=== PATIENT | male | born 1960 | race Caucasian/White ===

== ENCOUNTER 2022-01-27 15:58 | Outpatient (REF) | payer BC, SELFPAY ==
--- OUTSIDE RECORDS SUMMARY | 2022-01-27 16:01 | XMS_ITS | Encounter Summary ---
:1960 Author Organization [facility] Address [address] [place] [address] Care Team Providers Name Role Phone Bc Alvarado Primary Care Provider [phone] Unknown, Provider Primary Care Provider Encounter Details Date Type Department Care Team Description 01/26/2017 Historical Results Only [facility] - Janes Ramírez MD [facility] - Main [facility] [address] [place], [place] [address] Social History Tobacco Use Types Packs/Day Years Used Date Smoking Tobacco: Never Assessed Sex Assigned at Date Recorded Not on file documented as of this encounter Plan of Treatment Not on filedocumented as of this encounter Procedures Procedure Name Priority Date/Time Associated Diagnosis Comme nts TSH Routine 01/26/2017 12:08 EST Results for this procedure are i n the results section . documented in this encounter Results TSH (01/26/2017 12:08 EST) athologist Signature THYROID STIM 2.14 0.46 - 01/26/2017 [facility] 4.68 19:06 EST [facility] uIU/ml CENTER LAB Specimen Anatomical Collection Method Collection Time Receive d Time (Source) Location / / Volume Laterality 01/26/2017 12:08 01/26/2017 EST 18:06 EST Noman Ramírez MD CHEMISTRY & BLOOD GAS ORDERA BLES Performing Organization Address City/State/ZIP Code Phon e Number [facility] [address] [place] [address] [facility] documented in this encounter Visit Diagnoses Not on filedocumented in this encounter Care Teams Windsmith Relationship Specialty Start Date End Date Bc Alvarado FNP PCP - General 03/21/13 04/28/[address] [place] [address] [phone] Unknown, Provider, PCP - General 04/29/17 01/25/19 documented as of this encounter
--- OUTSIDE RECORDS SUMMARY | 2022-01-27 16:01 | XMS_ITS | Encounter Summary ---
:[address] [facility] Address [address] [place] [address] Care Team Providers Name Role Phone Farhan Moss MD Primary Care Provider Encounter Details Date Type Department Care Team Description 05/30/2021 Travel Social History Tobacco Use Types Packs/Day Years Used Date Smoking Tobacco: Former Pipe Smokeless Tobacco: Never Alcohol Use Standard Drinks/Week Comments Not Currently 2 (1 standard drink = 0.6 oz pure alcoho l) Sex Assigned at Date Recorded Not on file COVID-19 Exposure Response Date Recorded In the last 10 days, have you been in contact with No / Unsu re 05/30/2021 8:38 EDT someone who was confirmed or suspected to have Coronavirus/COVID-19? documented as of this encounter Functional Status Functional Status Response Date of Assessment Are you deaf or do you have serious difficulty hearing? No 03/12/2021 Are you blind or do you have serious difficulty seeing, No 02/24/2021 even when wearing glasses? Do you have serious difficulty walking or climbing No 02/24/2021 stairs? (5 years old or older) Do you have difficulty dressing or bathing? (5 years old No 02/24/2021 or older) Because of a physical, mental, or emotional condition, No 05/30/2021 does this person have difficulty doing errands alone such as visiting a doctor's office or shopping? Cognitive Status Response Date of Assessment Because of a physical, mental, or emotional condition, No 05/30/2021 does this person have serious difficulty concentrating, remembering, or making decisions? documented as of this encounter Plan of Treatment Not on filedocumented as of this encounter Visit Diagnoses Not on filedocumented in this encounter Care Teams Coating Engineer Relationship Specialty Start Date End Date Farhan Moss MD PCP - General Emergency Medicine 03/25/21 [address] [place] [address] documented as of this encounter
--- OUTSIDE RECORDS SUMMARY | 2022-01-27 16:01 | XMS_ITS | Encounter Summary ---
:[address] [facility] Address [address] [place] [address] Care Team Providers Name Role Phone Bc Alvarado Primary Care Provider [phone] Unknown, Provider Primary Care Provider Encounter Details Date Type Department Care Team Description 03/07/2016 Historical Results Only [facility] - Janes Ramírez MD [facility] - Main [facility] [address] [place], [place] [address] Social History Tobacco Use Types Packs/Day Years Used Date Smoking Tobacco: Never Assessed Sex Assigned at Date Recorded Not on file documented as of this encounter Plan of Treatment Not on filedocumented as of this encounter Procedures Procedure Name Priority Date/Time Associated Comments Diagnosis COMPLETE BLOOD COUNT Routine 03/07/2016 15:13 Res ults for this WITH DIFFERENTIAL EST procedure are in (AUTO) the results section. PSA, ULTRASENSITIVE, Routine 03/07/2016 15:13 Res ults for this DIAGNOSTIC, S EST procedure are in UROLOGY/ONCOLOGY USE the res ults ONLY section. C REACTIVE PROTEIN Routine 03/07/2016 15:13 Resul ts for this EST procedure are i n the results section. TSH Routine 03/07/2016 15:13 Results for this EST procedure are i n the results section. HEPATIC FUNCTION Routine 03/07/2016 15:13 Results for this PANEL (ALB,ALK EST procedure are in PHOS,ALT,AST,DBIL,TOT the re sults TIFFANY,TOT PROT) section. BASIC METABOLIC PANEL Routine 03/07/2016 15:13 Re sults for this (BMP) EST procedure are i n the results section. documented in this encounter Results TSH (03/07/2016 15:13 EST) athologist Signature THYROID STIM 2.74 0.35 - 03/07/2016 [facility] 5.50 18:03 [facility] uIU/mL [place] [facility] Specimen Anatomical Collection Method Collection Time Receive d Time (Source) Location / / Volume Laterality 03/07/2016 15:13 03/07/2016 EST 17:11 EST Noman Ramírez MD CHEMISTRY & BLOOD GAS ORDERA BLES Performing Organization Address City/State/ZIP Code Phon e Number [facility] [address] LAB PSA, ULTRASENSITIVE, DIAGNOSTIC, S UROLOGY/ONCOLOGY USE ONLY (03/07/2016 15:13 EST) Analysis Performed At Patho logist Time [facility] PSA ULTRASENSTIVE 1.540 0.00 - 03/07/2016 [facility] 3.50 ng/mL 18:10 [facility] Comment: Method: Siemens [place]-Chemil[employer] nescence/LOCI technology Specimen Anatomical Collection Method Collection Time Receive d Time (Source) Location / / Volume Laterality 03/07/2016 15:13 03/07/2016 EST 17:11 EST Noman Ramírez MD CHEMISTRY & BLOOD GAS ORDERA BLES Performing Organization Address City/State/ZIP Code Phon e Number [facility] [address] LAB HEPATIC FUNCTION PANEL (ALB,ALK PHOS,ALT,AST,DBIL,TOT TIFFANY,TOT PROT) (03/07/2016 15:13 EST) athologist Signature Albumin % 4.2 3.4 - 5.0 03/07/2016 [facility] g/dL 18:10 [facility] ALKALINE 84 42 - 122 03/07/2016 [facility] PHOSPHATASE - U/L 18:10 [facility] BILIRUBIN TOTAL 0.5 0.0 - 1.0 03/07/2016 [facility] mg/dL 18:10 [facility] TOTAL PROTEIN - 7.6 6.4 - 8.2 03/07/2016 [facility] gm/dl 18:10 [facility] SGOT/AST - [facility] 19 10 - 37 03/07/2016 [facility] U/L 18:10 [facility] SGPT/ALT - [facility] 32 12 - 78 03/07/2016 [facility] U/L 18:10 [facility] BILIRUBIN DIRECT 0.1 0.0 - 0.2 03/07/2016 [facility] - [facility] mg/dL 18:10 [facility] Specimen Anatomical Collection Method Collection Time Receive d Time (Source) Location / / Volume Laterality 03/07/2016 15:13 03/07/2016 EST 17:11 EST Noman Ramírez MD CHEMISTRY & BLOOD GAS ORDERA BLES Performing Organization Address City/State/ZIP Code Phon e Number [facility] [address] LAB C REACTIVE PROTEIN (03/07/2016 15:13 EST) athologist Signature C-Reactive <2.9 0.0 - 3.0 03/07/2016 [facility] Protein mg/L 18:15 [facility] Specimen Anatomical Collection Method Collection Time Receive d Time (Source) Location / / Volume Laterality 03/07/2016 15:13 03/07/2016 EST 17:11 EST Noman Ramírez MD CHEMISTRY & BLOOD GAS ORDERA BLES Performing Organization Address City/State/ZIP Code Phon e Number [facility] [address] LAB BASIC METABOLIC PANEL (BMP) (03/07/2016 15:13 EST) athologist Signature BUN - [facility] 18 7 - 18 03/07/2016 [facility] mg/dL 18:10 [facility] CALCIUM - [facility] 8.6 8.5 - 10.1 03/07/2016 [facility] mg/dL 18:10 [facility] Chloride 104 98 - 107 03/07/2016 [facility] mEq/L 18:10 [facility] CO2 Total 25 21 - 32 03/07/2016 [facility] mEq/L 18:10 [facility] CREATININE 0.75 0.5 - 1.3 03/07/2016 [facility] mg/dL 18:10 [facility] eGFR >60 03/07/2016 [facility] 18:10 EST [facility] Comment: Chronic renal impairment is defined as G FR <60 Multiply result by 1.210 for Carlita rican patients. Anion Gap 12 5 - 15 03/07/2016 18:10 EST [facility] GLUCOSE - [facility] 89 70 - 100 mg/dL 03/07/2016 18:10 EST [facility] Potassium 4.0 3.5 - 5.0 mEq/L 03/07/2016 18:10 EST [facility] TRAL [facility] Sodium 141 135 - 145 mEq/L 03/07/2016 18:10 EST [facility] Specimen Anatomical Collection Method Collection Time Receive d Time (Source) Location / / Volume Laterality 03/07/2016 15:13 03/07/2016 EST 17:11 EST Noman Ramírez MD CHEMISTRY & BLOOD GAS ORDERA BLES Performing Organization Address City/State/ZIP Code Phon e Number [facility] [address] LAB COMPLETE BLOOD COUNT WITH DIFFERENTIAL (AUTO) (03/07/2016 15:13 EST) P athologist Signature ABSOLUTE 5.46 1.7 - 7.0 03/07/2016 [facility] NEUTROPHIL COUN 10e3/ul 17:37 [facility] BASO # - [facility] 0.04 0.0 - 0.3 03/07/2016 [facility] 10e3/uL 17:37 [facility] BASO % - [facility] 1 0 - 2 % 03/07/2016 [facility] 17:37 [facility] EOS # - [facility] 0.17 0.05 - 0.5 03/07/2016 [facility] 10e3/uL 17:37 [facility] EOS % - [facility] 2 0 - 5 % 03/07/2016 [facility] 17:37 [facility] GRAN % - [facility] 63 40 - 80 % 03/07/2016 [facility] 17:37 [facility] HEMATOCRIT - 43.8 36.0 - 03/07/2016 [facility] 52.0 % 17:37 [facility] HEMOGLOBIN - 14.5 13.7 - 03/07/2016 [facility] 17.5 g/dl 17:37 [facility] IG# - [facility] 0.01 0 - 0.07 03/07/2016 [facility] 10e3/uL 17:37 [facility] IG% - [facility] 0.1 0 - 0.9 % 03/07/2016 [facility] 17:37 [facility] LYMPH # - [facility] 2.53 0.9 - 2.9 03/07/2016 [facility] 10e3/uL 17:37 [facility] LYMPH% - [facility] 29 20 - 40 % 03/07/2016 [facility] 17:37 [facility] MEAN CORPUSCULAR 29.5 26 - 34 pg 03/07/2016 [facility] - [facility] 17:37 [facility] MEAN CORPUSCULAR 33.1 31 - 36 03/07/2016 [facility] CONC - [facility] g/dL 17:37 [facility] MEAN CELL VOLUME 89.0 77 - 100 03/07/2016 [facility] - CV fl 17:37 [facility] MONO # - [facility] 0.53 0.3 - 0.9 03/07/2016 [facility] 10e3/uL 17:37 [facility] MONO% - [facility] 6 0 - 12 % 03/07/2016 [facility] 17:37 [facility] PLATELET COUNT 363 150 - 400 03/07/2016 [facility] 10e3/ul 17:37 [facility] RED BLOOD COUNT 4.92 4.3 - 5.7 03/07/2016 [facility] - CV 10e6/ul 17:37 [facility] RED CELL DISTRI 13.2 11.8 - 03/07/2016 [facility] WIDTH - [facility] 15.6 % 17:37 [facility] WHITE BLOOD 8.7 3.5 - 10.5 03/07/2016 [facility] COUNT - CV 10e3/ul 17:37 [facility] Specimen Anatomical Collection Method Collection Time Receive d Time (Source) Location / / Volume Laterality 03/07/2016 15:13 03/07/2016 [facility] 17:11 EST Noman Ramírez MD HEMATOLOGY & PF4 ORDERABLES Performing Organization Address City/State/ZIP Code Phon e Number [facility] [address] LAB documented in this encounter Visit Diagnoses Not on filedocumented in this encounter Care Teams Ore Crushing Dust Collector Relationship Specialty Start Date End Date Bc Alvarado FNP PCP - General 03/21/13 04/28/[address] [place] [address] [phone] Unknown, Provider, PCP - General 04/29/17 01/25/19 documented as of this encounter
--- OUTSIDE RECORDS SUMMARY | 2022-01-27 16:01 | XMS_ITS | Encounter Summary ---
:1960 Author Organization [facility] Address [address] [place] [address] Care Team Providers Name Role Phone Brooks Duarte MD Primary Care Provider [phone] Encounter Details Date Type Department Care Team Description 03/12/2021 Travel Social History Tobacco Use Types Packs/Day Years Used Date Smoking Tobacco: Former Cigarettes Pipe Smokeless Tobacco: Never Alcohol Use Standard Drinks/Week Comments Yes 2 (1 standard drink = 0.6 oz pure pt rep orts having 2-3 drinks per alcohol) week Sex Assigned at Date Recorded Not on file COVID-19 Exposure Response Date Recorded In the last month, have you been in contact with No / Unsure 03/12/2021 2:45 EST someone who was confirmed or suspected to have Coronavirus / COVID-19? documented as of this encounter Functional Status [...] of a physical, mental, or emotional condition, do No 02/24/2021 you have difficulty doing errands alone such as visiting a doctor's office or shopping? (15 years old or older) Cognitive Status Response Date of Assessment Because of a physical, mental, or emotional condition, do No 02/24/2021 you have serious difficulty concentrating, remembering, or making decisions? (5 years old or older) documented as of this encounter Plan of Treatment Not on filedocumented as of this encounter Visit Diagnoses Not on filedocumented in this encounter Care Teams Manager Ship Relationship Specialty Start Date End Date Brooks Duarte MD PCP - General Family Medicine - Primary 02/21/21 [address] [place] [address] documented as of this encounter
--- OUTSIDE RECORDS SUMMARY | 2022-01-27 16:01 | XMS_ITS | Encounter Summary ---
:1960 Author Organization [facility] Address [address] [place] [address] Care Team Providers Name Role Phone Bc Alvarado FUNERAL HOME ASSISTANT Primary Care Provider [phone] Reason for Visit Reason Onset Date Comments Appointment Related 02/02/2017 Encounter Details Date Type Department Care Team Description 02/02/2017 Telephone [facility] Dilip Turpin MD Appointment Related General Surgery - [place] [address] [facility] [address] [facility] [address] [place] [address] [phone] (Wo rk) Social History Tobacco Use Types Packs/Day Years Used Date Smoking Tobacco: Never Assessed Sex Assigned at Date Recorded Not on file documented as of this encounter Miscellaneous Notes Telephone Encounter - Cassandra Chin RN - 02/02/2017 1036 EST Spoke to patient regarding an appt. He would like an urgent appt for his ear. He was prescribed antibiotics by Dr. Ramírez and feels his symptoms are better but is having pain on the outside of the ear. Iexplained if he wanted an urgent appt. Dr. Ramírez would need to speak directly to Dr. Turpin and we could accommodate him otherwise we could schedule him an appt and put him on the wait list. Perla will schedule and follow up with patient. Telephone Encounter - Page Doty - 02/02/2017 0904 EST Jun is returning a call to Cassandra in regards to his appointment with Dr. Turpin for his left ear. Please call good @ [phone] documented in this encounter Plan of Treatment Not on filedocumented as of this encounter Visit Diagnoses Not on filedocumented in this encounter Care Teams Investment Associate Relationship Specialty Start Date End Date Bc Alvarado FNP PCP - General 03/21/13 04/28/[address] [place] [phone] documented as of this encounter
--- OUTSIDE RECORDS SUMMARY | 2022-01-27 16:01 | XMS_ITS | Encounter Summary ---
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, unspecified chronicity Chronic deep vein thrombosis (DVT) of femoral vein of both lower extremities Steven Rodríguez MD [facility] Vascular Lab 3v Procedures Duplex Study for DVT, Bilat legs [facility] [place] [phone] [place] [address] Referral ID Status Reason Start Expiration Visits Visits Date Date Requested Authorized [id number] New Request Specialty 01/11/2023 1 1 Service 2 Requested Encounter Details Date Type Department Care Team Description 01/09/2022 Office Visit Vascular Surgery at Steven Rodríguez De ep vein thrombosis (DVT) of iliac vein of both lower extremities, unspecified chronicity; [facility] Chronic deep vein thrombosis (DVT) of fe moral vein of both lower extremities [facility] [address] [place] VASCULAR SURGERY [address] [place] [id number] [phone] Social History Tobacco Use Types Packs/Day Years Used Date Smoking Tobacco: Former Smokeless Tobacco: Never Alcohol Use Standard Drinks/Week Comments Not Currently 0 (1 standard drink = 0.6 oz pure alcoho l) about once a month Sex Assigned at Date Recorded Not on file documented as of this encounter Last Filed Vital Signs Vital Sign Reading Time Taken Comments Blood Pressure 109/84 01/09/2022 10:18 AM EST Pulse 69 01/09/2022 10:18 AM EST Temperature - - Respiratory Rate - - Oxygen Saturation - - Inhaled Oxygen Concentration - - Weight 95.3 kg (210 lb) 01/09/2022 10:18 AM EST pt repo rted Height 177.8 cm (5' 10) 01/09/2022 10:18 AM EST pt rep orted Body Mass Index 30.13 01/09/2022 10:18 AM EST documented in this encounter Progress Notes Steven Rodríguez MD - 01/09/2022 10:00 AM EST V[facility] Surgery Clinic Progress Note Subjective: Patient doing well, has some areas of numbness in areas near the incisions, which has improved Current Outpatient Medications: ??? acetaminophen (Tylenol) 325 mg Tablet, Take 650 mg by mouth every 6 hours as needed for Pain., Disp: , Rfl: ??? apixaban (Eliquis) 5 mg Tablet, Take 5 mg by mouth 2 times daily., Disp: , Rfl: ??? levothyroxine (SYNTHROID) 88 mcg Tablet, Take 88 mcg by mouth daily., Disp: , Rfl: ??? omeprazole (PRILOSEC) 20 mg Capsule, Delayed Release(E.C.), Take 20 mg by mouth daily., Disp: , Rfl: Objective: BP 133/77 HR 63 Incisions healing well, good color Areas of numbness around the previous surgical sites Duplex: Patent stented inferior vena cava with no direct evidence of thrombus. Flow is somewhat reduced in respirophasicity. Patent stented bilateral common and external iliac veins with no direct evidence of thrombus. Flow throughout is somewhat reduced in respirophasicity. No identifiable change when compared to the previous exam done 05/03/2021. Assessment: 60yo M s/p endovascular mechanical thrombectomy of IVC and right common and external iliac vein, IVC, right common and right external iliac vein stenting, compression thrombectomy of right lower leg, right leg 4-compartment fasciotomies (03/12/21), closures of fasciotomies (03/14/21, 03/18/21), placementof left common iliac vein stent placement, left common and external iliac vein stent placement, retrieval of IVC filter (03/15/21), and stent placement of left common iliac vein, balloon venoplasty and stent of placement of left femoral vein (05/02/21) doing well post-operatively. 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 He has no leg swelling. His incisions are all well- healed. His duplex shows widely patent bilateral common iliac and vena cava stents with good respiratory phasicity. He is currently on Eliquis for anticoagulation. We discussed the potential need for long-term anticoagulation especially considering the extensive nature of the stenting that he has had and is a vena cava and iliac veins. At a minimum he would need to take this for 1 year. It will likely be life-long. I will plan to see him back in the office in 6 months with repeat noninvasive vascular studies. documented in this encounter Plan of Treatment Not on filedocumented as of this encounter Visit Diagnoses Diagnosis 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, unspecified chronicity Chronic deep vein thrombosis (DVT) of fe moral vein of both lower extremities documented in this encounter Care Teams Traffic Police Officer Relationship Specialty Start Date End Date Farhan Moss MD PCP - General Emergency Medicine 04/26/21 [address] [place] [address] documented as of this encounter
--- OUTSIDE RECORDS SUMMARY | 2022-01-27 16:01 | XMS_ITS | Encounter Summary ---
:1960 Author Organization [facility] Address [address] [place] [address] Care Team Providers Name Role Phone Unknown, Provider Primary Care Provider Encounter Details Date Type Department Care Team Description 09/09/[address] [facility] [place], [facility] Radiology Resul ts INSTRUMENTATION TECH [phone] [place] [address] Social History Tobacco Use Types Packs/Day Years Used Date Smoking Tobacco: Former Cigarettes Pipe Smokeless Tobacco: Never Alcohol Use Standard Drinks/Week Comments Yes 0 (1 standard drink = 0.6 oz pure alcoho l) occ Sex Assigned at Date Recorded Not on file documented as of this encounter Plan of Treatment Not on filedocumented as of this encounter Procedures Procedure Name Priority Date/Time Associated Diagnosis Comme nts XR TOE LEFT 2 OR 09/09/2018 14:53 Results for this MORE VIEWS EDT procedure are i n the results section. documented in this encounter Results XR TOE LEFT 2 OR MORE VIEWS (09/09/2018 14:53 EDT) Anatomical Region Laterality Modality Lower Extremities Left Other Specimen (Source) Anatomical Collection Method Collection Time Re ceived Time Location / / Volume Laterality 09/09/2018 14:53 EDT Narrative 09/09/2018 14:57 EDT ? EXAM: RADIOLOGY EXPRESS CARE/EXP CARE TOE EX. D/ (1446) ? CLINICAL INFORMATION: ? S99.922A, INJURY OF LEFT GREAT TO E ? Exam: Left toe x-ray. ? Indication: S99.922A, INJURY OF L EFT GREAT TOE LEFT FOOT INNJURY ? Comparison:None. ? Technique: 3 views of the left to e. ? Findings: There is a subtle nondi splaced, slightly comminuted ? fracture of the great toe distal phalanx. ? No other fracture is detected. ? Impression: ? Nondisplaced great toe distal pha lanx fracture. ? REPORT SIGNED IN OTHER VENDOR SYSTEM 09/09/2018 ?Reported B y: Michael Sullivan MD ? CC: ? Transcribed Date/Time: 09/09/2018 (1457) ? Fur Tailor: ? Printed Date/Time: 11/17/2018 (14 51) ? PAGE 1 ? Harriett d Report ? Procedure Note Michael Sullivan E - 01/04/2019 EXAM: RADIOLOGY EXPRESS CARE/EXP CARE T OE EX. D/ (1446) CLINICAL INFORMATION: S99.922A, INJURY OF LEFT GREAT TOE Exam: Left toe x-ray. Indication: S99.922A, INJURY OF LEFT GR EAT TOE LEFT FOOT INNJURY Comparison:None. Technique: 3 views of the left toe. Findings: There is a subtle nondisplace d, slightly comminuted fracture of the great toe distal phalan x. No other fracture is detected. Impression: Nondisplaced great toe distal phalanx f racture. REPORT SIGNED IN OTHER VENDOR SYSTEM 09/09/2018 Reported By: Michael Sullivan MD CC: Transcribed Date/Time: 09/09/2018 (1561 ) Fur Tailor: Printed Date/Time: 11/17/2018 (5202) PAGE 1 Signed Report Nereyda Raimundo Malik INSTRUMENTATION TECH IMG DIAGNOSTIC IMAGING ORDER LARRY documented in this encounter Visit Diagnoses Not on filedocumented in this encounter Care Teams Orthopaedic Nurse Relationship Specialty Start Date End Date Unknown, Provider, PCP - General 04/29/17 01/25/19 documented as of this encounter
--- OUTSIDE RECORDS SUMMARY | 2022-01-27 16:01 | XMS_ITS | Encounter Summary ---
:1960 Author Organization [facility] Address [address] [place] [address] Care Team Providers Name Role Phone Unknown, Provider Primary Care Provider Encounter Details Date Type Department Care Team Description 09/09/2018 Hospital Encounter [facility] - Unknown, Johana [facility] [phone] [place] [address] (Work) [place] [address] Social History Tobacco Use Types Packs/Day Years Used Date Smoking Tobacco: Former Cigarettes Pipe Smokeless Tobacco: Never Alcohol Use Standard Drinks/Week Comments Yes 0 (1 standard drink = 0.6 oz pure alcoho l) occ Sex Assigned at Date Recorded Not on file documented as of this encounter Medications at Time of Discharge Medication Sig Dispensed Refills Start Date End Date LEVOTHYROXINE SODIUM Take by mouth 0 (LEVOTHYROXINE ORAL) daily. omeprazole (PRILOSEC) 20 mg Take 20 mg by 0 capsule mouth daily. ibuprofen (MOTRIN) 200 mg Take 200 mg by 0 02/24/2021 tablet mouth every 6 hours. documented as of this encounter Discharge Disposition Disposition Code Departure Means Destination Home or Self Group Home documented in this encounter Plan of Treatment Not on filedocumented as of this encounter Visit Diagnoses Not on filedocumented in this encounter Care Teams Internal Audit Director Relationship Specialty Start Date End Date Unknown, Provider, PCP - General 04/29/17 01/25/19 documented as of this encounter
--- OUTSIDE RECORDS SUMMARY | 2022-01-27 16:01 | XMS_ITS | Encounter Summary ---
:1960 Author Organization [facility] Address [address] [place] [address] Care Team Providers Name Role Phone Brooks Duarte MD Primary Care Provider [phone] Reason for Visit Reason Comments Hip Pain Pt comes in via EMS w/ c/o R LE pain - hx of clot and normally takes Eliquis, however stopped on Thursday fo r colonoscop (did take 1 dose at 0100 this morning). RLE purple, no pal pable pulses. Encounter Details Date Type Department Care Team Description 03/12/2021 Emergency [facility] - Rosemary Smith Critical lower limb [facility] [place], [place] ischemia (HCC) Department [address] (Primary Dx) [address] [place] [address] [phone] (Wo rk) Social History Tobacco Use Types [...] / COVID-19? documented as of this encounter Last Filed Vital Signs Vital Sign Reading Time Taken Comments Blood Pressure 134/90 03/12/2021 0341 EST Pulse 77 03/12/2021 0233 EST Temperature 36.3 ??C (97.3 ??F) 03/12/2021 0233 EST Respiratory Rate 19 03/12/2021 0341 EST Oxygen Saturation 98% 03/12/2021 0341 EST Inhaled Oxygen Concentration - - Weight 86.2 kg (190 lb) 03/12/2021 0244 EST Height - - Body Mass Index 28.47 02/23/2021 0700 EST documented in this encounter Functional Status Functional Status Response [...] or older) documented as of this encounter Medications at Time of Discharge Medication Sig Dispensed Refills Start Date End Date apixaban (ELIQUIS) 5 mg Take 2 Tablets by 60 Tablet 2 02/24 tablet mouth 2 times daily. Take 2 tablets (10 mg) twice daily for 6 days then drop down to 5mg (one tablet) twice daily on March 02. LEVOTHYROXINE SODIUM Take by mouth daily. 0 (LEVOTHYROXINE ORAL) omeprazole (PRILOSEC) 20 mg Take 20 mg by mouth 0 capsule daily. documented as of this encounter Discharge Disposition Disposition Code Departure Means Destination Comments Another Health Care Patient DC via ambulance Institution Not Defined to [facility]. Verbal report aba cooper to Nawaf MOCTEZUMA in the ED documented in this encounter ED Notes Rosemary Smith DO - 03/12/2021 0341 ESTAssociated Order(s): Critical Care Emergency Department Visit Assessment and ED Course Zander Waldron is a 60 y.o. 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 On exam patient has a Right femoral pulse detected only with Doppler. Right popliteal pulse detectedfaintly by palpation but easily with Doppler. PT pulse 1+ with palpation. DP pulse not detected withpalpation or Doppler. His right lower extremity is cool, mottled, and cyanotic. Patient's exam is consistent with an ischemic limb. Dr. Charles ([facility] vascular surgery) was consulted and accepted the patient for transfer. She askedthe patient's leg be wrapped from his toes to his thigh with an Kristopher wrap. She has the patient be started on a heparin drip as opposed to being given tPA. Patient's case also discussed with Dr. Sevilla ([facility] emergency physician) who accepts the patient in transfer to the ED. Patient continues to have little to no pain relief with Dilaudid. Giving a small dose of ketamine discussed with Dr. Charles and she is okay with this plan. Final diagnoses: Critical lower limb ischemia (HCC) Disposition: Transfered to Another Facility Chief complaint: Right hip pain HPI Zander Waldron is a 60 y.o. male who presents to the ED for right hip pain, right leg tingling/numbness, right leg swelling, and right leg turning blue. Patient reports he woke up at 0045 with the symptoms. Patient took a dose of Eliquis at 1 AM. Patient was given a total of 200 mcg of fentanyl and 1000 mg of Tylenol in route to the emergency room with little to no relief of his pain. No shortness of breath or chest pain. Patient's son provides patient's relevant recent medical history. Patient was admitted on 02/21/2021to the ICU after having clots found in his bilateral common iliacs extending into his IVC as well asa duplicated IVC. Patient was in the hospital for 3 days. He was on heparin for 48 hours and then transition to Eliquis. Patient tested positive for COVID on 02/26/2021. Patient has not had any recent COVID symptoms. Patient stopped taking Eliquis 4 days ago for a colonoscopy/endoscopy which was done at [facility] yesterday. Son reports after the procedure yesterday patient's had increased fatigue andsome difficulty walking due to pain in his right leg, right hip, and lower back. Patient was supposed to resume taking his Eliquis last night but forgot. History was provided by: Patient, patient's son Patient's pertinent PMH, FH, SH were reviewed and edited as necessary. Review of Systems Constitutional: Negative for fever. HENT: Negative for sore throat. Eyes: Negative for redness. Respiratory: Negative for cough and shortness of breath. Cardiovascular: Negative for chest pain. Gastrointestinal: Negative for abdominal pain, nausea and vomiting. Genitourinary: Negative. Musculoskeletal: Positive for back pain and joint pain. Negative for falls. Skin: Negative for rash. Neurological: Positive for tingling. Negative for headaches. Physical Exam BP 134/90 Pulse 77 Temp 36.3 ??C (97.3 ??F) (Temporal) Resp 19 Wt 86.2 kg (190 lb) SpO2 98% BMI 28.47 kg/m?? A medical screening exam was performed. Physical Exam Vitals and nursing note reviewed. Constitutional: General: He is not in acute distress. Appearance: He is well-developed and well-nourished. HENT: Right Ear: External ear normal. Left Ear: External ear normal. Nose: No nasal discharge. Mouth/Throat: Mouth: Mucous membranes are moist. Eyes: Conjunctiva/sclera: Conjunctivae normal. Cardiovascular: Rate and Rhythm: Normal rate and regular rhythm. Comments: Right femoral pulse detected only with Doppler. Right popliteal pulse detected faintly bypalpation but easily with Doppler. PT pulse 1+ with palpation. DP pulse not detected with palpation or Doppler. Pulmonary: Effort: Pulmonary effort is normal. No respiratory distress. Comments: Normal work of breathing, able to speak in full sentences, no audible wheezing, no cough Abdominal: Palpations: Abdomen is soft. Tenderness: There is no abdominal tenderness. Musculoskeletal: Cervical back: Normal range of motion and neck supple. Comments: Decreased range of motion right lower extremity. Patient is able to move his leg minimally at the hip but is unable to pick it up off the bed. Patient is able to flex and extend his right knee. Patient is unable to flex or extend his ankle or wiggle his toes. Right lower extremity is tense and swollen from his thigh to his foot. Left lower extremity is normal. Skin: General: Skin is warm and dry. Capillary Refill: Capillary refill takes less than 2 seconds. Comments: Right lower extremity from mid thigh to toes is cool to touch, mottled and cyanotic. Neurological: General: No focal deficit present. Mental Status: He is alert and oriented to person, place, and time. Psychiatric: Mood and Affect: Mood and affect normal. Laboratory results independently reviewed. Procedures Critical Care Performed by: Rosemary Smith DO Authorized by: Rosemary Smith DO Critical care provider statement: Critical care time (minutes): 75 Critical care time was exclusive of: Separately billable procedures and treating other patients andteaching time Critical care was necessary to treat or prevent imminent or life-threatening deterioration of the following conditions: Circulatory failure Critical care was time spent personally by me on the following activities: Ordering and performing treatments and interventions, development of treatment plan with patient or surrogate, ordering and review of laboratory studies, discussions with consultants, pulse oximetry, re-evaluation of patient's condition, evaluation of patient's response to treatment, examination of patient, obtaining history from patient or surrogate and review of old charts I assumed direction of critical care for this patient from another provider in my specialty: no documented in this encounter Plan of Treatment Not on filedocumented as of this encounter Procedures Procedure Name Priority Date/Time Associated Comments Diagnosis ED CRITICAL CARE Routine 03/12/2021 3:45 Results for this EST procedure are i n the results section. ED CRITICAL CARE Routine 03/12/2021 3:45 Results for this EST procedure are i n the results section. ED CRITICAL CARE Routine 03/12/2021 3:45 Results for this EST procedure are i n the results section. ED CRITICAL CARE Routine 03/12/2021 3:45 Results for this EST procedure are i n the results section. TROPONIN I STAT 03/12/2021 2:38 Results for this EST procedure are i n the results section. PTT STAT 03/12/2021 2:38 Results for this EST procedure are i n the results section. PROTIME STAT 03/12/2021 2:38 Results for this EST procedure are i n the results section. FIBRINOGEN STAT 03/12/2021 2:38 Results for this EST procedure are i n the results section. D-DIMER STAT 03/12/2021 2:38 Results for this EST procedure are i n the results section. COMPLETE BLOOD COUNT STAT 03/12/2021 2:38 Resu lts for this AND DIFFERENTIAL EST procedure a re in the results section. COMPREHENSIVE STAT 03/12/2021 2:38 Results for this METABOLIC PANEL (CMP) EST proced ure are in the results section. documented in this encounter Results CT CRITICAL CARE, E/M 30-74 MINUTES, CT CRITICAL CARE, ADDL 30 MIN, HC - CRITICAL CARE ILL/INJURED PATIENT INIT 30-74 MIN, HC - CRITICAL CARE ILL/INJURED PATIENT ADDL 30 MIN (03/12/2021 3:45 EST) Narrative [facility] EKG - 03/12/2021 3:45 EST Rosemary Smith, DO ? 03/12/2021 ??8:20 Critical Care Performed by: Rosemary Smith DO Authorized by: Rosemary Smith DO Critical care provider statement: ??Critical care time (minutes): ??75 ??Critical care time was exclusive of: ??Separately billable procedures and treating other patients and teaching carolyn sykes ??Critical care was necessary to treat or prevent imminent or life-threatening deterioration of the fo llowing conditions: ??Circulatory failure ??Critical care was time spent personal ly by me on the following activities: ??Ordering and performing tr eatments and interventions, development of treatment plan with patie nt or surrogate, ordering and review of laboratory studies, discussion s with consultants, pulse oximetry, re-evaluation of patient's con dition, evaluation of patient's response to treatment, examination of pa tient, obtaining history from patient or surrogate and review of old c harts ??I assumed direction of critical care for this patient from another provider in my specialty: no ?? Rosemary Smith DO PROCEDURE/MINOR SURGICAL ORD ERABLES Performing Organization Address City/State/ZIP Code Phon e Number [facility] EKG PTT (03/12/2021 2:38 EST) P athologist Signature PTT 29 26 - 37 03/12/2021 [facility] secs 3:02 EST [facility] Specimen Anatomical Collection Method / Collection Time Recei jas Time (Source) Location / Volume Laterality Blood VENOUS BLOOD / Venipuncture / 03/12/2021 2:38 03/12/19 22 2:44 Unknown Unknown EST EST Rosemary Smith DO HEMATOLOGY & PF4 ORDERABLES Performing Organization Address City/[facility]/ZIP Code Phon e Number [facility] [address] [place] [address] (ABNORMAL) PROTIME (03/12/2021 2:38 EST) athologist Signature I.N.R. 1.3 (H) 0.9 - 1.1 03/12/2021 [facility] Ratio 3:02 [facility] Pro Time 14.9 (H) 10.4 - 12.6 03/12/2021 [place] secs 3:02 EST [facility] Specimen Anatomical Collection Method / Collection Time Recei jas Time (Source) Location / Volume Laterality Blood VENOUS BLOOD / Venipuncture / 03/12/2021 2:38 03/12/19 22 2:44 Unknown Unknown EST EST Narrative [facility] - 022 3:02 EST Moderate Intensity Coumadin INR = 2.0-3.0 Adjustments in anticoagulant therapy dos e should be based on the INR and NOT on the Protime. Rosemary Smith DO HEMATOLOGY & PF4 ORDERABLES Performing Organization Address City/[facility]/ZIP Code Phon e Number [facility] [address] [place] [address] (ABNORMAL) FIBRINOGEN (03/12/2021 2:38 EST) athologist Signature Fibrinogen 502 (H) 171 - 384 03/12/2021 [facility] mg/dL 3:02 EST [facility] Specimen Anatomical Collection Method / Collection Time Recei jas Time (Source) Location / Volume Laterality Blood VENOUS BLOOD / Venipuncture / 03/12/2021 2:38 03/12/19 22 2:44 Unknown Unknown EST EST Rosemary Smith DO HEMATOLOGY & PF4 ORDERABLES Performing Organization Address City/State/ZIP Code Phon e Number [facility] [address] [place] [address] (ABNORMAL) D-DIMER (03/12/2021 2:38 EST) athologist Signature D-Dimer 1,794 (H) <230 ng/mL 03/12/2021 [facility] DDU 3:02 EST [facility] Specimen Anatomical Collection Method / Collection Time Recei jas Time (Source) Location / Volume Laterality Blood VENOUS BLOOD / Venipuncture / 03/12/2021 2:38 03/12/19 22 2:44 Unknown Unknown EST EST Narrative [facility] - 022 3:02 EST Cutoff value for the exclusion of DVT an d PE: 230 ng/mL D-dimer units. Any use of the age-adjusted cutoff value is a post-anal ytic modification of this FDA-approved test and is considered off-label use of the test result. Rosemary Smith DO HEMATOLOGY & PF4 ORDERABLES Performing Organization Address City/[facility]/ZIP Code Phon e Number [facility] [address] [place] [id number] TROPONIN I (03/12/2021 2:38 EST) athologist Signature Troponin I <0.034 <0.034 03/12/2021 [facility] (ng/mL) ng/mL 3:11 [facility] Specimen Anatomical Collection Method / Collection Time Recei jas Time (Source) Location / Volume Laterality Blood VENOUS BLOOD / Venipuncture / 03/12/2021 2:38 03/12/19 22 2:44 Unknown Unknown EST EST Narrative [facility] - 022 3:11 EST The results of this assay can be falsely lowered due to the consumption of Biotin. Rosemary Smith DO CHEMISTRY & BLOOD GAS ORDERA BLES Performing Organization Address City/[facility] Code Phon e Number [facility] [address] [place] [phone] (ABNORMAL) COMPREHENSIVE METABOLIC PANEL (CMP) (03/12/2021 2:38 EST) Analysis Performed At Patho logist Time Signature Sodium 136 136 - 145 03/12/2021 [facility] mmol/L 3:00 EST [facility] Potassium 3.7 3.5 - 5.0 03/12/2021 [facility] mmol/L 3:00 [facility] Chloride 100 96 - 110 03/12/2021 [facility] mmol/L 3:00 [facility] CO2 Total 26 22 - 32 03/12/2021 [facility] mmol/L 3:00 [facility] Glucose 133 (H) 70 - 100 03/12/2021 [facility] mg/dL 3:00 [facility] BUN 19 10 - 26 03/12/2021 [facility] mg/dL 3:00 [facility] Creatinine 0.81 0.66 - 03/12/2021 [facility] 1.25 mg/dL 3:00 [facility] eGFR 96 >60 03/12/2021 [facility] mL/min/1.7 3:[address] LAB Total Protein 7.2 6.3 - 8.2 03/12/2021 [facility] g/dL 3:00 [facility] Albumin 3.9 3.4 - 4.9 03/12/2021 [facility] g/dL 3:00 [facility] Alkaline 86 38 - 126 03/12/2021 [facility] Phosphatase U/L 3:00 [facility] AST 28 15 - 46 03/12/2021 [facility] U/L 3:00 [facility] ALT 19 <50 U/L 03/12/2021 [facility] 3:00 [facility] Bilirubin, Total 0.5 <1.4 mg/dL 03/12/2021 [facility] 3:00 [facility] Calcium 8.5 8.5 - 10.5 03/12/2021 [facility] mg/dL 3:00 [facility] Albumin/Globulin 1.2 1.0 - 2.5 03/12/2021 [facility] Ratio 3:00 [facility] Anion Gap 10 8 - 16 03/12/2021 [facility] 3:00 [facility] Specimen Anatomical Collection Method / Collection Time Recei jas Time (Source) Location / Volume Laterality Blood VENOUS BLOOD / Venipuncture / 03/12/2021 2:38 03/12/19 22 2:44 Unknown Unknown [facility] Rosemary Smith DO CHEMISTRY & BLOOD GAS ORDERA BLES Performing Organization Address City/State/ZIP Code Phon e Number [facility] [address] [place] [address] (ABNORMAL) COMPLETE BLOOD COUNT AND DIFFERENTIAL (03/12/2021 2:38 EST) [facility] Method Time Signature WBC 13.87 (H) 4.00 - 03/12/2021 [facility] 10.40 2:46 [facility] K/cmm [facility] RBC 4.06 (L) 4.36 - 03/12/2021 [facility] 5.78 2:46 [facility] M/m [facility] Hemoglobin 11.5 (L) 13.8 - 03/12/2021 [facility] 17.3 2:46 [facility] gm/dL [facility] HCT 36.7 (L) 39.5 - 03/12/2021 [facility] 50.2 % 2:46 [facility] MCV 90 81 - 95 03/12/2021 [facility] fl 2:46 [facility] MCH 28.3 27.6 - 03/12/2021 [facility] 33.0 pg 2:46 [facility] MCHC 31.3 (L) 32.8 - 03/12/2021 [facility] 36.4 2:46 [facility] gm/dL [facility] RDW-CV 12.5 <14.2 % 03/12/2021 [facility] 2:46 [facility] RDW-SD 41.6 <46.0 fl 03/12/2021 [facility] 2:46 [facility] PLT 580 (H) 141 - 377 03/12/2021 [facility] K/cmm 2:46 [facility] MPV 8.8 (L) 9.5 - 03/12/2021 [facility] 12.7 fl 2:46 [facility] Neutrophils 78.6 % 03/12/2021 [facility] 2:46 [facility] Lymphocytes 11.8 % 03/12/2021 [facility] 2:46 [facility] Monocytes 8.1 % 03/12/2021 [facility] 2:46 [facility] Eosinophils 0.7 % 03/12/2021 [facility] 2:46 [facility] Basophils 0.4 % 03/12/2021 [facility] 2:46 [facility] Immature Grans 0.4 % 03/12/2021 [facility] 2:46 [facility] Absolute 10.90 (H) 2.20 - 03/12/2021 [facility] Neutrophils 8.85 2:46 [facility] Absolute 1.64 1.09 - 03/12/2021 [facility] Lymphocytes 3.30 2:46 [facility] Absolute 1.12 (H) 0.10 - 03/12/2021 [facility] Monocytes 0.80 2:46 EST [facility] Absolute 0.10 0.03 - 03/12/2021 [facility] Eosinophils 0.61 2:46 [facility] Absolute 0.05 0.01 - 03/12/2021 [facility] Basophils 0.11 2:46 [facility] Absolute 0.06 0.00 - 03/12/2021 [facility] Immature Grans 0.06 2:46 [facility] Type of Auto 03/12/2021 [facility] Differential: 2:46 [facility] Specimen Anatomical Collection Method / Collection Time Recei jas Time (Source) Location / Volume Laterality Blood VENOUS BLOOD / Venipuncture / 03/12/2021 2:38 03/12/19 22 2:44 Unknown Unknown EST EST Rosemary Smith DO PACKAGES & DNA PROBE ORDERAB LES Performing Organization Address City/State/ZIP Code Phon e Number [facility] [address] [place] [address] documented in this encounter Visit Diagnoses Diagnosis 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 76.2 kg Adjusted weight (13.716 mL/hr, rounded to 13.5 mL/hr), intravenous, CONTINUOUS, Starting on Thu03/12/21 at 0330, Until Thu03/12/21 at 0605, STAT heparin injection 3,050 Units 3,050 Units (rounded from 3,048 Units = 40 Units/kg ? 76.2 kg Adjusted weight), intravenous, P RN, Starting on Thu03/12/21 at 0312, Until Thu03/12/21 at 0605, Other, Per Heparin Protocol, Rout ine heparin injection 6,100 Units Given 03/12/2021 3:20 EST 6,100 Units 6,100 Units (rounded from 6,096 Units = 80 Units/kg ? 76.2 kg Adjusted weight), intravenous, NOW X1, 1 dose, On Thu03/12/21 at 0330, STAT heparin injection 6,100 Units 6,100 Units (rounded from 6,096 Units = 80 Units/kg ? 76.2 kg Adjusted weight), intravenous, P RN, Starting on Thu03/12/21 at 0312, Until Thu03/12/21 at 0605, Other, Per Heparin Protocol, Rout ine HYDROmorphone (DILAUDID) injection 0.2 m g Given 03/12/2021 2:38 EST 1 mg 0.2 mg, intravenous, NOW X1, 1 dose, On Thu03/12/21 at 0300, Routine HYDROmorphone (DILAUDID) injection 1 mg Given 03/12/2021 3:09 EST 1 mg 1 mg, intravenous, NOW X1, 1 dose, On Thu03/12/21 at 0330, Routine HYDROmorphone (DILAUDID) injection 1 mg Given 03/12/2021 3:40 EST 1 mg 1 mg, intravenous, NOW X1, 1 dose, On Thu03/12/21 at 0415, Routine ondansetron (PF) (ZOFRAN) injection 4 mg Given 03/12/2021 2:40 EST 4 mg 4 mg, intravenous, NOW X1, 1 dose, On Thu03/12/21 at 0300, STAT ondansetron (PF) (ZOFRAN) injection 4 mg Given 03/12/2021 3:40 EST 4 mg 4 mg, intravenous, NOW X1, 1 dose, On Thu03/12/21 at 0415, STAT sodium chloride 0.9 % BOLUS 1,000 mL New Bag 03/12/2021 2:40 EST 1,000 mL 1,000 mL, intravenous, NOW X1, 1 dose, On Thu03/12/21 at 0300, STAT documented in this encounter Active and Recently Administered Medications Times are shown in EST. Scheduled Medication Order 03/10/2021 03/11/2021 03/12/2021 heparin injection 6,100 Units (COMPLETED) 032 (Given - Provider: Lolly Salas RN) 6,100 Units (rounded from 6,096 Units = 80 Units/kg ? 76.2 kg Adjusted weight), intravenous, NOW X1, 1 dose, On Thu03/12/21 at 0330, STAT HYDROmorphone (DILAUDID) injection 0.2 mg (COMPLETED) 023 (Given - Provider: Tonya Cage RN - Comment: wrong dose ordered - verbal order) 0.2 mg, intravenous, NOW X1, 1 dose, On Thu03/12/21 at 0300, Rou luis alberto HYDROmorphone (DILAUDID) injection 1 mg (COMPLETED) 030 (Given - Provider: Lolly Salas RN) 1 mg, intravenous, NOW X1, 1 dose, On Thu03/12/21 at 0330, Routi ne HYDROmorphone (DILAUDID) injection 1 mg (COMPLETED) 0340 (Given - Provider: Lolly Salas RN) 1 mg, intravenous, NOW X1, 1 dose, On Thu03/12/21 at 0415, Routi ne ondansetron (PF) (ZOFRAN) injection 4 mg (COMPLETED) 0240 (Given - Provider: Tonya Cage RN) 4 mg, intravenous, NOW X1, 1 dose, On Thu03/12/21 at 0300, STAT ondansetron (PF) (ZOFRAN) injection 4 mg (COMPLETED) 0340 (Given - Provider: Lolly Salas RN) 4 mg, intravenous, NOW X1, 1 dose, On Thu03/12/21 at 0415, STAT sodium chloride 0.9 % BOLUS 1,000 mL (COMPLETED) 0240 (New Bag - Provider: Tonya Cage, RN) 1,000 mL, intravenous, NOW X1, 1 dose, On Thu03/12/21 at 0300, S TAT Continuous Medication Order 03/10/2021 03/11/2021 03/12/2021 heparin in D5W 25,000 unit/250 mL(100 unit/mL) infusion 0318 (New Bag - Provider: Lolly Salas RN) 18 Units/kg/hr ? 76.2 kg Adjusted weight (13.716 mL/hr, rounded to 13.5 mL/hr), intravenous, at 13.5 mL/hr, CONTINUOUS, Starting on Thu03/12/21 at 0330, Until Thu03/12/21 at 0605, STAT PRN Medication Order 03/10/2021 03/11/2021 03/12/2021 heparin injection 3,050 Units(Linked Group 1) 3,050 Units (rounded from 3,048 Units = 40 Units/kg ? 76.2 kg Adjusted weight), intravenous, PRN, Starting on Thu03/12/21 at 0312, Until Thu03/12/21 at 0605, Other, Per Heparin Protocol, Routine heparin injection 6,100 Units(Linked Group 1) 6,100 Units (rounded from 6,096 Units = 80 Units/kg ? 76.2 kg Adjusted weight), intravenous, PRN, Starting on Thu03/12/21 at 0312, Until Thu03/12/21 at 0605, Other, Per Heparin Protocol, Routine Linked Groups Order Group 1: heparin injection 6,100 UnitsJump to med 6,100 Units (rounded from 6,096 Units = 80 Units/kg ? 76.2 kg Adjusted weight), intravenous, PRN, Starting on Thu03/12/21 at 0312, Until Thu03/12/21 at 0605, Other, Per Heparin Protocol, Routine Or heparin injection 3,050 UnitsJump to med 3,050 Units (rounded from 3,048 Units = 40 Units/kg ? 76.2 kg Adjusted weight), intravenous, PRN, Starting on Thu03/12/21 at 0312, Until Thu03/12/21 at 0605, Other, Per Heparin Protocol, Routine documented in this encounter Orders Medications Ordered That Might Not Have Count Last Ord ered Date First Ordered Date Been Administered heparin injection 3,050 Units 1 03/12/2021 heparin injection 6,100 Units 1 03/12/2021 documented in this encounter Care Teams Supervisor [employer] Relationship Specialty Start Date End Date Brooks Duarte MD PCP - General Family Medicine - Primary 02/21/21 2 [address] [place] [address] documented as of this encounter
--- OUTSIDE RECORDS SUMMARY | 2022-01-27 16:01 | XMS_ITS | Encounter Summary ---
:1960 Author Organization [facility] Address [address] [place] [address] Care Team Providers Name Role Phone Bc Alvarado Primary Care Provider [phone] Encounter Details Date Type Department Care Team Description 03/09/2017 Abstract [facility] Noman Ramírez MD [address] [place] [id number] Social History Tobacco Use Types Packs/Day Years Used Date Smoking Tobacco: Never Assessed Sex Assigned at Date Recorded Not on file documented as of this encounter Plan of Treatment Not on filedocumented as of this encounter Visit Diagnoses Not on filedocumented in this encounter Historical Medications This list may reflect changes made after this encounter. Medication Sig Dispensed Refills Start Date End Date omeprazole (PRILOSEC) 20 Take 20 mg by mouth 0 mg capsule daily. ibuprofen (MOTRIN) 200 mg Take 200 mg by mouth 0 02/24/2021 tablet every 6 hours. Cephalexin 500 mg tablet Take 500 mg by mouth 0 03/10/2017 every 6 hours. added in this encounter Care Teams Suspension Cord Tier Relationship Specialty Start Date End Date Bc Alvarado FNP PCP - General 03/21/13 04/28/[address] [place] [id number] documented as of this encounter
--- OUTSIDE RECORDS SUMMARY | 2022-01-27 16:01 | XMS_ITS | Encounter Summary ---
:1960 Author Organization [facility] [place] [address] Care Team Providers Name Role Phone Farhan Moss MD Primary Care Provider Encounter Details Date Type Department Care Team Description 01/09/2022 Travel Social History Tobacco Use Types Packs/Day [...] on filedocumented in this encounter Care Teams Web Weaver Relationship Specialty Start Date End Date Farhan Moss MD PCP - General Emergency Medicine 04/26/21 [address] [place], [place] [address] documented as of this encounter
--- OUTSIDE RECORDS SUMMARY | 2022-01-27 16:01 | XMS_ITS | Encounter Summary ---
:1960 Author Organization [facility] Address [address] [place] [address] Care Team Providers Name Role Phone Unknown, Provider Primary Care Provider Encounter Details Date Type Department Care Team Description 07/20/2017 Historical Results Only [facility] - Janes Ramírez MD [facility] - [place] [address] [place], [place] [id number] Social History Tobacco Use Types Packs/Day Years [...] Name Priority Date/Time Associated Diagnosis Comme nts PSA, Routine 07/20/2017 7:18 EDT Results for this ULTRASENSITIVE, procedure ar e in DIAGNOSTIC, S the results UROLOGY/ONCOLOGY section. USE ONLY TSH Routine 07/20/2017 7:18 EDT Results for this procedure are i n the results section. LIPID PROFILE Routine 07/20/2017 7:18 EDT Results for this (INCLUDES procedure are i n CHOLESTEROL, the results TRIGLYCERIDES, HDL, section. LDL) documented in this encounter Results (ABNORMAL) LIPID PROFILE (INCLUDES CHOLESTEROL, TRIGLYCERIDES, HDL, LDL) (07/20/2017 7:18 EDT) athologist Signature Triglyceride 252 <150 mg/dL 07/20/2017 [facility] 8:32 EDT [facility] Comment: Adult: Normal: ?<150 mg/dl ? Borderline High: 150-199 mg/dl ? High: ?200-499 mg/dl ? Very High: >pg=029 Cholesterol 218 (H) <200 mg/dL 07/20/2017 8:32 EDT [facility] Comment: Acceptable: ??<200 Borderline: ??200-239 High: ?> or = 240 Chol/HDL Ratio 4.8 0 - 5.0 07/20/2017 8:32 EDT [facility] Comment: DESIRABLE RATIO IS LESS THAN 4.1 PATIENTS ARE CONSIDERED AT RISK: WOMEN RATIO >5 MEN RATIO >6 FASTING? - [facility] Yes 07/20/2017 7:18 EDT [facility] HDL 45 40 - 60 mg/dL 07/20/2017 8:32 EDT [facility] Comment: ?? Reference Range Low: ? < 40 ??mg/dL Normal: ??40-60 mg/dL High: ?>= 60 mg/dL LDL CHOLESTEROL - 123 (H) 60 - 100 mg/dL 07/20/2017 8:32 E DT [facility] Non HDL Cholesterol 173 mg/dl 07/20/2017 8:32 EDT [facility] Comment: Desirable: ?Less than 130 Borderline High: ??130-159 High: ? 160-189 Very High: ?Greater than or eq ual to 190 Specimen Anatomical Collection Method Collection Time Receive d Time (Source) Location / / Volume Laterality 07/20/2017 7:18 07/20/2017 7 :18 EDT EDT Narrative [facility] - 018 8:32 EDT Does PT Have a Latex Allergy? NO Noman Ramírez MD CHEMISTRY & BLOOD GAS ORDERA BLES Performing Organization Address City/State/ZIP Code Phon e Number [facility] [address] LAB PSA, ULTRASENSITIVE, DIAGNOSTIC, S UROLOGY/ONCOLOGY USE ONLY (07/20/2017 7:18 EDT) Analysis Performed At Patho logist Time Signature PSA ULTRASENSTIVE 1.490 <4.0 ng/mL 07/22/2017 [facility] 7:44 EDT [facility] Comment: Test methodology is Siemens Chemilumines cence. The lower limit of detection is 0.010 ng/mL. ??Res ults from different methods or kits cannot be used interchan geably. ?? Serum PSA results cannot be interpreted as absolute evidence of presence or absence of malignancy. PERFORMED at [facility] at [facility]. ??[address] [place] [id number]. Laboratory Flat Locker: ??Anupam chavarria M.D. Specimen Anatomical Collection Method Collection Time Receive d Time (Source) Location / / Volume Laterality 07/20/2017 7:18 07/20/2017 7 :18 EDT EDT Narrative [facility] - 018 7:44 EDT Does PT Have a Latex Allergy? NO Noman Ramírez MD CHEMISTRY & BLOOD GAS ORDERA BLES Performing Organization Address City/[facility]/ZIP Code Phon e Number [facility] [address] [place] [address] LAB TSH (07/20/2017 7:18 EDT) P athologist Signature THYROID STIM 2.54 0.46 - 07/20/2017 [facility] 4.68 9:01 EDT [facility] uIU/ml CENTER LAB Specimen Anatomical Collection Method Collection Time Receive d Time (Source) Location / / Volume Laterality 07/20/2017 7:18 07/20/2017 7 :18 EDT EDT Narrative [facility] - 018 9:01 EDT Does PT Have a Latex Allergy? NO Noman Ramírez MD CHEMISTRY & BLOOD GAS ORDERA BLES Performing Organization Address City/[facility]/ZIP Code Phon e Number [facility] [address] [place] [address] LAB documented in this encounter Visit Diagnoses Not on filedocumented in this encounter Care Teams Flipping Machine Operator Relationship Specialty Start Date End Date Unknown, Provider, PCP - General 04/29/17 01/25/19 documented as of this encounter
--- OUTSIDE RECORDS SUMMARY | 2022-01-27 16:01 | XMS_ITS | Encounter Summary ---
:1960 Author Organization [facility] Address [address] [place] [address] Care Team Providers Name Role Phone Brooks Duarte MD Primary Care Provider [phone] Encounter Details Date Type Department Care Team Description 02/21/2021 Travel Social History Tobacco Use Types Packs/Day [...] been in contact with No / Unsure 02/21/2021 16:44 EST someone who was confirmed or suspected to have Coronavirus / COVID-19? documented as of this encounter Functional Status Functional Status Response Date of Assessment Are you deaf or do you have serious difficulty hearing? No 02/21/2021 documented as of this encounter Plan of Treatment Not on filedocumented as of this encounter Visit Diagnoses Not on filedocumented in this encounter Additional Health Concerns Infection Onset Date Last Indicated Resolved Time R/O COVID-19Comment: Negative test 02/21/2021 02/21/2021 02/22/2021 0:14 EST documented as of this encounter Care Teams Art Sales Consultant Relationship Specialty Start Date End Date Brooks Duarte MD PCP - General Family Medicine - Primary 02/21/21 [address] [place] [address] documented as of this encounter
--- OUTSIDE RECORDS SUMMARY | 2022-01-27 16:01 | XMS_ITS | Encounter Summary ---
:1960 Author Organization [facility] Address [address] [place] [address] Care Team Providers Name Role Phone Farhan Moss MD Primary Care Provider Encounter Details Date Type Department Care Team Description 03/25/2021 Travel Social History Tobacco Use Types Packs/Day Years Used Date Smoking Tobacco: Former Pipe Smokeless Tobacco: Never Alcohol Use Standard Drinks/Week Comments Not Currently 2 (1 standard drink = 0.6 oz pure alcoho l) Sex Assigned at Date Recorded Not on file COVID-19 Exposure Response Date Recorded In the last month, have you been in contact with No / Unsure 03/25/2021 8:29 EST someone who was confirmed or suspected [...] on filedocumented in this encounter Care Teams Transit Operations Supervisor Relationship Specialty Start Date End Date Farhan Moss MD PCP - General Emergency Medicine 03/25/21 [address] [place] [address] documented as of this encounter
--- OUTSIDE RECORDS SUMMARY | 2022-01-27 16:01 | XMS_ITS | Encounter Summary ---
:1960 Author Organization [facility] Address [address] [place] [address] Care Team Providers Name Role Phone Bc Alvarado Primary Care Provider [phone] Unknown, Provider Primary Care Provider Srinivas Parra MD Primary Care Provider Brooks Duarte MD Primary Care Provider [phone] Farhan Moss MD Primary Care Provider Reason for Visit Reason Onset Date Comments Appointment Related 12/15/2015 Encounter Details Date Type Department Care Team Description 12/15/2015 Telephone [facility]- Paul Rajput , Appointment Related Main [place] MD [address], [place] [id number] Social History Tobacco Use Types Packs/Day Years Used Date Smoking Tobacco: Never Assessed Sex Assigned at Date Recorded Not on file documented as of this encounter Miscellaneous Notes Telephone Encounter - Sofie Walton - 12/15/2015 1405 EDT Canceling appointment because ear problem has gone away- no need to reschedule documented in this encounter Plan of Treatment Not on filedocumented as of this encounter Visit Diagnoses Not on filedocumented in this encounter Additional Health Concerns Infection Onset Date Last Indicated Resolved Time R/O COVID-19Comment: Negative test 02/21/2021 02/21/2021 02/22/2021 0:14 EST documented as of this encounter Care Teams Veterinary Assistant Relationship Specialty Start Date End Date Bc Alvarado, PCP - General 03/21/13 [facility] [address] [phone] Unknown, Kelli, PCP - General 04/29/17 01/25/19 Srinivas Parra MD PCP - General 01/26/19 05/08/19 Brooks Duarte MD PCP - General Family Medicine - Primary 02/21/[address] [place] [address] Farhan Moss MD PCP - General Emergency Medicine 03/25/21 26 [facility] [address] [place] [address] documented as of this encounter
--- OUTSIDE RECORDS SUMMARY | 2022-01-27 16:01 | XMS_ITS | Clinical Summary ---
:1960 Author Organization [facility] [place] [address] Care Team Providers Name Role Phone Farhan Moss MD Primary Care Provider Allergies No known active allergies Medications Medication Sig Dispensed Refills Start Date End Date Status omeprazole (PRILOSEC) 20 Take 20 mg by 0 Active mg Capsule, Delayed mouth daily. Release(E.C.) levothyroxine Take 88 mcg by 0 A ctive (SYNTHROID) 88 mcg mouth daily. Tablet apixaban (Eliquis) 5 mg Take 5 mg by 0 Active Tablet mouth 2 times daily. acetaminophen (Tylenol) Take 650 mg by 0 Active 325 mg Tablet mouth every 6 hours as needed for Pain. 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 Encounters Date Type Specialty Care Team Description 01/09/2022 Office Visit Hematology and Natacha Velásquez Acute de ep vein thrombosis (DVT) of both lower extremities, unspecified vein; Oncology MD Shan Anticoagulated by anticoagulation treatment 01/09/2022 Office Visit Vascular Surgery Marlene Rodríguez Deep vei n thrombosis (DVT) of iliac vein of both lower extremities, unspecified chronicity; MD Deshawn Chronic deep ve in thrombosis (DVT) of femoral vein of both lower extremities 01/09/2022 Tech Visit Vascular Surgery Avila Bai IVC thro [place]osis [place], [place] 01/09/2022 Travel from Last 3 Months Social History Tobacco Use Types Packs/Day Years Used Date Smoking Tobacco: Former Smokeless Tobacco: Never Alcohol Use Standard Drinks/Week Comments Not Currently 0 (1 standard drink = 0.6 oz pure alcoho l) about once a month Sex Assigned at Date Recorded Not on file Last Filed Vital Signs Vital Sign Reading Time Taken Comments Blood Pressure 126/89 01/09/2022 11:22 AM EST Pulse 76 01/09/2022 11:22 AM EST Temperature 36.2 ??C (97.2 ??F) 01/09/2022 11:22 AM EST Respiratory Rate 18 01/09/2022 11:22 AM EST Oxygen Saturation 98% 01/09/2022 11:22 AM EST Inhaled Oxygen Concentration - - Weight 95 kg (209 lb 7 oz) 01/09/2022 11:22 AM EST Height 173.5 cm (5' 8.31) 01/09/2022 11:22 AM EST Body Mass Index 31.56 01/09/2022 11:22 AM EST Plan of Treatment Health Maintenance Due Date Last Done Comments Covid-19 Vaccine (#1) 01/14/1960 HIV screen 07/13/1977 Hepatitis C Screening 07/13/1977 Lipid Screening 07/13/1977 Tdap adult 07/13/1978 Tetanus vaccine 07/13/1978 Zoster vaccine (1 of 2) 07/13/2009 Advance Directive 07/13/2014 Influenza (Flu) vaccine (1 of 1 - 10/31/2021 Influenza standard series) Colonoscopy 03/11/2024 03/11/2021, 03/11/2021, 05/07/2020, Additional history exists Diabetes Screening (HgbA1C or 05/03/2024 05/03/2021, 2021, Glucose) 03/18/2021, Additional history exists Medical Devices Implanted Type Area Hazardous Material Technician Device Shelf Model / Identifier Expiration Serial / Date Lot Stent Self Expanding [id number] Braide d Venous Wallstent ([id number]) - [id number] Right: [employer]OSTON 07/19/2022 [id number] / Implanted: Qty: 1 on 03/12/2021 by Marlene Rodríguez MD [facility] Arterial SCIENTIFIC / CORPORATION - [id number] [employer] SCI Description: Right Iliac Stent Self Expanding [id number] Braided Venous Monroe tent ([id number])-03/15/2021 IMPLANTS Left: BOSTON 07/31/2022 [id number] / Implanted: Qty: 1 on 03/15/2021 by Marlene Rodríguez MD [facility] Radiojar / Access Scientific - [id number] [employer]OSTON SCI Description: left iliac vein Stent Self Expanding [id number] Braided Venous Monroe tent ([id number])-05/02/2021 IMPLANTS Left: BOSTON 02/03/2023 [id number] / Implanted: Qty: 1 on 05/02/2021 by Marlene Rodríguez MD [facility] [employer] [id number] / CORPORATION - [id number] BOSTON SCI Explanted Type Area Hazardous Material Technician Device Shelf Model / Identifier Expiration Serial / Date Lot System Embolic Protection [id number] Vena Cava Navalign ([id number]) - [id number] IMPLANTS Right: [employer] - 11/01/2023 [id number] / Implanted: Qty: 1 on 03/12/2021 by Marlene Rodríguez MD [facility] Vein [employer] / Explanted: Qty: 1 on 03/15/2021 by Marlene Rodríguez MD [id number] Description: jugular. IR to charge-- not an OR charge. Procedures Procedure Name Priority Date/Time Associated Diagnosis Comme nts DUPLEX FOR DVT Routine 01/09/2022 9:03 AM IVC thrombosis Resul ts for this BILAT LEGS EST procedure are i n the results section. from Last 3 Months Results Duplex Study for DVT, Bilat legs (01/09/2022 9:03 AM EST) Component Value Ref Test Analysis Performed At [facility] Range Method Time Signature VB Text Department: Vascular Surgery Lab VASCUBASE Report Patient: [id number] (AMILCAR PATE) CPT: 47126 Referring Physician: MARLENE RODRÍGUEZ ?? Indications: f/u IVC and bilateral iliac vein stents. ??R FV and profunda vein thrombus in the proximal thigh. Findings: RIGHT: Patent common femoral vein and popliteal vein with sp ontaneous, respirophasic Doppler wavefo mayuri that respond normally to augmentation maneuvers. The common femoral vein, sap henofemoral junction, femoral vein through the thigh and popliteal vein are fully compressible. Patent posterior tibial and peroneal veins with no evidence of thrombus. LEFT: Patent common femoral vein and popliteal vein with spo ntaneous, respirophasic Doppler wavefo mayuri that respond normally to augmentation maneuvers. The common femoral vein, sap henofemoral junction, femoral vein through the thigh and popliteal vein are fully compressible. Patent posterior tibial and peroneal veins with no evidence of thrombus. Interpretation: RIGHT: No evidence of lower extremity deep venous thrombosis . Improvement compared to previous exam 06/04/21 where the was f emoral vein and profunda vein thrombus in the proximal thigh. LEFT: No evidence of lower extremity deep venous thrombosi s. No significant change compared to previous exam 06/04/21. Electronically Signed by: MARLENE RODRÍGUEZ on 2022-01-09 03:04 :39 PM VB Text End of Report VASCUBASE Report Specimen (Source) Anatomical Collection Method Collection Time Re ceived Time Location / / Volume Laterality 01/09/2022 9:03 AM EST Marlene Rodríguez MD VASCULAR ORDERABLES Performing Organization Address City/State/ZIP Code Phon e Number VASCUBASE from Last 3 Months Insurance Payer Benefit Plan / Subscriber ID Effective Phone Address T ype Group Dates [employer] [place] [place] [facility] [id number] 2021-Pres [phone] [address] [place] [address] [place] [address] [place] [id number] 2021-Pres [phone] [address] [place] [address] Advance Directives Documents on File Type Date Recorded Patient Tamper Operator Explanati on Personal Tamper Operator 05/11/2020 4:59 PM karlie pate Latest Code Status on File Code Status Date Activated Date Inactivated Comments Attempt Cardiopulmonary Resuscitation - 05/02/2021 2:45 PM 2 3:38 PM Inpatient Question Answer Comments Code Status decision made by: Patient Code Status History Code Status Date Activated Date Inactivated Comments Attempt Cardiopulmonary Resuscitation - 05/02/2021 9:39 AM 2 2:45 PM Inpatient Question Answer Comments Code Status decision made by: Patient Attempt Cardiopulmonary Resuscitation - 03/12/2021 10:21 AM 2021 5:17 PM Inpatient Question Answer Comments Code Status decision made by: Patient Attempt Cardiopulmonary Resuscitation - 03/12/2021 9:27 AM 022 10:21 AM Inpatient Question Answer Comments Code Status decision made by: Patient Full Code 10/28/2016 12:32 PM 10/28/2016 4:40 PM Question Answer Comments Does patient have capacity to make decision: Yes Care Teams Reimbursement Analyst Relationship Specialty Start Date End Date Farhan Moss MD PCP - General Emergency Medicine 04/26/21 [address] [place], [place] [address]
--- OUTSIDE RECORDS SUMMARY | 2022-01-27 16:01 | XMS_ITS | Clinical Summary ---
:1960 Author Organization [facility] Address [address] [place] [address] Care Team Providers Name Role Phone Farhan Moss MD Primary Care Provider Allergies No known active allergies Medications Medication Sig Dispensed Refills Start Date End Date Status omeprazole (PRILOSEC) Take 20 mg by 0 Active 20 mg capsule mouth daily. LEVOTHYROXINE SODIUM Take by mouth 0 Active (LEVOTHYROXINE ORAL) daily. apixaban (ELIQUIS) 5 mg Take 2 Tablets by 60 Tablet 2 02/25/20 21 Active tablet mouth 2 times daily. Take 2 tablets (10 mg) twice daily for 6 days then drop down to 5mg (one tablet) twice daily on March 02. Additional Information Patient taking differently: 5 mg oral 2 TIMES DAILY, Take 2 tablets (10 mg) twice daily for 6 days then drop down to 5mg (one tablet) twice daily on March 02., Reported on 03/25/2021 traMADol (ULTRAM) 50 mg Take 50 mg by mouth every 0 Active tablet 6 hours as needed for Pain. oxyCODONE (ROXICODONE) 5 mg Take 5 mg by mouth every 0 Active immediate release tablet 4 hours as needed for Pain. traMADol (ULTRAM) 50 mg Take 1 Tablet by mouth 10 Tablet 0 Active tablet every 6 hours as needed for Pain. Daily Max: 200 mg Additional Information Patient not taking. Reported on 05/30/2021 acetaminophen (TYLENOL) 325 mg tablet Take 650 mg by mouth every 6 0 Active hours as needed. 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 Surgical History Surgery Date Site/Laterality Comments TONSILLECTOMY KNEE SURGERY Right liriano cyst UMBILICAL HERNIA REPAIR Medical History Medical History Date Comments Environmental allergies Heartburn Hiatal hernia Hypothyroid Family History Medical History Relation Comments Asthma Daughter Relation Status Comments Daughter Father Mother Alive Social History Tobacco Use Types Packs/Day Years Used Date Smoking Tobacco: Former Pipe Smokeless Tobacco: Never Alcohol Use Standard Drinks/Week Comments Not Currently 2 (1 standard drink = 0.6 oz pure alcoho l) Sex Assigned at Date Recorded Not on file Obstetrics History Last Filed Vital Signs Vital Sign Reading Time Taken Comments Blood Pressure 109/82 03/25/2021 1152 EST Pulse 89 03/25/2021 0826 EST Temperature 36.5 ??C (97.7 ??F) 03/25/2021 0826 EST Respiratory Rate 16 03/25/2021 1125 EST Oxygen Saturation 96% 03/25/2021 1152 EST Inhaled Oxygen Concentration - - Weight 93.6 kg (206 lb 4.8 oz) 05/30/2021 0839 EDT Height 172.7 cm (5' 8) 05/30/2021 0839 EDT Body Mass Index 31.37 05/30/2021 0839 EDT Plan of Treatment Health Maintenance Due Date Last Done Comments Hepatitis C Screen 1960 Social Determinants Of Health (SDOH) 1960 COVID-19 Vaccine (#1) 01/14/1960 Behavioral Health Screen 1971 HIV Screening 1975 Advance Directive 07/13/1977 Preventive Care Visit 07/13/1977 Pertussis (Adult) Immunization 07/13/1978 Tetanus (Adult) Immunization 07/13/1978 Barium Enema (Colon Cancer Screening) 07/13/2004 Colonoscopy (Colon Cancer Screening) 07/13/2004 Colorectal Cancer Screening 07/13/2004 Fecal Blood Test (Colon Cancer Screening) 07/13/2004 Fecal DNA (Colon Cancer Screening) 07/13/2004 Sigmoidoscopy (Colon Cancer Screening) 07/13/2004 Shingles Immunization (1 of 2) 07/13/2009 Influenza Immunization (Adult) (#1) 2021 Lipid Profile Screening (Cholesterol) 07/20/2022 07/20/2017 Insurance Payer Benefit Plan / Subscriber ID Effective Phone Address T ype Group Dates [place] [id number] 2021-Prese [address] [place] [id number] [employer] Personal/Family Self 1960 [address] [place] [address] [facility] [address] [employer] Personal/Family Self 1960 [address] [place] [address] [place] [address] [employer] durbin Personal/Family Self 1960 [address] [place] [address] [place] [id number] Advance Directives For more information, please contact: [phone] Latest Code Status on File Code Status Date Activated Date Inactivated Comments Full Code 02/22/2021 0:05 02/24/2021 15:14 When the patient has NO PULSE: Full Code / CPR Who Made the Decision? Default/Not Discussed Care Teams Unit Receptionist Relationship Specialty Start Date End Date Farhan Moss MD PCP - General Emergency Medicine 03/25/21 [facility] [address] [place] [id number]
--- OUTSIDE RECORDS SUMMARY | 2022-01-27 16:01 | XMS_ITS | Encounter Summary ---
:1960 Author Organization [facility] Address [address] [place] [address] Care Team Providers Name Role Phone Brooks Duarte MD Primary Care Provider [phone] Encounter Details Date Type Department Care Team Description 02/21/2021 Hospital Encounter [facility] Secondary Reads [place] Social History Tobacco Use Types Packs/Day Years Used Date Smoking Tobacco: Former Cigarettes Pipe Smokeless Tobacco: Never Alcohol Use Standard Drinks/Week Comments Yes 2 (1 standard drink = 0.6 oz pure pt rep orts having 2-3 drinks per alcohol) week Sex Assigned at Date Recorded Not on file documented as of this encounter Functional Status Functional Status Response Date of Assessment Are you deaf or do you have serious difficulty hearing? No 02/21/2021 documented as of this encounter Medications at Time of Discharge Medication Sig Dispensed Refills Start Date End Date apixaban (ELIQUIS) 5 mg Take 2 Tablets by 60 Tablet 2 02/24 tablet mouth 2 times daily. Take 2 tablets (10 mg) twice daily for 6 days then drop down to 5mg (one tablet) twice daily on March 02. LEVOTHYROXINE SODIUM Take by mouth 0 (LEVOTHYROXINE ORAL) daily. omeprazole (PRILOSEC) 20 Take 20 mg by mouth 0 mg capsule daily. apixaban 5 mg (74 tabs) Take 10 mg by mouth 74 Tablet 0 02/24/2021 tablets,dose pack 2 times daily for 7 days, THEN 5 mg 2 times daily for 21 days. ibuprofen (MOTRIN) 200 mg Take 200 mg by 0 02/24/2021 tablet mouth every 6 hours. documented as of this encounter Discharge Disposition Disposition Code Departure Means Destination Home or Self Care documented in this encounter Plan of Treatment Not on filedocumented as of this encounter Procedures Procedure Name Priority Date/Time Associated Diagnosis Comme nts CT OUTSIDE IMAGES Routine 02/22/2021 7:34 EST Res ults for this BODY procedure are i n the results section. documented in this encounter Results CT OUTSIDE IMAGES BODY (02/22/2021 7:34 EST) Specimen (Source) Anatomical Location Collection Method / Collectio n Time Received Time / Laterality Volume Narrative 02/22/2021 7:34 EST This is a non-reportable exam. Provider Unknown MD LEWIS OTHER IMAGING ORDERABLES documented in this encounter Visit Diagnoses Not on filedocumented in this encounter Care Teams Honing Machine Operator Semiautomatic Relationship Specialty Start Date End Date Brooks Duarte MD PCP - General Family Medicine - Primary 02/21/21 [address] [place] [address] documented as of this encounter
--- OUTSIDE RECORDS SUMMARY | 2022-01-27 16:01 | XMS_ITS | Encounter Summary ---
:1960 Author Organization Health system Address [address] [place] [address] Care Team Providers Name Role Phone Bc Alvarado GINNER Primary Care Provider Reason for Visit Reason Comments Ear Infection (Otitis Media) symptoms started approx 1 month ago had antibiotic but still has very sensitive ear s. left ear worse. higher frequency hearing loss. katy es drainage. 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 hx of ear inf has a child Consult (Routine) - Closed Specialty Diagnoses / Procedures Referred By Contact Refer red To Contact Otolaryngology Diagnoses Ear pain Noman Ramírez MD Rose, James Gary, MD [address] [place] [address] [address] [place] [address] Phone: Fax: Referral ID Status Reason Start Date Expiration Date Visits Requ ested Visits Authorized [id number] Closed 1 1 Encounter Details Date Type Department Care Team Description 03/10/2017 Office Visit [facility]NT Dilip Turpin, Left ear pain (Primary Dx); - Jeffery LOPEZ TMJ dysfunction [address] [place] [address] [address] [place] [address] Social History Tobacco Use Types Packs/Day Years Used Date Smoking Tobacco: Former Cigarettes Pipe Smokeless Tobacco: Never Alcohol Use Standard Drinks/Week Comments Yes 0 (1 standard drink = 0.6 oz pure alcoho l) occ Sex Assigned at Date Recorded Not on file documented as of this encounter Last Filed Vital Signs Vital Sign Reading Time Taken Comments Blood Pressure 116/80 03/10/2017923 EST Pulse 85 03/10/2017923 EST Temperature - - Respiratory Rate - - Oxygen Saturation - - Inhaled Oxygen Concentration - - Weight 97.5 kg (215 lb) 03/10/2017923 EST Height 177.8 cm (5' 10) 03/10/2017923 EST Body Mass Index 30.85 03/10/2017923 EST documented in this encounter Progress Notes Dilip Turpin MD - 03/10/2017909 EST This is a consult from Noman Ramírez for evaluation of ear pain. HISTORY OF THE PRESENT ILLNESS: This is a 56-year-old male with a long history of intermittent left ear pain, mostly over the past year. His symptoms are of mild to moderate severity, intermittent, worse over the past month, treated with antibiotics without significant improvement. He has a history ofbruxism. His symptoms are worse in the morning. No drainage, tinnitus, vertigo, or other ear symptoms. PAST MEDICAL HISTORY: Significant for environmental allergies and heartburn. Previous surgeries include tonsillectomy. FAMILY HISTORY: Is significant for asthma. SOCIAL HISTORY: The patient is a former smoker. He has no known drug allergies. Current medications include ibuprofen, levothyroxine, and Prilosec. REVIEW OF SYSTEMS: Significant for shortness of breath, wheezing, thyroid problems, light sensitivity, muscle, joint, and back pain, ear pain, heartburn, reflux, otherwise negative for a complete review of all systems. PHYSICAL EXAM: General: Well-developed, well-nourished, alert, oriented, and cooperative adult male in no acute distress. Normal voice. Vital signs: Height 70 inches. Weight 215, blood pressure 116/80,pulse 85. Pain level of 2. The face is normal without lesions. No tenderness to palpation over the sinuses. Salivary glands are normal. Facial strength is symmetric. Eye exam is normal. Ears: External ears are normal. Canals are clear. The tympanic membranes are normal. There is some tympanosclerosis inferiorly. Normal binocular otomicroscopy. Hearing is grossly intact. Nose: Nasal dorsum is midline,the airway is patent. Oral cavity: Lips, tongue, floor of mouth, and buccal mucosa are within normal limits. There is left TMJ tenderness to palpation but no clicking or popping. Neck: No pathologic lymphadenopathy. Trachea is midline. Thyroid is normal. Chest is clear to auscultation. Heart: Regular rate and rhythm. 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 PLAN: TMJ instruction material was given to the patient and discussed in detail. The patient will see his dentist regarding his temporomandibular joint symptoms, consider referral to Dr cB Moseley in [place] if symptoms persist or worsen. documented in this encounter Plan of Treatment Not on filedocumented as of this encounter Visit Diagnoses Diagnosis Left ear pain - Primary Otalgia, unspecified TMJ dysfunction Temporomandibular joint disorders, unspe cified documented in this encounter Discontinued Medications Medication Sig Discontinue Reason Start Date End Date Cephalexin 500 mg tablet Take 500 mg by Therapy completed 03/10/2017 mouth every 6 hours. documented as of this encounter Historical Medications This list may reflect changes made after this encounter. Medication Sig Dispensed Refills Start Date End Date LEVOTHYROXINE SODIUM Take by mouth 0 (LEVOTHYROXINE ORAL) daily. added in this encounter Care Teams Hand Stone Polisher Relationship Specialty Start Date End Date Bc Alvarado FNP PCP - General 03/21/13 04/28/[address] [place] [id number] documented as of this encounter
--- OUTSIDE RECORDS SUMMARY | 2022-01-27 16:01 | XMS_ITS | Encounter Summary ---
:1960 Author Organization [facility] Address [address] [place] [address] Care Team Providers Name Role Phone Brooks Duarte MD Primary Care Provider [phone] Reason for Referral Consult (See Order Priority) - Denied Specialty Diagnoses / Procedures Referred By Contact Refer red To Contact Hematology and Oncology Diagnoses IVC thrombosis (HCC-CMS) (HCC) DVT, lower extremity, proximal, acute, bilateral (HCC-CMS) (HCC) Chuck Valenzuela MD [facility] Adult Hem Onc [facility] [address] [place] [address] [address] [place], [place] [id number] [place] [address] Phone: [phone] Referral ID Status Reason Start Date Expiration Date Visits V isits Requested Authorized [id number] Denied Specialty 02/22/2021 1 0 Services Required Question Answer Reason for Request: IVC and bilateral iliac DVT, abnl IVC anatomy. Reason for Visit Reason Comments Leg Swelling Pt reports BLE leg swelling in calves and thighs starting last night, worsening today making it di fficult to ambulate. Also reporting low back pain for a couple of weeks a nd N/T to left arm intermittently for 10 years but worse now. Pt is n ot vaccinated. Back Pain Auth/Cert Specialty Diagnoses / Procedures Referred By Contact Refer red To Contact Diagnoses IVC thrombosis (HCC-CMS) (HCC) DVT, lower extremity, proximal, acute, bilateral (HCC-CMS) (HCC) Referral ID Status Reason Start Date Expiration Date Visits Requ ested Visits Authorized [id number] 02/21/2021 02/24/2021 1 1 Encounter Details Date Type Department Care Team Description 02/21/2021 - Hospital Encounter [facility] Sa jurgen Cadet MD [address] [place] [address] [phone] IVC thrombosis ([facility]) ([facility]) (Primary Dx); 02/24/2021 - [facility] Medical / Rosa Avila MBBS [address] [place] [address] [phone] DVT, lower extremity, proximal, acute, b ilateral (HCC-CMS) ([facility]) Surgical Department Amelia Wilkerson MD [address] [place] [address] [phone] [place] [address] Chuck Valenzuela MD M[facility] [address] [place] [address] [phone] [place] [address] Yossi Rouse MD [address] [place] [address] [phone] Social History Tobacco Use Types Packs/Day Years [...] Sign Reading Time Taken Comments Blood Pressure 144/82 02/24/2021 0515 EST Pulse 86 02/21/2021 1641 EST Temperature 36.6 ??C (97.9 ??F) 02/24/2021 0515 EST Respiratory Rate 15 02/24/2021 0515 EST Oxygen Saturation 96% 02/24/2021 0515 EST Inhaled Oxygen Concentration - - Weight 98.2 kg (216 lb 9 oz) 02/24/2021 0515 EST Height 174 cm (5' 8.5) 02/23/2021 0700 EST Body Mass Index 32.45 02/23/2021 0700 EST documented in this encounter Functional Status Functional Status Response Date of Assessment Are you deaf or do you have serious difficulty hearing? No 02/24/2021 Are you blind or do you have [...] or older) documented as of this encounter Discharge Summaries Yossi Rouse MD - 02/24/2021 1148 EST Date of Discharge: 02/24/21 11:48 Condition at Discharge: Stable Primary diagnosis: DVT Consults: [facility] vascular surgery Procedures: None HPI/ Hospital Course: This is a 60-year-old man with hypothyroidism who presented to the emergency department on February 21 with lower back pain and bilateral leg pain for about 2 weeks. He started to notice leg swelling and increased pain with ambulation so he decided to come to the ED. He was noted on arrival to have an elevated D-dimer. There was high suspicion for thromboembolic event given his lower extremity swelling. CT scan was ordered of the abdomen and pelvis which showed extensive clot involving bilateral iliac veins. Of note, the patient did not have any shortness of breath nor hypoxia. Patient was started on IV heparin and admitted to the hospitalist service for further management. Patient remained hemodynamically stable on the floor. [facility] vascular surgery was consulted who did not feel that the patient required thrombectomy. They recommended heparin drip for at least 48 hours. After 48 hours, patient was transitioned to Eliquis 10 mg twice daily. He tolerated this well. He noted improvement in the pain of his lower extremities. Etiology of the clot was not quite clear. Patient did not have any prolonged immobility nor was there is suspicion of underlying cancer. Of note, he is not vaccinated against COVID-19 and there is somesuspicion he could have had a recent infection that caused a hypercoagulable state. As the DVT appeared to be unprovoked, we recommended outpatient referral to hematology for further investigation intopossible hypercoagulable states. He was noted on imaging to have abnormal vascular anatomy of the IVC which could also have contributed to thrombosis. Patient was discharged home in stable medical condition on February 24. He was instructed to reduce his Eliquis dose to 5 mg in 6 days. Labs: Hemoglobin 11.3 Radiology: CT abdomen/pelvis: FINDINGS: Lungs: The visualized lung bases appear within normal limits. Heart: The visualized portions of the heart and pericardium appear unremarkable. Diaphragm: There is a small to moderate hiatal hernia. Liver: There is mild fatty infiltration of the liver. Gallbladder and bile ducts: The gallbladder is unremarkable. Pancreas: The pancreas is within normal limits. Spleen: The spleen is unremarkable. Adrenal glands: The adrenal glands are unremarkable. Kidneys and ureters: There are multiple bilateral simple parapelvic renal cysts. Stomach and bowel: There are feces within the colon which are suspicious for constipation. Appendix: The appendix is visualized and is within normal limits. Intraperitoneal space: Unremarkable. No free air. No significant fluid collection. Vasculature: On the left side there is a large clot within the left external iliac vein. There is a large clot within the left internal iliac vein. ??There is extension of the clot into the left common iliac vein. On the right side there is a suspected clot within the right femoral vein extending into the right common femoral vein. There is a clot in the right common iliac vein. The common right and left iliac vein clots extend into the IVC which is thrombosed. 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 The duplicated left-sided IVC ??is clotted and goes into the lumbar veins on the left side. The IVC superior to the narrowing does not have a clot and is opacified by the renal veins, right lumbar vein and inferior mesenteric vein. The IVC in the intrahepatic region is normally opacified going into the heart. There are collateral mesenteric veins seen in the anterior abdomen on the axial images series 201 images 45 to 64. There are dilated paralumbar veins at the level of the chest feeding a large kolton azygous and azygous vein. There is inflammation surrounding the left external iliac vein. Lymph nodes: ??No enlarged lymph nodes. Urinary bladder: The urinary bladder is within normal limits. Reproductive: The prostate and seminal vesicles are within normal limits. Bones/joints: There are degenerative changes of the thoracic spine. Soft tissues: Unremarkable. Impression: ?? 1. Clots as described above. Please see discussion above. 2. Small to moderate hiatal hernia. 3. Suspect constipation as above. 4. Mild fatty infiltration of the liver. 5. Multiple bilateral simple parapelvic renal cysts. Microbiology: SARS-CoV-2 negative Medications: Medication List START taking these medications apixaban 5 mg tablet Commonly known as: ELIQUIS Take 2 Tablets by mouth 2 times daily. Take 2 tablets (10 mg) twice daily for 6 days then drop down to 5mg (one tablet) twice daily on March 02. CONTINUE taking these medications LEVOTHYROXINE ORAL omeprazole 20 mg capsule Commonly known as: PRILOSEC STOP taking these medications ibuprofen 200 mg tablet Commonly known as: MOTRIN Where to Get Your Medications Information about where to get these medications is not yet available Ask your nurse or doctor about these medications ?? apixaban 5 mg tablet Follow up: With hematology to be scheduled With primary care provider in 2-3 weeks Time Spent: Over 30 minutes of time were spent on this patient's discharge. Time included physical exam, patienteducation, review and interpretation of labs and imaging data, discussion with specialists, and coordination of follow-up care. Discharge instructions were given to the patient at the time of discharge. documented in this encounter Discharge Instructions AttachmentsThe following attachments cannot be sent through Care Everywhere.DVT (Deep Vein Thrombosis) ([place])DVT (Deep Vein Thrombosis): General Info ([place])documented in this encounter Medications at Time of Discharge [...] capsule daily. documented as of this encounter Ordered Prescriptions Prescription Sig Dispensed Refills Start Date End Date apixaban (ELIQUIS) 5 mg Take 2 Tablets by 60 Tablet 2 02/24 tablet mouth 2 times daily. Take 2 tablets (10 mg) twice daily for 6 days then drop down to 5mg (one tablet) twice daily on March 02. apixaban 5 mg (74 tabs) Take 10 mg by mouth 74 Tablet 0 02/24/2021 tablets,dose pack 2 times daily for 7 days, THEN 5 mg 2 times daily for 21 days. documented in this encounter Discharge Disposition Disposition Code Departure Means Destination Home or Self Correction documented in this encounter Progress Notes Cyn Galvan - 02/24/2021 1008 EST Pt is for dc home today. There are no skilled needs identified for home health and family already picked up his Apixiban at [facility]. Pt will be transported by family. Mamie Peralta RN - 02/24/2021 0438 EST Pt a+ox3, admitted w/ IVC thrombosis. Heparin drip stopped 30min after 1st dose of PO Eliquis given per MD note. C/o 4-5/10 headache, no effect w/ PRN tylenol and Fioracet. MD aware, ordered PRN oxy, given w/ good effect, pt was able to fall asleep afterwards. Compression stockings and DANO wraps to BLE, removed for overnight. Plan to d/c home 02/24. Independent in room. L ANABELLE CDI, SL. [facility], thrombectomy not required. Bed in lowest position, call light in reach, hourly rounding, resting comfortably at this time. Jaz Stuart RN - 02/23/2021 1800 EST Pt admitting dx IVC thrombosis. Pt AAOX3 - calm and accepting of care. Administered medications and monitored tele per order. Pt continued on IV heparin - tolerated well. Pt with continued mild FRIAS/BLE soreness throughout shift in - x1 PRN Tylenol administered with positive effect. MONIQUE hose and DANO bandages applied to BLE. Pt independent for ambulation in room. Rings appropriately for assistance when needed. Rounding for safety. Yossi Rouse MD - 02/23/2021 1134 EST Inpatient Internal Medicine Progress Note Patient Name: Amilcar Waldron Room: [address] [place] [address] Date of Service: 02/23/21 11:34 CC: Leg pain 24 Hour Events: No major events overnight. Patient continues on a heparin drip. Subjective: Patient is feeling well this morning. He denies any new complaints while at rest. He is still havingsome pain in his legs with ambulation. He is still having swelling of his legs but this is being helped by MONIQUE stockings. Objective/ Physical Exam: BP 136/74 (BP Cuff Location: Right arm, BP Patient Position: Semi fowlers) Pulse 86 Temp 36.9 ??C (98.5 ??F) (Oral) Resp 20 Ht 174 cm (68.5) Wt 98.7 kg (217 lb 8 oz) SpO2 94% BMI 32.59 kg/m?? General: Alert, well-appearing male in no obvious distress. Pleasant HEENT: white sclerae. Cardiovascular: Regular rate and rhythm; no murmurs Respiratory: Clear breath sounds. Does not appear dyspneic. Breathing room air oxygen Gastrointestinal: Abdomen is soft, nontender, nondistended. No hepatomegaly. No splenomegaly Musculoskeletal: No effusions Extremities: Mild bilateral lower extremity edema Neurological: Alert and oriented ??3. No slurred speech Genitourinary: No Acuña catheter noted Psych: Appropriate affect. appears calm Skin: intact. no rashes Labs: No new labs this morning Assessment/ Clinical Impression: This is a 60-year-old male with hypothyroidism, GERD. He presented February 21 with swelling and pain in the lower extremities. Imaging revealed bilateral iliac vein DVTs. He is stable currently on a heparin drip. Plan: Bilateral lower extremity and IVC DVTs- -Case was discussed with [facility] vascular surgery who recommended against thrombectomy and continuing heparin drip for 48 hours. -Thrombosis may be related to abnormal vasculature. -Plan to begin apixaban this evening. Recommend discontinuing the heparin drip 30 minutes after the first dose. -I recommended follow-up with hematology as an outpatient, nonurgent. -Thigh-high MONIQUE stockings as needed for swelling Hypothyroidism- -Continue Synthroid CODE STATUS- -Full code FEN- -Regular diet Prophylaxis: Patient is fully anticoagulated Disposition: Anticipate discharge home tomorrow on apixaban Cyn Galvan - 02/23/2021 1048 EST Pt will be started on Eliquis and plan is to dc home tomorrow without services. Pt's will transport. Jaz Stuart RN - 02/22/2021 1442 EST Pt admitting dx IVC. Pt AAOX3 - calm and accepting of care. Administered medications and monitored tele per order. Pt continued on IV heparin - tolerated well. Pt with mild FRIAS in early afternoon - x1 PRN Tylenol administered. Pt independent for ambulation in room. Rings appropriately for assistance when needed. Rounding for safety. Chuck Valenzuela MD MPH - 02/22/2021 1409 EST Medicine Progress Note Service Date: 02/22/2021 Admit Date: 02/21/2021 16:44 Hospital Day: 1 PCP: Brooks Torrez Chivo is a 60 y.o. male with a chief complaint of Leg Swelling (Pt reports BLE leg swelling in calves and thighs starting last night, worsening today making it difficult to ambulate. Also reporting low back pain for a couple of weeks and N/T to left arm intermittently for 10 years but worse now. Pt is not vaccinated. ) and Back Pain now admitted with a diagnosis of IVC thrombosis ([facility]) ([facility]). 24 Hour Events: ?? Admitted on heparin drip Subjective/Objective Subjective Patient reports no significant back pain today. Denies chest pain or shortness of breath. Discussionwith patient and his son about completing 48 hours of heparin drip-this would be later around 9:00 Thursday evening. Patient desires to try to return home Review of Systems: As documented in subjective and HPI. Objective Vital Signs Temp: [36.7 ??C (98 ??F)-37.6 ??C (99.6 ??F)] ; Heart Rate: [80 BPM-103 BPM] , Pulse: [86] ; BP: (95-135)/(64-97) ; Resp: [12-27] ; SpO2: [95 %-100 %] I&O I&O By Type - 3 Shifts Including Current In: 1290 [P.O.:1080; I.V.:210] Out: - 97.4 kg (214 lb 12.8 oz) Physical Exam General: Well-appearing male laying in hospital bed in no acute distress on room air. Eyes: There is no scleral icterus. H EENT Normocephalic, atraumatic. Lungs: Clear to auscultation bilaterally, normal work of breathing. Cardiac: Regular rate and rhythm, no appreciable murmur. Abdomen: Soft, nontender, nondistended. Extremities: There is prominence of the superficial veins of bilateral lower extremities. There is trace peripheral edema bilateral lower extremities. Neuro: Alert and oriented x3. Psych: Appropriate mood and affect. Meds: Current Facility-Administered Medications: ??? acetaminophen (TYLENOL) tablet 650 mg, 650 mg, Q6H PRN ??? heparin in D5W 25,000 unit/250 mL(100 unit/mL) infusion, 18 Units/kg/hr (Adjusted), CONTINUOUS ??? heparin injection 6,550 Units, 80 Units/kg (Adjusted), PRN OR heparin injection 3,300 Units,40 Units/kg (Adjusted), PRN ??? levothyroxine (SYNTHROID) tablet 88 mcg, 88 mcg, DAILY BEFORE BREAKFAST ??? lidocaine 1 % injection 2 mg, 2 mg, PRN ??? pantoprazole (PROTONIX) tablet 40 mg, 40 mg, DAILY BEFORE BREAKFAST Allergies: Patient has no known allergies. Labs: Results for orders placed or performed during the hospital encounter of 02/21/21 (from the past 24 hour(s)) COMPLETE BLOOD COUNT AND DIFFERENTIAL Result Value Ref Range WBC 10.37 4.00 - 10.40 K/cmm RBC 3.94 (L) 4.36 - 5.78 M/cmm Hemoglobin 11.7 (L) 13.8 - 17.3 gm/dL HCT 35.5 (L) 39.5 - 50.2 % MCV 90 81 - 95 fl MCH 29.7 27.6 - 33.0 pg MCHC 33.0 32.8 - 36.4 gm/dL RDW-CV 13.2 <14.2 % RDW-SD 43.8 <46.0 fl PLT 300 141 - 377 K/cmm MPV 9.2 (L) 9.5 - 12.7 fl Neutrophils 70.8 % Lymphocytes 15.9 % Monocytes 10.4 % Eosinophils 1.9 % Basophils 0.5 % Immature Grans 0.5 % Absolute Neutrophils 7.34 2.20 - 8.85 K/cmm Absolute Lymphocytes 1.65 1.09 - 3.30 K/cmm Absolute Monocytes 1.08 (H) 0.10 - 0.80 K/cmm Absolute Eosinophils 0.20 0.03 - 0.61 K/cmm Absolute Basophils 0.05 0.01 - 0.11 K/cmm Absolute Immature Grans 0.05 0.00 - 0.06 K/cmm Type of Differential: Auto COMPREHENSIVE METABOLIC PANEL (CMP) Result Value Ref Range Sodium 137 136 - 145 mmol/L Potassium 4.2 3.5 - 5.0 mmol/L Chloride 100 96 - 110 mmol/L CO2 Total 29 22 - 32 mmol/L Glucose 93 70 - 100 mg/dL BUN 18 10 - 26 mg/dL Creatinine 0.61 (L) 0.66 - 1.25 mg/dL eGFR 108 >60 mL/min/1.73m2 Total Protein 7.2 6.3 - 8.2 g/dL Albumin 4.2 3.4 - 4.9 g/dL Alkaline Phosphatase 93 38 - 126 U/L AST 31 15 - 46 U/L ALT 21 <50 U/L Bilirubin, Total 0.6 <1.4 mg/dL Calcium 8.7 8.5 - 10.5 mg/dL Albumin/Globulin Ratio 1.4 1.0 - 2.5 Anion Gap 8 8 - 16 CK Result Value Ref Range CK 144 <=250 U/L NT PRO BNP Result Value Ref Range NT-pro BNP <12 <125 pg/mL MAGNESIUM Result Value Ref Range Magnesium 1.9 1.7 - 2.8 mg/dL UA WITH REFLEX SEDIMENT (CULTURE IF POS) Result Value Ref Range Color UA Yellow Colorless to Dark Yellow Clarity UA Clear Clear Glucose UA Negative Negative Bilirubin UA Negative Negative Ketones UA Negative Negative Specific [place], Urine 1.020 1.001 - 1.035 Blood UA Negative Negative pH, UA 5.5 4.6 - 8.0 Protein UA Negative Negative Urobilinogen UA 0.2 0.2 , 1.0, Normal mg/dL Nitrite UA Negative Negative Leukocyte Esterase UA Negative Negative D-DIMER Result Value Ref Range D-Dimer 1,888 (H) <230 ng/mL DDU INFLUENZA A AND B,RSV PCR Specimen: Nasopharynx; Swab Result Value Ref Range FLU A RNA Result (FLARES) Negative Negative FLU B RNA Result (FLBRES) Negative Negative RSV RNA Result (RSVRES) Negative Negative COVID-19 TESTING ([facility], [facility], ) Specimen: Nasopharynx; Swab Result Value Ref Range Performing Lab [facility] Hospital Lab COVID-19 PMC [facility] (TESTING ONLY) Specimen: Nasopharynx; Swab Result Value Ref Range COVID-19 rt-PCR Result Negative Negative COMPREHENSIVE METABOLIC PANEL (CMP) Result Value Ref Range Sodium 138 136 - 145 mmol/L Potassium 3.9 3.5 - 5.0 mmol/L Chloride 101 96 - 110 mmol/L CO2 Total 30 22 - 32 mmol/L Glucose 94 70 - 100 mg/dL BUN 17 10 - 26 mg/dL Creatinine 0.90 0.66 - 1.25 mg/dL eGFR 92 >60 mL/min/1.73m2 Total Protein 6.7 6.3 - 8.2 g/dL Albumin 3.9 3.4 - 4.9 g/dL Alkaline Phosphatase 77 38 - 126 U/L AST 29 15 - 46 U/L ALT 20 <50 U/L Bilirubin, Total 0.6 <1.4 mg/dL Calcium 8.8 8.5 - 10.5 mg/dL Albumin/Globulin Ratio 1.4 1.0 - 2.5 Anion Gap 7 (L) 8 - 16 COMPLETE BLOOD COUNT AND DIFFERENTIAL Result Value Ref Range WBC 9.72 4.00 - 10.40 K/cmm RBC 3.83 (L) 4.36 - 5.78 M/cmm Hemoglobin 11.3 (L) 13.8 - 17.3 gm/dL HCT 35.5 (L) 39.5 - 50.2 % MCV 93 81 - 95 fl MCH 29.5 27.6 - 33.0 pg MCHC 31.8 (L) 32.8 - 36.4 gm/dL RDW-CV 13.5 <14.2 % RDW-SD 45.8 <46.0 fl PLT 266 141 - 377 K/cmm MPV 9.3 (L) 9.5 - 12.7 fl Neutrophils 63.8 % Lymphocytes 22.4 % Monocytes 11.0 % Eosinophils 1.9 % Basophils 0.6 % Immature Grans 0.3 % Absolute Neutrophils 6.20 2.20 - 8.85 K/cmm Absolute Lymphocytes 2.18 1.09 - 3.30 K/cmm Absolute Monocytes 1.07 (H) 0.10 - 0.80 K/cmm Absolute Eosinophils 0.18 0.03 - 0.61 K/cmm Absolute Basophils 0.06 0.01 - 0.11 K/cmm Absolute Immature Grans 0.03 0.00 - 0.06 K/cmm Type of Differential: Auto HEPARIN LEVEL - UNFRACTIONATED HEPARIN Result Value Ref Range Heparin Level-UFH 0.70 Therapeutic Range: 0.30 - 0.70 IU/mL CBC: Recent Labs 02/21/21 1751 02/22/21 0312 WBC 10.37 9.72 HGB 11.7* 11.3* HCT 35.5* 35.5* PLT 300 266 INR: No results for input(s): INR in the last 72 hours. BMP: Recent Labs 02/21/21 1751 02/22/21 0312 NA 137 138 K 4.2 3.9 CL 100 101 CO2 29 30 BUN 18 17 CREATININE 0.61* 0.90 Lytes: Recent Labs 02/21/21 1751 02/22/21 0312 CALCIUM 8.7 8.8 MG 1.9 -- LFTs: Recent Labs 02/21/21 1751 02/22/21 0312 ALT 21 20 AST 31 29 ALKPHOS 93 77 TBIL 0.6 0.6 LABALBU 4.2 3.9 Pending labs: Test results still pending from this admission None Micro: Recent Results (from the past 24 hour(s)) INFLUENZA A AND B,RSV PCR Collection Time: 02/21/21 22:04 Specimen: Nasopharynx; Swab Result Value Ref Range FLU A RNA Result (FLARES) Negative Negative FLU B RNA Result (FLBRES) Negative Negative RSV RNA Result (RSVRES) Negative Negative COVID-19 TESTING ([facility], [facility], ) Collection Time: 02/21/21 22:04 Specimen: Nasopharynx; Swab Result Value Ref Range Performing Lab [facility] Hospital Lab COVID-19 PMC [facility] (TESTING ONLY) Collection Time: 02/21/21 22:04 Specimen: Nasopharynx; Swab Result Value Ref Range COVID-19 rt-PCR Result Negative Negative I reviewed the patient's laboratory studies for today which are notable for: Hemoglobin 11.3 Platelet count 266 Recent Imaging: CT ABDOMEN PELVIS W CONTRAST Result Date: 02/21/2021 PROCEDURE INFORMATION: Exam: CT Abdomen And Pelvis With Contrast Exam date and time: 02/21/2021 8:20PM Age: 60 years old Clinical indication: Other: Back pain; Prior surgery; Surgery type: Inguinal hernia, umbilical hernia; Additional info: Sudden onset bilateral leg swelling, concern for proximal clot, elevated d dimer TECHNIQUE: Imaging protocol: Computed tomography of the abdomen and pelvis with contrast. Radiation optimization: All CT scans at this facility use at least one of these dose optimization techniques: automated exposure control; mA and/or kV adjustment per patient size (includes targeted exams where dose is matched to clinical indication); or iterative reconstruction. Contrast material: OMNI 350; Contrast volume: 100 ml; Contrast route: INTRAVENOUS (IV); COMPARISON: No relevant prior studies available. FINDINGS: Lungs: The visualized lung bases appear within normal limits. Heart:The visualized portions of the heart and pericardium appear unremarkable. Diaphragm: There is a small to moderate hiatal hernia. Liver: There is mild fatty infiltration of the liver. Gallbladder and bile ducts: The gallbladder is unremarkable. Pancreas: The pancreas is within normal limits. Spleen: The spleen is unremarkable. Adrenal glands: The adrenal glands are unremarkable. Kidneys and ureters: There are multiple bilateral simple parapelvic renal cysts. Stomach and bowel: There are feces within the colon which are suspicious for constipation. Appendix: The appendix is visualized and is within normal limits. Intraperitoneal space: Unremarkable. No free air. No significant fluid collection. Vasculature: On the left side there is a large clot within the left external iliac vein. There is a largeclot within the left internal iliac vein. There is extension of the clot into the left common iliac vein. On the right side there is a suspected clot within the right femoral vein extending into the right common femoral vein. There is a clot in the right common iliac vein. The common right and left iliac vein clots extend into the IVC which is thrombosed. 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 The duplicated left-sided IVC is clotted and goes into the lumbar veins on the left side. The IVC superior to the narrowing does not have a clot and is opacified by the renal veins, right lumbar vein and inferior mesenteric vein. The IVC in the intrahepatic region is normally opacified going into the heart. There are collateral mesenteric veins seen in the anterior abdomen on the axial images series 201 images 45 to 64. There are dilated paralumbar veins at the level of the chest feeding a large kolton azygous and azygous vein. There is inflammation surrounding the left external iliac vein. Lymph nodes: No enlarged lymph nodes. Urinary bladder: The urinarybladder is within normal limits. Reproductive: The prostate and seminal vesicles are within normal limits. Bones/joints: There are degenerative changes of the thoracic spine. Soft tissues: Unremarkable. 1. Clots as described above. Please see discussion above. 2. Small to moderate hiatal hernia. 3. Suspect constipation as above. 4. Mild fatty infiltration of the liver. 5. Multiple bilateral simple parapelvic renal cysts. THIS REPORT CONTAINS FINDINGS THAT MAY BE CRITICAL TO PATIENT CARE. The findingswere verbally communicated via telephone conference with PAM Eckert at 9:38 PM EST on 02/21/2021. The findings were acknowledged and understood. COMMENTS: Consistent with the [employer]'s Incidental Findings Committee white paper (J Am Jessica Radiol 2018): Any incidental renallesion less than 1 cm or classified as too small to characterize, or any incidental cystic renal lesion characterized as simple-appearing, is likely benign. No follow-up imaging is recommended for these lesions per consensus recommendations based on imaging criteria. THIS DOCUMENT HAS BEEN ELECTRONICALLY SIGNED BY NASREEN SIMON MD FOR ANY QUESTIONS OR CONCERNS REGARDING THIS REPORT PLEASE CALL [facility] AT CT OUTSIDE IMAGES BODY Result Date: 02/22/2021 This is a non-reportable exam. I independently reviewed the CT images. Assessment/Plan Assessment Amilcar Waldron is a 60 y.o. male with history of hypothyroidism and GERD who presented here withbilateral lower extremity pain and swelling. 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 Per vascular surgery at [facility], no indication for thrombectomy or catheter directed thrombolysis currently. However, the patient develops peripheral circulation issues, this may be reconsidered. 48 hours of heparin drip is currently recommended. Plan DVT of bilateral iliac veins, inferior vena cava -Unprovoked, may be related to abnormal vasculature. -No urgent need for thrombectomy/procedure. -IV heparin drip for 48 hours -Monitor telemetry -Plan to transition to apixaban tomorrow evening on discontinuation of heparin drip. -Hematology follow-up on discharge. Hypothyroidism -Continue levothyroxine GERD -Continue PPI FEN: P.o. intake Diet: DIET REGULAR VTE Prophylaxis: Discharge Plan: Home or self care anticipated CODE STATUS: Full Code I spent more than 35 minutes caring for this patient today including >50% of time spent in counseling and coordination of care. Time spent in review of the medical chart, review of labs, review of imaging, discharge planning, disease counseling and treatment planning with the patient and patient's family . Chuck Valenzuela MD MPH, 02/22/2021 14:09 Maggie Moreno - 02/22/2021 1327 EST Thursday Note: Pt will is a possible discharge on Thursday evening as he continues on IV Heparin drip documented in this encounter H&P Notes Rosa Avila MBBS - 02/21/2021 2221 EST Hospital Medicine Admission History & Physical Service Date: 02/21/2021 Admit Date: 02/21/21 Primary Care Provider: Brooks Duarte Chief Complaint: Bilateral leg pain and swelling HPI Amilcar Waldron is a 60 y.o. male with hypothyroidism, GERD presented to the emergency departmentwith low back pain and bilateral leg pain since almost 2 weeks. Patient reports exerting himself by lifting a log splitter into back of truck with a friend after which he developed lower back pain. Described as aching sensation in buttocks and legs, aggravated withwalking and going up a flight of stairs. He thought it was muscle sprain and continue to monitor himself at home. Last night, he noticed that his legs started swelling. Today, he had significant difficulty with ambulation and decided to seek medical attention. No recent surgeries, travel. No prior history of blood clots or bleeding disorders. Denies chest pain, shortness of breath, cough, fever/chills. In emergency department, patient was hemodynamically stable. He was noted to have a significantly elevated D-dimer and given bilateral lower extremity swelling CT abdomen/pelvis was obtained to rule out proximal DVT which showed extensive clot involving bilateral iliac veins. He was started on IV heparin drip. Review of Systems A complete 10 point ROS was performed and pertinent positive and negative findings listed in HPI, otherwise negative. Past Medical History: Diagnosis Date ??? Environmental allergies ??? Heartburn ??? Hiatal hernia ??? Hypothyroid Past Surgical History: Procedure Laterality Date ??? TONSILLECTOMY Social History Tobacco Use ??? Smoking status: Former Smoker Types: Cigarettes, Pipe ??? Smokeless tobacco: Never Used Substance Use Topics ??? Alcohol use: Yes Alcohol/week: 2.0 standard drinks Types: 2 Shots of liquor per week Comment: pt reports having 2-3 drinks per week Family History Problem Relation Age of Onset ??? Asthma Daughter Medications Prior to Admission Medication Sig ??? ibuprofen (MOTRIN) 200 mg tablet Take 200 mg by mouth every 6 hours. ??? LEVOTHYROXINE SODIUM (LEVOTHYROXINE ORAL) Take by mouth. ??? omeprazole (PRILOSEC) 20 mg capsule Take 20 mg by mouth daily. No Known Allergies Objective Vitals Temp: [36.8 ??C (98.3 ??F)] , Heart Rate: [80 BPM-103 BPM] , Pulse: [86] , Resp: [12-27] , BP: (118-135)/(80-97) , SpO2: [95 %-100 %] , Numeric Pain Level (Scale 1-10): 0 Weight: Weight : 100.5 kg (221 lb 9 oz) Body mass index is 33.2 kg/m??. Physical Exam General: Not in acute distress. Well-appearing. Head: Atraumatic, normocephalic. Eyes: Pupils equal and reactive to light. Extraocular movements intact. Vision grossly normal. ENT: Hearing grossly normal. No external nasal lesions identified on gross exam. No pharyngeal erythema or exudates. Neck: Supple, no thyromegaly, no lymphadenopathy. Lungs: Bilateral symmetrical expansion of thoracic cavity noted. Clear to auscultation on bilateral lung narvaez. No wheezing/rales/rhonchi. Heart: S1-S2 heard. No murmurs, rubs or gallops heard. Abdomen: Positive bowel sounds all 4 quadrants. Nontender, nondistended. No organomegaly on palpation. Extremities: 3+ pitting edema BLE Musculoskeletal: Strength 5/5 and equal in all 4 extremities. No joint swelling or deformities noted. Neurological: Alert and oriented person, place and time. Cranial nerves II to VII grossly intact. Nosensory deficits noted. No cerebellar signs noted. Skin: Warm and intact with no rashes. Psychiatric: Appropriate mood and affect. Labs I have personally reviewed Recent Labs 02/21/21 1751 WBC 10.37 RBC 3.94* HGB 11.7* HCT 35.5* MCV 90 MCH 29.7 MCHC 33.0 PLT 300 NEUTROABS 7.34 Recent Labs 02/21/21 1751 NA 137 K 4.2 CL 100 CO2 29 BUN 18 CREATININE 0.61* CALCIUM 8.7 MG 1.9 LABALBU 4.2 Recent Labs 02/21/21 1751 TBIL 0.6 ALKPHOS 93 AST 31 ALT 21 Recent Labs 12/23/21 1812 COLOR Yellow CLARITYU Clear GLUCOSEU Negative BILIRUBINUR Negative KETONES Negative LABSPEC 1.020 PHUR 5.5 PROTEINUA Negative UROBILINOGEN 0.2 NITRITE Negative LEUKESTER Negative Imaging Reviewed CT ABDOMEN PELVIS W CONTRAST Result Date: 02/21/2021 PROCEDURE INFORMATION: Exam: CT Abdomen And Pelvis With Contrast Exam date and time: 02/21/2021 8:20PM Age: 60 years old Clinical indication: Other: Back pain; Prior surgery; Surgery type: Inguinal hernia, umbilical hernia; Additional info: Sudden onset bilateral leg swelling, concern for proximal clot, elevated d dimer TECHNIQUE: Imaging protocol: Computed tomography of the abdomen and pelvis with contrast. Radiation optimization: All CT scans at this facility use at least one of these dose optimization techniques: automated exposure control; mA and/or kV adjustment per patient size (includes targeted exams where dose is matched to clinical indication); or iterative reconstruction. Contrast material: OMNI 350; Contrast volume: 100 ml; Contrast route: INTRAVENOUS (IV); COMPARISON: No relevant prior studies available. FINDINGS: Lungs: The visualized lung bases appear within normal limits. Heart:The visualized portions of the heart and pericardium appear unremarkable. Diaphragm: There is a small to moderate hiatal hernia. Liver: There is mild fatty infiltration of the liver. Gallbladder and bile ducts: The gallbladder is unremarkable. Pancreas: The pancreas is within normal limits. Spleen: The spleen is unremarkable. Adrenal glands: The adrenal glands are unremarkable. Kidneys and ureters: There are multiple bilateral simple parapelvic renal cysts. Stomach and bowel: There are feces within the colon which are suspicious for constipation. Appendix: The appendix is visualized and is within normal limits. Intraperitoneal space: Unremarkable. No free air. No significant fluid collection. Vasculature: On the left side there is a large clot within the left external iliac vein. There is a largeclot within the left internal iliac vein. There is extension of the clot into the left common iliac vein. On the right side there is a suspected clot within the right femoral vein extending into the right common femoral vein. There is a clot in the right common iliac vein. The common right and left iliac vein clots extend into the IVC which is thrombosed. 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 The duplicated left-sided IVC is clotted and goes into the lumbar veins on the left side. The IVC superior to the narrowing does not have a clot and is opacified by the renal veins, right lumbar vein and inferior mesenteric vein. The IVC in the intrahepatic region is normally opacified going into the heart. There are collateral mesenteric veins seen in the anterior abdomen on the axial images series 201 images 45 to 64. There are dilated paralumbar veins at the level of the chest feeding a large kolton azygous and azygous vein. There is inflammation surrounding the left external iliac vein. Lymph nodes: No enlarged lymph nodes. Urinary bladder: The urinarybladder is within normal limits. Reproductive: The prostate and seminal vesicles are within normal limits. Bones/joints: There are degenerative changes of the thoracic spine. Soft tissues: Unremarkable. 1. Clots as described above. Please see discussion above. 2. Small to moderate hiatal hernia. 3. Suspect constipation as above. 4. Mild fatty infiltration of the liver. 5. Multiple bilateral simple parapelvic renal cysts. THIS REPORT CONTAINS FINDINGS THAT MAY BE CRITICAL TO PATIENT CARE. The findingswere verbally communicated via telephone conference with PAM Eckert at 9:38 PM EST on 02/21/2021. The findings were acknowledged and understood. COMMENTS: Consistent with the [employer]'s Incidental Findings Committee white paper (J Am Jessica Radiol 2018): Any incidental renallesion less than 1 cm or classified as too small to characterize, or any incidental cystic renal lesion characterized as simple-appearing, is likely benign. No follow-up imaging is recommended for these lesions per consensus recommendations based on imaging criteria. Assessment Amilcar Waldron is a 60 y.o. male with hypothyroidism, GERD presented with bilateral lower extremity pain and swelling. He had elevated D-dimer and CT abdomen/pelvis shows bilateral iliac vein DVTs.Case was discussed with Dr. Mijares, vascular surgeon at [facility] who recommended IV heparin anticoagulation for 48 hours. If no improvement or has new circulation issues, would consider thrombectomy/catheter directed thrombolysis. Full admission for management with IV anticoagulation. Plan #Acute DVT of bilateral iliac veins: Unprovoked, could be related to abnormal anatomy of vasculature. See discussion above with vascular surgery, no indication for emergent thrombectomy/catheter directed thrombolysis at this time. Continue IV heparin GTT for 48 hours. Close vascular checks. If patient develops worsening pain or swelling, recontact RTC. Will need hematology follow- up at discharge. #Hypothyroidism: Continue levothyroxine 88 mcg daily #GERD: Continue PPI FEN: Regular diet CODE STATUS: Full VTE prophylaxis: On therapeutic anticoagulation Consults: Vascular surgery at [facility] Admission status Inpatient admission due to anticipated duration of hospitalization is two midnights or greater due to Needs IV heparin drip for atleast 48 hrs, may need vascular consult with close monitoring. RISHI Aguilera 02/21/2021 22:22 documented in this encounter ED Notes Trisha Norton RN - 02/21/2021 2304 EST Report given to JOSE ELIAS Flores. Noy Dow - 02/21/2021 1731 EST 12 Lead EKG Performed by Noy Dow and shown to Pam Cadet MD. Pam Cadet MD - 02/21/2021 1645 EST Emergency Department Visit Assessment and ED Course 60-year-old male with a history of hypothyroidism, GERD presents for evaluation of gradually worsening low back and bilateral leg discomfort associated with acute onset bilateral lower extremity edema that began last night. Differential for bilateral lower extremity edema includes renal failure, heart failure, hepatic failure, medication effect, proximal clot. Patient has no history of heart disease or heart failure. Bedside ultrasound shows normal ejection fraction, no pulmonary edema. Lab work returns with a renal failure, BNP is normal. No evidence of hepatic dysfunction. For this reason CT abdomen and pelvis ordered to evaluate for proximal clot. 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 On exam, he is without evidence of phlegmasia. He has intact distal pulses. The case was discussed with vascular surgery for consideration of possible thrombolysis or thrombectomy. Recommendations werefor therapeutic anticoagulation and observation. Did not feel that urgent or emergent surgical intervention was required at this time. Patient and family informed of CT findings and plan of care and are in agreement. Case discussed with hospitalist medicine who accepted the patient for admission. He remains hemodynamically stable here in the emergency department. Final diagnoses: IVC thrombosis (HCC-CMS) ([facility]) Disposition: Admitted Chief complaint: leg swelling, back pain HPI Amilcar Waldron is a 60 y.o. male who presents to the ED for the above. History was provided by: Patient. He states that for the last several days he has had pain in his lower back and the backs of both of his legs. He states that he was lifting a log splitter into the back of a truck with a friend and felt that he overexerted himself. Describes an aching sensation in his buttocks and legs especially worsening when going up a flight of stairs. Last night, he states that his legs started to swell quite suddenly. Today, he was having difficulty walking due to the swelling in his legs. He denies any chest pain or shortness of breath. No cough. No fevers. No shaking chills. No medication changes. He is a former tobacco smoker. No history of DVT or PE that he is aware of. He takes omeprazole, levothyroxine, ibuprofen 3 times a day. He denies any black or tarry stool. No blood in his stool. No history of chest pain-no history of heart problems that he is aware of. He is not on a diuretic. No history of venous stasis Patient's pertinent PMH, FH, SH were reviewed and edited as necessary. ROS A focused review of systems was performed. Pertinent positives and negatives as noted in HPI. Physical Exam BP 129/80 Pulse 86 Temp 36.8 ??C (98.3 ??F) (Oral) Resp 19 Ht 174 cm (68.5) Wt 100.5 kg (221 lb 9 oz) SpO2 95% BMI 33.20 kg/m?? A medical screening exam was performed. Physical Exam Vitals and nursing note reviewed. Constitutional: General: He is not in acute distress. Appearance: He is well-developed and well-nourished. He is not diaphoretic. Eyes: General: No scleral icterus. Right eye: No discharge. Left eye: No discharge. Conjunctiva/sclera: Conjunctivae normal. Cardiovascular: Rate and Rhythm: Normal rate. Pulmonary: Effort: Pulmonary effort is normal. No respiratory distress. Breath sounds: No stridor. Musculoskeletal: General: Normal range of motion. Cervical back: Normal range of motion and neck supple. Comments: Significant bilateral pitting lower extremity edema. 2+ DP pulses bilaterally. Distal lower extremities are warm and well perfused. Difficulty palpating PT pulses secondary to edema. In the region of the patient's lower back discomfort there is no appreciable overlying skin changes.No bruising noted. Skin: General: Skin is warm and dry. Neurological: Mental Status: He is alert and oriented to person, place, and time. Psychiatric: Mood and Affect: Mood and affect normal. Behavior: Behavior normal. Thought Content: Thought content normal. Judgment: Judgment normal. An EKG was obtained and independently interpreted. Sinus rhythm, normal axis, normal intervals. Incomplete R wave transition. No ST changes. No [id number] Imaging obtained was reviewed and independently interpreted. Laboratory results independently reviewed. Procedures Procedures documented in this encounter Miscellaneous Notes Plan of Care - Roxann Sullivan RN - 02/24/2021 1310 EST Nursing Discharge Note D: Patient noted with discharge orders to: start 3rd dose of eliquis. A: Prescriptions faxed to pharmacy. Reviewed discharge instructions and prescriptions with Patient. Left with at 13:13 IV d/c'd. Belongings collected and sent home with patient. R: Patient verbalized understanding of discharge instructions and denied further questions. Rxoann Sullivan RN 02/24/2021 13:31 Plan of Care - Enid Bob RN - 02/23/2021 0344 EST Patient complaining of pain in BLE. MONIQUE stockings applied to bilat calf. Heparin drip infusing at 18u/kg/hr (See APR). UFH to be drawn with morning labs at 0600 02/23. PRN tylenol given for BLE pain and headache. NSR to ST on telemetry. Will cont to monitor Enid Bob RN 02/23/2021 3:45 Problem: PAIN Goal: Patient's pain/discomfort is manageable/tolerable Outcome: Ongoing Plan of Care - Jaz Stuart RN - 02/22/2021 1441 EST Problem: Daily Care Plan Goals Goal: Care Plan Documentation Outcome: Met This Shift Problem: High Fall Risk: Goal: Patient will Remain Free of Falls due to Dizziness/Vertigo Outcome: Met This Shift Problem: High Fall Risk: Goal: Patient Will Remain Free from Fall-Related Injury Outcome: Met This Shift Problem: Sensory: Goal: Ability to compensate for vision loss will be supported Outcome: Met This Shift Pt AAOX3 - able to make needs known Ringing appropriately for assistance when needed Clear pathways to bathroom Pt ambulating independently in room Plan of Care - Zuleyma Trejo - 02/22/2021 0813 EST Initial Case Management/Social Work Assessment and Discharge Plan/Readmission Risk Assessment REASON FOR ADMISSION: IVC thrombosis ([facility]) ([facility]) Patient understands reason for admission: (P) Yes PATIENT INFO VERIFIED: (P) PCP, Contact Info, Address Type of housing (single family, condo, apartment, detention, single room occupancy, [facility] funded hotel room, group retirement) - Single family Who does the patient live with? The Pt lives with his . Does the patient have access to their own bedroom/bathroom/kitchen - or is it shared with others? Shared Name of housing complex (ex [employer], [facility], etc)- n/a Housing Authority/Managing Organization - n/a Community Care Providers (case planner, [facility] nurse, etc) name and contact information- n/a LIVING ARRANGEMENTS AND ACCESSIBILITY ISSUES: Living Arrangements: (P) Spouse / significant other Levels: (P) 2 Stairs to enter: (P) 1 Handicap access: (P) None Bathroom located on bedroom level?: (P) Yes What in home social supports are available to the patient? (P) Spouse / significant other Is 22/09 care available? (P) Yes ADVANCED DIRECTIVES, POA &/or COLST IN PLACE: Healthcare Directive: No, patient does not have advance directive for healthcare treatment Information Provided on Healthcare Directives: No Information on Healthcare Directives Requested: No DIRECTIVES FOR FINANCES: Directive For Finances: No TRANSPORTATION: Transportation: (P) Family Transportation Additional Details: (P) The Pt plans to be transported home by his , Karlie, at discharge. CULTURAL, FAITH and/or LANGUAGE factors affecting health care/discharge planning: Spiritual/Cultural Requests: None Language/Literacy Needs Do you need us to provide any communication aids or devices?: No Insurance Information: Medical Insurance: Yes Type of insurance: Commercial insurance Commercial coverage: [facility] [employer] Referred to patient financial services: Yes (The Pt shared that he has had aassistance through the hospital in the past, but thinks it relapsed. I have asked PFS to meet with the Pt to discuss/help apply for the assistance application through the hospital.) Nutrition: DISCHARGE RISK ASSESSMENT: (P) None of the above risks identified Total # selected above: (P) Score of 1 - 2: This patient is at LOW RISK for re-hospitalization Tentative plan to address the risk of re-hospitalization for those at HIGH MODERATE RISK: (P) Bring risk factors to attention of team to be addressed;Refer to skilled home care services RAPT TOOL: SBIRT: FUNCTIONAL STATUS: Activities patient requires assistance: (P) None Assistive Device: (P) None COMMUNITY RESOURCES/SUPPORTS: Primary Care Provider: Brooks Duarte PCP Verified: Specialists: (P) None Type of Home Health Services: (P) None DME Provider: Pharmacy: [facility] [address] [place] [address], [place] - [address] [place] [address] [id number] [facility] [address] [facility] [id number] Home Health: Other: POST HOSPITAL TRANSITION PLAN: The Pt is a pleasant [age] year old gentleman who resides with his in [place]. The Pt is alert and oriented times three. He confirmed that his demographic information and PCP are up to date. The Pt reports that he is independent in her ADLs, and does not use any assisting devices when ambulating at home. The Pt shared that his home is two stories, with one step to enter into his home. Per the Pt, he can reside on the first floor of his home if needed. The Pt is not active with home health or any case planner, and does not anticipate the need for VNA Services at discharge. If Home Health Services are recommended, the Pt reports that he would need to discuss this recommendation with his before agreeing to VNA Services. The Pt plans to be transported home by his at discharge. Zuleyma Burchrott 02/22/2021 8:13 Plan of Care - Carlyn Malave RN - 02/22/2021 0344 EST Amilcar Waldron,60 y.o,admitted to unit from ED with chief c/o Bilateral lower exremity swelling inlegs, calves, and thighs. Other c/o lower back pain lasting for a couple of weeks. Pt arrive on unitadmitted to room 247-02; alert and oriented x3, c/o headache rated pain 3/10 (prn tylenol administered). Pt arrived with Heparin drip transfusing, and access to left forearm. Ambulates independently tobathroom. Skin assessment performed with 2nd RN, Sandra May; no skin issues noted at this time; all bony prominences intact. Pt currently on Telemetry. documented in this encounter Plan of Treatment Scheduled Referrals Name Type Priority Associated Order Schedule Diagnoses AMB CONS/FOLLOW UP Outpatient Routine/Next IVC thrombosis Expecte d: HEMATOLOGY Referral Available ([facility]) ([facility]) 05/23/2021 DVT, lower (Approximate), extremity, Expires: proximal, acute, 02/22/2022 bilateral ([facility]) ([facility]) documented as of this encounter Procedures Procedure Name Priority Date/Time Associated Comments Diagnosis ECG REPORT - SCANNED 02/26/2021 10:08 EST ECG REPORT - SCANNED 02/23/2021 23:59 EST HEPARIN LEVEL - STAT 02/23/2021 6:05 Results f or this UNFRACTIONATED HEPARIN EST proce dure are in the results section. CT OUTSIDE IMAGES BODY Routine 02/22/2021 7:34 Re sults for this EST procedure are i n the results section. HEPARIN LEVEL - STAT 02/22/2021 3:12 Results f or this UNFRACTIONATED HEPARIN EST proce dure are in the results section. COMPLETE BLOOD COUNT Routine 02/22/2021 3:12 Resu lts for this AND DIFFERENTIAL EST procedure a re in the results section. COMPREHENSIVE METABOLIC Routine 02/22/2021 3:12 R esults for this PANEL (CMP) EST procedure are i n the results section. ZZCOVID-19 TESTING STAT 02/21/2021 22:04 Resul ts for this ([facility], PM[facility],HP) EST procedure are in the results section. COVID-19 CV (TESTING STAT 02/21/2021 22:04 R esults for this ONLY) EST procedure are i n the results section. INFLUENZA A AND B,RSV STAT 02/21/2021 22:04 Re sults for this PCR EST procedure are i n the results section. CT ABDOMEN PELVIS W STAT 02/21/2021 20:45 Resu lts for this CONTRAST EST procedure are i n the results section. D-DIMER STAT 02/21/2021 18:43 Results for this EST procedure are i n the results section. UA WITH REFLEX SEDIMENT STAT 02/21/2021 18:12 Results for this (CULTURE IF POS) EST procedure a re in the results section. COMPLETE BLOOD COUNT STAT 02/21/2021 17:51 Res ults for this AND DIFFERENTIAL EST procedure a re in the results section. NT PRO BNP STAT 02/21/2021 17:51 Results for this EST procedure are i n the results section. MAGNESIUM STAT 02/21/2021 17:51 Results for this EST procedure are i n the results section. CK STAT 02/21/2021 17:51 Results for this EST procedure are i n the results section. COMPREHENSIVE METABOLIC STAT 02/21/2021 17:51 Results for this PANEL (CMP) EST procedure are i n the results section. EKG 12-LEAD STAT 02/21/2021 17:28 Results for this EST procedure are i n the results section. documented in this encounter Results ECG REPORT - SCANNED (02/26/2021 10:08 EST) Specimen (Source) Anatomical Collection Method Collection Time Re ceived Time Location / / Volume Laterality 02/26/2021 10:08 EST Narrative This result has an attachment that is no t available. [place] [employer] PROCEDURE/MINOR SURGICAL ORD ERABLES ECG REPORT - SCANNED (02/23/2021 23:59 EST) Specimen (Source) Anatomical Collection Method Collection Time Re ceived Time Location / / Volume Laterality 02/23/2021 23:59 EST Narrative This result has an attachment that is no t available. Scan [employer] [place] [employer] Technician PROCEDURE/MINOR SURGICAL ORD ERABLES HEPARIN LEVEL - UNFRACTIONATED HEPARIN (02/23/2021 6:05 EST) [facility] Method Time Signature Heparin 0.39 Therapeutic 02/23/2021 [facility] Level-UFH Range: 0.30 - 6:56 EST [facility] 0.70 IU/mL [facility] Comment: Unfractionated heparin therape utic range = 0.3-0.7 IU/ml - This test is not intended for monitoring direct Xa inhibi tors, direct thrombin inhibitors, or fondaparinux.- Exogenous ATIII is NOT [place] pplied in this assay. For unexpected or persistently low levels, consider measur ing patient's ATIII level. Results will be overestimated in the presence of direct Xa inhibitors (rivaroxaban, apixaban, edoxaban). Specimen Anatomical Collection Method / Collection Time Recei jas Time (Source) Location / Volume Laterality Blood VENOUS BLOOD / Venipuncture / 02/23/2021 6:05 02/24/20 21 6:39 Unknown Unknown EST EST Pam Cadet MD HEMATOLOGY & PF4 ORDERABLES Performing Organization Address City/State/ZIP Code Phon e Number [facility] [address] [place] [address] CT OUTSIDE IMAGES BODY (02/22/2021 7:34 EST) Specimen (Source) Anatomical Location Collection Method / Collectio n Time Received Time / Laterality Volume Narrative 02/22/2021 7:34 EST This is a non-reportable exam. Provider Unknown MD IMG OTHER IMAGING ORDERABLES HEPARIN LEVEL - UNFRACTIONATED HEPARIN (02/22/2021 3:12 EST) [facility] Method Time Signature Heparin 0.70 Therapeutic 02/22/2021 [facility] Level-UFH Range: 0.30 - 3:24 EST [facility] 0.70 IU/mL [facility] Comment: Unfractionated heparin therape utic range = 0.3-0.7 IU/ml - This test is not intended for monitoring direct Xa inhibi tors, direct thrombin inhibitors, or fondaparinux.- Exogenous ATIII is NOT [place] pplied in this assay. For unexpected or persistently low levels, consider measur ing patient's ATIII level. Results will be overestimated in the presence of direct Xa inhibitors (rivaroxaban, apixaban, edoxaban). Specimen Anatomical Collection Method / Collection Time Recei jas Time (Source) Location / Volume Laterality Blood VENOUS BLOOD / Venipuncture / 02/22/2021 3:12 02/23/20 21 3:16 Unknown Unknown EST EST Pam Cadet MD HEMATOLOGY & PF4 ORDERABLES Performing Organization Address City/State/ZIP Code Phon e Number [facility] [address] [place] [address] (ABNORMAL) COMPLETE BLOOD COUNT AND DIFFERENTIAL (02/22/2021 3:12 EST) [facility] Method Time Signature WBC 9.72 4.00 - 02/22/2021 [facility] 10.40 3:18 [facility] K/cmm [place] [facility] RBC 3.83 (L) 4.36 - 02/22/2021 [facility] 5.78 M/cmm 3:18 [facility] Hemoglobin 11.3 (L) 13.8 - 02/22/2021 [facility] 17.3 gm/dL 3:18 [facility] HCT 35.5 (L) 39.5 - 02/22/2021 [facility] 50.2 % 3:18 [facility] MCV 93 81 - 95 fl 02/22/2021 [facility] 3:18 [facility] MCH 29.5 27.6 - 02/22/2021 [facility] 33.0 pg 3:18 [facility] MCHC 31.8 (L) 32.8 - 02/22/2021 [facility] 36.4 gm/dL 3:18 [facility] RDW-CV 13.5 <14.2 % 02/22/2021 [facility] 3:18 [facility] RDW-SD 45.8 <46.0 fl 02/22/2021 [facility] 3:18 [facility] PLT 266 141 - 377 02/22/2021 [facility] K/cmm 3:18 [facility] MPV 9.3 (L) 9.5 - 12.7 02/22/2021 [facility] fl 3:18 [facility] Neutrophils 63.8 % 02/22/2021 [facility] 3:18 [facility] Lymphocytes 22.4 % 02/22/2021 [facility] 3:18 [facility] Monocytes 11.0 % 02/22/2021 [facility] 3:18 [facility] Eosinophils 1.9 % 02/22/2021 [facility] 3:18 [facility] Basophils 0.6 % 02/22/2021 [facility] 3:18 [facility] Immature Grans 0.3 % 02/22/2021 [facility] 3:18 [facility] Absolute 6.20 2.20 - 02/22/2021 [facility] Neutrophils 8.85 K/cmm 3:18 [facility] Absolute 2.18 1.09 - 02/22/2021 [facility] Lymphocytes 3.30 K/cmm 3:18 [facility] Absolute 1.07 (H) 0.10 - 02/22/2021 [facility] Monocytes 0.80 K/cmm 3:18 [facility] Absolute 0.18 0.03 - 02/22/2021 [facility] Eosinophils 0.61 K/cmm 3:18 [facility] Absolute 0.06 0.01 - 02/22/2021 [facility] Basophils 0.11 K/cmm 3:18 [facility] Absolute 0.03 0.00 - 02/22/2021 [facility] Immature Grans 0.06 K/cmm 3:18 [facility] Type of Auto 02/22/2021 [facility] Differential: 3:18 [facility] Specimen Anatomical Collection Method / Collection Time Recei jas Time (Source) Location / Volume Laterality Blood VENOUS BLOOD / Venipuncture / 02/22/2021 3:12 02/23/20 3:16 Unknown Unknown EST [facility] Rosa BLACKWELL PACKAGES & DNA PROBE ORDERAB LES Performing Organization Address City/State/ZIP Code Phon e Number [facility] [address] [place] [address] (ABNORMAL) COMPREHENSIVE METABOLIC PANEL (CMP) (02/22/2021 3:12 EST) athologist Signature Sodium 138 136 - 145 02/22/2021 [facility] mmol/L 4:08 [facility] Potassium 3.9 3.5 - 5.0 02/22/2021 [facility] mmol/L 4:08 [facility] Chloride 101 96 - 110 02/22/2021 [facility] mmol/L 4:08 [facility] CO2 Total 30 22 - 32 02/22/2021 [facility] mmol/L 4:08 [facility] Glucose 94 70 - 100 02/22/2021 [facility] mg/dL 4:08 [facility] BUN 17 10 - 26 02/22/2021 [facility] mg/dL 4:08 [facility] Creatinine 0.90 0.66 - 02/22/2021 [facility] 1.25 mg/dL 4:08 [facility] eGFR 92 >60 02/22/2021 [facility] mL/min/1.7 4:[address] LAB Total Protein 6.7 6.3 - 8.2 02/22/2021 [facility] g/dL 4:08 [facility] Albumin 3.9 3.4 - 4.9 02/22/2021 [facility] g/dL 4:08 [facility] Alkaline 77 38 - 126 02/22/2021 [facility] Phosphatase U/L 4:08 [facility] AST 29 15 - 46 02/22/2021 [facility] U/L 4:08 [facility] ALT 20 <50 U/L 02/22/2021 [facility] 4:08 [facility] Bilirubin, Total 0.6 <1.4 mg/dL 02/22/2021 [facility] 4:08 [facility] Calcium 8.8 8.5 - 10.5 02/22/2021 [facility] mg/dL 4:08 [facility] Albumin/Globulin 1.4 1.0 - 2.5 02/22/2021 [facility] Ratio 4:08 [facility] Anion Gap 7 (L) 8 - 16 02/22/2021 [facility] 4:08 [facility] Specimen Anatomical Collection Method / Collection Time Recei jas Time (Source) Location / Volume Laterality Blood VENOUS BLOOD / Venipuncture / 02/22/2021 3:12 02/23/20 21 3:16 Unknown Unknown EST EST Rosa BLACKWELL CHEMISTRY & BLOOD GAS ORDERA BLES Performing Organization Address City/State/ZIP Code Phon e Number [facility] [address] [place] [address] COVID-19 PMC [facility] CVPH [facility] (TESTING ONLY) (02/21/2021 22:04 EST) P athologist Signature COVID-19 Negative Negative 02/21/2021 [facility] rt-PCR Result 22:53 EST [facility] Comment: This test has not been FDA cleared or ap proved. This test has been authorized by FDA under an EUA for use by authorized laboratories. This test has been authorized only for detection of nucleic acid fro m 2019-nCoV, not for any other viruses o r pathogens. This test is only authorized for the duration of the declaration that circumstances exist justifying the authorization of emergency use of in vitro d iagnostic tests for detection and/or anil gnosis of 2019-nCoV under section 564(b)(1) of Act, 21 U.S.C ?? 360bbb-3(b) (1), unless the authorization is terminated or revoked sooner. Performed on the [employer] GeneXpert Instr ument The 2019 novel coronavirus (SARS-CoV-2) target nucleic acids are not detected. Specimen Anatomical Location Collection Method Collection Time Received Time (Source) / Laterality / Volume Swab ENTIRE NASOPHARYNX Swab / Unknown 02/21/2021 22:04 / Unknown EST 22:12 EST Pam Cadet MD MICROBIOLOGY - GENERAL ORDER LARRY Performing Organization Address City/State/ZIP Code Phon e Number [facility] [address] [place] [address] COVID-19 TESTING (CV, PMC, HP) (02/21/2021 22:04 EST) Patholo gist Method Time Signature Performing Lab [facility] 02/21/2021 [facility] 22:13 EST [facility] Specimen Anatomical Location Collection Method Collection Time Received Time (Source) / Laterality / Volume Swab ENTIRE NASOPHARYNX Swab / Unknown 02/21/2021 22:04 / Unknown EST 22:12 EST Pam Cadet MD MICROBIOLOGY - GENERAL ORDER LARRY Performing Organization Address City/State/ZIP Code Phon e Number [facility] [address] [place] [address] INFLUENZA A AND B,RSV PCR (02/21/2021 22:04 EST) P athologist Signature FLU A RNA Negative Negative 02/21/2021 [facility] Result 22:53 EST [facility] FLU B RNA Negative Negative 02/21/2021 [facility] Result 22:53 EST [facility] RSV RNA Result Negative Negative 02/21/2021 [facility] (RSVRES) 22:53 EST [facility] Specimen Anatomical Location Collection Method Collection Time Received Time (Source) / Laterality / Volume Swab ENTIRE NASOPHARYNX Swab / Unknown 02/21/2021 22:04 / Unknown EST 22:12 EST Pam Cadet MD MICROBIOLOGY - GENERAL ORDER LARRY Performing Organization Address City/[facility]/ZIP Code Phon e Number [facility] [address] [place] [address] CT ABDOMEN PELVIS W CONTRAST (02/21/2021 20:45 EST) Anatomical Region Laterality Modality Body, Abdomen, Pelvis, Abdomen and Pelvis Computed Tomography Specimen (Source) Anatomical Collection Method Collection Time Re ceived Time Location / / Volume Laterality 02/21/2021 20:20 EST Impressions 02/21/2021 21:42 EST 1. Clots as described above. Please see discussion above. 2. Small to moderate hiatal hernia. 3. Suspect constipation as above. 4. Mild fatty infiltration of the liver. 5. Multiple bilateral simple parapelvic renal cysts. THIS REPORT CONTAINS FINDINGS THAT MAY B E CRITICAL TO PATIENT CARE. The findings were verbally communi cated via telephone conference with PAM Eckert at 9: 38 PM EST on 02/21/2021. The findings were acknowledged and under stood. COMMENTS: Consistent with the [employer]'s Incidental Findings Committee white paper (J Am Col l Radiol 2018): Any incidental renal lesion less than 1 cm o r classified as too small to characterize, or any incidental cystic renal lesion characterized as simple-appearing, is li [place] benign. No follow-up imaging is recommended for the se lesions per consensus recommendations based on imaging criteri a. THIS DOCUMENT HAS BEEN ELECTRONICALLY SI GNED BY NASREEN SIMON MD FOR ANY QUESTIONS OR CONCERNS REGARDING THIS REPORT PLEASE CALL [facility] AT [phone] Narrative 02/21/2021 21:42 EST PROCEDURE INFORMATION: Exam: CT Abdomen And Pelvis With Contras t Exam date and time: 02/21/2021 8:20 PM Age: 60 years old Clinical indication: Other: Back pain; P rior surgery; Surgery type: Inguinal hernia, umbilical hernia; Additional info: Sudden onset bilateral leg swelling, concern fo r proximal clot, elevated d dimer TECHNIQUE: Imaging protocol: Computed tomography of the abdomen and pelvis with contrast. Radiation optimization: All CT scans at this facility use at least one of these dose optimization carmine hniques: automated exposure control; mA and/or kV adjustmen t per patient size (includes targeted exams where dose is m atched to clinical indication); or iterative reconstruction . Contrast material: OMNI 350; Contrast vo lume: 100 ml; Contrast route: INTRAVENOUS (IV); ?? COMPARISON: No relevant prior studies available. FINDINGS: Lungs: The visualized lung bases appear within normal limits. Heart: The visualized portions of the he art and pericardium appear unremarkable. Diaphragm: There is a small to moderate hiatal hernia. Liver: There is mild fatty infiltration of the liver. Gallbladder and bile ducts: The gallblad roula is unremarkable. Pancreas: The pancreas is within normal limits. Spleen: The spleen is unremarkable. Adrenal glands: The adrenal glands are u nremarkable. Kidneys and ureters: There are multiple bilateral simple parapelvic renal cysts. Stomach and bowel: There are feces withi n the colon which are suspicious for constipation. Appendix: The appendix is visualized and is within normal limits. Intraperitoneal space: Unremarkable. No free air. No significant fluid collection. Vasculature: On the left side there is a large clot within the left external iliac vein. There is a lar ge clot within the left internal iliac vein. ??There is extensio n of the clot into the left common iliac vein. On the right charmaine e there is a suspected clot within the right femoral vein exten ding into the right common femoral vein. There is a clot in the right common iliac vein. The common right and left iliac ve in clots extend into the IVC which is thrombosed. 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 The duplicate d left-sided IVC ??is clotted and goes into the lumbar veins o n the left side. The IVC superior to the narrowing does not have a clot and is opacified by the renal veins, right lumbar vein an d inferior mesenteric vein. The IVC in the intrahepatic region is normally opacified going into the heart. There are collater al mesenteric veins seen in the anterior abdomen on the axial vinny ges series 201 images 45 to 64. There are dilated paralumbar vein s at the level of the chest feeding a large kolton azygous and a zygous vein. There is inflammation surrounding the left optical glass etcher al iliac vein. Lymph nodes: ??No enlarged lymph nodes. Urinary bladder: The urinary bladder is within normal limits. Reproductive: The prostate and seminal v esicles are within normal limits. Bones/joints: There are degenerative shayla nges of the thoracic spine. Soft tissues: Unremarkable. Procedure Note Nasreen Simon MD - 02/21/2021 PROCEDURE INFORMATION: Exam: CT Abdomen And Pelvis With Contras t Exam date and time: 02/21/2021 8:20 PM Age: 60 years old Clinical indication: Other: Back pain; P rior surgery; Surgery type: Inguinal hernia, umbilical hernia; Additional info: Sudden onset bilateral leg swelling, concern fo r proximal clot, elevated d dimer TECHNIQUE: Imaging protocol: Computed tomography of the abdomen and pelvis with contrast. Radiation optimization: All CT scans at this facility use at least one of these dose optimization carmine hniques: automated exposure control; mA and/or kV adjustmen t per patient size (includes targeted exams where dose is m atched to clinical indication); or iterative reconstruction . Contrast material: OMNI 350; Contrast vo lume: 100 ml; Contrast route: INTRAVENOUS (IV); COMPARISON: No relevant prior studies available. FINDINGS: Lungs: The visualized lung bases appear within normal limits. Heart: The visualized portions of the he art and pericardium appear unremarkable. Diaphragm: There is a small to moderate hiatal hernia. Liver: There is mild fatty infiltration of the liver. Gallbladder and bile ducts: The gallblad roula is unremarkable. Pancreas: The pancreas is within normal limits. Spleen: The spleen is unremarkable. Adrenal glands: The adrenal glands are u nremarkable. Kidneys and ureters: There are multiple bilateral simple parapelvic renal cysts. Stomach and bowel: There are feces withi n the colon which are suspicious for constipation. Appendix: The appendix is visualized and is within normal limits. Intraperitoneal space: Unremarkable. No free air. No significant fluid collection. Vasculature: On the left side there is a large clot within the left external iliac vein. There is a lar ge clot within the left internal iliac vein. There is extension of the clot into the left common iliac vein. On the right charmaine e there is a suspected clot within the right femoral vein exten ding into the right common femoral vein. There is a clot in the right common iliac vein. The common right and left iliac ve in clots extend into the IVC which is thrombosed. 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 The duplicate d left-sided IVC is clotted and goes into the lumbar veins o n the left side. The IVC superior to the narrowing does not have a clot and is opacified by the renal veins, right lumbar vein an d inferior mesenteric vein. The IVC in the intrahepatic region is normally opacified going into the heart. There are collater al mesenteric veins seen in the anterior abdomen on the axial vinny ges series 201 images 45 to 64. There are dilated paralumbar vein s at the level of the chest feeding a large kolton azygous and a zygous vein. There is inflammation surrounding the left optical glass etcher al iliac vein. Lymph nodes: No enlarged lymph nodes. Urinary bladder: The urinary bladder is within normal limits. Reproductive: The prostate and seminal v esicles are within normal limits. Bones/joints: There are degenerative shayla nges of the thoracic spine. Soft tissues: Unremarkable. IMPRESSION 1. Clots as described above. Please see discussion above. 2. Small to moderate hiatal hernia. 3. Suspect constipation as above. 4. Mild fatty infiltration of the liver. 5. Multiple bilateral simple parapelvic renal cysts. THIS REPORT CONTAINS FINDINGS THAT MAY B E CRITICAL TO PATIENT CARE. The findings were verbally communi cated via telephone conference with PAM Eckert at 9: 38 PM EST on 02/21/2021. The findings were acknowledged and under stood. COMMENTS: Consistent with the [employer]'s Incidental Findings Committee white paper (J Am Col l Radiol 2018): Any incidental renal lesion less than 1 cm o r classified as too small to characterize, or any incidental cystic renal lesion characterized as simple-appearing, is li alexand[place] benign. No follow-up imaging is recommended for the se lesions per consensus recommendations based on imaging criteri a. THIS DOCUMENT HAS BEEN ELECTRONICALLY SI GNED BY NASREEN SIMON MD FOR ANY QUESTIONS OR CONCERNS REGARDING THIS REPORT PLEASE CALL [facility] AT [phone] Pam Cadet MD IMG CT ORDERABLES (ABNORMAL) D-DIMER (02/21/2021 18:43 EST) athologist Signature D-Dimer 1,888 (H) <230 ng/mL 02/21/2021 [facility] DDU 19:05 EST [facility] Specimen Anatomical Collection Method / Collection Time Recei jas Time (Source) Location / Volume Laterality Blood VENOUS BLOOD / Venipuncture / 02/21/2021 18:43 Unknown Unknown EST 18:47 EST Narrative [facility] - 021 19:05 EST Cutoff value for the exclusion of DVT an d PE: 230 ng/mL D-dimer units. Any use of the age-adjusted cutoff value is a post-anal ytic modification of this FDA-approved test and is considered off-label use of the test result. Pam Cadet MD HEMATOLOGY & PF4 ORDERABLES Performing Organization Address City/State/ZIP Code Phon e Number [facility] [address] [place] [address] UA WITH REFLEX SEDIMENT (CULTURE IF POS) (02/21/2021 18:12 EST) [facility] gist Method Time Signature Color UA Yellow Colorless to 02/21/2021 [facility] Dark Yellow 18:42 EST [facility] Clarity UA Clear Clear 02/21/2021 [facility] 18:42 EST [facility] Glucose UA Negative Negative 02/21/2021 [facility] 18:42 [facility] Bilirubin UA Negative Negative 02/21/2021 [facility] 18:42 [facility] Ketones UA Negative Negative 02/21/2021 [facility] 18:42 [facility] Specific 1.020 1.001 - 1.035 02/21/2021 [facility] [place], Urine 18:42 [facility] Blood UA Negative Negative 02/21/2021 [facility] 18:42 [facility] pH, UA 5.5 4.6 - 8.0 02/21/2021 [facility] 18:42 [facility] Protein UA Negative Negative 02/21/2021 [facility] 18:42 [facility] Urobilinogen UA 0.2 0.2 , 1.0, 02/21/2021 [facility] Normal mg/dL 18:42 [facility] Nitrite UA Negative Negative 02/21/2021 [facility] 18:42 [facility] Leukocyte Negative Negative 02/21/2021 [facility] Esterase UA 18:42 [facility] Specimen Anatomical Collection Method Collection Time Receive d Time (Source) Location / / Volume Laterality Urine URINE SPECIMEN Urine Collect / 02/21/2021 18:12 2020 COLLECTION, CLEAN Unknown EST 18:15 EST CATCH / Unknown Pam Cadet MD URINALYSIS ORDERABLES Performing Organization Address City/State/ZIP Code Phon e Number [facility] [address] [place] [address] MAGNESIUM (02/21/2021 17:51 EST) athologist Signature Magnesium 1.9 1.7 - 2.8 02/21/2021 [facility] mg/dL 18:17 [facility] Specimen Anatomical Collection Method / Collection Time Recei jas Time (Source) Location / Volume Laterality Blood VENOUS BLOOD / Venipuncture / 02/21/2021 17:51 021 Unknown Unknown EST 17:56 EST Pam Cadet MD CHEMISTRY & BLOOD GAS ORDERA BLES Performing Organization Address City/[facility] Code Phon e Number [facility] [address] [place] [address] NT PRO BNP (02/21/2021 17:51 EST) athologist Signature NT-pro BNP <12 <125 pg/mL 02/21/2021 [facility] 18:36 EST [facility] Comment: The results of this assay can b e falsely lowered due to consumption of Biotin. Specimen Anatomical Collection Method / Collection Time Recei jas Time (Source) Location / Volume Laterality Blood VENOUS BLOOD / Venipuncture / 02/21/2021 17:51 021 Unknown Unknown EST 17:56 EST Pam Cadet MD CHEMISTRY & BLOOD GAS ORDERA BLES Performing Organization Address City/State/ZIP Code Phon e Number [facility] [address] [place] [address] CK (02/21/2021 17:51 EST) P athologist Signature CK 144 <=250 U/L 02/21/2021 [facility] 18:17 [facility] Specimen Anatomical Collection Method / Collection Time Recei jas Time (Source) Location / Volume Laterality Blood VENOUS BLOOD / Venipuncture / 02/21/2021 17:51 021 Unknown Unknown EST 17:56 EST Pam Cadet MD CHEMISTRY & BLOOD GAS ORDERA BLES Performing Organization Address City/[facility]/ZIP Code Phon e Number [facility] [address] [place] [address] (ABNORMAL) COMPREHENSIVE METABOLIC PANEL (CMP) (02/21/2021 17:51 EST) [facility] gist Method Time Signature Sodium 137 136 - 145 02/21/2021 [facility] mmol/L 18:17 [facility] Potassium 4.2 3.5 - 5.0 02/21/2021 [facility] mmol/L 18:17 [facility] Chloride 100 96 - 110 02/21/2021 [facility] mmol/L 18:17 [facility] CO2 Total 29 22 - 32 02/21/2021 [facility] mmol/L 18:17 [facility] Glucose 93 70 - 100 02/21/2021 [facility] mg/dL 18:17 [facility] BUN 18 10 - 26 02/21/2021 [facility] mg/dL 18:17 [facility] Creatinine 0.61 (L) 0.66 - 02/21/2021 [facility] 1.25 mg/dL 18:17 [facility] eGFR 108 >60 02/21/2021 [facility] mL/min/1.7 18:[address] [facility] Total Protein 7.2 6.3 - 8.2 02/21/2021 [facility] g/dL 18:17 [facility] Albumin 4.2 3.4 - 4.9 02/21/2021 [facility] g/dL 18:17 [facility] Alkaline 93 38 - 126 02/21/2021 [facility] Phosphatase U/L 18:17 [facility] AST 31 15 - 46 02/21/2021 [facility] U/L 18:17 [facility] ALT 21 <50 U/L 02/21/2021 [facility] 18:17 [facility] Bilirubin, Total 0.6 <1.4 mg/dL 02/21/2021 [facility] 18:17 [facility] Calcium 8.7 8.5 - 10.5 02/21/2021 [facility] mg/dL 18:17 [facility] Albumin/Globulin 1.4 1.0 - 2.5 02/21/2021 [facility] Ratio 18:17 [facility] Anion Gap 8 8 - 16 02/21/2021 [facility] 18:17 [facility] Specimen Anatomical Collection Method / Collection Time Recei jas Time (Source) Location / Volume Laterality Blood VENOUS BLOOD / Venipuncture / 02/21/2021 17:51 021 Unknown Unknown EST 17:56 EST Pam Cadet MD CHEMISTRY & BLOOD GAS ORDERA BLES Performing Organization Address City/State/ZIP Code Phon e Number [facility] [address] [place] [address] (ABNORMAL) COMPLETE BLOOD COUNT AND DIFFERENTIAL (02/21/2021 17:51 EST) [facility] gist Method Time Signature WBC 10.37 4.00 - 02/21/2021 [facility] 10.40 18:13 [facility] K/cmm [facility] RBC 3.94 (L) 4.36 - 02/21/2021 [facility] 5.78 M/cmm 18:13 [facility] Hemoglobin 11.7 (L) 13.8 - 02/21/2021 [facility] 17.3 gm/dL 18:13 [facility] HCT 35.5 (L) 39.5 - 02/21/2021 [facility] 50.2 % 18:13 [facility] MCV 90 81 - 95 fl 02/21/2021 [facility] 18:13 [facility] MCH 29.7 27.6 - 02/21/2021 [facility] 33.0 pg 18:13 [facility] MCHC 33.0 32.8 - 02/21/2021 [facility] 36.4 gm/dL 18:13 [facility] RDW-CV 13.2 <14.2 % 02/21/2021 [facility] 18:13 [facility] RDW-SD 43.8 <46.0 fl 02/21/2021 [facility] 18:13 [facility] PLT 300 141 - 377 02/21/2021 [facility] K/cmm 18:13 [facility] MPV 9.2 (L) 9.5 - 12.7 02/21/2021 [facility] fl 18:13 [facility] Neutrophils 70.8 % 02/21/2021 [facility] 18:13 [facility] Lymphocytes 15.9 % 02/21/2021 [facility] 18:13 [facility] Monocytes 10.4 % 02/21/2021 [facility] 18:13 [facility] Eosinophils 1.9 % 02/21/2021 [facility] 18:13 [facility] Basophils 0.5 % 02/21/2021 [facility] 18:13 [facility] Immature Grans 0.5 % 02/21/2021 [facility] 18:13 [facility] Absolute 7.34 2.20 - 02/21/2021 [facility] Neutrophils 8.85 K/cmm 18:13 [facility] Absolute 1.65 1.09 - 02/21/2021 [facility] Lymphocytes 3.30 K/cmm 18:13 [facility] Absolute 1.08 (H) 0.10 - 02/21/2021 [facility] Monocytes 0.80 K/cmm 18:13 [facility] Absolute 0.20 0.03 - 02/21/2021 [facility] Eosinophils 0.61 K/cmm 18:13 [facility] Absolute 0.05 0.01 - 02/21/2021 [facility] Basophils 0.11 K/cmm 18:13 [facility] Absolute 0.05 0.00 - 02/21/2021 [facility] Immature Grans 0.06 K/cmm 18:13 EST [facility] Type of Auto 02/21/2021 [place] Differential: 18:13 EST [facility] Specimen Anatomical Collection Method / Collection Time Recei jas Time (Source) Location / Volume Laterality Blood VENOUS BLOOD / Venipuncture / 02/21/2021 17:51 021 Unknown Unknown EST 17:56 EST Pam Cadet MD PACKAGES & DNA PROBE ORDERAB LES Performing Organization Address City/State/ZIP Code Phon e Number [facility] [address] [place] [address] EKG 12-LEAD (02/21/2021 17:28 EST) Specimen (Source) Anatomical Collection Method Collection Time Re ceived Time Location / / Volume Laterality 02/21/2021 17:28 EST Narrative [facility] - 23:56 EST ? [facility] ? Test Date: ?2021-02-21 Pat Name: ? AMILCARRAOUL WALDRON ? Department: ? Room: ? A04 Gender: ? Male ? Side Laster Staple: ?? DT : ?1960 ? Requested By: ADIA OROZCO Order Number: [id number] ? Ingris LOPEZ: ?? AIDA STEWART MD ? Measurements Intervals ?[place] ? Rate: ? 86 ? P: ?32 IN: ? 150 ?QRS: ?-15 QRSD: ? 96 ? T: ?33 QT: ? 374 ? QTc: ?447 ? Interpretive Statements Normal sinus rhythm No previous ECG available for comparison I reviewed the tracing and have either a greed or edited the findings in this report. Electronically Signed On 021 23:56:15 EST by AIDA STEWART MD. Procedure Note Aida Stewart MD - 02/23/2021F ormatting of this note might be different from the original. [facility] Test Date: 2021-02-21 Pat Name: AMILCAR WALDRON Department: Room: A04 Gender: Male Side Laster Staple: DT : 1960 Requested By: ADIA ESQUIVEL Order Number: [id number] Reading MD: Deshawn STEWART MD Measurements Intervals [place] Rate: 86 P: 32 IN: 150 QRS: -15 QRSD: 96 T: 33 QT: 374 QTc: 447 Interpretive Statements Normal sinus rhythm No previous ECG available for comparison I reviewed the tracing and have either a greed or edited the findings in this report. Electronically Signed On 23:56:15 EST by AIDA STEWART MD. 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) GERD (gastroesophageal reflux disease) Esophageal reflux Hypothyroidism Unspecified hypothyroidism DVT, lower extremity, proximal, acute, b ilateral (HCC-CMS) (HCC) documented in this encounter Admitting Diagnoses Diagnosis DVT, lower extremity, proximal, acute, b ilateral (HCC-CMS) ([facility]) documented in this encounter Administered Medications Inactive Administered Medications - up to 3 most recent administrations Medication Order MAR Action Action Date Dose Rate Site acetaminophen (TYLENOL) tablet 650 mg Given 02/24/2021 6:16 EST 650 mg 650 mg, oral, EVERY 6 HOURS PRN, Starting on Thu02/22/21 at 0005, Until 02/24/21 at 1514, Pain, Fever, Mild Pain 1-3, Moderate Pain 4-6, Routine Given 02/23/2021 20:22 EST 650 mg Given 02/23/2021 8:27 EST 650 mg apixaban (ELIQUIS) tablet 10 mg Given 02/24/2021 8:23 EST 10 mg 10 mg, oral, 2 TIMES DAILY, First dose on 02/23/21 at 2100, Until Discontinued, Indications: deep venous thrombosis, Is this a new start or continuation of therapy? New Start, Routine Given 02/23/2021 20:22 EST 10 mg ckuibkrbvc-uhmsculxngwvw-lnduxeta (FIORICET) Given 22:23 EST 1 Capsule 50-300-40 mg per capsule 1 capsule 1 Capsule, oral, NOW X1, 1 dose, On 02/23/21 at 2230, Routine heparin in D5W 25,000 unit/250 New Bag 02/21/2021 21:16 EST 18 Units/kg/hr 18 mL/hr mL(100 unit/mL) infusion 18 Units/kg/hr ? 100.5 kg (18.09 mL/hr, rounded to 18 mL/hr), intravenous, CONTINUOUS, Starting on Gisella 02/21/21 at 2115, Until Thu02/22/21 at 0006, STAT heparin in D5W 25,000 unit/250 New Bag 02/23/2021 8:34 EST 18 Units/kg/hr 15 mL/hr mL(100 unit/mL) infusion 18 Units/kg/hr ? 82 kg Adjusted weight (14.76 mL/hr, rounded to 15 mL/hr), intravenous, CONTINUOUS, Starting on Thu02/22/21 at 0030, Until Thu02/23/21 at 2130, STAT Rate Documented 02/23/2021 7:10 EST 18 Units/kg/hr 15 mL/hr IV Rate Documented 02/23/2021 7:03 EST 18 Units/kg/hr 15 mL/hr heparin injection 8,050 Units Given 02/21/2021 21:15 EST 8,050 Units 8,050 Units (rounded from 8,040 Units = 80 Units/kg ? 100.5 kg), intravenous, NOW X1, 1 dose, On Thu02/21/21 at 2115, STAT iohexoL (OMNIPAQUE 350) solution 100 mL Given 02/21/2021 20:45 EST 100 mL 100 mL, intravenous, Once in imaging, 1 dose, Starting on Gisella 02/21/21 at 2020, Until Thu02/21/21 at 204, Routine levothyroxine (SYNTHROID) tablet 88 mcg Given 02/24/2021 6:16 EST 88 mcg 88 mcg, oral, DAILY BEFORE BREAKFAST, First dose on Thu02/22/21 at 0700, Until Discontinued, Routine Given 02/23/2021 5:50 EST 88 mcg Given 02/22/2021 6:20 EST 88 mcg melatonin tablet 3 mg Given 02/23/2021 20:22 EST 3 mg 3 mg, oral, AT BEDTIME, First dose on Thu02/22/21 at 2300, Until Discontinued, Routine Given 02/22/2021 22:49 EST 3 mg oxyCODONE (ROXICODONE) immediate release tablet 5 Given 02/24/2021 1:47 EST 5 mg mg 5 mg, oral, EVERY 4 HOURS PRN, Starting on 02/24/21 at 0135, Until 02/24/21 at 1514, Severe pain, Routine pantoprazole (PROTONIX) tablet 40 mg Given 02/24/2021 6:16 EST 40 mg 40 mg, oral, DAILY BEFORE BREAKFAST, First dose on Thu02/22/21 at 0700, Until Discontinued Given 02/23/2021 5:49 EST 40 mg Given 02/22/2021 6:21 EST 40 mg documented in this encounter Discontinued Medications Medication Sig Discontinue Reason Start Date End Date apixaban 5 mg (74 tabs) Take 10 mg by mouth 02/22/2021 02/24/2021 tablets,dose pack 2 times daily for 7 days, THEN 5 mg 2 times daily for 21 days. ibuprofen (MOTRIN) 200 mg Take 200 mg by 02/24/2021 tablet mouth every 6 hours. documented as of this encounter Active and Recently Administered Medications Times are shown in EST. Scheduled Medication Order 02/22/2021 02/23/2021 02/24/2021 apixaban (ELIQUIS) tablet 10 mg 2021 (Given - Pr ovider: Mamie Peralta RN) 0823 (Given - Provider: Roxann Sullivan RN) 10 mg, oral, 2 TIMES DAILY, First dose o n 02/23/21 at 2100, Until Discontinued, Indications: deep venous thrombosis, Is this a new start or continuation of therapy? New Start, Routine oytiwzcfxf-phjrwwrsjbeft-hxuddhch (JONATHAN CET) 50-300-40 mg per capsule 1 capsule (COMPLETED) 2222 (Given - Provider: Mamie Peralta RN) 1 capsule, oral, NOW X1, 1 dose, On 02/23/21 at 2230, Routin e levothyroxine (SYNTHROID) tablet 88 mcg 0620 (Given - Provider: Carlyn Malave RN) 0550 (Given - Provider: Enid Bob, JOSE ELIAS) 0616 (Given - Provider: Mamie Peralta RN) 88 mcg, oral, DAILY BEFORE BREAKFAST, Fi rst dose on Thu02/22/21 at 0700, Until Discontinued, Routine melatonin tablet 3 mg 2248 (Given - Provider: Enid Bob RN) 2021 (Given - Provider: Mamie Peralta RN) 3 mg, oral, AT BEDTIME, First dose on Fr i 02/22/21 at 2300, Until Discontinued, Routine pantoprazole (PROTONIX) tablet 40 mg 0621 (Given - Pro vider: Carlyn Malave RN) 0549 (Given - Provider: Enid Bob RN) 0616 (Given - Provider: Mamie Peralta RN) 40 mg, oral, DAILY BEFORE BREAKFAST, Fir st dose on Thu02/22/21 at 0700, Until Discontinued Continuous Medication Order 02/22/2021 02/23/2021 02/24/2021 heparin in D5W 25,000 unit/250 mL(100 unit/mL) infusio n () 0043 (New Bag - Provider: Carlyn Malave RN)0715 (Rate Documented - Provider: Jaz Stuart RN)1310 (Canceled Entry - Provider: Jaz Stuart RN)1404 (New Bag - Provider: Jaz Stuart RN)1930 (Rate Documented - Provider: Enid Bob RN) 0703 (Rate Documented - Provider: Enid Bob RN - Comment: UFH 0.39, no rate change)0710 (Rate Documented - Provider: Jaz Stuart RN)0834 (New Bag - Provider: Jaz tSuart RN) 18 Units/kg/hr ? 82 kg Adjusted weight (14.76 mL/hr, rounded to 15 mL/hr), intravenous, at 15 mL/hr, CONTINUOUS, Starting on Thu02/22/21 at 0030, Until 02/23/21 at 2130, STAT 2051 (Infusion Stopped - Pro vider: Mamie Peralta RN - Comment: per MD - stop heparin infusion 30min after first PO eliquis dose) PRN Medication Order 02/22/2021 02/23/2021 02/24/2021 acetaminophen (TYLENOL) tablet 650 mg 0038 (Given - Pr ovider: Carlyn Malave RN)06 (Given - Provider: Carlyn Malave RN)1413 (Given - Provider: Jaz Stuart RN)2020 (Given - Provider: Enid Bob RN) 021 (Given - Provider: Enid Bob RN)0827 (Given - Provider: Jaz Stuart RN - Comment: Headache/BLE soreness)2021 (Given - Provider: Mamie Peralta RN) 0616 (Given - Provider: Mamie Peralta RN) 650 mg, oral, EVERY 6 HOURS PRN, Startin g on Thu02/22/21 at 0005, Until 02/24/21 at 1514, Pain, Fever, Mild Pain 1-3, Moderate Pain 4-6, Routine lidocaine 1 % injection 2 mg 2 mg, intradermal, PRN, 4 doses, Startin g on Thu02/22/21 at 0005, Until 02/24/21 at 1514, Other, peripheral intravenous catheter placement, Routine oxyCODONE (ROXICODONE) immediate release tablet 5 mg 0147 (Given - Provider: Mamie Peralta RN) 5 mg, oral, EVERY 4 HOURS PRN, Starting on 02/24/21 at 0135, Until 02/24/21 at 1514, Severe pain, Routine documented in this encounter Orders Medications Ordered That Might Not Have Count Last Ord ered Date First Ordered Date Been Administered heparin injection 3,300 Units 1 02/22/2021 heparin injection 6,550 Units 1 02/22/2021 lidocaine 1 % injection 2 mg 1 02/22/2021 heparin injection 4,000 Units 1 02/21/2021 heparin injection 8,050 Units 1 02/21/2021 Diet Count Last Ordered Date First Ordered Date DISCHARGE DIET 1 02/24/2021 Nursing Count Last Ordered Date First Ordered Date ACTIVITY INSTRUCTIONS 1 02/24/2021 BATHING INSTRUCTIONS 1 02/24/2021 DRIVING INSTRUCTIONS 1 02/24/2021 VTE PHARMACOLOGIC PROPHYLAXIS CURRENTLY 1 02/23/20 21 ORDERED OR ON ALTERNATIVE THER CALL HOSPITALIST FOR ADM/REFLEX TO [facility] 1 2020 NURSE CALL TRANSFER CENTER [facility] 1 02/21/2021 Admission Count Last Ordered Date First Ordered Date ADMIT TO INPATIENT 1 02/21/2021 Transfer Count Last Ordered Date First Ordered Date ED BED REQUEST 1 02/21/2021 Discharge Count Last Ordered Date First Ordered Date DISCHARGE PATIENT 1 02/24/2021 Legal Count Last Ordered Date First Ordered Date MISCELLANEOUS DISCHARGE INSTRUCTIONS 2 02/24/2021 documented in this encounter Additional Health Concerns Infection Onset Date Last Indicated Resolved Time R/O COVID-19Comment: Negative test 02/21/2021 02/21/2021 02/22/2021 0:14 EST documented as of this encounter 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
--- OUTSIDE RECORDS SUMMARY | 2022-01-27 16:01 | XMS_ITS | Encounter Summary ---
:1960 Author Organization [facility] Address [address] [place] [address] Care Team Providers Name Role Phone Farhan Moss MD Primary Care Provider Reason for Visit Reason Comments Hip Pain Patient has been having left hip pain for the past 2 weeks. He was discharged 3d ago after havi ng surgery at [facility] for extensive blood clots in his legs and pelvis. He dene is fall or injury. Encounter Details Date Type Department Care Team Description 03/25/2021 Emergency [facility] - Agustin Villanueva MD Left buttock pain [facility] Emergency [address] [facility] (Primary Dx) Department [place], [place] [address] [address] [place], [place] [id number] Social History Tobacco Use Types Packs/Day Years [...] EST Inhaled Oxygen Concentration - - Weight 95.3 kg (210 lb) 03/25/2021 0826 EST Height - - Body Mass Index 31.46 02/23/2021 0700 EST documented in this encounter [...] older) documented as of this encounter Discharge Instructions Discharge InstructionsMoCamacho alvarez MD - 03/25/2021 11:44 EST You were seen in the ED for pain in your left hip and buttock area. Your CT scan did not show any concerning findings. It is possible your pain is due to a nerve in your low back. Take Tylenol 500 to 1000 mg every 6 hours as needed for pain. Take tramadol as directed in addition to Tylenol for severe pain. This medication causes constipation so use a stool softener as needed. Follow-up with your PCP as soon as possible. Return to the ED for any worsening symptoms, especiallyuncontrolled pain, fever or weakness in your leg. documented in this encounter Medications at Time of [...] 20 mg by mouth 0 capsule daily. oxyCODONE (ROXICODONE) 5 mg Take 5 mg by mouth 0 immediate release tablet every 4 hours as needed for Pain. traMADol (ULTRAM) 50 mg Take 50 mg by mouth 0 tablet every 6 hours as needed for Pain. traMADol (ULTRAM) 50 mg Take 1 Tablet by 10 Tablet 0 2021 tablet mouth every 6 hours as needed for Pain. Daily Max: 200 mg documented as of this encounter Ordered Prescriptions Prescription Sig Dispensed Refills Start Date End Date traMADol (ULTRAM) 50 mg Take 1 Tablet by 10 Tablet 0 2021 tablet mouth every 6 hours as needed for Pain. Daily Max: 200 mg documented in this encounter Discharge Disposition Disposition Code Departure Means Destination Home or Self Penitentiary documented in this encounter ED Notes Camacho Villanueva MD - 03/25/2021 0837 EST Emergency Department Visit Assessment and ED Course 60 y.o. male who presents to the ED for left hip pain. 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 On exam his pain is primarily in the left buttock area. There is no numbness or weakness of the legs and his distal pulses are intact. Swelling has improved significantly since his procedure. A CT of the pelvis with contrast was performed to assess for complications from the procedure such as bleeding or infection. This does not show an obvious source of pain in the buttock area. Labs are reassuring. His hemoglobin of 9.6 is improved since discharge from [facility]. I think his pain is most likely a lumbar radiculopathy. No indication for emergent MRI today but this could be helpful in the future if not improving. He will continue using tramadol at home and I prescribed 10 more tablets of this. He will follow up with his PCP. Final diagnoses: Left buttock pain Disposition: Discharged Chief complaint: left hip pain HPI Zander Waldron is a 60 y.o. male who presents to the ED for left hip pain. 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 He underwent thrombectomy and venous stenting of the right leg and required fasciotomies. There was also thrombectomy performed for the left leg. Patient states that while he was in the hospital at [facility] he began having pain in the left hip and buttock area. He is not sure if the pain started before or after his procedures. Since arriving home the pain is worsened. It is particularly bothersome when he tries to stand. He has been taking tramadol and Tylenol as well as putting ice on the buttock area. There is no radiation of pain down his leg, no numbness or weakness, no loss of bowel or bladder control. No fever. The swelling in his legs is improved. History was provided by: Patient Patient's pertinent PMH, FH, SH were reviewed and edited as necessary. Review of Systems Constitutional: Negative for chills and fever. HENT: Negative for congestion. Eyes: Negative for redness. Respiratory: Negative for shortness of breath. Cardiovascular: Positive for leg swelling. Negative for chest pain. Gastrointestinal: Negative for abdominal pain, nausea and vomiting. Genitourinary: Negative for dysuria. Musculoskeletal: Negative for neck pain. Skin: Negative for rash. Neurological: Negative for speech change. Psychiatric/Behavioral: Negative for hallucinations. Physical Exam BP 109/82 Pulse 89 Temp 36.5 ??C (97.7 ??F) (Oral) Resp 16 Wt 95.3 kg (210 lb) SpO2 96% BMI 31.46 kg/m?? A medical screening exam was performed. Physical Exam Vitals and nursing note reviewed. Constitutional: General: He is not in acute distress. Appearance: He is well-developed and well-nourished. HENT: Nose: Nose normal. No nasal discharge. Mouth/Throat: Mouth: Mucous membranes are moist. Pharynx: Oropharynx is clear. Eyes: Extraocular Movements: EOM normal. Conjunctiva/sclera: Conjunctivae normal. Pupils: Pupils are equal, round, and reactive to light. Cardiovascular: Rate and Rhythm: Normal rate and regular rhythm. Heart sounds: Normal heart sounds. Comments: There is mild swelling and faint ecchymosis of the proximal left thigh. Distally, no edema of the lower legs. Palpable DP and PT pulses bilaterally. Pulmonary: Effort: Pulmonary effort is normal. No respiratory distress. Breath sounds: Normal breath sounds. Abdominal: General: Bowel sounds are normal. Palpations: Abdomen is soft. Tenderness: There is no abdominal tenderness. Musculoskeletal: General: Normal range of motion. Cervical back: Normal range of motion and neck supple. Skin: General: Skin is warm and dry. Neurological: Mental Status: He is alert and oriented to person, place, and time. Cranial Nerves: No cranial nerve deficit. Psychiatric: Mood and Affect: Mood and affect normal. Imaging obtained was reviewed and independently interpreted. Laboratory results independently reviewed. Procedures Procedures documented in this encounter Plan of Treatment Not on filedocumented as of this encounter Procedures Procedure Name Priority Date/Time Associated Comments Diagnosis CT PELVIS W CONTRAST STAT 03/25/2021 10:21 Res ults for this EST procedure are i n the results section. HOLD GREEN TOP Routine 03/25/2021 9:29 Results fo r this EST procedure are i n the results section. COMPLETE BLOOD COUNT STAT 03/25/2021 9:29 Resu lts for this AND DIFFERENTIAL EST procedure a re in the results section. C REACTIVE PROTEIN STAT 03/25/2021 9:29 Result s for this EST procedure are i n the results section. COMPREHENSIVE STAT 03/25/2021 9:29 Results for this METABOLIC PANEL (CMP) EST proced ure are in the results section. documented in this encounter Results CT PELVIS W CONTRAST (03/25/2021 10:21 EST) Anatomical Region Laterality Modality Body, Pelvis Computed Tomography Specimen (Source) Anatomical Collection Method Collection Time Re ceived Time Location / / Volume Laterality 03/25/2021 10:53 EST Impressions 03/25/2021 10:53 EST 1. Interval placement of bilateral IVC a nd iliac vein stents. Due to the timing of the acquisition, the venous structures are only minimally enhanced, severely limiting assessment. There is possible res idual or recurrent thrombus within the l eft external iliac, common femoral, superficial femoral and profunda femoris veins and there is suspected thrombus within both hypogastric veins. Further imaging assessment could be performed with lower extremity DVT as well as dedicated angiogram. Recommend interventional radiology or vascular surgery follow up. 2. Trace gas within the urinary bladder. Please correlate for prior instrumentation or possible infection. Narrative 03/25/2021 10:53 EST INDICATION: left hip/buttock/sacral pain, recent iliac/femoral vein thrombectomy TECHNIQUE: ??Axial noncontrast CT of the pelvis was performed after the administration of intravenous contrast. COMPARISON: CT abdomen pelvis 02/21/2021 FINDINGS: Vascular findings: There is been interval placement of bila teral iliac vein and IVC stents, incompletely included in the imaging [id number]. Due to the timing of the acquisition, the venous structures are only minimall y enhanced, severely limiting assessment for residual or recurrent thrombus. There may be thrombus in the dilated left external iliac vein distal to the stent as well as in the left common femoral, supe rficial femoral and profunda femoris vei ns. There are mild asymmetric fat stranding is noted around the left common femoral, superficial femoral and profundus femoris veins. There is also suspected thro mbus within both hypogastric veins. Righ t common iliac/external iliac thrombus cannot be excluded. There is subcutaneous edema and skin thickening within the soft tissues of the thighs bilaterally, left greater than right. The arteries appear normal. Nonvascular findings: Left renal parapelvic cysts are partiall y included in the imaging [id number]. There is no bowel obstruction or focal bowel wall thickening. No pelvic lymphadenopathy is detected. Trace gas is noted within the urinary bladder. No acute osseous abnormality is identifi ed. There is mild bilateral hip arthrosis, right greater than left. Lower lumbar facet arthrosis is present. The muscles of the pelvis and proximal thighs appear normal. Procedure Note Michael Sullivan MD - 03/25/2021Fo rmatting of this note might be different from the original. INDICATION: left hip/buttock/sacral pain , recent iliac/femoral vein thrombectomy TECHNIQUE: Axial noncontrast CT of the p shirin was performed after the administration of intravenous contrast. COMPARISON: CT abdomen pelvis 02/21/2021 FINDINGS: Vascular findings: There is been interval placement of bila teral iliac vein and IVC stents, incompletely included in the imaging [id number]. Due to the timing of the acquisition, the venous structures are only minimally enhanced, severely limiting assessment for residua l or recurrent thrombus. There may be thrombus in the dilated left external iliac vein distal to the stent as well as in the left common femoral, superficial femoral and profunda femoris veins. There are mild asymmetric fat stranding is noted around the left common femoral, superficial femoral and profundus femoris veins. There is also suspected thrombus within both hypogastric veins. Right common iliac/external iliac thrombus can not be excluded. There is subcutaneous edema and skin thickening within the soft tissues of the thighs bilaterally, left greater than right. The arteries appear normal. Nonvascular findings: Left renal parapelvic cysts are partiall y included in the imaging [id number]. There is no bowel obstruction or focal bowel wall thickening. No pelvic lymphadenopathy is detected. Trace gas is noted within the urinary bladder. No acute osseous abnormality is identifi ed. There is mild bilateral hip arthrosis, right greater than left. Lower lumbar facet arthrosis is present. The muscles of the pelvis and proximal thighs appear normal. IMPRESSION 1. Interval placement of bilateral IVC a nd iliac vein stents. Due to the timing of the acquisition, the venous structures are only minimally enhanced, severely limiting assessment. There is possible residual or recurrent thrombus within the left exter nal iliac, common femoral, superficial femoral and profunda femoris veins and there is suspected thrombus within both hypogastric veins. Further imaging assessment could be performed with lower extremity DVT as well as dedicated angiogram. Recommend interventional radiology or vascular surgery follow up. 2. Trace gas within the urinary bladder. Please correlate for prior instrumentation or possible infection. Camacho Villanueva MD IM CT ORDERABLES HOLD GREEN TOP (03/25/2021 9:29 EST) athologist Signature Hold Hold 03/25/2021 [facility] 10:47 EST [facility] Specimen Anatomical Collection Method / Collection Time Recei jas Time (Source) Location / Volume Laterality Blood VENOUS BLOOD / Venipuncture / 03/25/2021 9:29 03/25/19 22 9:32 Unknown Unknown EST EST Camacho Villanueva MD LAB INFO SERVICE AND SUPPORT & PHONE RESULT Performing Organization Address City/State/ZIP Code Phon e Number [facility] [address] [place] [address] (ABNORMAL) C REACTIVE PROTEIN (03/25/2021 9:29 EST) athologist Signature C-Reactive 28.6 (H) <10.0 mg/L 03/25/2021 [facility] Protein 10:12 EST [facility] Specimen Anatomical Collection Method / Collection Time Recei jas Time (Source) Location / Volume Laterality Blood VENOUS BLOOD / Venipuncture / 03/25/2021 9:29 03/25/19 22 9:32 Unknown Unknown [facility] Camacho Villanueva MD CHEMISTRY & BLOOD GAS ORDERA BLES Performing Organization Address City/State/ZIP Code Phon e Number [facility] [address] [place] [address] (ABNORMAL) COMPREHENSIVE METABOLIC PANEL (CMP) (03/25/2021 9:29 EST) [facility] Method Time Signature Sodium 136 136 - 145 03/25/2021 [facility] mmol/L 10:12 [facility] Potassium 4.7 3.5 - 5.0 03/25/2021 [facility] mmol/L 10:12 [facility] Chloride 98 96 - 110 03/25/2021 [facility] mmol/L 10:12 [facility] CO2 Total 31 22 - 32 03/25/2021 [facility] mmol/L 10:12 [facility] Glucose 96 70 - 100 03/25/2021 [facility] mg/dL 10:12 [facility] BUN 15 10 - 26 03/25/2021 [facility] mg/dL 10:12 [facility] Creatinine 0.59 (L) 0.66 - 03/25/2021 [facility] 1.25 mg/dL 10:12 [facility] eGFR 109 >60 03/25/2021 [facility] mL/min/1.7 10:[address] LAB Total Protein 7.3 6.3 - 8.2 03/25/2021 [facility] g/dL 10:12 [facility] Albumin 3.9 3.4 - 4.9 03/25/2021 [facility] g/dL 10:12 [facility] Alkaline 90 38 - 126 03/25/2021 [facility] Phosphatase U/L 10:12 [facility] AST 32 15 - 46 03/25/2021 [facility] U/L 10:12 [facility] ALT 46 <50 U/L 03/25/2021 [facility] 10:12 [facility] Bilirubin, Total 0.4 <1.4 mg/dL 03/25/2021 [facility] 10:12 [facility] Calcium 9.0 8.5 - 10.5 03/25/2021 [facility] mg/dL 10:12 [facility] Albumin/Globulin 1.1 1.0 - 2.5 03/25/2021 [facility] Ratio 10:12 [facility] Anion Gap 7 (L) 8 - 16 03/25/2021 [facility] 10:12 [facility] Specimen Anatomical Collection Method / Collection Time Recei jas Time (Source) Location / Volume Laterality Blood VENOUS BLOOD / Venipuncture / 03/25/2021 9:29 03/25/19 22 9:32 Unknown Unknown [facility] Camacho Villanueva MD CHEMISTRY & BLOOD GAS ORDERA BLES Performing Organization Address City/State/ZIP Code Phon e Number [facility] [address] [place] [address] (ABNORMAL) COMPLETE BLOOD COUNT AND DIFFERENTIAL (03/25/2021 9:29 EST) [facility] gist Method Time Signature WBC 8.60 4.00 - 03/25/2021 [facility] 10.40 9:35 [facility] K/cmm [facility] RBC 3.31 (L) 4.36 - 03/25/2021 [facility] 5.78 M/cmm 9:35 [facility] Hemoglobin 9.6 (L) 13.8 - 03/25/2021 [facility] 17.3 gm/dL 9:35 [facility] HCT 30.4 (L) 39.5 - 03/25/2021 [facility] 50.2 % 9:35 [facility] MCV 92 81 - 95 fl 03/25/2021 [facility] 9:35 [facility] MCH 29.0 27.6 - 03/25/2021 [facility] 33.0 pg 9:35 [facility] MCHC 31.6 (L) 32.8 - 03/25/2021 [facility] 36.4 gm/dL 9:35 [facility] RDW-CV 13.7 <14.2 % 03/25/2021 [facility] 9:35 [facility] RDW-SD 46.2 (H) <46.0 fl 03/25/2021 [facility] 9:35 [facility] PLT 656 (H) 141 - 377 03/25/2021 [facility] K/cmm 9:35 [facility] MPV 8.5 (L) 9.5 - 12.7 03/25/2021 [facility] fl 9:35 [facility] Neutrophils 69.1 % 03/25/2021 [facility] 9:35 [facility] Lymphocytes 18.1 % 03/25/2021 [facility] 9:35 [facility] Monocytes 9.1 % 03/25/2021 [facility] 9:35 [facility] Eosinophils 2.4 % 03/25/2021 [facility] 9:35 [facility] Basophils 0.6 % 03/25/2021 [facility] 9:35 [facility] Immature Grans 0.7 % 03/25/2021 [facility] 9:35 [facility] Absolute 5.94 2.20 - 03/25/2021 [facility] Neutrophils 8.85 K/cmm 9:35 [facility] Absolute 1.56 1.09 - 03/25/2021 [facility] Lymphocytes 3.30 K/cmm 9:35 [facility] Absolute 0.78 0.10 - 03/25/2021 [facility] Monocytes 0.80 K/cmm 9:35 [facility] Absolute 0.21 0.03 - 03/25/2021 [facility] Eosinophils 0.61 K/cmm 9:35 [facility] Absolute 0.05 0.01 - 03/25/2021 [facility] Basophils 0.11 K/cmm 9:35 [facility] Absolute 0.06 0.00 - 03/25/2021 [facility] Immature Grans 0.06 K/cmm 9:35 [facility] Type of Auto 03/25/2021 [facility] Differential: 9:35 [facility] Specimen Anatomical Collection Method / Collection Time Recei jas Time (Source) Location / Volume Laterality Blood VENOUS BLOOD / Venipuncture / 03/25/2021 9:29 03/25/19 22 9:32 Unknown Unknown [facility] Camacho Villanueva MD PACKAGES & DNA PROBE ORDERAB LES Performing Organization Address City/State/ZIP Code Phon e Number [facility] [address] [place] [address] documented in this encounter Visit Diagnoses Diagnosis Left buttock pain - Primary Mylagia and myositis, unspecified documented in this encounter Administered Medications Inactive Administered Medications - up to 3 most recent administrations Medication Order MAR Action Action Date Dose Rate Site iohexoL (OMNIPAQUE 350) solution 100 Given 03/25/2021 10:22 EST 100 mL mL 100 mL, intravenous, Once in imaging, 1 dose, Starting on Thu03/25/21 at 1021, Until Thu03/25/21 at 1022, Routine traMADol (ULTRAM) tablet 50 mg Given 03/25/2021 9:30 EST 50 mg 50 mg, oral, NOW X1, 1 dose, On Thu03/25/21 at 0930, STAT documented in this encounter Historical Medications This list may reflect changes made after this encounter. Medication Sig Dispensed Refills Start Date End Date oxyCODONE (ROXICODONE) 5 Take 5 mg by mouth 0 mg immediate release every 4 hours as tablet needed for Pain. traMADol (ULTRAM) 50 mg Take 50 mg by mouth 0 tablet every 6 hours as needed for Pain. added in this encounter Active and Recently Administered Medications Times are shown in EST. Scheduled Medication Order 03/23/2021 03/24/2021 03/25/2021 iohexoL (OMNIPAQUE 350) solution 100 mL (COMPLETED) 1022 (Given - Provider: Shreyas Graf) 100 mL, intravenous, Once in imaging, 1 dose, Starting on Thu03/25/21 at 1021, Until Thu03/25/21 at 1022, Routine traMADol (ULTRAM) tablet 50 mg (COMPLETED) 0930 (Given - Provider: Gifty Bardales LPN) 50 mg, oral, NOW X1, 1 dose, On Thu03/25/21 at 0930, STAT documented in this encounter Care Teams Cloud Systems Administrator Relationship Specialty Start Date End Date Farhan Moss MD PCP - General Emergency Medicine 03/25/[address] [place] [address] documented as of this encounter
--- OUTSIDE RECORDS SUMMARY | 2022-01-27 16:02 | XMS_ITS | Encounter Summary ---
:1960 Author Organization [facility] [place] [address] Care Team Providers Name Role Phone Farhan Moss MD Primary Care Provider Reason for Visit Reason Comments Follow-up Encounter Details Date Type Department Care Team Description 06/28/2021 Office Visit Hematology and Natacha Velásquez Acute de ep vein thrombosis (DVT) of both lower extremities, unspecified vein; [place] [facility] [place] Shan Anticoagulated by anticoagulation treatm ent [facility] HEMATOLOGY/[facility] [id number] G[place] DEPT. [phone] [place], [place] [address] Social History Tobacco Use Types Packs/Day Years Used Date Smoking Tobacco: Former Smokeless Tobacco: Never Alcohol Use Standard Drinks/Week Comments Not Currently 0 (1 standard drink = 0.6 oz pure alcoho l) about once a month Sex Assigned at Date Recorded Not on file documented as of this encounter Last Filed Vital Signs Vital Sign Reading Time Taken Comments Blood Pressure 125/88 06/28/2021 11:13 AM EDT Pulse 74 06/28/2021 11:13 AM EDT Temperature 36.4 ??C (97.5 ??F) 06/28/2021 11:13 AM EDT Respiratory Rate 18 06/28/2021 11:13 AM EDT Oxygen Saturation 98% 06/28/2021 11:13 AM EDT Inhaled Oxygen Concentration - - Weight 94.2 kg (207 lb 10.8 oz) 06/28/2021 11:13 AM EDT Height 172 cm (5' 7.72) 06/28/2021 11:13 AM EDT Body Mass Index 31.84 06/28/2021 11:13 AM EDT documented in this encounter Progress Notes Natacha Velásquez MD - 06/28/2021 11:00 AM EDT Images from the original note were not included. [facility] [place] [id number] THROMBOSIS FOLLOW UP DATE OF VISIT 06/28/2021 Patient Zander Waldron 1960 PRIMARY CARE PHYSICIAN Farhan Moss MD REASON FOR FOLLOW UP Review thrombophilia screening test results, anticoagulation recommendations HISTORY OF THE PRESENT ILLNESS Zander Waldron is a 60 y.o. man with bilateral DVTs, who is seen in follow up to review the results of thrombophilia screening. Jun was enjoying his usual state of excellent health until the day before (02-21-2021) when he developed spontaneous bilateral leg swelling and pain. He presented to [facility] in [facility] where a CT scan showed thrombosis in both iliac veins and the IVC. He was admitted and treated with heparin followed by apixaban. He was discharged on 02-24 and did well with some improvement in leg swelling over the next couple of weeks. He had previously been scheduled for screening EGD (GERD) and colonoscopy (history of polyps) on 03-11 and was instructed to keep those appointments and hold his apixaban for three days prior (stop Thursday for Thursday procedure), which he did. He got through the procedures and went home, doing well until that evening when he awoke with acute onset of right leg pain, numbness and tingling associated with blue discoloration from hip to toes. 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 Hewas discharged on apixaban and remains on apixaban to current day, doing remarkably well. He had no pulmonary symptoms and chest imaging showed no PE. He can think of no specific trigger for the event, including no injury, medical illness, surgery, hospitalization or long haul travel. He tested negative for COVID19 when he was admitted to [facility] the first time but had a positive home rapid COVID test when he got home from the hospital, associated withsome mild symptoms of myalgias and altered taste, from which he's fully recovered. There is no known family history of VTE, but he's not close enough to family members to know for sure. INTERVAL HISTORY In the office today he reports continuing to feel quite well and feels ready to get back to work. 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 He has full use of both legs along with minimal swelling and minimal pain, though he notes some tenderness on the bottom of his feet and some numbness and tingling in his right thigh. He's had no bleeding problems with the apixaban and no problem taking the twice a day medication. He has chronic low back pain that predatesthe DVTs and has been recommended to have what sounds like a corticosteroid injection, which is somewhere in the planning stages. PAST MEDICAL HISTORY 1. Venous thromboembolism, -2020, as above Bilateral DVTs, -2020 Rx apixaban Progression after apixaban hiatus 03-11-2021 Rx thrombectomy, venous stenting, fasciotomy, IVC filter, heparin --> apixaban to current day Patient Active Problem List Diagnosis ??? DVT (deep venous thrombosis) ??? IVC (inferior vena cava obstruction) ??? Diverticular disease of colon ??? Acquired hypothyroidism ??? Acute bilateral deep vein thrombosis (DVT) of iliac veins of lower extremities ??? DVT, lower extremity, proximal, acute, bilateral ??? Gastroesophageal reflux disease without esophagitis ??? IVC thrombosis ??? TMJ dysfunction OPERATIVE PROCEDURES Past Surgical History: Procedure Laterality Date ??? PRO COLONOSCOPY, BIOPSY N/A 05/07/2020 COLONOSCOPY FLEXIBLE, WITH BX (WRVU 3.66) performed by Rc Carrasquillo MD at [facility] ENDOSCOPY ??? PRO COLONOSCOPY, DIAGNOSTIC N/A 03/11/2021 COLONOSCOPY, DIAGNOSTIC performed by Titi Stroud MD at [facility] ENDOSCOPY ??? PRO COLONOSCOPY, FLEX, W/DIR SUBMUC INJECT N/A 05/07/2020 COLONOSCOPY WITH DIRECTED SUBMUCOSAL INJ (WRVU 3.66) performed by Rc Carrasquillo MD at [facility] ENDOSCOPY ??? PRO COLONOSCOPY, REMV LESN, SNARE N/A 12/11/2016 COLONOSCOPY, POLYPECTOMY, REMOVAL LESION BY SNARE (WRVU 4.67) performed by Jewels Wilkerson MD at [facility] END[facility]COPY ??? PRO COLONOSCOPY, REMV LESN, SNARE N/A 05/07/2020 COLONOSCOPY, POLYPECTOMY, REMOVAL LESION BY SNARE (WRVU 4.67) performed by Rc Carrasquillo MD at [facility] ENDOSCOPY ? ? PRO DEBRIDEMENT MUSCLE AND FASCIA 20 SQ CM/< Right 03/14/2021 DEBRIDEMENT SKIN, SUBCU, MUSCLE, LOWER EXTREMITY (WRVU 2.7) performed by Deonte De Los Santos MD at [facility] MAIN OR ? ? PRO DEBRIDEMENT SUBCUTANEOUS TISSUE 20 SQCM/< Right 03/18/2021 DEBRIDEMENT SKIN AND SUBCU, LOWER EXTREMITY (WRVU 1.01) performed by Lukasz Patterson MD at [facility] MAIN OR ??? PRO DECOMPRESS ANT/LAT+POST LEG CMPART Right 03/12/2021 FASCIOTOMY, LOWER LEG, ALL COMPARTMENTS -TIFFANY (WRVU 7.82) [facility] ??? PRO HEMORRHOIDECTOMY, INT/EXT, COMPLX N/A 10/28/2016 HEMORRHOIDECTOMY, INTERNAL & EXTERNAL, COMPLEX (WRVU 6.73) performed by Matt Sullivan MDat [facility] OSC ? ? PRO INSERT VENA CAVA FILTER W/WO VASCULAR ACCESS AND RAD S&I N/A 03/12/2021 INSERT INTRAVASC VENA CAVA FILTER, ENDOVASCR APPR, WHEN PERFORMED (WRVU 4.71) performed by Steven Rodríguez MD at [facility] MAIN OR ??? PRO REMV VEIN CLOT CAVA-ILIAC, LEG INCIS Right 03/12/2021 THROMBECTOMY, VENA CAVA, ILIAC, FEMOROPOPLITEAL VEIN BY LEG INCISION (WRVU 13.37) performed by Steven Rodríguez MD at [facility] MAIN OR ??? PRO UPPER GI ENDOSCOPY, BIOPSY N/A 03/11/2021 EGD WITH BIOPSY (WRVU 2.49) performed by Titi Stroud MD at [facility] ENDOSCOPY ??? PRO UPPER GI ENDOSCOPY, DIAGNOSTIC N/A 05/07/2020 EGD, UPPER GI ENDOSCOPY performed by Rc Carrasquillo MD at [facility] ENDOSCOPY MEDICATIONS Current Outpatient Medications on File Prior to Visit Medication Sig Dispense Refill ??? apixaban (Eliquis) 5 mg Tablet Take 5 mg by mouth 2 times daily. ??? levothyroxine (SYNTHROID) 88 mcg Tablet Take 88 mcg by mouth daily. ??? omeprazole (PRILOSEC) 20 mg Capsule, Delayed Release(E.C.) Take 20 mg by mouth daily. ??? acetaminophen (Tylenol) 325 mg Tablet Take 650 mg by mouth every 6 hours as needed for Pain. No current facility-administered medications on file prior to visit. ADVERSE DRUG REACTIONS Allergies as of 06/28/2021 ??? (No Known Allergies) FAMILY HISTORY No known VTE SOCIAL HISTORY to Karlie, they are originally from [place] but moved to [facility] in the They met in bible study group Jun works as a contractor Three adult children and many grandchildren who live locally Nonsmoker Rare alcohol REVIEW OF SYSTEMS Fevers/chills/sweats No Recent infections No Unexplained weight loss No Headache/lightheadedness/syncope No Sinus pain/pressure No Oral sores/lesions/bleeding No Sore throat/dysphagia No Nosebleeds No Cough/SOB/chest pain/heart racing No Nausea/vomiting/dyspepsia No Abdominal pain No Diarrhea/constipation No Urinary pain, burning, incontinence No Hematuria No Penile discharge/bleeding No Skin rashes/ulcers No Back/joint pain/swelling Back pain Leg swelling/pain/redness Mild swelling Bruising/petechiae/bleeding/melena No Sensory/motor No Polydipsia/polyuria/heat/cold intol No Lumps/bumps/swollen glands No Other Negative except as above PHYSICAL EXAMINATION BP 125/88 (Patient Position: Sitting) Pulse 74 Temp 36.4 ??C (97.5 ??F) (Temporal) Resp 18 Ht 172 cm (5' 7.72) Wt 94.2 kg (207 lb 10.8 oz) SpO2 98% BMI 31.84 kg/m?? GENERAL: Well-appearing, articulate white male. LABORATORY STUDIES RADIOGRAPHIC STUDIES I have personally reviewed images from the following studies where available: CT abdomen/pelvis, 02-21-2021 at [facility] FINDINGS: Lungs: The visualized lung bases appear [...] 5. Multiple bilateral simple parapelvic renal cysts. EGD, 03-11-2021, [facility] Findings: ?The Z-line was irregular and was found 35 cm from the ?incisors. Biopsies were taken with a cold forceps for ?histology. ?A 5 cm hiatal hernia was present. ?A few 2 to 5 mm sessile polyps were found in the ?gastric body. ?The examined duodenum was normal. Colonoscopy, 03-11-2021, [facility] Impression: ?- Diverticulosis in the sigmoid colon??and in the descending colon. ??- No recurrent polyp at sigmoid colon diverticulum or in the rectum. CTPA, 03-12-2021, [facility] IMPRESSION ?? 1. No CT angiographic evidence of pulmonary thromboembolism. 2. Focal stenosis of the infrarenal inferior vena cava with occlusive thrombus throughout the infrarenal inferior vena cava and bilateral common iliac, internal iliac, and external iliac veins as well as the right common femoral vein. The thrombus within the right internal, external iliac and common femoral veins is new. 3. Thrombus extends into a prominent left lumbar vein, presumably collateral venous drainage secondary to stenosis of the infrarenal IVC. 4. Where visualized, patent bilateral superficial femoral and profundus femoral veins. 5. Prominent collateral venous drainage including paraspinal veins, venous plexus of the lumbar ventral thecal sac, and engorgement of the azygos / hemiazygos veins. 6. Edematous changes throughout the retroperitoneum extending into the pelvis, likely related to venous congestion due to thrombus. 7. Unexpected Finding: Irregular soft tissue thickening and nodularity at the gastroesophageal junction extending of the distal esophagus, concerning for underlying neoplasm. Gastroenterology consultation is recommended. 8. Dependent atelectasis bilaterally. Focal 22 mm region of nodular consolidation within the dependent atelectasis, favored to represent more focal atelectasis but does remain indeterminate. Follow-up CT of the chest, possibly in 6-12 weeks, is recommended to ensure stability or resolution. Prone imaging may be of benefit. 9. 14 mm left upper lobe groundglass nodule. This can be further evaluated the time of follow-up CT of the chest. Venous duplex, right leg 03-12-2021, [facility] Findings: ?? RIGHT: Occlusive deep vein thrombosis in the common femoral vein, saphenofemoral junction, popliteal vein, tibioperoneal trunk vein, profunda femoris vein, and one of the paired peroneal veins. ?? Non-occlusive deep vein thrombosis in the femoral vein through the thigh, posterior tibial veins, and one of the paired peroneal veins. ?? Occlusive superficial vein thrombosis throughout the great saphenous vein. ? Patent LEFT common femoral vein with spontaneous, respirophasic Doppler waveforms that respond normally to augmentation maneuvers. ?? Interpretation: ?? RIGHT: Extensive acute deep vein thrombosis throughout the right lower extremity. Acute occlusive superficial vein thrombosis in the great saphenous vein. ?? Venous duplex, IVC, bilateral legs, 06-04-2021 Interpretation: ? Patent stented inferior vena cava with no direct evidence of thrombus. Flow is somewhat reduced in respirophasicity. Patent stented bilateral common and external iliac veins with no direct evidence of thrombus. Flow throughout is somewhat reduced in respirophasicity. No identifiable change when compared to the previous exam done 05/03/2021. Findings: ?? RIGHT: Patent common femoral vein and popliteal vein with spontaneous, respirophasic Doppler waveforms that respond normally to augmentation maneuvers. The common femoral vein, saphenofemoral junction, femoral vein through the thigh and popliteal vein are fully compressible. Patent posterior tibial and peroneal veins with no evidence of thrombus. ?? LEFT: There is a small amount of focal non occlusive thrombus in the femoral and profunda femoris veins proximal thigh. ?? Patent common femoral vein and popliteal vein with spontaneous, respirophasic Doppler waveforms that respond normally to augmentation maneuvers. The common femoral vein, saphenofemoral junction, femoral vein through mid to distal thigh and popliteal vein are fully compressible. Patent posterior??tibial and peroneal veins with no evidence of thrombus. Patent gastrocnemius veins with no evidence of thrombus. ? Interpretation: ?? RIGHT: ??No evidence of lower extremity deep venous thrombosis. ?? LEFT: Lower extremity non occlusive deep venous thrombus of indeterminate age.. ?? Comparison: Previous exam done 05/03/2021 identified non-occlusive thrombus in the common femoral vein, femoral vein proximal thigh, profunda vein proximal thigh, and popliteal vein as well as a thrombosed gastrocnemius vein in the proximal posterior calf. ? IMPRESSION Zander Waldron is a 60 y.o. man with an episode of apparently unprovoked bilateral proximal DVT who experienced significant progression during an anticoagulant hiatus for an elective procedure. Though it is possible that the event was triggered by a COVID19 infection (event mild infections can be a ssociated with a profound prothrombotic state), I can't be sure. Given the severity of the event andthe potential catastrophic consequences of a recurrence, I think he is a candidate for manager storage anticoagulation, despite the absence of a defined hereditary or acquired thrombophilia. PLAN/RECOMMENDATIONS I reviewed my impression with Jun and Karlie and reviewed the test results with them. I again reviewed the difference between an unprovoked VTE event and one that may have been precipitated by temporary risk factors (e.g., surgery, trauma, travel, hospitalization, immobilization) and discussed the additive nature of factors such as hereditary or acquired thrombophilia (e.g., factor V Leiden, PT [id number]), ABO blood type (non-O > O), dehydration, obesity, smoking varicose veins, diabetes, cancer, hormone use. I explained that the risk for developing a recurrent VTE is higher when the original event was unprovoked than when it was associated with identifiable risk factors that have subsequently been eliminated. I explained that current ACCP recommendations (2016) for individuals with a first unprovoked VTE are for 3-6 months of anticoagulation with consideration for continuing indefinitely if the benefit in terms of risk reduction outweighs the risk for complications of long-termanticoagulation. Indefinite anticoagulation would be more strongly recommended in the event of a second VTE episode, especially an unprovoked one. I reviewed the fact that the risk for VTE recurrence is strongly influenced by the nature of the initial event (I.e., provoked by a temporary risk factor vs unprovoked). In the case of a VTE that is provoked by a medical risk factor (COVID19 infection, for example) the recurrence risk can be expected to be as low as 5% or so, while an unprovoked event portends a recurrence risk of up to 30% or more. In his case, it is possible that the event was triggered by an undetected COVID19 infection, despitean initially negative test (the tests aren't perfect) but I conceded that we cannot be sure. Otherwise I see no plausible trigger, making this equally likely to be an unprovoked event, in my view. Accordingly, while his risk for recurrence may be as low as 5%, it could be as high as 30% over the twoyears following discontinuation of anticoagulation. In addition to the unprovoked nature of the event his other clinically relevant risk factor for recurrence is male sex and, to some extent, his age. In light of this, I think his recurrence risk is high enough and the consequences of recurrence potent ially severe enough that consideration for ongoing anticoagulation is in his best interest at this time. Anticoagulation reduces the risk for VTE recurrence to about 1% per year at the hazard of a major bleeding risk that is also about 1% per year. I conceded that life-threatening bleeding is risk with anticoagulation but that the risk for this is currently outweighed by his risk for serious thrombosis without anticoagulation. He's tolerating anticoagulation quite well, though, and has adequate kidney and liver function to support ongoing anticoagulation with a DOAC, thus the risk/benefit calculation strongly favors ongoing anticoagulation. Given that he has tolerated apixaban so far, it is appropriate to continue at the current 5 mg twicedaily dose. I would like to consider a dose reduction to the prophylactic dose in the future, but given the profound nature of this event and the likely persistence of a prothrombotic state, I'm not inany hurry to do that at this time. We reviewed the idea that should he require surgery or other invasive procedures, temporary interruption of apixaban is recommended; HOWEVER, given that he had a definite case of COVID19 and the possibility that the infection is what may have triggered the DVTs as well as the recent data suggesting that the prothrombotic state that accompanies a COVID19 infection persists for at least 6 months after the infection, I do not recommend that he undergo any elective procedures for which an anticoagulant hiatus would be required until he's completed 6 months of anticoagulation (I.e., after August 2021). This includes the spinal injection that is in the works, and I don't recommend that he have the injection while fully anticoagulated either as this may lead to an unacceptable risk for bleeding. He's not suffering terribly, and he can put this off. I'll be happy to help with recommendations for managing the anticoagulation around such a procedure if it comes up. In summary: ?? Continue apixaban for the longterm with periodic review of risk/benefit. ?? Continue with the 5 mg twice daily dose for now; defer to Dr. Moss to manage the prescription. ?? Will consider a dose reduction to 2.5 mg twice daily at some point in the future for continuing for the manager storage ?? NO anticoagulant hiatus for elective procedures until at least August ?? No further thrombophilia screening Zander Waldron had the opportunity to ask questions and indicated that all his questions were answered to his satisfaction. I will arrange to follow up with him at about the time he sees Dr. Bhatia vascular surgery (sometime this fall). He'll have a follow up duplex study at the time and if allcontinues to be well, will discuss lowering the dose of apixaban. Natacha Velásquez MD Operations Research Group Manager, [facility] documented in this encounter Plan of Treatment Not on filedocumented as of this encounter Visit Diagnoses Diagnosis Acute deep vein thrombosis (DVT) of both lower extremities, unspecified vein Anticoagulated by anticoagulation treatm ent Encounter for long-term (current) use of anticoagulants documented in this encounter Care Teams Auto Tech Relationship Specialty Start Date End Date Farhan Moss MD PCP - General Emergency Medicine 04/26/21 [address] [place] [address] documented as of this encounter
--- OUTSIDE RECORDS SUMMARY | 2022-01-27 16:02 | XMS_ITS | Encounter Summary ---
:1960 Author Organization [facility] [place] [address] Care Team Providers Name Role Phone Farhan Moss MD Primary Care Provider Encounter Details Date Type Department Care Team Description 06/07/2021 Hospital Encounter Hematology and Acute b ilateral deep Oncology at [facility] vein thrombosis (DVT) [facility] of iliac veins [place] [address] Social History Tobacco Use Types Packs/Day Years Used Date Smoking Tobacco: Former Smokeless Tobacco: Never Alcohol Use Standard Drinks/Week Comments Not Currently 0 (1 standard drink = 0.6 oz pure alcoho l) about once a month Sex Assigned at Date Recorded Not on file documented as of this encounter Medications at Time of Discharge Medication Sig Dispensed Refills Start Date End Date acetaminophen (Tylenol) 325 Take 650 mg by mouth 0 mg Tablet every 6 hours as needed for Pain. apixaban (Eliquis) 5 mg Take 5 mg by mouth 2 0 Tablet times daily. levothyroxine (SYNTHROID) Take 88 mcg by mouth 0 88 mcg Tablet daily. omeprazole (PRILOSEC) 20 mg Take 20 mg by mouth 0 Capsule, Delayed daily. Release(E.C.) documented as of this encounter Plan of Treatment Not on filedocumented as of this encounter Procedures Procedure Name Priority Date/Time Associated Diagnosis Comme nts TT Routine 06/07/2021 10:55 Acute bilateral deep Res ults for this AM EDT vein thrombosis procedure ar e in (DVT) of iliac veins the res ults of lower extremities section . PTT Routine 06/07/2021 10:55 Acute bilateral deep Res ults for this AM EDT vein thrombosis procedure ar e in (DVT) of iliac veins the res ults of lower extremities section . PT Routine 06/07/2021 10:55 Acute bilateral deep Res ults for this AM EDT vein thrombosis procedure ar e in (DVT) of iliac veins the res ults of lower extremities section . PLAT Routine 06/07/2021 10:55 Acute bilateral deep Res ults for this AM EDT vein thrombosis procedure ar e in (DVT) of iliac veins the res ults of lower extremities section . FIBR Routine 06/07/2021 10:55 Acute bilateral deep Res ults for this AM EDT vein thrombosis procedure ar e in (DVT) of iliac veins the res ults of lower extremities section . HC CARDIOLIPIN Routine 06/07/2021 10:55 Acute bilateral deep ANTIBODIES AM EDT vein thrombosis (DVT) of iliac veins of lower extremities THS REPORT Routine 06/07/2021 10:55 Acute bilateral deep Res ults for this AM EDT vein thrombosis procedure ar e in (DVT) of iliac veins the res ults of lower extremities section . PROTEIN S ACTIVITY Routine 06/07/2021 10:55 Resul ts for this AM EDT procedure are i n the results section. APC RESISTANCE Routine 06/07/2021 10:55 Results f or this AM EDT procedure are i n the results section. PROTHROMBIN GENE Routine 06/07/2021 10:55 Results for this MUTATION AM EDT procedure are i n the results section. BETA-2 GLYCOPROTEIN Routine 06/07/2021 10:55 Acute bilateral d eep Results for this ANTIBODIES AM EDT vein thrombosis procedure ar e in (DVT) of iliac veins the res ults of lower extremities section . PROTEIN C ACTIVITY Routine 06/07/2021 10:55 Resul ts for this AM EDT procedure are i n the results section. CARDIOLIPIN ANTIBODY Routine 06/07/2021 10:55 Acute bilateral deep Results for this SCREEN AM EDT vein thrombosis procedure ar e in (DVT) of iliac veins the res ults of lower extremities section . ANTITHROMBIN Routine 06/07/2021 10:55 Results for this AM EDT procedure are i n the results section. HOMOCYSTEINE TOTAL, Routine 06/07/2021 10:55 Acute bilateral d eep Results for this PLASMA AM EDT vein thrombosis procedure ar e in (DVT) of iliac veins the res ults of lower extremities section . THROMBOSIS SCREEN Routine 06/07/2021 10:48 Result s for this REPORT AM EDT procedure are i n the results section. documented in this encounter Results Prothrombin gene mutation (06/07/2021 10:55 AM EDT) Component Value Ref Test Analysis Performed At [facility] Range Method Time Signature Prothrombin Negative FREDY Mutation [facility] Prothrombin RESULT: NEGATIVE for the Fac tor II 58828K>A variant in 3? untranslated region FREDY Mutation of the prothrombin gene [facility] INTERPRETATION: The negative finding indicates that this p atient is not at LABORATORY increased risk of thrombosis resulting from a Factor II 20 210G>A associated elevation of prothrombin. Negative results indicate the abse nce of the prothrombin 16876A>A variant ([id number], [id number]), but do not rule out the presence of other rare variants within the pr othrombin gene or other causes of thromboembolic disease. Clinical corre lation is recommended. METHODS: The region of interest in the Prothrombin gene (202 10G>A) is interrogated using a TaqMan allelic discrimination assay. [facility] DNA was isolated from the submitted peripheral blood specimen. Real- time PCR was performed to amplify a short region spanning the variant site, and genotyping was performed by allelic discrimination using a mixture of f luorescently labeled probes, one of which is specific for the reference sequence, the other specific for the variant allele. This test was developed and its performance jenny acteristics determined by the [facility] ([facility] at [facility]. It has not been cleared or approved by the FDA. The laboratory is regulated under CLIA as qualified to perform high-complexity testing. This vane t is used for clinical purposes. It should not be regarded as investigational or fo r research. Comment: [VERIFIED DATE]06.11.21 Verified By:Jose Angel Ph.D., FACMG, David A Clinical Sample Tailor/Molecular Geneti cist (Electronic Signature) Specimen Anatomical Collection Method Collection Time Receive d Time (Source) Location / / Volume Laterality Blood Venous Draw / 06/07/2021 10:55 06/10/2021 7:41 Unknown AM EDT AM EDT Resulting Agency Comment Spec In Lab Natacha Velásquez MD HEMATOLOGY ORDERABLES Performing Organization Address City/[facility]/ZIP Code Phon e Number [address] Protein S Activity (06/07/2021 10:55 AM EDT) Analysis Performed At Patho logist Time Signature Protein S Act 130 64 - 149 % [facility] LABORATORY Specimen Anatomical Collection Method Collection Time Receive d Time (Source) Location / / Volume Laterality Blood Venous Draw / 06/07/2021 10:55 06/07/2021 Unknown AM EDT 11:03 AM EDT Resulting Agency Comment Spec In Lab Natacha Velásquez MD HEMATOLOGY ORDERABLES Performing Organization Address City/[facility]/ZIP Code Phon e Number [address] Protein C activity (06/07/2021 10:55 AM EDT) P athologist Signature Protein C Act 101 70 - 140 % [facility] Specimen Anatomical Collection Method Collection Time Receive d Time (Source) Location / / Volume Laterality Blood Venous Draw / 06/07/2021 10:55 06/07/2021 Unknown AM EDT 11:03 AM EDT Resulting Agency Comment Spec In Lab Natacha Velásquez MD HEMATOLOGY ORDERABLES Performing Organization Address City/[facility]/ZIP Code Phon e Number [address] Antithrombin (06/07/2021 10:55 AM EDT) P athologist Signature Antithrombin 100 83 - 128 % [facility] Specimen Anatomical Collection Method Collection Time Receive d Time (Source) Location / / Volume Laterality Blood Venous Draw / 06/07/2021 10:55 06/07/2021 Unknown AM EDT 11:03 AM EDT Resulting Agency Comment Spec In Lab Natacha Velásquez MD HEMATOLOGY ORDERABLES Performing Organization Address City/State/ZIP Code Phon e Number [place] [id number] [facility] [address] APC resistance (06/07/2021 10:55 AM EDT) [facility] APC Resistance 3.19 >=2.45 [facility] Specimen Anatomical Collection Method Collection Time Receive d Time (Source) Location / / Volume Laterality Blood Venous Draw / 06/07/2021 10:55 06/07/2021 Unknown AM EDT 11:03 AM EDT Resulting Agency Comment Spec In Lab Natacha Velásquez MD HEMATOLOGY ORDERABLES Performing Organization Address City/[facility]/ZIP Code Phon e Number [address] Beta-2 glycoprotein antibodies (06/07/2021 10:55 AM EDT) [facility] B2GPI IgG 1.1 <=6.9 [facility] unit/mL [facility]ORY Comment: Please note that as of 12/20/2020 that t he test method and interpretive criteria for the B2-GPI antibody screen has changed. The interpretive criteria associated with the new assay has a lowe r threshold for positive as compared to the previous method. B2GPI IgM <2.9 <=6.9 unit/mL [facility] Comment: Please note that as of 12/20/2020 that t he test method and interpretive criteria for the B2-GPI antibody screen has changed. The interpretive criteria associated with the new assay has a lowe r threshold for positive as compared to the previous method. Specimen Anatomical Collection Method Collection Time Receive d Time (Source) Location / / Volume Laterality Blood 06/07/2021 10:55 06/07/2021 1:17 AM EDT PM EDT Resulting Agency Comment Spec In Lab Natacha Velásquez MD IMMUNOLOGY ORDERABLES Performing Organization Address City/[facility]/ZIP Code Phon e Number [address] Homocysteine Total, Plasma (06/07/2021 10:55 AM EDT) [facility] Homocyst Tot 9 <=15 [facility] mcmol/L [facility] LABORATORY Specimen Anatomical Collection Method Collection Time Receive d Time (Source) Location / / Volume Laterality Blood 06/07/2021 10:55 06/07/2021 AM EDT 11:03 AM EDT Resulting Agency Comment Spec In Lab Natacha Velásquez MD CHEMISTRY ORDERABLES Performing Organization Address City/[facility]/ZIP Code Phon e Number [address] Cardiolipin Antibody Screen (06/07/2021 10:55 AM EDT) P athologist Signature Cardiolipin IgG 1.1 <=9.9 [facility] GPL-U/mL [facility] LABORATORY Comment: Please note that as of 12/20/2020 that t he test method and interpretive criteria for the cardiolipin antibody sc reen has changed. The interpretive criteria associated with the new assay n o longer includes an indeterminate range, and the threshold for positive is lower than the previous method. Cardiolipin IgM <0.9 <=9.9 MPL-U/mL [facility] Comment: Please note that as of 12/20/2020 that t he test method and interpretive criteria for the cardiolipin antibody sc reen has changed. The interpretive criteria associated with the new assay n o longer includes an indeterminate range, and the threshold for positive is lower than the previous method. Specimen Anatomical Collection Method Collection Time Receive d Time (Source) Location / / Volume Laterality Blood 06/07/2021 10:55 06/07/2021 1:17 AM EDT PM EDT Resulting Agency Comment Spec In Lab Natacha Velásquez MD IMMUNOLOGY ORDERABLES Performing Organization Address City/[facility]/ZIP Code Phon e Number [address] THS Report (06/07/2021 10:55 AM EDT) Analysis Performed At Patho logist Time Signature THS Report See Comment [facility] Comment: See Thrombosis Screen Report [id number] under Hematopathology Reports. Specimen Anatomical Collection Method Collection Time Receive d Time (Source) Location / / Volume Laterality Blood 06/07/2021 10:55 06/07/2021 AM EDT 11:03 AM EDT Resulting Agency Comment Spec In Lab Natacha Velásquez MD HEMATOLOGY ORDERABLES Performing Organization Address City/[facility]/[place] [address] (ABNORMAL) Plat (06/07/2021 10:55 AM EDT) P athologist Signature Platelets 405 (H) 145 - 357 [facility] x10(3)/[facility] LABORATORY Plat Immature 2.1 0.0 - 7.4 [facility] % % [facility] LABORATORY Comment: Limitation of the Immature Platelet Frac tion (IPF)-May be less reliable when the platelet count is less than 05n305/u L due to statistical imprecision. The IPF value provides an assessment of the Bone Marrow production status. ??It is useful in differentiating Thrombocyto penia caused by platelet destruction/consumption versus decreased production. It also helps to determine the imminent release of platelets and ca n be therefore a helpful parameter in Chemotherapy and Bone marrow transplant patients. ELEVATED IPF value: ?? When the bone marrow is in a state of over production such as when increased destruction and consumption are the unde rlying issue. ?? When the marrow is recovering post ch emotherapy or bone marrow transplant. LOW to NORMAL IPF value: ?? When the bone marrow in not respondin g and is in a decreased state of production. References: [employer] The Clinical Value of the Immature Platelet Fraction (IPF) in Cell Recovery Document Number [id number] 07/2010 [employer] The Role of the Imm ature Platelet Fraction (IPF) in the Differential Diagnosis of Thrombocytopen ia, Document [id number] V05 P0514 Specimen Anatomical Collection Method Collection Time Receive d Time (Source) Location / / Volume Laterality Blood 06/07/2021 10:55 06/07/2021 AM EDT 11:03 AM EDT Resulting Agency Comment Spec In Lab Natacha Velásquez MD HEMATOLOGY ORDERABLES Performing Organization Address City/[facility]/[place] [address] TT (06/07/2021 10:55 AM EDT) P athologist Signature Thrombin Time 14 10 - 17 [facility] LABORATORY Comment: A prolongation in the thrombin time (>20 seconds) may be indicative of hypofibrinogenemia or dysfibrinogenemia. The thrombin time will be prolonged, often markedly so, by the presence of he pedro or direct thrombin inhibitors (argatroban, bivalirudin, dabigatran) in the specimen. Specimen Anatomical Collection Method Collection Time Receive d Time (Source) Location / / Volume Laterality Blood 06/07/2021 10:55 06/07/2021 AM EDT 11:03 AM EDT Resulting Agency Comment Spec In Lab Natacha Velásquez MD HEMATOLOGY ORDERABLES Performing Organization Address City/[facility]/[place] [address] FIBR (06/07/2021 10:55 AM EDT) athologist Signature Fibrinogen 299 200 - 393 [facility] mg/dL [facility] LAB[facility]ORY Comment: A fibrinogen level >100 mg/dL is adequat e for hemostasis in most patients without underlying bleeding disorders. Specimen Anatomical Collection Method Collection Time Receive d Time (Source) Location / / Volume Laterality Blood 06/07/2021 10:55 06/07/2021 AM EDT 11:03 AM EDT Resulting Agency Comment Spec In Lab Natacha Velásquez MD HEMATOLOGY ORDERABLES Performing Organization Address City/[facility]/[place] [address] PTT (06/07/2021 10:55 AM EDT) P athologist Signature PTT 34 25 - 37 sec [facility] Comment: The PTT is NOT appropriate for heparin m onitoring. Use the Anti-Xa level for heparin monitoring (HEP UFH) or LMWH mon itoring (HEP LMW). A PTT less than 37 seconds generally indicates adequate hem ostasis. Specimen Anatomical Collection Method Collection Time Receive d Time (Source) Location / / Volume Laterality Blood 06/07/2021 10:55 06/07/2021 AM EDT 11:03 AM EDT Resulting Agency Comment Spec In Lab Natacha Velásquez MD HEMATOLOGY ORDERABLES Performing Organization Address City/State/ZIP Code [place] [address] (ABNORMAL) PT (06/07/2021 10:55 AM EDT) P athologist Signature PT 12.8 (H) 9.4 - 12.5 [facility] LABORATORY INR 1.1 [facility] LAB[facility]ORY Comment: An INR <2.0 indicates adequate procoagul ant activity for hemostasis in most patients without underlying bleeding dis orders, though the INR may not adequately reflect hemostatic capacity i n patients with liver disease and synthetic impairment. The recommended ta rget INR range for therapeutic anticoagulation is 2.0 ? 3.0 for most applications, though lower and higher ranges may be appropriate depending on c linical circumstances. Specimen Anatomical Collection Method Collection Time Receive d Time (Source) Location / / Volume Laterality Blood 06/07/2021 10:55 06/07/2021 AM EDT 11:03 AM EDT Resulting Agency Comment Spec In Lab Natacha Velásquez MD HEMATOLOGY ORDERABLES Performing Organization Address City/[facility]/[place] [address] Thrombosis Screen Report (06/07/2021 10:48 AM EDT) Component Value Ref Test Analysis Performed At Patholo gist Range Method Time Signature Thrombosis [id number] ? Location: [address] [place] [address] Screen Report CHANNAHON The signing pathologist has (i) examined the relevant preparation(s) for the [facility] specimen(s) and (ii) rendered or confirmed the diagnosis(es) . HOSPITAL LABORATORY . ? Throm bosis Screen DIAGNOSIS 1. Prolonged PT, likely anticoagulant effect. 2. No evidence for the presence of common hereditary/acquire d hematologic ?? risk factors associated with unexplained venous thromboe mbolism (see ?? Discussion). Electronically signed by: ?Christen LOPEZ, Natacha Torrez Verified: ??06/13/2021 17:13 ??Hematopathologist Performed at: ??-[facility] Dept. of Pathology, [place], [place] ADDITIONAL STUDIES TEST ?(REFERENCE RANGE) ?RESULT Platelet count ?(145,000-357,000/uL) ?405,000/cumm PT ?(9.4-12.5) ?12.8 sec PTT ? (25-37) ? 34 sec Fibrinogen ?(200-393) ?299 mg/dl Thrombin time ? (10-17) ? 14 sec APC resistance, ratio ? (>2.45) ? 3.19 Antithrombin ?(83-128%) ? 100% Protein C* ?(70-140%) ? 101% Protein S* ?(64-149%) ? 130% Lupus anticoagulant (DRVVT r atio) (<1.20) ? Not performed Lupus anticoagulant (SCT rat io) ?? (<1.20) ? Not performed Anticardiolipin antibodies ?(IgG <10 GPL) ? 1.1 GPL Anticardiolipin antibodies ?(IgM <10 MPL) ? <0.9 MPL Aafj-5-xfwabdbarjso-1 antibodies ??(IgG <7 units) ?1.1 units Iuzy-7-fctzohordvwf-1 antibodies ??(IgM <7 units) ?<2.9 units Homocysteine, random, plasma ?(</=15 umol/L) ?9 umol/L Factor V Leiden Mutation ?(normal) ?Not performed Prothrombin (80599 G->A) mutation (normal) ?Negative * Functional assay for free Protein S and Protein C Not performed due to potential interf erence from direct oral anticoagulant. The screening test for a ctivated protein C resistance is negative, thus there is no evidence for the presenc e of factor V Leiden. ??The DNA assay for factor V Leiden is therefore not indicated and was not performed as part of this study. DISCUSSION Tests for a lupus anticoagul ant cannot be performed on this specimen as this patient is currently being treated with a direc t oral anticoagulant (apixaban). Lupus anticoagulant testing is un reliable in the presence of this class of medications, thus if antiphospholipid sy ndrome is suspected clinically, suggest separate LA testing after an anticoagul ant hiatus of at least 72 hours. Note that tests for anticardiolipin and anti-be ta-2-GP1 antibodies are accurate in the presence of these medications and the results are NEGATIVE in this study. ?Similarly, levels of protein C and protein S may be over estimated in the presence of rivaroxaban or apixaban. If there is strong suspicion f or a deficiency of one of these proteins, suggest repeat testing after discontinuation of the potentially interferin g medication. Although the thrombophilia s creening panel is negative, this individual may have additional as yet undefined genetic or environm ental risk factors for venous thrombosis. Consultation wi a thrombosis specialist or genetic counselor may be . DISCUSSION helpful for further charact erizing specific thrombosis risk for this patient, if clinically appropriate. 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 No family history of VTE. 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
--- OUTSIDE RECORDS SUMMARY | 2022-01-27 16:02 | XMS_ITS | Encounter Summary ---
:1960 [place] [address] Care Team Providers Name Role Phone Farhan Moss MD Primary Care Provider Encounter Details Date Type Department Care Team Description 04/26/2021 Tech Visit Vascular Lab at [facility], u te bilateral deep vein thrombosis (DVT) of iliac veins of lower extremities; [facility] [place] [address] Social History Tobacco Use Types Packs/Day [...] Name Priority Date/Time Associated Diagnosis Comme nts IVC COMPLETE Routine 04/26/2021 8:13 AM IVC thrombosis Results for this EST procedure are i n the results section. DUPLEX FOR DVT Routine 04/26/2021 8:00 AM Acute bilateral deep Results for this BILAT LEGS EST vein thrombosis procedure ar e in (DVT) of iliac veins the res ults of lower extremi ties section. IVC thrombosis documented in this encounter Results Duplex Study IVC/Iliac, Comp (04/26/2021 8:13 AM EST) Component Value Ref Test Analysis Performed At [facility] Method Time Signature VB Text Department: Vascular Surgery Lab [facility] Report Patient: [id number] (AMILCAR PATE) CPT: 39104 Referring Physician: TALI ALONZO ?? Indications: S/p thrombectomy and stenting of IV C, right CIV and right EIV, ? thrombus/patency Findings: Interpretation: Patent inferior vena cava with no evidence of thrombus where clearly visualized; however due to limitations from over lying bowel gas non-occlusive thrombus cannot entirely be excluded. There appears to be non-occlusive thrombus in the sten tahir RIGHT common iliac and external iliac veins. Low respirophasic doppler waveform s were noted throughout the RIGHT common and external iliac veins. Occlusive thrombus is noted within the stented L EFT common and external iliac veins. Comparison: ??No previous study in our vascular lab da tabase for comparison. Notification: Dr. Smith was informed of these preliminary f indings. Electronically Signed by: MARLENE SMITH on 2021-04-30 07:40 :26 AM VB Text End of Report [facility] Report Specimen (Source) Anatomical Collection Method Collection Time Re ceived Time Location / / Volume Laterality 04/26/2021 8:13 AM EST Tali Alonzo APRN VASCULAR ORDERABLES Performing Organization Address City/State/ZIP Code Phon e Number [facility] Duplex Study for DVT, Bilat legs (04/26/2021 8:00 AM EST) Component Value Ref Test Analysis Performed At [facility] Method Time Signature VB Text Department: Vascular Surgery Lab [facility] Report Patient: [id number] (AMILCAR PATE) CPT: 14903 Referring Physician: MARLENE SMITH ?? Indications: Patient with h/o right DVT, s/p thrombectomy and stenting of IVC, RIGHT CIV, EIV, ? change Findings: RIGHT: Patent common femoral vein and popliteal vein with sp ontaneous, respirophasic Doppler wavefo mayuri that respond normally to augmentation maneuvers. The common femoral vein, sap henofemoral junction, femoral vein through the thigh and popliteal vein are fully compressibl e. Posterior tibial and peroneal veins are patent but were not adeq uately visualized to exclude non-occlusive thrombus. LEFT: Non-occlusive thrombus in the comm on femoral vein, femoral vein proximal thigh, profunda vein proximal thigh, popliteal v ein. Thrombosed gastrocnemius vein in the proximal posterior calf. The femoral vein in the mid to distal thigh is p atent and fully compressible. Posterior tibial and peroneal veins are patent but were not adequately visualized to exclude non-occlusive thrombus. Interpretation: RIGHT: No evidence of femoral or popliteal deep vein thrombus. Calf veins are patent but were not adequately visualized to exclude n on-occlusive thrombus. LEFT: Acute, non-occlusive lower extremi ty deep vein thrombus (common femoral, femoral, profunda, popliteal) as well as intramuscular vein thrombus (gastrocnemius). Comparison: RIGHT: Improvement when compared to the previous exam performed on 03/12/2021 which identified extensive lower extremity DVT. LEFT: ??No LEFT previous study in our vascular lab databas e for comparison. Notification: Dr. Smith was informed of these preliminary f indings. 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
--- OUTSIDE RECORDS SUMMARY | 2022-01-27 16:02 | XMS_ITS | Encounter Summary ---
:1960 Author Organization [facility] Address [address] [place] [address] Care Team Providers Name Role Phone None Primary Care Provider Unavailable Encounter Details Date Type Department Care Team Description 04/03/2021 Office Visit Vascular Surgery at [facility], ASHLEY Douglass (inferior vena cava obstruction); [facility] Acute 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; [facility] [address] [place] VASCULAR SURGERY [id number] [place] [id number] [phone] Social History Tobacco Use Types Packs/Day Years Used Date Smoking Tobacco: Former Smokeless Tobacco: Never Alcohol Use Standard Drinks/Week Comments Not Currently 0 (1 standard drink = 0.6 oz pure alcoho l) about once a month Sex Assigned at Date Recorded Not on file documented as of this encounter Last Filed Vital Signs Vital Sign Reading Time Taken Comments Blood Pressure 124/81 04/03/2021 11:12 AM EST Pulse 74 04/03/2021 11:12 AM EST Temperature - - Respiratory Rate - - Oxygen Saturation - - Inhaled Oxygen Concentration - - Weight 88.5 kg (195 lb) 04/03/2021 11:12 AM EST reporte d Height 175.3 cm (5' 9) 04/03/2021 11:12 AM EST reporte d Body Mass Index 28.8 04/03/2021 11:12 AM EST documented in this encounter Progress Notes Marlene Smith MD - 04/03/2021 10:45 AM EST VASCULAR SURGERY POSTOP FOLLOW-UP SERVICE DATE: 04/05/2021 SERVICE TIME: 1:16 PM PRIMARY CARE PHYSICIAN: None REFERRING PROVIDER: No referring provider defined for this encounter. Operation: 03/12/2021 ([facility]) - Right femoral vein cutdown and exposure for delivery of endovascular device, right IJ vein access, nSuprarenal IVC filter placement Endovascular mechanical thrombectomy of IVC and right common and external iliac vein IVC, right common and right external iliac vein stenting Compression thrombectomy of right lower leg Right leg 4-compartment fasciotomies 03/15/2021 ([facility]) - Angiojet pharmacomechanical thrombectomy with powerpulse of left common and external iliac veins - Left common iliac vein stent placement (Express [id number], post-dilated to 12mm) - Left common and external iliac vein stent placement (Wallstent [id number]) - US guided right internal jugular vein access - IVC venogram - Retrieval of IVC filter - Perclose closure of left common femoral vein, manual pressure closure of right IJ vein History of Present Illness: Zander Waldron is a 60 y.o. male here for follow-up after recent admission for phlegmasia of bilateral lower extremity and extensive DVT of vena cava and B iliac and femorals in the seting of [facility]. He underwent extensive venous recannulization with Dr. Smith of his right leg, including open thrombectomy and stenting as well as fasciotomies. He subsequently then underwent left iliac venous thrombectomy and stenting. He reports that the swelling in his bilateral lowerextremities is now minimal. Physical Exam: PHYSICAL EXAM Physical Exam Performed BP 124/81 (BP Location (NBP): Left arm, Patient Position: Sitting, BP Cuff Sizes: Adult (25-34 cm)) Pulse 74 Ht 175.3 cm (5' 9) Comment: reported Wt 88.5 kg (195 lb) Comment: reported BMI 28.80 kg/m?? CONSTITUTIONAL: alert, well developed, well nourished, in no acute distress NEUROLOGIC/PSYCHIATRIC: Grossly normal HEENT: normal atraumatic. LUNGS: Breathing comfortably on room air HEART: regular rate and rhythm ABDOMEN: soft, non-tender; bowel sounds normal; no masses, no organomegaly INTEGUMENTARY: Wound -none SURGICAL SITES: Right medial thigh and medial lateral fasciotomy incisions healing well with staplesin place and sutures on the lateral calf. He feels there is some erythema along his medial calf, this does appear to be more of an evolving ecchymosis however given the presence of this he did not wantto have his kassandra removed today. MUSCULOSKELETAL: Right lower extremity with minimal edema. Left lower extremity with moderate edema (according to the team that had seen him in house, this is improved from discharge)) He does have a petechial type rash on his left calf and anterior alexander. His skin is intact Pulses/Signals: Bilateral DP and PT pulses are palpable DATA: No results found for this or any previous visit (from the past 72 hour(s)). Impression: 60 y.o. male here for follow-up after IVC and right iliac stenting, and right lower extremity thrombectomy and fasciotomies for phlegmasia as well as left iliac vein stenting in the settingof extensive DVT will temporarily off anticoagulation. He continues to take anticoagulation without issues. 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
--- OUTSIDE RECORDS SUMMARY | 2022-01-27 16:02 | XMS_ITS | Encounter Summary ---
:1960 Author Organization [facility] [place] [address] Care Team Providers Name Role Phone Farhan Moss MD Primary Care Provider Reason for Visit Reason Comments Advice Only Consultation (Urgent) - Closed Specialty Diagnoses / Procedures Referred By Contact Refer red To Contact Hematology and Diagnoses Acute embolism and thrombosis of unspecified deep veins of lower extremity, bilateral Brooks Duarte [facility] 3[facility] Oncology MD [facility] [address] [place] [id number] Referral ID Status Reason Start Date Expiration Date Visits V isits Requested Authorized [id number] Closed Consult, Test 02/28/2021 02/28/2022 [facility] PCP Updated and/or Approved Encounter Details Date Type Department Care Team Description 06/07/2021 Office Visit Hematology and Natacha Velásquez 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 [phone] [place], [place] [address] Social History Tobacco Use Types Packs/Day Years Used Date Smoking Tobacco: Former Smokeless Tobacco: Never Alcohol Use Standard Drinks/Week Comments Not Currently 0 (1 standard drink = 0.6 oz pure alcoho l) about once a month Sex Assigned at Date Recorded Not on file documented as of this encounter Last Filed Vital Signs Vital Sign Reading Time Taken Comments Blood Pressure 117/91 06/07/2021 9:51 AM EDT Pulse 68 06/07/2021 9:51 AM EDT Temperature 35.8 ??C (96.4 ??F) 06/07/2021 9:51 AM EDT Respiratory Rate 16 06/07/2021 9:51 AM EDT Oxygen Saturation 98% 06/07/2021 9:51 AM EDT Inhaled Oxygen Concentration - - Weight 92.8 kg (204 lb 9.6 oz) 06/07/2021 9:51 AM EDT Height 173 cm (5' 8.11) 06/07/2021 9:51 AM EDT Body Mass Index 31.01 06/07/2021 9:51 AM EDT documented in this encounter Progress Notes Natacha Velásquez MD - 06/07/2021 10:00 AM EDT Images from the original note were not included. [facility] [place] [address] THROMBOSIS CONSULTATION DATE OF VISIT 06/07/2021 Patient Zander Waldron 1960 REFERRING PHYSICIAN Brooks Duarte MD PRIMARY CARE PHYSICIAN Farhan Moss MD REASON FOR CONSULTATION Evaluation for thrombophilia, anticoagulation recommendations HISTORY OF THE PRESENT ILLNESS Zander Waldron is a 60 y.o. man with bilateral DVTs, who is seen in consultation at the request of Brooks Duarte MD for thrombophilia evaluation and anticoagulation recommendations. The historyis obtained from the patient, and I have reviewed extensive medical records provided by the referring physician and located in the electronic medical record to fill in gaps in the patient's recollection of events, treatments and outcomes. Jun was enjoying his usual state of excellent health until the day before (02-21-2021) when he developed spontaneous bilateral leg swelling and pain. He presented to [facility] in [facility] where a CT scan showed thrombosis in [...] to toes. He was originally seen at [facility] but transferred to [facility] where he was admitted to the vascular [...] for COVID19 when he was admitted to [facility] the first time but had a positive home rapid COVID test when he got home from the hospital, associated withsome mild symptoms of myalgias and altered taste, from which he's fully recovered. There is no known family history of VTE, but he's not close enough to family members to know for sure. He has few in the way of thrombosis risk factors as noted below: THROMBOSIS RISK FACTORS Risk Factor Comment Obesity (BMI >30 kg/m2) V/A X Body mass index is 31.01 kg/m??. Diabetes V/A Current smoker V/A Estrogen or estrogen/progestin V/A V/A Inflammatory disease V/A ?COVID19 Recent surgery (<3 months) V Recent hospitalization (<3 mo) V Recent travel (<3 mo) V Period of immobility V Documented thrombophilia V Accident/Trauma V/A Cancer or treatment for cancer V/A Blood transfusion V/A Central venous catheter V Family history (1st degree) V/A Varicose veins/venous insuff. V Hypertension A Hyperlipidemia A Vascular disease A V: Risk factor for venous thrombosis; A: Risk factor for arterial thrombosis In the office today he reports feeling quite well and feels ready to get back to work. He has full use of both legs along with minimal swelling and minimal pain, though he notes some tenderness on the bottom of his feet and some numbness and tingling in his right thigh. He's had no bleeding problems with the apixaban and no problem taking the twice a day medication. He has chronic low back pain that predates the DVTs and has been recommended to have what sounds like a corticosteroid injection, whichis somewhere in the planning stages. He is interested in understanding what may have caused this VTEevent and in the best way to prevent another. PAST MEDICAL HISTORY 1. Venous thromboembolism, , as above Bilateral DVTs, Rx apixaban Progression after apixaban hiatus - Rx thrombectomy, venous stenting, fasciotomy, IVC filter, [...] 3.66) performed by Rc Carrasquillo MD at [facility] ??? PRO COLONOSCOPY, DIAGNOSTIC N/A 03/11/2021 COLONOSCOPY, DIAGNOSTIC performed by Titi Stroud MD at [facility] ??? PRO COLONOSCOPY, FLEX, W/DIR SUBMUC INJECT N/A 05/07/2020 COLONOSCOPY WITH DIRECTED SUBMUCOSAL INJ (WRVU 3.66) performed by Rc Carrasquillo MD at [facility] ??? PRO COLONOSCOPY, REMV LESN, SNARE N/A 12/11/2016 COLONOSCOPY, POLYPECTOMY, REMOVAL LESION BY SNARE (WRVU 4.67) performed by Jewels Wilkerson MD at [facility] ??? PRO COLONOSCOPY, REMV LESN, SNARE N/A 05/07/2020 COLONOSCOPY, POLYPECTOMY, REMOVAL LESION BY SNARE (WRVU 4.67) performed by Rc Carrasquillo MD at [facility] ? ? PRO DEBRIDEMENT MUSCLE AND FASCIA 20 SQ CM/< Right 03/14/2021 DEBRIDEMENT SKIN, SUBCU, MUSCLE, LOWER EXTREMITY (WRVU 2.7) performed by Deonte De Los Santos MD at [facility] MA[facility] OR ? ? PRO DEBRIDEMENT SUBCUTANEOUS TISSUE 20 SQCM/< Right 03/18/2021 DEBRIDEMENT SKIN AND SUBCU, LOWER EXTREMITY (WRVU 1.01) performed by Lukasz Patterson MD at [facility] MA[facility] OR ??? PRO DECOMPRESS ANT/LAT+POST LEG CMPART Right 03/12/2021 FASCIOTOMY, LOWER LEG, ALL COMPARTMENTS -TIFFANY (WRVU 7.82) performed [facility] ??? PRO HEMORRHOIDECTOMY, INT/EXT, COMPLX N/A 10/28/2016 HEMORRHOIDECTOMY, INTERNAL & EXTERNAL, COMPLEX (WRVU 6.73) performed by Matt Sullivan MDat [facility] ? ? PRO INSERT VENA CAVA FILTER W/WO VASCULAR ACCESS AND RAD S&I N/A 03/12/2021 INSERT INTRAVASC VENA CAVA FILTER, ENDOVASCR APPR, WHEN PERFORMED (WRVU 4.71) performed by Steven Rodríguez MD at [facility] MA[facility] OR ??? PRO REMV VEIN CLOT CAVA-ILIAC, LEG INCIS Right 03/12/2021 THROMBECTOMY, VENA CAVA, ILIAC, FEMOROPOPLITEAL VEIN BY LEG INCISION (WRVU 13.37) performed by Steven Rodríguez MD at [facility] OR ??? PRO UPPER GI ENDOSCOPY, BIOPSY N/A 03/11/2021 EGD WITH BIOPSY (WRVU 2.49) performed by Titi Stroud MD at [facility] ??? PRO UPPER GI ENDOSCOPY, DIAGNOSTIC N/A 05/07/2020 EGD, UPPER GI ENDOSCOPY performed by Rc Carrasquillo MD at [facility] MEDICATIONS Current Outpatient Medications on File Prior to Visit Medication Sig Dispense Refill ??? acetaminophen (Tylenol) 325 mg Tablet Take 650 mg by mouth every 6 hours as needed for Pain. ??? apixaban (Eliquis) 5 mg Tablet Take 5 mg by mouth 2 times daily. ??? levothyroxine (SYNTHROID) 88 mcg Tablet Take 88 mcg by mouth daily. ??? omeprazole (PRILOSEC) 20 mg Capsule, Delayed Release(E.C.) Take 20 mg by mouth daily. No current facility-administered medications on file prior to visit. ADVERSE DRUG REACTIONS Allergies as of 06/07/2021 ??? (No Known Allergies) FAMILY HISTORY No known VTE SOCIAL HISTORY to Karlie, they are originally from [facility] [place] but moved to [place] [facility] in the They met in bible study [...] Negative except as above PHYSICAL EXAMINATION BP (!) 117/91 (Patient Position: Sitting) Pulse 68 Temp 35.8 ??C (96.4 ??F) (Temporal) Resp 16 Ht 173 cm (5' 8.11) Wt 92.8 kg (204 lb 9.6 oz) SpO2 98% BMI 31.01 kg/m?? GENERAL: Well-appearing, articulate white male. HEENT: Oropharynx clear; no mucosal lesions, petechiae, bleeding, thrush or ulcers. NECK: Supple; no cervical, supraclavicular or submental adenopathy. CHEST/LUNGS: Clear to auscultation/percussion. No rales, rhonchi, wheezes. HEART: Regular rate and rhythm; no murmur, rub, gallop GASTROINTESTINAL: Abdomen soft, non-tender, no hepatosplenomegaly. GENITOURINARY: Exam deferred. EXTREMITIES: Mild sock imprint both ankles without jaime edema. No erythema, tenderness or palpable cords. No varicose veins. No skin discoloration or hemosiderin deposits. No jaffe phlebectatica or other venous stasis changes Peripheral pulses palpable. MUSCULOSKELETAL: Full ROM all joints. No acutely inflamed joints. SKIN: No ecchymoses, petechiae, ulcers or rashes. LYMPH: No palpable lymph nodes. NEUROLOGIC: Alert, oriented. Speech clear, coherent. No focal deficits noted. PSYCHIATRIC: Appropriate affect, no apparent distress. LABORATORY STUDIES Latest Reference Range & Units 05/03/21 02:45 BUN 10 - 20 mg/dL 14 Creatinine 0.80 - 1.50 mg/dL 0.64 (L) Estimated GFR >=60 mL/min/1.73 m?? 106 [1] Latest Reference Range & Units 03/12/21 05:11 Total Protein 6.1 - 8.0 g/dL 6.4 Albumin 3.2 - 5.2 g/dL 3.4 Total Bilirubin 0.2 - 1.3 mg/dL 0.4 Bili, Direct 0.0 - 0.3 mg/dL 0.1 Alk Phos 40 - 130 unit/L 80 AST 0 - 39 unit/L 14 ALT 0 - 55 unit/L 13 RADIOGRAPHIC STUDIES I have personally reviewed images from the following studies where available: CT abdomen/pelvis, 02-21-2021 at [facility] FINDINGS: Lungs: The visualized lung bases [...] bilateral simple parapelvic renal cysts. EGD, 03-11-2021, [facility] Findings: ?The Z-line was irregular and was found 35 cm from the ?incisors. Biopsies were taken with a cold forceps for ?histology. ?A 5 cm hiatal hernia was present. ?A few 2 to 5 mm sessile polyps were found in the ?gastric body. ?The examined duodenum was normal. Colonoscopy, 03-11-2021, [facility] Impression: ?- Diverticulosis in the sigmoid colon??and in the descending colon. ??- No recurrent polyp at sigmoid colon diverticulum or in the rectum. CTPA, 03-12-2021, [facility] IMPRESSION ?? 1. No CT angiographic evidence [...] the chest. Venous duplex, right leg 03-12-2021, [facility] Findings: ?? RIGHT: Occlusive deep vein thrombosis [...] I think he is a candidate for mcc anticoagulation. PLAN/RECOMMENDATIONS I reviewed the difference between an unprovoked VTE event and one that may have been precipitated bytemporary risk factors (e.g., surgery, trauma, travel, hospitalization, immobilization) and discussed the additive nature of factors such as hereditary or acquired thrombophilia (e.g., factor V Leiden,PT [id number]), ABO blood type (non-O > O), dehydration, [...] reduction outweighs the risk for complications of long-term anticoagulation. Indefinite anticoagulation would be more strongly recommended in the event of a second VTE episode, especially an unprovoked one. In his case, it is possible that the event was triggered by an undetected COVID19 infection, despitean initially negative test (the tests aren't perfect) but I conceded that we cannot be sure. Otherwise I see no plausible trigger, making this equally likely to be an unprovoked event, in my view. Accordingly, his risk for recurrence is as high as 30% over the two years following discontinuation of anticoagulation. In addition to the unprovoked nature of the event his other clinically relevant riskfactor for recurrence is male sex and, to some extent, his age. In light of this, I think his recurrence risk is high enough and the consequences of recurrence potentially severe enough that consideration for ongoing anticoagulation [...] function to support ongoing anticoagulation with a DOAC. Given that he has tolerated apixaban so far, it is appropriate to continue and a dose reduction to the prophylactic dose may also be appropriate in the future, but given the profound nature of this event and the likely persistence of a prothrombotic state, I'm not in any hurry to do that. We reviewed the idea that should he [...] terribly, and he can put this off. We discussed the concept of hereditary and acquired thrombophilia and I reviewed with him that it ispossible that he has a hereditary pre-disposition to VTE despite the relatively unremarkable family history. We discussed the idea that the presence or absence of one of these conditions may have few, if any, implications for current or future anticoagulation recommendations but may have implications for family members. We reviewed the risks (potential for loss of privacy, insurance discrimination and heightened anxiety over results of genetic tests), benefits (potential explanation for VTE, guide for treatment, information for family members) and limitations (lack of predictive value for VTE recurrence risk) of testing, and he is interested in proceeding. Accordingly, he'll have his blood drawn today for a standard thrombophilia screening test panel, including levels of the endogenous anticoagulants, antithrombin, protein C and protein S, APC resistance/factor V Leiden, PT [id number] and antiphospholipid antibodies. Testing for LA will be omitted as he is currently on apixaban. In summary: ?? Continue apixaban for the mcc with periodic review of risk/benefit. ?? Continue with the 5 mg twice daily dose for now; can consider a dose reduction to 2.5 mg twice daily at some point in the future for continuing for the mcc ?? NO anticoagulant hiatus for elective procedures until at least August ?? Thrombophilia screening today Zander Waldron had the opportunity to ask questions and indicated that all his questions were answered to his satisfaction. He will follow up with me in approximately three weeks to discuss the results of the thrombosis testing, and I will finalize my recommendations at that time. Natacha Velásquez MD Sharepoint Application Developer, [facility] documented in this encounter Plan of Treatment Not on filedocumented as of this encounter Visit Diagnoses Diagnosis Acute 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 Anticoagulated by anticoagulation treatm ent Encounter for long-term (current) use of anticoagulants documented in this encounter Care Teams Style Advisor Relationship Specialty Start Date End Date Farhan Moss MD PCP - General Emergency Medicine 04/26/21 [address] [place] [address] documented as of this encounter
--- OUTSIDE RECORDS SUMMARY | 2022-01-27 16:02 | XMS_ITS | Encounter Summary ---
:1960 Author Organization [facility] [place] [address] Care Team Providers Name Role Phone Farhan Moss MD Primary Care Provider Encounter Details Date Type Department Care Team Description 04/29/2021 Orders Only Vascular Surgery at [facility], Acute deep vein [facility] RN thrombosis of left [facility] [place] [address] Social History Tobacco Use Types Packs/Day [...] Visit Diagnoses Diagnosis Acute deep vein thrombosis of left iliac vein documented in this encounter Care Teams Senior Water/Wastewater Engineer Relationship Specialty Start Date End Date Farhan Moss MD PCP - General Emergency Medicine 04/26/21 [address] [place], [place] [id number] documented as of this encounter
--- OUTSIDE RECORDS SUMMARY | 2022-01-27 16:02 | XMS_ITS | Encounter Summary ---
:1960 Author Organization [facility] [place] [address] Care Team Providers Name Role Phone None Primary Care Provider Unavailable Encounter Details Date Type Department Care Team Description 04/09/2021 Telephone Vascular Surgery at [facility] Rosalee Cherry, [place] [address] Social History Tobacco Use Types Packs/Day Years Used Date Smoking Tobacco: Former Smokeless Tobacco: Never Alcohol Use Standard Drinks/Week Comments Not Currently 0 (1 standard drink = 0.6 oz pure alcoho l) about once a month Sex Assigned at Date Recorded Not on file documented as of this encounter Miscellaneous Notes Telephone Encounter - [facility], RN - 04/09/2021 10:49 AM EST Mr. Waldron called the clinic yesterday and expressed concern about his low back pain. He said thatsince Dr. Rodríguez told him that he could increase his ambulation, he has experienced increased throbbing in his lower back. He said that the pain stays in the same place and does not radiate. He askedabout possibly getting an MRI. I told him that I would get in touch with Dr. Rodríguez and call him back today. After speaking with Dr. Rodríguez, I called Mr. Waldron to let him know that Dr. Rodríguez said that the LBP is not from a vascular problem. I suggested that he contact his PCP if the discomfort cont inues/worsens. documented in this encounter Plan of Treatment Not on filedocumented as of this encounter Visit Diagnoses Not on filedocumented in this encounter Care Teams Table Cover Folder Relationship Specialty Start Date End Date None PCP - General 03/12/21 04/25/21 None documented as of this encounter
--- OUTSIDE RECORDS SUMMARY | 2022-01-27 16:02 | XMS_ITS | Encounter Summary ---
:1960 Author Organization [facility] [place] [address] Care Team Providers Name Role Phone None Primary Care Provider Unavailable Encounter Details Date Type Department Care Team Description 04/12/[address] [facility] Martine Sam, [place] [address] Social History Tobacco Use Types Packs/Day Years Used Date Smoking Tobacco: Former Smokeless Tobacco: Never Alcohol Use Standard Drinks/Week Comments Not Currently 0 (1 standard drink = 0.6 oz pure alcoho l) about once a month Sex Assigned at Date Recorded Not on file documented as of this encounter Miscellaneous Notes Telephone Encounter - Martine Sam RN - 04/12/2021 10:48 AM EST Pt called to state that he is having sharp pain from his thigh to knee when he does his ankle stretches as recommended by PT after his vascular surgery on 03/12/21, 03/14/21 and 03/15/[address] Rodríguez. Vascular RN educated Pt that he is still in the process of healing and that he should do these stretches up to the point that he experiences the pain an then back off. Pt also asked about lower back pain as in a previous telephone note. Pt states that ice has helped this pain in the past, vascular RN suggested that it sounds muscular in nature and it could be as a result of healing and body mechanics / favoring with pain and that his posture may have changed but if coolness helps, he can also try heat as well as topical agents such as Icy hot. Pt is aware of his currently scheduled follow up on 04/26/21. documented in this encounter Plan of Treatment Not on filedocumented as of this encounter Visit Diagnoses Not on filedocumented in this encounter Care Teams Spot Cleaner Relationship Specialty Start Date End Date None PCP - General 03/12/21 04/25/21 None documented as of this encounter
--- OUTSIDE RECORDS SUMMARY | 2022-01-27 16:02 | XMS_ITS | Encounter Summary ---
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 Agata Harden MD [facility] Vascular Lab 3v Procedures Duplex for DVT, Leg, [facility] [place] [address] [place] [address] Referral ID Status Reason Start Expiration Visits Visits Date Date Requested Authorized [id number] Pending Specialty 03/28/2021 03/28/2022 1 1 Review Service Requested Reason for Visit Diagnostic Test (Routine) - Closed Specialty Diagnoses / Procedures Referred By Contact Refer red To Contact Diagnoses 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 Selene Barkley PA [facility] Vascular Lab 3v Procedures Duplex Study IVC/Iliac, [facility] [place] [address] [place] [address] Referral ID Status Reason Start Date Expiration Date Visits V isits Requested Authorized [id number] Closed Specialty 03/19/2021 03/19/2022 1 1 Service Requested Encounter Details Date Type Department Care Team Description 03/28/2021 Office Visit Vascular Surgery at [place], Agata May, Acu te bilateral deep vein thrombosis (DVT) of iliac veins of lower extremities; [facility] [place]C [place] [facility] [address] [place] [address] [place] [address] [phone] Social History Tobacco Use Types Packs/Day Years Used Date Smoking Tobacco: Former Smokeless Tobacco: Never Alcohol Use Standard Drinks/Week Comments Not Currently 0 (1 standard drink = 0.6 oz pure alcoho l) about once a month Sex Assigned at Date Recorded Not on file documented as of this encounter Last Filed Vital Signs Vital Sign Reading Time Taken Comments Blood Pressure 118/83 03/28/2021 3:38 PM EST Pulse 86 03/28/2021 3:38 PM EST Temperature - - Respiratory Rate - - Oxygen Saturation - - Inhaled Oxygen Concentration - - Weight 95.3 kg (210 lb) 03/28/2021 3:38 PM EST Height 175.3 cm (5' 9) 03/28/2021 3:38 PM EST Body Mass Index 31.01 03/28/2021 3:38 PM EST documented in this encounter Progress Notes Bre Franks RN - 03/28/2021 2:45 PM EST Hand hygiene done, gloves on. Dressing removed from right leg; loose DANO wrap toe crease to above knee, dry ABD pads over right medial and lateral lower leg incisions, and right upper inner thigh incision. Lateral incision with sutures intact, slight redness around sutures. Medial incision with kassandra intact. Tolerated well by patient. Gloves off, hand hygiene done. Left leg swollen and with scattered redness from ankle to groin. Patient's most discomfort is left buttock/hip that he rates as a 3 and is worse when sitting on a hard surface. Hand hygiene done. Per instructions from Dr. Harden, dry ABD pads to medial and lateral lower leg incisions, and to right upper inner thigh incision followed by DANO wrap to bilateral legs. Small DANO (x1) starting at toe crease, large DANO (x2) up to groin. Tolerated well by patient. Hand hygiene done. , Karlie, present during clinic visit. Supplies of ABD pads, small and large DANO and tape given to patient/ with instructions. Agata Pedraza MD - 03/28/2021 2:45 PM EST VASCULAR SURGERY POSTOP FOLLOW-UP SERVICE DATE: 03/29/2021 SERVICE TIME: 4:32 PM PRIMARY CARE PHYSICIAN: None REFERRING PROVIDER: Selene Barkley PA [facility] [place] [address] Operation: 03/12/2021 (Marcos) - Right femoral vein [...] Left common iliac vein stent placement (Express [id number], post-dilated to 12mm) - Left common and external iliac vein stent placement (Wallstent [id number]) - US guided right internal jugular vein access - IVC venogram - Retrieval of IVC filter - Perclose closure of left common femoral vein, manual pressure closure of right IJ vein History of Present Illness: Zander Waldron is a 60 y.o. male here for follow-up after recent admission for phlegmasia of his right lower extremity and extensive DVT. He underwent extensive venous recannulization with Dr. Rodríguez of his right leg, including open thrombectomy and stenting as well as fasciotomies. He subsequently then underwent left iliac venous thrombectomy and stenting. Patient is here for staple removal. He noted some mild erythema along his right calf and some mild tenderness. He was started on a course of Keflex. He continues to take his anticoagulation without issues. He denies any chest pain or shortness of breath. He reports that the swelling in his bilateral lower extremities continues to improve. I have never met the patient before, and Dr. Ford came in to join us and confirmed that both of his legs were improved from discharge. He was recently seen in the ED for somebuttock pain and pain behind his knee. It is only present with certain events. He does not note new leg swelling. There is a CT that was done, I do not have access to those images and by the report it was difficult to visualize the iliac veins. Physical Exam: PHYSICAL EXAM Physical Exam Performed BP 118/83 (BP Location (NBP): Left arm, Patient Position: Sitting, BP Cuff Sizes: Adult (25-34 cm)) Pulse 86 Ht 175.3 cm (5' 9) Wt 95.3 kg (210 lb) BMI 31.01 kg/m?? CONSTITUTIONAL: alert, well developed, well nourished, [...] DP and PT pulses are palpable DATA: Impression: 60 y.o. male here for follow-up after IVC and right iliac stenting, and right lower extremity thrombectomy and fasciotomies for phlegmasia as well as left iliac vein stenting in the settingof extensive DVT will temporarily off anticoagulation. He continues to take anticoagulation without issues. Today is the first time I have ever met him, however according to the team and the patient his bilateral lower extremities have only continue to improve. He does have some vague discomfort of his left buttock as well as behind his knee. We discussed interrogating this, however I noted that there was no prior left lower extremity DVT duplex, it would be difficult to compare to know if any clot there would be new. His left leg symptoms are quite minimal, and given that his swelling is only improved we opted to not obtain any additional imaging at this time. Patient was concerned about some mild erythema of his right medial calf, is currently on a course ofKeflex. Due to this he did not have his kassandra removed and would like to return in 1 week for reevaluation and removal at that time. I discussed with him that that would be fine Plan: -Follow-up in 1 week for vascular surgery clinic for evaluation of his lower extremities, as well asstable/suture removal -Continue his anticoagulation regimen -Patient and his are aware of signs and symptoms that should warrant more urgent evaluation -We also work to see if we can get the CT images from his recent ED stay transferred over to our system. 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
--- OUTSIDE RECORDS SUMMARY | 2022-01-27 16:02 | XMS_ITS | Encounter Summary ---
:1960 Author Organization [facility] [place] [address] Care Team Providers Name Role Phone None Primary Care Provider Unavailable Encounter Details Date Type Department Care Team Description 03/26/2021 Telephone Vascular Surgery at [facility] Bre Franks, [place] [address] Social History Tobacco Use Types Packs/Day Years Used Date Smoking Tobacco: Former Smokeless Tobacco: Never Alcohol Use Standard Drinks/Week Comments Not Currently 0 (1 standard drink = 0.6 oz pure alcoho l) about once a month Sex Assigned at Date Recorded Not on file documented as of this encounter Miscellaneous Notes Telephone Encounter - Bre Franks RN - 03/26/2021 12:02 PM EST Images from the original note were not included. This typewriter operator automatic fielded phone call from JOSE ELIAS Staples, with [facility] with concerns of right leg incisions. She is currently at the patient's home. Patient s/p right and left leg venous stenting, right leg fasciotomies; discharged from - 03/20/21. Bel states: -right medial fasciotomy incision, with kassandra, is now slightly red, warm and tender to touch (#4),'dull ache' when not touched, and no drainage. States the redness and warmth were not there yesterday. Patient temp 98.9 without chills. -right lateral fasciotomy site, with sutures, has scant serous drainage, no redness, warmth or pain. -overall leg swelling has decreased -the patient had left hip/groin pain yesterday, went to the local ED, was told there was 'inflammation', and given tramadol for pain which created a rash on the medial aspect of left leg from ~ankle to~groin; patient is not taking the medication any more -she is unable to send photos from the patient's home as no internet access and will try later. Discussed with her, the patient and of need to be seen in Vascular clinic earlier than the 04/04/21 scheduled appt. agrees to have call transferred to Vascular dry transfer worker for appt this week. Photos received from [facility] at 4:37 pm: documented in this encounter Plan of Treatment Not on filedocumented as of this encounter Visit Diagnoses Not on filedocumented in this encounter Care Teams Type Soldering Machine Tender Relationship Specialty Start Date End Date None PCP - General 03/12/21 04/25/21 None documented as of this encounter
--- OUTSIDE RECORDS SUMMARY | 2022-01-27 16:02 | XMS_ITS | Encounter Summary ---
:1960 Author Organization [facility] [place] [address] Care Team Providers Name Role Phone Fahran Moss MD Primary Care Provider Reason for Visit Reason Comments Follow-up Encounter Details Date Type Department Care Team Description 01/09/2022 Office Visit Hematology and Natacha Velásquez Acute de ep vein thrombosis (DVT) of both lower extremities, unspecified vein; Oncology at [facility] MD Shan Anticoagulated by anticoagulation treatm ent [facility] [address] [place] HEMATOLOGY/[place] [address] [place] DEPT[address] [phone] [place], [place] [address] Social History Tobacco Use Types [...] Mass Index 31.56 01/09/2022 11:22 AM EST documented in this encounter Progress Notes Natacha Velásquez MD - 01/09/2022 11:45 AM EST Images from the original note were not included. [facility] [address] [place] [address] THROMBOSIS FOLLOW UP DATE OF VISIT 01/09/2022 Patient Zander Waldron 1960 PRIMARY CARE PHYSICIAN Farhan Moss MD REASON FOR FOLLOW UP Review thrombophilia screening test results, anticoagulation recommendations HISTORY OF THE PRESENT ILLNESS Zander Waldron is a 61 y.o. man with bilateral DVTs, who is seen in follow up to review the results of thrombophilia screening. Jun was enjoying his usual state of excellent health until the day before (02-21-2021) when he developed spontaneous bilateral leg swelling and pain. He presented to [facility] in [facility] where a CT scan showed thrombosis in [...] to toes. He was originally seen at [facility] but transferred to [facility] where he was admitted to the vascular [...] for COVID19 when he was admitted to [facility] the first time but had a positive [...] reports continuing to feel quite well and is working [facility] He has full use of both legs along with minimal swelling and minimal pain, though he notes some tenderness on the bottom of his feet and some numbness and tingling in his right thigh. He particularly notes aching in the legs after being on his feet on concrete all day at works. He hasn't been wearing his compression stockings because they're somewhat worn out but has a new prescription from Dr. Rodríguez. He's had no bleeding problems with the apixaban and no problem taking the twice aday medication. He has chronic low back pain that has not been much of an issue of late. A follow up duplex study today shows continued improvement in recanalization of the previously involved vein segments in the right leg. PAST MEDICAL HISTORY 1. Venous thromboembolism, -2020, as above Bilateral DVTs, Rx apixaban Progression after apixaban hiatus 03-11-2021 [...] 3.66) performed by Rc Carrasquillo MD at [facility] ENDOSCOPY ??? PRO COLONOSCOPY, DIAGNOSTIC N/A 03/11/2021 COLONOSCOPY, DIAGNOSTIC performed by Titi Stroud MD at [facility] ENDOSCOPY ??? PRO COLONOSCOPY, FLEX, W/DIR SUBMUC INJECT N/A 05/07/2020 COLONOSCOPY WITH DIRECTED SUBMUCOSAL INJ (WRVU 3.66) performed by Rc Carrasquillo MD at [facility] ENDOSCOPY ??? PRO COLONOSCOPY, REMV LESN, SNARE N/A 12/11/2016 COLONOSCOPY, POLYPECTOMY, REMOVAL LESION BY SNARE (WRVU 4.67) performed by Jewels Wilkerson MD at [facility] ENDOSCOPY ??? PRO COLONOSCOPY, REMV LESN, SNARE N/A 05/07/2020 COLONOSCOPY, POLYPECTOMY, REMOVAL LESION BY SNARE (WRVU 4.67) performed by Rc Carrasquillo MD at [facility] ENDOSCOPY ? ? PRO DEBRIDEMENT MUSCLE AND FASCIA 20 SQ CM/< Right 03/14/2021 DEBRIDEMENT SKIN, SUBCU, MUSCLE, LOWER EXTREMITY (WRVU 2.7) performed by Deonte De Los Santos MD at [facility] MAIN OR ? ? PRO DEBRIDEMENT SUBCUTANEOUS TISSUE 20 SQCM/< Right 03/18/2021 DEBRIDEMENT SKIN AND SUBCU, LOWER EXTREMITY (WRVU 1.01) performed by Lukasz Patterson MD at [facility] MAIN OR ??? PRO DECOMPRESS ANT/LAT+POST LEG CMPART Right 03/12/2021 FASCIOTOMY, LOWER LEG, ALL COMPARTMENTS -TIFFANY (WRVU 7.82) [facility] ??? PRO HEMORRHOIDECTOMY, INT/EXT, COMPLX N/A 10/28/2016 HEMORRHOIDECTOMY, INTERNAL & EXTERNAL, COMPLEX (WRVU 6.73) performed by Matt Sullivan MDat [facility] OSC ? ? PRO INSERT VENA CAVA FILTER W/WO VASCULAR ACCESS AND RAD S&I N/A 03/12/2021 INSERT INTRAVASC VENA CAVA FILTER, ENDOVASCR APPR, WHEN PERFORMED (WRVU 4.71) performed by Steven Rodríguez MD at [facility] MAIN OR ??? PRO REMV VEIN CLOT CAVA-ILIAC, LEG INCIS Right 03/12/2021 THROMBECTOMY, VENA CAVA, ILIAC, FEMOROPOPLITEAL VEIN BY LEG INCISION (WRVU 13.37) performed by Steven Rodríguez MD at [facility] MAIN OR ??? PRO UPPER GI ENDOSCOPY, BIOPSY N/A 03/11/2021 EGD WITH BIOPSY (WRVU 2.49) performed by Titi Stroud MD at [facility] ENDOSCOPY ??? PRO UPPER GI ENDOSCOPY, DIAGNOSTIC N/A 05/07/2020 EGD, UPPER GI ENDOSCOPY performed by Rc Carrasquillo MD at [facility] ENDOSCOPY MEDICATIONS Current Outpatient Medications [...] visit. ADVERSE DRUG REACTIONS Allergies as of 01/09/2022 ??? (No Known Allergies) FAMILY HISTORY No known VTE SOCIAL HISTORY to Karlie, they are originally from [facility] but moved to [facility] in the They met in bible study [...] Negative except as above PHYSICAL EXAMINATION BP 126/89 (Patient Position: Sitting) Pulse 76 Temp 36.2 ??C (97.2 ??F) (Temporal) Resp 18 Ht 173.5 cm (5' 8.31) Wt 95 kg (209 lb 7 oz) SpO2 98% BMI 31.56 kg/m?? GENERAL: Well-appearing, articulate white male. EXTREMITIES: Right leg with well-healed vertical surgical scars laterally and medially. No edema. LABORATORY STUDIES RADIOGRAPHIC STUDIES I have personally reviewed images from the following studies where available: CT abdomen/pelvis, 02-21-[address] [facility] FINDINGS: Lungs: The visualized lung bases appear [...] simple parapelvic renal cysts. EGD, 03-11-2021, [facility] Findings: ?The Z-line was irregular and was found 35 cm from the ?incisors. Biopsies were taken with a cold forceps for ?histology. ?A 5 cm hiatal hernia was present. ?A few 2 to 5 mm sessile polyps were found in the ?gastric body. ?The examined duodenum was normal. Colonoscopy, 03-11-2021, [facility] Impression: ?- Diverticulosis in the sigmoid colon??and in the descending colon. ??- No recurrent polyp at sigmoid colon diverticulum or in the rectum. CTPA, 03-12-2021, [facility] IMPRESSION ?? 1. No CT angiographic evidence [...] chest. Venous duplex, right leg 03-12-2021, [facility] Findings: ?? RIGHT: Occlusive deep vein thrombosis [...] gastrocnemius vein in the proximal posterior calf. Venous duplex, bilateral legs, 01-09-2022 RIGHT: Patent common femoral vein and popliteal vein with spontaneous, respirophasic Doppler waveforms that respond normally to augmentation maneuvers. The common femoral vein, saphenofemoral junction, femoral vein through the thigh and popliteal vein are fully compressible. Patent posterior tibial and peroneal veins with no evidence of thrombus. ?? LEFT: Patent common femoral vein and popliteal vein with spontaneous, respirophasic Doppler waveforms that respond normally to augmentation maneuvers. The common femoral vein, saphenofemoral junction, femoral vein through the thigh and popliteal vein are fully compressible. Patent posterior tibial and peroneal veins with no evidence??of thrombus. ? Interpretation: ?? RIGHT: No evidence of lower extremity deep venous thrombosis. Improvement compared to previous exam 06/04/21 where the was femoral vein and profunda vein thrombus in the proximal thigh. ?? LEFT: No evidence of lower extremity deep venous thrombosis. No significant change compared to previous exam 06/04/21. ? IMPRESSION Zander Waldron is a 61 y.o. man with an episode of apparently [...] I think he is a candidate for halfway anticoagulation, despite the absence of a defined [...] acquired thrombophilia (e.g., factor V Leiden, PT [id number]), ABO blood type (non-O > O), dehydration, [...] at the current 5 mg twicedaily dose. Given the profound nature of this VTE event and the fact that he is doing so well on thecurrent anticoagulant dose, I'm not in any hurry to switch him to the lower dose of apixaban at thistime. Over the years, the risk/benefit calculation for anticoagulation may change; for example, if bleeding becomes an issue then a dose reduction can be considered. We reviewed the idea that should he require surgery or other invasive procedures, temporary interruption of apixaban is recommended. Given that he is now over 6 months out from the index event, the anticoagulation can be held temporarily with a low risk for VTE during the hiatus. Generally, apixaban is held for 48-72 hours prior to the procedure and restarted the evening of or day after. NO LMWH bridge is required. I told him I will be happy to help out with specific recommendations should the need arise. In summary: ?? Continue apixaban for the halfway with periodic review of risk/benefit. ?? Continue with the 5 mg twice daily dose for now; defer to Dr. Moss to manage the prescription. ?? Anticoagulant hiatus required for invasive procedures (2-3 day hold without LMWH bridge). ?? No further thrombophilia screening ?? Compression stockings for comfort Zander Waldron had the opportunity to ask questions and indicated that all his questions were answered to his satisfaction. While I won't plan to see him back routinely, I'll be happy to see him back at any time in the future as appropriate and would especially welcome the opportunity to provide re commendations for anticoagulant management around invasive procedures should the need arise. Natacha Velásquez MD Melt Room Operator, [facility] documented in this encounter Plan of Treatment Not on filedocumented as of this encounter Visit Diagnoses Diagnosis Acute deep vein thrombosis (DVT) of both lower extremities, unspecified vein Anticoagulated by anticoagulation treatm ent Encounter for long-term (current) use of anticoagulants documented in this encounter Care Teams Transformer Inspector Relationship Specialty Start Date End Date Farhan Moss MD PCP - General Emergency Medicine 04/26/21 [address] [place] [address] documented as of this encounter
--- OUTSIDE RECORDS SUMMARY | 2022-01-27 16:02 | XMS_ITS | Encounter Summary ---
:1960 Author Organization [place] [address] Care Team Providers Name Role Phone Farhan Moss MD Primary Care Provider Reason for Referral Diagnostic Test (Routine) - Pending Review Specialty Diagnoses / Procedures Referred By Contact Refer red To Contact Diagnoses IVC thrombosis Marlene Smith MD [facility] Vascular Lab 3v Procedures Duplex Study for DVT, Bilat legs [facility] VASCULAR SURGERY [place] [id number] [place] [id number] Referral ID Status Reason Start Expiration Visits Visits Date Date Requested Authorized [id number] Pending Specialty 06/05/2021 06/05/2022 1 1 Review Service Requested Encounter Details Date Type Department Care Team Description 06/04/2021 Office Visit Vascular Surgery at Marlene Smith, [place] C thrombosis[place] [facility] [place] vein thrombosis (DVT) of il iac vein of both lower extremities [facility] [address] [place] VASCULAR SURGERY [id number] [place] [address] [phone] Social History Tobacco Use Types Packs/Day Years Used Date Smoking Tobacco: Former Smokeless Tobacco: Never Alcohol Use Standard Drinks/Week Comments Not Currently 0 (1 standard drink = 0.6 oz pure alcoho l) about once a month Sex Assigned at Date Recorded Not on file documented as of this encounter Last Filed Vital Signs Vital Sign Reading Time Taken Comments Blood Pressure 133/77 06/04/2021 9:07 AM EDT Pulse 63 06/04/2021 9:07 AM EDT Temperature - - Respiratory Rate - - Oxygen Saturation - - Inhaled Oxygen Concentration - - Weight 93.4 kg (206 lb) 06/04/2021 9:07 AM EDT reported Height 172.7 cm (5' 8) 06/04/2021 9:07 AM EDT reported Body Mass Index 31.32 06/04/2021 9:07 AM EDT documented in this encounter Progress Notes Padmini Jones MD - 06/04/2021 10:30 AM EDT Vascular Surgery Clinic Progress Note Subjective: Patient doing well, has some areas of numbness in areas near the incisions, which has improved Current Outpatient Medications: ??? apixaban (Eliquis) 5 mg Tablet, Take 5 mg by mouth 2 times daily., Disp: , Rfl: ??? levothyroxine (SYNTHROID) 88 mcg Tablet, Take 88 mcg by mouth daily., Disp: , Rfl: ??? omeprazole (PRILOSEC) 20 mg Capsule, Delayed Release(E.C.), Take 20 mg by mouth daily., Disp: , Rfl: ??? acetaminophen (Tylenol) 325 mg Tablet, Take 650 mg by mouth every 6 hours as needed for Pain., Disp: , Rfl: Objective: BP 133/77 HR [...] left femoral vein (05/02/21) doing well post-operatively. Plan: Continue eliquis, plan for at least a year (avoid trauma to head) Return in 6mo with duplex Recommend to use compression stockings if he has swelling of his leg I interviewed and examined the patient. I reviewed his studies. I agree with the above note and plan. 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 He has no leg swelling. His incisions are all well-healed. His duplex shows widely patent bilateral common iliac and vena cava stents with good respiratory phasicity. He is currently on Eliquis for anticoagulation. We discussed the potential need for long-term anticoagulation especially considering the extensive nature of the stenting that he has had and is a vena cava and iliac veins. At a minimum he would need to take this for 1 year. He is due to see that he siding stapler for further discu ssion related to the potential for any hypercoagulable state though this did seem to occur in the midst of an active Covid infection. I will plan to see him back in the office in 6 months with repeat noninvasive vascular studies. documented in this encounter Plan of Treatment Not on filedocumented as of this encounter Results Duplex Study for DVT, Bilat legs (01/09/2022 9:03 AM EST) Component Value Ref Test Analysis Performed At [facility] Range Method Time Signature VB Text Department: Vascular Surgery Lab VASCUBASE Report Patient: [id number] (AMILCAR WALDRON) CPT: 83419 Referring Physician: MARLENE SMITH ?? Indications: f/u IVC and bilateral iliac [...] previous exam 06/04/21. 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
--- OUTSIDE RECORDS SUMMARY | 2022-01-27 16:02 | XMS_ITS | Encounter Summary ---
:1960 Author Organization [facility] [place] [address] Care Team Providers Name Role Phone Farhan Moss MD Primary Care Provider Reason for Referral Diagnostic Test (Routine) - Closed Specialty Diagnoses / Procedures Referred By Contact Refer red To Contact Radiology Diagnoses Acute deep vein thrombosis of left iliac vein Steven Rodríguez MD [facility] Interventionl Rad Procedures VS Venogram Vascular Surgery [facility] [place] [address] [place] [address] Referral ID Status Reason Start Date Expiration Date Visits V isits Requested Authorized [id number] Closed Specialty 05/02/2021 03/01/2022 1 1 Service Requested Encounter Details Date Type Department Care Team Description 04/29/2021 Orders Only Vascular Surgery at [facility] [place] [facility] [place] left [facility] [place] [address] Social History Tobacco Use Types Packs/Day Years Used Date Smoking Tobacco: Former Smokeless Tobacco: Never Alcohol Use Standard Drinks/Week Comments Not Currently 0 (1 standard drink = 0.6 oz pure alcoho l) about once a month Sex Assigned at Date Recorded Not on file documented as of this encounter Progress Notes Rosalee Cherry RN - 04/29/2021 9:09 AM EST I spoke with Mr. Waldron on the phone regarding his upcoming procedure - Left leg venogram: That hewill need to stop his Eliquis 2 days before the procedure, I.e. if the procedure is scheduled for , his last dose of Eliquis would be this evening. He was aware that he would need to be on Lovenox once the Eliquis is stopped. I asked him if he was comfortable self-administering this medicationand he was not, however there is a person with him who would be able to do it. I confirmed his pharmacy with him and told him that as soon as the procedure is scheduled/confirmed, the shearer operator would also reach out to him. He voiced understanding and I gave him the Vascular Secretaries' phone number so he could reach myself or another RN in the clinic with any questions. I confirmed with Dr. Rodríguez that the patient is not administer Lovenox on the morning of his procedure. documented in this encounter Plan of Treatment Not on filedocumented as of this encounter Results VS Venogram Vascular Surgery (05/02/2021 1:44 PM EST) Anatomical Region Laterality Modality X-Ray Angiography Specimen (Source) Anatomical Location Collection Method / Collectio n Time Received Time / Laterality Volume Narrative 05/21/2021 2:38 PM EDT Attestation signed by Steven Rodríguez MD at 05/20/2021 ??4:22 PM Attending Attestation ?? I was the attending physician supervisin g the resident/fellow in the above care and I was present with the resident/fell ow for the entire procedure. ?? I was present during the intraservice ti me as documented by the sedation RN. ?? Vascular Surgery Procedure Note Name: Zander Waldron Pre-procedure Dx: LLE DVT Post-procedure Dx: Same Procedure: 1. Bilateral femoral venous access 2. Selective catheterization of bilatera l iliac veins, IVC 3. Cavogram 4. Stent placement, left common iliac ve in (Express stent [id number]), postdilated with [id number] Ozan 5. Balloon venoplasty, left femoral vein (Feroz [id number]) 6. Stent placement, left femoral vein (W allstent [id number]), postdilated with 14x40 mm [place] 7. Perclose closure, left femoral vein. ??Manual closure, right femoral vein Surgeons: Steven Rodríguez MD - vascular surgeon Tianna King MD - vascular surgery r esident Anesthesia: Conscious sedation, local 15 cc 1% lidocaine Medications: Fentanyl: 500 mcg ?? Versed: 6 mg Heparin: 48636 units ?? Antibiotics: 2 gm Ancef TPA: 8.8mg (Powerpulse with Angiojet) Fluoro Time: 68.8 min Contrast: 190 cc EBL: 10cc Indications for the Procedure: Zander kelley is a 60 year old male who was recently admitted for phlegmasia of his bilateral lower extremities and extensive DVT of his vena cava and bilat eral iliac and femoral veins in the [facility] of [facility]. ??He underwent extensiv e venous recannulization of his right leg 03/12/21, including open thrombectomy and stenting as well as fasciotomies. ??He subsequently then underwent left iliac v enous thrombectomy and stenting on 03/15/21. ??The patient underwent duplex of his IVC/iliac veins and was found to have occlusive thrombus within the stent ed left common and external iliac veins. He presents today for left lower extrem ity venogram with procedures as indicated. Findings: - Sheath access in left groin. - Venogram demonstrated: complete thromb osis of previously placed left iliac stents to level of common femoral vein. ??Disassociation of previously placed Express and Wallstent likely due to fore shortening of Wallstent. ??Attempts to cross into IVC from ipsilateral side uns uccessful. - Sheath access in right groin - Intervention: Through and through wire access obtained from right side via interstices of previously placed right i liac Wallstent. ??Angiojet powerpulse and thrombectomy of left femoral and iliac v eins. ??Left iliac vein stent placement bridging previously placed stents (Expre ss stent [id number]), postdilated with [id number] Ozan. ??Extension of stents d istally into femoral vein (Wallstent [id number]), postdilated with 14x40 mm Atla s. - Completion angiogram demonstrated: alona sk flow through left femoral and iliac veins into IVC. ??Flow through previousl y placed right iliac/femoral vein stent into IVC - Closure device: Perclose, left femoral vein. ??Manual pressure, right femoral vein. Technical Procedure: ?The patient was correc tly identified in the pre-procedure holding area. ??After a discussion of the risks and benefits, operative consent was obtained. ??The patient was brought to [facility] angio suite and placed supine upon the angio table. The patient was prepped and draped in the usual sterile fashion. A time-out was performed by the attending surgeon. Retrograde percutaneous access was obtained in the left common femoral vein via micropuncture technique under ultrasound and flouroscopic guidance aft er infiltration with local anesthetic. This was then up-sized to a 10 cm 5F she ath over a J-wire. Venography was performed through the sheath with the ab ove findings. ?A wire was unable to b e passed from the left side through the thrombus present in the previously place d stents, despite multiple attempts with a variety of wires and catheters. ??Perc utaneous access was then obtained on the right side via micropuncture technique u nder ultrasound and flouroscopic guidance after infiltration with local a nesthetic. ??This was then upsized to a 10cm 5F sheath over a J wire. ??A SOS ca theter and stiff glidewire were used to cannulate the left common iliac vein thr ough the interstices of the previously placed right sided Wallstent. ??The thro mbus and area of stent dissociation were crossed using an 018 victory wire and Qu ick Cross catheter. ??This was snared from the left side using an En Snare aft er balloon venoplasty with a [id number] Ozan in the left iliac vein thrombus and right Wallstent interstices to ensure both wires were in the same plane . ??Through and through wire access was obtained from the right to the left side . ??A KMP catheter was advanced up the left side into the IVC and a [place] cathet er was advanced from the right side and the single wire was replaced with a wire from each side into the IVC. ?The left sided sheath was upsized to a 10F 10cm sheath and the Zelante catheter was used to first perfo rm Power pulse with tPA followed by thrombectomy. ??The tPA was allowed to d well for 15 minutes prior to thrombectomy. ?A [id number] Express sten t was then inserted from the left side and used to bridge the previously placed jeffrey nts which had become dissociated. ??This was post-dilated with a 12mm Ozan bal loon. ??A [id number] Wallstent was then placed at the distal aspect of the previ ouly placed Wallstent, ensuring adequate overlap. ??This was then postdilated wit h a 14mm balloon. ??Completion venography was performed with the findings describe d above. ?The left sheath was re moved after deployment of a Perclose device and manual pressure was held over the pu ncture site for 15 minutes. ??The right sheath was removed and manual pressure w as held over the puncture site for 15 minutes. ??Hemostasis was satisfactory. The puncture site was dressed with a dry gauze and tegaderm. ?Dr. Rodríguez, the attend ing surgeon, was scrubbed and present for the entire procedure. ??Due to the painful n ature of the procedure, split doses of fentanyl and Versed were administered by the IR nurse during continuous monitoring of pulse, blood pressure and oxygen saturation. Closure method: Perclose (left) Complications: None apparent Disposition: To recovery, flat for 2 hours Admission overnight for observation and hydration Thank you for letting us participate in the care of this patient. ??If you are a health care provider and have any questi ons regarding this report, please contact the number below. ??For patients who have questions please contact the health gericare aide teacher that requested your imaging first. ? Electronically signed by: Steven Rodríguez MD, [facility] ([phone]), at 05/21/2021 2:38 PM Procedure Note Setven Rodríguez MD - 05/21/2021Format ting of this note might be different from the original. Attestation signed by Steven Rodríguez MD at 05/20/2021 4:22 PM Attending Attestation I was the attending physician supervisin g the resident/fellow in the above care and I was present with the resident/fell ow for the entire procedure. I was present during the intraservice ti me as documented by the sedation RN. Vascular Surgery Procedure Note Name: Zander Waldron Pre-procedure Dx: LLE DVT Post-procedure Dx: Same Procedure: 1. Bilateral femoral venous access 2. Selective catheterization of bilatera l iliac veins, IVC 3. Cavogram 4. Stent placement, left common iliac ve in (Express stent [id number]), postdilated with [id number] Ozan 5. Balloon venoplasty, left femoral vein (Feroz [id number]) 6. Stent placement, left femoral vein (W allstent 05c37wq), postdilated with 14x40 mm [place] 7. Perclose closure, left femoral vein. Manual closure, right femoral vein Surgeons: Steven Rodríguez MD - vascular surgeon Tianna King MD - vascular surgery r esident Anesthesia: Conscious sedation, local 15 cc 1% lidocaine Medications: Fentanyl: 500 mcg Versed: 6 mg Heparin: 55803 units Antibiotics: 2 gm Ancef TPA: 8.8mg (Powerpulse with Angiojet) Fluoro Time: 68.8 min Contrast: 190 cc EBL: 10cc Indications for the Procedure: Zander kelley is a 60 year old male who was recently admitted for phlegmasia of his bilateral lower extremities and extensive DVT of his vena cava and bilat eral iliac and femoral veins in the [facility] of [facility]. He underwent extensive venous recannulization of his right leg 1/11/22, including open thrombectomy and stenting as well as fasciotomies. He subsequently then underwent left iliac v enous thrombectomy and stenting on 03/15/21. The patient underwent duplex of his IVC/iliac veins and was found to have occlusive thrombus within the stent ed left common and external iliac veins. He presents today for left lower extrem ity venogram with procedures as indicated. Findings: - Sheath access in left groin. - Venogram demonstrated: complete thromb osis of previously placed left iliac stents to level of common femoral vein. Disassociation of previously placed Express and Wallstent likely due to fore shortening of Wallstent. Attempts to cross into IVC from ipsilateral side uns uccessful. - Sheath access in right groin - Intervention: Through and through wire access obtained from right side via interstices of previously placed right i liac Wallstent. Angiojet powerpulse and thrombectomy of left femoral and iliac v eins. Left iliac vein stent placement bridging previously placed stents (Expre ss stent [id number]), postdilated with 30u91xi Ozan. Extension of stents dis tally into femoral vein (Wallstent 15s47zc), postdilated with 14x40 mm Atla s. - Completion angiogram demonstrated: alona sk flow through left femoral and iliac veins into IVC. Flow through previously placed right iliac/femoral vein stent into IVC - Closure device: Perclose, left femoral vein. Manual pressure, right femoral vein. Technical Procedure: The patient was correctly identified in the pre-procedure holding area. After a discussion of the risks an d benefits, operative consent was obtained. The patient was brought to the angio suite and placed supine upon the angio table. The patient was prepped and draped in the usual sterile fashion. A time-out was performed by the attending surgeon. Retrograde percutaneous access was obtained in the left common femoral vein via micropuncture technique under ultrasound and flouroscopic guidance aft er infiltration with local anesthetic. This was then up-sized to a 10 cm 5F she ath over a J-wire. Venography was performed through the sheath with the ab ove findings. A wire was unable to be passed from the left side through the thrombus present in the previously place d stents, despite multiple attempts with a variety of wires and catheters. Percut aneous access was then obtained on the right side via micropuncture technique u nder ultrasound and flouroscopic guidance after infiltration with local a nesthetic. This was then upsized to a 10cm 5F sheath over a J wire. A SOS cath eter and stiff glidewire were used to cannulate the left common iliac vein thr ough the interstices of the previously placed right sided Wallstent. The thromb us and area of stent dissociation were crossed using an 018 victory wire and Qu ick Cross catheter. This was snared from the left side using an En Snare aft er balloon venoplasty with a [id number] Ozan in the left iliac vein thrombus and right Wallstent interstices to ensure both wires were in the same plane . Through and through wire access was obtained from the right to the left side . A KMP catheter was advanced up the left side into the IVC and a [place] cathet er was advanced from the right side and the single wire was replaced with a wire from each side into the IVC. The left sided sheath was upsized to a 10F 10cm sheath and the Zelante catheter was used to first perfo rm Power pulse with tPA followed by thrombectomy. The tPA was allowed to dwe ll for 15 minutes prior to thrombectomy. A [id number] Express stent was then insert ed from the left side and used to bridge the previously placed jeffrey nts which had become dissociated. This was post-dilated with a 12mm Ozan bal loon. A [id number] Wallstent was then placed at the distal aspect of the previ ouly placed Wallstent, ensuring adequate overlap. This was then postdilated with a 14mm balloon. Completion venography was performed with the findings describe d above. The left sheath was removed after deplo yment of a Perclose device and manual pressure was held over the pu ncture site for 15 minutes. The right sheath was removed and manual pressure w as held over the puncture site for 15 minutes. Hemostasis was satisfactory. Th e puncture site was dressed with a dry gauze and tegaderm. Dr. Rodríguez, the attending surgeon, was scrubbed and present for the entire procedure. Due to the painful lore ure of the procedure, split doses of fentanyl and Versed were administered by the IR nurse during continuous monitoring of pulse, blood pressure and oxygen saturation. Closure method: Perclose (left) Complications: None apparent Disposition: To recovery, flat for 2 hours Admission overnight for observation and hydration Thank you for letting us participate in the care of this patient. If you are a health care provider and have any questi ons regarding this report, please contact the number below. For patients w ho have questions please contact the health gericare aide teacher that requested your imaging first. Steven Rodríguez MD IMG IR ORDERABLES (ABNORMAL) Creatinine (05/02/2021 8:22 AM EST) Analysis Performed At [facility] Time Signature Creatinine 0.66 (L) 0.80 - [facility] 1.50 mg/dL [facility] Estimated GFR 104 >=60 [facility] mL/min/1.7 [facility] 3 ?? [facility] Comment: This patient? s estimated glomerular filtration rate (eGFR) is between 104 mL/min/1.73 m2 (patients with less muscl e mass per kg body weight) and 121 mL/min/1.73 m2 (patients with more muscl e mass per kg body weight) as determined by the CKD-EPI equation. Asse ssment of eGFR is not appropriate when creatinine concentrations are rapidly ch anging. For clinical decisions where creatinine clearance will affect therapy , a 24-hour urine creatinine clearance may be advised. Assignment of CKD stage 1 - 5 for patien ts with an eGFR near the transition point between stages may be based on cli nical assessment of muscle mass and symptoms in addition to eGFR. Specimen Anatomical Collection Method Collection Time Receive d Time (Source) Location / / Volume Laterality Blood 05/02/2021 8:22 AM 8:32 EST AM EST Resulting Agency Comment Spec In Lab Steven Rodríguez MD CHEMISTRY ORDERABLES Performing Organization Address City/State/[place] [address] documented in this encounter Visit Diagnoses Diagnosis Acute deep vein thrombosis of left iliac vein 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) Compression of vein documented in this encounter Care Teams Quality Analyst Relationship Specialty Start Date End Date Farhan Moss MD PCP - General Emergency Medicine 04/26/21 [address] [place] [address] documented as of this encounter
--- OUTSIDE RECORDS SUMMARY | 2022-01-27 16:02 | XMS_ITS | Encounter Summary ---
:1960 Author Organization [facility] [place] [address] Care Team Providers Name Role Phone None Primary Care Provider Unavailable Encounter Details Date Type Department Care Team Description 03/20/2021 Telephone Internal Medicine at [facility] Angelita Dhillon [address] [place] [address] Social History Tobacco Use Types Packs/Day Years Used Date Smoking Tobacco: Former Smokeless Tobacco: Never Alcohol Use Standard Drinks/Week Comments Not Currently 0 (1 standard drink = 0.6 oz pure alcoho l) about once a month Sex Assigned at Date Recorded Not on file documented as of this encounter Miscellaneous Notes Telephone Encounter - Angelita Dhillon - 03/20/2021 5:05 PM EST 1st attempt to contact Pt at [x] Left Message for Pt to return call to the Office [] Unable to leave message the mailbox is full and cannot accept any messages at this time. Karthik [] Unable to leave message the person you are trying to reach has a voicemail box that has not beenset up yet. Please try again later. Karthik. [] Line Busy [] Other: LVM for pt to sched elastic tape inserter visit from [facility] sent documented in this encounter Plan of Treatment Not on filedocumented as of this encounter Visit Diagnoses Not on filedocumented in this encounter Care Teams Burglary Investigator Relationship Specialty Start Date End Date None PCP - General 03/12/21 04/25/21 None documented as of this encounter
--- OUTSIDE RECORDS SUMMARY | 2022-01-27 16:02 | XMS_ITS | Encounter Summary ---
:1960 Author Organization [facility] [place] [address] Care Team Providers Name Role Phone Farhan Moss MD Primary Care Provider Reason for Referral Diagnostic Test (Routine) - Closed Specialty Diagnoses / Procedures Referred By Contact Refer red To Contact Radiology Diagnoses Acute deep vein thrombosis of left iliac vein Steven Rodríguez MD [facility] Interventionl Rad Procedures VS Venogram Vascular Surgery [facility] [address] [place] [address] Referral ID Status Reason Start Date Expiration Date Visits V isits Requested Authorized [id number] Closed Specialty 05/02/2021 03/01/2022 1 1 Service Requested Reason for Visit Auth/Cert Specialty Diagnoses / Procedures Referred By Contact Refer red To Contact Diagnoses DVT (deep venous thrombosis) potential MO Procedures EMERGENCY OBSVO Referral ID Status Reason Start Date Expiration Date Visits Requ ested Visits Authorized [id number] 1 1 Encounter Details Date Type Department Care Team Description 05/02/2021 Hospital Encounter Radiology at [facility] Steven Rodríguez Acute deep vein thrombosis o f left iliac vein; [facility] MD Deshawn IVC (inferior vena cava obstruction) Drive [place], [place] C[place] [address] VASCULAR SURGERY [phone] [place] [address] Social History Tobacco Use Types Packs/Day Years Used Date Smoking Tobacco: Former Smokeless Tobacco: Never Alcohol Use Standard Drinks/Week Comments Not Currently 0 (1 standard drink = 0.6 oz pure alcoho l) about once a month Sex Assigned at Date Recorded Not on file documented as of this encounter Last Filed Vital Signs Vital Sign Reading Time Taken Comments Blood Pressure 122/89 05/02/2021 3:00 PM EST Pulse 66 05/02/2021 4:15 PM EST Temperature 35.9 ??C (96.7 ??F) 05/02/2021 1:45 PM EST Respiratory Rate 17 05/02/2021 4:00 PM EST Oxygen Saturation 98% 05/02/2021 4:15 PM EST Inhaled Oxygen Concentration - - Weight 92.2 kg (203 lb 4.2 oz) 05/02/2021 8:41 AM EST Height - - Body Mass Index 30.02 04/26/2021 9:43 AM EST documented in this encounter Discharge Instructions Discharge InstructionsBerkley Portillo RN - 05/02/2021 10:28 AM EST [facility] Interventional Radiology Post Angiography Instructions Procedure: LLE Venogram Puncture Site: L Groin Date: 05/02/21 Physician: Dr. Rodríguez and 1. At home we advise you to rest quietly in bed or on the couch with your hip straight until the next morning. Until the next morning you may get up only to go to the bathroom. 2. Resume your previous diet. Drink 6-8 ounces of fluid per hour for the next 8 hours. Avoid alcoholic or caffeinated beverages for 24 hours. 3. Avoid strenuous activity for the next 48 hours, particularly in the next 24 hours. Stair climbingshould be kept to a minimum. Do not lift objects heavier than 10-15 pounds for the next 48 hours Avoid straining for bowel movements as you can pop open the clot that has formed on the artery. 4. If you develop bulging under the skin or bleeding at the puncture site, put direct pressure on the puncture site for 15 minutes and call your doctor. If the bleeding persists, reapply pressure, and go to your local Emergency Department. 5. If you notice a sudden change in the feeling (numbness, tingling and/or pain) of your leg on the side of the puncture call your doctor. 6. You may develop a bruise at the puncture site. This should go away within a week to 10 days. If abulge develops after the first three days, call your doctor or the Radiology/Vascular Department here. Report signs of infection (redness, swelling, discharge, soreness, or fever) to your doctor. 7. Leave the bandage on for 24-48 hours. You may shower the following day after the procedure. You should NOT swim or tub bathe for [address] for 24 hours after the procedure. Do not sign any important documents or smoke unattended for 24 hours. You may return to work with the above restrictions on . 9. If you have any questions or concerns, please call Interventional Radiology Department at until 6pm. After 6pm, or on weekends or hoildays, call and ask for the resident care director military source operations officer. OR Vascular Department at until 4:45pm. After 4:45pm call and ask for the Vascular resident military source operations officer. 10. If you are a diabetic and take Metformin or Janumet, Do not take it for 2 days after the procedure. XX You have received medication during your procedure to help lesson anxiety and keep you comfortable and which affects judgement and reaction time. We recommend that you do not drive, operate equipment, sign any important documents, or smoke unattended for 24 hours following your procedure. Because of the sedation please be careful on stairs, as you may be unsteady on your feet. You may resume your regular diet as tolerated. IV site -- slight redness, or tenderness is normal, you can use a warm compress. If tenderness and redness increases or foul drainage occurs, please contact your MWilver Magana. Revised 12/16/18 documented in this encounter Medications at Time of Discharge Medication Sig Dispensed Refills Start Date End Date acetaminophen Take 650 mg by mouth 0 (Tylenol) 325 mg every 6 hours as needed Tablet for Pain. apixaban (Eliquis) 5 Take 5 mg by mouth 2 0 mg Tablet times daily. levothyroxine Take 88 mcg by mouth 0 (SYNTHROID) 88 mcg daily. Tablet omeprazole (PRILOSEC) Take 20 mg by mouth 0 20 mg Capsule, Delayed daily. Release(E.C.) enoxaparin (Lovenox) Inject 0.89 mLs 1.78 mL 0 04/29/2021 05/03/2021 150 mg/mL subcutaneously daily SyringeIndications: for 2 doses. Patient Acute deep vein stopping Eliquis 2 days thrombosis of left before surgical iliac vein procedure and doing Lovenox bridge. Lovenox not to be administered on the day of the procedure. traMADoL (Ultram) 50 TAKE 1 TABLET BY MOUTH 0 05/03/2021 mg Tablet EVERY 6 HOURS NEEDED FOR PAIN . DO NOT EXCEED 4 PER 24 HOURS oxyCODONE (Roxicodone) Take 1 tablet by mouth 20 tablet 0 0 03/20/2021 05/03/2021 5 mg Tablet every 6 hours as needed for Pain. documented as of this encounter Progress Notes Claudia Wilson RN - 05/02/2021 3:10 PM EST 15:10pm Tylenol 650mg given po as per order for headache. Berkley Portillo RN - 05/02/2021 1:41 PM EST ANGIO NURSING DATABASE Name: AMILCAR WALDRON Date of : 1960 AGE: 60 y.o. Address: [address] [place] [id number] (home) Mobile: Telephone Information: Referring Provider: Steven Rodríguez REASON FOR VISIT: Left Leg Venogram Order Questions Answers Where will study be performed? [facility] Radiology [120] Laterality Left Access Site? TBD Extremity Lower Reason for exam and clinical history: Occluded Stent Exam/Procedure requested: Left leg venogram Is the patient on anticoagulant / antiplatelet therapy? DOAC (Direct Oral Anticoagulant),Other Other meds: Patient taking Eliquis - to stop 2 days prior to procedure. No Known Allergies Pertinent PMH: Patient Active Problem List Diagnosis Code ??? Acquired hypothyroidism E03.9 ??? Acute bilateral deep vein thrombosis (DVT) of iliac veins of lower extremities I82.423 ??? Diverticular disease of colon K57.30 ??? DVT, lower extremity, proximal, acute, bilateral I82.4Y3 ??? Gastroesophageal reflux disease without esophagitis K21.9 ??? 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 TMJ dysfunction M26.609 ??? 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 [...] 7.82) [facility]?? PRO HEMORRHOIDECTOMY, INT/EXT, COMPLX N/A [...] MD at [facility] ENDOSCOPY Date/Procedure Meds Given/Comments 03/15/21 LLE venogram w/ power pulse, stents to L. Iliac vein and IVC filter removal. Fentanyl 500 mcg IV, Versed 6 mg IV, Cefazolin 2 g IV, Heparin 16,000 units, Alteplase 10 mg w/ power pulse, intermittent c/o pain, tolerated well otherwise 05/02/21 LLE Venogram with stent placement Fentanyl 500 mcg IV, Versed 6 mg IV, Cefazolin 2 g IV, TPA 8.8 mg power pulse, Heparin 13,000 units heparin ? 1215 Pt complaining on shortness of breath And chest pressure after using a power pulse heparin and TPA. MD Rodríguez aware. 12 lead EKG ordered. 1224 Pt sts that his shortness breath and chest pressure are getting better. aware. 1232. Pt now complaining of a dull head ache. No Neuro deficits noted. MD alvares 1233 12 lead EKG obtained 1238 Pt headache and chest pressure improving Venous Puncture Post Procedure Site: L Groin with Perclose Time sheath removed: 1320 Time of hemostasis: 1325 Hematoma present? No Anticipated up time: 1430 Site: R Groin with manual pressure Time sheath removed: 1325 Time of hemostasis: 1330 Hematoma present? No Anticipated up time: 1430 Plan to admit. Flat for 1 hour and to initiate heparin gtt in 1 hour (approximately 1430) Dr Vora put in order- KV Laboratory Results: Lab Results Component Value Date INR 1.8 03/12/2021 Lab Results Component Value Date CREATININE 0.66 (L) 05/02/2021 Lab Results Component Value Date K 3.7 03/19/2021 Lab Results Component Value Date PLATELET 403 (H) 03/19/2021 Medications: Prior to Admission medications Medication Sig Start Date End Date Authorizing Provider enoxaparin (Lovenox) 150 mg/mL Syringe Inject 0.89 mLs subcutaneously daily for 2 doses. Patient stopping Eliquis 2 days before surgical procedure and doing Lovenox bridge. Lovenox not to be administered on the day of the procedure. 04/29/21 05/01/21 Steven Rodríguez MD traMADoL (Ultram) 50 mg Tablet TAKE 1 TABLET BY MOUTH EVERY 6 HOURS NEEDED FOR PAIN . DO NOT EXCEED 4 PER 24 HOURS 03/26/21 PROVIDER, HISTORICAL oxyCODONE (Roxicodone) 5 mg Tablet Take 1 tablet by mouth every 6 hours as needed for Pain. Patient not taking: No sig reported 03/20/21 Selene Barkley PA acetaminophen (Tylenol) 325 mg Tablet Take 650 mg by mouth every 6 hours as needed for Pain. PROVIDER, HISTORICAL apixaban (Eliquis) 5 mg Tablet Take 5 mg by mouth 2 times daily. PROVIDER, HISTORICAL levothyroxine (SYNTHROID) 88 mcg Tablet Take 88 mcg by mouth daily. PROVIDER, HISTORICAL omeprazole (PRILOSEC) 20 mg Capsule, Delayed Release(E.C.) Take 20 mg by mouth daily. PROVIDER, HISTORICAL documented in this encounter H&P Notes Tianna King MD - 05/02/2021 7:43 AM EST Vascular Surgery History and Physical HPI: Amilcar Waldron is a 60 year old male who was recently admitted for phlegmasia of his bilateral lower extremities and extensive DVT of his vena cava and bilateral iliac and femoral veins in the seting [facility]. He underwent extensive venous recannulization of his right leg 03/12/21, including open thrombectomy and stenting as well as fasciotomies. He subsequently then underwent left iliac venousthrombectomy and stenting on 03/15/21. The patient underwent duplex of his IVC/iliac veins and was found to have occlusive thrombus within the stented left common and external iliac veins. He presents today for left lower extremity venogram with procedures as indicated. Previous Vascular Surgery Interventions: 03/12/2021 (Marcos) - Right femoral vein cutdown and exposure for delivery of endovascular device, right IJ vein access, nSuprarenal IVC filter placement Endovascular mechanical thrombectomy of IVC and right common and external iliac vein IVC, right common and right external iliac vein stenting Compression thrombectomy of right lower leg Right leg 4-compartment fasciotomies? 03/15/2021 (Marcos) - Angiojet pharmacomechanical thrombectomy with powerpulse of left common and external iliac veins - Left common iliac vein stent placement (Express [id number], post-dilated to 12mm) - Left common and external iliac vein stent placement (Wallstent [id number]) - US guided right internal jugular vein access - IVC venogram - Retrieval of IVC filter - Perclose closure of left common femoral vein, manual pressure closure of right IJ vein Pertinent Cardiovascular Medications: Antiplatelet Beta Blockade Lipid agent Anticoagulation Apixaban Other Patient Active Problem List Diagnosis ??? IVC (inferior vena cava obstruction) ??? Diverticular disease of colon ??? Acquired hypothyroidism ??? Acute bilateral deep vein thrombosis (DVT) of iliac veins of lower extremities ??? DVT, lower extremity, proximal, acute, bilateral ??? Gastroesophageal reflux disease without esophagitis ??? IVC thrombosis ??? TMJ dysfunction There are no hospital problems to display for this patient. Active Non-Hospital Problems Diagnosis ??? IVC (inferior vena cava obstruction) ??? Diverticular disease of colon ??? Acquired hypothyroidism ??? Acute bilateral deep vein thrombosis (DVT) of iliac veins of lower extremities ??? DVT, lower extremity, proximal, acute, bilateral ??? Gastroesophageal reflux disease without esophagitis ??? IVC thrombosis ??? TMJ dysfunction Review of Systems: A full review encompassing at least 10 organ systems including general, neuro, pulm, cardiac, GI, , MSK, Endo, and Psych was negative other than listed in the HPI. Past Medical History: No past medical history on file. Past Surgical History: Past Surgical History: Procedure Laterality Date ??? [...] 7.82) [facility]?? PRO HEMORRHOIDECTOMY, INT/EXT, COMPLX N/A [...] MD at [facility] ENDOSCOPY Social Hx: Social History Socioeconomic History ??? Marital status: Spouse name: Not on file ??? Number of children: Not on file ??? Years of education: Not on file ??? Highest education level: Not on file Occupational History ??? Not on file Tobacco Use ??? Smoking status: Former Smoker ??? Smokeless tobacco: Never Used Vaping Use ??? Vaping Use: Never used Substance and Sexual Activity ??? Alcohol use: Not Currently Comment: about once a month ??? Drug use: No ??? Sexual activity: Not on file Other Topics Concern ??? Not on file Social History Narrative ??? Not on file Social Determinants of Health Financial Resource Strain: Not on file Food Insecurity: Not on file Transportation Needs: Not on file Physical Activity: Not on file Housing Stability: Not on file Family Hx: Negative for Thrombosis, Bleeding Disorders, No family history on file. Medications: Current Outpatient Medications on File Prior to Encounter Medication Sig Dispense Refill ??? [] enoxaparin (Lovenox) 150 mg/mL Syringe Inject 0.89 mLs subcutaneously daily for 2 doses. Patient stopping Eliquis 2 days before surgical procedure and doing Lovenox bridge. Lovenox not alejandra administered on the day of the procedure. 1.78 mL 0 ??? traMADoL (Ultram) 50 mg Tablet TAKE 1 TABLET BY MOUTH EVERY 6 HOURS NEEDED FOR PAIN . DO NOT EXCEED 4 PER 24 HOURS ??? oxyCODONE (Roxicodone) 5 mg Tablet Take 1 tablet by mouth every 6 hours as needed for Pain. (Patient not taking: No sig reported) 20 tablet 0 ??? acetaminophen (Tylenol) 325 mg Tablet Take [...] current facility-administered medications on file prior to encounter. Allergies: No Known Allergies Physical Exam: Vital Signs: Temp: [36.4 ??C (97.5 ??F)] Heart Rate: [78] Resp: [16] BP: (111)/(67) SpO2: [98 %] Heart Rate from SpO2: -- BMI: Weight: 92.2 kg (203 lb 4.2 oz) General: alert, cooperative, NAD, resting comfortably HEENT: normocephalic, atraumatic CVS: Regular rate and rhythm Pulm: Breathing comfortably on room air Abd: soft, non tender, non distended, no pulsatile masses Ext: RLE: Mild edema. Skin warm and pink. Well healed fasciotomy and medial thigh incisions LLE: Mild edema. Skin warm and pink. No tissue loss. Brisk capillary refill. Neuro: Grossly nonfocal, moving all extremities. Labs: Last 3 wbc, hgb, hct plt Recent Labs 03/19/21 0528 03/18/21 0543 03/17/21 0539 WBC 8.2 10.1* 9.6* HGB 8.9* 9.3* 8.8* HCT 27.9* 28.4* 26.6* PLATELET 403* 390* 333 Last 3 Lytes Recent Labs 05/02/21 0822 03/19/21 0528 03/18/21 0543 03/17/21 0539 NA -- 139 136 136 K -- 3.7 3.7 3.8 CL -- 103 103 104 CO2 -- 23 21* 24 BUN -- 12 11 10 CREATININE 0.66* 0.63* 0.60* 0.63* Last 3 Coags No results for input(s): PT, INR, PTT in the last 168 hours. Vascular Studies: 04/30/21 IVC/Iliac Duplex: Interpretation: ?? Patent inferior vena cava with no evidence of thrombus where clearly visualized; however due to limitations from overlying bowel gas non-occlusive thrombus cannot entirely be excluded. ?? There appears to be non-occlusive thrombus in the stented RIGHT common iliac and external iliac veins. Low respirophasic doppler waveforms were noted throughout the RIGHT common and external iliac veins. ?? Occlusive thrombus is noted within the stented LEFT common and external iliac veins. ?? Comparison: ??No previous study in our vascular lab database for comparison. DVT Duplex: Findings: ?? RIGHT: Patent common femoral vein and popliteal vein with spontaneous, respirophasic Doppler waveforms that respond normally to augmentation maneuvers. The common femoral vein, saphenofemoral junction, femoral vein through the thigh and popliteal vein are fully compressible. Posterior tibial and peroneal veins are patent but were not adequately visualized to exclude non-occlusive thrombus. ?? LEFT: Non-occlusive thrombus in the common femoral vein, femoral vein proximal thigh, profunda vein proximal thigh, popliteal vein. Thrombosed gastrocnemius vein in the proximal posterior calf. ?? The femoral vein in the mid to distal thigh is patent and fully compressible. Posterior tibial and peroneal veins are patent but were not adequately visualized to exclude non-occlusive thrombus. ?? Interpretation: ?? RIGHT: No evidence of femoral or popliteal deep vein thrombus. Calf veins are patent but were not adequately visualized to exclude non-occlusive thrombus. ?? LEFT: Acute, non-occlusive lower extremity deep vein thrombus (common femoral, femoral, profunda, popliteal) as well as intramuscular vein thrombus (gastrocnemius). ?? Comparison: ?? RIGHT: Improvement when compared to the previous exam performed on 03/12/2021 which identified extensive lower extremity DVT. ?? LEFT: ??No LEFT previous study in our vascular lab database for comparison. Assessment and Plan: Amilcar Waldron is a 60 year old male who presented with RLE phlegmasia in March 2021 and underwent bilateral iliac vein stenting. He now has evidence of re-thrombosis of his left iliac vein stent. He presents today for LLE venogram with possible thrombectomy and relining of his prior stents. ASA II Mal I SCr Lab Results Component Value Date CREATININE 0.66 (L) 05/02/2021 Tianna King MD 05/02/2021 9:26 AM documented in this encounter Procedure Notes Tianna King MD - 05/02/2021 4:20 PM EST Vascular Surgery Procedure Note Name: Amilcar Waldron Pre-procedure Dx: LLE DVT Post-procedure Dx: Same Procedure: 1. Bilateral femoral venous access 2. Selective catheterization of bilateral iliac veins, IVC 3. Cavogram 4. Stent placement, left common iliac vein (Express stent [id number]), postdilated with [id number] [place] 5. Balloon venoplasty, left femoral vein (Feroz [id number]) 6. Stent placement, left femoral vein (Wallstent [id number]), postdilated with 14x40 mm [place] 7. Perclose closure, left femoral vein. Manual closure, right femoral vein Surgeons: Steven Rodríguez MD - vascular surgeon Tianna King MD - vascular surgery resident Anesthesia: Conscious sedation, local 15 cc 1% lidocaine Medications: Fentanyl: 500 mcg Versed: 6 mg Heparin: 38441 units Antibiotics: 2 gm Ancef TPA: 8.8mg (Powerpulse with Angiojet) Fluoro Time: 68.8 min Contrast: 190 cc EBL: 10cc Indications for the Procedure: Amilcar Waldron is a 60 year old male who was recently admitted for phlegmasia of??his bilateral??lower extremities and extensive DVT of his vena cava and bilateral iliac and femoral veins in the seting of covid. ??He underwent extensive venous recannulization of his right leg 03/12/21, including open thrombectomy and stenting as well as fasciotomies. ??He subsequently then underwent left iliac venous thrombectomy and stenting on 03/15/21. The patient underwent duplex of his IVC/iliac veins and was found to have occlusive thrombus within the stented left common and external iliac veins. He presents today for left lower extremity venogram with procedures as indicated. Findings: - Sheath access in left groin. - Venogram demonstrated: complete thrombosis of previously placed left iliac stents to level of common femoral vein. Disassociation of previously placed Express and Wallstent likely due to foreshortening of Wallstent. Attempts to cross into IVC from ipsilateral side unsuccessful. - Sheath access in right groin - Intervention: Through and through wire access obtained from right side via interstices of previously placed right iliac Wallstent. Angiojet powerpulse and thrombectomy of left femoral and iliac veins. Left iliac vein stent placement bridging previously placed stents (Express stent [id number]), postdilated with [id number] [place]. Extension of stents distally into femoral vein (Wallstent [id number]), postdilated with 14x40 mm [place]. - Completion angiogram demonstrated: brisk flow through left femoral and iliac veins into IVC. Flow through previously placed right iliac/femoral vein stent into IVC - Closure device: Perclose, left femoral vein. Manual pressure, right femoral vein. Technical Procedure: The patient was correctly identified in the pre-procedure holding area. After a discussion of the risks and benefits, operative consent was obtained. The patient was brought to the angio suite and placed supine upon the angio table. The patient was prepped and draped in the usual sterile fashion. A time-out was performed by the attending surgeon. Retrograde percutaneous access was obtained in the left common femoral vein via micropuncture technique under ultrasound and flouroscopic guidance after infiltration with local anesthetic. This was then up-sized to a 10 cm 5F sheath over a J-wire. Venography was performed through the sheath with the above findings. A wire was unable to be passed from the left side through the thrombus present in the previously placed stents, despite multiple attempts with a variety of wires and catheters. Percutaneous access wasthen obtained on the right side via micropuncture technique under ultrasound and flouroscopic guidance after infiltration with local anesthetic. This was then upsized to a 10cm 5F sheath over a J wire.A SOS catheter and stiff glidewire were used to cannulate the left common iliac vein through the interstices of the previously placed right sided Wallstent. The thrombus and area of stent dissociation were crossed using an 018 victory wire and [place] catheter. This was snared from the left side using an En Snare after balloon venoplasty with a [id number] [place] in the left iliac vein thrombus and right Wallstent interstices to ensure both wires were in the same plane. Through and through wire access was obtained from the right to the left side. A KMP catheter was advanced up the left side into the IVC and a [place] catheter was advanced from the right side and the single wire was replaced with a wire from each side into the IVC. The left sided sheath was upsized to a 10F 10cm sheath and the [place] catheter was used to first perform Power pulse with tPA followed by thrombectomy. The tPA was allowed to dwell for 15 minutes prior to thrombectomy. A [id number] Express stent was then inserted from the left side and used to bridge the previously placed stents which had become dissociated. This was post-dilated with a 12mm [place] balloon. A [id number] Wallstent was then placed at the distal aspect of the previouly placed Wallstent, ensuring adequate overlap. This was then postdilated with a 14mm balloon. Completion venography was performed with the findings described above. The left sheath was removed after deployment of a Perclose device and manual pressure was held overthe puncture site for 15 minutes. The right sheath was removed and manual pressure was held over thepuncture site for 15 minutes. Hemostasis was satisfactory. The puncture site was dressed with a dry gauze and tegaderm. Dr. Rodríguez, the attending surgeon, was scrubbed and present for the entire procedure. Due to the painful nature of the procedure, split doses of fentanyl and Versed were administered by the IR nurse during continuous monitoring of pulse, blood pressure and oxygen saturation. Closure method: Perclose (left) Complications: None apparent Disposition: To recovery, flat for 2 hours Admission overnight for observation and hydration Associated attestation - Steven Rodríguez MD - 05/20/2021 4:22 PM EDT Attending Attestation I was the attending physician supervising the resident/fellow in the above care and I was present with the resident/fellow for the entire procedure. I was present during the intraservice time as documented by the sedation RN. documented in this encounter Plan of Treatment Not on filedocumented as of this encounter Procedures Procedure Name Priority Date/Time Associated Comments Diagnosis HC UNFRACTIONATED Routine 05/02/2021 2:40 PM Resu lts for this HEPARIN (HEP UFH) EST procedure are in the results section. HEMOGRAM Routine 05/02/2021 2:40 PM Results f or this EST procedure are i n the results section. DIFFERENTIAL, AUTOMATED Routine 05/02/2021 2:40 PM Results for this EST procedure are i n the results section. HC CBC,PLT & AUTO DIFF Routine 05/02/2021 2:40 PM EST VS VENOGRAM VASCULAR Routine 05/02/2021 1:44 PM Acute deep vei n Results for this SURGERY EST thrombosis of left procedure are in iliac vein the results section. EKG 12-LEAD Routine 05/02/2021 12:21 Acute deep vein Results for this PM EST thrombosis of left procedure are in iliac vein the results section. documented in this encounter Results (ABNORMAL) Heparin (unfractionated) Level (05/02/2021 2:40 PM EST) [facility] Method Time Signature Heparin UFH 1.13 IU/mL [facility] Level (Critical) [facility] Comment: Critical Result called by ?? AYAKA RUBIO Results read back by: ? Deborah Haas at 2021-05-02 16:14:15 Heparin (anti-Xa) levels should be deter mined in a plasma sample that has been drawn 6 hours after a dose change to stella roximate steady-state for continuous heparin infusions. Indication specific Heparin (anti-Xa) le vels based on order set selection: Acute DVT or PE treatment: 0.3 ? 0.7 IU/mL Thrombosis Prevention (eg. atrial fibril lation, mikel-procedural bridging, mechanical valves): 0.3 ? 0.7 IU/mL Acute Coronary Syndrome: 0.3 ? 0.7 IU/mL Stroke Indications: 0.3 ? 0.5 IU/mL Ultra-low intensity (select indications in cardiac surgery): 0.1 ? 0.3 IU/mL Specimen Anatomical Collection Method Collection Time Receive d Time (Source) Location / / Volume Laterality Blood 05/02/2021 2:40 PM 2 2:47 EST PM EST Resulting Agency Comment Spec In Lab Steven Rodríguez MD HEMATOLOGY ORDERABLES Performing Organization Address City/State/[place] [address] (ABNORMAL) Differential, Automated (05/02/2021 2:40 PM EST) [facility] gist Method Time Signature Neutrophils % 81.1 % [facility] Neutr Abs (ANC) 9.87 (H) 1.70 - [facility] 6.10 [facility] x10(3)/[facility] LABORATORY Lymphocytes % 10.8 % [facility] Lymphocytes Abs 1.3 0.9 - 3.2 [facility] x10(3)/[facility] LABORATORY Monocytes % 6.2 % [facility] Monocyte Abs 0.8 0.3 - 0.9 [facility] x10(3)/[facility] LABORATORY Eosinophils % 1.0 % [facility] Eosinophils Abs 0.1 0.0 - 0.4 [facility] x10(3)/[facility] LABORATORY Basophils % 0.3 % [facility] Basophils Abs 0.0 0.0 - 0.1 [facility] x10(3)/[facility] LABORATORY Immature Gran % 0.60 % [facility] Comment: Immature granulocytes(IG's)percentage an d absolute count will include metamyelocytes, myelocytes, and promyelo cytes. Blood smears from CBCs yielding IG's will be scanned manually for concor dance. If this scan disagrees with the automated IG or if promyelocytes are not ed, a manual differential will be performed. Lata Gran Abs 0.07 (H) 0.00 - 0.04 x10(3)/[facility] LABORATORY Specimen Anatomical Collection Method Collection Time Receive d Time (Source) Location / / Volume Laterality Blood 05/02/2021 2:40 PM 2 2:47 EST PM EST Resulting Agency Comment Spec In Lab Tianna King MD HEMATOLOGY ORDERABLES Performing Organization Address City/State/ZIP Code Phon e Number [address] (ABNORMAL) Hemogram (05/02/2021 2:40 PM EST) Analysis Performed At Patho logist Time Signature WBC 12.2 (H) 4.0 - 9.5 [facility] x10(3)/[facility] LABORATORY RBC 3.70 (L) 4.58 - [facility] 5.54 [facility] x10(6)/[facility] LABORATORY Hemoglobin 10.4 (L) 13.7 - [facility] 16.5 g/dL [facility] Hematocrit 33.2 (L) 40.5 - [facility] 48.5 % [facility] MCV 89.7 82.9 [facility] LABORATORY MCH 28.1 27.5 - [facility] 32.1 pg [facility] MCHC 31.3 (L) 32.0 - [facility] 35.7 g/dL [facility] Platelets 355 145 - 357 [facility] x10(3)/[facility] LABORATORY RDWSD 45.8 (H) 36.0 - [facility] CHANG 45.0 [facility] LABORATORY RDWCV 14.0 (H) 11.4 - [facility] CHANG 13.8 % [facility] MPV 9.3 7.6 - 12.9 [facility] CHANG [facility] LABORATORY nRBC % Auto 0.0 % [facility] nRBC Abs Auto 0.000 0.000 - [facility] CHANG 0.000 [facility] x10(3)/[facility] LABORATORY Specimen Anatomical Collection Method Collection Time Receive d Time (Source) Location / / Volume Laterality Blood 05/02/2021 2:40 PM 2 2:47 EST PM EST Resulting Agency Comment Spec In Lab Tianna King MD HEMATOLOGY ORDERABLES Performing Organization Address City/State/ZIP Code Phon e Number [address] VS Venogram Vascular Surgery (05/02/2021 1:44 PM [...] RN. ?? Vascular Surgery Procedure Note Name: Amilcar Waldron Pre-procedure Dx: LLE DVT Post-procedure Dx: Same Procedure: 1. Bilateral femoral venous access 2. Selective catheterization of bilatera l iliac veins, IVC 3. Cavogram 4. Stent placement, left common iliac ve in (Express stent [id number]), postdilated with [id number] [place] 5. Balloon venoplasty, left femoral vein (Feroz [id number]) 6. Stent placement, left femoral vein (W allstent [id number]), postdilated with 14x40 mm [place] 7. Perclose closure, left femoral vein. ??Manual closure, right femoral vein Surgeons: Steven Rodríguez MD - vascular surgeon Tianna King MD - vascular surgery r esident Anesthesia: Conscious sedation, local 15 cc 1% lidocaine Medications: Fentanyl: 500 mcg ?? Versed: 6 mg Heparin: 62238 units ?? Antibiotics: 2 gm Ancef TPA: 8.8mg (Powerpulse with Angiojet) Fluoro Time: 68.8 min Contrast: 190 cc EBL: 10cc Indications for the Procedure: Amilcar kelley is a 60 year old male who was recently admitted for phlegmasia of his bilateral lower extremities and extensive DVT of his vena cava and bilat eral iliac and femoral veins in the seting of covid. ??He underwent extensiv e venous recannulization of [...] bridging previously placed stents (Expre ss stent [id number]), postdilated with [id number] [place]. ??Extension of stents d istally into femoral vein (Wallstent [id number]), postdilated with 14x40 mm Atla s. - [...] was obtained. ??The patient was brought to [facility] angio suite and placed supine upon the [...] Snare aft er balloon venoplasty with a [id number] [place] in the left iliac vein thrombus and right Wallstent interstices to ensure both wires were in the same plane . ??Through and through wire access was obtained from the right to the left side . ??A KMP catheter was advanced up the left side into the IVC and a [place] cathet er was advanced from the right [...] for 15 minutes prior to thrombectomy. ?A [id number] Express sten t was then inserted from the left side and used to bridge the previously placed jeffrey nts which had become dissociated. ??This was post-dilated with a 12mm [place] bal loon. ??A [id number] Wallstent was then placed at the distal [...] who have questions please contact the health ostomy care nurse that requested your imaging first. ? Electronically signed by: Steven Rodríguez MD, [facility] ([phone]), at 05/21/2021 2:38 PM Procedure Note Steven Rodríguez MD - 05/21/2021Format ting of this [...] sedation RN. Vascular Surgery Procedure Note Name: Amilcar Waldron Pre-procedure Dx: LLE DVT Post-procedure Dx: Same Procedure: 1. Bilateral femoral venous access 2. Selective catheterization of bilatera l iliac veins, IVC 3. Cavogram 4. Stent placement, left common iliac ve in (Express stent [id number]), postdilated with [id number] [place] 5. Balloon venoplasty, left femoral vein (Feroz [id number]) 6. Stent placement, left femoral vein (W allstent [id number]), postdilated with 14x40 mm [place] 7. Perclose closure, left femoral vein. Manual closure, right femoral vein Surgeons: Steven Rodríguez MD - vascular surgeon Tianna King MD - vascular surgery r esident Anesthesia: Conscious sedation, local 15 cc 1% lidocaine Medications: Fentanyl: 500 mcg Versed: 6 mg Heparin: 06130 units Antibiotics: 2 gm Ancef TPA: 8.8mg (Powerpulse with Angiojet) Fluoro Time: 68.8 min Contrast: 190 cc EBL: 10cc Indications for the Procedure: Amilcar kelley is a 60 year old male who was recently admitted for phlegmasia of his bilateral lower extremities and extensive DVT of his vena cava and bilat eral iliac and femoral veins in the seting of [facility]. He underwent extensive venous recannulization of his right leg 03/12/21, [...] bridging previously placed stents (Expre ss stent [id number]), postdilated with [id number] [place]. Extension of stents dis tally into femoral vein (Wallstent [id number]), postdilated with 14x40 mm Atla s. - [...] Snare aft er balloon venoplasty with a [id number] [place] in the left iliac vein thrombus and right Wallstent interstices to ensure both wires were in the same plane . Through and through wire access was obtained from the right to the left side . A KMP catheter was advanced up the left side into the IVC and a [place] cathet er was advanced from the right [...] for 15 minutes prior to thrombectomy. A [id number] Express stent was then insert ed from the left side and used to bridge the previously placed jeffrey nts which had become dissociated. This was post-dilated with a 12mm [place] bal loon. A [id number] Wallstent was then placed at the distal [...] ho have questions please contact the health ostomy care nurse that requested your imaging first. Steven Rodríguez MD IMG IR ORDERABLES EKG 12 Lead (05/02/2021 12:21 PM EST) Component Value Ref Range Test Analysis Performed Pathologis t Method Time At Signature Ventricular rate 71 BPM MUSE SYSTEM Atrial Rate 71 BPM MUSE SYSTEM P-R Interval 166 ms MUSE SYSTEM QRS Duration 88 ms MUSE SYSTEM Q-T Interval 404 ms MUSE SYSTEM QTC Calculated 439 ms MUSE SYSTEM (Bezet) Calculated P [place] 43 degrees MUSE SYSTEM Calculated T [place] 31 degrees MUSE SYSTEM INTERPRETATION Normal sinus rhythm MUSE SYSTEM Normal ECG When compared with ECG of 15-MAR-2021 00:26, No significant change was found Confirmed by MD VIDAL, FRANCISCA ([id number]) on 05/06/2021 2:27:25 PM Specimen Anatomical Collection Method Collection Time Receive d Time (Source) Location / / Volume Laterality 05/02/2021 12:21 05/06/2021 2:27 PM EST PM EST Steven Rodríguez MD ECG ORDERABLES Performing Organization Address City/State/ZIP Code Phon e Number MUSE SYSTEM documented in this encounter Visit Diagnoses Diagnosis 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) Compression of vein documented in this encounter Administered Medications Inactive Administered Medications - up to 3 most recent administrations Medication Order MAR Action Action Date Dose Rate Site alteplase (Cathflo) injection 8.8 Given 05/02/2021 1:00 PM EST 8 .8 mg mg 8.8 mg, Intravenous, ONCE, 1 dose, On Gisella 05/02/21 at 1430, For administration with angiojet, Angio/IR (Intra-Procedure), Routine ceFAZolin (Ancef) 2 g in dextrose 5% New Bag 05/02/2021 10:00 AM EST 2 g 200 mL/hr 100 mL infusion 2 g, Intravenous, ONCE, 1 dose, On Gisella 05/02/21 at 1000, Administer over 30 Minutes, Redose every 3 hours if CrCl is greater than 20. Redose every 8 hours if CrCl is less than 20., Angio/IR (Day of Procedure), Indication for (Active or Suspected): Prophylaxis fentaNYL (pf) (50 mcg/mL) multi-dose Given 05/02/2021 1:25 PM ES T 25 mcg injection 25-50 mcg 25-50 mcg, Intravenous, EVERY 3 MIN PRN, Starting on Gisella 05/02/21 at 0942, Until Gisella 05/02/21 at 1630, Pain, per unit protocol, - Start dose 50 mcg (reduce dose to 25 mcg if history of sedation sensitivity). - Titration dose 25-50 mcg IV, (based on patient response) every 3 minutes PRN, to maintain procedural pain less than 2 per pain Scale. Maximum dose: 50 mcg/dose, 250 mcg/hour For use in Interventional Radiology (IR) only for procedural sedation with direct provider supervision and verbal order., Angio/IR (Intra-Procedure), Routine Given 05/02/2021 1:15 PM EST 25 mcg Given 05/02/2021 1:05 PM EST 25 mcg heparin (porcine) (1,000 units/mL) Given 05/02/2021 12:05 PM EST 10,000 Units injection 1,000-10,000 Units 1,000-10,000 Units, Intravenous, ONCE, 1 dose, On Gisella 05/02/21 at 1000, For use in Interventional Radiology (IR) only for procedure with direct provider supervision and verbal order. , Angio/IR (Intra-Procedure), Routine heparin (porcine) (1,000 units/mL) Given 05/02/2021 12:58 PM EST 3,000 Units injection 3,000 Units 3,000 Units, Intravenous, ONCE, 1 dose, On Gisella 05/02/21 at 1315, Routine heparin (porcine) 1,000 unit/mL injectio n 1 dose, Starting on Gisella 05/02/21 at 1253, Until Gisella 05/02/21 at 1258, LASHAY BURCIAGA: cabinet override heparin (porcine) 50 units/mL New Bag 05/02/2021 2:30 PM 1,650 Units/hr 33 mL/hr in sodium chloride 0.45% 500 EST mL infusion 0-5,000 Units/hr (0-100 mL/hr), Intravenous, CONTINUOUS, Starting on Gisella 05/02/21 at 1430, Until Gisella 05/02/21 at 1630, Begin infusion at 1,650 units per hr (18 units/kg/hr). Maximum initial infusion rate is 2,000 units/hr. Infusion doses are rounded to the nearest 50 units. Target Heparin UFH Level (anti-Xa activity) = 0.3 - 0.7 international unit/mL Start adjustment schedule 6 hours after starting infusion. If Heparin UFH Level is: - Less than 0.1 international unit/mL: Administer PRN bolus and increase rate by 350 units per hr (4 units/kg/hr) - 0.1 - 0.19 international unit/mL: Administer PRN bolus and increase rate by 200 units per hr (2 units/kg/hr) - 0.2 - 0.29 international unit/mL: NO BOLUS and increase rate by 200 units per hr (2 units/kg/hr) - 0.3 - 0.7 international unit/mL: No change - 0.71 - 0.79 international unit/mL: NO BOLUS and decrease rate by 100 units per hr (1 units/kg/hr) - 0.8 - 0.99 international unit/mL: NO BOLUS and decrease rate by 200 units per hr (2 units/kg/hr) - Greater than or equal to 1.00 international unit/mL: Hold infusion for 60 minutes then decrease rate by 300 units per hour (3 units/kg/hr) Repeat Heparin UFH Level 6 hours after initiating heparin. Then 6 hours after each dose adjustment. When 2 consecutive Heparin UFH Level within target range of 0.3 - 0.7 international unit/mL, change Heparin UFH Level to once every 24 hours with A.M. labs while on heparin. RN to order required Heparin UFH Level - Per Protocol, Angio/IR (Recovery-Hospital Unit), Routine iodixanoL (Visipaque) (320 mg/mL) injection Given 04/2021 12:40 PM EST 190 mLs solution 1-400 mL 1-400 mL, Intra-arterial, ONCE, 1 dose, On Gisella 05/02/21 at 1000, For intra-procedural use by proceduralist., Angio/IR (Intra-Procedure), Routine lidocaine (Xylocaine) 1% (10 mg/mL) injection Given 10:10 AM EST 10 mg 10 mg 10 mg, Subcutaneous, ONCE, 1 dose, On Gisella 05/02/21 at 1000, For use in Interventional Radiology (IR) only for procedure with direct provider supervision and verbal order., Angio/IR (Intra-Procedure), Routine midazolam (pf) (Versed) (1 mg/mL) multi-dose Given 04/2021 12:36 PM EST 0.5 mg injection 0.5-1 mg 0.5-1 mg, Intravenous, EVERY 3 MIN PRN, Starting on Gisella 05/02/21 at 0942, Until Gisella 3 at 1630, Sleep, - Start dose; 1 mg (Reduce dose to 0.5 mg if history of sedation sensitivity). - Titration dose: 0.5 mg - 1 mg (based on patient response) every 3 minutes PRN to obtain RASS score of -3. Maximum dose: 1 mg per dose, 5 mg/hour. For use in Interventional Radiology (IR) only for procedural sedation with direct provider supervision and verbal order., Angio/IR (Intra-Procedure), Routine Given 05/02/2021 12:30 PM EST 0.5 mg Given 05/02/2021 11:52 AM EST 1 mg sodium chloride 0.9 % (flush) (BD PosiFlush Given 05/02/2021 11:15 AM EST 5 mLs Normal Saline 0.9) flush 5 mL 5 mL, Intravenous, 2 TIMES DAILY, First dose on Gisella 05/02/21 at 1000, Until Discontinued, Routine documented in this encounter Care Teams Power Project Manager Relationship Specialty Start Date End Date Farhan Moss MD PCP - General Emergency Medicine 04/26/21 [address] [place] [address] documented as of this encounter
--- OUTSIDE RECORDS SUMMARY | 2022-01-27 16:02 | XMS_ITS | Encounter Summary ---
:1960 [place] [address] Care Team Providers Name Role Phone Farhan Moss MD Primary Care Provider Encounter Details Date Type Department Care Team Description [facility] [place] [address] Social History Tobacco Use Types Packs/Day [...] results section. documented in this encounter Results Duplex Study for DVT, Bilat legs (01/09/2022 9:03 AM EST) Component Value Ref Test Analysis Performed At [facility] Range Method Time Signature VB Text Department: Vascular Surgery Lab [facility] Report Patient: [id number] (AMILCAR PATE) CPT: 94935 Referring Physician: MARLENE SMITH ?? Indications: f/u [...] cava documented in this encounter Care Teams Block Trader Relationship Specialty Start Date End Date Farhan Moss MD PCP - General Emergency Medicine 04/26/21 [address] [place] [address] documented as of this encounter
--- OUTSIDE RECORDS SUMMARY | 2022-01-27 16:02 | XMS_ITS | Encounter Summary ---
:1960 Author Organization [facility] [place] [address] Care Team Providers Name Role Phone Farhan Moss MD Primary Care Provider Encounter Details Date Type Department Care Team Description 06/04/2021 Tech Visit Vascular Lab at [facility] [place], Jose Ramey, Deep vein thrombosis [facility] RVT (DVT) of iliac vein of [facility] both lower extremities, [facility] [place]ifi [place] [address] Social History Tobacco Use Types Packs/Day [...] Associated Diagnosis Comme nts IVC COMPLETE Routine 06/04/2021 8:35 AM Deep vein thrombosis R esults for this EDT (DVT) of iliac vein procedur e are in of both lower the results extremities, section. unspecified chronicity DUPLEX FOR DVT Routine 06/04/2021 8:34 AM Deep vein thrombosis Results for this BILAT LEGS EDT (DVT) of iliac vein procedur e are in of both lower the results extremities, section. unspecified chronicity documented in this encounter Results Duplex Study IVC/Iliac, Comp (06/04/2021 8:35 AM EDT) Component Value Ref Test Analysis Performed At [facility] Method Time Signature VB Text Department: Vascular Surgery Lab [facility] Report Patient: [id number] (AMILCAR PATE) CPT: 20289 Referring Physician: JI MCMILLAN ?? Phone: Indications: ??hx bilateral iliac vein and IVC stenting Findings: Interpretation: Patent stented inferior vena cava with n o direct evidence of thrombus. Flow is somewhat reduced in respirophasicity. Patent stented bilater al common and external iliac veins with no direct evidence of thromb us. Flow throughout is somewhat reduced in respirophasicity. No identif iable change when compared to the previous exam done 05/03/2021. Electronically Signed by: MARLENE SMITH on 2021-06-04 09:35 :57 AM VB Text End of Report [facility] Report Specimen (Source) Anatomical Collection Method Collection Time Re ceived Time Location / / Volume Laterality 06/04/2021 8:35 AM EDT Ji Mcmillan APRN VASCULAR ORDERABLES Performing Organization Address City/State/ZIP Code Phon e Number [facility] Duplex Study for DVT, Bilat legs (06/04/2021 8:34 AM EDT) Component Value Ref Test Analysis Performed At [facility] Method Time Signature VB Text Department: Vascular Surgery Lab [facility] Report Patient: [id number] (AMILCAR PATE) CPT: 66900 Referring Physician: JI MCMILLAN ?? Phone: Indications: ??hx LEFT CFV stenting, DVT Findings: RIGHT: Patent common femoral vein and popliteal vein with sp ontaneous, respirophasic Doppler wavefo mayuri that respond normally to augmentation maneuvers. The common femoral vein, sap henofemoral junction, femoral vein through the thigh and popliteal vein are fully compressible. Patent posterior tibial and peroneal veins with no evidence of thrombus. LEFT: There is a small amount of focal non occlusive t hrombus in the femoral and profunda femoris veins proximal thigh. Patent common femoral vein and popliteal vein wi th spontaneous, respirophasic Doppler waveforms that respond normally to augme ntation maneuvers. The common femoral vein, saphenofemoral junction, femoral vein through mid to distal thigh and popliteal vein are fully compressible. Patent posterior tibial and peroneal veins with no evidence of th rombus. Patent gastrocnemius veins with no evidence of thrombus. Interpretation: RIGHT: ??No evidence of lower extremity deep venous thrombos is. LEFT: Lower extremity non oc clusive deep venous thrombus of indeterminate age.. Comparison: Previous exam done 05/03/2021 identified non -occlusive thrombus in the common femoral vein, femoral vein proximal thigh, profunda vein proximal thigh, and popliteal vein as well as a thrombosed gastrocn emius vein in the proximal posterior calf. Electronically Signed by: MARLENE SMITH on 2021-06-04 09:35 :49 AM VB Text End of Report [facility] Report Specimen (Source) Anatomical Collection Method Collection Time Re ceived Time Location / / Volume Laterality 06/04/2021 8:34 AM EDT Ji Mcmillan APRN VASCULAR ORDERABLES Performing Organization Address City/State/ZIP Code Phon e Number [facility] documented in this encounter Visit Diagnoses Diagnosis 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, unspecified chronicity documented in this encounter Care Teams Combatant Diver Qualified Relationship Specialty Start Date End Date Farhan Moss MD PCP - General Emergency Medicine 04/26/21 [address] [place] [address] documented as of this encounter
--- OUTSIDE RECORDS SUMMARY | 2022-01-27 16:02 | XMS_ITS | Encounter Summary ---
:1960 Author Organization [facility] Address [place] [id number] Care Team Providers Name Role Phone Farhan Moss MD Primary Care Provider Reason for Referral Diagnostic Test (Routine) - Pending Review Specialty Diagnoses / Procedures Referred By Contact Refer red To Contact Diagnoses IVC thrombosis Tali Alonzo APRN [facility] Vascular Lab 3v Procedures Duplex Study IVC/Iliac, Comp [facility] [place] [address] [place] [address] Referral ID Status Reason Start Expiration Visits Visits Date Date Requested Authorized [id number] Pending Specialty 04/26/2021 04/26/2022 1 1 Review Service Requested Encounter Details Date Type Department Care Team Description 04/26/2021 Office Visit Vascular Surgery at [place], [place] thrombosis; [facility] [place] 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; [facility] IVC (inferior vena cava obstruction); Drive DVT, lower extremity, proximal, acute, b ilateral [place], [place] VASCULAR SURGERY [address] [place] [address] [phone] Social History Tobacco Use Types Packs/Day Years Used Date Smoking Tobacco: Former Smokeless Tobacco: Never Alcohol Use Standard Drinks/Week Comments Not Currently 0 (1 standard drink = 0.6 oz pure alcoho l) about once a month Sex Assigned at Date Recorded Not on file documented as of this encounter Last Filed Vital Signs Vital Sign Reading Time Taken Comments Blood Pressure 107/69 04/26/2021 9:43 AM EST Pulse 81 04/26/2021 9:43 AM EST Temperature - - Respiratory Rate - - Oxygen Saturation - - Inhaled Oxygen Concentration - - Weight 88.5 kg (195 lb) 04/26/2021 9:43 AM EST reported Height 175.3 cm (5' 9) 04/26/2021 9:43 AM EST reported Body Mass Index 28.8 04/26/2021 9:43 AM EST documented in this encounter Progress Notes Marlene Rodríguez MD - 04/26/2021 10:15 AM EST VASCULAR SURGERY POSTOP FOLLOW-UP SERVICE DATE: 05/07/2021 SERVICE TIME: 7:40 AM PRIMARY CARE PHYSICIAN: Farhan Moss MD REFERRING PROVIDER: Selene Barkley PA [facility] [place] [address] Operation: 03/12/2021 ([facility]) - Right femoral vein [...] Left common iliac vein stent placement (Express [id number], post-dilated to 12mm) - Left common and external iliac vein stent placement (Wallstent [id number]) - US guided right internal jugular vein access - IVC venogram - Retrieval of IVC filter - Perclose closure of left common femoral vein, manual pressure closure of right IJ vein History of Present Illness: Amilcar Waldron is a 60 y.o. 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. He underwent extensive venous recannulization with Dr. Rodríguez of his right leg, including open thrombectomy and stenting as well as fasciotomies. He subsequently then underwent left iliac venous thrombectomy and stenting. He reports that the swelling in his left lower extremity has worsenedl. Physical Exam: PHYSICAL EXAM Physical Exam Performed BP 107/69 (BP Location (NBP): Right arm, Patient Position: Sitting, BP Cuff Sizes: Adult (25-34 cm)) Pulse 81 Ht 175.3 cm (5' 9) Comment: reported [...] DP and PT pulses are palpable DATA: Duplex shows L iliac vein stent is thrombosed Impression: 60 y.o. male here for follow-up after IVC and right iliac stenting, and right lower extremity thrombectomy and fasciotomies for phlegmasia as well as left iliac vein stenting in the settingof extensive DVT will temporarily off anticoagulation. His L iliac vein stent is thrombosed and he is symptomatic. Plan for venogram and possible stenting. Plan: -Follow-up in 2 weekw for vascular surgery clinic for evaluation of his lower extremities, as well as stable/suture removal -Continue his anticoagulation regimen -Patient and his are aware of signs and symptoms that should warrant more urgent evaluation SIGNATURE: MARLENE RODRÍGUEZ MD PATIENT NAME: Amilcar Waldron DATE: May 07, 2021 TIME: 7:40 AM documented in this encounter Plan of Treatment Not on filedocumented as of this encounter Results Duplex Study IVC/Iliac, Comp (04/26/2021 8:13 AM EST) Component Value Ref Test Analysis Performed At [facility] Range Method Time Signature VB Text Department: Vascular Surgery Lab [facility]AS[facility] Report Patient: [id number] (AMILCAR WALDRON) CPT: 44878 Referring Physician: TALI ALONZO ?? Indications: S/p [...] lab da tabase for comparison. Notification: Dr. Rodríguez was informed of these preliminary f indings. 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
--- OUTSIDE RECORDS SUMMARY | 2022-01-27 16:02 | XMS_ITS | Encounter Summary ---
:1960 Author Organization [facility] [place] [address] Care Team Providers Name Role Phone Farhan Moss MD Primary Care Provider Reason for Visit Auth/Cert Specialty Diagnoses / Procedures Referred By Contact Refer red To Contact Diagnoses DVT (deep venous thrombosis) potential [place] Procedures EMERGENCY OBSVO Referral ID Status Reason Start Date Expiration Date Visits Requ ested Visits Authorized [id number] 1 1 Encounter Details Date Type Department Care Team Description 05/02/2021 Laboratory Appointment Lab 3L [facility] Acute deep vein [facility] thrombosis of left [facility] [place] [id number] Social History Tobacco Use Types Packs/Day Years [...] Name Priority Date/Time Associated Diagnosis Comme nts HC VENIPUNCTURE STAT 05/02/2021 8:22 AM Acute deep vein Res ults for this EST thrombosis of left procedure are in iliac vein the results section. documented in this encounter Results (ABNORMAL) Creatinine (05/02/2021 8:22 AM EST) Analysis Performed At Patho logist Time Signature Creatinine 0.66 (L) 0.80 - [facility] [place] 1.50 mg/dL [facility] Estimated GFR 104 >=60 [facility] [place] mL/min/1.7 [facility] 3 m?? [facility] Comment: This patient? s estimated glomerular [...] Address City/State/ZIP Code Phon [place] [address] documented in this encounter Visit Diagnoses Diagnosis Acute deep vein thrombosis of left iliac vein documented in this encounter Care Teams Kitchen Supervisor Relationship Specialty Start Date End Date Farhan Moss MD PCP - General Emergency Medicine 04/26/21 [address] [place] [address] documented as of this encounter
--- OUTSIDE RECORDS SUMMARY | 2022-01-27 16:02 | XMS_ITS | Encounter Summary ---
:1960 Author Organization [facility] [place] [address] Care Team Providers Name Role Phone Farhan Moss MD Primary Care Provider Reason for Referral Diagnostic Test (Routine) - Pending Review Specialty Diagnoses / Procedures Referred By Contact Refer red To Contact Diagnoses 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, unspecified chronicity Ji Mcmillan APRN [facility] Vascular Lab 3v Procedures Duplex Study for DVT, Bilat legs [facility] [place] [address] [place] [address] Referral ID Status Reason Start Expiration Visits Visits Date Date Requested Authorized [id number] Pending Specialty 05/03/2021 05/03/2022 1 1 Review Service Requested iagnostic Test (Routine) - Pending Review Specialty Diagnoses / Procedures Referred By Contact Refer red To Contact Diagnoses 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, unspecified chronicity Ji Mcmillan APRN [facility] Vascular Lab 3v Procedures Duplex Study IVC/Iliac, Comp [facility] [place] [address] [place] [address] Referral ID Status Reason Start Expiration Visits Visits Date Date Requested Authorized [id number] Pending Specialty 05/03/2021 05/03/2022 1 1 Review Service Requested Reason for Visit Auth/Cert Specialty Diagnoses / Procedures Referred By Contact Refer red To Contact Diagnoses DVT (deep venous thrombosis) potential MO Procedures EMERGENCY OBSVO Referral ID Status Reason Start Date Expiration Date Visits Requ ested Visits Authorized [id number] 1 1 Encounter Details Date Type Department Care Team Description 05/02/2021 - Hospital Encounter Short Stay Unit at Rod[facility]guez Steven Deep vein 05/03/2021 Phuong Hess MD thrombosis (DVT) of [facility] iliac vein of both [facility] DR ovi weiner, [facility] VASCULAR SURGERY unspecified [place] chronicity [id number] [phone] Social History Tobacco Use Types Packs/Day Years Used Date Smoking Tobacco: Former Smokeless Tobacco: Never Alcohol Use Standard Drinks/Week Comments Not Currently 0 (1 standard drink = 0.6 oz pure alcoho l) about once a month Sex Assigned at Date Recorded Not on file documented as of this encounter Last Filed Vital Signs Vital Sign Reading Time Taken Comments Blood Pressure 107/77 05/03/2021 11:38 AM EST Pulse 98 05/03/2021 11:38 AM EST Temperature 36.7 ??C (98.1 ??F) 05/03/2021 11:38 AM EST Respiratory Rate 19 05/03/2021 11:38 AM EST Oxygen Saturation 95% 05/03/2021 11:38 AM EST Inhaled Oxygen Concentration - - Weight 92.2 kg (203 lb 4.2 oz) 05/02/2021 2:45 PM EST Height - - Body Mass Index 30.02 04/26/2021 9:43 AM EST documented in this encounter Discharge Summaries Ji Mcmillan APRN - 05/03/2021 10:50 AM EST Inpatient - Discharge Summary Patient Name: Amilcar Waldron Patient Age: 60 y.o. Birthdate: 1960 Admit date: 05/02/2021 Discharge date and time: 05/03/2021 Attending Physician: Steven Rodríguez MD Discharging Provider: Ji Mcmillan APRN Discharging Service: Vascular Surgery Operations/Major Procedures: 05/02/2021: L/E venogram, Left MERCEDES/EIA angiojet and re-lining of stents Active Hospital Problems: Active Hospital Problems Diagnosis ??? DVT (deep venous thrombosis) Resolved Hospital Problems No resolved problems to display. Active Non Hospital Problems: Active Non-Hospital Problems Diagnosis ??? IVC (inferior vena cava obstruction) ??? Diverticular disease of colon ??? Acquired hypothyroidism ??? Acute bilateral deep vein thrombosis (DVT) of iliac veins of lower extremities ??? DVT, lower extremity, proximal, acute, bilateral ??? Gastroesophageal reflux disease without esophagitis ??? IVC thrombosis ??? TMJ dysfunction History of Presentation: 60 year old male who was recently [...] lower extremity venogram with procedures as indicated. Hospital Course: Pt admitted for overnight observation following the above procedures. Repeat dupleximaging obtained in AM, resulted below. Pt's recovery went well with good PO intake, adequate outputand minimal pain. Pt's B groin access remain with dressings c/d/i. He was maintained on heparin drippostop, given 1x dose lovenox for d/c and will resume home-dose Eliquis. Pt ambulates and completes ADLs independently and is medically cleared for d/c to home. He will f/u in 1 month with DVT duplexes. Day of discharge exam: BP 118/72 (BP Location (NBP): Left arm, Patient Position: Sitting) Pulse 91 Temp 37 ??C (98.6 ??F) (Oral) Resp 18 Wt 92.2 kg (203 lb 4.2 oz) SpO2 97% BMI 30.02 kg/m?? General: alert, cooperative, NAD, resting comfortably HEENT: normocephalic, atraumatic CVS: Regular rate and rhythm Pulm: Breathing comfortably on room air Abd: soft, non tender, non distended, no pulsatile masses Ext: RLE: Mild edema. Skin warm and pink. Well healed fasciotomy and medial thigh incisions. Groin accesswith dressing c/d/i, no s/sx of underlying hematoma. LLE: Mild edema. Skin warm and pink. No tissue loss. Brisk capillary refill. Neuro: Grossly nonfocal, moving all extremities. Groin access with dressing c/d/i, no s/sx of underlying hematoma. Important Studies and Lab Data: Labs: CBC Lab Results Component Value Date WBC 9.9 (H) 05/03/2021 Hemoglobin 10.7 (L) 05/03/2021 Hematocrit 33.7 (L) 05/03/2021 Platelets 335 05/03/2021 05/03/2021 Duplex Findings: RIGHT: Patent common femoral vein and [...] thigh, profunda vein proximal thigh, and popliteal vein. Thrombosed gastrocnemius vein in the proximal posterior calf. ?? The femoral vein in the mid to distal thigh is patent and fully compressible. Posterior tibial and peroneal veins are patent but were not adequately visualized to exclude non-occlusive thrombus. ?? Interpretation: RIGHT: No evidence of femoral or popliteal deep vein thrombus. Calf veins are patent but were not adequately visualized to exclude non-occlusive thrombus. LEFT: Acute, non-occlusive lower extremity deep vein thrombus (common femoral, femoral, profunda, popliteal) as well as intramuscular vein thrombus (gastrocnemius). ?? Comparison: RIGHT: No identifiable change when compared to the previous exam performed on . LEFT: No identifiable change when compared to the previous exam performed on . ?? Unable to visualize the stented inferior vena cava of the bilateral stented common iliac veins due to overlying bowel gas. The bilateral stented external iliac veins are patent with no obvious thrombus where clearly visualized and low respirophasic doppler waveforms noted throughout. Overall improvement when compared to the previous exam performed on 04/26/2021 which identified occlusive thrombus in the left CIV/EIV and non-occlusive thrombus in the right CIV/EIV. Discharge Condition: Good Discharge to: Home Future Appointments and Orders Future Appointments and Orders Future Appointments Provider Department Dept Phone 06/04/2021 8:30 AM Shanna Horton Vascular Lab at [facility] Arrive at: News Video Editor Area [phone] 06/04/2021 10:30 AM Steven Rodríguez MD Vascular Surgery at [facility] Arrive at: [employer] Area [phone] 06/07/2021 10:00 AM Natacha Velásquez MD Hematology and Oncology at [facility] Arrive at: News Video Editor Area [phone] 06/28/2021 11:00 AM Natacha Velásquez MD Hematology and Oncology at [facility] Arrive at: [employer] Area [phone] Future Orders Complete By Expires Duplex Study for DVT, Bilat legs [VAS40 Custom] 06/03/2021 05/03/2022 Process Instructions: There is no in-house vascular pharmaceutical laboratory technician available on weeknights (5pm-8am), weekends, or holidays. IF THIS IS A REQUEST FOR AN EMERGENT STUDY DURING THOSE HOURS, please have the senior provider responsible for the patient page the Vascular Surgery Fellow/Senior Resident electronic installer to discuss options. Scheduling Instructions: Questions: Indication for study/signs & symptoms: S/p thrombectomy and stenting of IVC, right CIV and right EIV Question to be answered: patency Preferred location?: [facility] Duplex Study IVC/Iliac, Comp [VAS55 Custom] 06/03/2021 05/03/2022 Process Instructions: There is no in-house vascular pharmaceutical laboratory technician available on weeknights (5pm-8am), weekends, or holidays. IF THIS IS A REQUEST FOR AN EMERGENT STUDY DURING THOSE HOURS, please have the senior provider responsible for the patient page the Vascular Surgery Fellow/Senior Resident electronic installer to discuss options. Scheduling Instructions: Questions: Indication for study/signs & symptoms: S/p thrombectomy and stenting of IVC, right CIV and right EIV Question to be answered: patency Preferred location?: [facility] Anticoagulation & Antiplatelet: Anticoagulation: Agent: Eliquis 5mg PO BID Indication: Venous thrombosis Intended Duration: Retirement Antiplatelet: None indicated For questions regarding these medications, please contact: Vascular Surgery Discharge Medications: Your Medications Continued medications, unchanged Dose Details acetaminophen 325 mg Tab Commonly known as: Tylenol Take 650 mg by mouth every 6 hours as needed for Pain. 650 mg Refills: 0 apixaban 5 mg Tab Commonly known as: Eliquis Take 5 mg by mouth 2 times daily. 5 mg Refills: 0 levothyroxine 88 mcg Tab Commonly known as: Synthroid Take 88 mcg by mouth daily. 88 mcg Refills: 0 omeprazole 20 mg Cpdr Commonly known as: PriLOSEC Take 20 mg by mouth daily. 20 mg Refills: 0 STOPPED Medications enoxaparin 150 mg/mL Syrg Commonly known as: Lovenox oxyCODONE 5 mg Tab Commonly known as: Roxicodone traMADoL 50 mg Tab Commonly known as: Ultram Updated Allergies/ADRs: No Known Allergies Instructions Given to Patient at Discharge: Patient Instructions Patient Instructions You were admitted on 05/02/2021 after having venous intervention to remove clot and improve blood flowin your legs. All of this went very well. Dr. Rodríguez will want you to be seen in approximately one month with duplex imaging of your venous sytem. All of this will be ordered and sent to you in the mail. If for some reason you don't receive this within a week or so please call our office as your followup is very important. Anticoagulation: on Eliquis, resume this medication as normal. Take your first dose upon getting home today. Call your doctor if: Any fever, any drainage, redness or separation of your incision, increased painor change in temperature of your leg Activity level: up as tolerated but watch for swelling of your legs. Manage this with leg elevation,toes higher than your nose and also can use acewrapping from your foot to below knee, tape in place,rewrap as necessary. Diet: resume your previous regular diet Driving: none right now with pain medication use Shower/Bath: ok to shower and wash all incisions under running water, pat dry. No soaking in a pool/bath/hottub until cleared to do so by your provider Wound Care: Remove groin dressings in 1-2 days and then no need to cover. For any problems or questions please call [phone] For issues on weeknights after 5pm and weekends please call [phone] and ask for the Vascular Fellow electronic installer. Ji Mcmillan APRN Department of Vascular Surgery documented in this encounter Discharge Instructions Patient InstructionsJi Mcmillan APRN - 05/03/2021 11:38 AM EST Patient Instructions You were admitted on 05/02/2021 after having venous intervention to remove clot and improve blood flowin your legs. All of this went very well. Dr. Rodríguez will want you to be seen in approximately one month with duplex imaging of your venous sytem. All of this will be ordered and sent to you in the mail. If for some reason you don't receive this within a week or so please call our office as your followup is very important. Anticoagulation: on Eliquis, resume this medication as normal. Take your first dose upon getting home today. Call your doctor if: Any fever, any drainage, redness or separation of your incision, increased painor change in temperature of your leg Activity level: up as tolerated but watch for swelling of your legs. Manage this with leg elevation,toes higher than your nose and also can use acewrapping from your foot to below knee, tape in place,rewrap as necessary. Diet: resume your previous regular diet Driving: none right now with pain medication use Shower/Bath: ok to shower and wash all incisions under running water, pat dry. No soaking in a pool/bath/hottub until cleared to do so by your provider Wound Care: Remove groin dressings in 1-2 days and then no need to cover. For any problems or questions please call [phone] For issues on weeknights after 5pm and weekends please call [phone] and ask for the Vascular Fellow electronic installer. documented in this encounter Medications at Time [...] daily. Release(E.C.) documented as of this encounter Progress Notes Lauren Leon RN - 05/03/2021 10:46 AM EST 1000 Assumed care of pt. Sitting up, eating. States he feels well. Anxious for dc planning home. 1150 Pt readied for discharge. Reviewed and provided AVS. All questions answered. Waiting for ride documented in this encounter Miscellaneous Notes Initial Assessments - Italia Galo RN - 05/03/2021 11:58 AM EST Office of Care Management Initial Assessment / Discharge note Medical record reviewed. Plan of care and patient status discussed with direct care Registered Nurseand/or Care Team in multidisciplinary rounds. Reason for Hospitalization: Last COVID test: Lab Results Component Value Date [id number] Not Detected 03/12/2021 Present on Admission: ??? DVT (deep venous thrombosis) Hospitalizations Within the Past 30 Days: no previous admission in last 30 days Patient receiving hospital care under Observation status. Admission order reviewed. Primary Insurance on file: MEDICAID [place] Secondary Insurance on file:@ Primary care provider on file: Farhan Moss MD [phone] Pharmacy: [id number] - [place], [place] - [address] [place] [address] Advance Care Planning: Attempt Cardiopulmonary Resuscitation - Inpatient <no information> -Advanced Directive: No, declines Current Functional Ability: Independent Functional Status Prior to Admission: Independent Home Environment: Others in the home: spouse. Current Living Arrangements: home/apartment/condo. Accessibility Concerns:no concerns. Current DME: none [address] [place] [address] Social & Family Supports: All names listed below confirmed with patient as current and correct Extended Emergency Contact Information Primary Emergency Contact: Karlie Waldron Address: [address] [place] [address] [facility] Mobile Relation: Spouse Secondary Emergency Contact: Steven Greenwood [facility] Relation: Other Current Care Provided by: self Transportation: no concerns Transportation Anticipated: family or friend will provide Assessment: Patient with no apparent RNCM/SW needs at this time. No housing, transportation, insurance, resources concerns identified at this time. Supports in place to achieve a safe post-hospital transition. No identified barriers to accessing necessary care and/or follow-up after discharge. Plan: Patient to d/c to home via car when medically ready. Registered Nurse Surface Mount Technology Operator / Art Therapy Specialist will continue to follow patient???s progress and remain available if situation changes for coordination of care, psychosocial support and/or discharge planning. Office of Care Management Italia FELTON RN Phone: [phone] Pager: [phone] documented in this encounter Plan of Treatment Not on filedocumented as of this encounter Procedures Procedure Name Priority Date/Time Associated Comments Diagnosis DUPLEX FOR DVT BILAT Routine 05/03/2021 7:39 Deep vein Resu lts for this LEGS AM EST thrombosis (DVT) of procedur e are in iliac vein of both the resul ts lower extremities, section. unspecified chronicity IVC COMPLETE Routine 05/03/2021 7:13 Deep vein Results for this AM EST thrombosis (DVT) of procedur e are in iliac vein of both the resul ts lower extremities, section. unspecified chronicity HC UNFRACTIONATED Routine 05/03/2021 2:45 Results for this HEPARIN (HEP UFH) AM EST procedure are in the results section. HEMOGRAM Routine 05/03/2021 2:45 Results for this AM EST procedure are i n the results section. DIFFERENTIAL, AUTOMATED Routine 05/03/2021 2:45 R esults for this AM EST procedure are i n the results section. HC CBC,PLT & AUTO DIFF Routine 05/03/2021 2:45 AM EST BASIC METABOLIC PANEL Routine 05/03/2021 2:45 Res ults for this (NON-FASTING) AM EST procedure are in the results section. HC VENIPUNCTURE Routine 05/02/2021 8:19 Results f or this PM EST procedure are i n the results section. documented in this encounter Results Duplex Study IVC/Iliac, Comp (06/04/2021 8:35 AM EDT) Component Value Ref Test Analysis Performed At [facility] Method Time Signature VB Text Department: Vascular Surgery Lab [facility] Report Patient: [id number] (AMILCAR WALDRON) CPT: 76633 Referring Physician: JI MCMILLAN ?? Phone: Indications: [...] previous exam done 05/03/2021. Electronically Signed by: STEVEN RODRÍGUEZ on 2021-06-04 09:35 :57 AM VB Text End of Report [facility] Report Specimen (Source) Anatomical Collection Method Collection Time Re ceived Time Location / / Volume Laterality 06/04/2021 8:35 AM EDT Ji Mcmillan INTERNET ASSESSOR VASCULAR ORDERABLES Performing Organization Address City/State/ZIP Code Phon e Number [facility] Duplex Study for DVT, Bilat legs (06/04/2021 8:34 AM EDT) Component Value Ref Test Analysis Performed At [facility] Method Time Signature VB Text Department: Vascular Surgery Lab [facility] Report Patient: [id number] (AMILCAR WALDRON) CPT: 38163 Referring Physician: IJ MCMILLAN ?? Phone: Indications: ??hx LEFT CFV [...] the proximal posterior calf. Electronically Signed by: STEVEN RODRÍGUEZ on 2021-06-04 09:35 :49 AM VB Text End of Report [facility] Report Specimen (Source) Anatomical Collection Method Collection Time Re ceived Time Location / / Volume Laterality 06/04/2021 8:34 AM EDT Ji Mcmillan APRN VASCULAR ORDERABLES Performing Organization Address City/State/ZIP Code Phon e Number [facility] Duplex Study for DVT, Bilat legs (05/03/2021 7:39 AM EST) Component Value Ref Test Analysis Performed At [facility] Range Method Time Signature VB Text Department: Vascular Surgery Lab VASCU[facility] Report Patient: [id number] (AMILCAR AWLDRON) CPT: [id number] Referring Physician: STEVEN RODRÍGUEZ ?? Indications: S/p relining of left iliac artery stents via right venous access, ? change in known lower extremity DVT. Findings: RIGHT: Patent common femoral vein and [...] thigh, profunda vein proximal thigh, and popliteal vein. Thr ombosed gastrocnemius vein in the proximal posterior calf. [...] as intramuscular vein thrombus (gastrocnemius). Comparison: RIGHT: No identifiable change when compared to t he previous exam performed on . LEFT: No identifiable change when compared to the prev ious exam performed on . Electronically Signed by: STEVEN CEBALLOS on 2021-05-03 10:13: 46 AM VB Text End of Report [facility] Report Specimen (Source) Anatomical Collection Method Collection Time Re ceived Time Location / / Volume Laterality 05/03/2021 7:39 AM EST Steven Rodríguez MD VASCULAR ORDERABLES Performing Organization Address City/State/ZIP Code Phon e Number [facility] Duplex Study IVC/Iliac, Comp (05/03/2021 7:13 AM EST) Component Value Ref Test Analysis Performed At [facility] Range Method Time Signature VB Text Department: Vascular Surgery Lab [facility] Report Patient: [id number] (AMILCAR WALDRON) CPT: 92843 Referring Physician: JI MCMILLAN ?? Phone: Indications: H/o stenting of IVC and iliac veins, now s/p venogram and relining of prior stents, ? change Findings: Interpretation: Comment: Patient was not fasting for today's exam. Unable to visualize the stented inferior vena cava of the bilateral stented common iliac veins due to overlying bowel gas. The bilateral stented external iliac vei ns are patent with no obvious thrombus where clearly visualized and low respirophasic doppler wavef orms noted throughout. Overall improvement when compared to the previou s exam performed on 04/26/2021 which identified occlusive thrombus in the left CIV/EIV and non-occlusive thrombus in the right CIV/EIV. Electronically Signed by: STEVEN CEBALLOS on 2021-05-03 10:14: 31 AM VB Text End of Report [facility] Report Specimen (Source) Anatomical Collection Method Collection Time Re ceived Time Location / / Volume Laterality 05/03/2021 7:13 AM EST Ji Mcmillan APRN VASCULAR ORDERABLES Performing Organization Address City/State/ZIP Code Phon e Number [facility] (ABNORMAL) Differential, Automated (05/03/2021 2:45 AM EST) [facility] gist Method Time Signature Neutrophils % 80.0 % [facility] Neutr Abs (ANC) 7.95 (H) 1.70 - [facility] [address] [facility] x10(3)/[facility] LABORATORY Lymphocytes % 9.4 % [facility] Lymphocytes Abs 0.9 0.9 - 3.2 [facility] x10(3)/[facility] LABORATORY Monocytes % 8.3 % [facility] Monocyte Abs 0.8 0.3 - 0.9 [facility] x10(3)/[facility] LABORATORY Eosinophils % 1.6 % [facility] Eosinophils Abs 0.2 0.0 - 0.4 [facility] x10(3)/[facility] LABORATORY Basophils % 0.4 % [facility] Basophils Abs 0.0 0.0 - 0.1 [facility] x10(3)/[facility] LABORATORY Immature Gran % 0.30 % [facility] Comment: Immature granulocytes(IG's)percentage an d absolute count will include metamyelocytes, myelocytes, and promyelo cytes. Blood smears from CBCs yielding IG's will be scanned manually for concor dance. If this scan disagrees with the automated IG or if promyelocytes are not ed, a manual differential will be performed. Lata Gran Abs 0.03 0.00 - 0.04 x10(3)/[facility] LABORATORY Specimen Anatomical Collection Method Collection Time Receive d Time (Source) Location / / Volume Laterality Blood 05/03/2021 2:45 AM 3:01 EST AM EST Resulting Agency Comment Spec In Lab Tianna King MD HEMATOLOGY ORDERABLES Performing Organization Address City/State/[place] [address] (ABNORMAL) Hemogram (05/03/2021 2:45 AM EST) Analysis Performed At Patho logist Time Signature WBC 9.9 (H) 4.0 - 9.5 [facility] x10(3)/[facility] LABORATORY RBC 3.91 (L) 4.58 - [facility] [address] [facility] x10(6)/[facility] LABORATORY Hemoglobin 10.7 (L) 13.7 - [facility]/dL [facility] Hematocrit 33.7 (L) 40.5 - [facility] 48.5 % [facility] MCV 86.2 82.9 - [facility] 93.1 [facility] LABORATORY MCH 27.4 (L) 27.5 - [facility] 32.1 pg [facility] MCHC 31.8 (L) 32.0 - [facility] 35.7 g/dL [facility] Platelets 335 145 - 357 [facility] x10(3)/[facility] LABORATORY RDWSD 43.8 36.0 - [facility] 45.0 [facility] LABORATORY RDWCV 14.0 (H) 11.4 - [facility] SYSTEMCK 13.8 % [facility] MPV 9.3 7.6 - 12.9 [facility] LABORATORY nRBC % Auto 0.0 % [facility] nRBC Abs Auto 0.000 0.000 - [facility] [address] [facility] x10(3)/[facility] LABORATORY Specimen Anatomical Collection Method Collection Time Receive d Time (Source) Location / / Volume Laterality Blood 05/03/2021 2:45 AM 2 3:01 EST AM EST Resulting Agency Comment Spec In Lab Tianna King MD HEMATOLOGY ORDERABLES Performing Organization Address City/[facility]/[place] [address] Heparin (unfractionated) Level (05/03/2021 2:45 AM EST) athologist Signature Heparin UFH 0.35 IU/mL [facility] LABORATORY Comment: Heparin (anti-Xa) levels should be deter mined [...] (Source) Location / / Volume Laterality Blood 05/03/2021 2:45 AM 2 3:01 EST AM EST Resulting Agency Comment Spec In Lab Steven Rodríguez MD HEMATOLOGY ORDERABLES Performing Organization Address City/[facility]/[place] [address] (ABNORMAL) Basic Metabolic Panel (non-fasting) (05/03/2021 2:45 AM EST) athologist Signature Glucose Lvl 96 65 - 199 [facility] mg/dL [facility] Comment: Diabetes: >=200 mg/dL plus symp toms BUN 14 10 - 20 mg/dL [facility] Creatinine 0.64 (L) 0.80 - 1.50 mg/dL [facility] Sodium 137 135 - 145 mmol/L [facility] Potassium 3.8 3.5 - 5.0 mmol/L [facility] Comment: Please note: ??Patients with WBC >100,00 0 may have falsely elevated Potassium levels. ??For accurate Potassium quantif ication in these patients send serum separator tube (gold top) for subsequent determinations. ??Contact the Clinical Chemistry Laboratory if there are any qu estions. Chloride 101 98 - 107 mmol/L [facility] CO2 26 22 - 31 mmol/L [facility] Anion Gap 10 5 - 15 mmol/L [facility] Calcium 8.8 8.5 - 10.5 mg/dL [facility] Estimated GFR 106 >=60 mL/min/1.73 m?? [facility] Comment: This patient? s estimated glomerular filtration rate (eGFR) is between 106 mL/min/1.73 m2 (patients with less muscl e mass per kg body weight) and 122 mL/min/1.73 m2 (patients with more muscl e [...] (Source) Location / / Volume Laterality Blood 05/03/2021 2:45 AM 2 3:01 EST AM EST Resulting Agency Comment Spec In Lab Steven Rodríguez MD CHEMISTRY ORDERABLES Performing Organization Address City/State/[place] [address] Heparin (unfractionated) Level (05/02/2021 8:19 PM EST) P athologist Signature Heparin UFH 0.40 IU/mL [facility] LABORATORY Comment: Heparin (anti-Xa) levels should be deter mined [...] Location / / Volume Laterality Blood 05/02/2021 8:19 PM 8:25 EST PM EST Resulting Agency Comment Spec In Lab Steven Rodríguez MD HEMATOLOGY ORDERABLES Performing Organization Address City/State/[place] [address] documented in this encounter Visit Diagnoses Diagnosis 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, unspecified chronicity DVT (deep venous thrombosis) Acute venous embolism and thrombosis of unspecified deep vessels of lower extremity documented in this encounter Admitting Diagnoses Diagnosis DVT (deep venous thrombosis) Acute venous embolism and thrombosis of unspecified deep vessels of lower extremity documented in this encounter Administered Medications Inactive Administered Medications - up to 3 most recent administrations Medication Order MAR Action Action Date Dose Rate Site acetaminophen (Tylenol) tablet Given 05/03/2021 10:02 AM EST 650 mg 650 mg 650 mg, Oral, EVERY 6 HOURS PRN, Starting on Gisella 05/02/21 at 1622, Until Thu05/03/21 at 1538, Pain, Fever, Administer for temperature greater than or equal to 38.2 degrees celsius. Maximum daily dose of acetaminophen from all sources not to exceed 4,000 mg. When ordered for pain, acetaminophen should be given even when other ordered pain medications are indicated., Routine Given 05/03/2021 3:18 AM EST 650 mg Given 05/02/2021 10:56 PM EST 650 mg enoxaparin (Lovenox) (150 mg/1 mL) Given 05/03/2021 10:50 AM EST 140 mg subcutaneous injection 140 mg 140 mg, Subcutaneous, ONCE, 1 dose, On Thu05/03/21 at 0930, Routine heparin (porcine) 50 Restarted 05/02/2021 5:38 PM 1,350 Units/hr 27 mL/hr units/mL in sodium chloride EST 0.45% 500 mL infusion 0-5,000 Units/hr (0-100 mL/hr), Intravenous, CONTINUOUS, Starting on Gisella 05/02/21 at 1715, Until Thu05/03/21 at 0840, Begin infusion at 1,650 units per hr [...] required Heparin UFH Level - Per Protocol, Routine lactated ringers infusion New Bag 05/02/2021 5:18 PM EST 100 mL/hr 100 mL/hr 100 mL/hr, Intravenous, CONTINUOUS, Starting on Thu05/02/21 at 1715, Until Thu05/02/21 at 2314 levothyroxine (Synthroid) tablet 88 mcg Given 05/03/2021 6:20 AM EST 88 mcg 88 mcg, Oral, DAILY, First dose on Thu05/03/21 at 0600, Until Discontinued, Routine ondansetron ODT (Zofran-ODT) disintegrating Given 05/02/2021 5:3 7 PM EST 4 mg tablet 4 mg 4 mg, Oral, EVERY 8 HOURS PRN, Starting on Thu05/02/21 at 1733, Until Thu05/03/21 at 1538, Nausea, Routine senna-docusate (Pericolace) 8.6-50 mg per Given 2021 10:02 AM EST 2 tablets tablet 2 tablet 2 tablet, Oral, 2 TIMES DAILY, First dose on Thu05/02/21 at 2100, Until Discontinued, Routine Given 05/02/2021 11:01 PM EST 2 tablets sodium chloride 0.9 % (flush) (BD PosiFlush Given 05/03/2021 10:02 AM EST 5 mLs Normal Saline 0.9) flush 5 mL 5 mL, Intravenous, 2 TIMES DAILY, First dose on Thu05/02/21 at 2100, Until Discontinued, Routine Given 05/02/2021 11:03 PM EST 5 mLs documented in this encounter Active and Recently Administered Medications Times are shown in EST. Scheduled Medication Order 05/01/2021 05/02/2021 05/03/2021 enoxaparin (Lovenox) (150 mg/1 mL) subcutaneous injection 140 mg (COMPLETED) 1050 (Given - Provider: Lauren Leon, RN)1930 (Due - Provider: Waleska Macdonald RN) 140 mg, Subcutaneous, ONCE, 1 dose, On Thu05/03/21 at 0930, Gordy rodriguez levothyroxine (Synthroid) tablet 88 mcg 0620 (Given - Provider: Titi Pérez, JOSE ELIAS) 88 mcg, Oral, DAILY, First dose on Thu at 0600, Until Discontinued, Routine senna-docusate (Pericolace) 8.6-50 mg per tablet 2 tablet 2300 (Given - Provider: Titi Pérez RN) 1002 (Given - Provider: Waleska Macdonald, RN) 2 tablet, Oral, 2 TIMES DAILY, First dos e on Thu05/02/21 at 2100, Until Discontinued, Routine sodium chloride 0.9 % (flush) (BD PosiFlush Normal Saline 0. 9) flush 5 mL 2303 (Given - Provider: Titi Pérez RN) 1002 (Given - Provider: Waleska Macdonald, RN) 5 mL, Intravenous, 2 TIMES DAILY, First dose on Thu05/02/21 at 2100, Until Discontinued, Routine Continuous Medication Order 05/01/2021 05/02/2021 05/03/2021 heparin (porcine) 50 units/mL in sodium chloride 0.45% 500 mL infusion (CANCELED) 1633 (Paused - Provider: Daisy Haas RN - Comment: UFH 1.13; per Dr. Patrice centeno based off of this result and redraw UFH at 2030)1738 (Restarted - Provider: Deborah Haas RN) 0840 (Stopped - Provider: Waleska Macdonald RN) 0-5,000 Units/hr (0-100 mL/hr), Intraven ous, CONTINUOUS, Starting on Thu05/02/21 at 1715, Until Thu05/03/21 at 0840, Begin infusion at 1,650 units per hr (18 units/kg/hr). Maximum initial infusion rate is 2,000 units/hr. Infusion doses are roun ded to the nearest 50 units. Target Heparin UFH Level (anti-Xa activity) = 0.3 - 0.7 international unit/mL Start adjustment schedule 6 hours after starting infusi on. If Heparin UFH Level is: - Less than 0.1 international unit/mL: Administer PRN bolus and increase rate by 350 units per hr (4 units/kg/hr) - 0.1 - 0.19 international unit/mL: Administer PRN bolus an d increase rate by 200 units per hr (2 u nits/kg/hr) - 0.2 - 0.29 international unit/mL: NO [...] Greater than or equal to 1.00 international uni t/mL: Hold infusion for 60 minutes then decrease rate by 300 units per hour (3 units/kg/hr) Repeat Heparin UFH Level 6 hours after initiating heparin. Then 6 hour s after each dose adjustment. When 2 con secutive Heparin UFH Level within target range of 0.3 - 0.7 international unit/mL, change Heparin UFH Level to once every 24 hours with A.M. labs while on heparin . RN to order required Heparin UFH Level - Per Protocol, Routine lactated ringers infusion () 1718 (New Bag - Provider: Deborah Haas RN) 100 mL/hr, Intravenous, CONTINUOUS, Star ting on Gisella 05/02/21 at 1715, Until Gisella 05/02/21 at 2314 PRN Medication Order 05/01/2021 05/02/2021 05/03/2021 acetaminophen (Tylenol) tablet 650 mg 22 56 (Given - Provider: Titi Pérez RN) 0318 (Given - Provider: Titi Pérez RN)1002 (Given - Provider: Waleska Macdonald RN) 650 mg, Oral, EVERY 6 HOURS PRN, Startin g on Gisella 05/02/21 at 1622, Until Thu05/03/21 at 1538, Pain, Fever, Administer for temperature greater than or equal to 38.2 degrees celsius. Maximum daily dose of ac etaminophen from all sources not to exce ed 4,000 mg. When ordered for pain, acetaminophen should be given even when other ordered pain medications are indicated., Routine ondansetron ODT (Zofran-ODT) disintegrating tablet 4 mg 1737 (Given - Provider: Deborah Haas RN) 4 mg, Oral, EVERY 8 HOURS PRN, Starting on Gisella 05/02/21 at 1733, Until Thu05/03/21 at 1538, Nausea, Routine sodium chloride 0.9 % (flush) (BD PosiFlush Normal Saline 0.9) f lush 5-20 mL 5-20 mL, Intravenous, EVERY 1 MIN PRN, S tarting on Gisella 05/02/21 at 1622, Until 05/03/21 at 1538, flush, Flush pertains to all indwelling lines. Flush per protocol found in the job aid using the link provided on this medication record., Routine documented in this encounter Care Teams Workers Compensation Defense Attorney Relationship Specialty Start Date End Date Farhan Moss MD PCP - General Emergency Medicine 04/26/21 [address] [place] [address] documented as of this encounter
--- OUTSIDE RECORDS SUMMARY | 2022-01-27 16:03 | XMS_ITS | Encounter Summary ---
:1960 Author Organization [facility] [place] [address] Care Team Providers Name Role Phone None Primary Care Provider Unavailable Reason for Referral Consultation (Routine) - Closed Specialty Diagnoses / Procedures Referred By Contact Refer red To Contact Internal Medicine Diagnoses Lung nodule Encounter to establish care Selene Barkley, [facility] Internal Medicine PA [address] [place], [place] VASCULAR SURGERY [id number] [place] [address] Referral ID Status Reason Start Date Expiration Date Visits V isits Requested Authorized [id number] Closed Consult, 03/20/2021 03/20/2022 1 1 Test & Treat Consultation (Routine) - Closed Specialty Diagnoses / Procedures Referred By Contact Refer red To Contact General Surgery Diagnoses Inguinal hernia without obstruction or gangrene, recurrence not specified, unspecified laterality Selene Barkley, [facility] Gen Surgery 4l PA [facility] [place] [phone] Fax: Referral ID Status Reason Start Date Expiration Date Visits V isits Requested Authorized [id number] Closed Consult, 03/20/2021 03/20/2022 1 1 Test & Treat Diagnostic Test (Routine) - Pending Review Specialty Diagnoses / Procedures Referred By Contact Refer red To Contact Diagnoses 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 Selene Barkley PA [facility] Vascular Lab 3v Procedures Duplex Study for DVT, Bilat legs [facility] VASCULAR SURGERY [id number] [place] [address] Referral ID Status Reason Start Expiration Visits Visits Date Date Requested Authorized [id number] Pending Specialty 03/19/2021 03/19/2022 1 1 Review Service Requested iagnostic Test (Routine) - Closed Specialty Diagnoses / Procedures Referred By Contact Refer red To Contact Diagnoses 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 Selene Barkley PA [facility] Vascular Lab 3v Procedures Duplex Study IVC/Iliac, Comp [facility] [place] [address] [place] [address] Referral ID Status Reason Start Date Expiration Date Visits V isits Requested Authorized [id number] Closed Specialty 03/19/2021 03/19/2022 1 1 Service Requested Reason for Visit Reason Comments Leg Pain worsening right leg pain wit h numbness and discoloration Hospital Transfer Auth/Cert Specialty Diagnoses / Procedures Referred By Contact Refer red To Contact Diagnoses 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 Procedures EMERGENCY IPI Referral ID Status Reason Start Date Expiration Date Visits Requ ested Visits Authorized [id number] 1 1 Encounter Details Date Type Department Care Team Description 03/12/2021 - [address] M D [facility] [place] [address] IVC (inferior vena cava obstruction) (Pr kayden Dx); 03/20/2021 Encounter [facility] Reinaldo Merino MD [facility] [place] [address] Acute 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; [facility] [place] [address] IVC thrombosis; [facility] Martine Gerardo DO [facility] [place] [address] DVT, lower extremity, proximal, acute, b ilateral; Drive Marlene Rodríguez MD [facility] [place] [address] Inguinal hernia without obstruction or g angrene, recurrence not specified, unspecified laterality; [place], [place] Abnormality of esophagus; [id number] Gastroesophageal reflux dise ase without esophagitis; [phone] Lung nodule; Encounter to [facility] Social History Tobacco Use Types Packs/Day Years Used Date Smoking Tobacco: Former Smokeless Tobacco: Never Alcohol Use Standard Drinks/Week Comments Not Currently 0 (1 standard drink = 0.6 oz pure alcoho l) about once a month Sex Assigned at Date Recorded Not on file documented as of this encounter Last Filed Vital Signs Vital Sign Reading Time Taken Comments Blood Pressure 117/69 03/20/2021 8:00 AM EST Pulse 88 03/20/2021 3:02 AM EST Temperature 37.1 ??C (98.8 ??F) 03/20/2021 8:00 AM EST Respiratory Rate 16 03/20/2021 8:00 AM EST Oxygen Saturation 96% 03/20/2021 8:00 AM EST Inhaled Oxygen Concentration - - Weight 95.3 kg (210 lb) 03/13/2021 4:57 PM EST Height 174 cm (5' 8.5) 03/13/2021 4:57 PM EST Body Mass Index 31.47 03/13/2021 4:57 PM EST documented in this encounter Discharge Summaries Selene Barkley PA - 03/20/2021 11:50 AM EST Inpatient - Discharge Summary Patient Name: Amilcar Pate Patient Age: 60 y.o. Birthdate: 1960 Admit date: 03/12/2021 Discharge date and time: 03/20/2021 Attending Physician: Marlene Rodríguez MD Discharging Provider: TARAN Pineda Discharging Service: Vascular Surgery Operations/Major Procedures: 03/12/2021: Right femoral vein cutdown and exposure for delivery of endovascular device, Ultrasound and fluoroscopic guided right IJ vein access, Suprarenal IVC filter placement, Endovascular mechanical thrombectomy of IVC and right common and external iliac vein, IVC, right common and right external iliac vein stenting, Compression thrombectomy of right lower leg, Right leg 4-compartment fasciotomies. 03/14/2021: RLE medial fasciotomy site closure, R lateral fasciotomy site wound vac dressing change. 03/15/2021: Left common femoral vein access with fluoroscopic and ultrasound guidance; LLE venogram;selective catheterization of IVC; Angiojet pharmacomechanical thrombectomy with powerpulse of left common and external iliac veins; Left common iliac vein stent placement (Express [id number], post-dilatedto 12mm); Left common and external iliac vein stent placement (Wallstent [id number]); US guided right internal jugular vein access; IVC venogram; Retrieval of IVC filter; Perclose closure of left common femoral vein, manual pressure closure of right IJ vein. Active Hospital Problems: Active Hospital Problems Diagnosis ??? IVC (inferior vena cava obstruction) Resolved Hospital Problems No resolved problems to display. Active Non Hospital Problems: Active Non-Hospital Problems Diagnosis ??? Diverticular disease of colon ??? Acquired hypothyroidism ??? Acute bilateral deep vein thrombosis (DVT) of iliac veins of lower extremities ??? DVT, lower extremity, proximal, acute, bilateral ??? Gastroesophageal reflux disease without esophagitis ??? IVC thrombosis ??? TMJ dysfunction History of Presentation: Amilcar Pate is a 60 year old male with a PMH notable for hypothyroidism and GERD who presented with a 5 hour history of acute onset RLE pain, numbness and tingling associated with blue discoloration from hip to toes. It had been progressively worsening which prompted his visit to the ED. He wasrecently admitted for a DVT on 02/21 and was discharged on Eliquis. He took it as prescribed howeverstopped it on Thursday for a colonscopy on Thursday. Colonoscopy was uneventful and patient went home inhis usual state of health until his symptom onset at 1 AM earlier this morning. He denied any additional symptoms such as chest pains, shortness of breath, fevers, chills, nausea or emesis. He does report dyspnea on exertion (a few feet to the bathroom). 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 CTPE on 03/12/21 demonstrated no PE, however, incidental findings noted with outpatient follow-up below. On 03/12/21, patient was urgently taken to the OR for R femoral vein cutdown, suprarenal IVC filter placement, endovascular mechanical thrombectomy and stenting of IVC/R CIV/R EIV, RLE compression thrombectomy, and RLE 4-compartment fasciotomies. In surgery, right IJ access - suprarenal IVC filter placement. Right thigh femoral vein cutdown. Initial venogram noted for infrarenal IVC and bilateral CIV thrombosis. Endovascular mechanical thrombectomy with ClotTriever of IVC, R CIV and R EIV with returnof acute red and pale white colored clot. Repeat venogram notable for infrarenal IVC stenosis - predilated with Temple 14 mm balloon. IVC and R CIV stented with Venous WallStent 20 x 80 mm. Extended distally into R EIVA with Wallstent 20 x 80 mm. Postdilated with Temple 16 mm balloon. Completion angiogram with brisk flow through right CFV, EIV, CFV and IVC. Right leg thrombectomy with Esmarc of right leg with mild amount of thrombus removed but calf appeared improved. 4-compartment fasciotomy of right leg completed - pink bulging muscles x all compartments. Bilateral DP/PT signals postoperatively. Patient was admitted to the SICU for post-op monitoring and management. On 03/13/21, patient noted improvement in BLE symptoms. Patient required 1.5L of fluid resuscitation with excellent response post-operatively. He was transferred to step-down on 03/13/21. Repeat CT venogram performed on 03/14/21, resulted below. On 03/14/20, Hb down to 8.7 from 10.6 on arrival, likely dueto acute blood loss anemia post-operatively with expected dilution component. CKs peaked at 10,000 and downtrended following fasciotomies for possible RLE compartment syndrome with rhabdomyolysis/ischemic reperfusion injury. On 03/14/21, patient returned to the OR for RLE medial fasciotomy site closure, R lateral fasciotomy site wound vac dressing change. In surgery, 4 compartment fasciotomy sites with healthy muscle and surrounding tissue. Medial incision on left lower extremity approximated with vicryl sutures and closedwith kassandra. Lateral incision on left lower extremity left open with gradual approximation via kassandra and rubber bands. Wound vac placed over left lateral incision with 2 black sponges (one over wound, and one bridging sponge), holding suction appropriately.??He was re-admitted for further post-operative management. On 03/15/21, patient underwent LLE venogram, angiojet pharmacomechanical thrombectomy with powerpulseand stenting of L CIV and L EIV, retrieval of IVC filter. In procedure, LLE venogram revealed extensive DVT burden in common and external iliac veins. Angiojet pharmacomechanical thrombectomy with powerpulse of left common and external iliac veins, Left common iliac vein stent placement (Express [id number], post-dilated to 12mm), Left common and external iliac vein stent placement (Wallstent [id number]). IVC venogram revealed suprarenal IVC filter in place without clot burden within filter. IVC filter removal. Patient was re- admitted for post-operative monitoring. On 03/16/21, patient was transferred to the floor. On 03/18/20, patient underwent removal af L medial thigh LIZETTE drain and lateral fasciotomy incision closure. In surgery, wound vac with black sponge removed revealing healthy muscle and granulation tissue. Kassandra and rubber band removed. Lateral fasciotomy incision closed with 3.0 prolene vertical mattress sutures. Medial thigh LIZETTE drain removed. Leg wrapped with kerlix and jose bandage. He was re-admitted for further post-operative monitoring. CT on 03/12/21 demonstrated incidental findings of soft tissue thickening and nodularity at GE junction and distal esophagus. EGD on 03/11/21 with negative bx, no further evaluation needed per GI. Additionally CT on 03/12/21 as well as lung findings of nodular consolidation and DESTIN ground glass nodule require follow-up CT chest in 6-12 weeks by PCP. Patient's recovery with good PO intake, adequate output following acuña removal, and pain well controlled on PO meds. He was transitioned to Eliquis for therapeutic anticoagulation at time of discharge. Patient worked with PT who recommend home with VNA. Incisions are clean and dry without signs of infection. He is medically cleared for discharge to home with VNA. Patient will follow-up in the clinicin 2 weeks for staple removal and in 1 month with BLE DVT duplex and IVC/iliac duplex. Day of discharge exam: BP 117/69 Pulse 88 Temp 37.1 ??C (98.8 ??F) (Oral) Resp 16 Ht 174 cm (5' 8.5) Wt 95.3 kg (210 lb) SpO2 96% BMI 31.47 kg/m?? GEN: Alert and appears stated age. Cooperative. In NAD. HEENT: Normocephalic and atraumatic. Neck: Supple, symmetric, trachea midline. CV: Regular rate. Pulm: No evidence of increased work of breathing. Clear to auscultation bilaterally. Abd: Soft, non-distended, non-tender to palpation. Skin: Color, texture, turgor normal. No rashes or lesions. Neuro: No focal deficits, gross sensory or motor abnormalities. Extremities: L groin access site c/d/i, soft, no surrounding erythema or drainage. Bilateral UE and LE warm and pink. RLE fasciotomy incision sites c/d/i - no surrounding erythema or drainage. 2+ BLE edema. Important Studies and Lab Data: CTA Chest/PE 03/12/2021: IMPRESSION 1. No CT angiographic evidence of pulmonary [...] time of follow-up CT of the chest. CT venogram 03/12/2021: IMPRESSION 1. No CT angiographic evidence of pulmonary [...] time of follow-up CT of the chest. DVT duplex 03/12/2021: Interpretation: RIGHT: Extensive acute deep vein thrombosis throughout the right lower extremity. Acute occlusive superficial vein thrombosis in the great saphenous vein. TTE 03/13/2021: SUMMARY: 1. There is normal global left ventricular systolic function with an EF of 60-70% with no wall motion abnormalities. 2. The right ventricle is normal in size and function. Free wall strain is normal at -25.6% on GE echo machine. The estimated pulmonary artery systolic pressure is normal at 26 mmHg. 3. There is no hemodynamically significant valve disease. 4. There is moderate dilatation of the aortic root. 4.4cm CT Venogram 03/14/2021: IMPRESSION 1. Interval recanalization with stent graft placement through the IVC and right common and external iliac veins. 2. Interval placement of suprarenal IVC filter. 3. Residual retroperitoneal, pelvic and body wall edema. 4. New edema through subcutaneous tissues and muscular tissues of the left pelvis and proximal thigh. 5. Persistent thrombus possibly with mixed hematoma expanding the occluded left common, external iliac, common femoral and visualized segments of left superficial femoral vein. Lab Results Component Value Date WBC 8.2 03/19/2021 HGB 8.9 (L) 03/19/2021 HCT 27.9 (L) 03/19/2021 MCV 90.9 03/19/2021 PLATELET 403 (H) 03/19/2021 Lab Results Component Value Date NA 139 03/19/2021 K 3.7 03/19/2021 CL 103 03/19/2021 CO2 23 03/19/2021 BUN 12 03/19/2021 CREATININE 0.63 (L) 03/19/2021 GLUCOSE 117 03/19/2021 CALCIUM 8.9 03/19/2021 ESTGFR 106 03/19/2021 Discharge Condition: Good Discharge to: Home with home health Future Appointments and Orders Future Appointments and Orders Future Appointments Provider Department Dept Phone 04/04/2021 2:30 PM Twan Serna MD Vascular Surgery at [facility] Arrive at: [facility] [phone] 04/26/2021 8:00 AM Avila Bai [place] Vascular Lab at [facility] Arrive at: [facility] [phone] 04/26/2021 10:15 AM Marlene Rodríguez MD Vascular Surgery at [facility] Arrive at: [facility] [phone] 06/07/2021 10:00 AM Natacha Velásquez MD Hematology and Oncology at [facility] Arrive at: [facility] [phone] 06/28/2021 11:00 AM Natacha Velásquez MD Hematology and Oncology at [facility] Arrive at: [facility] [phone] Future Orders Complete By Expires Duplex Study for DVT, Bilat legs [VAS40 Custom] 04/19/2021 10/19/2021 Process Instructions: There is no in-house vascular laboratory [facility] available on weeknights (5pm-8am), weekends, or holidays. IF THIS IS A REQUEST FOR AN EMERGENT STUDY DURING THOSE HOURS, please have the senior provider responsible for the patient page the Vascular Surgery Fellow/Senior Resident phone counselor to discuss options. Scheduling Instructions: Questions: Indication for study/signs & symptoms: s/p thrombectomy and stenting of IVC, R CIV and R EIV Question to be answered: Patency? New/worsening DVT? Preferred location?: [facility] Duplex Study IVC/Iliac, Comp [VAS55 Custom] 04/19/2021 10/19/2021 Process Instructions: There is no in-house vascular laboratory mill[facility] available on weeknights (5pm-8am), weekends, or holidays. IF THIS IS A REQUEST FOR AN EMERGENT STUDY DURING THOSE HOURS, please have the senior provider responsible for the patient page the Vascular Surgery Fellow/Senior Resident phone counselor to discuss options. Scheduling Instructions: Questions: Indication for study/signs & symptoms: s/p thrombectomy and stenting of IVC, R CIV and R EIV Question to be answered: Patency? New/worsening DVT? Preferred location?: [facility] Referral to Gastroenterology [REF25 Custom] As directed Process Instructions: If requesting a colonoscopy please use [id number] AMB REFERRAL TO COLONOSCOPY PROCEDURE. This referral request is for evaluation and treatment of gastrointestinal health concerns. Scheduling Instructions: Questions: My question or request is: Soft tissue thickening and nodularity at GE junction and distal esophagus seen on CT 03/12/21 Referral to General Internal Medicine [REF40 Custom] As directed Process Instructions: If no progress note charted, please enter Clinical details in comments. Scheduling Instructions: Questions: My question or request is: Establish care, follow-up of lung findings from CT on 03/12/21 Referral to General Surgery [REF27 Custom] As directed Process Instructions: If no progress note charted, please enter Clinical details in comments. If you are requesting vascular access please answer the VAD questions Due to the OR limitations at the [facility], if you are considering surgery for thispatient, and their BMI is greater than 50, please refer to [facility] (or a division other than [facility]). Scheduling Instructions: Questions: Are you seeking Vascular Access?: No My question or request is: Inguinal Hernias Referral to Home Health - at DISCHARGE [NIV3590 CPT(R)] As directed Process Instructions: Scheduling Instructions: Comments: DOCUMENTATION FOR VNA SERVICES (INCLUDING THOSE PATIENTS WITH MEDICARE COVERAGE REQUIRING HOME VNA SERVICES AND/OR HOSPICE SERVICES) PATIENT'S LOCATION: [facility]car [facility] [address] [facility] [address] [facility] [address] (home) Cell: Telephone Information: Customer Support Consultant's Name: Jun In discussion with the attending physician, it is certified that this patient is under their care and that they, or a Nurse Practitioner,Clinical Nurse specialist or Physician Winding Department Supervisor who is working directly with them, had a face to face encounter that meets the physician face to face encounter requirements with this patient on 03/20/2021 ( please enter DC date here) The encounter with the patient was in whole, or in part, for the following medical condition, which is the primary reason for home health care services: Inability to leave home due to recent major surgical intervention, post-op deconditioning In discussion with the provider, it is certified that, based on their findings, the following services are medically necessary for home health services. To provide the following care/treatments with the clinical findings supporting the need for servicesas follows: HOME CARE ORDERS: RN ORDERS:Assess wound or incision, vital signs, cardiopulmonary status, nutrition, hydration, elimination, meds effectiveness and management; reinforce education re health issues PT ORDERS: Continue rehab for endurance, gait stability and strength with mobility and transfers. Home safety evaluation. Home exercise program if appropriate. OT: assess and continue rehab for managing ADL's. HOME HEALTH CARE AGENCY: [facility] [employer] PHONE: [phone] FAX: [phone] Start of care: Within 24 to 48 hours of discharge Please note that any additional orders needs or changes will need to be obtained from this patient'sPCP: None None None All A agencies which cover the area of patient's residence have been reviewed, either verbally or in writing, and patient/family have chosen the home health care agency noted Questions: Agency name and contact information: [facility] Patient location post discharge: home What services are requested: Registered Nurse Physical Therapy Occupational Therapy Social Work Start date: Responsible MD post discharge contact info: Anticoagulation & Antiplatelet: Anticoagulation: Agent: Eliquis Indication: DVT s/p stenting Intended Duration: TBD, indefinitely Antiplatelet: None For questions regarding these medications, please contact: Vascular surgery Discharge Medications: Your Medications Continued medications with new dosing Dose Details oxyCODONE 5 mg Tab Commonly known as: Roxicodone Take 1 tablet by mouth every 6 hours as needed for Pain. What changed: when to take this 5 mg Quantity: 20 tablet Refills: 0 Continued medications, unchanged Dose Details acetaminophen 325 mg Tab Commonly known as: Tylenol Take 650 mg by mouth every 6 hours as needed for Pain. 650 mg Refills: 0 Eliquis 5 mg Tab Take 5 mg by mouth 2 times daily. Generic drug: apixaban 5 mg Refills: 0 levothyroxine 88 mcg Tab Commonly known as: Synthroid Take 88 mcg by mouth daily. 88 mcg Refills: 0 omeprazole 20 mg Cpdr Commonly known as: PriLOSEC Take 20 mg by mouth daily. 20 mg Refills: 0 STOPPED Medications ibuprofen 200 mg Tab Commonly known as: Advil Updated Allergies/ADRs: No Known Allergies Follow-up Recommendations for Providers: Follow-up in vascular surgery clinic in 2 weeks for a hospital check and in 1 month with BLE DVT duplex and IVC/iliac duplex. Follow-up and establish care with PCP. Instructions Given to Patient at Discharge: Patient Instructions Patient Instructions You were admitted on 03/12/2021 after having right leg venous stenting to improve blood flow return in your leg. You required lower leg incisions to relieve pressure in your legs. All of this went very well. Dr. Rodríguez will want you to be seen in approximately 2 weeks for an incision site check and staple removal. You will follow-up again in 1 month with an ultrasound of the veins in your abdomen and legs. All of this will be ordered and sent to you in the mail. If for some reason you don't receive this within a week or so please call our office as your followup is very important. Anticoagulation: Continue your Eliquis 5 mg twice a day. Call your doctor if: Any fever, any drainage, redness or separation of your incision, increased painor change in temperature of your leg Activity level: Up as tolerated but watch for swelling of your leg. Manage this with leg elevation, toes higher than your nose and also can use acewrapping from your foot to below knee, tape in place, rewrap as necessary. Diet: Resume your previous regular diet Driving: None right now with pain medication use. Shower/Bath: Ok to shower and wash all incisions under running water, pat dry. No soaking in a pool/bath/hottub until cleared to do so by your provider. Wound Care: You may apply a dry gauze dressing as needed to keep your incision sites clean and dry. A referral was placed to the general surgery team at your request for outpatient management of your inguinal hernia. Please call [phone] and ask to speak with the general surgery team if you do not hear regarding this appointment in 2 weeks from discharge. Additionally, you had lung findings that require follow-up CT imaging in 6-12 weeks by your primary care provider. A referral was placed to primary care at [facility] given your transition between providers.You should call [phone] if you do not hear regarding this referral. If you establish care with a different primary care provider in the interim, they may follow-up on your CT findings. For any problems or questions please call [phone] For issues on weeknights after 5pm and weekends please call [phone] and ask for the Vascular Fellow phone counselor. TARAN Pineda 03/20/2021 documented in this encounter Discharge Instructions Discharge InstructionsLauren Nielsen RN - 03/15/2021 11:14 AM EST [facility] Discharge Instructions For Your Puncture Site Activity and Diet: ??? Go Home and rest quietly for the remainder of the day. You may resume your normal activities tomorrow. ??? Resume your usual diet after the procedure. Bandage: There is a sterile dressing over the puncture site consisting of small gauze with a clear dressing (Tegaderm). This dressing should be left in place for 24 hours. If the clear dressing becomesloose you should place tape over the edges to secure it in place. Bathing: Do not take a shower until 24 hours after your procedure; after this time you may shower with the dressing in place, then remove it and pat your skin dry. You may use a bandaid to cover the site if there is any drainage. When to call your healthcare provider: ??? If you notice bleeding or a bulge from the puncture site, you should apply firm pressure over the site for 10-15 minutes, keeping the site covered and call your doctor. If you are still bleeding after 10-15 minutes, reapply pressure, and have someone drive you to the nearest Emergency Department, or call 911. ??? If you develop pain, redness, drainage or swelling at or around the puncture site. ??? If you develop fever equal to or greater than 101F and/or shaking chills. When to call the Interventional Radiology Department: Please call with any questions or concerns. Ifit is during regular office hours, please call [phone]. If it is after regular office hours, oron weekends or holidays, please call [phone] and ask to speak to the Pepper Cutter on callfor Interventional Radiology. You have received medication during your procedure to help lessen anxiety and keep you comfortable.These medications affect judgement and reaction time. We recommend that you do not drive, operate equipment, sign any important documents, or smoke unattended for 24 hours following your procedure. Because of the sedation, be careful on stairs, as you may be unsteady on your feet. You may resume your regular diet as tolerated. IV site -- slight redness, or tenderness is normal, you can use a warm compress. If tenderness and redness increases or foul drainage occurs, please contact your M. D. Revised 03/16/15 Patient InstructionsSelene Barkley PA - 03/14/2021 10:09 AM EST Patient Instructions You were admitted on 03/12/2021 after having right leg venous stenting to improve blood flow return in your leg. You required lower leg incisions to relieve pressure in your legs. All of this went very well. Dr. Rodríguez will want you to be seen in approximately 2 weeks for an incision site check and staple removal. You will follow-up again in 1 month with an ultrasound of the veins in your abdomen and legs. All of this will be ordered and sent to you in the mail. If for some reason you don't receive this within a week or so please call our office as your followup is very important. Anticoagulation: Continue your Eliquis 5 mg twice a day. Call your doctor if: Any fever, any drainage, redness or separation of your incision, increased painor change in temperature of your leg Activity level: Up as tolerated but watch for swelling of your leg. Manage this with leg elevation, toes higher than your nose and also can use acewrapping from your foot to below knee, tape in place, rewrap as necessary. Diet: Resume your previous regular diet Driving: None right now with pain medication use. Shower/Bath: Ok to shower and wash all incisions under running water, pat dry. No soaking in a pool/bath/hottub until cleared to do so by your provider. Wound Care: You may apply a dry gauze dressing as needed to keep your incision sites clean and dry. A referral was placed to the general surgery team at your request for outpatient management of your inguinal hernia. Please call [phone] and ask to speak with the general surgery team if you do not hear regarding this appointment in 2 weeks from discharge. Additionally, you had lung findings that require follow-up CT imaging in 6-12 weeks by your primary care provider. A referral was placed to primary care at [facility] given your transition between providers.You should call [phone] if you do not hear regarding this referral. If you establish care with a different primary care provider in the interim, they may follow-up on your CT findings. For any problems or questions please call [phone] For issues on weeknights after 5pm and weekends please call [phone] and ask for the Vascular Fellow phone counselor. documented in this encounter Medications at Time of Discharge Medication Sig Dispensed Refills Start Date End Date acetaminophen (Tylenol) Take 650 mg by 0 325 mg Tablet mouth every 6 hours as needed for Pain. apixaban (Eliquis) 5 mg Take 5 mg by mouth 0 Tablet 2 times daily. levothyroxine (SYNTHROID) Take 88 mcg by 0 88 mcg Tablet mouth daily. omeprazole (PRILOSEC) 20 Take 20 mg by mouth 0 mg Capsule, Delayed daily. Release(E.C.) oxyCODONE (Roxicodone) 5 Take 1 tablet by 20 tablet 0 03/2005/03/2021 mg Tablet mouth every 6 hours as needed for Pain. documented as of this encounter Progress Notes Carolina Bullard RN - 03/20/2021 3:00 PM EST Discharge note AVS discharge reviewed with patient. Verbalized understanding of review. FU appointment scheduled. Home at this time escorted to E entrance via w/c. [facility] called. See Omero Bullard RN Devi Koroma PT - 03/20/2021 10:29 AM EST 03/20/21 1025 Evaluation & Treatment Document Type contact Total Minutes, Physical Therapy 0 Comment, Session Not Performed Met with pt, issued exercise handouts, pt had already ambulated a full lap on the unit. Plan for d/c today with home services. Pt feeling much more confident about discharge. Hector Rosado - 03/20/2021 10:11 AM EST Offender Employment Specialist Encounter Note Patient Name: Amilcar Pate : [id number] MR#: [id number] Admit Date: 03/12/2021 4:45 AM Hospital Day 8 days Narrative: There was request to visit and pt was awake, alert, oriented and bed and welcoming to visit. Assessment: Patient says that he is feeling good and going home today. Patient is living with and has children. Pt is so thankful for all care and asked for prayers and blessings. Intervention and Outcome:Provided emotional, spiritual support and encouraging presence. Follow-up: yes Time in Direct Care:20 Mins Hector Elkins 03/20/2021 Devi Bai PT - 03/19/2021 4:02 PM EST Physical Therapy Evaluation Patient profile: Amilcar Pate is a 60 y.o. male admitted on 03/12/2021 with PMH hypothyroidism??and??GERD??who presented??to the [facility] ED in transfer [place] [facility] with a mottled, cool RLE and was transferred to [facility] on a heparin gtt. The patient previously had a COVID infection on 02/26 and developedbilateral iliofemoral DVT on 02/21 for which he was started on Eliquis. His Eliquis was held for an EGD with biopsy on 03/11 at [facility]. On arrival to [facility], he was noted to have a five-hour history of acute onset RLE pain, numbness, and paresthesia with blue discoloration from his hip to the toes, as wellas weakness to right foot dorsiflexion and plantarflexion consistent with phlegmasia cerulea dolens. Procedures as follows: 03/12/2021 Right femoral vein cutdown and exposure for delivery of endovascular device Ultrasound and fluoroscopic guided right IJ vein access Suprarenal IVC filter placement Endovascular mechanical thrombectomy of IVC and right common and external iliac vein IVC, right common and right external iliac vein stenting Compression thrombectomy of right lower leg Right leg 4-compartment fasciotomies?? 03/14/2021 Right leg wound debridement. 03/16/2021 Left CFV access, powerpulse/angiojet pharmacomechanical thrombectomy ??Of left iliac veins, left iliac vein stenting, IVC filter retrieval, R lateral wound vac ?03/18/2021 Right leg fasciotomy site??debridement and closure Patient with the following active problems: History reviewed. No pertinent past medical history. Past Surgical History: Procedure Laterality Date ??? PRO COLONOSCOPY, BIOPSY N/A 05/07/2020 COLONOSCOPY FLEXIBLE, WITH BX (WRVU 3.66) performed by Rc Carrasquillo MD at [facility] ??? PRO COLONOSCOPY, DIAGNOSTIC N/A 03/11/2021 COLONOSCOPY, DIAGNOSTIC performed by Titi Stroud MD at [facility] ??? PRO COLONOSCOPY, FLEX, W/DIR SUBMUC INJECT N/A 05/07/2020 COLONOSCOPY WITH DIRECTED SUBMUCOSAL INJ (WRVU 3.66) performed by Rc Carrasquillo MD at [facility] ??? PRO COLONOSCOPY, REMV LESN, SNARE N/A 12/11/2016 COLONOSCOPY, POLYPECTOMY, REMOVAL LESION BY SNARE (WRVU 4.67) performed by Jewels Wilkerson MD at [facility] ??? PRO COLONOSCOPY, REMV LESN, SNARE N/A 05/07/2020 COLONOSCOPY, POLYPECTOMY, REMOVAL LESION BY SNARE (WRVU 4.67) performed by Rc Carrasquillo MD at [facility] ? ? PRO DEBRIDEMENT MUSCLE AND FASCIA 20 SQ CM/< Right 03/14/2021 DEBRIDEMENT SKIN, SUBCU, MUSCLE, LOWER EXTREMITY (WRVU 2.7) performed by Deonte De Los Santos MD at [facility] ? ? PRO DEBRIDEMENT SUBCUTANEOUS TISSUE 20 SQCM/< Right 03/18/2021 DEBRIDEMENT SKIN AND SUBCU, LOWER EXTREMITY (WRVU 1.01) performed by Lukasz Patterson MD at [facility] ??? PRO DECOMPRESS ANT/LAT+POST LEG CMPART Right 03/12/2021 FASCIOTOMY, LOWER LEG, ALL COMPARTMENTS -TIFFANY (WRVU 7.82) [facility] ??? PRO HEMORRHOIDECTOMY, INT/EXT, COMPLX N/A 10/28/2016 HEMORRHOIDECTOMY, INTERNAL & EXTERNAL, COMPLEX (WRVU 6.73) performed by Matt Sullivan MDat [facility] ? ? PRO INSERT VENA CAVA FILTER W/WO VASCULAR ACCESS AND RAD S&I N/A 03/12/2021 INSERT INTRAVASC VENA CAVA FILTER, ENDOVASCR APPR, WHEN PERFORMED (WRVU 4.71) performed by Marlene Rodrígeuz MD at [facility] ??? PRO REMV VEIN CLOT CAVA-ILIAC, LEG INCIS Right 03/12/2021 THROMBECTOMY, VENA CAVA, ILIAC, FEMOROPOPLITEAL VEIN BY LEG INCISION (WRVU 13.37) performed by Marlene Rodríguez MD at [facility] ??? PRO UPPER GI ENDOSCOPY, BIOPSY N/A 03/11/2021 EGD WITH BIOPSY (WRVU 2.49) performed by Titi Stroud MD at [facility] ??? PRO UPPER GI ENDOSCOPY, DIAGNOSTIC N/A 05/07/2020 EGD, UPPER GI ENDOSCOPY performed by Rc Carrasquillo MD at [facility] Social History: Lives with His Home set-up: 2 story home, will stay on 1st floor Bathroom Set-up: tub shower Stairs: 1STE Baseline Mobility:independent Equipment at home: borrowing a commode and FWW Fall history: denies any falls Precautions/Special Considerations: PIV, BLE kassandra and jose wraps, L abdomen bruise, L >R LE edema, anxiety Diet:Regular Activity orders: AAT Mobility and Positioning Recommendations: ?? Pt. to utilize FWW and supervision for ambulation with nursing. ?? Please encourage up to chair for meal times as able. ?? Pt encouraged to ambulate frequently with staff, getting into the bathroom for toileting and walking out in the bustillos >/= 3 times daily as able. Subjective: ???My legs feel really tight?? Objective: Pt seen for evaluation today. Pain: BLE pain,sensitive to the touch, Vital Signs: SpO2: 96% on RA HR: 84bpm BP: 118/67 in supine 97/62 in sitting after standing, symptomatic 102/76 in sitting after ambulating in the pm session Mental Status: alert, oriented to person, place, and time, anxious and very methodical,likes routine, focused on multiple small issues upon resolution of addressing pt's concerns Vision: WNL Skin: LE kassandra, jose wrapped, L thigh edema, L belly bruise from lovenox, PIV Musculoskeletal: ROM: tight LEs, improved with stretches Strength: good UE strength Sensation: LT intact in feet Bed Mobility: Supine to Sit: independent Sit to Supine: independent Transfers: Sit to Stand: min asst to supervision, vcs to push off bed Stand to Sit: supervision Bed to chair: vcs for hand placement Gait: Distance: ~ 100 ft with rest break 1/2 way Device used: FWW Level of assist: vcs for gait sequencing Gait mechanics: Stairs: pt demonstrated stepping up one step using FWW, will practice with pt tomorrow Balance: good sitting balance, lightheaded during morning session, resolved in supine Therex: ankle pumps, heel slides, quad sets, seated knee extension, seated marches for warm ups, circulation and ROM Education: patient has been educated on Bed mobility, Transfers, Stairs, Exercise, Positioning, Safety , Precautions/protocol, Gait , Role of therapy, Balance and Discharge planning and demonstrates understanding. Patient status, treatment, and mobility recommendations discussed with nursing. Assessment: Amilcar Pate was seen today for physical therapy evaluation. Pt presents with the following impairments: pain, integumentary integrity, anxiety, ROM, activity tolerance and gait and locomotion, hemodynamic instability s/p multiple LE procedures. Pt required 2 sessions, increased time, vcs and assist, lots of reassurance to progress today. Tolerated pm session better, demonstrated ambulation distance that would meet his home set up. Pt reports that his is anxious about having him home.. The pt and would benefit from skilled therapy services after discharge from the hospital to maximize functional abilities, answer any questions, instruct her in assisting pt as needed. . Discharge Recommendations: Anticipated Discharge Disposition (PT): home with home health Consult Recommendations: No other consults recommended at this time. Equipment needs: Anticipated Equipment Needs at Discharge (PT): (P) (pt's got a FWW and commode) Goals: To be achieved by 03/20: 1. Pt. to demonstrate knowledge of safety limitations and precautions and will appropriately requestassistance for functional activities and to mobilize. 2. Pt. to demonstrate understanding of appropriate warm up exercises. 3. Pt. to perform bed mobility independently. 4. Pt. to perform sit to stand transfers with modified independence using a front wheeled walker. 5. Pt. to ambulate 25 feet with modified independence using a a front wheeled walker. 6. Pt. to ambulate up/down 1 step/stairs using front wheeled walker or door frame with supervision. 7. Family or caregiver to demonstrate understanding of therapeutic interventions to support the careof the patient. Plan: Therapy Frequency (PT): 1-more time for therapy including patient/family education. Patient/family understand and agree with plan as stated above. 2017 PT Evaluation Code Rationale: ?? Diagnosis & Pertinent Co-Morbidities, personal factors, and present illness affecting Plan ofCare: (see above); Additional personal factors or co- morbidities that impact plan: ?? Total # of Factors: 0 1-2 3+ x ?? Examination of body system impairments, functional limitations and behaviors, and/or participation restrictions. Addressing 1-2 elements Addressing 3 + elements Addressing 4 + elements x ?? Clinical presentation: See assessment above. Stable/Uncomplicated Evolving/Fluctuating Symptoms Unstable/Unpredictable x ?? Clinical decision making of moderate complexity based on pt's functional performance as outlined in this evaluation. Time IN / OUT: 9:30-10:00 and 3:32-4:00 Total Minutes, Physical Therapy: (P) 58 DEVI KOROMA, PT Pager: [phone] Physical Therapy Inpatient Rehabilitation Department Hector Rosado - 03/19/2021 2:49 PM EST Anoop Encounter Note Patient Name: Amilcar Pate : [id number] MR#: [id number] Admit Date: 03/12/2021 4:45 AM Hospital Day 7 days Narrative: Follow-up visit for continued assessment and support. Patient was awake, alert, oriented and in bed. Assessment:Patient coping positively with stresses of illness/hospitalization at this time. Patient says that he is feeling good and hoping to go home. Pt is living with and so thankful for all Blessings in his life. Pt asked for prayers and Sacrament of sick. Intervention and Outcome:Provided emotional, spiritual support and listening and encouraging presence. Offender Employment Specialist services accepted. Conversation to build trusting relationship. Provided pastoral presence. Provided pastoral presence. Provided spiritual support. Follow-up: yes Time in Direct Care:30 Mins Hector Elkins 03/19/2021 Heather Stroud OT - 03/19/2021 11:22 AM EST Occupational Therapy Evaluation Patient profile: Amilcar Pate is a 60 y.o. male admitted on 03/12/2021 with PMH hypothyroidism and GERD who presented to the [facility] ED in transfer [place] [facility] with a mottled, cool RLE and was transferred to [facility] on a heparin gtt. The patient previously had a COVID infection on 02/26 and developed bilateral iliofemoral DVT on 02/21 for which he was started on Eliquis. His Eliquis was held for an EGD with biopsy on 03/11 at [facility]. On arrival to [facility], he was noted to have a five-hour history of acute onset RLE pain, numbness, and paresthesia with blue discoloration from his hip to the toes, as well as weakness to right foot dorsiflexion and plantarflexion consistent with phlegmasia cerulea dolens. ?? Vascular Surgery Operations This Hospitalization 03/18/2021 Right leg fasciotomy site??debridement and closure 03/16/2021 Left CFV access, powerpulse/angiojet pharmacomechanical thrombectomy Of left iliac veins, left iliacvein stenting, IVC filter retrieval, R lateral wound vac 03/14/2021 Right leg wound debridement. 03/12/2021 Right femoral vein cutdown and exposure for delivery of endovascular device Ultrasound and fluoroscopic guided right IJ vein access Suprarenal IVC filter placement Endovascular mechanical thrombectomy of IVC and right common and external iliac vein IVC, right common and right external iliac vein stenting Compression thrombectomy of right lower leg Right leg 4-compartment fasciotomies?? History reviewed. No pertinent past medical history. Past Surgical History: Procedure Laterality Date ??? PRO COLONOSCOPY, BIOPSY N/A 05/07/2020 COLONOSCOPY FLEXIBLE, WITH BX (WRVU 3.66) performed by Rc Carrasquillo MD at [facility] ??? PRO COLONOSCOPY, DIAGNOSTIC N/A 03/11/2021 COLONOSCOPY, DIAGNOSTIC performed by Titi Stroud MD at [facility] ??? PRO COLONOSCOPY, FLEX, W/DIR SUBMUC INJECT N/A 05/07/2020 COLONOSCOPY WITH DIRECTED SUBMUCOSAL INJ (WRVU 3.66) performed by Rc Carrasquillo MD at [facility] ??? PRO COLONOSCOPY, REMV LESN, SNARE N/A 12/11/2016 COLONOSCOPY, POLYPECTOMY, REMOVAL LESION BY SNARE (WRVU 4.67) performed by Jewels Wilkerson MD at [facility] ??? PRO COLONOSCOPY, REMV LESN, SNARE N/A 05/07/2020 COLONOSCOPY, POLYPECTOMY, REMOVAL LESION BY SNARE (WRVU 4.67) performed by Rc Carrasquillo MD at [facility] ? ? PRO DEBRIDEMENT MUSCLE AND FASCIA 20 SQ CM/< Right 03/14/2021 DEBRIDEMENT SKIN, SUBCU, MUSCLE, LOWER EXTREMITY (WRVU 2.7) performed by Deonte De Los Santos MD at [facility] ? ? PRO DEBRIDEMENT SUBCUTANEOUS TISSUE 20 SQCM/< Right 03/18/2021 DEBRIDEMENT SKIN AND SUBCU, LOWER EXTREMITY (WRVU 1.01) performed by Lukasz Patterson MD at [facility] ??? PRO DECOMPRESS ANT/LAT+POST LEG CMPART Right 03/12/2021 FASCIOTOMY, LOWER LEG, ALL COMPARTMENTS -TIFFANY (WRVU 7.82) [facility] ??? PRO HEMORRHOIDECTOMY, INT/EXT, COMPLX N/A 10/28/2016 HEMORRHOIDECTOMY, INTERNAL & EXTERNAL, COMPLEX (WRVU 6.73) performed by Matt Sullivan MDat [facility] ? ? PRO INSERT VENA CAVA FILTER W/WO VASCULAR ACCESS AND RAD S&I N/A 03/12/2021 INSERT INTRAVASC VENA CAVA FILTER, ENDOVASCR APPR, WHEN PERFORMED (WRVU 4.71) performed by Marlene Rodríguez MD at [facility] ??? PRO REMV VEIN CLOT CAVA-ILIAC, LEG INCIS Right 03/12/2021 THROMBECTOMY, VENA CAVA, ILIAC, FEMOROPOPLITEAL VEIN BY LEG INCISION (WRVU 13.37) performed by Marlene Rodríguez MD at [facility] ??? PRO UPPER GI ENDOSCOPY, BIOPSY N/A 03/11/2021 EGD WITH BIOPSY (WRVU 2.49) performed by Titi Stroud MD at [facility] ??? PRO UPPER GI ENDOSCOPY, DIAGNOSTIC N/A 05/07/2020 EGD, UPPER GI ENDOSCOPY performed by Rc Carrasquillo MD at [facility] Social History: Patient lives with his in a 2 and a half story home with 1 CHERYL. Home Setup: Bedroom and bathroom are on the first floor. Bathroom has a tub shower. DME: None reported. Baseline ADL/Mobility: Pt reported he was independent with ADLs and did not use a device for mobility. Precautions/Special Considerations: fall risk, activity as tolerated, ambulate QD Subjective: My left calf feels really tight. Objective: Seen today for OT evaluation. Cognitive Status/Behavior: ?? Behavior / Mood: alert, cooperative and anxious ?? Alert and oriented to: person, place and time ?? Follows commands: multi step ?? Attention: WFL ?? Safety awareness: decreased insight into deficits Vision & Perception: ?? WFL Communication: WFL Range of motion, strength, coordination: Bilateral UEs are within functional limitations LE limitations: Pain, decreased strength, decreased ROM BLE, and edema (L>R) Sensation: Not formally assessed - BLE wrapped in jose bandages. Activities of Daily Living: Self-feeding: Set up Grooming: Modified independent in sitting Dressing: Mod assist LB dressing Bathing: Not assessed Toileting: Transfer: CGA Hygiene: CGA when standing Functional Mobility: Supine to sit: Supervision assist Sit to stand: CGA Ambulation: CGA with FWW, ~100 feet Stand to sit: CGA Sit to supine: Supervision assist Balance: Sitting balance: Good Standing balance: Good with use of FWW Vitals: RA At Rest SpO2 96% Heart Rate 117 Blood Pressure 128/89 Pain: Moderate pain in RLE. Skin: incision R neck, incisions RLE, incision groin, at high risk for skin breakdown Education: patient have been educated on Role of occupational therapy/rehabilitation, Transfers, Assistive device/technique, ADL, Positioning, Safety, Precautions/Protocol, Functional Mobility, Activity pacing/Energy conservation, Balance, Recommendations and Discharge planning and verbalizes understanding. Patient status, treatment, and mobility recommendations discussed with nursing. Assessment: Pt has been seen for occupational therapy evaluation. Amilcar Pate presents with the following performance skill deficits and client factors: increased pain, decreased activity tolerance, decreased flexibility/ROM, decreased strength, coping and skin integrity. These performance deficits have led to activity limitations and participation restrictions in the following areas of occupation: dressing, bathing, home management, work and community mobility. Pt presented as cooperative and anxious but was willing to participate with encouragement. He completed toileting routine before walking approximately 100 feet with a seated rest break after 50 feet. He is requiring mod assist with LB dressing. Pt reported he would have adequate assistance from his and adult daughter upon discharge. Pt was somewhat limited by anxiety in regards to his performance capacity but responded well to direction and emotional support. Pt would benefit from further inpatient OT interventions to address performance deficits and maximize participation and independence with occupations of daily living. Equipment needs at discharge: FWW, shower chair, bedside commode Anticipated Discharge Disposition (OT): home with supervision,home with home health Other Recommendations: ?? Transfer to recliner chair as appropriate and ambulate as tolerated with CGA ?? Encourage participation in ADL's by providing set up A and physical assist only as needed Other Recommendations: No other consults recommended at this time Goals: To be achieved by April 02, 2021. Pt will complete 2 grooming tasks standing at the sink with supervision assist. Pt will complete toileting routine including transfer to the bathroom, clothing management, and hygiene with supervision assist. Pt will complete UB bathing and dressing in sitting after set up. Pt will complete LB dressing with min assist using AE/compensatory strategies as needed. Pt will complete functional transfers and mobility of a household distance with supervision assist for participation in (I)ADLs using self pacing as needed. Plan: OT: Therapy Frequency (OT): 1-3 times/wk Planned OT interventions: Role of occupational therapy/rehabilitation, Transfers, Assistive device/technique, Adaptive equipment training, ADL, Exercise, Breathing exercises, Positioning, Safety, Precautions/Protocol, Functional Mobility, Activity pacing/Energy conservation, Home Management, Balance, Recommendations, Family training and Discharge planning. Total Minutes, Occupational Therapy: 35 2017 OT Evaluation Code Rationale: ?? Diagnosis & Pertinent Co-Morbidities affecting Plan of Care: see PMHx ?? Occupational Profile & Client History: Brief Expanded Extensive X ?? Assessment of Occupational Performance: 1-3 performance deficits 3-5 performance deficits 5 + performance deficits X ?? Clinical Decision Making: Low Moderate High X Clinical decision making of moderate complexity using standardized patient assessment instrument andmeasurable assessment of functional outcome. Pager: [phone] Heather Stroud OT 03/19/2021 Occupational Therapy Rehabilitation Department Delilah Sanchez MD - 03/19/2021 8:14 AM EST Vascular Surgery Progress Note Patient ID Aimlcar Pate is a 60 y.o. male who presented with right leg phlegmasia Vascular Surgery Operations This Hospitalization 03/18/2021 Right leg fasciotomy site??debridement and closure ?? 03/16/2021 Left CFV access, powerpulse/angiojet pharmacomechanical thrombectomy Of left iliac veins, left iliacvein stenting, IVC filter retrieval, R lateral wound vac 03/12/2021 Right femoral vein cutdown and exposure for delivery of endovascular device Ultrasound and fluoroscopic guided right IJ vein access Suprarenal IVC filter placement Endovascular mechanical thrombectomy of IVC and right common and external iliac vein IVC, right common and right external iliac vein stenting Compression thrombectomy of right lower leg Right leg 4-compartment fasciotomies 03/14/2021 Right leg wound debridement Subjective Doing well this morning. Rested comfortably overnight. Pain well controlled. Increasing episodes of heartburn. Last BM on 03/16. Objective BMI: Weight: 95.3 kg (210 lb) (03/13/21 1657) BMI (Calculated): 31.46 BMI Classification: Obese Intake/Output Summary (Last 24 hours) at 03/19/2021 0814 Last data filed at 03/19/2021 0709 Gross per 24 hour Intake 1253 ml Output 2576 ml Net -1323 ml Temp: [36.7 ??C (98.1 ??F)-37 ??C (98.6 ??F)] Heart Rate: [76-85] Resp: [12-18] BP: (105-122)/(62-80) SpO2: [92 %-100 %] Heart Rate from SpO2: [76 bpm-88 bpm] Physical Exam General: alert, cooperative, NAD HEENT: normocephalic, atraumatic Neck: trachea midline Heart: regular rate Pulmonary: non-labored breathing Abdomen: soft, non tender, non distended Neuro: no focal deficits Extremities: right thigh incision clean and dry, RLE dressing c/d/i. Labs Last 3 wbc, hgb, hct plt Recent Labs 03/19/21 0528 03/18/21 0543 03/17/21 0539 WBC 8.2 10.1* 9.6* HGB 8.9* 9.3* 8.8* HCT 27.9* 28.4* 26.6* PLATELET 403* 390* 333 Last 3 Lytes Recent Labs 03/19/2128 03/18/21 0543 03/17/21 0539 NA 139 136 136 K 3.7 3.7 3.8 CL 103 103 104 CO2 23 21* 24 BUN 12 11 10 CREATININE 0.63* 0.60* 0.63* Assessment & Plan Amilcar Pate is a 60 y.o. male s/p IVC and right iliac vein thrombectomy on 03/14/2021 and IVC filter removal and left iliac vein thrombectomy on 03/15/2021, now s/p IVC filter removal, thrombectomy of left iliac veins and stenting on 03/16 and right leg fasciotomy site??debridement and closure on 03/18. Plan to work with PT/OT today and likely discharge tomorrow. PO pain meds Bowel meds Switched from heparin to home NOAC. Bilateral lower extremity SCDs, jose compression PT/OT, activity as tolerated Likely discharge home tomorrow Delilah Sanchez MD 03/19/2021 Active Hospital Problems Diagnosis ??? IVC (inferior vena cava obstruction) Resolved Hospital Problems No resolved problems to display. Active Non-Hospital Problems Diagnosis ??? Diverticular disease of colon ??? Acquired hypothyroidism ??? Acute bilateral deep vein thrombosis (DVT) of iliac veins of lower extremities ??? DVT, lower extremity, proximal, acute, bilateral ??? Gastroesophageal reflux disease without esophagitis ??? IVC thrombosis ??? TMJ dysfunction Scheduled Medications: ??? pantoprazole EC 40 mg Oral Daily ??? apixaban 5 mg Oral BID ??? sodium chloride 0.9 % (flush) 5 mL Intravenous BID ??? senna-docusate 2 tablet Oral BID ??? lidocaine 3 patch Transdermal Q24H And ??? lidocaine 1 patch Transdermal Q24H ??? bisacodyL 10 mg Rectal Daily ??? levothyroxine 88 mcg Oral QAM ??? sodium chloride 0.9 % (flush) 5 mL Intravenous BID ??? acetaminophen 975 mg Oral Q6H ??? polyethylene glycoL (MIRALAX) oral powder 17 g Oral Daily Cristina Wright RN - 03/19/2021 5:07 AM EST OUTCOME EVALUATION NOTE: OUTCOME SUMMARY: Jun had a good night. Pt slept well in between care. AAOx4. VSS on RA. Afebrile. Pain controlled with scheduled tylenol. Pt voiding adequate amounts. Pt passing gas; pt got up to commode to attempt to have a BM x3 this shift without success. BLE wrapped in gauze/JOSE bandages, CDI. Neurovascular checks unchanged. Will continue to monitor. PLAN MOVING FORWARD: Encourage independence. Encourage ambulation. Encourage fluids/nutrition. Maintain pain control. INDIVIDUALIZED FALL PREVENTION INTERVENTIONS: Patient-specific fall risk factors per assessment: [current deficits]: Generalized weakness, recent surgery Assistance [level of assistance required for transfers and ambulation]: 1A stand pivot w/FWW Supervision [direct monitoring required during toileting and ADLs]: Hands on Surveillance [continuous indirect monitoring]: Masimo, purposeful rounding, call hills in reach, bed alarm Patient-specific fall prevention interventions for sensory deficits provided, if applicable: [X] Yes, environmental modifications, lights adjusted to task, non- skid socks CPG GOAL OUTCOME EVALUATION: Ongoing Delilah Sanchez MD - 03/18/2021 5:30 PM EST Surgery Post Op Check Amilcar Pate is a 60 y.o. male status post right leg fasciotomy site debridement and closure S: No nausea/vomiting, chest pain, SOB, pain well controlled, offers no complaints O: Temp: [36.7 ??C (98.1 ??F)-37 ??C (98.6 ??F)] Heart Rate: [76-85] Resp: [12-18] BP: (105-122)/(62-80) SpO2: [92 %-100 %] Heart Rate from SpO2: [76 bpm-88 bpm] I/O last 3 completed shifts: In: 1875 [P.O.:1140; I.V.:735] Out: 5690 [Urine:5650; Other:40] I/O this shift: In: 300 [I.V.:300] Out: 601 [Urine:600; Blood:1] UOP since OR: 600 Physical Exam General: NAD, resting comfortably HEENT: PERRL, anicteric sclerae CVS: Regular rate Pulm: Breathing comfortably on RA Abd: soft, non tender, non distended Ext: RLE: No edema. Skin warm and pink. No tissue loss. Brisk capillary refill. Incisions c/d/i. Closed and wound vac removed in OR. LLE: No edema. Skin warm and pink. No tissue loss. Brisk capillary refill. Left thigh is swollen andmildly TTP; stable from previous exams. Neuro: CN 2-12 grossly intact, nonfocal, moving all extremities. Sensation intact in extremities bilaterally symmetric. Motor function intact in extremities, bilaterally symmetric. Vascular Exam: Bilateral DP/PT pulse signals on doppler AP Amilcar Pate is a 60 y.o. male status post right leg fasciotomy site debridement and closure currently in stable condition and recovering well. - will transition back to eliquis - will get suppository this evening as uncomfortable bc has not has bowel movements - pain well controlled - hemodynamically stable - UOP adequate Delilah Sanchez MD Vascular Surgery 03/18/21 Laura Zhou RN - 03/18/2021 1:55 PM EST Report given to JOSE ELIAS Becker 1400 Bladder scan noted at 570 mL. Patient states he wants to void when he gets back to his room. Laura Zhou RN - 03/18/2021 11:50 AM EST Pt received to pacu 21 stable condition, AAO, connected to monitor Cristina Amador MD - 03/18/2021 7:33 AM EST Vascular Surgery Progress Note Patient ID Amilcar Pate is a 60 y.o. male who presented with right leg phlegmasia Vascular Surgery Operations This Hospitalization 03/16/2021 Left CFV access, powerpulse/angiojet pharmacomechanical thrombectomy Of left iliac veins, left iliacvein stenting, IVC filter retrieval, R lateral wound vac 03/12/2021 Right femoral vein cutdown and exposure for delivery of endovascular device Ultrasound and fluoroscopic guided right IJ vein access Suprarenal IVC filter placement Endovascular mechanical thrombectomy of IVC and right common and external iliac vein IVC, right common and right external iliac vein stenting Compression thrombectomy of right lower leg Right leg 4-compartment fasciotomies 03/14/2021 Right leg wound debridement Subjective Doing well this morning. Rested comfortably overnight. Pain well controlled. Increasing episodes of heartburn. Last BM on 03/16. Objective BMI: Weight: 95.3 kg (210 lb) (03/13/21 1657) BMI (Calculated): 31.46 BMI Classification: Obese Intake/Output Summary (Last 24 hours) at 03/18/2021 0733 Last data filed at 03/18/2021 0324 Gross per 24 hour Intake 616 ml Output 3395 ml Net -2779 ml Temp: [36.8 ??C (98.2 ??F)-37.2 ??C (99 ??F)] Heart Rate: -- Resp: [17-19] BP: (108-142)/(76-88) SpO2: [93 %-97 %] Heart Rate from SpO2: [79 bpm-107 bpm] Physical Exam General: alert, cooperative, NAD HEENT: normocephalic, atraumatic, right neck IJ access site clean and dry without hematoma, dressingremoved Neck: trachea midline Heart: regular rate Pulmonary: non-labored breathing Abdomen: soft, non tender, non distended Neuro: no focal deficits Extremities: right thigh incision clean and dry, RLE with VAC dressing in place, holding suction, R leg LIZETTE drain in place Labs Last 3 wbc, hgb, hct plt Recent Labs 03/18/21 0543 03/17/21 0539 03/16/21 0309 WBC 10.1* 9.6* 9.3 HGB 9.3* 8.8* 8.6* HCT 28.4* 26.6* 26.0* PLATELET 390* 333 292 Last 3 Lytes Recent Labs 03/18/21 0543 03/17/21 0539 03/16/21 0309 NA 136 136 137 K 3.7 3.8 4.2 CL 103 104 103 CO2 21* 24 25 BUN 11 10 13 CREATININE 0.60* 0.63* 0.61* Assessment & Plan Amilcar Pate is a 60 y.o. male s/p IVC and right iliac vein thrombectomy on 03/14/2021 and IVC filter removal and left iliac vein thrombectomy on 03/15/2021, now s/p IVC filter removal, thrombectomy of left iliac veins and stenting on 03/16. Plan to return to OR today for closure of right lateral fa sciotomy incision vs wound vac change. NPO for OR PO pain meds Increased PPI and tums for heartburn Bowel meds Continue therapeutic heparin drip Bilateral lower extremity SCDs, jose compression PT/OT, activity as tolerated Likely discharge home on Thursday Cristina Amador MD 03/18/2021 Active Hospital Problems Diagnosis ??? IVC (inferior vena cava obstruction) Resolved Hospital Problems No resolved problems to display. Active Non-Hospital Problems Diagnosis ??? Diverticular disease of colon ??? Acquired hypothyroidism ??? Acute bilateral deep vein thrombosis (DVT) of iliac veins of lower extremities ??? DVT, lower extremity, proximal, acute, bilateral ??? Gastroesophageal reflux disease without esophagitis ??? IVC thrombosis ??? TMJ dysfunction Scheduled Medications: ??? pantoprazole EC 40 mg Oral Daily ??? sodium chloride 0.9 % (flush) 5 mL Intravenous BID ??? senna-docusate 2 tablet Oral BID ??? lidocaine 3 patch Transdermal Q24H And ??? lidocaine 1 patch Transdermal Q24H ??? bisacodyL 10 mg Rectal Daily ??? levothyroxine 88 mcg Oral QAM ??? sodium chloride 0.9 % (flush) 5 mL Intravenous BID ??? acetaminophen 975 mg Oral Q6H ??? polyethylene glycoL (MIRALAX) oral powder 17 g Oral Daily Cristina Lozano RN - 03/18/2021 6:19 AM EST OUTCOME EVALUATION NOTE: OUTCOME SUMMARY: Jun had an okay night. Awake most of night, anxious and seeking out staff. AAOx4. VSS on RA. Afebrile. Pain well controlled with scheduled meds. Pt voiding adequate amounts via urinal. Pt passing gasand active bowel sounds; pt had no BMs this shift. Neurovascular checks unchanged. LIZETTE drain with small amount of serous drainage, and wound vac to -125 with serosanguinous drainage. BLE wrapped in JOSE bandages. Heparin gtt maintained at 1750 units/hr. NPO as of midnight for OR in morning. Will continue to monitor. PLAN MOVING FORWARD: Encourage independence. Encourage ambulation. Encourage fluids/nutrition. Maintain pain control. Q4hr neurovascular checks. Heparin gtt. INDIVIDUALIZED FALL PREVENTION INTERVENTIONS: Patient-specific fall risk factors per assessment: [current deficits]: Generalized weakness, recent surgery, lines/drains Assistance [level of assistance required for transfers and ambulation]: 1 assist w/FWW Supervision [direct monitoring required during toileting and ADLs]: Hands on Surveillance [continuous indirect monitoring]: Masimo, purposeful rounding, call hills in reach, roomnear unit station Patient-specific fall prevention interventions for sensory deficits provided, if applicable: [X] Yes, environmental modifications, lights adjusted to task, non- skid socks CPG GOAL OUTCOME EVALUATION: Ongoing Hector Rosado - 03/17/2021 1:28 PM EST Offender Employment Specialist Encounter Note Patient Name: Amilcar Pate : [id number] MR#: [id number] Admit Date: 03/12/2021 4:45 AM Hospital Day 5 days Narrative:Visited to introduce and assess acceptance of Offender Employment Specialist services. Patient was awake, alert, oriented and in bed and welcoming to visit. Assessment:Patient coping positively with stresses of illness/hospitalization at this time. Patient says that he is hoping to get better and seems to be thankful as he is improving slowly. Pt is livingwith and has children and grandchildren. Pt loves to talk about family and expressed thankfulness as Medical staff is helping and supporting him. Pt santiago and family are source of courage and strength. Pt asked for prayers and Holy communion. Intervention and Outcome:Provided emotional, spiritual support and listening and encouraging presence. Offender Employment Specialist services accepted. Conversation to build trusting relationship. Provided pastoral presence. Provided pastoral presence. Provided spiritual support. Follow-up: yes Time in Direct Care:20 Mins Hector Elkins 03/17/2021 Sachi Piper MD - 03/17/2021 8:11 AM EST Vascular Surgery Progress Note Patient ID Amilcar Pate is a 60 y.o. male who presented with right leg phlegmasia Vascular Surgery Operations This Hospitalization 03/16/2021 Left CFV access, powerpulse/angiojet pharmacomechanical thrombectomy of left iliac veins, left iliacvein stenting, IVC filter retrieval, R lateral wound vac 03/12/2021 Right femoral vein cutdown and exposure for delivery of endovascular device Ultrasound and fluoroscopic guided right IJ vein access Suprarenal IVC filter placement Endovascular mechanical thrombectomy of IVC and right common and external iliac vein IVC, right common and right external iliac vein stenting Compression thrombectomy of right lower leg Right leg 4-compartment fasciotomies 03/14/2021 Right leg wound debridement Subjective Pain controlled, denies nausea, vomiting, chest pain or shortness of breath. Doing well. Pain controlled. Would like to work with PT today. Objective BMI: Weight: 95.3 kg (210 lb) (03/13/21 1657) BMI (Calculated): 31.46 BMI Classification: Obese Intake/Output Summary (Last 24 hours) at 03/17/2021 0811 Last data filed at 03/17/2021 0806 Gross per 24 hour Intake 1750 ml Output 3905 ml Net -2155 ml Temp: [36.8 ??C (98.2 ??F)-38.2 ??C (100.8 ??F)] Heart Rate: [78-125] Resp: [13-24] BP: (108-134)/(71-93) SpO2: [94 %-99 %] Heart Rate from SpO2: [78 bpm-122 bpm] Physical Exam General: alert, cooperative, NAD HEENT: normocephalic, atraumatic, right neck IJ access site clean and dry without hematoma Neck: trachea midline Heart: regular rate Pulmonary: non-labored breathing Abdomen: soft, non tender, non distended Neuro: no focal deficits Extremities: right thigh incision clean and dry, RLE with VAC dressing in place, holding suction, R leg LIZETTE drain in place Labs Last 3 wbc, hgb, hct plt Recent Labs 03/17/21 0539 03/16/21 0309 03/15/21 0041 WBC 9.6* 9.3 9.4 HGB 8.8* 8.6* 8.9* HCT 26.6* 26.0* 27.8* PLATELET 333 292 359* Last 3 Lytes Recent Labs 03/17/21 0539 03/16/21 0309 03/15/21 0041 NA 136 137 135 K 3.8 4.2 3.8 CL 104 103 101 CO2 24 25 25 BUN 10 13 10 CREATININE 0.63* 0.61* 0.62* Assessment & Plan Amilcar Pate is a 60 y.o. male s/p IVC and right iliac vein thrombectomy on 03/14/2021 and IVC filter removal and left iliac vein thrombectomy on 03/15/2021 Regular diet PO pain meds Bowel regimen Continue therapeutic heparin drip Bilateral lower extremity SCDs, jose compression Plan for VAC change or possible closure on Thursday in the OR NPO after midnight PT/OT, activity as tolerated Sachi Ford MD 03/17/2021 Active Hospital Problems Diagnosis ??? IVC (inferior vena cava obstruction) Resolved Hospital Problems No resolved problems to display. Active Non-Hospital Problems Diagnosis ??? Diverticular disease of colon ??? Acquired hypothyroidism ??? Acute bilateral deep vein thrombosis (DVT) of iliac veins of lower extremities ??? DVT, lower extremity, proximal, acute, bilateral ??? Gastroesophageal reflux disease without esophagitis ??? IVC thrombosis ??? TMJ dysfunction Scheduled Medications: ??? sodium chloride 0.9 % (flush) 5 mL Intravenous BID ??? senna-docusate 2 tablet Oral BID ??? lidocaine 3 patch Transdermal Q24H And ??? lidocaine 1 patch Transdermal Q24H ??? bisacodyL 10 mg Rectal Daily ??? levothyroxine 88 mcg Oral QAM ??? pantoprazole EC 20 mg Oral Daily ??? sodium chloride 0.9 % (flush) 5 mL Intravenous BID ??? acetaminophen 975 mg Oral Q6H ??? polyethylene glycoL (MIRALAX) oral powder 17 g Oral Daily Chani Longo RN - 03/16/2021 6:30 PM EST Illness Severity [x] Stable [] Watcher [] Unstable Patient Summary Reason for admission: IVC obstruction Relevant PMH: PMH hypothyroidism and GER[facility] in transfer from [facility] on 03/12 early AM. The patient previously had a COVID infection on 02/26 and developed bilateral iliofemoral DVT on 02/21 for which he was started on Eliquis. His Eliquis was held for an EGD with biopsy on 03/11 at [facility]. This morning, he presented to [facility] with a mottled, cool RLE and was transferred to [facility] on a heparin gtt. On arrival to [facility], he was noted to have a five-hour history of acute onset RLE pain, numbness, and paresthesia with blue discoloration from his hip to the toes. His last dose of Eliquis was on 03/08. Hewas able to wiggle his toes and dorsiflex and plantarflex his foot although limited by pain. CT venogram demonstrated occlusive thrombus throughout the entire infrarenal IVC, bilateral CIV, IIV, and EIV as well as thrombus in the right CFV. He is now s/p right SFA cutdown, stenting of IVC and right CIV, right lower extremity fasciotomies, and IVC filter deployment via 12-Fr right IJV access. Significant 24 hour events: 03/16 day- downgrade to L5, VSS, tachy with activity, NSR on monitor. On RA. Reporting headache this AM. Esgic ordered and provided, good effect. Spiked temp this evening, provider notified, rechecked and was lower, continue to monitor, notify if over 38C. Acuña out this AM, voiding, low PVRs, BM todayup to commode, mobilizing to side of bed and up to commode. Wound vac to RLE, active therapy. LIZETTE with scant output. Tolerating diet. Therapeutic heparin gtt, AM UFH. WCM. Neuro: WDL ex. Headache Cardiac:WDL NSR on telemetry, tolerating rate and rhythm Neurovasc: pulse assessment,neurovascular assessment lower,.WDL except (pulses by doppler, cap refil<3 sec, red, warm toes, denies n/T) Pulmonary: WDL ex. Reports pain with deep breaths GI: .WDL except,GI symptoms constipation, gas discomfort BM today LBM:03/16/21 : .WDL except,voiding ability/characteristics acuña catheter out this AM, DTV 1999, one more bladder scan due, clear yellow , adequate UOP Acuña [] Last Acuña Care Done: Indication: Bladder Scan/SC: due at 1999 Musculoskeletal: encourage oob and activity Mobility Plan: currently bed rest Fall risk: Medium (25-44) Q2h turns [] Skin: .WDL except,characteristics incisions, bruising, jose wraps, LIZETTE drain, wound vac Psych/Social: and son support, ok to provide son with updates Consults: PT [] OT [] TRIPE SCRAPER [] Psych [] Action List Q4 VS Q4 neurovascular check Pain management Monitor temp AM labs, release UFH Prn Esgic for headaches/ tums for indigestion INDIVIDUALIZED FALL PREVENTION INTERVENTIONS: Patient-specific fall risk factors per assessment: [current deficits]: tethering lines, BLE weakness Assistance [level of assistance required for transfers and ambulation]: 1 assist w FWW, up to commode Supervision [direct monitoring required during toileting and ADLs]: hands on Surveillance [continuous indirect monitoring]: purposeful rounding, bed near unit station, bed alarmin use Patient-specific fall prevention interventions for sensory deficits provided, if applicable: lighting adjusted, non skid socks, RN assist Delilah Haro MD - 03/16/2021 8:08 AM EST Vascular Surgery Progress Note Patient ID Amilcar Pate is a 60 y.o. male who presented with right leg phlegmasia Vascular Surgery Operations This Hospitalization 03/16/2021 Left CFV access, powerpulse/angiojet pharmacomechanical thrombectomy of left iliac veins, left iliacvein stenting, IVC filter retrieval, R lateral wound vac 03/12/2021 Right femoral vein cutdown and exposure for delivery of endovascular device Ultrasound and fluoroscopic guided right IJ vein access Suprarenal IVC filter placement Endovascular mechanical thrombectomy of IVC and right common and external iliac vein IVC, right common and right external iliac vein stenting Compression thrombectomy of right lower leg Right leg 4-compartment fasciotomies 03/14/2021 Right leg wound debridement Subjective Pain controlled, denies nausea, vomiting, chest pain or shortness of breath. States both legs feel improved from prior to the operation, able to move his right toes and ankle more today than he was able to preoperatively Objective BMI: Weight: 95.3 kg (210 lb) (03/13/21 1657) BMI (Calculated): 31.46 BMI Classification: Obese Intake/Output Summary (Last 24 hours) at 03/16/2021 0808 Last data filed at 03/16/2021 0741 Gross per 24 hour Intake 2268 ml Output 4310 ml Net -2042 ml Temp: [36.6 ??C (97.9 ??F)-37.5 ??C (99.5 ??F)] Heart Rate: [71-98] Resp: [13-29] BP: (96-154)/(57-98) SpO2: [90 %-99 %] Heart Rate from SpO2: [64 bpm-93 bpm] Physical Exam General: alert, cooperative, NAD HEENT: normocephalic, atraumatic, right neck IJ access site clean and dry without hematoma Neck: trachea midline Heart: regular rate Pulmonary: non-labored breathing Abdomen: soft, non tender, non distended Neuro: no focal deficits Extremities: right thigh incision clean and dry, RLE with VAC dressing in place, holding suction Labs Last 3 wbc, hgb, hct plt Recent Labs 03/16/2130803/15/21 0041 03/14/21 0035 WBC 9.3 9.4 11.7* HGB 8.6* 8.9* 8.7* HCT 26.0* 27.8* 26.8* PLATELET 292 359* 311 Last 3 Lytes Recent Labs 03/16/2130803/15/21 0041 03/14/21 0035 NA 137 135 135 K 4.2 3.8 3.7 CL 103 101 103 CO2 25 25 23 BUN 13 10 12 CREATININE 0.61* 0.62* 0.60* Assessment & Plan Amilcar Pate is a 60 y.o. male 2 Days Post-Op s/p IVC and R iliac vein thrombectomy. Feeling much better since yesterday's procedure. Will transfer to floor status today. Continue therapeutic heparin drip Bilateral lower extremity SCDs, jose compression Plan for VAC change or possible closure on Thursday. Delilah Sanchez MD 03/16/2021 Active Hospital Problems Diagnosis ??? IVC (inferior vena cava obstruction) Resolved Hospital Problems No resolved problems to display. Active Non-Hospital Problems Diagnosis ??? Diverticular disease of colon ??? Acquired hypothyroidism ??? Acute bilateral deep vein thrombosis (DVT) of iliac veins of lower extremities ??? DVT, lower extremity, proximal, acute, bilateral ??? Gastroesophageal reflux disease without esophagitis ??? IVC thrombosis ??? TMJ dysfunction Scheduled Medications: ??? sodium chloride 0.9 % (flush) 5 mL Intravenous BID ??? senna-docusate 2 tablet Oral BID ??? lidocaine 3 patch Transdermal Q24H And ??? lidocaine 1 patch Transdermal Q24H ??? bisacodyL 10 mg Rectal Daily ??? levothyroxine 88 mcg Oral QAM ??? pantoprazole EC 20 mg Oral Daily ??? sodium chloride 0.9 % (flush) 5 mL Intravenous BID ??? acetaminophen 975 mg Oral Q6H ??? polyethylene glycoL (MIRALAX) oral powder 17 g Oral Daily Stu Olsen RN - 03/16/2021 5:12 AM EST OUTCOME EVALUATION NOTE: OUTCOME SUMMARY: Pt is A/Ox4 and VSS on RA. No complaints of nausea, SOB, numbness/tingling, or pain. Heparin gtt therapeutic at 1750 units/hr. Acuña has had adequate urine output throughout shift. Pt did have BM this shift. Q2 neuro vasc checks remain unchanged, pulses positive via Doppler. Both lower extremities areACE wrapped. NPWT set to -125 mm Hg on RLE. R neck dressing is gauze and tegaderm, CDI. L thigh dressing is gauze and tegaderm, CDI. R thigh dressing is gauze and tegaderm, CDI. LIZETTE draining scant serous fluid. Rest and sleep promoted. PLAN MOVING FORWARD: Discharge planning Q2 neuro vasc checks Monitor I&O INDIVIDUALIZED FALL PREVENTION INTERVENTIONS: Patient-specific fall risk factors per assessment: [current deficits]: Tethering lines, recent surgery, weakness, unfamiliar environment Assistance [level of assistance required for transfers and ambulation]: Bed rest Supervision [direct monitoring required during toileting and ADLs]: Bed rest Surveillance [continuous indirect monitoring]: Purposeful rounding, call hills within reach Patient-specific fall prevention interventions for sensory deficits provided, if applicable: [X] No CPG GOAL OUTCOME EVALUATION: Cristina Amador MD - 03/15/2021 3:28 PM EST Surgery Post Op Check Amilcar Pate is a 60 y.o. male status post Left CFV access, powerpulse/angiojet pharmacomechanical thrombectomy of left iliac veins, left iliac vein stenting, IVC filter retrieval. R lateral wound vac changed S: No nausea/vomiting, chest pain, SOB. Denies numbness, tingling. Pain in left thigh has improved. Pain well controlled, offers no complaints O: Temp: [36.8 ??C (98.3 ??F)-37.1 ??C (98.7 ??F)] Heart Rate: [71-98] Resp: [15-26] BP: (96-154)/(57-98) SpO2: [90 %-99 %] Heart Rate from SpO2: [70 bpm-87 bpm] I/O last 3 completed shifts: In: 3087.1 [P.O.:1580; I.V.:1502.1; Other:5] Out: 4425 [Urine:4390; Other:25; Blood:10] I/O this shift: In: 304 [P.O.:200; I.V.:104] Out: 725 [Urine:725] UOP since OR: 725 Physical Exam General: NAD, resting comfortably HEENT: PERRL, anicteric sclerae CVS: Regular rate Pulm: Breathing comfortably on 1L NC Abd: soft, non tender, non distended Ext: Left groin access site soft and without hematoma. LLE skin warm and pink, in JOSE bandage to thigh, with PT/DP signals. RLE with wound vac on calf, wrapped with JOSE bandage to thigh, with PT/DP signals. Neuro: CN 2-12 grossly intact, nonfocal, moving all extremities. Sensation intact in extremities bilaterally symmetric. Motor function intact in extremities, bilaterally symmetric. AP Amilcar Pate is a 60 y.o. male status post Left CFV access, powerpulse/angiojet pharmacomechanical thrombectomy of left iliac veins, left iliac vein stenting, IVC filter retrieval, R lateral wound vac change currently in stable condition and recovering well -heparin restarted immediately after OR and should continue - pain well controlled - hemodynamically stable - UOP adequate Cristina Amador MD Vascular Surgery 03/15/21 Estuardo Herrera PT - 03/15/2021 9:10 AM EST 03/15/21 0910 Evaluation & Treatment Document Type contact Total Minutes, Physical Therapy 0 Billing Code PT consult received, chart reviewed. Attempted to see pt today, however transpo arrivedto bring pt to procedure. Will defer PT eval today. Ambrosio Boateng, JANETH Physical Therapy Inpatient Rehab Estuardo Urrutia PT Pager [phone] John Baron MD - 03/15/2021 9:09 AM EST Vascular Surgery Progress Note Patient ID Amilcar Pate is a 60 y.o. male who presented with right leg phlegmasia Vascular Surgery Operations This Hospitalization 03/12/2021 Right femoral vein cutdown and exposure for delivery of endovascular device Ultrasound and fluoroscopic guided right IJ vein access Suprarenal IVC filter placement Endovascular mechanical thrombectomy of IVC and right common and external iliac vein IVC, right common and right external iliac vein stenting Compression thrombectomy of right lower leg Right leg 4-compartment fasciotomies 03/14/2021 Right leg wound debridement Subjective Pain controlled, denies nausea, vomiting, chest pain or shortness of breath. States both legs feel improved from prior to the operation, able to move his right toes and ankle more today than he was able to preoperatively NPO for IR today, IVC removal, vac dressing change Objective BMI: Weight: 95.3 kg (210 lb) (03/13/21 1657) BMI (Calculated): 31.46 BMI Classification: Obese Intake/Output Summary (Last 24 hours) at 03/15/2021 0909 Last data filed at 03/15/2021 0800 Gross per 24 hour Intake 2524.83 ml Output 2880 ml Net -355.17 ml Temp: [36.8 ??C (98.2 ??F)-37.6 ??C (99.7 ??F)] Heart Rate: [71-92] Resp: [11-23] BP: (103-135)/(67-88) SpO2: [91 %-100 %] Heart Rate from SpO2: [71 bpm-94 bpm] Physical Exam General: alert, cooperative, NAD HEENT: normocephalic, atraumatic, right neck IJ access site clean and dry without hematoma Neck: trachea midline Heart: regular rate Pulmonary: non-labored breathing Abdomen: soft, non tender, non distended Neuro: no focal deficits Extremities: right thigh incision clean and dry, RLE with VAC dressing in place, holding suction Labs Last 3 wbc, hgb, hct plt Recent Labs 03/15/21 0041 03/14/21 0035 03/13/21 2101 WBC 9.4 11.7* 9.3 HGB 8.9* 8.7* 9.0* HCT 27.8* 26.8* 27.8* PLATELET 359* 311 314 Last 3 Lytes Recent Labs 03/15/21 0041 03/14/21 0035 03/13/21 1741 NA 135 135 138 K 3.8 3.7 3.9 CL 101 103 104 CO2 25 23 24 BUN 10 12 11 CREATININE 0.62* 0.60* 0.68* Assessment & Plan Amilcar Pate is a 60 y.o. male 1 Day Post-Op s/p IVC and R iliac vein thrombectomy. Hgb 8.7 from 10.6 on arrival; Postoperative Acute blood loss anemia expected with dilution component CKs peaked at 10,000 and now downtrending to 7,000 following fasciotomies for possible RLE compartment syndrome with rhabdomyolysis / ischemic reperfusion injury NPO since MN for IVC removal today Continue therapeutic heparin drip Bilateral lower extremity SCDs, jose compression Plan for return to IR today, will complete RLE VAC dressing change while under sedation Norma Mcmillan APRN Vascular Surgery Fellow pager [phone] 03/15/2021 ASA: 2 Mal: 3 Cr Lab Results Component Value Date CREATININE 0.62 (L) 03/15/2021 Active Hospital Problems Diagnosis ??? IVC (inferior vena cava obstruction) Resolved Hospital Problems No resolved problems to display. Active Non-Hospital Problems Diagnosis ??? Diverticular disease of colon ??? Acquired hypothyroidism ??? Acute bilateral deep vein thrombosis (DVT) of iliac veins of lower extremities ??? DVT, lower extremity, proximal, acute, bilateral ??? Gastroesophageal reflux disease without esophagitis ??? IVC thrombosis ??? TMJ dysfunction Scheduled Medications: ??? senna-docusate 2 tablet Oral BID ??? lidocaine 3 patch Transdermal Q24H And ??? lidocaine 1 patch Transdermal Q24H ??? bisacodyL 10 mg Rectal Daily ??? levothyroxine 88 mcg Oral QAM ??? pantoprazole EC 20 mg Oral Daily ??? sodium chloride 0.9 % (flush) 5 mL Intravenous BID ??? acetaminophen 975 mg Oral Q6H ??? polyethylene glycoL (MIRALAX) oral powder 17 g Oral Daily Toshia Bauman I, OT - 03/15/2021 9:05 AM EST 03/15/21 0905 Evaluation & Treatment Document Type contact Total Minutes, Occupational Therapy 15 Comment, Session Not Performed met w pt to initiate OT evaluation; gathered social history; evaluation interrupted by transport to go to IR; will follow up w OT eval as available/appropriate; social history includes: pt lives in [place], [place] in a 2 and a half story home [address]; bedroom and bathroom on 1stfloor w tub shower; baseline independent and worked; lives w pt and volunteers Chani Longo RN - 03/14/2021 4:57 PM EST Illness Severity [x] Stable [] Watcher [] Unstable Patient Summary Reason for admission: IVC obstruction Relevant PMH: PMH hypothyroidism and [facility] in transfer from [facility] on 03/12 early AM. The patient previously had a COVID infection on 02/26 and developed bilateral iliofemoral DVT on 02/21 for which he was started on Eliquis. His Eliquis was held for an EGD with biopsy on 03/11 at [facility]. This morning, he presented to [facility] with a mottled, cool RLE and was transferred to [facility] on a heparin gtt. On arrival to [facility], he was noted to have a five-hour history of acute onset RLE pain, numbness, and paresthesia with blue discoloration from his hip to the toes. His last dose of Eliquis was on 03/08. Hewas able to wiggle his toes and dorsiflex and plantarflex his foot although limited by pain. CT venogram demonstrated occlusive thrombus throughout the entire infrarenal IVC, bilateral CIV, IIV, and EIV as well as thrombus in the right CFV. He is now s/p right SFA cutdown, stenting of IVC and right CIV, right lower extremity fasciotomies, and IVC filter deployment via 12-Fr right IJV access. Significant 24 hour events: 03/14 day- First case this morning in OR for washout and vac placement to RLE fasciotomy sites. CTA this afternoon, see results. Oriented x4, VSS, on 2 LNC for short while after return from PACU, currently on RA. Art line remains in place is patent and correlating with non-invasive BP cuff. Reporting mild pain in BLE upon return, tylenol provided, other medications offered but refused. Legs elevated off bed. Wound vac to RLE, active therapy, -125. LIZETTE in place, with little output, dressings to BLE CDI, Acuña in place with adequate UOP. NO BM today, endorses gas, and gas discomfort. Continues with q2 vitals and q2 neurovascular checks. NPO at midnight for venogram. Remains on heparin gtt, next UFH [id number]. WCM Neuro: WDL ex. Headache Cardiac:WDL NSR on telemetry, tolerating rate and rhythm Neurovasc: pulse assessment,neurovascular assessment lower,.WDL except (pulses by doppler, cap refil<3 sec, red, warm toes, denies n/T) Pulmonary: WDL ex. Reports pain with deep breaths GI: .WDL except,GI symptoms constipation, gas discomfort, bed li offered LBM:03/13/21 : .WDL except,voiding ability/characteristics acuña catheter, clear yellow , adequate UOP Acuña [x] Last Acuña Care Done: (Significant) catheter care provided Indication: Immobility without alternative Bladder Scan/SC: Musculoskeletal: .WDL except,mobility bedrest, position changes independent in bed Mobility Plan: currently bed rest Fall risk: Medium (25-44) Q2h turns [] Skin: .WDL except,characteristics incisions, bruising, jose wraps Psych/Social: and son support, ok to provide son with updates Consults: PT [] OT [] TRIPE SCRAPER [] Psych [] Action List Q2 virals Q2 neurovascular check NPO at midnight for VENOGRAM Pain management Serial Labs: UFH Q6 Q6H CBC, BMP, Mg/P, CK, ABG Situational Awareness & Contingency Planning Monitor neurovascular status, if change in sensation, color, temperature, cap refil, pulses, then notify team for assessment and intervention. INDIVIDUALIZED FALL PREVENTION INTERVENTIONS: Patient-specific fall risk factors per assessment: [current deficits]: tethering lines, generalized weakness, mild deficit RLE Assistance [level of assistance required for transfers and ambulation]: currently bed rest Supervision [direct monitoring required during toileting and ADLs]: hands on 1-2 assist Surveillance [continuous indirect monitoring]: purposeful rounding, bed near unit station, bed alarmin place Patient-specific fall prevention interventions for sensory deficits provided, if applicable: yes, lighting adjusted, glasses on, RN assist, nonskid socks Lauren Nielsen RN - 03/14/2021 4:44 PM EST ANGIO NURSING DATABASE Name: AMILCAR PATE Date of : 1960 AGE: 60 y.o. Address: [address] [place] [address] (home) Mobile: Telephone Information: Referring Provider: Rosemary Smith REASON FOR VISIT: Aortoiliac Venogram and Filter Removal Order Questions Answers Laterality Bilateral Access Site? left femoral Extremity Lower Reason for exam and clinical history: history of iliocaval dvt extending into RLE Exam/Procedure requested: venogram aortoiliac, filter removal What labs need to be collected during imaging study? n/a Is the patient on anticoagulant / antiplatelet therapy? Heparin,Aspirin Does patient require sedation? IV Please ensure a History and Physical exam is completed within 30 days of the Radiology Procedure OK Requested Date 03/15/21 No Known Allergies Pertinent PMH: Patient Active [...] 3.66) performed by Rc Carrasquillo MD at [facility] ??? PRO COLONOSCOPY, DIAGNOSTIC N/A 03/11/2021 COLONOSCOPY, DIAGNOSTIC performed by Titi Stroud MD at [facility] ??? PRO COLONOSCOPY, FLEX, W/DIR SUBMUC INJECT N/A 05/07/2020 COLONOSCOPY WITH DIRECTED SUBMUCOSAL INJ (WRVU 3.66) performed by Rc Carrasquillo MD at [facility] ??? PRO COLONOSCOPY, REMV LESN, SNARE N/A 12/11/2016 COLONOSCOPY, POLYPECTOMY, REMOVAL LESION BY SNARE (WRVU 4.67) performed by Jewels Wilkerson MD at [facility] ??? PRO COLONOSCOPY, REMV LESN, SNARE N/A 05/07/2020 COLONOSCOPY, POLYPECTOMY, REMOVAL LESION BY SNARE (WRVU 4.67) performed by Rc Carrasquillo MD at [facility] ??? PRO DECOMPRESS ANT/LAT+POST LEG CMPART Right 03/12/2021 FASCIOTOMY, LOWER LEG, ALL COMPARTMENTS -TIFFANY (WRVU 7.82) [facility] ??? PRO HEMORRHOIDECTOMY, INT/EXT, COMPLX N/A 10/28/2016 HEMORRHOIDECTOMY, INTERNAL & EXTERNAL, COMPLEX (WRVU 6.73) performed by Matt Sullivan MDat [facility] ? ? PRO INSERT VENA CAVA FILTER W/WO VASCULAR ACCESS AND RAD S&I N/A 03/12/2021 INSERT INTRAVASC VENA CAVA FILTER, ENDOVASCR APPR, WHEN PERFORMED (WRVU 4.71) performed by Marlene Rodríguez MD at [facility] OR ??? PRO REMV VEIN CLOT CAVA-ILIAC, LEG INCIS Right 03/12/2021 THROMBECTOMY, VENA CAVA, ILIAC, FEMOROPOPLITEAL VEIN BY LEG INCISION (WRVU 13.37) performed by Marlene Rodríguez MD at [facility] ??? PRO UPPER GI ENDOSCOPY, BIOPSY N/A 03/11/2021 EGD WITH BIOPSY (WRVU 2.49) performed by Titi Stroud MD at [facility] ??? PRO UPPER GI ENDOSCOPY, DIAGNOSTIC N/A 05/07/2020 EGD, UPPER GI ENDOSCOPY performed by Rc Carrasquillo MD at [facility] Date/Procedure Meds Given/Comments 03/15/21 LLE venogram w/ power pulse, stents to L. Iliac vein and IVC filter removal Fentanyl 500 mcgIV, Versed 6 mg IV, Cefazolin 2 g IV, Heparin 16,000 units, Alteplase 10 mg w/ power pulse, intermittent c/o pain, tolerated well otherwise 10:26 to procedure room 3 via stretcher. Onto table supine. All monitors, O2, safety strap in place.Meds per protocol. Laboratory Results: Lab Results Component Value Date INR 1.8 03/12/2021 Lab Results Component Value Date CREATININE 0.60 (L) 03/14/2021 Lab Results Component Value Date K 3.7 03/14/2021 Lab Results Component Value Date PLATELET 311 03/14/2021 Medications: Prior to Admission medications Medication Sig Start Date End Date Taking? Authorizing Provider acetaminophen (Tylenol) 325 mg Tablet Take 650 mg by mouth every 6 hours as needed for Pain. Yes PROVIDER, HISTORICAL apixaban (Eliquis) 5 mg Tablet Take 5 mg by mouth 2 times daily. Yes PROVIDER, HISTORICAL levothyroxine (SYNTHROID) 88 mcg Tablet Take 88 mcg by mouth daily. Yes PROVIDER, HISTORICAL omeprazole (PRILOSEC) 20 mg Capsule, Delayed Release(E.C.) Take 20 mg by mouth daily. Yes PROVIDER, HISTORICAL Delilah Sanchez MD - 03/14/2021 4:01 PM EST Vascular Surgery Post Op Check Amilcar Pate is a 60 y.o. male status post irrigation and debridement of fasciotomies on left lower extremity; closure of medial fasciotomy of left lower extremity, approximation of lateral incision on left lower extremity with wound vac placed over. S: No nausea/vomiting, chest pain, SOB, pain well controlled, offers no complaints O: Temp: [37 ??C (98.6 ??F)-37.6 ??C (99.7 ??F)] Heart Rate: [71-83] Resp: [11-22] BP: (104-123)/(67-88) SpO2: [91 %-100 %] Heart Rate from SpO2: [71 bpm-83 bpm] I/O last 3 completed shifts: In: 4762.3 [P.O.:2823; I.V.:1939.3] Out: 4410 [Urine:4380; Other:30] I/O this shift: In: 772.5 [P.O.:200; I.V.:572.5] Out: 1410 [Urine:1400; Blood:10] UOP since OR: 1400 Physical Exam General: NAD, resting comfortably HEENT: PERRL, anicteric sclerae CVS: Regular rate Pulm: Breathing comfortably on RA Abd: soft, non tender, non distended Ext: RLE: No edema. Wrapped in kerlix, jose. Skin warm and pink. Brisk capillary refill LLE: No edema. Wrapped in kerlix, jose. Wound vac holding pressure. Skin warm and pink. Brisk capillary refill Neuro: CN 2-12 grossly intact, nonfocal, moving all extremities. Sensation intact in extremities bilaterally symmetric. Motor function intact in extremities, bilaterally symmetric. Vascular Exam: Bilateral PT signals on doppler AP Amilcar Pate is a 60 y.o. male status postrigation and debridement of fasciotomies on left lower extremity; closure of medial fasciotomy of left lower extremity, approximation of lateral incision on left lower extremity with wound vac placed over, currently in stable condition and recovering well. - given regular diet - pain well controlled - hemodynamically stable - UOP adequate Delilah Sanchez MD Vascular Surgery 03/14/21 Dione Givens RN - 03/14/2021 9:56 AM EST 0924 : Patient received from operating room,alarms on and set appropriate for patient, vs's, patientcomplaining of right leg pain, medicated with dilaudid iv, heparin drip remains at 1750 units hour. 1000: Patient continues to complain of right calf pain, medicated with oxycodone po and dilaudid iv,vs's. 1045 : Patient states pain more tolerable after oxycodone, heparin, ufh sent to lab. 1100: Report given to floor, vs's, transported patient to floor on monitor. Delilah Haro MD - 03/14/2021 7:33 AM EST Vascular Surgery Progress Note Patient ID Amilcar Pate is a 60 y.o. male who presented with right leg phlegmasia Vascular Surgery Operations This Hospitalization 03/12/2021 Right femoral vein cutdown and exposure for delivery of endovascular device Ultrasound and fluoroscopic guided right IJ vein access Suprarenal IVC filter placement Endovascular mechanical thrombectomy of IVC and right common and external iliac vein IVC, right common and right external iliac vein stenting Compression thrombectomy of right lower leg Right leg 4-compartment fasciotomies Subjective Pain controlled, denies nausea, vomiting, chest pain or shortness of breath. States both legs feel improved from prior to the operation. Able to move his right toes and ankle more today than he was able to preoperatively Objective BMI: Weight: 95.3 kg (210 lb) (03/13/21 1657) BMI (Calculated): 31.46 BMI Classification: Obese Intake/Output Summary (Last 24 hours) at 03/14/2021 0733 Last data filed at 03/14/2021 0600 Gross per 24 hour Intake 1732.3 ml Output 2230 ml Net -497.7 ml Temp: [36.2 ??C (97.2 ??F)-37.8 ??C (100 ??F)] Heart Rate: [78-105] Resp: [17-25] BP: (106-124)/(61-76) SpO2: [93 %-97 %] Heart Rate from SpO2: [78 bpm-101 bpm] Physical Exam General: alert, cooperative, NAD HEENT: normocephalic, atraumatic, right neck IJ access site clean and dry without hematoma Neck: trachea midline Heart: regular rate Pulmonary: non-labored breathing Abdomen: soft, non tender, non distended Neuro: no focal deficits Extremities: right thigh incision clean and dry, will evaluate fasciotomy sites in OR today Labs Last 3 wbc, hgb, hct plt Recent Labs 03/14/21 0035 03/13/21 2101 03/13/21 0540 WBC 11.7* 9.3 7.8 HGB 8.7* 9.0* 8.8* HCT 26.8* 27.8* 27.6* PLATELET 311 314 294 Last 3 Lytes Recent Labs 03/14/21 0035 03/13/21 1741 03/13/21 0540 NA 135 138 136 K 3.7 3.9 3.8 CL 103 104 105 CO2 23 24 23 BUN 12 11 10 CREATININE 0.60* 0.68* 0.61* Assessment & Plan Amilcar Pate is a 60 y.o. male 2 Days Post-Op s/p IVC and R iliac vein thrombectomy CT venogram planned for today Continue therapeutic heparin drip Continue to trend CKs every 6 hours until they start to downtrend, last CK 7,495 Excellent UOP 1 mL/kg/hr, Cr 0.60 this AM NPO prior to OR this morning ECHO yesterday normal with EF 60-70% Bilateral lower extremity SCDs Plan for return to OR today for right leg fasciotomy washout, possible closure, possible VAC Delilah Sanchez MD Vascular Surgery Fellow pager [phone] 03/14/2021 Active Hospital Problems Diagnosis ??? IVC (inferior vena cava obstruction) Resolved Hospital Problems No resolved problems to display. Active Non-Hospital Problems Diagnosis ??? Diverticular disease of colon ??? Acquired hypothyroidism ??? Acute bilateral deep vein thrombosis (DVT) of iliac veins of lower extremities ??? DVT, lower extremity, proximal, acute, bilateral ??? Gastroesophageal reflux disease without esophagitis ??? IVC thrombosis ??? TMJ dysfunction Scheduled Medications: ??? bisacodyL 10 mg Rectal Daily ??? levothyroxine 88 mcg Oral QAM ??? pantoprazole EC 20 mg Oral Daily ??? sodium chloride 0.9 % (flush) 5 mL Intravenous BID ??? acetaminophen 975 mg Oral Q6H ??? polyethylene glycoL (MIRALAX) oral powder 17 g Oral Daily ??? senna 8.6 mg Oral BID Stu Olsen RN - 03/14/2021 6:33 AM EST OUTCOME EVALUATION NOTE: OUTCOME SUMMARY: Pt is A/Ox4 and VSS on RA. No complaints of nausea, SOB, or numbness/tingling. Moderate pain reported in RLE. Pain managed with scheduled and PRN medications. Acuña has had adequate urine output throughout shift. Pt did have two small BMs this shift. BLE are JOSE wrapped, CDI. Q2 neuro vasc checks are WDL. Pulses are positive via Doppler. 2100 UFH was 0.04, PRN bolus given and rate increased to 1850 units/hr. Heparin gtt now infusing at 1750 units/hr. 0330 Pt complained of increasing of pain and tenderness in LLE, notified. PLAN MOVING FORWARD: Discharge planning Q2 neuro vasc checks Monitor I&O UFH due @ 1045 Q6 CK at 1200 INDIVIDUALIZED FALL PREVENTION INTERVENTIONS: Patient-specific fall risk factors per assessment: [current deficits]: Tethering lines, recent surgery, narcotics, weakness, mobility aid, unfamiliar environment Assistance [level of assistance required for transfers and ambulation]: 1 assist Supervision [direct monitoring required during toileting and ADLs]: Hands on Surveillance [continuous indirect monitoring]: Purposeful rounding, call hills within reach Patient-specific fall prevention interventions for sensory deficits provided, if applicable: [X] No CPG GOAL OUTCOME EVALUATION: Vijaya Oneill RN - 03/13/2021 6:20 PM EST 1515 Pt arrived to room 429 via bed from ICU. Pt placed on all appropriate monitors and alarms settings. A-line in right wrist intact with good blood pressures. DP and PT pulses 2 plus with doppler. Both lower extremities edematous. Both lower extremities with jose wrap dressing and elevated on pillows. SCD's on both lower extremities as ordered. Passing flatus but no BM since arrival to 429. Acuña patent with good amounts of urine. Taking po fluids in well. Denies any nausea. Will continue to monitor and assess. Sachi Piper MD - 03/13/2021 8:17 AM EST Vascular Surgery Progress Note Patient ID Amilcar Pate is a 60 y.o. male who presented with right leg phlegmasia Vascular Surgery Operations This Hospitalization 03/12/2021 Right femoral vein cutdown and exposure for delivery of endovascular device Ultrasound and fluoroscopic guided right IJ vein access Suprarenal IVC filter placement Endovascular mechanical thrombectomy of IVC and right common and external iliac vein IVC, right common and right external iliac vein stenting Compression thrombectomy of right lower leg Right leg 4-compartment fasciotomies Subjective Pain controlled, denies nausea, vomiting, chest pain or shortness of breath. States both legs feel improved from prior to the operation. Able to move his right toes and ankle more today than he was able to preoperatively Objective BMI: Weight: 95.5 kg (210 lb 8.6 oz) (03/13/21 0000) Intake/Output Summary (Last 24 hours) at 03/13/2021 0818 Last data filed at 03/13/2021 0758 Gross per 24 hour Intake 5569 ml Output 3540 ml Net 2028 ml Temp: [36.7 ??C (98 ??F)-37.9 ??C (100.2 ??F)] Heart Rate: [77-91] Resp: [13-24] BP: -- SpO2: [93 %-98 %] Heart Rate from SpO2: [77 bpm-91 bpm] Physical Exam General: alert, cooperative, NAD HEENT: normocephalic, atraumatic, right neck IJ access site clean and dry without hematoma Neck: trachea midline Heart: regular rate Pulmonary: non-labored breathing Abdomen: soft, non tender, non distended Neuro: no focal deficits Extremities: right thigh incision clean and dry, right leg fasciotomy sites pink with bulging muscle, doppler signal in bilateral DP/PT Labs Last 3 wbc, hgb, hct plt Recent Labs 03/13/21 0540 03/13/21 0000 03/12/21 1651 WBC 7.8 9.3 14.2* HGB 8.8* 9.3* 10.6* HCT 27.6* 28.4* 32.7* PLATELET 294 298 409* Last 3 Lytes Recent Labs 03/13/21 0540 03/13/21 0000 03/12/21 1651 NA 136 132* 138 K 3.8 3.4* 4.3 CL 105 101 107 CO2 23 23 17* BUN 10 15 15 CREATININE 0.61* 0.73* 0.78* Assessment & Plan Amilcar Pate is a 60 y.o. male 1 Day Post-Op s/p IVC and R iliac vein thrombectomy Continue therapeutic heparin drip Continue to trend CKs every 6 hours until they start to downtrend Received 1.5L fluid postop with excellent UOP 1.3 mL/kg/hr, Cr 0.61 this AM Diet as tolerated from vascular surgery standpoint Baseline ECHO when able Bilateral lower extremity SCDs Plan for return to OR tomorrow for right leg fasciotomy washout, possible closure, possible VAC Okay for q2 neurovascular checks Will discuss transfer out of ICU to stepdown with SICU team Sachi Ford Vascular Surgery Fellow pager [phone] 03/13/2021 Active Hospital Problems Diagnosis ??? IVC (inferior vena cava obstruction) Resolved Hospital Problems No resolved problems to display. Active Non-Hospital Problems Diagnosis ??? Diverticular disease of colon ??? Acquired hypothyroidism ??? Acute bilateral deep vein thrombosis (DVT) of iliac veins of lower extremities ??? DVT, lower extremity, proximal, acute, bilateral ??? Gastroesophageal reflux disease without esophagitis ??? IVC thrombosis ??? TMJ dysfunction Scheduled Medications: ??? levothyroxine 88 mcg Oral QAM ??? pantoprazole EC 20 mg Oral Daily ??? sodium chloride 0.9 % (flush) 5 mL Intravenous BID ??? acetaminophen 975 mg Oral Q6H ??? polyethylene glycoL (MIRALAX) oral powder 17 g Oral Daily ??? senna 8.6 mg Oral BID Ruben Medrano Jr., MD - 03/12/2021 8:30 PM EST Post-Op Check Note ID: Patient Name: Amilcar Pate : 1960 Amilcar Pate is a 60 y.o. male s/p Procedure(s): THROMBECTOMY, VENA CAVA, ILIAC, FEMOROPOPLITEAL VEIN BY LEG INCISION (WRVU 13.37) FASCIOTOMY, LOWER LEG, ALL COMPARTMENTS -TIFFANY (WRVU 7.82) INSERT INTRAVASC VENA CAVA FILTER, ENDOVASCR APPR, WHEN PERFORMED (WRVU 4.71). S: Patient sitting up in bed, awake and alert, feeling well without notable pain or new complaints. No chest pain or shortness of breath. Normal vitals. Strong PT/DP signals bilaterally. R groin soft without evidence of hematoma at access site. SCDs applied to both lower extremities. O: Temp: [36.7 ??C (98 ??F)-37.9 ??C (100.2 ??F)] Heart Rate: [81-91] Resp: [13-24] BP: -- SpO2: [93 %-98 %] Heart Rate from SpO2: [81 bpm-91 bpm] I/O last 3 completed shifts: In: 2492 [P.O.:60; I.V.:1932; Other:500] Out: 1230 [Urine:830; Blood:400] I/O this shift: In: 782 [P.O.:600; I.V.:182] Out: 280 [Urine:280] Last 3 wbc, hgb, hct plt Recent Labs 03/12/21 1651 03/12/21 0511 02/26/21 1825 WBC 14.2* 12.7* 9.8* HGB 10.6* 10.7* 11.5* HCT 32.7* 33.2* 34.8* PLATELET 409* 523* 397* Last 3 Lytes Recent Labs 03/12/21 1651 03/12/21 0511 02/26/21 1825 NA 138 138 137 K 4.3 3.4* 4.1 CL 107 105 99 CO2 17* 19* 27 BUN 15 17 12 CREATININE 0.78* 0.70* 0.67* Last 3 Coags Recent Labs 03/12/21 1651 PT 20.6* INR 1.8 PTT >160* Physical Exam: GEN: A&O, NAD, resting comfortably HEENT: anicteric sclerae, dressing over old R IJ site C/D/I CV: regular rate and rhythm PULM: no increased work of breathing on RA ABD: soft, non-tender, non-distended : Acuña in place draining clear yellow urine EXT: R groin access site soft without evidence of hematoma strong signals to DP/PT bilaterally SCDs applied to both lower extremities Bandage in place to RLE fasciotomy sites NEURO: grossly intact A&P: Amlicar Pate is a 60 y.o. male s/p operative intervention as above for R leg phelgmasia cerulea dolens currently in stable condition and recovering well. - Vitals: WNL - Pain: well controlled - Volume status: UOP adequate - Diet: No diet orders on file - DVT prophylaxis: heparin gtt, SCDs - Labs: none - Imaging: none - Dispo: ICU status - Continue post operative plan per primary team Ruben Medrano Jr, MD General Surgery PGY-1 documented in this encounter H&P Notes Kamron Charles MD - 03/12/2021 1:22 PM EST Critical Care Admission History and Physical Patient Name: Amilcar Pate MR: [id number] : [id number] CC: 60 y.o. Male HISTORY OF PRESENT ILLNESS: Amilcar Pate is a 60 y.o. male with PMH hypothyroidism and GERD who presented to the [facility] ED in transfer from [facility] on 03/12 early AM. The patient previously had a COVID infection on 02/26 and developed bilateral iliofemoral DVT on 02/21 for which he was started on Eliquis. His Eliquis was held for an EGD with biopsy on 03/11 at [facility]. This morning, he presented to [facility] with a mottled, cool RLE andwas transferred to [facility] on a heparin gtt. On arrival to [facility], he was noted to have a five-hour history of acute onset RLE pain, numbness, and paresthesia with blue discoloration from his hip to the toes. His last dose of Eliquis was on 03/08. Hewas able to wiggle his toes and dorsiflex and plantarflex his foot although limited by pain. CT venogram demonstrated occlusive thrombus throughout the entire infrarenal IVC, bilateral CIV, IIV, and EIV as well as thrombus in the right CFV. He is now s/p right SFA cutdown, stenting of IVC and right CIV, right lower extremity fasciotomies, and IVC filter deployment via 12-Fr right IJV access. Intraoperatively, he received 1500 cc IV fluids and 500 cc albumin. EBL 400 cc. His antibiotics werere-dosed and he received 4 g Ancef total. UOP 750 cc intraoperatively. PAST MEDICAL HISTORY: GERD and hypothyroidism. Past surgical history including inguinal and umbilical hernia repair. PAST SURGICAL HISTORY: Past Surgical History: Procedure Laterality Date ??? PRO COLONOSCOPY, BIOPSY N/A 05/07/2020 COLONOSCOPY FLEXIBLE, WITH BX (WRVU 3.66) performed by Rc Carrasquillo MD at [facility] ??? PRO COLONOSCOPY, DIAGNOSTIC N/A 03/11/2021 COLONOSCOPY, DIAGNOSTIC performed by Titi Stroud MD at [facility] ??? PRO COLONOSCOPY, FLEX, W/DIR SUBMUC INJECT N/A 05/07/2020 COLONOSCOPY WITH DIRECTED SUBMUCOSAL INJ (WRVU 3.66) performed by Rc Carrasquillo MD at [facility] ??? PRO COLONOSCOPY, REMV LESN, SNARE N/A 12/11/2016 COLONOSCOPY, POLYPECTOMY, REMOVAL LESION BY SNARE (WRVU 4.67) performed by Jewels Wilkerson MD at [facility] ??? PRO COLONOSCOPY, REMV LESN, SNARE N/A 05/07/2020 COLONOSCOPY, POLYPECTOMY, REMOVAL LESION BY SNARE (WRVU 4.67) performed by Rc Carrasquillo MD at [facility] ??? PRO HEMORRHOIDECTOMY, INT/EXT, COMPLX N/A 10/28/2016 HEMORRHOIDECTOMY, INTERNAL & EXTERNAL, COMPLEX (WRVU 6.73) performed by Matt Sullivan MDat [facility] ??? PRO UPPER GI ENDOSCOPY, BIOPSY N/A 03/11/2021 EGD WITH BIOPSY (WRVU 2.49) performed by Titi Stroud MD at [facility] ??? PRO UPPER GI ENDOSCOPY, DIAGNOSTIC N/A 05/07/2020 EGD, UPPER GI ENDOSCOPY performed by Rc Carrasquillo MD at [facility] ALLERGIES: No Known Allergies MEDICATIONS: Medications Prior to Admission Medication Sig Dispense Refill Last Dose ??? apixaban (Eliquis) 5 mg Tablet Take 5 mg by mouth 2 times daily. ??? ibuprofen (ADVIL;MOTRIN) 200 mg Tablet Take 200 mg by mouth every 6 hours as needed for Pain. ??? oxyCODONE (ROXICODONE) 5 mg Tablet Take 1 tablet by mouth every 4 hours as needed for Pain. (Patient not taking: Reported on 11/24/2016) 30 tablet 0 ??? levothyroxine (SYNTHROID) 88 mcg Tablet Take 88 mcg by mouth daily. ??? omeprazole (PRILOSEC) 20 mg Capsule, Delayed Release(E.C.) Take 20 mg by mouth daily. FAMILY HISTORY: History reviewed. No pertinent family history. SOCIAL HISTORY: Social History Tobacco Use ??? Smoking status: Former Smoker ??? Smokeless tobacco: Never Used Substance Use Topics ??? Alcohol use: Not Currently Comment: about once a month ??? Drug use: No REVIEW OF SYSTEMS: Pertinent items are noted in HPI. PHYSICAL EXAM: Last Value Range last 24 hrs Temperature Temp: 37.2 ??C (98.9 ??F) Temp: [37.1 ??C (98.8 ??F)-37.2 ??C (98.9 ??F)] Heart Rate Heart Rate: 80 Heart Rate: [78-85] Blood Pressure BP: 118/75 BP: (118-145)/(75-99) Respiratory Resp: 14 Resp: [14-21] SpO2 SpO2: 94 % SpO2: [92 %-96 %] Art BP BP (Arterial Line): -- GENERAL: NAD, AAOx4, pleasant, in intermittent pain with palpation of RLE HEAD: NC/AT. Right neck dressing c/d/i. Pupils: equal, round, reactive to light, no periorbital ecchymoses; LUNG: equal, clear breath sounds bilaterally and no crepitus CARDIAC: Regular rate and rhythm or without murmur or extra heart sounds ABDOMEN/GI: Soft, non-tender, non-distended. SKIN: warm, dry EXTREMITY: RLE: Warm and well perfused. 1+/2 sensation in right toes. 2/2 sensation in right forefoot, calf, and thigh. Able to move toes, plantarflex and dorsiflex foot, and with 5/5 strength in calf and thigh. LLE: Warm and well perfused. 2/2 sensation and 5/5 strength to testing. No edema or tissue loss. VASCULAR: Doppler DP and PT signals bilaterally. LINES/DRAINS: Right thigh incision with LIZETTE drain with serosanguinous drainage. LABORATORY: Recent Labs 03/12/21 0511 WBC 12.7* HGB 10.7* HCT 33.2* PLATELET 523* Recent Labs 03/12/21 0511 NA 138 K 3.4* CL 105 CO2 19* BUN 17 CREATININE 0.70* GLUCOSE 135 CALCIUM 7.8* Recent Labs 03/12/21 0511 AST 14 ALT 13 ALKPHOS 80 BILITOT 0.4 BILIDIR 0.1 No results found for: INR, PT, PTT ABG (Arterial Blood Gas) Lab Results Component Value Date pH Art 7.40 03/12/2021 pO2 Art 248 (H) 03/12/2021 pCO2 Art 38 03/12/2021 MICROBIOLOGY: None RADIOLOGY: CT Venogram Abdomen and Pelvis 03/12/[address] angiographic evidence of pulmonary [...] time of follow-up CT of the chest. Duplex for DVT, Leg, Unilat 03/12/2021 RIGHT: Extensive acute deep vein thrombosis throughout the right lower extremity. Acute occlusive superficial vein thrombosis in the great saphenous vein. Assessment/Plan: Amilcar Pate is 60 y.o. male with PMH hypothyroidism and GERD who presented to the [facility] ED in transfer from [facility] with five hours of acute RLE pain with numbness and paresthesias,as well as weakness to right foot dorsiflexion and plantarflexion consistent with phlegmasia ceruleadolens. He was taken to the operating room as an A case with Vascular Surgery and underwent right SFA cutdown, stenting of IVC and right CIV, right lower extremity fasciotomies, and IVC filter deployment via 12-Fr right IJV access. He has a LIZETTE drain in his right thigh incision. He was admitted to the ICU for further management and q1h neurovascular checks. NEURO: - q1h neurovascular checks - Pain control: Acetaminophen 975 mg q6h, oxycodone 5-10 mg q4h PRN, dilaudid IV 0.2-0.6 q4h PRN CV: - HDS, monitor vitals - MAP >65 / SBP goal <160 PULM: - Extubated, room air to NC O2 - HOB greater than 30?? - IS/cough/deep breathe FEN/GI: - May have a diet after STAT labs - Will require hydration given significant intraoperative contrast load - Q6H CBC, BMP, Mg, Phos, CK, ABG with lactate per Vascular Surgery - PO pantoprazole daily (home medication) - RBOs RENAL: - Acuña. Strict I/O MSK: - PT/OT ENDO: - Blood glucose goal <180. No history of diabetes - Levothyroxine (home medication) ID: TREVIN HEME: - SCDs to BLE; therapeutic heparin gtt - Holding home Eliquis TLD: Patient Lines/Drains/Airways Status Active Tubes/Lines/Drains Name Placement date Placement time Site Days Peripheral IV Line - Single Lumen 03/12/21 median cubital vein (antecubital fossa), right 18 gauge 03/12/21 no documentation less than 1 Peripheral IV Line - Single Lumen 03/12/21 median cubital vein (antecubital fossa), left 18 gauge 03/12/21 no documentation less than 1 Peripheral IV Line - Single Lumen 03/12/21 1150 cephalic vein (lateral side of arm), left 14 gauge 03/12/21 1150 less than 1 Drain/Device Site 03/12/21 1550 Right anterior thigh collapsible closed device 03/12/21 1550 less than 1 Urethral Catheter 03/12/21 1123 14 03/12/21 1123 less than 1 Arterial Line 03/12/21 1140 radial artery, right 20 gauge 03/12/21 1140 less than 1 DISPO: admit to ICU, Critical Care Red 2 CODE STATUS: Attempt Cardiopulmonary Resuscitation - Inpatient PRIMARY TEAM: Vascular Surgery Kamron Charles MD 03/12/2021 Associated attestation - Oleg Torrez MD - 03/14/2021 11:57 PM EST I have seen and examined the patent in conjunction with Dr. Charles. I directly contributed to the formulation of the above assessment and plan. I have read the above note and agree with the assessment and plan as written. IS PATIENT CRITICALLY ILL ? Is there a high potential of sudden, clinically significant, or life threatening deterioration? Yes Is there a need for direct personal assessment and management to treat/prevent multiple vital organfailure/deterioration? Yes PATIENT IS CRITICALLY ILL WITH THESE DIAGNOSES BEING MANAGED BY [facility] TEAM: Frequent neurovascular exams postoperatively following RLE stenting and fasciotomy procedure. TIME spent on the unit excluding procedures: 35 minutes Oleg Torrez MD PhD #[id number] Madhuri Charles MD - 03/12/2021 9:37 AM EST [facility] Department of Surgery Inpatient Consult Note Consultation Requested by: Rosemary Wiley MD HPI: We are seeing Amilcar Pate today at the request of Dr. Rosemary Wilye MD for evaluation and advice about RLE ischemia. Patient is a 60 year old male with a PMH notable for hypothyroidism and GERD who presented with a 5 hour history of acute onset RLE pain, numbness and tingling associated with blue discoloration from hip to toes. It had been progressively worsening which prompted his visit to the ED. He was recently admitted for a DVT on 02/21 and was discharged on Eliquis. He took it as prescribed however stopped iton Thursday for a colonscopy on Thursday. Colonoscopy was uneventful and patient went home in his usual state of health until his symptom onset at 1 AM earlier this morning. He denied any additional symptoms such as chest pains, shortness of breath, fevers, chills, nausea or emesis. He does report dyspneaon exertion (a few feet to the bathroom). PMH: hypothyroidism and GERD PSH: Inguinal and umbilical hernia repair Allergies: NKDA Medications: Omeprazole and synthroid CODE: FULL Functional statue: Mets < 4 PMH: History reviewed. No pertinent past medical history. PSH: Past Surgical History: Procedure Laterality Date ??? PRO COLONOSCOPY, BIOPSY N/A 05/07/2020 COLONOSCOPY FLEXIBLE, WITH BX (WRVU 3.66) performed by Rc Carrasquillo MD at [facility] ??? PRO COLONOSCOPY, DIAGNOSTIC N/A 03/11/2021 COLONOSCOPY, DIAGNOSTIC performed by Titi Stroud MD at [facility] ??? PRO COLONOSCOPY, FLEX, W/DIR SUBMUC INJECT N/A 05/07/2020 COLONOSCOPY WITH DIRECTED SUBMUCOSAL INJ (WRVU 3.66) performed by Rc Carrasquillo MD at [facility] ??? PRO COLONOSCOPY, REMV LESN, SNARE N/A 12/11/2016 COLONOSCOPY, POLYPECTOMY, REMOVAL LESION BY SNARE (WRVU 4.67) performed by Jewels Wilkerson MD at [facility] ??? PRO COLONOSCOPY, REMV LESN, SNARE N/A 05/07/2020 COLONOSCOPY, POLYPECTOMY, REMOVAL LESION BY SNARE (WRVU 4.67) performed by Rc Carrasquillo MD at [facility] ??? PRO HEMORRHOIDECTOMY, INT/EXT, COMPLX N/A 10/28/2016 HEMORRHOIDECTOMY, INTERNAL & EXTERNAL, COMPLEX (WRVU 6.73) performed by Matt Sullivan MDat [facility] ??? PRO UPPER GI ENDOSCOPY, BIOPSY N/A 03/11/2021 EGD WITH BIOPSY (WRVU 2.49) performed by Titi Stroud MD at [facility] ??? PRO UPPER GI ENDOSCOPY, DIAGNOSTIC N/A 05/07/2020 EGD, UPPER GI ENDOSCOPY performed by Rc Carrasquillo MD at [facility] HOME MEDICATIONS: Current Facility-Administered Medications on File Prior to Encounter Medication Dose Route Frequency Provider Last Rate Last Admin ??? [DISCONTINUED] lactated ringers infusion 100 mL/hr Intravenous Continuous Titi Stroud MD 100 mL/hr at 03/11/21 1520 100 mL/hr at 03/11/21 1520 ??? [DISCONTINUED] benzocaine (Hurricane One) 20% spray (restricted to mikel- procedural use) Once PRNTiti Stroud MD 1 spray at 03/11/21 1638 ??? [DISCONTINUED] fentaNYL (pf) (50 mcg/mL) multi-dose injection Once PRN Titi Stroud MD 50 mcg at 03/11/21 165 ??? [DISCONTINUED] midazolam (pf) (Versed) (1 mg/mL) multi-dose injection Once PRN Titi Stroud MD 1 mg at 03/11/211658 ??? [DISCONTINUED] diphenhydrAMINE (Benadryl) (50 mg/mL) injection Once PRN Titi Stroud MD 25mg at 03/11/211658 Current Outpatient Medications on File Prior to Encounter Medication Sig Dispense Refill ??? apixaban (Eliquis) 5 mg Tablet Take 5 mg by mouth 2 times daily. ??? ibuprofen (ADVIL;MOTRIN) 200 mg Tablet Take 200 mg by mouth every 6 hours as needed for Pain. ??? oxyCODONE (ROXICODONE) 5 mg Tablet Take 1 tablet by mouth every 4 hours as needed for Pain. (Patient not taking: Reported on 11/24/2016) 30 tablet 0 ??? levothyroxine (SYNTHROID) 88 mcg Tablet Take 88 mcg by mouth daily. ??? omeprazole (PRILOSEC) 20 mg Capsule, Delayed Release(E.C.) Take 20 mg by mouth daily. ALLERGIES: No Known Allergies FAMILY HISTORY: non-contributory in any family member SOCIAL HISTORY: Social History Socioeconomic History ??? Marital status: Spouse name: Not on file ??? Number of children: Not on file ??? Years of education: Not on file ??? Highest education level: Not on file Occupational History ??? Not on file Tobacco Use ??? Smoking status: Former Smoker ??? Smokeless tobacco: Never Used Substance and Sexual Activity ??? Alcohol use: [...] on file Housing Stability: Not on file ROS: As stated above, otherwise 10 systems negative Pertinent items are noted in HPI. PHYSICAL EXAM Temp: [37.1 ??C (98.8 ??F)] Heart Rate: [78-85] Resp: [16-20] BP: (118-145)/(75-99) SpO2: [92 %-96 %] Heart Rate from SpO2: [78 bpm-86 bpm] General: In pain. Pulmonary: Non-labored breathing on RA. Abdominal: Soft, non-tender, non-distended, with no peritoneal signs. Extremities: RLE: cyanotic toes, faint redness around entire leg. Slightly cool. Palpable PT pulse. Can wiggle toes and dorsi/plantar flex although somewhat limited by pain, soft compartments, swollen LLE: Normal appearance. No swelling. Palpable pedal pulse. Warm, well perfused. Neurological: AAO x3. LABORATORY DATA Recent Labs 03/12/21 0511 WBC 12.7* HGB 10.7* PLATELET 523* NA 138 K 3.4* CL 105 CO2 19* BUN 17 CREATININE 0.70* GLUCOSE 135 LFT's Lab Results Component Value Date Alk Phos 80 03/12/2021 AST 14 03/12/2021 Albumin 3.4 03/12/2021 Bili, Direct 0.1 03/12/2021 Total Bilirubin 0.4 03/12/2021 ALT 13 03/12/2021 Total Protein 6.4 03/12/2021 Coags No results found for: INR, PT, PTT MICRO: None pending IMAGING: None obtained this admission. IMPRESSION: Patient is a 60 year old male with a PMH notable for hypothyroidism and GERD who presented with a 5 hour history of acute onset RLE pain, numbness and tingling associated with cyanosis of the toes, Patient has a known extensive ilio-caval thrombosis from February 21 that has probably acutely worsened with his withholding of anticoagulation for several days. RECOMMENDATION: -CTPE, CT Venogram, BLE DVT duplex -Heparin gtt -Leg compression and elevation -NPO until studies/final plan completed Thank you for this consult. If you have any questions regarding this consult, please page [phone] if you have any further questions. [x] Consult service to continue to follow [] Consult service to sign off Associated attestation - Rosemary Wiley MD - 03/12/2021 10:57 AM EST Pt seen and examined in the ER with vascular resident and images were reviewed. He has progression of the RLE thrombus with evidence of phlegmasia on exam. We will proceed with urgent thrombectomy and fasciotomy. Madhuri Charles MD - 03/12/2021 5:27 AM EST [facility] Department of Surgery Inpatient Consult Note Consultation Requested by: Reinaldo Merino MD HPI: We are seeing Amilcar Pate today at the request of Dr. Reinaldo Merino MD for evaluationand advice about RLE ischemia. Patient is a 60 year old male with a PMH notable for hypothyroidism and GERD who presented with a 5 hour history of acute onset RLE pain, numbness and tingling associated with blue discoloration from hip to toes. It had been progressively worsening which prompted his visit to the ED. He was recently admitted for a DVT on 02/21 and was discharged on Eliquis. He took it as prescribed however stopped iton Thursday for a colonscopy on Thursday. Colonoscopy was uneventful and patient went home in his usual state of health until his symptom onset at 1 AM earlier this morning. He denied any additional symptoms such as chest pains, shortness of breath, fevers, chills, nausea or emesis. He does report dyspneaon exertion (a few feet to the bathroom). PMH: hypothyroidism and GERD PSH: Inguinal and umbilical hernia repair Allergies: NKDA Medications: Omeprazole and synthroid CODE: FULL Functional statue: Mets < 4 PMH: History reviewed. No pertinent past medical history. PSH: Past Surgical History: Procedure Laterality Date ??? PRO COLONOSCOPY, BIOPSY N/A 05/07/2020 COLONOSCOPY FLEXIBLE, WITH BX (WRVU 3.66) performed by Rc Carrasquillo MD at [facility] ??? PRO COLONOSCOPY, DIAGNOSTIC N/A 03/11/2021 COLONOSCOPY, DIAGNOSTIC performed by Titi Stroud MD at [facility] ??? PRO COLONOSCOPY, FLEX, W/DIR SUBMUC INJECT N/A 05/07/2020 COLONOSCOPY WITH DIRECTED SUBMUCOSAL INJ (WRVU 3.66) performed by Rc Carrasquillo MD at [facility] ??? PRO COLONOSCOPY, REMV LESN, SNARE N/A 12/11/2016 COLONOSCOPY, POLYPECTOMY, REMOVAL LESION BY SNARE (WRVU 4.67) performed by Jewels Wilkerson MD at [facility] ??? PRO COLONOSCOPY, REMV LESN, SNARE N/A 05/07/2020 COLONOSCOPY, POLYPECTOMY, REMOVAL LESION BY SNARE (WRVU 4.67) performed by Rc Carrasquillo MD at [facility] ??? PRO HEMORRHOIDECTOMY, INT/EXT, COMPLX N/A 10/28/2016 HEMORRHOIDECTOMY, INTERNAL & EXTERNAL, COMPLEX (WRVU 6.73) performed by Matt Sullivan MDat [facility] ??? PRO UPPER GI ENDOSCOPY, BIOPSY N/A 03/11/2021 EGD WITH BIOPSY (WRVU 2.49) performed by Titi Stroud MD at [facility] ??? PRO UPPER GI ENDOSCOPY, DIAGNOSTIC N/A 05/07/2020 EGD, UPPER GI ENDOSCOPY performed by Rc Carrasquillo MD at [facility] HOME MEDICATIONS: Current Facility-Administered Medications on File Prior to Encounter Medication Dose Route Frequency Provider Last Rate Last Admin ??? [DISCONTINUED] lactated ringers infusion 100 mL/hr Intravenous Continuous Titi Stroud MD 100 mL/hr at 03/11/21 1520 100 mL/hr at 03/11/21 1520 ??? [DISCONTINUED] benzocaine (Hurricane One) 20% spray (restricted to mikel- procedural use) Once PRNTiti Stroud MD 1 spray at 03/11/21 1638 ??? [DISCONTINUED] fentaNYL (pf) (50 mcg/mL) multi-dose injection Once PRN Titi Stroud MD 50 mcg at 03/11/211658 ??? [DISCONTINUED] midazolam (pf) (Versed) (1 mg/mL) multi-dose injection Once PRN Titi Stroud MD 1 mg at 03/11/211658 ??? [DISCONTINUED] diphenhydrAMINE (Benadryl) (50 mg/mL) injection Once PRN Titi Stroud MD 25mg at 03/11/211658 Current Outpatient Medications on File Prior to Encounter Medication Sig Dispense Refill ??? apixaban (Eliquis) 5 mg Tablet Take 5 mg by mouth 2 times daily. ??? ibuprofen (ADVIL;MOTRIN) 200 mg Tablet Take 200 mg by mouth every 6 hours as needed for Pain. ??? oxyCODONE (ROXICODONE) 5 mg Tablet Take 1 tablet by mouth every 4 hours as needed for Pain. (Patient not taking: Reported on 11/24/2016) 30 tablet 0 ??? levothyroxine (SYNTHROID) 88 mcg Tablet Take 88 mcg by mouth daily. ??? omeprazole (PRILOSEC) 20 mg Capsule, Delayed Release(E.C.) Take 20 mg by mouth daily. ALLERGIES: No Known Allergies FAMILY HISTORY: non-contributory in any family member SOCIAL HISTORY: Social History Socioeconomic History ??? Marital status: Spouse name: Not on file ??? Number of children: Not on file ??? Years of education: Not on file ??? Highest education level: Not on file Occupational History ??? Not on file Tobacco Use ??? Smoking status: Former Smoker ??? Smokeless tobacco: Never Used Substance and Sexual Activity ??? Alcohol use: [...] on file Housing Stability: Not on file ROS: As stated above, otherwise 10 systems negative Pertinent items are noted in HPI. PHYSICAL EXAM Temp: [37.1 ??C (98.8 ??F)] Heart Rate: [78-85] Resp: [16-20] BP: (118-145)/(75-99) SpO2: [92 %-96 %] Heart Rate from SpO2: [78 bpm-86 bpm] General: In pain. Pulmonary: Non-labored breathing on RA. Abdominal: Soft, non-tender, non-distended, with no peritoneal signs. Extremities: RLE: cyanotic toes, faint redness around entire leg. Slightly cool. Palpable PT pulse. Can wiggle toes and dorsi/plantar flex although somewhat limited by pain LLE: Normal appearance. No swelling. Palpable pedal pulse. Warm, well perfused. Neurological: AAO x3. LABORATORY DATA Recent Labs 03/12/21 0511 WBC 12.7* HGB 10.7* PLATELET 523* NA 138 K 3.4* CL 105 CO2 19* BUN 17 CREATININE 0.70* GLUCOSE 135 LFT's Lab Results Component Value Date Alk Phos 80 03/12/2021 AST 14 03/12/2021 Albumin 3.4 03/12/2021 Bili, Direct 0.1 03/12/2021 Total Bilirubin 0.4 03/12/2021 ALT 13 03/12/2021 Total Protein 6.4 03/12/2021 Coags No results found for: INR, PT, PTT MICRO: None pending IMAGING: None obtained this admission. IMPRESSION: Patient is a 60 year old male with a PMH notable for hypothyroidism and GERD who presented with a 5 hour history of acute onset RLE pain, numbness and tingling associated with cyanosis of the toes, Patient has a known extensive ilio-caval thrombosis from February 21 that has probably acutely worsened with his withholding of anticoagulation for several days. RECOMMENDATION: -CTPE, CT Venogram, BLE DVT duplex -Heparin gtt -Leg compression and elevation -NPO until studies/final plan completed Thank you for this consult. If you have any questions regarding this consult, please page [phone] if you have any further questions. [x] Consult service to continue to follow [] Consult service to sign off Associated attestation - Rosemary Wiley MD - 03/12/2021 10:56 AM EST Pt seen and examined in the ER with vascular resident and images were reviewed. He has progression of the RLE thrombus with evidence of phlegmasia on exam. We will proceed with urgent thrombectomy and fasciotomy. documented in this encounter Procedure Notes John Guthrie MD - 03/15/2021 1:43 PM EST Vascular Surgery Interventional Procedure Note Date of procedure: 03/15/21 Pre-Procedure Diagnosis: LLE iliofemoral DVT Post-Procedure Diagnosis: LLE iliofemoral DVT Procedure: - Left common femoral vein access with fluoroscopic and ultrasound guidance - LLE venogram - Selective catheterization of IVC - Angiojet pharmacomechanical thrombectomy with powerpulse of left common and external iliac veins - Left common iliac vein stent placement (Express [id number], post-dilated to 12mm) - Left common and external iliac vein stent placement (Wallstent [id number]) - US guided right internal jugular vein access - IVC venogram - Retrieval of IVC filter - Perclose closure of left common femoral vein, manual pressure closure of right IJ vein Surgeon(s): MD Marlene Liu MD Intra-procedural Medications: Versed dose: 6 mg Fentanyl dose: 5000 mcg Local anesthetic: 16 cc 1% lidocaine Heparin: 16,000 Units Protamine: No Alteplase: 10 mg Antibiotics: ancef 2g Fluoro Time: 33.1 min min Contrast: 200 mL Sheath Size: 10 Fr sheath in L CFV; 13 Fr sheath in R IJ vein Indications for the procedure: Mr Pate is a 60M who presented with 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 He is s/p suprarenal IVC filter placement and mechanical thrombectomy of IVC and R iliac veins. Plan for LLE venogram and interventions as indicated Findings: - LLE venogram: extensive DVT burden in common and external iliac veins - Intervention: Angiojet pharmacomechanical thrombectomy with powerpulse of left common and externaliliac veins, Left common iliac vein stent placement (Express [id number], post-dilated to 12mm), Left common and external iliac vein stent placement (Wallstent [id number]); - IVC venogram: suprarenal IVC filter in place without clot burden within filter - Intervention: IVC filter removal Procedure in detail: The patient was properly identified in the pre-operative holding area. After discussions of the risks and benefits, operative consent was obtained. The patient was brought to the angiography suite andplaced on the angio table. The patient was prepped and draped in the usual sterile fashion. A time-out was performed by the attending surgeon confirming the patient, the intended procedure, the side ofintervention and equipment needed. Split doses of fentanyl and versed were administered for conscious sedation by the Interventional Radiology nurse during continuous monitoring of pulse, blood pressure and oxygen saturation. After injection of local anesthetic, percutaneous access was obtained via the left common femoral vein under fluoroscopic and ultrasound guidance using a micro puncture technique. A cope wire was inserted and upsized to a 5 Georgian sheath over a J-wire. A LLE venogram was obtained with the above findings. A stiff glidewire was advanced to the proximal common iliac vein. A dipti catheter and 018 Victory wire 30g was used to advance through the struts of the existing wallstent and advance into the IVC. A leonel 6x60mm balloon was used to dilate the struts of the wallstent, however we were still unable to advance a catheter over the wire into the IVC. A V14 wire was then inserted as a yasmine wire and advanced into the IVC. With this extra support, sheath exchange was performedfor a 7Fr 45cm destination sheath, which was advanced to the proximal common iliac vein. A [place] 5x40mm balloon was used to dilate the struts, and when the balloon was deflated the sheath was advanced into the IVC. An Express [id number] balloon expandable stent was deployed in the proximal left common iliac vein, extending through the struts of the right iliac wallstent into the IVC. This was post-dilated to 12mm. Next, the sheath was upsized to a 9Fr sheath. Angiojet pharmacomechanical thrombectomy with powerpulse (10mg tPA) was performed of the left common and external iliac veins. We then upsizedthe sheath to a 10Fr sheath. A [id number] wallstent was deployed in the left common and external iliac veins. A completion venogram was obtained with patent iliac vein stents and improved venous return. There was some persistent sluggish flow noted. We then turned our attention to the right neck. Percutaneous access was obtained in the right internal jugular vein via micropuncture technique under ultrasound and flouroscopic guidance after infiltration with local anesthetic. This was then up-sized to a 10 cm 5F sheath over a J-wire. The wire was advanced into the IVC beyond the IVC filter. A 5F omni-flush catheter was advanced into the IVC over the wire. Venography was performed with the above findings. The [employer] IVC filter retrieval systemwas opened and the 11F 60cm co-axial sheath was advanced to just proximal to the IVC filter over theJ-wire under fluoroscopic guidance. The snare was then used to capture the IVC filter. The snare and catheter were cinched onto the IVC filter and the sheath was advanced over the IVC filter under fluoroscopic guidance ensuring the legs of the filter withdrew into the sheath. Once entirely within the sheath, the inner sheath was withdrawn through the 11F outer sheath. The sheath was removed and manual pressure was held over the puncture site for 10 minutes until hemostasis was satisfactory. In the left groin, a perclose proglide was used for venotomy closure. The sheath was removed and manual pressure was then held for 10 minutes until adequate hemostasis was obtained. The wound was dressed with a sterile gauze and tegaderm. The patient was taken to the recovery room having suffered no apparent untoward event. Dr. Rodríguez was present for the entire procedure. Plan: -continue therapeutic anticoagulation -JOSE wrap and elevate bilateral lower extremities John Guthrie MD 03/16/2021 11:43 PM Associated attestation - Marlene Rodríguez MD - 03/17/2021 8:48 AM EST Attending Attestation I was the attending physician supervising the resident/fellow in the above care and I was present with the resident/fellow for the entire procedure. I was present during the intraservice time as documented by the sedation RN. documented in this encounter Nursing Notes Mary Dorman RN - 03/14/2021 9:05 AM EST Re-wrapped left leg in OR with kerlix and jose bandages documented in this encounter ED Notes Camacho Sevilla MD - 03/20/2021 2:30 PM EST ED Attending Note HPI: Amilcar Pate is a 60 y.o. male who presents to the Emergency Department w/ hx of hypothyroidism and GERD presenting from OSH for RLE pain, numbness/tingling. Patient reporting blue discoloration from hip to toes, progressively worsening pain. Recent admission w/ DVT on 02/21, discharged on eliquis. Stopped eliquis for recent colonoscopy. Patient with pain and symptoms starting around 1 am. No chest pain, fevers, headache, sob. Patient transfer for vascular. History reviewed. No pertinent past medical history. Past Surgical History: Procedure Laterality Date ??? PRO COLONOSCOPY, BIOPSY N/A 05/07/2020 COLONOSCOPY FLEXIBLE, WITH BX (WRVU 3.66) performed by Rc Carrasquillo MD at [facility] ??? PRO COLONOSCOPY, DIAGNOSTIC N/A 03/11/2021 COLONOSCOPY, DIAGNOSTIC performed by Titi Stroud MD at [facility] ??? PRO COLONOSCOPY, FLEX, W/DIR SUBMUC INJECT N/A 05/07/2020 COLONOSCOPY WITH DIRECTED SUBMUCOSAL INJ (WRVU 3.66) performed by Rc Carrasquillo MD at [facility] ??? PRO COLONOSCOPY, REMV LESN, SNARE N/A 12/11/2016 COLONOSCOPY, POLYPECTOMY, REMOVAL LESION BY SNARE (WRVU 4.67) performed by Jewels Wilkerson MD at [facility] ??? PRO COLONOSCOPY, REMV LESN, SNARE N/A 05/07/2020 COLONOSCOPY, POLYPECTOMY, REMOVAL LESION BY SNARE (WRVU 4.67) performed by Rc Carrasquillo MD at [facility] ? ? PRO DEBRIDEMENT MUSCLE AND FASCIA 20 SQ CM/< Right 03/14/2021 DEBRIDEMENT SKIN, SUBCU, MUSCLE, LOWER EXTREMITY (WRVU 2.7) performed by Deonte De Los Santos MD at [facility] MA[facility] OR ? ? PRO DEBRIDEMENT SUBCUTANEOUS TISSUE 20 SQCM/< Right 03/18/2021 DEBRIDEMENT SKIN AND SUBCU, LOWER EXTREMITY (WRVU 1.01) performed by Lukasz Patterson MD at [facility] OR ??? PRO DECOMPRESS ANT/LAT+POST LEG CMPART Right 03/12/2021 FASCIOTOMY, LOWER LEG, ALL COMPARTMENTS -TIFFANY (WRVU 7.82) [facility] ??? PRO HEMORRHOIDECTOMY, INT/EXT, COMPLX N/A 10/28/2016 HEMORRHOIDECTOMY, INTERNAL & EXTERNAL, COMPLEX (WRVU 6.73) performed by Matt Sullivan MDat [facility] OSC ? ? PRO INSERT VENA CAVA FILTER W/WO VASCULAR ACCESS AND RAD S&I N/A 03/12/2021 INSERT INTRAVASC VENA CAVA FILTER, ENDOVASCR APPR, WHEN PERFORMED (WRVU 4.71) performed by Marlene Rodríguez MD at [facility] ??? PRO REMV VEIN CLOT CAVA-ILIAC, LEG INCIS Right 03/12/2021 THROMBECTOMY, VENA CAVA, ILIAC, FEMOROPOPLITEAL VEIN BY LEG INCISION (WRVU 13.37) performed by Marlene Rodríguez MD at [facility] ??? PRO UPPER GI ENDOSCOPY, BIOPSY N/A 03/11/2021 EGD WITH BIOPSY (WRVU 2.49) performed by Titi Stroud MD at [facility] ??? PRO UPPER GI ENDOSCOPY, DIAGNOSTIC N/A 05/07/2020 EGD, UPPER GI ENDOSCOPY performed by Rc Carrasquillo MD at [facility] No Known Allergies Social History Socioeconomic History ??? Marital status: Spouse name: Not on file ??? Number of children: Not on file ??? Years of education: Not on file ??? Highest education level: Not on file Occupational History ??? Not on file Tobacco Use ??? Smoking status: Former Smoker ??? Smokeless tobacco: Never Used Substance and Sexual Activity ??? Alcohol use: [...] on file Housing Stability: Not on file Review of Systems Pertinent positives and negatives are included in the HPI, otherwise at least ten systems were reviewed and negative. Past Medical and Surgical Histories, Social History, Medications, Allergies were reviewed in the chart. Vitals: ED Triage Vitals BP: (!) 145/99 [03/12/21458] Heart Rate: 81 [03/12/21458] Resp: 19 [03/12/21458] Temp: 37.1 ??C (98.8 ??F) [03/12/21599] Temp src: Oral [03/12/21599] SpO2: 95 % [03/12/21458] O2 Device: RA [03/12/21458] O2 Flow Rate (L/min): 6 L/min [03/14/21929] Physical Exam General: well appearing, in pain, non toxic Head: atraumatic Neck: trachea midline Cardiac: RRR Respiratory: normal effort, clear to auscultation bilaterally without wheezes rales or rhonchi MSK: RLE: cyanotic toes, redness and swelling to the leg extending proximal to knee,+ PT pulse. Painwith ankle/foot movements. Soft compartments. LLE: normal appearance, + PT pulses Neuro: alert and oriented, normal speech, moving all extremities. Psych: appropriate mood ED Course: XR Chest One View Final Result No acute cardiopulmonary process. Thank you for letting us participate in the care of this patient. If you are a health care provider and have any questions regarding this report, please contact the number below. For patients who have questions please contact the health director long term care that requested your imaging first. Electronically signed by: Terri Butcher MD, [facility] ([phone]), at 03/16/2021 10:29 PM VS Venogram Vascular Surgery Final Result XR Chest One View Final Result * Low lung volumes. * Right mid and lower lung hazy airspace opacities, likely atelectasis. Preliminary report signed by: Rogers Flower at 03/15/2021 1:20 AM I have personally reviewed the image(s) and the resident's interpretation and agree with the findings, Nancy Casillas MD at 03/15/2021 2:01 AM Thank you for letting us participate in the care of this patient. If you are a health care provider and have any questions regarding this report, please contact the number below. For patients who have questions please contact the health director long term care that requested your imaging first. Electronically signed by: Nancy Casillas MD, [facility] ([phone]), at 03/15/2021 2:[address] Venogram Abdomen & Pelvis Final Result 1. Interval recanalization with stent graft placement through the IVC and right common and external iliac veins. 2. Interval placement of suprarenal IVC filter. 3. Residual retroperitoneal, pelvic and body wall edema. 4. New edema through subcutaneous tissues and muscular tissues of the left pelvis and proximal thigh. 5. Persistent thrombus possibly with mixed hematoma expanding the occluded left common, external iliac, common femoral and visualized segments of left superficial femoral vein. Thank you for letting us participate in the care of this patient. If you are a health care provider and have any questions regarding this report, please contact the number below. For patients who have questions please contact the health director long term care that requested your imaging first. Electronically signed by: Teresa Sweet MD, [facility] ([phone]), at 03/14/2021 1:07 PM IR OR VASC Aniogram Image Storage Only Final Result CT Angiogram Chest for Pulmonary Embolus w Contrast Final Result Abnormal 1. No CT angiographic evidence of pulmonary [...] time of follow-up CT of the chest. Thank you for letting us participate in the care of this patient. If you are a health care provider and have any questions regarding this report, please contact the number below. For patients who have questions please contact the health director long term care that requested your imaging first. Electronically signed by: Steven Painting DO, [facility] ([phone]), at 03/12/2021 8:[address] Venogram Abdomen & Pelvis Final Result Abnormal 1. No CT angiographic evidence of pulmonary [...] time of follow-up CT of the chest. Thank you for letting us participate in the care of this patient. If you are a health care provider and have any questions regarding this report, please contact the number below. For patients who have questions please contact the health director long term care that requested your imaging first. Electronically signed by: Steven Painting DO [facility] ([phone]), at 03/12/2021 8:38 AM Request For 2nd Read CT Abdomen & Pelvis Final Result Addendum 1 of 1 --------ADDENDUM #1-------- EXAMINATION: * REQUEST FOR 2ND READ CT ABDOMEN AND PELVIS * CT OF THE ABDOMEN AND PELVIS WITH INTRAVENOUS CONTRAST. CLINICAL HISTORY: 60-year-old male with initially presenting with low back pain right lower extremity is cold and mottled. Request for second interpretation of outside imaging study. * Sending Institution [facility] [place] * Date of exam [id number] * I believe a reinterpretation of this exam may alter care of Patient. Yes TECHNIQUE: CT of the abdomen and pelvis with intravenous contrast was performed at [facility] on February 21, 2021. Helical CT images of the abdomen and pelvis were obtained with intravenous contrast. Per report, the patient received 100 mL Omnipaque 350 intravenous contrast. Multiplanar reformats were performed in the sagittal and coronal planes. Oral contrast was not administered. COMPARISON: There is no similar prior examination provided for comparison. FINDINGS: Sharepoint Developer Images: Noncontributory. Lower chest: Visualized structures within the inferior thorax are within normal limits. Liver: Liver is mildly diffusely hypoattenuating, consistent with hepatic steatosis. Bile ducts: Normal. Gallbladder: Normal. Pancreas: Normal. Spleen: Normal. Adrenals: Normal. Kidneys: There are bilateral parapelvic cysts, left greater than right. There is no hydroureter. The kidneys enhance symmetrically. There is nonspecific perinephric fat stranding bilaterally. Urinary Bladder: The urinary bladder is under distended, limiting evaluation. Vasculature: The aorta is normal in course and caliber. The origin the mesenteric and renal arteries are within normal limits. Visualized aspects of the bilateral lower extremity arterial vasculature is widely patent through the level of the mid superficial femoral arteries and profundus femoris arteries bilaterally. Timing of contrast administration and scanning limits evaluation of the visualized venous structures within the bilateral lower extremities. The bilateral common femoral veins and proximal greater saphenous veins appear patent. On the left, there is enlargement of the left external iliac vein with occlusive thrombus within its superior segment. Thrombus extends into the internal iliac vein and is diffusely present throughout the common iliac. On the right, the external iliac vein is patent. The internal iliac vein is patent. There is occlusive thrombus throughout the entirety of the right common iliac vein extending to the bifurcation. There is occlusive thrombus within the infrarenal inferior vena cava which extends across the midline into a lumbar collateral. There is focal stenosis of the infrarenal inferior vena cava are, which where the thrombus extends to. The suprarenal IVC is normal in course and caliber without intraluminal filling defects. The bilateral renal veins are widely patent. Partially visualized within the thorax or prominent azygos and hemiazygos veins, likely related to venous collaterals. There are prominent venous collaterals along the bilateral paraspinous musculature as well as within the ventral thecal sac. The superior mesenteric, splenic, and portal veins are patent. The hepatic veins are patent. Lymph Nodes: There are no pathologically enlarged lymph nodes. There are several prominent pelvic lymph nodes and retroperitoneal lymph nodes, which are likely reactive. Bowel: There is a small hiatal hernia with approximately one sixth of the stomach within the thoracic cavity. The stomach is under distended. The duodenum is normal in course and caliber. The remainder of the small bowel is within normal limits. The ileocecal valve is within normal limits. A normal air-filled and collapsed appendix is present in the right lower quadrant. There is a mild volume of stool throughout the course of the large bowel. The sigmoid colon is mildly redundant. Peritoneum and mesentery: No ascites, free air, or loculated fluid collection. Retroperitoneum: There are edematous and inflammatory changes throughout the retroperitoneum and bilateral pelvic sidewalls, left greater than right, with fat stranding. These predominantly surrounding the vascular structures but also extend more diffusely. Abdominal wall: Normal. Reproductive organs: The prostate gland is within normal limits for size. The seminal vesicles are within normal limits. There are bilateral varicoceles. Osseous structures: There is a small right anterior sacral iliac osteophytes. There are subchondral cysts within the inferior aspects of the bilateral sacroiliac joints, right greater than left. There are mild arthritic changes of bilateral hip joints. There are degenerative changes of visualized spine with endplate sclerosis, anterior osteophyte formation, multilevel Schmorl's node formation; these findings are most pronounced in the thoracic spine. There is disc desiccation with loss of intervertebral disc height and vacuum disc phenomenon. IMPRESSION: 1. 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 Thrombus extends into a prominent left lumbar vein, presumably collateral venous drainage secondary to stenosis of the infrarenal IVC. Occlusive thrombus extends into both the left internal and external iliac veins as well. Widely patent bilateral common femoral veins. 2. Timing of contrast administration limits evaluation of venous structures within the visualized lower extremities. 3. Prominent collateral venous drainage including paraspinal veins, venous plexus of the lumbar ventral thecal sac, and engorgement of the azygos / hemiazygos veins. 4. Widely patent arterial structures. 5. Edematous changes throughout the retroperitoneum extending into the pelvis, likely related to venous congestion due to thrombus. 6. Mild hepatic steatosis. Thank you for letting us participate in the care of this patient. If you are a health care provider and have any questions regarding this report, please contact the number below. For patients who have questions please contact the health director long term care that requested your imaging first. Electronically signed by: Steven Painting DO [facility] ([phone]), at 03/12/2021 8:37 AM --------ORIGINAL REPORT -------- EXAMINATION: * REQUEST FOR 2ND READ CT ABDOMEN AND PELVIS * CT OF THE ABDOMEN AND PELVIS WITH INTRAVENOUS CONTRAST. CLINICAL HISTORY: 60-year-old male with initially presenting with low back pain right lower extremity is cold and mottled. Request for second interpretation of outside imaging study. * Sending Institution [facility] [place] * Date of exam [id number] * I believe a reinterpretation of this exam may alter care of Patient. Yes TECHNIQUE: CT of the abdomen and pelvis with intravenous contrast was performed at [facility] on February 21, 2021. Helical CT images of the abdomen and pelvis were obtained with intravenous contrast. Per report, the patient received 100 mL Omnipaque 350 intravenous contrast. Multiplanar reformats were performed in the sagittal and coronal planes. Oral contrast was not administered. COMPARISON: There is no similar prior examination provided for comparison. FINDINGS: Sharepoint Developer Images: Noncontributory. Lower chest: Visualized structures within the inferior thorax are within normal limits. Liver: Liver is mildly diffusely hypoattenuating, consistent with hepatic steatosis. Bile ducts: Normal. Gallbladder: Normal. Pancreas: Normal. Spleen: Normal. Adrenals: Normal. Kidneys: There are bilateral parapelvic cysts, left greater than right. There is no hydroureter. The kidneys enhance symmetrically. There is nonspecific perinephric fat stranding bilaterally. Urinary Bladder: The urinary bladder is under distended, limiting evaluation. Vasculature: The aorta is normal in course and caliber. The origin the mesenteric and renal arteries are within normal limits. Visualized aspects of the bilateral lower extremity arterial vasculature is widely patent through the level of the mid superficial femoral arteries and profundus femoris arteries bilaterally. Timing of contrast administration and scanning limits evaluation of the visualized venous structures within the bilateral lower extremities. The bilateral common femoral veins and proximal greater saphenous veins appear patent. On the left, there is enlargement of the left external iliac vein with occlusive thrombus within its caudal segment. Thrombus extends into the internal iliac vein and is diffusely present throughout the common iliac. On the right, the external iliac vein is patent. The internal iliac vein is patent. There is occlusive thrombus throughout the entirety of the right common iliac vein extending to the bifurcation. There is occlusive thrombus within the infrarenal inferior vena cava which extends across the midline into a lumbar collateral. There is focal stenosis of the infrarenal inferior vena cava are, which where the thrombus extends to. The suprarenal IVC is normal in course and caliber without intraluminal filling defects. The bilateral renal veins are widely patent. Partially visualized within the thorax or prominent azygos and hemiazygos veins, likely related to venous collaterals. There are prominent venous collaterals along the bilateral paraspinous musculature as well as within the ventral thecal sac. The superior mesenteric, splenic, and portal veins are patent. The hepatic veins are patent. Lymph Nodes: There are no pathologically enlarged lymph nodes. There are several prominent pelvic lymph nodes and retroperitoneal lymph nodes, which are likely reactive. Bowel: There is a small hiatal hernia with approximately one sixth of the stomach within the thoracic cavity. The stomach is under distended. The duodenum is normal in course and caliber. The remainder of the small bowel is within normal limits. The ileocecal valve is within normal limits. A normal air-filled and collapsed appendix is present in the right lower quadrant. There is a mild volume of stool throughout the course of the large bowel. The sigmoid colon is mildly redundant. Peritoneum and mesentery: No ascites, free air, or loculated fluid collection. Retroperitoneum: There are edematous and inflammatory changes throughout the retroperitoneum and bilateral pelvic sidewalls, left greater than right, with fat stranding. These predominantly surrounding the vascular structures but also extend more diffusely. Abdominal wall: Normal. Reproductive organs: The prostate gland is within normal limits for size. The seminal vesicles are within normal limits. There are bilateral varicoceles. Osseous structures: There is a small right anterior sacral iliac osteophytes. There are subchondral cysts within the inferior aspects of the bilateral sacroiliac joints, right greater than left. There are mild arthritic changes of bilateral hip joints. There are degenerative changes of visualized spine with endplate sclerosis, anterior osteophyte formation, multilevel Schmorl's node formation; these findings are most pronounced in the thoracic spine. There is disc desiccation with loss of intervertebral disc height and vacuum disc phenomenon. IMPRESSION: 1. 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 Thrombus extends into a prominent left lumbar vein, presumably collateral venous drainage secondary to stenosis of the infrarenal IVC. Occlusive thrombus extends into both the right internal and external iliac veins as well. Widely patent bilateral common femoral veins. 2. Timing of contrast administration limits evaluation of venous structures within the visualized lower extremities. 3. Prominent collateral venous drainage including paraspinal veins, venous plexus of the lumbar ventral thecal sac, and engorgement of the azygos / hemiazygos veins. 4. Widely patent arterial structures. 5. Edematous changes throughout the retroperitoneum extending into the pelvis, likely related to venous congestion due to thrombus. 6. Mild hepatic steatosis. Thank you for letting us participate in the care of this patient. If you are a health care provider and have any questions regarding this report, please contact the number below. For patients who have questions please contact the health director long term care that requested your imaging first. Electronically signed by: Steven Painting DO, [facility] ([phone]), at 03/12/2021 8:12 AM Final 1. 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 Thrombus extends into a prominent left lumbar vein, presumably collateral venous drainage secondary to stenosis of the infrarenal IVC. Occlusive thrombus extends into both the right internal and external iliac veins as well. Widely patent bilateral common femoral veins. 2. Timing of contrast administration limits evaluation of venous structures within the visualized lower extremities. 3. Prominent collateral venous drainage including paraspinal veins, venous plexus of the lumbar ventral thecal sac, and engorgement of the azygos / hemiazygos veins. 4. Widely patent arterial structures. 5. Edematous changes throughout the retroperitoneum extending into the pelvis, likely related to venous congestion due to thrombus. 6. Mild hepatic steatosis. Thank you for letting us participate in the care of this patient. If you are a health care provider and have any questions regarding this report, please contact the number below. For patients who have questions please contact the health director long term care that requested your imaging first. Electronically signed by: Steven Painting DO, [facility] ([phone]), at 03/12/2021 8:12 AM Film Library- Storage Only CT Abdomen & Pelvis Final Result Procedures Assessment and Plan: 60 y.o. 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 Phlegmasia on exam. Vascular consulted for likely thrombectomy. Heparin gtt with leg elevation. Plan for admission to vascular. Did this case involve critical care? Yes CRITICAL CARE DOCUMENTATION: Is there a high potential of sudden, clinically significant, or life threatening deterioration? Yes Are there life and/or organ supporting interventions that require frequent personal assessment and manipulation or support to treat/prevent vital organ failure/deterioration? yes I personally performed 31 minutes of aggregate critical care time exclusive of procedures and teaching during this emergency department visit. This includes time spent during direct patient evaluation and reassessment, interpreting diagnostic tests, directing life and/or organ supporting interventions, and documentation. The visit findings, diagnosis, and care plan were discussed with the patient. Camacho Sevilla MD 03/28/21 1006 Enid Jc RN - 03/12/2021 10:[address] Humera Akins Anesthesiology at pt's bedside, consent. Dr Akins Anesthesiology called Dr Annie Wiley Vascular Surgery regarding pain management, aware Dr Annie Wiley requested this manual writer to hold pain medications for ongoing right leg assessment. Enid Jc RN - 03/12/2021 8:[address] Annie Wiley Vascular Surgery and team at pt's bedside, pt's right leg jose removed, pt C/O increased pain, pt had reported no sensation on right foot, feeling touch pressure mid calf, right foot swollen, C/O back calf pain worse, increased leg elevated to above level of heart on three pillows and[address] Wiley drawing on white board to illustrate pt right leg vascular concerns and plan of care; pt and pt's son engaged in care discussion. Enid Jc RN - 03/12/2021 8:08 AM EST Pt returned to room from CT Scan, pt A/O X4, pt reports pain right leg 10/09, pt requesting pain medication. Pt's son remains at bedside. Boris Youssef MD - 03/12/2021 7:25 AM EST ED Patient Care Transition Patient: Amilcar Pate Date: 03/12/2021 Time: 7:25 AM Pt has been signed out to me by Dr Sevilla with a chief complaint of ischemic limb. I have followed up on repeat imaging which demonstrated occlusion of the IVC. I have also treated the pt with heparin drip and as needed pain control Pt will be admitted to vascular surgery. Results for orders placed or performed during the hospital encounter of 03/12/[address] Request For [address]nd Read CT Abdomen & Pelvis (Exam End: 03/12/2021 6:27 AM) Impression 1. 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 Thrombus extends into a prominent left lumbar vein, presumably collateral venous drainage secondary to stenosis of the infrarenal IVC. Occlusive thrombus extends into both the right internal and external iliac veins as well. Widely patent bilateral common femoral veins. 2. Timing of contrast administration limits evaluation of venous structures within the visualized lower extremities. 3. Prominent collateral venous drainage including paraspinal veins, venous plexus of the lumbar ventral thecal sac, and engorgement of the azygos / hemiazygos veins. 4. Widely patent arterial structures. 5. Edematous changes throughout the retroperitoneum extending into the pelvis, likely related to venous congestion due to thrombus. 6. Mild hepatic steatosis. Thank you for letting us participate in the care of this patient. If you are a health care provider and have any questions regarding this report, please contact the number below. For patients who have questions please contact the health director long term care that requested your imaging first. Electronically signed by: Steven Painting DO [facility] ([phone]), at 03/12/2021 8:[address] Angiogram Chest for Pulmonary Embolus w Contrast (Exam End: 03/12/2021 8:12 AM) Impression 1. No CT angiographic evidence of pulmonary [...] time of follow-up CT of the chest. Thank you for letting us participate in the care of this patient. If you are a health care provider and have any questions regarding this report, please contact the number below. For patients who have questions please contact the health director long term care that requested your imaging first. Electronically signed by: Steven Painting DO [facility] ([phone]), at 03/12/2021 8:[address] Venogram Abdomen & Pelvis (Exam End: 03/12/2021 8:12 AM) Impression 1. No CT angiographic evidence of pulmonary [...] time of follow-up CT of the chest. Thank you for letting us participate in the care of this patient. If you are a health care provider and have any questions regarding this report, please contact the number below. For patients who have questions please contact the health director long term care that requested your imaging first. Electronically signed by: Steven Painting DO, [facility] ([phone]), at 03/12/2021 8:38 AM MD Jia Han Miguel A, MD Resident 03/12/21 1004 Associated attestation - Reinaldo Merino MD - 03/12/2021 2:55 PM EST ED ATTENDING ATTESTATION The patient was seen in conjunction with the resident physician. I have independently performed the hooker portions of the history and physical exam. I have personally reviewed nursing notes, vital signs,and diagnostic studies including labs, imaging studies and EKGs. I have discussed the details of the case with the resident and agree with the assessment and plan as described in the resident's note, unless stated otherwise in my separate note. Did this case involve critical care? No Varun Vilchis RN - 03/12/2021 5:19 AM EST 0515H Vascular team at bedside. 0541H Being reevaluated by Vascular surgery. 0700H Handed over. Stable. documented in this encounter Miscellaneous Notes Care Management Discharge - Italia Galo RN - 03/20/2021 12:10 PM EST CARE MANAGEMENT FINAL DISCHARGE NOTE Chart reviewed, care reviewed with primary team and at interdisciplinary rounds. Patient is medically ready for discharge to home with visiting nurses. Needs for Transition of Care: Plan for discharge is: Home w/ Services Home Health Services: Registered Nurse, Physical Therapy Agency Referrals & Follow-up Care: Contact information for follow-up [facility] [address] [place] [address] Transportation: family or friend will provide - will come to get him Functional status prior to admission: Independent Home Environment: Others in the home: spouse. . Accessibility Concerns: Karlie Pate ([phone])([phone]). Current Functional Ability: Assistive Person and Equipment DME used at home: none DME Needed at Discharge: N/A - wound vac no longer needed Patient is insured through: Primary Insurance: MVP Payor: MVP / Plan: MVP [place] / Product Type: *No Product type* / Secondary Insurance: N/A Prescription Coverage: Yes Preferred Pharmacy: [facility] [address] [place] [address] [place] - [address] [place] [address] This plan was formulated with input from patient and team. All are in agreement with plan. Italia FELTON RN Phone: [phone] Pager: [phone] Plan of Care - Charlene Concepcion RN - 03/20/2021 1:38 AM EST OUTCOME EVALUATION NOTE: OUTCOME SUMMARY: 2239-C/O 6/10 headache and right leg incisional pain, given Oxycodone 5 mg po and Tylenol with relief. Had large BM and voiding adequate amount. 2299-Seen by phone counselor c/o swelling on the left leg with relief after elevation on a pillow. PLAN MOVING FORWARD: Pain control, discharge home in am. INDIVIDUALIZED FALL PREVENTION INTERVENTIONS: Patient-specific fall risk factors per assessment: [current deficits]: Narcotics, Mobility aid at home, needs assistance getting in and out of bed or chair, pain with movement/ ambulation. Assistance [level of assistance required for transfers and ambulation]: Walker, Non-skid slippers, 1assist Supervision [direct monitoring required during toileting and ADLs]: Hands on . Surveillance [continuous indirect monitoring]: Purposeful rounding; call light in reach Patient-specific fall prevention interventions for sensory deficits provided, if applicable: Lighting adjusted for safety. CPG GOAL OUTCOME EVALUATION: Plan of Care - Rosita Patel RN - 03/19/2021 5:10 PM EST Outcome Evaluation Note: Outcome Summary: Jun had a good day. A&Ox4, VSS on RA, afebrile. Reports moderate pain, he is taking Tylenol & Oxy after discussion with MD. Adequate urine output, 1 BM this shift.??Neurovasc checks remain unchanged.??Will continue to monitor Plan Moving Forward: Discharge. Individualized Fall Prevention Interventions: Patient-specific fall risk factors per assessment: [current deficits]: Generalized weakness RLE & LLE. Assistance [level of assistance required for transfers and ambulation]: 1A w FWW. Supervision [direct monitoring required during toileting and ADLs]: Hands on. Surveillance [continuous indirect monitoring]: Masimo, call hills within reach, purposeful hourly rounding, bed alarm. Patient-specific fall prevention interventions for sensory deficits provided, if applicable: Yes. CPG Goal Outcome Evaluation: Ongoing. Plan of Care - Rosita Patel RN - 03/18/2021 5:17 PM EST Outcome Evaluation Note: Outcome Summary: Jun had a good day. A&Ox4, VSS on RA, afebrile. Went to OR for debridement & removal of wound vac & LIZETTE. Reports moderate pain that is well controlled with current pain regimen. Adequate urine output, no BM this shift. Heparin gtt continuous at 1750un/hr. Neurovasc checks remain unchanged. Will continue to monitor. Plan Moving Forward: Encourage independence. Individualized Fall Prevention Interventions: Patient-specific fall risk factors per assessment: [current deficits]: Generalized weakness RLE & LLE. Assistance [level of assistance required for transfers and ambulation]: 1A stand pivot w FWW. Supervision [direct monitoring required during toileting and ADLs]: Hands on. Surveillance [continuous indirect monitoring]: Masimo, call hills within reach, purposeful hourly rounding, bed alarm. Patient-specific fall prevention interventions for sensory deficits provided, if applicable: Yes. CPG Goal Outcome Evaluation: Ongoing. Op Note - Cristina Amador MD - 03/18/2021 12:03 PM EST [facility] Operative Note Patient Name: Amilcar Pate : [id number] MR#: [id number] Case Date: 03/18/2021 Surgeon: Surgeon(s) and Role: * Lukasz Patterson MD - Primary * Cristina Amador MD - Resident Preoperative diagnosis: right leg fasciotomy site Postoperative diagnosis: right leg fasciotomy site Procedure(s) (LRB): DEBRIDEMENT SKIN AND SUBCU, LOWER EXTREMITY (WRVU 1.01) (Right) Findings: Wound vac with black sponge removed revealing healthy muscle and granulation tissue. Kassandra and rubber band removed. Lateral fasciotomy incision closed with 3.0 prolene vertical mattress sutures. Medial thigh LIZETTE drain removed. Leg wrapped with kerlix and jose bandage. Anesthesia: General Estimated Blood Loss: * No values recorded between 03/18/2021 11:03 AM and 03/18/2021 11:39 AM * Specimens removed during surgery: None Drains: None Surgical Closure: Primary Closure - skin incision is completely closed without any wires, chantelle, drains or other devices Disposition: awakened from anesthesia, extubated and taken to the recovery room in a stable condition, having suffered no apparent untoward event. Condition: doing well without problems (Please see the Surgical Encounter Summary for any Implant and Specimen details pertinent to this patient.) HPI/Surgical Indications: Amilcar Pate is a 60 year old man recently diagnosed with COVID19 who was recently diagnosed with a DVT and was on anticoagulation. His anticoagulation was held for a procedure and he developed acute worsening of right leg swelling and symptoms consistent with phlegmasia.CT findings were notable for IVC infrarenal thrombosis, R CIV/R EIV/L CIV thrombosis. He recently underwent urgent suprarenal IVC filter placement, endovascular mechanical thrombectomy of IVC, R CIV, and REIV, completion angiogram, right leg thrombectomy, and 4 compartment fasciotomy. His right lateral fasciotomy incision site was most recently left open with a wound vac in place. We discussed with the patient the need to return to the OR for possible RLE washout, debridement, wound vac exchange or closure. The risks, benefits and alternatives of the procedure were discussed with the patient and heelected to proceed.?? Procedure Description: The patient was correctly identified in the 4W step down unit. After a discussion of the risks, benefits and alternatives of the procedure and after answering all of the patient's questions, the patient wished to proceed and then was consented for the operation. The patient was brought back to the Operating Room and placed supine on the operating table. Amilcar Pate was intubated by the Anesthesia Service without difficulty. The patient was then prepped and draped in the standard sterile fashion using betadine. Pre-operative antibiotics were administered, and a full standard time out was completed prior to initiating the procedure. Attention was turned to the patient's right lower extremity lateral fasciotomy incision site. Viable, bulging muscle with healthy granulation tissue was present. We removed kassandra from the lateral aspects of the incision and 1 rubber band. The incision was then copiously irrigated with 0.9% saline patricia ution. It was determined that closure could be achieved.The lateral aspects of the incision were approximated with 3.0 prolene vertical mattress sutures. We then removed the right medial thigh LIZETTE-drainin one piece. There was no evidence of bleeding. The right leg was wrapped in kerlix and jose-bandages. All sponge and instrument counts were correct at the end of the procedure. Infection Bundle used? N/A Associated attestation - Lukasz Patterson MD - 03/26/2021 6:25 AM EST Attestation: Case Date: 03/18/2021 Attending Attestation I was the attending physician supervising the resident/fellow in the above care and I was present with the resident/fellow for the entire procedure. I was present during the intraservice time as documented by the sedation RN. LUKASZ PATTERSON MD 03/26/2021 Care Management - Italia Galo RN - 03/18/2021 11:42 AM EST OFFICE OF CARE MANAGEMENT PROGRESS NOTE LOS: Hospital Day 6 days Chart reviewed, care reviewed with primary team and at interdisciplinary rounds. Patient continues to meet inpatient level of care related to: s/p IVC filter removal, thrombectomy of left iliac veins and stenting on 03/16. Plan to return to OR today for closure of right lateral fasciotomy incision vs wound vac change Functional status prior to admission: Independent Home Environment: Others in the home: spouse. . Accessibility Concerns: Karlie Pate ([phone])([phone]). Current Functional Ability: Assistive Person and Equipment DME used at home: none DME Needed at Discharge: Other DME Needs: Wound Vac Provider: VINCE Patient is insured through: Primary Insurance: MVP Payor: MVP / Plan: MVP [place] / Product Type: *No Product type* / Secondary Insurance: N/A Prescription Coverage: Yes Preferred Pharmacy: [facility] [address] [place] [address], [place] - [address] [place] [address] [address] [facility] [id number] Plan for discharge is: Home w/ Services Home Health Services: Registered Nurse, Physical Therapy Agency Referrals & Follow-up Care: [facility] PHONE: [phone] FAX: [phone] Transportation: family or friend will provide Barriers to discharge: Denies needs/concerns at this time Plan going forward: s/p IVC filter removal, thrombectomy of left iliac veins and stenting on 03/16. Plan to return to OR today for closure of right lateral fasciotomy incision vs wound vac change. If fasciotomies are left open will need a wound vac at time of discharge. Care Management will continue to follow and assist with discharge planning and coordination of care as indicated. Anticipated Date of Discharge: 03/22/2021 Italia FELTON RN Phone: [phone] Pager: [phone] Plan of Care - Rosita Patel RN - 03/17/2021 2:51 PM EST Outcome Evaluation Note: Outcome Summary: Jun had a good day. A&Ox4, VSS on RA, afebrile. Reports moderate pain that is well controlled with current pain regimen. Adequate urine output, no BM this shift. R thigh LIZETTE drain is draining serosang output. R leg wound vac to -125 suction, serosang output. Pt will be NPO at midnight, awaiting OR for debridement. Heparin gtt continuous at 1750un/hr. Neurovasc checks remain unchanged. Will continue to monitor. Plan Moving Forward: Encourage independence, work with PT / OT. Individualized Fall Prevention Interventions: Patient-specific fall risk factors per assessment: [current deficits]: Generalized weakness - RLE & LLE, unfamiliar environment. Assistance [level of assistance required for transfers and ambulation]: 1A stand pivot with FWW. Supervision [direct monitoring required during toileting and ADLs]: Hands on. Surveillance [continuous indirect monitoring]: Masimo, call hills within reach, purposeful hourly rounding, bed alarm. Patient-specific fall prevention interventions for sensory deficits provided, if applicable: Yes. CPG Goal Outcome Evaluation: Ongoing. Care Management - Italia Galo RN - 03/15/2021 3:33 PM EST OFFICE OF CARE MANAGEMENT PROGRESS NOTE LOS: Hospital Day 3 days Chart reviewed, care reviewed with primary team and at interdisciplinary rounds. Patient continues to meet inpatient level of care related to: IVC and R iliac vein thrombectomy. ?? NPO since MN for IVC removal today Continue therapeutic heparin drip Bilateral lower extremity SCDs, jose compression Plan for return to IR today, will complete RLE VAC dressing change while under sedation ?? Norma Mcmillan APRN Functional status prior to admission: Independent Home Environment: Others in the home: spouse. . Accessibility Concerns: Karlie Pate ([phone]). Current Functional Ability: Assistive Person and Equipment DME used at home: none DME Needed at Discharge: Other DME Needs: Wound Vac Provider: VINCE Patient is insured through: Primary Insurance: MVP Payor: MVP / Plan: MVP [place] / Product Type: *No Product type* / Secondary Insurance: N/A Prescription Coverage: Yes Preferred Pharmacy: [facility] [address] [place] [address] - [address] [place] [address] [address] [place] [address] [address] [facility] [id number] Last Physical Therapy Recommendation: with Last Occupational Therapy Recommendation: with Plan for discharge is: Home w/ Services Home Health Services: Registered Nurse, Physical Therapy Agency Referrals & Follow-up Care: The patient has been provided a list of Home Health Agencies/DME vendors which serve their preferredgeographic area. A letter describing our affiliations was reviewed with them and they were educated about their right to choose where referrals are placed. Provided patient with [facility] Star Quality Rating for Home care hand out. Patient requests referral to [facility] [employer] [facility] [employer] PHONE: [phone] FAX: [phone]. Expected date of discharge: 03/18/2021. Referral routed to the Food Safety Field Specialist for matching with agency/vendor and to provide any required information. Transportation: family or friend will provide Barriers to discharge: Denies needs/concerns at this time Plan going forward: IVC and R iliac vein thrombectomy. ?? NPO since MN for IVC removal today Continue therapeutic heparin drip Bilateral lower extremity SCDs, jose compression Plan for return to IR today, will complete RLE VAC dressing change while under sedation ?? Norma Mcmillan APRN Care Management will continue to follow and assist with discharge planning and coordination of care as indicated. Anticipated Date of Discharge: 03/18/2021 Italia FELTON RN Phone: [phone] Pager: [phone] Plan of Care - Lilibeth Wilks RN - 03/15/2021 1:22 PM EST OUTCOME EVALUATION NOTE: OUTCOME SUMMARY: A&Ox4. VSS. Placed on 2L NC after IR procedure. Went down to IR for venogram, came back around 1430. Incisions CDI. BLE wrapped w/ jose. Neurovasc checks remain unchanged. Heparin gtt restarted, UFHdue @ 2044. AUOP from acuña. No BM, pt is passing gas and scheduled bowel meds given. PLAN MOVING FORWARD: Monitor UFH Pain management Q2 neurovascular checks INDIVIDUALIZED FALL PREVENTION INTERVENTIONS: Patient-specific fall risk factors per assessment: [current deficits]: Generalized weakness, pain, lines/drains Assistance [level of assistance required for transfers and ambulation]: Bedrest Supervision [direct monitoring required during toileting and ADLs]: Hands on Surveillance [continuous indirect monitoring]: Purposeful rounding, call hills within reach, Gen Patient-specific fall prevention interventions for sensory deficits provided, if applicable: [X] N/A CPG GOAL OUTCOME EVALUATION: Op Note - Cristina Amador MD - 03/14/2021 12:21 PM EST [facility] Operative Note Patient Name: Amilcar Pate : [id number] MR#: [id number] Case Date: 03/14/2021 Surgeon: Surgeon(s) and Role: * Deonte De Los Santos MD - Primary * Cristina Amador MD - Resident * Marlene Rodríguez MD Preoperative diagnosis: right leg fasciotomy Postoperative diagnosis: right leg fasciotomy Procedure(s) (LRB): DEBRIDEMENT SKIN, SUBCU, MUSCLE, LOWER EXTREMITY (WRVU 2.7) (Right) Findings: 4 compartment fasciotomy sites with healthy muscle and surrounding tissue. Medial incisionon left lower extremity approximated with vicryl sutures and closed with kassandra. Lateral incision on left lower extremity left open with gradual approximation via kassandra and rubber bands. Wound vac placed over left lateral incision with 2 black sponges (one over wound, and one bridging sponge), holding suction appropriately. Anesthesia: General Estimated Blood Loss: 10 mL Specimens removed during surgery: None Drains: Wound vac Surgical Closure: Medial wound closed primarily with suture and kassandra. Lateral wound superficial and deep layers are completely open. Disposition: awakened from anesthesia, extubated and taken to the recovery room in a stable condition, having suffered no apparent untoward event. Condition: doing well without problems (Please see the Surgical Encounter Summary for any Implant and Specimen details pertinent to this patient.) HPI/Surgical Indications: Amilcar Pate is a 60 year old man recently diagnosed with COVID19 who was recently diagnosed with a DVT and was on anticoagulation. His anticoagulation was held for a procedure and he developed acute worsening of right leg swelling and symptoms consistent with phlegmasia.CT findings were notable for IVC infrarenal thrombosis, R CIV/R EIV/L CIV thrombosis. He recently underwent urgent suprarenal IVC filter placement, endovascular mechanical thrombectomy of IVC, R CIV, and REIV, completion angiogram, right leg thrombectomy, and 4 compartment fasciotomy. His fasciotomy incisions were left open and covered with wet to dry dressings. We discussed with the patient the needto return to the OR for RLE washout and debridement, potential wound vac placement, and potential closure. The risks, benefits and alternatives of the procedure were discussed with the patient and he elected to proceed. Procedure Description: The patient was correctly identified in the 4W step down unit. After a discussion of the risks, benefits and alternatives of the procedure and after answering all of the patient's questions, the patient wished to proceed and then was consented for the operation. The patient was brought back to the Operating Room and placed supine on the operating table. Amilcar Pate was intubated by the Anesthesia Service without difficulty. The patient was then prepped and draped in the standard sterile fashion using betadine. Pre- operative antibiotics were administered, and a full standard time out was completed prior to initiating the procedure. Attention was turned to the patient's right lower extremity where four compartment fasciotomies had previously been performed. Viable, bulging muscle was present in all compartments. We first started with the medial incision site which was healthy in appearance and without evidence of purulence or necrosis. It was copiously irrigated with 0.9% saline solution. There was no evidence of bleeding. The subcutaneous tissues were then re-approximated with 3.0 vicryl, simple interrupted sutures. The skin was re-approximated with kassandra. The lateral incision site also was healthy in appearance and withoutevidence of purulence or necrosis. It was copiously irrigated with 0.9% saline solution. Closure could not be achieved without tension due to edema. Thus, the decision was made to use a modified shoelace technique with rubber bands for delayed primary closure of the lateral fasciotomy site. A sterile rubber band and skin stapler were obtained. A single staple anchored the rubber band at the apex of the wound. Single kassandra were then used to anchor the rubber band at the skin edges of the wound. Therubber band was subsequently crossed over to create and X shape, and again the lateral aspects were anchored at the skin edge with a single staple. This was repeated for the entirety of the wound. A black sponge was cut to fit the size of the wound. It was covered with an occlusive dressing and a hole was cut into the center of the sponge. A separate black sponge was used to bridge to this area, and was again covered in an occlusive dressing. A luis pad was placed and connected to a negative pressure wound VAC to -125 mmHg. There was no evidence of airleak. It was noted that the patient's left thigh was more edematous and tense than his left thigh. The skin was not erythematous. Doppler was used to evaluate left DP and PT signals, both of which were triphasic. An ultrasound was used to evaluate. There was evidence of thrombosis of left common femoral vein. The patient is planned for a CT venogram to better characterize the potential thrombosis. The patient's medial wound was covered with two pieces of 4x4 gauze and an overlying tegaderm. His right and left lower extremities were wrapped in an JOSE bandage. All sponge and instrument counts werecorrect at the end of the procedure. Dr. De Los Santos, the attending surgeon, was present and scrubbed for the duration of the procedure. Infection Bundle used? N/A Associated attestation - Deonte De Los Santos MD - 03/14/2021 3:48 PM EST Attestation: Case Date: 03/14/2021 I was present and I participated during the entire procedure (does not need to include opening and closing). Deonte De Los Santos MD 03/14/2021 Brief Op Note - Cristina Amador MD - 03/14/2021 10:09 AM EST Brief Operative Note Patient Name: Amilcar Pate : [id number] MR#: [id number] Case Date: 03/14/2021 Surgeon: Surgeon(s) and Role: * Deonte De Los Santos MD - Primary * Cristina Amador MD - Resident * Marlene Rodríguez MD Preoperative diagnosis: right leg fasciotomy Postoperative diagnosis: right leg fasciotomy Procedure(s) (LRB): DEBRIDEMENT SKIN, SUBCU, MUSCLE, LOWER EXTREMITY (WRVU 2.7) (Right) Anesthesia: General Findings: 4 compartment fasciotomy sites with healthy muscle and surrounding tissue. Medial incisionon left lower extremity approximated with vicryl sutures and closed with kassandra. Lateral incision on left lower extremity left open with gradual approximation via kassandra and rubber bands. Wound vac placed over left lateral incision with 2 black sponges (one over wound, and one bridging sponge), holding suction appropriately. Complications: None Estimated Blood Loss: 10 mL * No values recorded between 03/14/2021 8:40 AM and 03/14/2021 9:05 AM * Specimens removed during surgery: None Fluids: Intraprocedure Crystalloid Total None PRBCs: none (See Anesthesia Record/Report for Other Blood Products) Urine Output: (no urine output recorded) Drains: Wound vac placed (2 black sponges) Disposition: awakened from anesthesia, extubated and taken to the recovery room in a stable condition, having suffered no apparent untoward event. Condition: doing well without problems (Please see the Surgical Encounter Summary for any Implant and Specimen details pertinent to this patient.) Infection Bundle used? N/A Consult Note - Areli Glover, [facility] - 03/13/2021 10:06 AM EST [facility] Home Medication List Update for Medication Reconciliation 03/13/21 10:06 AM Amilcar Pate 1960 No Known Allergies ??? Person Interviewed: patient ??? Quality of Interview/accuracy of medication list: good ??? Sources used to compile medication list: [x] Epic medication list [x] SureScripts [] PCP/Specialist list [] Retail pharmacy [] Patient list [] MAR [] Other ??? Changes made to home medication list: o Additions: - Acetaminophen 650mg PO q6h PRN o Deletions: - Ibuprofen - Oxycodone o Changes: - none ??? Additional Notes: none ??? Recommended changes: none The home medication list is now updated to the best of my knowledge and is ready to be reconciled bythe provider. Please contact the TelePharmacy Medication Reconciliation Pharmacist at [phone] for any questions. 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 Procedure: Right femoral vein cutdown and exposure for delivery of endovascular device Ultrasound and fluoroscopic guided right IJ vein access Suprarenal IVC filter placement Endovascular mechanical thrombectomy of IVC and right common and external iliac vein IVC, right common and right external iliac vein stenting Compression thrombectomy of right lower leg Right leg 4-compartment fasciotomies Surgeons: Michaelle Ford Anesthesia: General endotracheal anesthesia Fluids: 1400 mL crystalloid Heparin: 59201 units Protamine: None Fluoro Time: 43.1 min Contrast: 197 mL EBL: 500 mL UOP: 800 mL Indications for the Procedure: Amilcar Pate is a 60 year old man recently diagnosed with AIFFW19ivo was recently diagnosed with a DVT and was on anticoagulation. His anticoagulation was held for aprocedure and he developed acute worsening of right leg swelling and symptoms consistent with phlegmasia. CT findings were notable for IVC infrarenal thrombosis, R CIV/R EIV/L CIV thrombosis. The risks, benefits and alternatives of the procedure were discussed with the patient and he elected to proceed. Findings: Right IJ access - suprarenal IVC filter placement Right thigh femoral vein cutdown Initial venogram noted for infrarenal IVC and bilateral CIV thrombosis Endovascular mechanical thrombectomy with ClotTriever of IVC, R CIV and R EIV with return of acute red and pale white colored clot Repeat venogram notable for infrarenal IVC stenosis - predilated with Temple 14 mm balloon IVC and R CIV stented with Venous WallStent 20 x 80 mm Extended distally into R EIVA with Wallstent 20 x 80 mm Postdilated with Temple 16 mm balloon Completion angiogram with brisk flow through right CFV, EIV, CFV and IVC Right leg thrombectomy with Esmarc of right leg with mild amount of thrombus removed but calf appeared improved 4-compartment fasciotomy of right leg completed - pink bulging muscles x all compartments Bilateral DP/PT signals postoperatively Operative Procedure: The patient was correctly identified in the pre-procedure holding area. After a discussion of the risks and benefits, operative consent was obtained. The patient was brought to the operating room and placed supine upon the operating room table. After induction of general endotracheal anesthesia the patient was prepped and draped in the usual sterile fashion. The patient received preoperative antibiotics. A time-out was performed by the attending surgeon. The right IJ was accessed with a micropuncture kit with ultrasound and fluoroscopic guidance. This was upsized to a 5 F sheath over a J wire. The J wire and a KMP catheter were used to cross into the suprarenal IVC. Venography was completed. There was not sufficient length in the infrarenal IVC to place the IVC filter and complete thrombectomy so we elected to place a suprarenal IVC filter. The wire was exchanged for a Tripathi. The jugular Celect IVC filter sheath was advanced over the tripathi wire and positioned in place. The filter was advanced through the sheath and then deployed in our predetermined location. The patient was already on a heparin drip. A heparin bolus was given, serial ACTs were checked throughout the case and heparin was redosed as needed throughout the case. The sheath was then exchanged for a 12F DrySeal. The right femoral vein was identified by ultrasound in the right thigh. An incision as made overlying this. Dissection was carried through the subcutaneous tissue with electrocautery. The sartorius wasreflected laterally. The femoral vein was identified, dissected free and encircled with vessel loopsproximally and distally. The femoral vein was accessed with a micropuncture kit. This was exchanged for an 8F sheath. Several wire and catheter combinations were used to cross the right iliac vein occlusion. This was eventually successful with a 30g Victory wire and QuickCross catheter. The wire was exchanged for an Amplatz through the QuickCross. A 6F EnSnare was introduced from the neck and the wire was snared for thru and thru access. The right femoral vein sheath was exchanged for the ClotTriever 16F sheath. The ClotTriever was advanced and mechanical thrombectomy was completed of the IVC, right CIV and right EIV per senior escrow officer'sspecifications. There was return of acute appearing, unorganized pale clot. Repeat venogram showed recanalization of the IVC and right iliac veins but was also notable for an IVC stenosis. This was predilated with a 14 mm Temple balloon. A Venous WallStent 20 x 80 mm was positioned across the area of stenosis in the infrarenal IVC and deployed. This was extended distally with a second WallStent into the right external iliac vein. The stents were postdilated with a 16 mm Temple balloon. Completion venog jeannie was completed with the findings as above. The cephalad portion of the right femoral vein was clamped and the right femoral vein was removed. The right leg was wrapped with an Esmarc to complete thrombectomy of the right leg. There was some resultant clot that was removed. Once this was completed a caudal femoral vein clamp was applied. The arteriotomy was repaired with interrupted 6-0 Prolene sutures. The vein was flushed prior to completion. Hemostasis was augmented with thrombin gelfoam. Four compartment fasciotomies of the right lower leg were performed. A medial incision was created 2cm posterior to the posterior crest of the tibia. Subcutaneous tissue was divided with electrocauteryto expose the fascia. The intermuscular septum dividing the superficial and deep posterior compartments was identified and the fascia overlying each compartment was divided with electrocautery. Viable,bulging muscle exposed in both compartments. The lateral incision was created lateral to the anterior tibial crest and electrocautery was used to divide the subcutaneous tissue down to the fascia. The intramuscular septum between the anterior and lateral compartments was identified and the fascia overlying each compartment divided, taking care to preserve the superficial peroneal nerve in the lateralcompartment. Viable, bulging muscle was exposed in both compartments. Hemostasis was obtained. There right neck 12F sheath was removed and manual pressure was held. The right thigh incision was closed in multiple layers with Vicryl and kassandra. Surgical dressings were applied to all incisions. The right calf and thigh were soft. Both legs were wrapped with JOSE wrap compression. The patient had bilateral DP/PT signals. SCDs were applied to both legs. All counts were correct at the end of the case. The patient was awakened, extubated, and transferredto the ICU in stable condition. Dr. Rodríguez, the attending surgeon, was scrubbed and present for the entire procedure. Complications: None apparent Disposition: To ICU Sachi Ford Vascular Surgery Fellow pager [phone] 03/12/2021 Associated attestation - Marlene Rodríguez MD - 03/16/2021 7:39 PM EST Attestation: Case Date: 03/14/2021 I was present and I participated during the entire procedure (does not need to include opening and closing). MARLENE RODRÍGUEZ MD 03/16/2021 Initial Assessments - Neelima Busby MSW - 03/12/2021 11:03 AM EST Office of Care Management Initial Assessment BRITTANY Quinones reviewed record and discussed patient with Care Team. Source of Information: Team, bedside nurse, medical record, and Chart Review BRITTANY Busby Introduced self/reviewed role; services accepted. Reason for Hospitalization: Leg Pain- Hospital transfer Covid Vaccination Status: Unvaccinated Last COVID test: 03/12/21 Needs to be collected Past medical History: History reviewed. No pertinent past medical history. Hospitalizations Within the Past 30 Days: current reason for admission unrelated to previous admission Current Decision-Making Capacity: Self Advance Care Planning: Attempt Cardiopulmonary Resuscitation - Inpatient <no information> -Advanced Directive: No, need to discuss ( Karlie Pate ([phone])) If AD's have not been completed Karlie Pate ([phone]) would be surrogate decision maker per [place] surrogate decision making law. (Only good for 180 days) Any patient receiving care at [facility] must abide by [place] law. The hierarchy for surrogate decision making is: (a) Patient???s spouse, or civil union partner or common law spouse unless there is a divorce proceeding, separation agreement, or restraining order limiting that person???s relationship with the patient. (b) Any adult son or daughter of the patient. (c) Either parent of the patient. (d) Any adult brother or sister of the patient. (e) Any adult grandchild of the patient. (f) Any grandparent of the patient. (g) Any adult aunt, uncle, niece, or nephew of the patient. (h) A close friend of the patient. (i) The agent with financial power of cnmt or a conservator appointed in accordance with RSA 464-A. (j) The guardian of the patient???s estate. Current Coping/Education/Information Needs: Advanced Directive Current Functional Ability: Independent Functional Status Prior to Admission: Independent Home Environment: Others in the home: spouse. . Accessibility Concerns: Karlie Pate ([phone])([phone]). Current DME: none Home Address listed as: [facility] [place] [id number] Social & Family Supports: All names listed below confirmed with patient as current and correct Extended Emergency Contact Information Primary Emergency Contact: Karlie Pate Address: [address] [place] [address] [facility] Relation: Spouse Secondary Emergency Contact: Steven Greenwood [facility] Relation: Other Current Care Provided by: spouse/significant other,self Provides Primary Care For: no one Caregiver if needed: spouse,child(mirella), adult Quality of Family relationships: helpful Community Resources being provided currently: none Behavioral Health History: Substance Use/Abuse listed: Social History Tobacco Use Smoking Status Former Smoker Smokeless Tobacco Never Used 0 No problems reported 1-2 Low level 3-5 Moderate level 6-8 Substantial level 9- 10 Severe level 0 to 7 points: Low risk 8 to 15 points: Medium risk 16 to 19 points: High risk 20 to 40 points: Addiction likely Other Pertinent/Service Specific Information: none Health/Prescription Coverage: Primary Insurance: MVP Payor: MVP / Plan: [place] / Product Type: *No Product type* / Secondary Insurance: N/A Prescription Coverage: Yes [facility] [address] [place] [address], [place] - [address] [facility] [id number] [place] Status: Patient is a : unable to assess Primary Care Provider: None None Patient/Caregiver Goals of Treatment: return home when medically ready. Potential Needs for Transition of Care: outpatient care Agency Referrals: Not Applicable Transportation: no concerns Transportation Anticipated: family or friend will provide Concerns to be Addressed: no discharge needs identified Assessment: Patient is admitted to Vascular Surgery service for DVT Plan: Admitted to inpatient vascular surgery. Discharge disposition pending. A member of the Care Management team will continue to monitor progress, follow for continuity of care and assist with transition of care planning. Neelima Busby MSW ED Triage - Varun Vilchis RN - 03/12/2021 5:02 AM EST Hospital Transfer from [facility] brought by EMS, history of clots in legs, had colonoscopy andendoscopy in [facility] yesterday, Eliquis was stopped for 3 days, developed numbness/diminished pulses/discoloration on right lower extremity associated with pain/discoloration. Awake, alert, not in distress, respirations even unlabored, right lower extremity covered with bandage, cyanotic toes, cool to touch, unable to move toes, less to no sensation, unable to palpate pulses due to bandage. Denies chestpain/shortness of breath/palpitation/headache. Covid positive last Feb 26, 2021. Received doses of Fentanyl/Dilaudid/Zofran at outside hospital and from EMS. EMS has administered 4mg Zofran at 0415H, 100mcg of Fentanyl last dose at 0425H, 40mg of Ketamine last dose at 0430H. HPI (Adult) Stated Reason for Visit: Hospital Transfer from [facility] brought by EMS, case of right leg ischemia, had colonoscopy and endoscopy yesterday in [facility] and so his Eliquis were stopped for 3 days for the procedure, today at 0045H developed crampy/burning pain on his leg with some difficulty ambulating, complete numbness and inability to move leg, associated with purplish discoloration with diminished pulses, claims he has history of clots before History Obtained From: patient,family Precipitating Event(s): other (see comments) Onset of Symptoms: sudden Duration (Days): 1 documented in this encounter Plan of Treatment Scheduled Referrals Name Type Priority Associated Diagnoses Order S chedule Referral to Outpatient Referral Routine Inguinal hernia Order ed: General Surgery without obstruction 03/20 or gangrene, recurrence not specified, unspecified laterality Referral to Outpatient Referral Routine Lung nodule Ordered: General Internal Encounter to 03/20/2021 Medicine establish care documented as of this encounter Procedures Procedure Name Priority Date/Time Associated Comments Diagnosis HEMOGRAM Routine 03/19/2021 5:28 Results for this AM EST procedure are i n the results section. DIFFERENTIAL, AUTOMATED Routine 03/19/2021 5:28 R esults for this AM EST procedure are i n the results section. HC CBC,PLT & AUTO DIFF Routine 03/19/2021 5:28 AM EST HC PHOSPHORUS, SERUM Routine 03/19/2021 5:28 Resu lts for this AM EST procedure are i n the results section. HC MAGNESIUM, SERUM Routine 03/19/2021 5:28 Resul ts for this AM EST procedure are i n the results section. HC VENIPUNCTURE Routine 03/19/2021 5:28 Results f or this AM EST procedure are i n the results section. DEBRIDEMENT SKIN AND 03/18/2021 10:35 right leg SUBCU, LOWER EXTREMITY AM EST fasciotomy site (WRVU 1.01) DEBRIDEMENT SKIN AND Routine 03/18/2021 9:38 SUBCU, LOWER EXTREMITY AM EST HC UNFRACTIONATED STAT 03/18/2021 5:43 Results for this HEPARIN (HEP UFH) AM EST procedure are in the results section. HEMOGRAM Routine 03/18/2021 5:43 Results for this AM EST procedure are i n the results section. DIFFERENTIAL, AUTOMATED Routine 03/18/2021 5:43 R esults for this AM EST procedure are i n the results section. HC CBC,PLT & AUTO DIFF Routine 03/18/2021 5:43 AM EST HC PHOSPHORUS, SERUM Routine 03/18/2021 5:43 Resu lts for this AM EST procedure are i n the results section. HC MAGNESIUM, SERUM Routine 03/18/2021 5:43 Resul ts for this AM EST procedure are i n the results section. BASIC METABOLIC PANEL Routine 03/18/2021 5:43 Res ults for this (NON-FASTING) AM EST procedure are in the results section. HC UNFRACTIONATED STAT 03/17/2021 5:39 Results for this HEPARIN (HEP UFH) AM EST procedure are in the results section. HEMOGRAM Routine 03/17/2021 5:39 Results for this AM EST procedure are i n the results section. DIFFERENTIAL, AUTOMATED Routine 03/17/2021 5:39 R esults for this AM EST procedure are i n the results section. HC CBC,PLT & AUTO DIFF Routine 03/17/2021 5:39 AM EST HC PHOSPHORUS, SERUM Routine 03/17/2021 5:39 Resu lts for this AM EST procedure are i n the results section. HC MAGNESIUM, SERUM Routine 03/17/2021 5:39 Resul ts for this AM EST procedure are i n the results section. BASIC METABOLIC PANEL Routine 03/17/2021 5:39 Res ults for this (NON-FASTING) AM EST procedure are in the results section. URINALYSIS WITH REFLEX Routine 03/16/2021 10:39 R esults for this CULTURE PM EST procedure are i n the results section. XR CHEST ONE VIEW Routine 03/16/2021 10:25 Result s for this PM EST procedure are i n the results section. HC BLOOD CULTURE- STAT 03/16/2021 9:06 Results for this PM EST procedure are i n the results section. HC VENIPUNCTURE STAT 03/16/2021 9:06 Results f or this PM EST procedure are i n the results section. HC UNFRACTIONATED STAT 03/16/2021 3:09 Results for this HEPARIN (HEP UFH) AM EST procedure are in the results section. HEMOGRAM Routine 03/16/2021 3:09 Results for this AM EST procedure are i n the results section. DIFFERENTIAL, AUTOMATED Routine 03/16/2021 3:09 R esults for this AM EST procedure are i n the results section. HC CBC,PLT & AUTO DIFF Routine 03/16/2021 3:09 AM EST HC PHOSPHORUS, SERUM Routine 03/16/2021 3:09 Resu lts for this AM EST procedure are i n the results section. HC MAGNESIUM, SERUM Routine 03/16/2021 3:09 Resul ts for this AM EST procedure are i n the results section. HC VENIPUNCTURE Routine 03/16/2021 3:09 Results f or this AM EST procedure are i n the results section. HC VENIPUNCTURE STAT 03/15/2021 8:58 Results f or this PM EST procedure are i n the results section. VS VENOGRAM VASCULAR Routine 03/15/2021 1:50 Resu lts for this SURGERY PM EST procedure are i n the results section. HC UNFRACTIONATED STAT 03/15/2021 1:20 Results for this HEPARIN (HEP UFH) AM EST procedure are in the results section. HEMOGRAM Routine 03/15/2021 12:41 Results for this AM EST procedure are i n the results section. DIFFERENTIAL, AUTOMATED Routine 03/15/2021 12:41 Results for this AM EST procedure are i n the results section. HC CBC,PLT & AUTO DIFF Routine 03/15/2021 12:41 AM EST HC PHOSPHORUS, SERUM Routine 03/15/2021 12:41 Res ults for this AM EST procedure are i n the results section. HC MAGNESIUM, SERUM Routine 03/15/2021 12:41 Resu lts for this AM EST procedure are i n the results section. BASIC METABOLIC PANEL Routine 03/15/2021 12:41 Re sults for this (NON-FASTING) AM EST procedure are in the results section. XR CHEST ONE VIEW STAT 03/15/2021 12:34 Result s for this AM EST procedure are i n the results section. EKG 12-LEAD STAT 03/15/2021 12:26 Acute bilateral Results for this AM EST deep vein procedure are i n thrombosis (DVT) of the resu lts iliac veins of section. lower extremities GREEN TUBE HOLD Routine 03/14/2021 5:47 Results f or this PM EST procedure are i n the results section. HC UNFRACTIONATED STAT 03/14/2021 5:30 Results for this HEPARIN (HEP UFH) PM EST procedure are in the results section. HC CREATINE Routine 03/14/2021 1:05 Results for this PHOSPHOKINASE, SERUM PM EST procedu re are in the results section. CT VENOGRAM ABDOMEN AND STAT 03/14/2021 12:54 Results for this PELVIS PM EST procedure are i n the results section. HC UNFRACTIONATED STAT 03/14/2021 10:40 Result s for this HEPARIN (HEP UFH) AM EST procedure are in the results section. DEBRIDEMENT SKIN, Yes 03/14/2021 8:10 right leg SUBCU, MUSCLE, LOWER AM EST fasciotomy EXTREMITY (WRVU 2.7) DEBRIDEMENT SKIN, Routine 03/14/2021 7:22 SUBCU, MUSCLE, LOWER AM EST EXTREMITY HC UNFRACTIONATED STAT 03/14/2021 4:25 Results for this HEPARIN (HEP UFH) AM EST procedure are in the results section. HC CREATINE Routine 03/14/2021 4:25 Results for this PHOSPHOKINASE, SERUM AM EST procedu re are in the results section. BLUE TUBE HOLD Routine 03/14/2021 3:35 Results fo r this AM EST procedure are i n the results section. HC CREATINE Routine 03/14/2021 2:50 Results for this PHOSPHOKINASE, SERUM AM EST procedu re are in the results section. HEMOGRAM Routine 03/14/2021 12:35 Results for this AM EST procedure are i n the results section. DIFFERENTIAL, AUTOMATED Routine 03/14/2021 12:35 Results for this AM EST procedure are i n the results section. HC CBC,PLT & AUTO DIFF Routine 03/14/2021 12:35 AM EST HC PHOSPHORUS, SERUM Routine 03/14/2021 12:35 Res ults for this AM EST procedure are i n the results section. HC MAGNESIUM, SERUM Routine 03/14/2021 12:35 Resu lts for this AM EST procedure are i n the results section. CK Routine 03/14/2021 12:35 Results for this AM EST procedure are i n the results section. BASIC METABOLIC PANEL Routine 03/14/2021 12:35 Re sults for this (NON-FASTING) AM EST procedure are in the results section. HC VENIPUNCTURE STAT 03/13/2021 9:01 Results f or this PM EST procedure are i n the results section. HEMOGRAM Routine 03/13/2021 9:01 Results for this PM EST procedure are i n the results section. DIFFERENTIAL, AUTOMATED Routine 03/13/2021 9:01 R esults for this PM EST procedure are i n the results section. HC CBC,PLT & AUTO DIFF Routine 03/13/2021 9:01 PM EST HC CREATINE Routine 03/13/2021 5:41 Results for this PHOSPHOKINASE, SERUM PM EST procedu re are in the results section. BASIC METABOLIC PANEL Timed 03/13/2021 5:41 Res ults for this (NON-FASTING) PM EST procedure are in the results section. ECHOCARDIOGRAM COMPLETE Routine 03/13/2021 1:32 Acute bilatera l Results for this W CONTRAST PM EST deep vein procedure are i n thrombosis (DVT) of the resu lts iliac veins of section. 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 HC UNFRACTIONATED STAT 03/13/2021 5:40 Results for this HEPARIN (HEP UFH) AM EST procedure are in the results section. HEMOGRAM Routine 03/13/2021 5:40 Results for this AM EST procedure are i n the results section. DIFFERENTIAL, AUTOMATED Routine 03/13/2021 5:40 R esults for this AM EST procedure are i n the results section. HC CBC,PLT & AUTO DIFF Routine 03/13/2021 5:40 AM EST HC PHOSPHORUS, SERUM Routine 03/13/2021 5:40 Resu lts for this AM EST procedure are i n the results section. HC MAGNESIUM, SERUM Routine 03/13/2021 5:40 Resul ts for this AM EST procedure are i n the results section. HC CREATINE Routine 03/13/2021 5:40 Results for this PHOSPHOKINASE, SERUM AM EST procedu re are in the results section. BASIC METABOLIC PANEL Routine 03/13/2021 5:40 Res ults for this (NON-FASTING) AM EST procedure are in the results section. BLOOD GAS ARTERIAL Routine 03/13/2021 5:35 Result s for this ([facility]) AM EST procedure are i n the results section. HC UNFRACTIONATED STAT 03/13/2021 12:00 Result s for this HEPARIN (HEP UFH) AM EST procedure are in the results section. HEMOGRAM Routine 03/13/2021 12:00 Results for this AM EST procedure are i n the results section. DIFFERENTIAL, AUTOMATED Routine 03/13/2021 12:00 Results for this AM EST procedure are i n the results section. HC CBC,PLT & AUTO DIFF Routine 03/13/2021 12:00 AM EST HC PHOSPHORUS, SERUM Routine 03/13/2021 12:00 Res ults for this AM EST procedure are i n the results section. HC MAGNESIUM, SERUM Routine 03/13/2021 12:00 Resu lts for this AM EST procedure are i n the results section. HC CREATINE Routine 03/13/2021 12:00 Results for this PHOSPHOKINASE, SERUM AM EST procedu re are in the results section. BASIC METABOLIC PANEL Routine 03/13/2021 12:00 Re sults for this (NON-FASTING) AM EST procedure are in the results section. BLOOD GAS ARTERIAL STAT 03/12/2021 11:47 Resul ts for this ([facility]) PM EST procedure are i n the results section. BLOOD GAS 2 ARTERIAL Routine 03/12/2021 5:23 Resu lts for this PM EST procedure are i n the results section. HC UNFRACTIONATED STAT 03/12/2021 4:51 Results for this HEPARIN (HEP UFH) PM EST procedure are in the results section. HEMOGRAM STAT 03/12/2021 4:51 Results for this PM EST procedure are i n the results section. DIFFERENTIAL, AUTOMATED STAT 03/12/2021 4:51 R esults for this PM EST procedure are i n the results section. HC PARTIAL STAT 03/12/2021 4:51 Results for this THROMBOPLASTIN TIME PM EST procedur e are in the results section. HC PROTHROMBIN TIME STAT 03/12/2021 4:51 Resul ts for this PM EST procedure are i n the results section. HC CBC,PLT & AUTO DIFF STAT 03/12/2021 4:51 PM EST HC PHOSPHORUS, SERUM STAT 03/12/2021 4:51 Resu lts for this PM EST procedure are i n the results section. HC MAGNESIUM, SERUM STAT 03/12/2021 4:51 Resul ts for this PM EST procedure are i n the results section. CK STAT 03/12/2021 4:51 Results for this PM EST procedure are i n the results section. BASIC METABOLIC PANEL STAT 03/12/2021 4:51 Res ults for this (NON-FASTING) PM EST procedure are in the results section. PREPARE RBC STAT 03/12/2021 4:40 Results for this PM EST procedure are i n the results section. HC CREATINE Routine 03/12/2021 3:27 Results for this PHOSPHOKINASE, SERUM PM EST procedu re are in the results section. BLOOD GAS 2 ARTERIAL Routine 03/12/2021 12:09 Res ults for this PM EST procedure are i n the results section. IR OR VASC ANGIOGRAM Routine 03/12/2021 12:08 Res ults for this IMAGE STORAGE ONLY PM EST procedure are in the results section. INSERT INTRAVASC VENA 03/12/2021 11:01 phlegmasia CAVA FILTER, ENDOVASCR AM EST APPR, WHEN PERFORMED (WRVU 4.71) FASCIOTOMY, LOWER LEG, 03/12/2021 11:01 phlegmasia ALL COMPARTMENTS -TIFFANY AM EST (WRVU 7.82) THROMBECTOMY, VENA 03/12/2021 11:01 phlegmasia CAVA, ILIAC, AM EST FEMOROPOPLITEAL VEIN BY LEG INCISION (WRVU 13.37) RAPID COVID-19 PCR STAT 03/12/2021 10:40 Resul ts for this ([facility]/APD/[facility]) AM EST procedure are in the results section. PREPARE RBC STAT 03/12/2021 10:15 Results for this AM EST procedure are i n the results section. INSERT INTRAVASC VENA Routine 03/12/2021 9:42 CAVA FILTER, ENDOVASCR AM EST APPR, WHEN PERFORMED FASCIOTOMY, LOWER LEG, Routine 03/12/2021 9:42 TIFFANY, ALL COMPARTMENTS AM EST THROMBECTOMY, VENA Routine 03/12/2021 9:42 CAVA, ILIAC, AM EST FEMOROPOPLITEAL VEIN BY LEG INCISION PRG DUPLEX SCAN STAT 03/12/2021 8:49 IVC thrombosis Results for this EXTREMITY VEIN INCL AM EST procedur e are in RESPONSE COMPRESS; the resul ts UNILAT/LMTD section. CT VENOGRAM ABDOMEN AND STAT 03/12/2021 8:12 R esults for this PELVIS AM EST procedure are i n the results section. CT CHEST PULMONARY STAT 03/12/2021 8:12 Result s for this EMBOLISM W CONTRAST AM EST procedur e are in the results section. REQUEST FOR 2ND READ CT STAT 03/12/2021 6:27 R esults for this ABDOMEN AND PELVIS AM EST procedure are in the results section. EKG 12-LEAD STAT 03/12/2021 5:17 Results for this AM EST procedure are i n the results section. BLOOD GAS 2 VENOUS Routine 03/12/2021 5:13 Result s for this AM EST procedure are i n the results section. BILIRUBIN, DIRECT STAT 03/12/2021 5:11 Results for this AM EST procedure are i n the results section. HEMOGRAM STAT 03/12/2021 5:11 Results for this AM EST procedure are i n the results section. DIFFERENTIAL, AUTOMATED STAT 03/12/2021 5:11 R esults for this AM EST procedure are i n the results section. HC CBC,PLT & AUTO DIFF STAT 03/12/2021 5:11 AM EST COMPREHENSIVE METABOLIC STAT 03/12/2021 5:11 R esults for this PANEL (NON-FASTING) AM EST procedur e are in the results section. TYPE AND SCREEN STAT 03/12/2021 5:10 Results f or this VALIDITY AM EST procedure are i n the results section. ABORH RECHECK STATUS STAT 03/12/2021 5:10 Resu lts for this AM EST procedure are i n the results section. ABO/RH TYPING STAT 03/12/2021 5:10 Results for this AM EST procedure are i n the results section. ANTIBODY SCREEN STAT 03/12/2021 5:10 Results f or this AM EST procedure are i n the results section. HC ANTIBODY STAT 03/12/2021 5:10 DETECTION,CAPTURE-R AM EST FILM LIBRARY STORAGE STAT 02/21/2021 12:00 Res ults for this ONLY CT ABDOMEN AND AM EST procedur e are in PELVIS the results section. IMPLANTABLE DEVICES 03/12/2020 12:00 SCAN AM EST documented in this encounter Results Duplex Study for DVT, Bilat legs (04/26/2021 8:00 AM EST) Component Value Ref Test Analysis Performed At [facility] coComment Range Method Time Signature VB Text Department: Vascular Surgery Lab VASCU[facility] Report Patient: [id number] (AMILCAR PATE) CPT: 23313 Referring Physician: MARLENE RODRÍGUEZ ?? Indications: Patient with h/o right DVT, [...] lab databas e for comparison. Notification: Dr. Rodríguez was informed of these preliminary f indings. Electronically Signed by: MARLENE RODRÍGUEZ on 2021-04-30 07:40 :07 AM VB Text End of Report VASCUBASE Report Specimen (Source) Anatomical Collection Method Collection Time Re ceived Time Location / / Volume Laterality 04/26/2021 8:00 AM EST Marlene Rodríguez MD VASCULAR ORDERABLES Performing Organization Address City/State/ZIP Code Phon e Number [facility] (ABNORMAL) Differential, Automated (03/19/2021 5:28 AM EST) [facility] gist Method Time Signature Neutrophils % 66.1 % [facility] Neutr Abs (ANC) 5.44 1.70 - [facility] 6.10 [facility] x10(3)/[facility] LABORATORY Lymphocytes % 18.0 % [facility] Lymphocytes Abs 1.5 0.9 - 3.2 [facility] x10(3)/[facility] LABORATORY Monocytes % 12.0 % [facility] Monocyte Abs 1.0 (H) 0.3 - 0.9 [facility] x10(3)/[facility] LABORATORY Eosinophils % 2.3 % [facility] Eosinophils Abs 0.2 0.0 - 0.4 [facility] x10(3)/[facility] LABORATORY Basophils % 0.5 % [facility] Basophils Abs 0.0 0.0 - 0.1 [facility] x10(3)/[facility] LABORATORY Immature Gran % 1.10 % [facility] Comment: Immature granulocytes(IG's)percentage an d absolute count will include metamyelocytes, myelocytes, and promyelo cytes. Blood smears from CBCs yielding IG's will be scanned manually for concor dance. If this scan disagrees with the automated IG or if promyelocytes are not ed, a manual differential will be performed. Lata Gran Abs 0.09 (H) 0.00 - 0.04 x10(3)/[facility] LABORATORY Specimen Anatomical Collection Method Collection Time Receive d Time (Source) Location / / Volume Laterality Blood 03/19/2021 5:28 AM 5:43 EST AM EST Resulting Agency Comment Spec In Lab Cristina Amador MD HEMATOLOGY ORDERABLES Performing Organization Address City/State/[place] [address] (ABNORMAL) Hemogram (03/19/2021 5:28 AM EST) Analysis Performed At Patho logist Time Signature WBC 8.2 4.0 - 9.5 [facility] x10(3)/[facility] LABORATORY RBC 3.07 (L) 4.58 - [facility] 5.54 [facility] x10(6)/[facility] LABORATORY Hemoglobin 8.9 (L) 13.7 - [facility]/dL [facility] Hematocrit 27.9 (L) 40.5 - [facility] 48.5 % [facility] MCV 90.9 82.9 - [facility] 93.1 [facility] MCH 29.0 27.5 - [facility] 32[facility]1 pg [facility] MCHC 31.9 (L) 32.0 - [facility] 35.7 g/dL [facility] Platelets 403 (H) 145 - 357 [facility] x10(3)/[facility] LABORATORY RDWSD 43.8 36.0 - [facility] 45.0 [facility] RDWCV 13.3 11.4 - [facility] 13.8 % [facility] MPV 9.3 7.6 - 12.9 [facility] LABORATORY nRBC % Auto 0.0 % [facility] nRBC Abs Auto 0.000 0.000 - [facility] 0.000 [facility] x10(3)/[facility] LABORATORY Specimen Anatomical Collection Method Collection Time Receive d Time (Source) Location / / Volume Laterality Blood 03/19/2021 5:28 AM 2 5:43 EST AM EST Resulting Agency Comment Spec In Lab Cristina Amador MD HEMATOLOGY ORDERABLES Performing Organization Address City/[facility]/ZIP Code Phon e Number [address] Phosphorus (03/19/2021 5:28 AM EST) P athologist Signature Phosphorus 4.0 2.5 - 4.5 [place] CHANG mg/dL [facility] Specimen Anatomical Collection Method Collection Time Receive d Time (Source) Location / / Volume Laterality Blood 03/19/2021 5:28 AM 2 5:43 EST AM EST Resulting Agency Comment Spec In Lab Marlene Rodríguez MD CHEMISTRY ORDERABLES Performing Organization Address City/[facility]/ZIP Code Phon e Number [address] Magnesium (03/19/2021 5:28 AM EST) P athologist Signature Magnesium 0.91 0.69 - 1.07 [facility] CHANG mmol/L [facility] Specimen Anatomical Collection Method Collection Time Receive d Time (Source) Location / / Volume Laterality Blood 03/19/2021 5:28 AM 2 5:43 EST AM EST Resulting Agency Comment Spec In Lab Marlene Rodríguez MD CHEMISTRY ORDERABLES Performing Organization Address City/[facility]/ZIP Code Phon e Number [address] (ABNORMAL) Basic Metabolic Panel (non-fasting) (03/19/2021 5:28 AM EST) P athologist Signature Glucose Lvl 117 65 - 199 [facility] mg/dL [facility] Comment: Diabetes: >=200 mg/dL plus symp toms BUN 12 10 - 20 mg/dL [facility] Creatinine 0.63 (L) 0.80 - 1.50 mg/dL [facility] Sodium 139 135 - 145 mmol/L [facility] Potassium 3.7 3.5 - 5.0 mmol/L [facility] Comment: Please note: ??Patients with WBC >100,00 0 may have falsely elevated Potassium levels. ??For accurate Potassium quantif ication in these patients send serum separator tube (gold top) for subsequent determinations. ??Contact the Clinical Chemistry Laboratory if there are any qu estions. Chloride 103 98 - 107 mmol/L [facility] CO2 23 22 - 31 mmol/L [facility] Anion Gap 13 5 - 15 mmol/L [facility] Calcium 8.9 8.5 - 10.5 mg/dL [facility] Estimated GFR 106 >=60 mL/min/1.73 m?? [facility] Comment: This patient? s estimated glomerular filtration rate (eGFR) is between 106 mL/min/1.73 m2 (patients with less muscl e mass per kg body weight) and 123 mL/min/1.73 m2 (patients with more muscl e [...] (Source) Location / / Volume Laterality Blood 03/19/2021 5:28 AM 2 5:43 EST AM EST Resulting Agency Comment Spec In Lab Marlene Rodríguez MD CHEMISTRY ORDERABLES Performing Organization Address City/State/ZIP [place] [address] (ABNORMAL) Differential, Automated (03/18/2021 5:43 AM EST) Patholo gist Method Time Signature Neutrophils % 66.5 % [facility] Neutr Abs (ANC) 6.74 (H) 1.70 - [facility] 6.10 [facility] x10(3)/[facility] LABORATORY Lymphocytes % 19.8 % [facility] LABORATORY Lymphocytes Abs 2.0 0.9 - 3.2 [facility] x10(3)/[facility] LABORATORY Monocytes % 10.4 % [facility] LABORATORY Monocyte Abs 1.0 (H) 0.3 - 0.9 [facility] x10(3)/[facility] LABORATORY Eosinophils % 2.3 % [facility] LABORATORY Eosinophils Abs 0.2 0.0 - 0.4 [facility] x10(3)/[facility] LABORATORY Basophils % 0.4 % [facility] LABORATORY Basophils Abs 0.0 0.0 - 0.1 [facility] x10(3)/[facility] LABORATORY Immature Gran % 0.60 % [facility] LABORATORY Comment: Immature granulocytes(IG's)percentage an d absolute count will include metamyelocytes, myelocytes, and promyelo cytes. Blood smears from CBCs yielding IG's will be scanned manually for concor dance. If this scan disagrees with the automated IG or if promyelocytes are not ed, a manual differential will be performed. Lata Gran Abs 0.06 (H) 0.00 - 0.04 x10(3)/[facility] LABORATORY Specimen Anatomical Collection Method Collection Time Receive d Time (Source) Location / / Volume Laterality Blood 03/18/2021 5:43 AM 6:14 EST AM EST Resulting Agency Comment Spec In Lab Cristina Amador MD HEMATOLOGY ORDERABLES Performing Organization Address City/State/[place] [address] (ABNORMAL) Hemogram (03/18/2021 5:43 AM EST) Analysis Performed At Patho logist Time Signature WBC 10.1 (H) 4.0 - 9.5 [facility] x10(3)/[facility] LABORATORY RBC 3.22 (L) 4.58 - [facility] 5.54 [facility] x10(6)/[facility] LABORATORY Hemoglobin 9.3 (L) 13.7 - [facility] LABORATORY Hematocrit 28.4 (L) 40.5 - [facility] 48.5 % [facility] LABORATORY MCV 88.2 82.9 - [facility].1 [facility] LABORATORY MCH 28.9 27.5 - [facility] 32.1 pg [facility] LABORATORY MCHC 32.7 32.0 - [facility] g/dL [facility] LABORATORY Platelets 390 (H) 145 - 357 [facility] x10(3)/[facility] LABORATORY RDWSD 41.8 36.0 - [facility] 45.0 [facility] LABORATORY RDWCV 13.1 11.4 - [facility] 13.8 % [facility] LABORATORY MPV 9.9 7.6 - 12.9 [facility] LABORATORY nRBC % Auto 0.0 % [facility] LABORATORY nRBC Abs Auto 0.000 0.000 - [facility] 0.000 [facility] x10(3)/[facility] LABORATORY Specimen Anatomical Collection Method Collection Time Receive d Time (Source) Location / / Volume Laterality Blood 03/18/2021 5:43 AM 2 6:14 EST AM EST Resulting Agency Comment Spec In Lab Cristina Amador MD HEMATOLOGY ORDERABLES Performing Organization Address City/State/[place] [address] Phosphorus (03/18/2021 5:43 AM EST) P athologist Signature Phosphorus 4.0 2.5 - 4.5 [facility] mg/dL [facility] LABORATORY Specimen Anatomical Collection Method Collection Time Receive d Time (Source) Location / / Volume Laterality Blood 03/18/2021 5:43 AM 2 6:14 EST AM EST Resulting Agency Comment Spec In Lab Marlene Rodríguez MD CHEMISTRY ORDERABLES Performing Organization Address City/State/ZIP Code Phon e Number [address] Magnesium (03/18/2021 5:43 AM EST) P athologist Signature Magnesium 0.87 0.69 - 1.07 [facility] mmol/L [facility] LABORATORY Specimen Anatomical Collection Method Collection Time Receive d Time (Source) Location / / Volume Laterality Blood 03/18/2021 5:43 AM 6:14 EST AM EST Resulting Agency Comment Spec In Lab Marlene Rodríguez MD CHEMISTRY ORDERABLES Performing Organization Address City/[facility]/ZIP Code Phon e Number [address] (ABNORMAL) Basic Metabolic Panel (non-fasting) (03/18/2021 5:43 AM EST) athologist Signature Glucose Lvl 122 65 - 199 [facility] mg/dL [facility] LABORATORY Comment: Diabetes: >=200 mg/dL plus symp toms BUN 11 10 - 20 mg/dL [facility] LABORATORY Creatinine 0.60 (L) 0.80 - 1.50 mg/dL [facility] LABORATORY Sodium 136 135 - 145 mmol/L [facility] LABORATORY Potassium 3.7 3.5 - 5.0 mmol/L [facility] LABORATORY Comment: Please note: ??Patients with WBC >100,00 0 may have falsely elevated Potassium levels. ??For accurate Potassium quantif ication in these patients send serum separator tube (gold top) for subsequent determinations. ??Contact the Clinical Chemistry Laboratory if there are any qu estions. Chloride 103 98 - 107 mmol/L [facility] LABORATORY CO2 21 (L) 22 - 31 mmol/L [facility] LABORATORY Anion Gap 12 5 - 15 mmol/L [facility] LABORATORY Calcium 9.2 8.5 - 10.5 mg/dL [facility] LABORATORY Estimated GFR 109 >=60 mL/min/1.73 m?? [facility] LABORATORY Comment: This patient? s estimated glomerular filtration rate (eGFR) is between 109 mL/min/1.73 m2 (patients with less muscl e mass per kg body weight) and 126 mL/min/1.73 m2 (patients with more muscl e [...] (Source) Location / / Volume Laterality Blood 03/18/2021 5:43 AM 2 6:14 EST AM EST Resulting Agency Comment Spec In Lab Marlene Rodríguez MD CHEMISTRY ORDERABLES Performing Organization Address City/[facility]/ZIP [facility] [place] [address] Heparin (unfractionated) Level (03/18/2021 5:43 AM EST) P athologist Signature Heparin UFH 0.43 IU/mL [facility] LABORATORY Comment: Heparin (anti-Xa) levels should [...] (Source) Location / / Volume Laterality Blood 03/18/2021 5:43 AM 2 6:14 EST AM EST Resulting Agency Comment Spec In Lab Marlene Rodríguez MD HEMATOLOGY ORDERABLES Performing Organization Address City/State/[place] [address] (ABNORMAL) Differential, Automated (03/17/2021 5:39 AM EST) [employer] Method Time Signature Neutrophils % 69.1 % [facility] LABORATORY Neutr Abs (ANC) 6.64 (H) 1.70 - [facility] 6.10 [facility] x10(3)/[facility] LABORATORY Lymphocytes % 17.9 % [facility] LABORATORY Lymphocytes Abs 1.7 0.9 - 3.2 [facility] x10(3)/[facility] LABORATORY Monocytes % 10.2 % [facility] LABORATORY Monocyte Abs 1.0 (H) 0.3 - 0.9 [facility] x10(3)/[facility] LABORATORY Eosinophils % 2.2 % [facility] LABORATORY Eosinophils Abs 0.2 0.0 - 0.4 [facility] x10(3)/[facility] LABORATORY Basophils % 0.3 % [facility] LABORATORY Basophils Abs 0.0 0.0 - 0.1 [facility] x10(3)/[facility] LABORATORY Immature Gran % 0.30 % [facility] LABORATORY Comment: Immature granulocytes(IG's)percentage an d absolute count will include metamyelocytes, myelocytes, and promyelo cytes. Blood smears from CBCs yielding IG's will be scanned manually for concor dance. If this scan disagrees with the automated IG or if promyelocytes are not ed, a manual differential will be performed. Lata Gran Abs 0.03 0.00 - 0.04 x10(3)/[facility] LABORATORY Specimen Anatomical Collection Method Collection Time Receive d Time (Source) Location / / Volume Laterality Blood 03/17/2021 5:39 AM 5:59 EST AM EST Resulting Agency Comment Spec In Lab Cristina Amador MD HEMATOLOGY ORDERABLES Performing Organization Address City/[facility]/ZIP [place] [address] (ABNORMAL) Hemogram (03/17/2021 5:39 AM EST) Analysis Performed At Patho logist Time Signature WBC 9.6 (H) 4.0 - 9.5 [facility] x10(3)/[facility] LABORATORY RBC 3.00 (L) 4.58 - [facility] 5.54 [facility] x10(6)/[facility] LABORATORY Hemoglobin 8.8 (L) 13.7 - [facility] g/dL [facility] LABORATORY Hematocrit 26.6 (L) 40.5 - [facility] 48.5 % [facility] LABORATORY MCV 88.7 82.9 - [facility] 93.1 [facility] LABORATORY MCH 29.3 27.5 - [facility] 32.1 pg [facility] LABORATORY MCHC 33.1 32.0 - [facility] 35.7 g/dL [facility] LABORATORY Platelets 333 145 - 357 [facility] x10(3)/[facility] LABORATORY RDWSD 42.0 36.0 - [facility] 45.0 [facility] LABORATORY RDWCV 13.1 11.4 - [facility] 13.8 % [facility] LABORATORY MPV 9.5 7.6 - 12.9 [facility] LABORATORY nRBC % Auto 0.0 % [facility] LABORATORY nRBC Abs Auto 0.000 0.000 - [facility] 0.000 [facility] x10(3)/[facility] LABORATORY Specimen Anatomical Collection Method Collection Time Receive d Time (Source) Location / / Volume Laterality Blood 03/17/2021 5:39 AM 2 5:59 EST AM EST Resulting Agency Comment Spec In Lab Cristina Amador MD HEMATOLOGY ORDERABLES Performing Organization Address City/State/[place] [address] Phosphorus (03/17/2021 5:39 AM EST) P athologist Signature Phosphorus 4.2 2.5 - 4.5 [facility] mg/dL [facility] LABORATORY Specimen Anatomical Collection Method Collection Time Receive d Time (Source) Location / / Volume Laterality Blood 03/17/2021 5:39 AM 2 5:59 EST AM EST Resulting Agency Comment Spec In Lab Marlene Rodríguez MD CHEMISTRY ORDERABLES Performing Organization Address City/[facility]/ZIP Code Phon e Number [address] Magnesium (03/17/2021 5:39 AM EST) P athologist Signature Magnesium 0.90 0.69 - 1.07 [facility] mmol/L [facility] LABORATORY Specimen Anatomical Collection Method Collection Time Receive d Time (Source) Location / / Volume Laterality Blood 03/17/2021 5:39 AM 2 5:59 EST AM EST Resulting Agency Comment Spec In Lab Marlene Rodríguez MD CHEMISTRY ORDERABLES Performing Organization Address [facility] Phon e Number [address] Heparin (unfractionated) Level (03/17/2021 5:39 AM EST) athologist Signature Heparin UFH 0.39 IU/mL [facility] LABORATORY Comment: Heparin (anti-Xa) levels should [...] (Source) Location / / Volume Laterality Blood 03/17/2021 5:39 AM 2 5:59 EST AM EST Resulting Agency Comment Spec In Lab Marlene Rodríguez MD HEMATOLOGY ORDERABLES Performing Organization Address City/[facility]/ZIP [facility] Phon e Number [address] (ABNORMAL) Basic Metabolic Panel (non-fasting) (03/17/2021 5:39 AM EST) P athologist Signature Glucose Lvl 130 65 - 199 [facility] mg/dL [facility] LABORATORY Comment: Diabetes: >=200 mg/dL plus symp toms BUN 10 10 - 20 mg/dL [facility] LABORATORY Creatinine 0.63 (L) 0.80 - 1.50 mg/dL [facility] LABORATORY Sodium 136 135 - 145 mmol/L [facility] LABORATORY Potassium 3.8 3.5 - 5.0 mmol/L [facility] LABORATORY Comment: Please note: ??Patients with WBC >100,00 0 may have falsely elevated Potassium levels. ??For accurate Potassium quantif ication in these patients send serum separator tube (gold top) for subsequent determinations. ??Contact the Clinical Chemistry Laboratory if there are any qu estions. Chloride 104 98 - 107 mmol/L [facility] LABORATORY CO2 24 22 - 31 mmol/L [facility] LABORATORY Anion Gap 8 5 - 15 mmol/L [facility] LABORATORY Calcium 9.1 8.5 - 10.5 mg/dL [facility] LABORATORY Estimated GFR 106 >=60 mL/min/1.73 m?? [facility] LABORATORY Comment: This patient? s estimated glomerular filtration rate (eGFR) is between 106 mL/min/1.73 m2 (patients with less muscl e mass per kg body weight) and 123 mL/min/1.73 m2 (patients with more muscl e [...] (Source) Location / / Volume Laterality Blood 03/17/2021 5:39 AM 2 5:59 EST AM EST Resulting Agency Comment Spec In Lab Marlene Rodríguez MD CHEMISTRY ORDERABLES Performing Organization Address City/State/Z[place] [address] Urinalysis with reflex Culture (03/16/2021 10:39 PM EST) [facility] gist Method Time Signature Glucose UA Negative Negative [facility] mg/dL [facility] LABORATORY Protein UA Negative Negative [facility] mg/dL [facility] LABORATORY Bilirubin UA Negative Negative [facility]/dL [facility] LABORATORY Comment: Clinical correlation required for positi ve Urine Bilirubin results as false positive may occur with some drugs and d rug related products. If a false positive is suspected a serum total bili shahid should be considered if clinically indicated. Urobilinogen UA Normal Normal mg/dL [facility] LABORATORY pH UA 7.5 5.0 - 8.0 [facility] LABORATORY Blood UA Negative Negative mg/dL [facility] LABORATORY Ketones UA Negative Negative mg/dL [facility] LABORATORY Nitrite UA Negative Negative [facility] LABORATORY Leukocytes UA Negative Negative [facility] LABORATORY Appearance UA Clear Clear [facility] LABORATORY Spec Cook Sta UA 1.007 1.005 - 1.030 [facility] LABORATORY Color UA Yellow Yellow [facility] LABORATORY Culture Reflexed No [facility] LABORATORY Specimen Anatomical Collection Method Collection Time Receive d Time (Source) Location / / Volume Laterality Clean Catch 03/16/2021 10:39 03/16/2021 Urine PM EST 11:04 PM EST Resulting Agency Comment Spec In Lab Marlene Rodríguez MD URINE ORDERABLES Performing Organization Address City/[facility]/ZIP [place] [address] XR Chest One View (03/16/2021 10:25 PM EST) Anatomical Region Laterality Modality Chest N/A Digital Radiography Specimen (Source) Anatomical Location Collection Method / Collectio n Time Received Time / Laterality Volume Impressions 03/16/2021 10:29 PM EST No acute cardiopulmonary process. Thank you for letting us participate in the care of this patient. ??If you are a health care provider and have any questi ons regarding this report, please contact the number below. ??For patients who have questions please contact the health director long term care that requested your imaging first. ? Electronically signed by: Lalo Martinez, [facility] ([phone]), at 03/16/2021 10:29 PM Narrative 03/16/2021 10:29 PM EST EXAMINATION: XR CHEST ONE VIEW CLINICAL HISTORY: febrile TECHNIQUE: 1 view of the chest COMPARISON: Chest radiograph, March 15, 2021 FINDINGS: Slightly low lung volumes. Lungs are maranda ar and without focal consolidation. No pleural effusion or pneumothorax. The ca rdiomediastinal silhouette and pulmonary vasculature are normal. No acute osseous findings. Procedure Note Terri Butcher MD - 03/16/2021 EXAMINATION: XR CHEST ONE VIEW CLINICAL HISTORY: febrile TECHNIQUE: 1 view of the chest COMPARISON: Chest radiograph, March 15, 2021 FINDINGS: Slightly low lung volumes. Lungs are maranda ar and without focal consolidation. No pleural effusion or pneumothorax. The ca rdiomediastinal silhouette and pulmonary vasculature are normal. No acute osseous findings. IMPRESSION No acute cardiopulmonary process. Thank you for letting us participate in the care of this patient. If you are a health care provider and have any questi ons regarding this report, please contact the number below. For patients w ho have questions please contact the health director long term care that requested your imaging first. Electronically signed by: Lalo Martinez, [facility] ([phone]), at 03/16/2021 10:29 PM Marlene Rodríguez MD IMG DX ORDERABLES Blood culture (03/16/2021 9:06 PM EST) [employer] Method Time Signature Blood Culture No growth [facility] DOWNING at 5 days. [facility] LABORATORY Specimen Anatomical Collection Method Collection Time Receive d Time (Source) Location / / Volume Laterality Blood STRUCTURE OF RIGHT 03/16/2021 9:06 PM 9:53 HAND / Unknown EST PM EST Resulting Agency Comment Spec In Lab Marlene Rodríguez MD MICROBIOLOGY - BLOOD ORDERAB LES Performing Organization Address City/State/[place] [address] Blood culture (03/16/2021 9:06 PM EST) [employer] Method Time Signature Blood Culture No growth [facility] DOWNING at 5 days. [facility] LABORATORY Specimen Anatomical Collection Method Collection Time Receive d Time (Source) Location / / Volume Laterality Blood STRUCTURE OF LEFT 03/16/2021 9:06 PM 03/02 9:52 HAND / Unknown EST PM EST Resulting Agency Comment Spec In Lab Marlene Rodríguez MD MICROBIOLOGY - BLOOD ORDERAB LES Performing Organization Address City/[facility]/ZIP [place] [address] Heparin (unfractionated) Level (03/16/2021 3:09 AM EST) P athologist Signature Heparin UFH 0.50 IU/mL [facility] LABORATORY Comment: Heparin (anti-Xa) levels should [...] (Source) Location / / Volume Laterality Blood 03/16/2021 3:09 AM 01/15/202 2 3:13 EST AM EST Resulting Agency Comment Spec In Lab Marlene Rodríguez MD HEMATOLOGY ORDERABLES Performing Organization Address City/State/Z[place] [address] (ABNORMAL) Differential, Automated (03/16/2021 3:09 AM EST) [employer] Method Time Signature Neutrophils % 75.9 % [facility] LABORATORY Neutr Abs (ANC) 7.08 (H) 1.70 - [facility] 6.10 [facility] x10(3)/[facility] LABORATORY Lymphocytes % 13.6 % [facility] LABORATORY Lymphocytes Abs 1.3 0.9 - 3.2 [facility] x10(3)/[facility] LABORATORY Monocytes % 7.7 % [facility] LABORATORY Monocyte Abs 0.7 0.3 - 0.9 [facility] x10(3)/[facility] LABORATORY Eosinophils % 1.9 % [facility] LABORATORY Eosinophils Abs 0.2 0.0 - 0.4 [facility] x10(3)/[facility] LABORATORY Basophils % 0.2 % [facility] LABORATORY Basophils Abs 0.0 0.0 - 0.1 [facility] x10(3)/[facility] LABORATORY Immature Gran % 0.70 % [facility] LABORATORY Comment: Immature granulocytes(IG's)percentage an d absolute count will include metamyelocytes, myelocytes, and promyelo cytes. Blood smears from CBCs yielding IG's will be scanned manually for concor dance. If this scan disagrees with the automated IG or if promyelocytes are not ed, a manual differential will be performed. Lata Gran Abs 0.07 (H) 0.00 - 0.04 x10(3)/[facility] LABORATORY Specimen Anatomical Collection Method Collection Time Receive d Time (Source) Location / / Volume Laterality Blood 03/16/2021 3:09 AM 2 3:13 EST AM EST Resulting Agency Comment Spec In Lab Cristina Amador MD HEMATOLOGY ORDERABLES Performing Organization Address City/State/Z[place] [address] (ABNORMAL) Hemogram (03/16/2021 3:09 AM EST) Analysis Performed At Patho logist Time Signature WBC 9.3 4.0 - 9.5 [facility] x10(3)/[facility] LABORATORY RBC 2.92 (L) 4.58 - [facility] CHANG 5.54 [facility] x10(6)/[facility] LABORATORY Hemoglobin 8.6 (L) 13.7 - [facility] g/dL [facility] LABORATORY Hematocrit 26.0 (L) 40.5 - [facility] CHANG 48.5 % [facility] LABORATORY MCV 89.0 82.9 - [facility] CHANG 93.1 [facility] LABORATORY MCH 29.5 27.5 - [facility] CHANG 32.1 pg [facility] LABORATORY MCHC 33.1 32.0 - [facility] CHANG 35.7 g/dL [facility] LABORATORY Platelets 292 145 - 357 [facility] x10(3)/[facility] LABORATORY RDWSD 41.7 36.0 - [facility] CHANG 45.0 [facility] LABORATORY RDWCV 12.8 11.4 - [facility] 13.8 % [facility] LABORATORY MPV 9.4 7.6 - 12.9 [facility] LABORATORY nRBC % Auto 0.0 % [facility] LABORATORY nRBC Abs Auto 0.000 0.000 - [facility] CHANG 0.000 [facility] x10(3)/[facility] LABORATORY Specimen Anatomical Collection Method Collection Time Receive d Time (Source) Location / / Volume Laterality Blood 03/16/2021 3:09 AM 3:13 EST AM EST Resulting Agency Comment Spec In Lab Cristina Amador MD HEMATOLOGY ORDERABLES Performing Organization Address City/State/Z[place] [address] Phosphorus (03/16/2021 3:09 AM EST) P athologist Signature Phosphorus 3.4 2.5 - 4.5 [facility] mg/dL [facility] LABORATORY Specimen Anatomical Collection Method Collection Time Receive d Time (Source) Location / / Volume Laterality Blood 03/16/2021 3:09 AM 2 3:13 EST AM EST Resulting Agency Comment Spec In Lab Marlene Rodríguez MD CHEMISTRY ORDERABLES Performing Organization Address City/[facility]/ZIP Code Phon e Number [address] Magnesium (03/16/2021 3:09 AM EST) athologist Signature Magnesium 0.86 0.69 - 1.07 [facility] mmol/L [facility] LABORATORY Specimen Anatomical Collection Method Collection Time Receive d Time (Source) Location / / Volume Laterality Blood 03/16/2021 3:09 AM 2 3:13 EST AM EST Resulting Agency Comment Spec In Lab Marlene Rodríguez MD CHEMISTRY ORDERABLES Performing Organization Address City/[facility] [place] [address] (ABNORMAL) Basic Metabolic Panel (non-fasting) (03/16/2021 3:09 AM EST) athologist Signature Glucose Lvl 118 65 - 199 [facility] mg/dL [facility] LABORATORY Comment: Diabetes: >=200 mg/dL plus symp toms BUN 13 10 - 20 mg/dL [facility] LABORATORY Creatinine 0.61 (L) 0.80 - 1.50 mg/dL [facility] LABORATORY Sodium 137 135 - 145 mmol/L [facility] LABORATORY Potassium 4.2 3.5 - 5.0 mmol/L [facility] LABORATORY Comment: Please note: ??Patients with WBC >100,00 0 may have falsely elevated Potassium levels. ??For accurate Potassium quantif ication in these patients send serum separator tube (gold top) for subsequent determinations. ??Contact the Clinical Chemistry Laboratory if there are any qu estions. Chloride 103 98 - 107 mmol/L [facility] CO2 25 22 - 31 mmol/L [facility] Anion Gap 9 5 - 15 mmol/L [facility] Calcium 8.6 8.5 - 10.5 mg/dL [facility] Estimated GFR 108 >=60 mL/min/1.73 m?? [facility] Comment: This patient? s estimated glomerular filtration rate (eGFR) is between 108 mL/min/1.73 m2 (patients with less muscl e mass per kg body weight) and 125 mL/min/1.73 m2 (patients with more muscl e [...] (Source) Location / / Volume Laterality Blood 03/16/2021 3:09 AM 3:13 EST AM EST Resulting Agency Comment Spec In Lab Marlene Rodríguez MD CHEMISTRY ORDERABLES Performing Organization Address City/State/[place] [address] Heparin (unfractionated) Level (03/15/2021 8:58 PM EST) P athologist Signature Heparin UFH 0.62 IU/mL [facility] Comment: Heparin (anti-Xa) levels should [...] (Source) Location / / Volume Laterality Blood 03/15/2021 8:58 PM 9:02 EST PM EST Resulting Agency Comment Spec In Lab Marlene Rodríguez MD HEMATOLOGY ORDERABLES Performing Organization Address City/State/[place] [address] VS Venogram Vascular Surgery (03/15/2021 1:50 PM EST) Anatomical Region Laterality Modality X-Ray Angiography Specimen (Source) Anatomical Location Collection Method / Collectio n Time Received Time / Laterality Volume Narrative 03/19/2021 1:46 PM EST Attestation signed by Marlene Rodríguez MD at 03/17/2021 ??8:48 AM Attending Attestation I was the attending physician supervisin g the resident/fellow in the above care and I was present with the resident/fell ow for the entire procedure. I was present during the intraservice ti me as documented by the sedation RN. Vascular Surgery Interventional Procedur e Note Date of procedure: 03/15/21 Pre-Procedure Diagnosis: LLE iliofemoral DVT Post-Procedure Diagnosis: LLE iliofemora l DVT Procedure: - Left common femoral vein access with f luoroscopic and ultrasound guidance - LLE venogram - Selective catheterization of IVC - Angiojet pharmacomechanical thrombecto my with powerpulse of left common and external iliac veins - Left common iliac vein stent placement (Express [id number], post-dilated to 12mm) - Left common and external iliac vein st ent placement (Wallstent [id number]) - US guided right internal jugular vein access - IVC venogram - Retrieval of IVC filter - Perclose closure of left common femora l vein, manual pressure closure of right IJ vein Surgeon(s): MD Marlene Liu MD Intra-procedural Medications: Versed dose: 6 mg Fentanyl dose: 5000 mcg Local anesthetic: 16 cc 1% lidocaine Heparin: 16,000 Units Protamine: No Alteplase: 10 mg Antibiotics: ancef 2g Fluoro Time: 33.1 min min Contrast: 200 mL Sheath Size: 10 Fr sheath in L CFV; 13 F r sheath in R IJ vein Indications for the procedure: Mr Pate is a 60M who presented with 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 He is s/p suprarenal IVC filter placement and mechanical thrombectomy of IVC and R iliac veins. Plan for LLE venogram and interventions as indicated Findings: - LLE venogram: extensive DVT burden in common and external iliac veins - Intervention: Angiojet pharmacomechani emilee thrombectomy with powerpulse of left common and external iliac veins, Left co mmon iliac vein stent placement (Express [id number], post-dilated to 12mm), Left com mon and external iliac vein stent placement (Wallstent [id number]); - IVC venogram: suprarenal IVC filter in place without clot burden within filter - Intervention: IVC filter removal Procedure in detail: ?The patient was proper ly identified in the pre-operative holding area. After discussions of the risks and benefits, operative consent was obtained. The patient was brought to the angiography suite and placed on the angio table. The patient was prepped and draped in the usual sterile fashion. A time-out was performed by the attending surgeon confirming the patient, the intended procedure, the side of interven tion and equipment needed. Split doses of fentanyl and versed were administered for conscious sedation by the Interventional Radiology nurse ??during continuous monitoring of pulse, blood pressure and oxygen saturation. After in jection of local anesthetic, percutaneous access was obtained via the left common femoral vein under fluoroscopic and ultrasound guidance usi ng a micro puncture technique. A cope wire was inserted and upsized to a 5 Jeffery nch sheath over a J-wire. A LLE venogram was obtained with the above findings. A stiff glidewire was advanced to the proximal common iliac vein. A dipti alexander ter and 018 Victory wire 30g was used to advance through the struts of the existi ng wallstent and advance into the IVC. A leonel 6x60mm balloon was used to dila te the struts of the wallstent, however we were still unable to advance a cathet er over the wire into the IVC. A V14 wire was then inserted as a yasmine wire a nd advanced into the IVC. With this extra support, sheath exchange was perfo rmed for a 7Fr 45cm destination sheath, which was advanced to the proximal commo n iliac vein. A Richmond 5x40mm balloon was used to dilate the struts, and when the balloon was deflated the sheath was advanced into the IVC. An Express 10x37m m balloon expandable stent was deployed in the proximal left common iliac vein, extending through the struts of the right iliac wallstent into the IVC. This was post-dilated to 12mm. Next, the sheath was upsized to a 9Fr sheath. Kelli ojet pharmacomechanical thrombectomy with powerpulse (10mg tPA) was performed of the left common and external iliac veins. We then upsized the sheath to a 1 0Fr sheath. A 15r20yl wallstent was deployed in the left common and external iliac veins. A completion venogram was obtained with patent iliac vein stents a nd improved venous return. There was some persistent sluggish flow noted. We then turned our attention to the righ t neck. Percutaneous access was obtained in the right internal jugular vein via m icropuncture technique under ultrasound and flouroscopic guidance after infiltra tion with local anesthetic. This was then up-sized to a 10 cm 5F sheath over a J-wire. The wire was advanced into the IVC beyond the IVC filter. A 5F omni-flu sh catheter was advanced into the IVC over the wire. Venography was performed with the above findings. The [employer] IVC filter retrieval system was opened a nd the 11F 60cm co-axial sheath was advanced to just proximal to the IVC harris ter over the J-wire under fluoroscopic guidance. The snare was then used to cap ture the IVC filter. The snare and catheter were cinched onto the IVC filte r and the sheath was advanced over the IVC filter under fluoroscopic guidance e nsuring the legs of the filter withdrew into the sheath. Once entirely within th e sheath, the inner sheath was withdrawn through the 11F outer sheath. The sheath was removed and manual pressure was held over the puncture site for 10 minut es until hemostasis was satisfactory. In the left groin, a perclose proglide w as used for venotomy closure. The sheath was removed and manual pressure was then held for 10 minutes until adequate hemostasis was obtained. The wound was d ressed with a sterile gauze and tegaderm. The patient was taken to the r ecovery room having suffered no apparent untoward event. Dr. Rodríguez was present for the entire pr ocedure. Plan: -continue therapeutic anticoagulation -JOSE wrap and elevate bilateral lower ex tremities Thank you for letting us participate in the care of this patient. ??If you are a health care provider and have any questi ons regarding this report, please contact the number below. ??For patients who have questions please contact the health director long term care that requested your imaging first. ? Electronically signed by: Marlene Rodríguez MD, [facility] ([phone]), at 03/19/2021 1:46 PM Procedure Note Marlene Rodríguez MD - 03/19/2021Format ting of this note might be different from the original. Attestation signed by Marlene Rodríguez MD at 03/17/2021 8:48 AM Attending Attestation I was the attending physician supervisin g the resident/fellow in the above care and I was present with the resident/fell ow for the entire procedure. I was present during the intraservice ti me as documented by the sedation RN. Vascular Surgery Interventional Procedur e Note Date of procedure: 03/15/21 Pre-Procedure Diagnosis: LLE iliofemoral DVT Post-Procedure Diagnosis: LLE iliofemora l DVT Procedure: - Left common femoral vein access with f luoroscopic and ultrasound guidance - LLE venogram - Selective catheterization of IVC - Angiojet pharmacomechanical thrombecto my with powerpulse of left common and external iliac veins - Left common iliac vein stent placement (Express [id number], post-dilated to 12mm) - Left common and external iliac vein st ent placement (Wallstent [id number]) - US guided right internal jugular vein access - IVC venogram - Retrieval of IVC filter - Perclose closure of left common femora l vein, manual pressure closure of right IJ vein Surgeon(s): MD Marlene Liu MD Intra-procedural Medications: Versed dose: 6 mg Fentanyl dose: 5000 mcg Local anesthetic: 16 cc 1% lidocaine Heparin: 16,000 Units Protamine: No Alteplase: 10 mg Antibiotics: ancef 2g Fluoro Time: 33.1 min min Contrast: 200 mL Sheath Size: 10 Fr sheath in L CFV; 13 F r sheath in R IJ vein Indications for the procedure: Mr Pate is a 60M who presented with 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 He is s/p suprarenal IVC filter placement and mechanical thrombectomy of IVC and R iliac veins. Plan for LLE venogram and interventions as indicated Findings: - LLE venogram: extensive DVT burden in common and external iliac veins - Intervention: Angiojet pharmacomechani emilee thrombectomy with powerpulse of left common and external iliac veins, Left co mmon iliac vein stent placement (Express [id number], post-dilated to 12mm), Left com mon and external iliac vein stent placement (Wallstent [id number]); - IVC venogram: suprarenal IVC filter in place without clot burden within filter - Intervention: IVC filter removal Procedure in detail: The patient was properly identified in the pre-operative holding area. After discussions of the risks and benefits, operative consent was obtained. The patient was brought to the angiography suite and placed on the angio table. The patient was prepped and draped in the usual sterile fashion. A time-out was performed by the attending surgeon confirming the patient, the intended procedure, the side of interven tion and equipment needed. Split doses of fentanyl and versed were administered for conscious sedation by the Interventional Radiology nurse during co ntinuous monitoring of pulse, blood pressure and oxygen saturation. After in jection of local anesthetic, percutaneous access was obtained via the left common femoral vein under fluoroscopic and ultrasound guidance usi ng a micro puncture technique. A cope wire was inserted and upsized to a 5 Jeffery nch sheath over a J-wire. A LLE venogram was obtained with the above findings. A stiff glidewire was advanced to the proximal common iliac vein. A dipti alexander ter and 018 Victory wire 30g was used to advance through the struts of the existi ng wallstent and advance into the IVC. A leonel 6x60mm balloon was used to dila te the struts of the wallstent, however we were still unable to advance a cathet er over the wire into the IVC. A V14 wire was then inserted as a yasmine wire a nd advanced into the IVC. With this extra support, sheath exchange was perfo rmed for a 7Fr 45cm destination sheath, which was advanced to the proximal commo n iliac vein. A Richmond 5x40mm balloon was used to dilate the struts, and when the balloon was deflated the sheath was advanced into the IVC. An Express 10x37m m balloon expandable stent was deployed in the proximal left common iliac vein, extending through the struts of the right iliac wallstent into the IVC. This was post-dilated to 12mm. Next, the sheath was upsized to a 9Fr sheath. Kelli ojet pharmacomechanical thrombectomy with powerpulse (10mg tPA) was performed of the left common and external iliac veins. We then upsized the sheath to a 1 0Fr sheath. A [id number] wallstent was deployed in the left common and external iliac veins. A completion venogram was obtained with patent iliac vein stents a nd improved venous return. There was some persistent sluggish flow noted. We then turned our attention to the righ t neck. Percutaneous access was obtained in the right internal jugular vein via m icropuncture technique under ultrasound and flouroscopic guidance after infiltra tion with local anesthetic. This was then up-sized to a 10 cm 5F sheath over a J-wire. The wire was advanced into the IVC beyond the IVC filter. A 5F omni-flu sh catheter was advanced into the IVC over the wire. Venography was performed with the above findings. The [employer] IVC filter retrieval system was opened a nd the 11F 60cm co-axial sheath was advanced to just proximal to the IVC harris ter over the J-wire under fluoroscopic guidance. The snare was then used to cap ture the IVC filter. The snare and catheter were cinched onto the IVC filte r and the sheath was advanced over the IVC filter under fluoroscopic guidance e nsuring the legs of the filter withdrew into the sheath. Once entirely within th e sheath, the inner sheath was withdrawn through the 11F outer sheath. The sheath was removed and manual pressure was held over the puncture site for 10 minut es until hemostasis was satisfactory. In the left groin, a perclose proglide w as used for venotomy closure. The sheath was removed and manual pressure was then held for 10 minutes until adequate hemostasis was obtained. The wound was d ressed with a sterile gauze and tegaderm. The patient was taken to the r ecovery room having suffered no apparent untoward event. Dr. Rodríguez was present for the entire pr ocedure. Plan: -continue therapeutic anticoagulation -JOSE wrap and elevate bilateral lower ex tremities Thank you for letting us participate in the care of this patient. If you are a health care provider and have any questi ons regarding this report, please contact the number below. For patients w ho have questions please contact the health director long term care that requested your imaging first. Marlene Rodríguez MD IMG IR ORDERABLES Heparin (unfractionated) Level (03/15/2021 1:20 AM EST) athologist Signature Heparin UFH 0.47 IU/mL [facility] Comment: Heparin (anti-Xa) levels should [...] (Source) Location / / Volume Laterality Blood 03/15/2021 1:20 AM 1:27 EST AM EST Resulting Agency Comment Spec In Lab Marlene Rodríguez MD HEMATOLOGY ORDERABLES Performing Organization Address City/State/Z[place] [address] (ABNORMAL) Differential, Automated (03/15/2021 12:41 AM EST) Patholo gist Method Time Signature Neutrophils % 75.9 % [facility] Neutr Abs (ANC) 7.15 (H) 1.70 - [facility] 6.10 [facility] x10(3)/[facility] LABORATORY Lymphocytes % 14.3 % [facility] Lymphocytes Abs 1.4 0.9 - 3.2 [facility] x10(3)/[facility] LABORATORY Monocytes % 7.8 % [facility] Monocyte Abs 0.7 0.3 - 0.9 [facility] x10(3)/[facility] LAB[facility]ORY Eosinophils % 1.4 % [facility] Eosinophils Abs 0.1 0.0 - 0.4 [facility] x10(3)/[facility] Basophils % 0.3 % [facility] Basophils Abs 0.0 0.0 - 0.1 [facility] x10(3)/[facility] Immature Gran % 0.30 % [facility] Comment: Immature granulocytes(IG's)percentage an d absolute count will include metamyelocytes, myelocytes, and promyelo cytes. Blood smears from CBCs yielding IG's will be scanned manually for concor dance. If this scan disagrees with the automated IG or if promyelocytes are not ed, a manual differential will be performed. Lata Gran Abs 0.03 0.00 - 0.04 x10(3)/[facility] Specimen Anatomical Collection Method Collection Time Receive d Time (Source) Location / / Volume Laterality Blood 03/15/2021 12:41 03/15/2021 AM EST 12:51 AM EST Resulting Agency Comment Spec In Lab Cristina Amador MD HEMATOLOGY ORDERABLES Performing Organization Address City/State/Z[place] [address] (ABNORMAL) Hemogram (03/15/2021 12:41 AM EST) Analysis Performed At Patho logist Time Signature WBC 9.4 4.0 - 9.5 [facility] x10(3)/[facility] RBC 3.11 (L) 4.58 - [facility] 5.54 [facility] x10(6)/[facility] Hemoglobin 8.9 (L) 13.7 - [facility] 16.5 g/dL [facility] Hematocrit 27.8 (L) 40.5 - [facility] 48.5 % [facility] MCV 89.4 82.9 - [facility] 93.1 [facility] MCH 28.6 27.5 - [facility] 32.1 pg [facility] MCHC 32.0 32.0 - [facility] 35.7 g/dL [facility] Platelets 359 (H) 145 - 357 [facility] x10(3)/[facility] LAB[facility]ORY RDWSD 42.1 36.0 - [facility] 45.0 [facility] RDWCV 12.9 11.4 - [facility] 13.8 % [facility] MPV 9.6 7.6 - 12.9 [facility] nRBC % Auto 0.0 % [facility] nRBC Abs Auto 0.000 0.000 - [facility] 0.000 [facility] x10(3)/[facility] Specimen Anatomical Collection Method Collection Time Receive d Time (Source) Location / / Volume Laterality Blood 03/15/2021 12:41 03/15/2021 AM EST 12:51 AM EST Resulting Agency Comment Spec In Lab Cristina Amador MD HEMATOLOGY ORDERABLES Performing Organization Address City/State/ZIP Code Phon e Number [address] Phosphorus (03/15/2021 12:41 AM EST) P athologist Signature Phosphorus 3.1 2.5 - 4.5 [facility] mg/dL [facility] Specimen Anatomical Collection Method Collection Time Receive d Time (Source) Location / / Volume Laterality Blood 03/15/2021 12:41 03/15/2021 AM EST 12:51 AM EST Resulting Agency Comment Spec In Lab Marlene Rodríguez MD CHEMISTRY ORDERABLES Performing Organization Address City/State/ZIP Code Phon e Number [address] Magnesium (03/15/2021 12:41 AM EST) athologist Signature Magnesium 0.91 0.69 - 1.07 [facility] mmol/L [facility] Specimen Anatomical Collection Method Collection Time Receive d Time (Source) Location / / Volume Laterality Blood 03/15/2021 12:41 03/15/2021 AM EST 12:51 AM EST Resulting Agency Comment Spec In Lab Marlene Rodríguez MD CHEMISTRY ORDERABLES Performing Organization Address City/State/ZIP [place] [address] (ABNORMAL) Basic Metabolic Panel (non-fasting) (03/15/2021 12:41 AM EST) athologist Signature Glucose Lvl 152 65 - 199 [facility] mg/dL [facility] Comment: Diabetes: >=200 mg/dL plus symp toms BUN 10 10 - 20 mg/dL [facility] Creatinine 0.62 (L) 0.80 - 1.50 mg/dL [facility] Sodium 135 135 - 145 mmol/L [facility] Potassium 3.8 3.5 - 5.0 mmol/L [facility] Comment: Please note: ??Patients with WBC >100,00 0 may have falsely elevated Potassium levels. ??For accurate Potassium quantif ication in these patients send serum separator tube (gold top) for subsequent determinations. ??Contact the Clinical Chemistry Laboratory if there are any qu estions. Chloride 101 98 - 107 mmol/L [facility] CO2 25 22 - 31 mmol/L [facility] Anion Gap 9 5 - 15 mmol/L [facility] Calcium 8.3 (L) 8.5 - 10.5 mg/dL [facility] Comment: result rechecked-gh Estimated GFR 107 >=60 mL/min/1.73 m?? [facility] Comment: This patient? s estimated glomerular filtration rate (eGFR) is between 107 mL/min/1.73 m2 (patients with less muscl e mass per kg body weight) and 124 mL/min/1.73 m2 (patients with more muscl e [...] (Source) Location / / Volume Laterality Blood 03/15/2021 12:41 03/15/2021 AM EST 12:51 AM EST Resulting Agency Comment Spec In Lab Marlene Rodríguez MD CHEMISTRY ORDERABLES Performing Organization Address City/State/ZIP Code Phon e Number [place] [id number] [facility]ORY Drive XR Chest One View (03/15/2021 12:34 AM EST) Anatomical Region Laterality Modality Chest N/A Digital Radiography Specimen (Source) Anatomical Location Collection Method / Collectio n Time Received Time / Laterality Volume Impressions 03/15/2021 2:01 AM EST * ??Low lung volumes. * ??Right mid and lower lung hazy airspa ce opacities, likely atelectasis. Preliminary report signed by: Rogers Flower at 03/15/2021 1:20 AM I have personally reviewed the image(s) and the resident's interpretation and agree with the findings, Nancy Casillas MD at 03/15/2021 2:01 AM Thank you for letting us participate in the care of this patient. ??If you are a health care provider and have any questi ons regarding this report, please contact the number below. ??For patients who have questions please contact the health director long term care that requested your imaging first. ? Narrative 03/15/2021 2:01 AM EST EXAMINATION: XR CHEST ONE VIEW CLINICAL HISTORY: 60M POD 1 s/p operativ e intervention for R leg phlegmasia now with chest tightness, particuarly with i nspiration TECHNIQUE: 1 view of the chest COMPARISON: CT chest 03/12/2021 FINDINGS: Trachea, mainstem bronchi and cardiomedi astinal silhouette are within normal limits. Low lung volumes with bronchovas cular crowding. Right mid and lower lung hazy opacities. No pleural effusion or p neumothorax. No acute osseous abnormality. Unremarkable upper abdomen. Procedure Note Taylor Casillas MD - 03/15/2021Formattin g of this note might be different from the original. 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 Low lung volumes with bronchovas cular crowding. Right mid and lower lung hazy opacities. No pleural effusion or p neumothorax. No acute osseous abnormality. Unremarkable upper abdomen. IMPRESSION * Low lung volumes. * Right mid and lower lung hazy airspace opacities, likely atelectasis. Preliminary report signed by: Rogers Flower at 03/15/2021 1:20 AM I have personally reviewed the image(s) and the resident's interpretation and agree with the findings, Nancy Casillas MD at 03/15/2021 2:01 AM Thank you for letting us participate in the care of this patient. If you are a health care provider and have any questi ons regarding this report, please contact the number below. For patients w ho have questions please contact the health director long term care that requested your imaging first. Marlene Rodríguez MD IMG DX ORDERABLES EKG 12 Lead (03/15/2021 12:26 AM EST) Component Value Ref Range Test Analysis Performed Pathologis t Method Time At Signature Ventricular rate 84 BPM MUSE SYSTEM Atrial Rate 84 BPM MUSE SYSTEM P-R Interval 150 ms MUSE SYSTEM QRS Duration 98 ms MUSE SYSTEM Q-T Interval 376 ms MUSE SYSTEM QTC Calculated 444 ms MUSE SYSTEM (Bezet) Calculated P [place] 30 degrees MUSE SYSTEM Calculated R [place] -5 degrees MUSE SYSTEM Calculated T [place] 30 degrees MUSE SYSTEM INTERPRETATION Normal sinus rhythm MUSE SYSTEM Nonspecific T wave abnormality Abnormal ECG When compared with ECG of 12-MAR-2021 05:17, No significant change was found I personally reviewed the tracing and edited the fellows int erpretation Confirmed by fellow Pato Corcoran ([id number]) on 03/15/2021 1: 59:35 PM Confirmed by Marilin Mclean ([id number]) on 03/16/2021 12:30:59 PM Specimen Anatomical Collection Method Collection Time Receive d Time (Source) Location / / Volume Laterality 03/15/2021 12:26 03/16/2021 AM EST 12:30 PM EST Marlene Rodríguez MD ECG ORDERABLES Performing Organization Address City/State/ZIP Code Phon e Number MUSE SYSTEM Green Tube HOLD (03/14/2021 5:47 PM EST) P athologist Signature Green Hold Sample in [facility] LABORATORY Specimen Anatomical Collection Method Collection Time Receive d Time (Source) Location / / Volume Laterality Blood No Charge / 03/14/2021 5:47 PM 5:47 Unknown EST PM EST Marlene Rodríguez MD CHEMISTRY ORDERABLES Performing Organization Address City/State/[place] [address] Heparin (unfractionated) Level (03/14/2021 5:30 PM EST) P athologist Signature Heparin UFH 0.48 IU/mL [facility] LABORATORY Comment: Heparin (anti-Xa) levels should [...] (Source) Location / / Volume Laterality Blood 03/14/2021 5:30 PM 2 5:45 EST PM EST Resulting Agency Comment Spec In Lab Marlene Rodríguez MD HEMATOLOGY ORDERABLES Performing Organization Address City/[facility]/[place] [address] (ABNORMAL) CK (03/14/2021 1:05 PM EST) athologist Signature CK, Total 5,550 (H) 0 - 200 [facility] unit/L [facility] LABORATORY Specimen Anatomical Collection Method Collection Time Receive d Time (Source) Location / / Volume Laterality Blood 03/14/2021 1:05 PM 2 1:33 EST PM EST Resulting Agency Comment Spec In Lab Marlene Rodríguez MD CHEMISTRY ORDERABLES Performing Organization Address City/[facility]/[place] [address] Venogram Abdomen & Pelvis (03/14/2021 12:54 PM EST) Anatomical Region Laterality Modality Abdomen, Pelvis Computed Tomography Specimen (Source) Anatomical Collection Method Collection Time Re ceived Time Location / / Volume Laterality 03/14/2021 1:10 PM EST Impressions 03/14/2021 1:07 PM EST 1. ??Interval recanalization with stent graft placement through the IVC and right common and external iliac veins. 2. ??Interval placement of suprarenal IV C filter. 3. ??Residual retroperitoneal, pelvic an d body wall edema. 4. ??New edema through subcutaneous tiss ues and muscular tissues of the left pelvis and proximal thigh. 5. ??Persistent thrombus possibly with m ixed hematoma expanding the occluded left common, external iliac, common femoral a nd visualized segments of left superficial femoral vein. Thank you for letting us participate in the care of this patient. ??If you are a health care provider and have any questi ons regarding this report, please contact the number below. ??For patients who have questions please contact the health director long term care that requested your imaging first. ? 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 COMPARISON: 12/10/2021 FINDINGS: Interval placement of suprarenal IVC harris ter. Interval placement of right common and external iliac vein stent to the inf rarenal IVC. IVC and right iliac vein stent patent. Nonstented segment of dist al IVC external to the stent remains distended with mixed density thrombus. M ixed density thrombus expands the left common and iliac veins, extending into t he thrombosed visualized segments of left common and superficial femoral vein s. Imaged portions of lung bases show bibas ilar atelectasis. Liver, gallbladder, pancreas and spleen normal. No biliary dilation. Adrenal glands normal. Prompt symmetric bilatera l nondilated nephrograms, pyelograms with stable bilateral parapelvic cysts. No pathologically enlarged lymph nodes. Loops of large and small bowel are of no rmal caliber without mural thickening. Persistent dependent pelvic retroperiton eal edema. Body wall edema. Asymmetric swelling through proximal segment of the left thigh and deep pelvic and gluteal musculature. 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 COMPARISON: 12/10/2021 FINDINGS: Interval placement of suprarenal IVC h[address] ter. Interval placement of right common and external iliac vein stent to the inf rarenal IVC. IVC and right iliac vein stent patent. Nonstented segment of dist al IVC external to the stent remains distended with mixed density thrombus. M ixed density thrombus expands the left common and iliac veins, extending into t he thrombosed visualized segments of left common and superficial femoral vein s. Imaged portions of lung bases show bibas ilar atelectasis. Liver, gallbladder, pancreas and spleen normal. No biliary dilation. Adrenal glands normal. Prompt symmetric bilatera l nondilated nephrograms, pyelograms with stable bilateral parapelvic cysts. No pathologically enlarged lymph nodes. Loops of large and small bowel are of no rmal caliber without mural thickening. Persistent dependent pelvic retroperiton eal edema. Body wall edema. Asymmetric swelling through proximal segment of the left thigh and deep pelvic and gluteal musculature. IMPRESSION 1. Interval recanalization with stent gr aft placement through the IVC and right common and external iliac veins. 2. Interval placement of suprarenal IVC filter. 3. Residual retroperitoneal, pelvic and body wall edema. 4. New edema through subcutaneous tissue s and muscular tissues of the left pelvis and proximal thigh. 5. Persistent thrombus possibly with mix ed hematoma expanding the occluded left common, external iliac, common femoral a nd visualized segments of left superficial femoral vein. Thank you for letting us participate in the care of this patient. If you are a health care provider and have any questi ons regarding this report, please contact the number below. For patients w ho have questions please contact the health director long term care that requested your imaging first. Electronically signed by: Teresa Sweet MD , [facility] ([phone]), at 03/14/2021 1:07 PM Marlene oRdríguez MD IMG CT ORDERABLES Heparin (unfractionated) Level (03/14/2021 10:40 AM EST) athologist Signature Heparin UFH 0.40 IU/mL [facility] LABORATORY Comment: Heparin (anti-Xa) levels should [...] (Source) Location / / Volume Laterality Blood 03/14/2021 10:40 03/14/2021 AM EST 11:00 AM EST Resulting Agency Comment Spec In Lab Marlene Rodríguez MD HEMATOLOGY ORDERABLES Performing Organization Address City/State/[place] [address] Heparin (unfractionated) Level (03/14/2021 4:25 AM EST) athologist Signature Heparin UFH 0.77 IU/mL [facility] LABORATORY Comment: Heparin (anti-Xa) levels should [...] (Source) Location / / Volume Laterality Blood 03/14/2021 4:25 AM 2 4:30 EST AM EST Resulting Agency Comment Spec In Lab Marlene Rodríguez MD HEMATOLOGY ORDERABLES Performing Organization Address City/[facility]/[place] [address] (ABNORMAL) CK (03/14/2021 4:25 AM EST) P athologist Signature CK, Total 7,495 (H) 0 - 200 [facility] LABORATORY Comment: result rechecked-KS Specimen Anatomical Collection Method Collection Time Receive d Time (Source) Location / / Volume Laterality Blood 03/14/2021 4:25 AM 2 4:30 EST AM EST Resulting Agency Comment Spec In Lab Marlene Rodríguez MD CHEMISTRY ORDERABLES Performing Organization Address City/[facility]/[place] [address] Blue Tube HOLD (03/14/2021 3:35 AM EST) P athologist Signature Blue Hold Sample in [facility] LABORATORY Specimen Anatomical Collection Method Collection Time Receive d Time (Source) Location / / Volume Laterality Blood No Charge / 03/14/2021 3:35 AM 2 4:03 Unknown EST AM EST Sachi Ford MD HEMATOLOGY ORDERABLES Performing Organization Address City/[facility]/[place] [address] (ABNORMAL) CK (03/14/2021 2:50 AM EST) P athologist Signature CK, Total 7,620 (H) 0 - 200 [facility] LABORATORY Specimen Anatomical Collection Method Collection Time Receive d Time (Source) Location / / Volume Laterality Blood 03/14/2021 2:50 AM 2 2:56 EST AM EST Resulting Agency Comment Spec In Lab Marlene Rodríguez MD CHEMISTRY ORDERABLES Performing Organization Address City/[facility]/Z[place] [address] [facility] [address] (ABNORMAL) CK (03/14/2021 12:35 AM EST) P athologist Signature CK, Total 8,075 (H) 0 - 200 [facility] LABORATORY Specimen Anatomical Collection Method Collection Time Receive d Time (Source) Location / / Volume Laterality Blood Venous Draw / 03/14/2021 12:35 03/14/2021 Unknown AM EST 12:44 AM EST Resulting Agency Comment Spec In Lab Ruben Medrano Jr., MD CHEMISTRY ORDERABLES Performing Organization Address City/State/ZIP Code Phon e Number [address] (ABNORMAL) Differential, Automated (03/14/2021 12:35 AM EST) Patholo gist Method Time Signature Neutrophils % 79.2 % [facility] LABORATORY Neutr Abs (ANC) 9.29 (H) 1.70 - [facility] 6.10 [facility] x10(3)/[facility] LABORATORY Lymphocytes % 10.1 % [facility] LABORATORY Lymphocytes Abs 1.2 0.9 - 3.2 [facility] x10(3)/[facility] LABORATORY Monocytes % 9.3 % [facility] LABORATORY Monocyte Abs 1.1 (H) 0.3 - 0.9 [facility] x10(3)/[facility] LABORATORY Eosinophils % 0.8 % [facility] LABORATORY Eosinophils Abs 0.1 0.0 - 0.4 [facility] x10(3)/[facility] LABORATORY Basophils % 0.3 % [facility] LABORATORY Basophils Abs 0.0 0.0 - 0.1 [facility] x10(3)/[facility] LABORATORY Immature Gran % 0.30 % [facility] LABORATORY Comment: Immature granulocytes(IG's)percentage an d absolute count will include metamyelocytes, myelocytes, and promyelo cytes. Blood smears from CBCs yielding IG's will be scanned manually for concor dance. If this scan disagrees with the automated IG or if promyelocytes are not ed, a manual differential will be performed. Lata Gran Abs 0.04 0.00 - 0.04 x10(3)/[facility] LABORATORY Specimen Anatomical Collection Method Collection Time Receive d Time (Source) Location / / Volume Laterality Blood 03/14/2021 12:35 03/14/2021 AM EST 12:41 AM EST Resulting Agency Comment Spec In Lab Sachi Ford MD HEMATOLOGY ORDERABLES Performing Organization Address City/State/ZIP [place] [address] (ABNORMAL) Hemogram (03/14/2021 12:35 AM EST) Analysis Performed At Patho logist Time Signature WBC 11.7 (H) 4.0 - 9.5 [facility] x10(3)/[facility] LABORATORY RBC 3.03 (L) 4.58 - [facility] 5.54 [facility] x10(6)/[facility] LABORATORY Hemoglobin 8.7 (L) 13.7 - [facility]/dL [facility] LABORATORY Hematocrit 26.8 (L) 40.5 - [facility] 48.5 % [facility] LABORATORY MCV 88.4 82.9 - [facility] 93.1 [facility] LABORATORY MCH 28.7 27.5 - [facility] 32.1 pg [facility] LABORATORY MCHC 32.5 32.0 - [facility] 35.7 g/dL [facility] LABORATORY Platelets 311 145 - 357 [facility] x10(3)/[facility] LABORATORY RDWSD 40.9 36.0 - [facility]0 [facility] LAB[facility]AT[facility] RDWCV 12.6 11.4 - [facility] 13.8 % [facility] LABORATORY MPV 9.3 7.6 - 12.9 [facility] LABORATORY nRBC % Auto 0.0 % [facility] LABORATORY nRBC Abs Auto 0.000 0.000 - [facility] 0.000 [facility] x10(3)/[facility] LABORATORY Specimen Anatomical Collection Method Collection Time Receive d Time (Source) Location / / Volume Laterality Blood 03/14/2021 12:35 03/14/2021 AM EST 12:41 AM EST Resulting Agency Comment Spec In Lab Sachi Ford MD HEMATOLOGY ORDERABLES Performing Organization Address City/[facility]/ZIP Code Phon e Number [address] (ABNORMAL) Phosphorus (03/14/2021 12:35 AM EST) P athologist Signature Phosphorus 2.0 (L) 2.5 - 4.5 [facility] LABORATORY Specimen Anatomical Collection Method Collection Time Receive d Time (Source) Location / / Volume Laterality Blood 03/14/2021 12:35 03/14/2021 AM EST 12:41 AM EST Resulting Agency Comment Spec In Lab Marlene Rodríguez MD CHEMISTRY ORDERABLES Performing Organization Address City/[facility]/ZIP Code Phon e Number [address] Magnesium (03/14/2021 12:35 AM EST) P athologist Signature Magnesium 0.87 0.69 - 1.07 [facility] mmol/L [facility] LABORATORY Specimen Anatomical Collection Method Collection Time Receive d Time (Source) Location / / Volume Laterality Blood 03/14/2021 12:35 03/14/2021 AM EST 12:41 AM EST Resulting Agency Comment Spec In Lab Marlene Rodríguez MD CHEMISTRY ORDERABLES Performing Organization Address City/[facility] [place] [address] (ABNORMAL) Basic Metabolic Panel (non-fasting) (03/14/2021 12:35 AM EST) P athologist Signature Glucose Lvl 141 65 - 199 [facility]/dL [facility] LABORATORY Comment: Diabetes: >=200 mg/dL plus symp toms BUN 12 10 - 20 mg/dL [facility] LABORATORY Creatinine 0.60 (L) 0.80 - 1.50 mg/dL [facility] LABORATORY Sodium 135 135 - 145 mmol/L [facility] LABORATORY Potassium 3.7 3.5 - 5.0 mmol/L [facility] LABORATORY Comment: Please note: ??Patients with WBC >100,00 0 may have falsely elevated Potassium levels. ??For accurate Potassium quantif ication in these patients send serum separator tube (gold top) for subsequent determinations. ??Contact the Clinical Chemistry Laboratory if there are any qu estions. Chloride 103 98 - 107 mmol/L [facility] LABORATORY CO2 23 22 - 31 mmol/L [facility] LABORATORY Anion Gap 9 5 - 15 mmol/L [facility] LABORATORY Calcium 7.7 (L) 8.5 - 10.5 mg/dL [facility] LABORATORY Estimated GFR 109 >=60 mL/min/1.73 m?? [facility] LABORATORY Comment: This patient? s estimated glomerular filtration rate (eGFR) is between 109 mL/min/1.73 m2 (patients with less muscl e mass per kg body weight) and 126 mL/min/1.73 m2 (patients with more muscl e [...] (Source) Location / / Volume Laterality Blood 03/14/2021 12:35 03/14/2021 AM EST 12:41 AM EST Resulting Agency Comment Spec In Lab Marlene Rodríguez MD CHEMISTRY ORDERABLES Performing Organization Address City/State/Z[place] [address] (ABNORMAL) Differential, Automated (03/13/2021 9:01 PM EST) [employer] Method Time Signature Neutrophils % 71.7 % [facility] LABORATORY Neutr Abs (ANC) 6.70 (H) 1.70 - [facility] 6.10 [facility] x10(3)/[facility] LABORATORY Lymphocytes % 13.5 % [facility] LABORATORY Lymphocytes Abs 1.3 0.9 - 3.2 [facility] x10(3)/[facility] LABORATORY Monocytes % 12.3 % [facility] LABORATORY Monocyte Abs 1.2 (H) 0.3 - 0.9 [facility] x10(3)/[facility] LABORATORY Eosinophils % 1.3 % [facility] LABORATORY Eosinophils Abs 0.1 0.0 - 0.4 [facility] x10(3)/[facility] LABORATORY Basophils % 0.2 % [facility] LABORATORY Basophils Abs 0.0 0.0 - 0.1 [facility] x10(3)/[facility] LABORATORY Immature Gran % 1.00 % [facility] LABORATORY Comment: Immature granulocytes(IG's)percentage an d absolute count will include metamyelocytes, myelocytes, and promyelo cytes. Blood smears from CBCs yielding IG's will be scanned manually for concor dance. If this scan disagrees with the automated IG or if promyelocytes are not ed, a manual differential will be performed. Lata Gran Abs 0.09 (H) 0.00 - 0.04 x10(3)/[facility] LABORATORY Specimen Anatomical Collection Method Collection Time Receive d Time (Source) Location / / Volume Laterality Blood 03/13/2021 9:01 PM 9:06 EST PM EST Resulting Agency Comment Spec In Lab Ruben Medrano Jr., MD HEMATOLOGY ORDERABLES Performing Organization Address City/State/Z[place] [address] (ABNORMAL) Hemogram (03/13/2021 9:01 PM EST) Analysis Performed At Patho logist Time Signature WBC 9.3 4.0 - 9.5 [facility] x10(3)/[facility] LABORATORY RBC 3.10 (L) 4.58 - [facility] 5.54 [facility] x10(6)/[facility] LABORATORY Hemoglobin 9.0 (L) 13.7 - [facility] 16.5 g/dL [facility] LABORATORY Hematocrit 27.8 (L) 40.5 - [facility] 48.5 % [facility] MCV 89.7 82.9 - [facility] 93.1 [facility] LABORATORY MCH 29.0 27.5 - [facility] 32.1 pg [facility] LABORATORY MCHC 32.4 32.0 - [facility] [place] 35.7 g/dL [facility] LABORATORY Platelets 314 145 - 357 [facility] x10(3)/[facility] LABORATORY RDWSD 41.8 36.0 - [facility] CH[facility] 45.0 [facility] LABORATORY RDWCV 12.7 11.4 - [facility] CHANG 13.8 % [facility] LABORATORY MPV 9.0 7.6 - 12.9 [facility] LABORATORY nRBC % Auto 0.0 % [facility] nRBC Abs Auto 0.000 0.000 - [facility] 0.000 [facility] x10(3)/[facility] LABORATORY Specimen Anatomical Collection Method Collection Time Receive d Time (Source) Location / / Volume Laterality Blood 03/13/2021 9:01 PM 9:06 EST PM EST Resulting Agency Comment Spec In Lab Ruben Medrano Jr., MD HEMATOLOGY ORDERABLES Performing Organization Address City/State/ZIP [place] [address] Heparin (unfractionated) Level (03/13/2021 9:01 PM EST) P athologist Signature Heparin UFH <0.04 IU/mL [facility] LABORATORY Comment: Heparin (anti-Xa) levels should [...] (Source) Location / / Volume Laterality Blood 03/13/2021 9:01 PM 2 9:06 EST PM EST Resulting Agency Comment Spec In Lab Marlene Rodríguez MD HEMATOLOGY ORDERABLES Performing Organization Address City/[facility]/ZIP Code Phon e Number [address] (ABNORMAL) CK (03/13/2021 5:41 PM EST) athologist Signature CK, Total 10,050 (H) 0 - 200 [facility] unit/L [facility] LABORATORY Specimen Anatomical Collection Method Collection Time Receive d Time (Source) Location / / Volume Laterality Blood 03/13/2021 5:41 PM 2 6:00 EST PM EST Resulting Agency Comment Spec In Lab Marlene Rodríguez MD CHEMISTRY ORDERABLES Performing Organization Address City/[facility] [place] [address] (ABNORMAL) Basic Metabolic Panel (non-fasting) (03/13/2021 5:41 PM EST) athologist Signature Glucose Lvl 122 65 - 199 [facility] mg/dL [facility] LABORATORY Comment: Diabetes: >=200 mg/dL plus symp toms BUN 11 10 - 20 mg/dL [facility] LABORATORY Creatinine 0.68 (L) 0.80 - 1.50 mg/dL [facility] LABORATORY Sodium 138 135 - 145 mmol/L [facility] LABORATORY Potassium 3.9 3.5 - 5.0 mmol/L [facility] LABORATORY Comment: Please note: ??Patients with WBC >100,00 0 may have falsely elevated Potassium levels. ??For accurate Potassium quantif ication in these patients send serum separator tube (gold top) for subsequent determinations. ??Contact the Clinical Chemistry Laboratory if there are any qu estions. Chloride 104 98 - 107 mmol/L [facility] LABORATORY CO2 24 22 - 31 mmol/L [facility] LABORATORY Anion Gap 10 5 - 15 mmol/L [facility] LABORATORY Calcium 8.0 (L) 8.5 - 10.5 mg/dL [facility] LABORATORY Estimated GFR 103 >=60 mL/min/1.73 m?? [facility] LABORATORY Comment: This patient? s estimated glomerular filtration rate (eGFR) is between 103 mL/min/1.73 m2 (patients with less muscl e mass per kg body weight) and 119 mL/min/1.73 m2 (patients with more muscl e [...] (Source) Location / / Volume Laterality Blood 03/13/2021 5:41 PM 2 6:00 EST PM EST Resulting Agency Comment Spec In Lab Martine Gerardo DO CHEMISTRY ORDERABLES Performing Organization Address City/State/ZIP [place] [address] ECHOCARDIO[address] COMPLETE W CONTRAST (03/13/2021 1:32 PM EST) P athologist Signature EF 65 [facility] Anatomical Region Laterality Modality Other Specimen (Source) Anatomical Location Collection Method / Collectio n Time Received Time / Laterality Volume 03/13/2021 Narrative 03/13/2021 2:16 PM EST Procedure: ?Transthoracic Echocardiogram Patient: ?RIO Torrez ?(Age): 1960(60y) Med Rec#: ? [id number] ?Sex: ?M ? Site Loc: ? [facility] ?Ht / Wt: ??174(cm)/96(kg) Pt. Loc: ?ICU ? BSA: ?2.1 Study Date: ?? 03/13/2021 ?Pt. Type: Inpatient Tape: ? 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 118/75 SUMMARY: 1. There is normal global left ventricul ar systolic function with an EF of 60-70% with no wall motion abnormalit ies. 2. The right ventricle is normal in size and function. Free wall strain is normal at -25.6% on GE echo machine. ??The estimated pulmonary artery systolic pressure is normal at 26 mmHg. 3. There is no hemodynamically significa nt valve disease. 4. There is moderate dilatation of the a ortic root. ??4.4cm Findings ? : Left Ventricle: ? The left ventricul ar chamber size is normal. ?Mild concentric left ventricular h ypertrophy is observed. ?There is no evidence of LVOT obstr uction. ?No ventricular septal defect is vi sualized. ?There is normal global left ventri cular systolic function. ??Ejection fraction is estimated to be 65%. ?There are no left ventricular segm ental wall motion abnormalities. ?Left ventricular diastolic functio n is normal. ?Doppler assessment is consistent w ith normal left sided filling pressure. Left Atrium: ? The left atrium is no rmal in size. ?There is no patent foramen ovale v isualized. Right Ventricle: ? The right ventric le is normal in size. ?Right ventricular global systolic function is normal. GS= -21.0, FWS= -25.6 (GE) ?The estimated pulmonary artery sys tolic pressure is 26 mmHg. ?The estimated right atrial pressur e is 3 mmHg. Right Atrium: ? The right atrium stella ears normal. Aortic Valve: ? The aortic valve is tricuspid. ?The aortic valve leaflets are mild ly thickened. ?Systolic excursion of the aortic v alve is normal. ?There is no evidence of aortic jason ve stenosis. ?There is no evidence of aortic reg urgitation. Mitral Valve: ? The mitral valve kole flets are mildly thickened. ?There is trace mitral regurgitatio n present. Tricuspid Valve: ? The tricuspid jason ve appears normal in structure and function. ?There is trace tricuspid regurgita tion present. Pulmonic Valve: ? The pulmonic valve appears normal in structure and function. ?There is trace pulmonic regurgitat ion present. Pericardium: ? There is no pericardi al effusion. Aorta: ? There is moderate dilatatio n of the aortic root. 4.4cm ?There is mild dilatation of the as cending aorta. 3.7cm Pulmonary Artery: ? The main pulmona ry artery appears normal. Venous: ? The inferior vena cava stella ears normal in size. ?There is a greater than 50% respir atory change in the inferior vena cava dimension. Misc: ? There is no hemodynamically significant valve disease. ?Two-dimensional echo, spectral Dop pler and color Doppler performed. ?Optison contrast (one 3 ml vial) w as used to enhance endocardial definition. Excess contrast was discarde d. Chambers 2D ?Value ?Units (Range) ? IVSd (2D) ? 1.25 ? cm ? LVPWd (2D) ?1.16 ? cm ? IVS:LVPW ratio (2D) 1.08 ? ratio ? RWT (2D) ?0.48 ? ratio ? RWT PW (2D) ? 0.46 ? ratio ? LVIDd (2D) ?5.03 ? cm ? LVIDs (2D) ?3.5 ?cm ? LVIDd (2D) index ?2.39 ? cm/m2 ? LVIDs (2D) index ?1.66 ? cm/m2 ? LV FS (2D) ?30.51 ?% ? EF Teichholz (2D) ?? 57.71 ?% ? Ao root diameter (2D4.45 ? cm (2.1 - 3.6) ? Ascending Ao ?3.72 ? cm (2 - 3.5) ? Volumes/Mass ?Value ?Units (Range) ? LA Area 4 CH ?14.3 ? cm2 (<21) ? LA ESV BP (A/L) inde19.27 ? ml/m2 ? RA AREA 4CH ? 12.8 ? cm2 ? LV mass (2D) ?238.2 ?g ? LV mass (2D) index ??113.16 ? g/m2 ? Diastolic/Systolic Function ?Value ?Units (Range) ? MV E-wave Vmax ?0.68 ? m/sec ? MV deceleration xhxx648.66 ? m sec ? MV A-wave Vmax ?0.85 ? m/sec ? MV E:A ratio ?0.79 ? ratio ? LV septal e' Vmax ?? 0.09 ? m/sec ? LV lateral e' Vmax ??0.14 ? m/sec ? LV average e' Vmax ??0.12 ? m/sec ? LV E:e' septal ratio7.53 ? ratio ? LV E:e' lateral rati4.84 ? ratio ? LV average E:e' rati5.89 ? ratio ? Aortic Valve ?Value ?Units (Range) ? AV Vmax ? 1.4 ?m/sec ? AV VTI ?24.3 ? cm ? AV peak gradient ?7.89 ? mmHg ? AV mean gradient ?4.41 ? mmHg ? LVOT diameter ? 2.32 ? cm ? LVOT Vmax ? 1.17 ? m/sec ? LVOT VTI ?21.06 ?cm ? LVOT peak gradient ??5.49 ? mmHg ? LVOT mean gradient ??3.28 ? mmHg ? DOI (VTI) ? 0.87 ? ratio ? DOI (Vmax) ?0.83 ? ratio ? SV LVOT ? 88.74 ?ml ? SV LVOT Index ? 42 ? ml/m2 ? CO LVOT ? 7.69 ? l/min ? Cardiac index ? 3.65 ? l/min/m2 ? REID (continuity Vmax3.51 ? cm2 ? REID (continuity Vmax1.67 ? cm2/m2 ? REID (continuity VTI)3.65 ? cm ? REID (continuity VTI)1.73 ? cm2/m2 ? Tricuspid Valve ?Value ?Units (Range) ? TR Vmax ? 2.39 ? m/sec ? TR peak gradient ?22.78 ?mmHg ? RAP ? 3 ?mmHg ? RVSP ?26 ? mmHg ? This report has been electronically sign ed by: _ Yoshi Bolivar M.D. ? 03/13/2021 14:15:42 Images reviewed and interpretation [facility] Cardiac Ultrasound Laboratory Procedure Note Yoshi Bolivar MD - 03/13/2021Formatti ng of this note might be different from the original. Procedure: Transthoracic Echocardiogram Patient: RIO Torrez (Age): (60y) Med Rec#: [id number] Sex: M Site Loc: [facility] Ht / Wt: 174(cm)/96(kg) Pt. Loc: ICU BSA: 2.1 Study Date: 03/13/2021 Pt. 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 There is normal global left ventricul ar systolic function with an EF of 60-70% with no wall motion abnormalit ies. 2. The right ventricle is normal in size and function. Free wall strain is normal at -25.6% on GE echo machine. The estimated pulmonary artery systolic pressure is normal at 26 mmHg. 3. There is no hemodynamically significa nt valve disease. 4. There is moderate dilatation of the a ortic root. 4.4cm Findings : Left Ventricle: The left ventricular shayla mber size is normal. Mild concentric left ventricular hypert rophy is observed. There is no evidence of LVOT obstructio n. No ventricular septal defect is visuali zed. There is normal global left ventricular systolic function. Ejection fraction is estimated to be 65%. There are no left ventricular segmental wall motion abnormalities. Left ventricular diastolic function is normal. Doppler assessment is consistent with n ormal left sided filling pressure. Left Atrium: The left atrium is normal i n size. There is no patent foramen ovale visual ized. Right Ventricle: The right ventricle is normal in size. Right ventricular global systolic funct ion is normal. GS= -21.0, FWS= -25.6 (GE) The estimated pulmonary artery systolic pressure is 26 mmHg. The estimated right atrial pressure is 3 mmHg. Right Atrium: The right atrium appears n ormal. Aortic Valve: The aortic valve is tricus pid. The aortic valve leaflets are mildly th ickened. Systolic excursion of the aortic valve is normal. There is no evidence of aortic valve st enosis. There is no evidence of aortic regurgit ation. Mitral Valve: The mitral valve leaflets are mildly thickened. There is trace mitral regurgitation pre sent. Tricuspid Valve: The tricuspid valve stella ears normal in structure and function. There is trace tricuspid regurgitation present. Pulmonic Valve: The pulmonic valve appea rs normal in structure and function. There is trace pulmonic regurgitation p resent. Pericardium: There is no pericardial eff usion. Aorta: There is moderate dilatation of t he aortic root. 4.4cm There is mild dilatation of the ascendi ng aorta. 3.7cm Pulmonary Artery: The main pulmonary art juan appears normal. Venous: The inferior vena cava appears n ormal in size. There is a greater than 50% respiratory change in the inferior vena cava dimension. Misc: There is no hemodynamically signif icant valve disease. Two-dimensional echo, spectral Doppler and color Doppler performed. Optison contrast (one 3 ml vial) was us ed to enhance endocardial definition. Excess contrast was discarde d. Chambers 2D Value Units (Range) IVSd (2D) 1.25 cm LVPWd (2D) 1.16 cm IVS:LVPW ratio (2D) 1.08 ratio RWT (2D) 0.48 ratio RWT PW (2D) 0.46 ratio LVIDd (2D) 5.03 cm LVIDs (2D) 3.5 cm LVIDd (2D) index 2.39 cm/m2 LVIDs (2D) index 1.66 cm/m2 LV FS (2D) 30.51 % EF Teichholz (2D) 57.71 % Ao root diameter (2D4.45 cm (2.1 - 3.6) Ascending Ao 3.72 cm (2 - 3.5) Volumes/Mass Value Units (Range) LA Area 4 CH 14.3 cm2 (<21) LA ESV BP (A/L) inde19.27 ml/m2 RA AREA 4CH 12.8 cm2 LV mass (2D) 238.2 g LV mass (2D) index 113.16 g/m2 Diastolic/Systolic Function Value Units (Range) MV E-wave Vmax 0.68 m/sec MV deceleration ghox902.66 msec MV A-wave Vmax 0.85 m/sec MV E:A ratio 0.79 ratio LV septal e' Vmax 0.09 m/sec LV lateral e' Vmax 0.14 m/sec LV average e' Vmax 0.12 m/sec LV E:e' septal ratio7.53 ratio LV E:e' lateral rati4.84 ratio LV average E:e' rati5.89 ratio Aortic Valve Value Units (Range) AV Vmax 1.4 m/sec AV VTI 24.3 cm AV peak gradient 7.89 mmHg AV mean gradient 4.41 mmHg LVOT diameter 2.32 cm LVOT Vmax 1.17 m/sec LVOT VTI 21.06 cm LVOT peak gradient 5.49 mmHg LVOT mean gradient 3.28 mmHg DOI (VTI) 0.87 ratio DOI (Vmax) 0.83 ratio SV LVOT 88.74 ml SV LVOT Index 42 ml/m2 CO LVOT 7.69 l/min Cardiac index 3.65 l/min/m2 REID (continuity Vmax3.51 cm2 REID (continuity Vmax1.67 cm2/m2 REID (continuity VTI)3.65 cm REID (continuity VTI)1.73 cm2/m2 Tricuspid Valve Value Units (Range) TR Vmax 2.39 m/sec TR peak gradient 22.78 mmHg RAP 3 mmHg RVSP 26 mmHg This report has been electronically sign ed by: _ Yoshi Bolivar M.D. 03/13/2021 14:15 :42 Images reviewed and interpretation verif ied [facility] Cardiac Ultrasound Laboratory Marlene Rodríguez MD ECHO ORDERABLES (ABNORMAL) CK (03/13/2021 11:40 AM EST) athologist Signature CK, Total 10,859 (H) 0 - 200 [facility] unit/L [facility] LABORATORY Specimen Anatomical Collection Method Collection Time Receive d Time (Source) Location / / Volume Laterality Blood 03/13/2021 11:40 03/13/2021 AM EST 12:42 PM EST Resulting Agency Comment Spec In Lab Marlene Rodríguez MD CHEMISTRY ORDERABLES Performing Organization Address City/State/Z[place] [address] (ABNORMAL) Differential, Automated (03/13/2021 5:40 AM EST) Patholo gist Method Time Signature Neutrophils % 71.4 % [facility] LABORATORY Neutr Abs (ANC) 5.54 1.70 - [facility] 6.10 [facility] x10(3)/[facility] LABORATORY Lymphocytes % 11.3 % [facility]OR[facility] Lymphocytes Abs 0.9 0.9 - 3.2 [facility] x10(3)/[facility] LABORATORY Monocytes % 15.3 % [facility] Monocyte Abs 1.2 (H) 0.3 - 0.9 [facility] x10(3)/[facility] LABORATORY Eosinophils % 1.2 % [facility] Eosinophils Abs 0.1 0.0 - 0.4 [facility] x10(3)/[facility] LABORATORY Basophils % 0.3 % [facility] Basophils Abs 0.0 0.0 - 0.1 [facility] x10(3)/[facility] LABORATORY Immature Gran % 0.50 % [facility] Comment: Immature granulocytes(IG's)percentage an d absolute count will include metamyelocytes, myelocytes, and promyelo cytes. Blood smears from CBCs yielding IG's will be scanned manually for concor dance. If this scan disagrees with the automated IG or if promyelocytes are not ed, a manual differential will be performed. Lata Gran Abs 0.04 0.00 - 0.04 x10(3)/[facility] LABORATORY Specimen Anatomical Collection Method Collection Time Receive d Time (Source) Location / / Volume Laterality Blood 03/13/2021 5:40 AM 5:56 EST AM EST Resulting Agency Comment Spec In Lab Kamron Charles MD HEMATOLOGY ORDERABLES Performing Organization Address City/State/[place] [address] (ABNORMAL) Hemogram (03/13/2021 5:40 AM EST) Analysis Performed At Patho logist Time Signature WBC 7.8 4.0 - 9.5 [facility] x10(3)/[facility] LABORATORY RBC 3.09 (L) 4.58 - [facility] 5.54 [facility] x10(6)/[facility] LABORATORY Hemoglobin 8.8 (L) 13.7 - [facility] 16.5 g/dL [facility] Hematocrit 27.6 (L) 40.5 - [facility] % [facility] MCV 89.3 82.9 - [facility] 93.1 fL [facility] MCH 28.5 27.5 - [facility] 32.1 pg [facility] MCHC 31.9 (L) 32.0 - [facility] 35.7 g/dL [facility] Platelets 294 145 - 357 [facility] x10(3)/[facility] LABORATORY RDWSD 42.4 36.0 - [facility] 45.0 [facility] LABORATORY RDWCV 13.0 11.4 - [facility] 13.8 % [facility] LABOR[facility]ORY MPV 8.8 7.6 - 12.9 [facility] LABORATORY nRBC % Auto 0.0 % [facility] LAB[facility] nRBC Abs Auto 0.000 0.000 - [facility] 0.000 [facility] x10(3)/[facility] LABORATORY Specimen Anatomical Collection Method Collection Time Receive d Time (Source) Location / / Volume Laterality Blood 03/13/2021 5:40 AM 2 5:56 EST AM EST Resulting Agency Comment Spec In Lab Kamron Charles MD HEMATOLOGY ORDERABLES Performing Organization Address City/State/Z[place] [address] Heparin (unfractionated) Level (03/13/2021 5:40 AM EST) P athologist Signature Heparin UFH 0.27 IU/mL [facility] LABORATORY Comment: Heparin (anti-Xa) levels should [...] (Source) Location / / Volume Laterality Blood 03/13/2021 5:40 AM 2 5:56 EST AM EST Resulting Agency Comment Spec In Lab Rosemary Wiley MD HEMATOLOGY ORDERABLES Performing Organization Address City/State/[place] [address] (ABNORMAL) CK (03/13/2021 5:40 AM EST) athologist [facility] CK, Total 9,271 (H) 0 - 200 [facility] unit/L [facility] Specimen Anatomical Collection Method Collection Time Receive d Time (Source) Location / / Volume Laterality Blood 03/13/2021 5:40 AM 2 5:56 EST AM EST Resulting Agency Comment Spec In Lab Martine Gerardo DO CHEMISTRY ORDERABLES Performing Organization Address City/[facility]/ZIP Code Phon e Number [address] Phosphorus (03/13/2021 5:40 AM EST) athologist [facility] Phosphorus 2.5 2.5 - 4.5 [facility] Specimen Anatomical Collection Method Collection Time Receive d Time (Source) Location / / Volume Laterality Blood 03/13/2021 5:40 AM 2 5:56 EST AM EST Resulting Agency Comment Spec In Lab Martine Terri Gerardo DO CHEMISTRY ORDERABLES Performing Organization Address City/State/[place] [address] (ABNORMAL) Basic Metabolic Panel (non-fasting) (03/13/2021 5:40 AM EST) athologist [facility] Glucose Lvl 126 65 - 199 [facility] mg/dL [facility] Comment: Diabetes: >=200 mg/dL plus symp toms BUN 10 10 - 20 mg/dL [facility] Creatinine 0.61 (L) 0.80 - 1.50 mg/dL [facility] LABORATORY Sodium 136 135 - 145 mmol/L [facility]ORY Potassium 3.8 3.5 - 5.0 mmol/L [facility] LAB[facility] Comment: Please note: ??Patients with WBC >100,00 0 may have falsely elevated Potassium levels. ??For accurate Potassium quantif ication in these patients send serum separator tube (gold top) for subsequent determinations. ??Contact the Clinical Chemistry Laboratory if there are any qu estions. Chloride 105 98 - 107 mmol/L [facility] CO2 23 22 - 31 mmol/L [facility] Anion Gap 8 5 - 15 mmol/L [facility] Calcium 7.8 (L) 8.5 - 10.5 mg/dL [facility]ORATORY Estimated GFR 108 >=60 mL/min/1.73 m?? [facility] Comment: This patient? s estimated glomerular filtration rate (eGFR) is between 108 mL/min/1.73 m2 (patients with less muscl e mass per kg body weight) and 125 mL/min/1.73 m2 (patients with more muscl e [...] (Source) Location / / Volume Laterality Blood 03/13/2021 5:40 AM 2 5:56 EST AM EST Resulting Agency Comment Spec In Lab Martine Gerardo DO CHEMISTRY ORDERABLES Performing Organization Address City/State/ZIP [place] [address] Magnesium (03/13/2021 5:40 AM EST) P athologist Signature Magnesium 1.03 0.69 - 1.07 [facility]/L [facility] Comment: result rechecked-SW Specimen Anatomical Collection Method Collection Time Receive d Time (Source) Location / / Volume Laterality Blood 03/13/2021 5:40 AM 2 5:56 EST AM EST Resulting Agency Comment Spec In Lab Martine Stack Humaira DO CHEMISTRY ORDERABLES Performing Organization Address City/State/Z[place] [address] (ABNORMAL) Blood Gas Arterial (03/13/2021 5:35 AM EST) P athologist Signature pH Art 7.41 7.35 - 7.45 [facility] Comment: Sample contains one or more air bubbles which may result in falsely elevated pO2, decreased pCO2 and increased pH. pCO2 Art 40 35 - 45 mmHg [facility] LABORATORY Comment: Sample contains one or more air bubbles which may result in falsely elevated pO2, decreased pCO2 and increased pH. pO2 Art 74 (L) 85 - 104 mmHg [facility] LAB[facility] Comment: Sample contains one or more air bubbles which may result in falsely elevated pO2, decreased pCO2 and increased pH. HCO3 Art 25.0 20.0 - 26.0 mmol/L [facility] LABOR[facility] BE Art 0.4 -3.0 - 3.0 mmol/L [facility] Hgb Blood Gas 9.9 (L) 13.7 - 16.5 g/dL [facility] LABORAT[facility] O2HB Art 93.8 (L) 94.0 - 97.0 % [facility] COHB Art 0.7 % [facility] Comment: Nonsmokers: ??0.5-1.5% COHB Smokers: ??Variable, but usually less th an 10% Toxic: 20 - 30% COHB Lethal: ??Greater than 60% COHB METHB Art 0.3 <=1.5 % [facility] Na Whole Blood 133 (L) 135 - 145 mmol/L [facility] K Whole Blood 3.7 3.5 - 5.0 mmol/L [facility] LAB[facility] Comment: Please note: ??Patients with WBC >100,00 0 may have falsely elevated Potassium levels. ??Contact the Clinical Chemistry Laboratory if there are any questions. ICa Whole Blood 1.09 (L) 1.15 - 1.33 mmol/L [facility] Comment: Note: ??Total bilirubin higher than 20 m g/dL may lead to falsely low ionized calcium. CL Whole Blood 104 98 - 107 mmol/L [facility] Gluc Whole Bld 128 65 - 199 mg/dL [facility] Comment: Diabetes: >=200 mg/dL plus symp toms. Lactate WB 1.2 0.5 - 2.2 mmol/L [facility] LABOR[facility] Specimen Anatomical Collection Method Collection Time Receive d Time (Source) Location / / Volume Laterality Blood Arterial Draw / 03/13/2021 5:35 AM 2021 5:55 Unknown EST AM EST Resulting Agency Comment Spec In Lab Kamron Charles MD CHEMISTRY ORDERABLES Performing Organization Address City/State/ZIP Code Phon e Number [place] [phone] [address] LAB[address] Drive (ABNORMAL) Differential, Automated (03/13/2021 12:00 AM EST) [facility] gist Method Time Signature Neutrophils % 73.8 % [facility]ORY Neutr Abs (ANC) 6.83 (H) 1.70 - [facility] 6.10 [facility] x10(3)/[facility] LABORATORY Lymphocytes % 12.5 % [facility]OR[facility]ORY Lymphocytes Abs 1.2 0.9 - 3.2 [facility] x10(3)[facility] LABORATORY Monocytes % 12.9 % [facility]OR[facility]ORY Monocyte Abs 1.2 (H) 0.3 - 0.9 [facility] x10(3)/[facility] LABORATORY Eosinophils % 0.1 % [facility]ORATORY Eosinophils Abs 0.0 0.0 - 0.4 [facility] x10(3)[facility] LABORATORY Basophils % 0.3 % [facility] Basophils Abs 0.0 0.0 - 0.1 [facility] x10(3)[facility] LABORATORY Immature Gran % 0.40 % [facility] Comment: Immature granulocytes(IG's)percentage an d absolute count will include metamyelocytes, myelocytes, and promyelo cytes. Blood smears from CBCs yielding IG's will be scanned manually for concor dance. If this scan disagrees with the automated IG or if promyelocytes are not ed, a manual differential will be performed. Lata Gran Abs 0.04 0.00 - 0.04 x10(3)/[facility] LABORATORY Specimen (Source) Anatomical Collection Method Collection Time Re ceived Time Location / / Volume Laterality Blood 03/13/2021 03/13/2021 12:2 4 AM EST Resulting Agency Comment Spec In Lab Kamron Charles MD HEMATOLOGY ORDERABLES Performing Organization Address City/State/Z[place] [address] (ABNORMAL) Hemogram (03/13/2021 12:00 AM EST) Analysis Performed At Patho logist Time Signature WBC 9.3 4.0 - 9.5 [facility] x10(3)/[facility] LABORATORY RBC 3.21 (L) 4.58 - [facility] x10(6)/[facility] LABORATORY Hemoglobin 9.3 (L) 13.7 - [facility] 16.[facility] g/dL [facility] Hematocrit 28.4 (L) 40.5 - [facility] 48.5 % [facility] MCV 88.5 82.9 - [facility]1 [facility] LAB[facility]ATORY MCH 29.0 27.5 - [facility] 32.1 pg [facility] MCHC 32.7 32.0 - [facility] 35.7 g/dL [facility] Platelets 298 145 - 357 [facility] x10(3)/[facility] LABORATORY RDWSD 42.0 36.0 - [facility]0 [facility] LAB[facility]ATORY RDWCV 12.9 11.4 - [facility] 13.8 % [facility] LAB[facility] MPV 9.0 7.6 - 12.9 [facility] LABORATORY nRBC % Auto 0.0 % [facility] LABORATORY nRBC Abs Auto 0.000 0.000 - [facility] 0.000 [facility] x10(3)/[facility] LABORATORY Specimen (Source) Anatomical Collection Method Collection Time Re ceived Time Location / / Volume Laterality Blood 03/13/2021 03/13/2021 12:2 4 AM EST Resulting Agency Comment Spec In Lab Kamron Charles MD HEMATOLOGY ORDERABLES Performing Organization Address City/State/ZIP Code Phon e Number [place] [phone]OSPITAL LAB[address]ORY Drive Heparin (unfractionated) Level (03/13/2021 12:00 AM EST) athologist Signature Heparin UFH 0.94 IU/mL [facility] LABORATORY Comment: Heparin (anti-Xa) levels should [...] cardiac surgery): 0.1 ? 0.3 IU/mL Specimen (Source) Anatomical Collection Method Collection Time Re ceived Time Location / / Volume Laterality Blood 03/13/2021 03/13/2021 12:2 4 AM EST Resulting Agency Comment Spec In Lab Rosemary Wiley MD HEMATOLOGY ORDERABLES Performing Organization Address City/State/ZIP Code Phon e Number [place] [phone]OS[address] LAB[address]ORY Drive (ABNORMAL) CK (03/13/2021 12:00 AM EST) athologist Signature CK, Total 7,740 (H) 0 - 200 [facility] unit/L [facility] LABOR[facility]ORY Specimen (Source) Anatomical Collection Method Collection Time Re ceived Time Location / / Volume Laterality Blood 03/13/2021 03/13/2021 12:2 4 AM EST Resulting Agency Comment Spec In Lab Martine Terri A Atchinson DO CHEMISTRY ORDERABLES Performing Organization Address City/State/ZIP Code Phon e Number [address] Phosphorus (03/13/2021 12:00 AM EST) P athologist Signature Phosphorus 3.1 2.5 - 4.5 [facility] mg/dL [facility] Specimen (Source) Anatomical Collection Method Collection Time Re ceived Time Location / / Volume Laterality Blood 03/13/2021 03/13/2021 12:2 4 AM EST Resulting Agency Comment Spec In Lab Martine Stack Humaira DO CHEMISTRY ORDERABLES Performing Organization Address City/State/ZIP Code Phon e Number [address] (ABNORMAL) Basic Metabolic Panel (non-fasting) (03/13/2021 12:00 AM EST) athologist Signature Glucose Lvl 161 65 - 199 [facility] mg/dL [facility] Comment: Diabetes: >=200 mg/dL plus symp toms BUN 15 10 - 20 mg/dL [facility] Creatinine 0.73 (L) 0.80 - 1.50 mg/dL [facility] Sodium 132 (L) 135 - 145 mmol/L [facility] Potassium 3.4 (L) 3.5 - 5.0 mmol/L [facility] Comment: Please note: ??Patients with WBC >100,00 0 may have falsely elevated Potassium levels. ??For accurate Potassium quantif ication in these patients send serum separator tube (gold top) for subsequent determinations. ??Contact the Clinical Chemistry Laboratory if there are any qu estions. Chloride 101 98 - 107 mmol/L [facility] CO2 23 22 - 31 mmol/L [facility] Anion Gap 8 5 - 15 mmol/L [facility] Calcium 7.8 (L) 8.5 - 10.5 mg/dL [facility] Estimated GFR 100 >=60 mL/min/1.73 m?? [facility] Comment: This patient? s estimated glomerular filtration rate (eGFR) is between 100 mL/min/1.73 m2 (patients with less muscl e mass per kg body weight) and 116 mL/min/1.73 m2 (patients with more muscl e [...] and symptoms in addition to eGFR. Specimen (Source) Anatomical Collection Method Collection Time Re ceived Time Location / / Volume Laterality Blood 03/13/2021 03/13/2021 12:2 4 AM EST Resulting Agency Comment Spec In Lab Martine Gerardo DO CHEMISTRY ORDERABLES Performing Organization Address City/State/[place] [address] (ABNORMAL) Magnesium (03/13/2021 12:00 AM EST) P athologist Signature Magnesium 0.68 (L) 0.69 - 1.07 [facility] mmol/L [facility] Specimen (Source) Anatomical Collection Method Collection Time Re ceived Time Location / / Volume Laterality Blood 03/13/2021 03/13/2021 12:2 4 AM EST Resulting Agency Comment Spec In Lab Martine Gerardo DO CHEMISTRY ORDERABLES Performing Organization Address City/State/[place] [address] (ABNORMAL) Blood Gas Arterial (03/12/2021 11:47 PM EST) Analysis Performed At Patho logist Time Signature pH Art 7.40 7.35 - [facility] 7.45 [facility] pCO2 Art 37 35 - 45 [facility] mmHg [facility] pO2 Art 76 (L) 85 - 104 [facility]ORY HCO3 Art 22.6 20.0 - [facility] 26.0 [facility] mmol/L [facility] BE Art -2.2 -3.0 - 3.0 [facility] mmol/L [facility] Hgb Blood Gas 10.0 (L) 13.7 - [facility] 16.5 g/dL [facility] O2HB Art 94.2 94.0 - [facility] 97.0 % [facility] COHB Art 0.8 % [facility] Comment: Nonsmokers: ??0.5-1.5% COHB Smokers: ??Variable, but usually less th an 10% Toxic: 20 - 30% COHB Lethal: ??Greater than 60% COHB METHB Art 0.3 <=1.5 % [facility] Na Whole Blood 132 (L) 135 - 145 mmol/L [facility] K Whole Blood 3.3 (L) 3.5 - 5.0 mmol/L [facility] Comment: Please note: ??Patients with WBC >100,00 0 may have falsely elevated Potassium levels. ??Contact the Clinical Chemistry Laboratory if there are any questions. ICa Whole Blood 1.06 (L) 1.15 - 1.33 mmol/L [facility] Comment: Note: ??Total bilirubin higher than 20 m g/dL may lead to falsely low ionized calcium. CL Whole Blood 103 98 - 107 mmol/L [facility] Gluc Whole Bld 172 65 - 199 mg/dL [facility] Comment: Diabetes: >=200 mg/dL plus symp toms. Lactate WB 0.9 0.5 - 2.2 mmol/L [facility] Specimen Anatomical Collection Method Collection Time Receive d Time (Source) Location / / Volume Laterality Blood Arterial Draw / 03/12/2021 11:47 03/13/19 22 Unknown PM EST 12:24 AM EST Resulting Agency Comment Spec In Lab Martine Gerardo DO CHEMISTRY ORDERABLES Performing Organization Address City/State/ZIP [place] [address] (ABNORMAL) BLOOD GAS 2 ARTERIAL (03/12/2021 5:23 PM EST) Analysis Performed At Patho logist Time Signature pH Art 7.36 7.35 - [facility] 7.45 [facility] pCO2 Art 34 (L) 35 - 45 [facility] pO2 Art 75 (L) 85 - 104 [facility] HCO3 Art 19.0 (L) 20.0 - [facility] 26.0 [facility] mmol/L [facility] BE Art -6.4 (L) -3.0 - 3.0 [facility] mmol/L [facility] Hgb Blood Gas 11.3 (L) 13.7 - [facility] 16.5 g/dL [facility] O2HB Art 92.6 (L) 94.0 - [facility] 97.0 % [facility] COHB Art 0.3 % [facility] Comment: Nonsmokers: 0.5-1.5% COHB Smokers: Variable, but usually less than 10% Toxic: 20-30% COHB Lethal: Greater than 60% COHB METHB Art 0.6 <=1.5 % [facility] Na Whole Blood 134 (L) 135 - 145 mmol/L [facility] K Whole Blood 3.7 3.5 - 5.0 mmol/L [facility] Comment: Please note: Patients with WBC >100,000 may have falsely elevated Potassium levels. Contact the Clinical Chemistry L aboratory if there are any questions. ICa Whole Blood 1.09 (L) 1.15 - 1.33 mmol/L [facility] Comment: Note: ??Total bilirubin higher than 20 m g/dL may lead to falsely low ionized calcium. CL Whole Blood 105 98 - 107 mmol/L [facility] Gluc Whole Bld 145 65 - 199 mg/dL [facility] Comment: Diabetes: >=200 mg/dL plus symp toms. Lactate WB 1.3 0.5 - 2.2 mmol/L [facility] FIO2 Art 21 % [facility] PF Ratio Art 357 [facility] Specimen Anatomical Collection Method Collection Time Receive d Time (Source) Location / / Volume Laterality Blood 03/12/2021 5:23 PM 2 5:23 EST PM EST Martine Gerardo DO CHEMISTRY ORDERABLES Performing Organization Address City/State/ZIP Code Phon e Number [address] (ABNORMAL) CK (03/12/2021 4:51 PM EST) P athologist Signature CK, Total 5,625 (H) 0 - 200 [facility] Comment: result rechecked- Specimen Anatomical Collection Method Collection Time Receive d Time (Source) Location / / Volume Laterality Blood Venous Draw / 03/12/2021 4:51 PM 03/12/19 22 5:16 Unknown EST PM EST Resulting Agency Comment Spec In Lab Kamron Charles MD CHEMISTRY ORDERABLES Performing Organization Address City/[facility]/[place] [address] (ABNORMAL) Differential, Automated (03/12/2021 4:51 PM EST) [facility] Method Time Signature Neutrophils % 77.7 % [facility] Neutr Abs (ANC) 11.01 (H) 1.70 - [facility] 6.10 [facility] x10(3)/[facility] LABORATORY Lymphocytes % 12.9 % [facility] Lymphocytes Abs 1.8 0.9 - 3.2 [facility] x10(3)/[facility] LABORATORY Monocytes % 8.8 % [facility] Monocyte Abs 1.2 (H) 0.3 - 0.9 [facility] x10(3)/[facility] LABORATORY Eosinophils % 0.1 % [facility] Eosinophils Abs 0.0 0.0 - 0.4 [facility] x10(3)/[facility] LABORATORY Basophils % 0.1 % [facility] Basophils Abs 0.0 0.0 - 0.1 [facility] x10(3)/[facility] LABORATORY Immature Gran % 0.40 % [facility] Comment: Immature granulocytes(IG's)percentage an d absolute count will include metamyelocytes, myelocytes, and promyelo cytes. Blood smears from CBCs yielding IG's will be scanned manually for miguel a wu. If this scan disagrees with the automated IG or if promyelocytes are not ed, a manual differential will be performed. Lata Gran Abs 0.06 (H) 0.00 - 0.04 x10(3)/[facility] LABORATORY Specimen Anatomical Collection Method Collection Time Receive d Time (Source) Location / / Volume Laterality Blood 03/12/2021 4:51 PM 5:16 EST PM EST Resulting Agency Comment Spec In Lab Kamron Charles MD HEMATOLOGY ORDERABLES Performing Organization Address City/State/ZIP Code Phon e Number [place] [phone] [address] (ABNORMAL) Hemogram (03/12/2021 4:51 PM EST) Analysis Performed At Patho logist Time Signature WBC 14.2 (H) 4.0 - 9.5 [facility] x10(3)/[facility] LABORATORY RBC 3.63 (L) 4.58 - [facility] 5.54 [facility] x10(6)/[facility] LABORATORY Hemoglobin 10.6 (L) 13.7 - [facility] 16.5 g/dL [facility] Hematocrit 32.7 (L) 40.5 - [facility] 48.5 % [facility] MCV 90.1 82.9 - [facility] 93.1 [facility] LABORATORY MCH 29.2 27.5 - [facility] CHANG 32.1 pg [facility] MCHC 32.4 32.0 - [facility] 35.7 g/dL [facility] Platelets 409 (H) 145 - 357 [facility] x10(3)/[facility] LABORATORY RDWSD 43.0 36.0 - [facility] 45.0 [facility] LAB[facility]ORY RDWCV 12.9 11.4 - [facility] 13.8 % [facility] MPV 9.2 7.6 - 12.9 [facility] LABORATORY nRBC % Auto 0.0 % [facility] nRBC Abs Auto 0.000 0.000 - [facility] 0.000 [facility] x10(3)/[facility] LABORATORY Specimen Anatomical Collection Method Collection Time Receive d Time (Source) Location / / Volume Laterality Blood 03/12/2021 4:51 PM 2 5:16 EST PM EST Resulting Agency Comment Spec In Lab Kamron Charles MD HEMATOLOGY ORDERABLES Performing Organization Address City/[facility]/[place] [address] (ABNORMAL) Prothrombin Time (03/12/2021 4:51 PM EST) athologist Signature PT 20.6 (H) 9.4 - 12.5 [facility] LABORATORY INR 1.8 [facility] Comment: An INR <2.0 [...] (Source) Location / / Volume Laterality Blood 03/12/2021 4:51 PM 2 5:16 EST PM EST Resulting Agency Comment Spec In Lab Martine Gerardo DO HEMATOLOGY ORDERABLES Performing Organization Address City/[facility]/ZIP Code Phon e Number [place] [phone] (ABNORMAL) APTT (03/12/2021 4:51 PM EST) P athologist Signature PTT >160 25 - 37 [facility] (Critical) [facility] Comment: Critical Result called by ?? LEFTJA CRI TICAL Results read back by: ? REGGIE PONCE at 2021-03-12 18:03:57 The PTT is NOT appropriate for heparin m onitoring. Use the Anti-Xa level for heparin monitoring (HEP UFH) or LMWH mon itoring (HEP LMW). A PTT less than 37 seconds generally indicates adequate hem ostasis. Specimen Anatomical Collection Method Collection Time Receive d Time (Source) Location / / Volume Laterality Blood 03/12/2021 4:51 PM 2 5:16 EST PM EST Resulting Agency Comment Spec In Lab Martine Stack Ashlydesiree AVILES HEMATOLOGY ORDERABLES Performing Organization Address City/[facility]/ZIP Code Phon e Number [address] Phosphorus (03/12/2021 4:51 PM EST) athologist Signature Phosphorus 3.6 2.5 - 4.5 [facility] Specimen Anatomical Collection Method Collection Time Receive d Time (Source) Location / / Volume Laterality Blood 03/12/2021 4:51 PM 2 5:16 EST PM EST Resulting Agency Comment Spec In Lab Martine Stack Mounikagifty AVILES CHEMISTRY ORDERABLES Performing Organization Address City/[facility]/[place] [address] Magnesium (03/12/2021 4:51 PM EST) athologist Signature Magnesium 0.76 0.69 - 1.07 [facility] mmol/L [facility] Specimen Anatomical Collection Method Collection Time Receive d Time (Source) Location / / Volume Laterality Blood 03/12/2021 4:51 PM 2 5:16 EST PM EST Resulting Agency Comment Spec In Lab Martine Stack Fadypablitonataliegifty AVILES CHEMISTRY ORDERABLES Performing Organization Address City/[facility]/ZIP [facility] [place] [address] (ABNORMAL) Basic Metabolic Panel (non-fasting) (03/12/2021 4:51 PM EST) athologist Signature Glucose Lvl 149 65 - 199 [facility] mg/dL [facility] Comment: Diabetes: >=200 mg/dL plus symp toms BUN 15 10 - 20 mg/dL [facility] Creatinine 0.78 (L) 0.80 - 1.50 mg/dL [facility] Sodium 138 135 - 145 mmol/L [facility] Potassium 4.3 3.5 - 5.0 mmol/L [facility] Comment: Please note: ??Patients with WBC >100,00 0 may have falsely elevated Potassium levels. ??For accurate Potassium quantif ication in these patients send serum separator tube (gold top) for subsequent determinations. ??Contact the Clinical Chemistry Laboratory if there are any qu estions. Chloride 107 98 - 107 mmol/L [facility] CO2 17 (L) 22 - 31 mmol/L [facility] Anion Gap 14 5 - 15 mmol/L [facility] Calcium 8.0 (L) 8.5 - 10.5 mg/dL [facility] Estimated GFR 97 >=60 mL/min/1.73 m?? [facility] Comment: This patient? s estimated glomerular filtration rate (eGFR) is between 97 mL/min/1.73 m2 (patients with less muscl e mass per kg body weight) and 113 mL/min/1.73 m2 (patients with more muscl e [...] (Source) Location / / Volume Laterality Blood 03/12/2021 4:51 PM 5:16 EST PM EST Resulting Agency Comment Spec In Lab Martine Gerardo DO CHEMISTRY ORDERABLES Performing Organization Address City/State/Z[place] [address] (ABNORMAL) Heparin (unfractionated) Level (03/12/2021 4:51 PM EST) [employer] Method Time Signature Heparin UFH >2.00 IU/mL [facility] (Critical) [facility] Comment: Critical Result called by ?? MARVAJA CRI TICAL Results read back by: ? REGGIE PONCE at 2021-03-12 18:03:57 Heparin (anti-Xa) levels should be deter mined [...] (Source) Location / / Volume Laterality Blood 03/12/2021 4:51 PM 2 5:16 EST PM EST Resulting Agency Comment Spec In Lab Rosemary Wiley MD HEMATOLOGY ORDERABLES Performing Organization Address City/State/ZIP Code Phon e Number [address] Prepare RBC (03/12/2021 4:40 PM EST) P athologist Signature Dispensed? No [facility] Specimen Anatomical Collection Method Collection Time Receive d Time (Source) Location / / Volume Laterality Blood 03/12/2021 4:40 PM 2 4:39 EST PM EST Nilda Tineo CRNA BLOOD BANK ORDERABLES Performing Organization Address City/State/ZIP Code Phon e Number [address] (ABNORMAL) CK (03/12/2021 3:27 PM EST) P athologist Signature CK, Total 2,740 (H) 0 - 200 [facility] unit/L [facility] Specimen Anatomical Collection Method Collection Time Receive d Time (Source) Location / / Volume Laterality Blood 03/12/2021 3:27 PM 2 3:35 EST PM EST Resulting Agency Comment Spec In Lab Martinedeep Murray Sreekanth Gerardo DO CHEMISTRY ORDERABLES Performing Organization Address City/State/Z[place] [address] (ABNORMAL) BLOOD GAS 2 ARTERIAL (03/12/2021 12:09 PM EST) Analysis Performed At Patho logist Time Signature pH Art 7.40 7.35 - [facility] 7.45 [facility] pCO2 Art 38 35 - 45 [facility] mmHg [facility] pO2 Art 248 (H) 85 - 104 [facility]ORY HCO3 Art 23.2 20.0 - [facility] 26.0 [facility] mmol/L [facility] BE Art -1.7 -3.0 - 3.0 [facility] mmol/L [facility] Hgb Blood Gas 11.4 (L) 13.7 - [facility] 16.5 g/dL [facility] O2HB Art 98.8 (H) 94.0 - [facility] 97.0 % [facility] COHB Art 0.3 % [facility] Comment: Nonsmokers: 0.5-1.5% COHB Smokers: Variable, but usually less than 10% Toxic: 20-30% COHB Lethal: Greater than 60% COHB METHB Art 0.3 <=1.5 % [facility] Na Whole Blood 136 135 - 145 mmol/L [facility] K Whole Blood 4.0 3.5 - 5.0 mmol/L [facility] Comment: Please note: Patients with WBC >100,000 may have falsely elevated Potassium levels. Contact the Clinical Chemistry L aboratory if there are any questions. ICa Whole Blood 1.10 (L) 1.15 - 1.33 mmol/L [facility] Comment: Note: ??Total bilirubin higher than 20 m g/dL may lead to falsely low ionized calcium. CL Whole Blood 105 98 - 107 mmol/L [facility] Gluc Whole Bld 116 65 - 199 mg/dL [facility] Comment: Diabetes: >=200 mg/dL plus symp toms. Lactate WB 0.7 0.5 - 2.2 mmol/L [facility] FIO2 Art 66 % [facility] Flow Art 0.6 LPM [facility] PF Ratio Art 376 [facility] Temp Art 36.9 Celsius [facility] Specimen Anatomical Collection Method Collection Time Receive d Time (Source) Location / / Volume Laterality Blood 03/12/2021 12:09 03/12/2021 PM EST 12:09 PM EST Rosemary Wiley MD CHEMISTRY ORDERABLES Performing Organization Address City/[facility]/ZIP [place] [address] IR OR VASC Aniogram Image Storage Only (03/12/2021 12:08 PM EST) Specimen (Source) Anatomical Location Collection Method / Collectio n Time Received Time / Laterality Volume Narrative RAD - 03/12/2021 12:08 PM EST This exam is auto-finalizing. It's purpo se is for storage only. Marlene Rodríguez MD IMG FILM LIBRARY ORDERABLES Performing Organization Address City/[facility]/ZIP Code Phon e Number [place], [place] COVID-19 PCR (03/12/2021 10:40 AM EST) [employer] Method Time Signature SARS-CoV-2 Not Detected Not Detected [facility] RNA PCR [facility] Comment: This result should be interpreted in com bination with the clinical observations, patient history and epidem iological information. For testing of asymptomatic individuals, assay performa nce characteristics and clinical utility have not been evaluated. Testing for SARS-CoV-2 (Severe acute respiratory syndrome coronavirus 2, form erly known as 2019 novel coronavirus or 2019-nCoV) to aid in the diagnosis of CO VID-19 is performed using the Simplexa COVID-19 Direct Assay by [employer] direct [employer] conceptsanjelica huber as authorized by the FDA issued Emergency Use Authorization (EUA). This assay is intended for In-vitro Diagnostic (IVD) use with nasopharyngeal swabs collected from individuals meeting the CDC criteria for testing. e assay is performed based on the instructions for use and additional guid ance provided by the FDA. Testing is performed in the Microbiology Laboratory within the Department of Pathology and Laboratory Medicine at [facility], certified under the Clinical Laboratory Improvement Amendmen ts of 1988 (CLIA), 42 U.S.C. section 263a, to perform high complexity tests. Assay performance has been verified according to clinical laboratory regulat ory requirements. Test results are provided above. A resul t of Not Detected indicates that the viral RNA target is not present but does not preclude SARS-CoV-2 infection. False negative results may occur if a sp ecimen is improperly collected, transported or handled; if amplification inhibitors are present; or if inadequate numbers of viral particles ar e present in the specimen. A result of Detected suggests a current or recent infection and the patient is presumed to be infected. Positive and negative pr edictive values for this test are highly dependent on disease prevalence. A result of Invalid indicates the inability to conclusively determine the presence or absence of SARS-CoV-2 RNA in the sample which can be due to a vari ety of factors. Recollection is recommended in the case of an invalid re sult. CDC COVID-19 criteria for testing on hum an specimens and clinical management guidance information are available at [facility] CDC Coronavirus Disease 2019 (COVID-19) webpage under Information fo r Healthcare Professionals (https://www.cdc.gov/coronavirus/2019-nc ov/hcp/index.html). Additional information about this and ot her EUA tests can be found in provider and patient fact sheets at the following FDA website: https://www.fda.gov/medical-devices/idwcznxwohn-xgajhuh-7515-wabur-03-uqruhutbw- uaw-vrdivdtoqhxrwn-lcrzajh-devices/grqvl-chegvuxubkt-wkpu SARS-CoV-2 Source COMPUTATIONAL CHEMIST Swab [facility] Specimen (Source) Anatomical Collection Method Collection Time Re ceived Time Location / / Volume Laterality Nasopharyngeal Swab 03/12/2021 10:40 03/02 AM EST 12:37 PM EST Comment: Symptoms->Surveillance Resulting Agency Comment Spec In Lab Reinaldo Merino MD MICROBIOLOGY - GENERAL ORDER LARRY Performing Organization Address City/State/Z[place] [address] Prepare RBC (03/12/2021 10:15 AM EST) P athologist Signature Dispensed? Yes [facility] Specimen Anatomical Collection Method Collection Time Receive d Time (Source) Location / / Volume Laterality Blood 03/12/2021 10:15 03/12/2021 AM EST 10:12 AM EST Nilda Tineo CRNA BLOOD BANK ORDERABLES Performing Organization Address City/State/Z[place] [address] Duplex for DVT, Leg, Unilat (03/12/2021 8:49 AM EST) Component Value Ref Test Analysis Performed At Patholo gist Range Method Time Signature VB Text Department: Vascular Surgery Lab VASCUBASE Report Patient: [id number] (AMILCAR PATE) CPT: 31064 Referring Physician: REINALDO MERINO ?? Phone: Indications: STAT RLE DVT iliocaval DVT seen on venogram, w/ RLE calf pain and swelling, ? extent of DVT in RLE Findings: RIGHT: Occlusive deep vein thrombosis in the common femoral vein, saphenofemoral junction, popliteal vein, tibioperoneal norbert nk vein, profunda femoris vein, and one of the paired peroneal veins. Non-occlusive deep vein thrombosis in the femoral vein throu gh the thigh, posterior tibial veins, and one of the paired peroneal veins . Occlusive superficial vein thrombosis throughout the great s aphenous vein. Patent LEFT common femoral vein with spontaneous, respiropha sic Doppler waveforms that respond normally to augmentation maneuvers. Interpretation: RIGHT: Extensive acute deep vein thrombosis throughout the r ight lower extremity. Acute occlusive superficial vein thro mbosis in the great saphenous vein. Notification: Dr. Wiley and Madhuri Charles were informed of these preliminary findings. Comparison: ??No previous study in our vascular lab da tabase for comparison. Electronically Signed by: ROSEMARY WILEY on 2021-03-13 11:28:31 AM VB Text End of Report [email or web address] Report Specimen (Source) Anatomical Collection Method Collection Time Re ceived Time Location / / Volume Laterality 03/12/2021 8:49 AM EST Reinaldo Merino MD VASCULAR ORDERABLES Performing Organization Address City/State/ZIP Code Phon e Number [id number] (ABNORMAL) CT Venogram Abdomen & Pelvis (03/12/2021 8:12 AM EST) Anatomical Region Laterality Modality Abdomen, Pelvis Computed Tomography Specimen (Source) Anatomical Collection Method Collection Time Re ceived Time Location / / Volume Laterality 03/12/2021 8:32 AM EST Impressions 03/12/2021 8:38 AM EST 1. ??No CT angiographic evidence of pulm onary thromboembolism. 2. 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 ??The thrombus within the right in ternal, external iliac and common femoral veins is new. ?? 3. ??Thrombus extends into a prominent l eft lumbar vein, presumably collateral venous drainage secondary to stenosis of the infrarenal IVC. ?? 4. ??Where visualized, patent bilateral superficial femoral and profundus femoral veins. 5. ??Prominent collateral venous drainag e including paraspinal veins, venous plexus of the lumbar ventral thecal sac, and engorgement of the azygos / hemiazygos veins. 6. ??Edematous changes throughout the re troperitoneum extending into the pelvis, likely related to venous congestion due to thrombus. 7. ??Unexpected Finding: Irregular soft tissue thickening and nodularity at the gastroesophageal junction extending of t he distal esophagus, concerning for underlying neoplasm. ??Gastroenterology consultation is recommended. 8. ??Dependent atelectasis bilaterally. ??Focal 22 mm region of nodular consolidation within the dependent atele ctasis, favored to represent more focal atelectasis but does remain indeterminat e. ??Follow-up CT of the chest, possibly in 6-12 weeks, is recommended to ensure stability or resolution. ??Prone imaging may be of benefit. 9. ??14 mm left upper lobe groundglass n odule. ??This can be further evaluated the time of follow-up CT of the chest. Thank you for letting us participate in the care of this patient. ??If you are a health care provider and have any questi ons regarding this report, please contact the number below. ??For patients who have questions please contact the health director long term care that requested your imaging first. ? Electronically signed by: Steven Painting DO, [facility] ([phone]), at 03/12/2021 8:38 AM Narrative 03/12/2021 8:38 AM EST EXAMINATION: * ??CTA CHEST PULMONARY EMBOLISM W CONTR AST * ??CT VENOGRAM ABDOMEN AND PELVIS CLINICAL HISTORY: 60-year-old male with pulmonary embolism suspected. ??Extensive thrombi on prior examination. ??Recently stopped anticoagulation. ??Now has painful right leg. ?? TECHNIQUE: * ??CT ANGIOGRAM OF THE CHEST: 3 mm thic k axial contiguous sections were obtained through the chest via helical acquisitio n after the intravenous administration of contrast, The patient received 150 mL Omnipaque 350 intravenous contrast. Thin-section reconstructions as well as coronal and sagittal MIP reformatted images were generated to aid in evaluati on. * ??CT VENOGRAM OF THE ABDOMEN AND PELVI S: Helical CT venogram of the abdomen and pelvis was performed following the intra venous administration of contrast. The patient received 150 mL Omnipaque 350 in travenous contrast. Maximum intensity projection (MIP) were reformatted. Multi planar images were reviewed and 3-D images were generated on an independent workstation. COMPARISON: Comparison is made to CT of the abdomen and pelvis dated February 21, 2021. ??No prior cross-sectional vinny ging of the thorax is provided for comparison. FINDINGS: Sharepoint Developer Images: Noncontributory. CTA OF THE CHEST: Pulmonary arteries: The contrast bolus i s adequate for evaluation. ??The pulmonary arteries are normal in course and caliber. ??There are no intraluminal filling defects. Other cardiovascular structures: There i s mild four-chamber cardiac enlargement. There is physiologic pericardial fluid. ??The aorta is normal in course and caliber. ??There is a normal three-vesse l aortic arch configuration. ??Visualized aspects of the great vessels are normal in course and caliber. ??There are prominent azygos and hemiazygos veins, b mick appreciated on the concurrent CT venogram of the abdomen and pelvis. Pulmonary parenchyma: There is a region of somewhat nodular appearing consolidation within the superior segmen t of the right lower lobe, measuring up to 22 mm. ??Within the left upper lobe l aterally, there is a 14 mm groundglass nodular opacity. Airways: The central airways are patent. ??There is no endobronchial or endotracheal lesion. Pleura: There is no pleural effusion or pneumothorax. Lymph nodes: There are no pathologically enlarged lymph nodes. Other mediastinal structures: The medias tinal fat is preserved. ??There is a hiatal hernia. ??There is irregular soft tissue thickening circumferentially at the gastroesophageal junction and within the distal esophagus. ??The soft tissue thickening along the right lateral dista l esophagus, measuring 46 x 18 mm. ??The esophagus is fluid-filled within its mid and distal segments and mildly distended. Inferior Neck: Visualized structures wit hin the inferior neck are unremarkable. Skeletal structures: There is mild exagg eration of thoracic kyphosis. ??There are degenerative changes of the visualized s pine with endplate sclerosis and osteophyte formation. CTV OF THE ABDOMEN AND PELVIS: Vascular Findings: Abdominal aorta: The aorta is normal in course and caliber. ??The origin the mesenteric and renal arteries are within normal limits. ??Visualized aspects of the bilateral lower extremity arterial v asculature is widely patent through the level of the mid superficial femoral art eries and profundus femoris arteries bilaterally. IVC: There is occlusive thrombus within the infrarenal inferior vena cava which extends across the midline into a left l umbar collateral. ??There is focal stenosis of the infrarenal inferior vena cava, which is where the thrombus extends to. ??The suprarenal IVC is norm al in course and caliber without intraluminal filling defects. ?? Right: Common iliac vein: Occluded. External iliac vein: Occluded. Internal iliac vein: Occluded. Common femoral vein: Combination of both occlusive and partially occlusive thrombus. Superficial femoral vein: Partially occl usive thrombus extends to the origin of the superficial femoral vein. ??Visualiz ed aspects of the superficial femoral vein are patent. Profundus femoral vein: Patent. Greater saphenous vein: Partially occlus hermes thrombus extends into the proximal aspect of the vein. Left: Common iliac vein: Occluded. External iliac vein: Occluded. ??The thr ombus now extends to the level of the pelvic inlet. Internal iliac vein: Occluded. Common femoral vein: Patent. Superficial femoral vein: Visualized asp ects are patent. Profundus femoral vein: Visualized aspec ts are patent. Greater saphenous vein: Visualized aspec ts are patent. Renal veins: Patent bilaterally. Superior mesenteric vein: Patent. Splenic vein: Patent. Portal veins: Patent. Hepatic veins: Patent. Partially visualized within the thorax o r prominent azygos and hemiazygos veins, likely related to venous collaterals. ?? There are prominent venous collaterals along the bilateral paraspinous musculat ure as well as within the ventral thecal sac. Non-Vascular Findings: Liver: Normal. Bile ducts: Normal. Gallbladder: Normal. Pancreas: Normal. Spleen: Normal. Adrenals: Normal. Kidneys: There are bilateral parapelvic cysts, left greater than right. ??There is no hydronephrosis or hydroureter. ??T he kidneys enhance symmetrically. ??There is nonspecific perinephric fat stranding bilaterally. Urinary Bladder: The urinary bladder is under distended, limiting evaluation. Lymph Nodes: There are no pathologically enlarged lymph nodes. ??There are several prominent pelvic lymph nodes and retroperitoneal lymph nodes, which are likely reactive. Bowel: The stomach is under distended. ? ?The duodenum is normal in course and caliber. ??The remainder of the small jelani wel is within normal limits. ??The ileocecal valve is within normal limits. ??A normal air-filled and collapsed appendix is present in the right lower q uadrant. ??There is a mild volume of stool throughout the course of the large bowel. ??The sigmoid colon is mildly redundant. Peritoneum and mesentery: No ascites, fr ee air, or loculated fluid collection. Retroperitoneum: There are edematous and inflammatory changes throughout the retroperitoneum and bilateral pelvic charmaine ewalls, left greater than right, with fat stranding. ??These predominantly ton rounding the vascular structures but also extend more diffusely. Abdominal wall: Normal. Reproductive organs: The prostate gland is within normal limits for size. ??The seminal vesicles are within normal limit s. ??There are bilateral varicoceles. Osseous structures: There is a small rig ht anterior sacral iliac osteophytes. There are subchondral cysts within the i nferior aspects of the bilateral sacroiliac joints, right greater than le ft. ??There are mild arthritic changes of bilateral hip joints. ??There are degene rative changes of visualized spine with endplate sclerosis, anterior osteophyte formation, multilevel Schmorl's node formation; these findings are most prono unced in the thoracic spine. ??There is disc desiccation with loss of interverte bral disc height and vacuum disc phenomenon. ?? Camacho Sevilla MD IMG CT ORDERABLES (ABNORMAL) CT Angiogram Chest for Pulmonary Embolus w Contrast (03/12/2021 8:12 AM EST) Anatomical Region Laterality Modality Chest Computed Tomography Specimen (Source) Anatomical Collection Method Collection Time Re ceived Time Location / / Volume Laterality 03/12/2021 8:32 AM EST Impressions 03/12/2021 8:38 AM EST 1. ??No CT angiographic evidence of pulm onary thromboembolism. 2. 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 ??The thrombus within the right in ternal, external iliac and common femoral veins is new. ?? 3. ??Thrombus extends into a prominent l eft lumbar vein, presumably collateral venous drainage secondary to stenosis of the infrarenal IVC. ?? 4. ??Where visualized, patent bilateral superficial femoral and profundus femoral veins. 5. ??Prominent collateral venous drainag e including paraspinal veins, venous plexus of the lumbar ventral thecal sac, and engorgement of the azygos / hemiazygos veins. 6. ??Edematous changes throughout the re troperitoneum extending into the pelvis, likely related to venous congestion due to thrombus. 7. ??Unexpected Finding: Irregular soft tissue thickening and nodularity at the gastroesophageal junction extending of t he distal esophagus, concerning for underlying neoplasm. ??Gastroenterology consultation is recommended. 8. ??Dependent atelectasis bilaterally. ??Focal 22 mm region of nodular consolidation within the dependent atele ctasis, favored to represent more focal atelectasis but does remain indeterminat e. ??Follow-up CT of the chest, possibly in 6-12 weeks, is recommended to ensure stability or resolution. ??Prone imaging may be of benefit. 9. ??14 mm left upper lobe groundglass n odule. ??This can be further evaluated the time of follow-up CT of the chest. Thank you for letting us participate in the care of this patient. ??If you are a health care provider and have any questi ons regarding this report, please contact the number below. ??For patients who have questions please contact the health director long term care that requested your imaging first. ? Narrative 03/12/2021 8:38 AM EST EXAMINATION: * ??CTA CHEST PULMONARY EMBOLISM W CONTR AST * ??CT VENOGRAM ABDOMEN AND PELVIS CLINICAL HISTORY: 60-year-old male with pulmonary embolism suspected. ??Extensive thrombi on prior examination. ??Recently stopped anticoagulation. ??Now has painful right leg. ?? TECHNIQUE: * ??CT ANGIOGRAM OF THE CHEST: 3 mm thic k axial contiguous sections were obtained through the chest via helical acquisitio n after the intravenous administration of contrast, The patient received 150 mL Omnipaque 350 intravenous contrast. Thin-section reconstructions as well as coronal and sagittal MIP reformatted images were generated to aid in evaluati on. * ??CT VENOGRAM OF THE ABDOMEN AND PELVI S: Helical CT venogram of the abdomen and pelvis was performed following the intra venous administration of contrast. The patient received 150 mL Omnipaque 350 in travenous contrast. Maximum intensity projection (MIP) were reformatted. Multi planar images were reviewed and 3-D images were generated on an independent workstation. COMPARISON: Comparison is made to CT of the abdomen and pelvis dated February 21, 2021. ??No prior cross-sectional vinny ging of the thorax is provided for comparison. FINDINGS: Sharepoint Developer Images: Noncontributory. CTA OF THE CHEST: Pulmonary arteries: The contrast bolus i s adequate for evaluation. ??The pulmonary arteries are normal in course and caliber. ??There are no intraluminal filling defects. Other cardiovascular structures: There i s mild four-chamber cardiac enlargement. There is physiologic pericardial fluid. ??The aorta is normal in course and caliber. ??There is a normal three-vesse l aortic arch configuration. ??Visualized aspects of the great vessels are normal in course and caliber. ??There are prominent azygos and hemiazygos veins, b mick appreciated on the concurrent CT venogram of the abdomen and pelvis. Pulmonary parenchyma: There is a region of somewhat nodular appearing consolidation within the superior segmen t of the right lower lobe, measuring up to 22 mm. ??Within the left upper lobe l aterally, there is a 14 mm groundglass nodular opacity. Airways: The central airways are patent. ??There is no endobronchial or endotracheal lesion. Pleura: There is no pleural effusion or pneumothorax. Lymph nodes: There are no pathologically enlarged lymph nodes. Other mediastinal structures: The medias tinal fat is preserved. ??There is a hiatal hernia. ??There is irregular soft tissue thickening circumferentially at the gastroesophageal junction and within the distal esophagus. ??The soft tissue thickening along the right lateral dista l esophagus, measuring 46 x 18 mm. ??The esophagus is fluid-filled within its mid and distal segments and mildly distended. Inferior Neck: Visualized structures wit hin the inferior neck are unremarkable. Skeletal structures: There is mild exagg eration of thoracic kyphosis. ??There are degenerative changes of the visualized s pine with endplate sclerosis and osteophyte formation. CTV OF THE ABDOMEN AND PELVIS: Vascular Findings: Abdominal aorta: The aorta is normal in course and caliber. ??The origin the mesenteric and renal arteries are within normal limits. ??Visualized aspects of the bilateral lower extremity arterial v asculature is widely patent through the level of the mid superficial femoral art eries and profundus femoris arteries bilaterally. IVC: There is occlusive thrombus within the infrarenal inferior vena cava which extends across the midline into a left l umbar collateral. ??There is focal stenosis of the infrarenal inferior vena cava, which is where the thrombus extends to. ??The suprarenal IVC is norm al in course and caliber without intraluminal filling defects. ?? Right: Common iliac vein: Occluded. External iliac vein: Occluded. Internal iliac vein: Occluded. Common femoral vein: Combination of both occlusive and partially occlusive thrombus. Superficial femoral vein: Partially occl usive thrombus extends to the origin of the superficial femoral vein. ??Visualiz ed aspects of the superficial femoral vein are patent. Profundus femoral vein: Patent. Greater saphenous vein: Partially occlus hermes thrombus extends into the proximal aspect of the vein. Left: Common iliac vein: Occluded. External iliac vein: Occluded. ??The thr ombus now extends to the level of the pelvic inlet. Internal iliac vein: Occluded. Common femoral vein: Patent. Superficial femoral vein: Visualized asp ects are patent. Profundus femoral vein: Visualized aspec ts are patent. Greater saphenous vein: Visualized aspec ts are patent. Renal veins: Patent bilaterally. Superior mesenteric vein: Patent. Splenic vein: Patent. Portal veins: Patent. Hepatic veins: Patent. Partially visualized within the thorax o r prominent azygos and hemiazygos veins, likely related to venous collaterals. ?? There are prominent venous collaterals along the bilateral paraspinous musculat ure as well as within the ventral thecal sac. Non-Vascular Findings: Liver: Normal. Bile ducts: Normal. Gallbladder: Normal. Pancreas: Normal. Spleen: Normal. Adrenals: Normal. Kidneys: There are bilateral parapelvic cysts, left greater than right. ??There is no hydronephrosis or hydroureter. ??T he kidneys enhance symmetrically. ??There is nonspecific perinephric fat stranding bilaterally. Urinary Bladder: The urinary bladder is under distended, limiting evaluation. Lymph Nodes: There are no pathologically enlarged lymph nodes. ??There are several prominent pelvic lymph nodes and retroperitoneal lymph nodes, which are likely reactive. Bowel: The stomach is under distended. ? ?The duodenum is normal in course and caliber. ??The remainder of the small jelani wel is within normal limits. ??The ileocecal valve is within normal limits. ??A normal air-filled and collapsed appendix is present in the right lower q uadrant. ??There is a mild volume of stool throughout the course of the large bowel. ??The sigmoid colon is mildly redundant. Peritoneum and mesentery: No ascites, fr ee air, or loculated fluid collection. Retroperitoneum: There are edematous and inflammatory changes throughout the retroperitoneum and bilateral pelvic charmaine ewalls, left greater than right, with fat stranding. ??These predominantly ton rounding the vascular structures but also extend more diffusely. Abdominal wall: Normal. Reproductive organs: The prostate gland is within normal limits for size. ??The seminal vesicles are within normal limit s. ??There are bilateral varicoceles. Osseous structures: There is a small rig ht anterior sacral iliac osteophytes. There are subchondral cysts within the i nferior aspects of the bilateral sacroiliac joints, right greater than le ft. ??There are mild arthritic changes of bilateral hip joints. ??There are degene rative changes of visualized spine with endplate sclerosis, anterior osteophyte formation, multilevel Schmorl's node formation; these findings are most prono unced in the thoracic spine. ??There is disc desiccation with loss of interverte bral disc height and vacuum disc phenomenon. ?? Resulting Agency Comment Unexpected Finding Camacho Sevilla MD G CT ORDERABLES Request For 2nd Read CT Abdomen & Pelvis (03/12/2021 6:27 AM EST) Anatomical Region Laterality Modality Abdomen, Pelvis SO Specimen (Source) Anatomical Location Collection Method / Collectio n Time Received Time / Laterality Volume Addenda Addendum by Steven Painting DO on 03/12 8:42 AM EST --------ADDENDUM #1-------- EXAMINATION: * ??REQUEST FOR 2ND READ CT ABDOMEN AND PELVIS * ??CT OF THE ABDOMEN AND PELVIS WITH IN TRAVENOUS CONTRAST. CLINICAL HISTORY: 60-year-old male with initially presenting with low back pain right lower extremity is cold and mottle d. ??Request for second interpretation of outside imaging study. * ??Sending Institution [facility] [place] ??Date of exam [id number] * ??I believe a reinterpretation of this exam may alter care of Patient. Yes TECHNIQUE: CT of the abdomen and pelvis with intravenous contrast was performed at [facility] on Jan. ??Helical CT images of the abdomen and pelvis were obtained wit h intravenous contrast. ??Per report, the patient received 100 mL Omnipaque 350 in travenous contrast. ??Multiplanar reformats were performed in the sagittal and coronal planes. ??Oral contrast was not administered. COMPARISON: There is no similar prior ex amination provided for comparison. FINDINGS: Sharepoint Developer Images: Noncontributory. Lower chest: Visualized structures withi n the inferior thorax are within normal limits. Liver: Liver is mildly diffusely hypoatt enuating, consistent with hepatic steatosis. Bile ducts: Normal. Gallbladder: Normal. Pancreas: Normal. Spleen: Normal. Adrenals: Normal. Kidneys: There are bilateral parapelvic cysts, left greater than right. ?? There is no hydroureter. ??The kidneys enhance symmetrically. ??There is nonspecific perinephric fat stranding bilaterally. Urinary Bladder: The urinary bladder is under distended, limiting evaluation. Vasculature: The aorta is normal in course and calibe r. ??The origin the mesenteric and renal arteries are within normal limits. ??Vis ualized aspects of the bilateral lower extremity arterial vasculature is widely patent through the level of the mid superficial femoral arteries and profund us femoris arteries bilaterally. Timing of contrast administration and sc anning limits evaluation of the visualized venous structures within the bilateral lower extremities. ??The bilateral common femoral veins and proxi mal greater saphenous veins appear patent. On the left, there is enlargement of the left external iliac vein with occlusive thrombus within its superior segment. ?? Thrombus extends into the internal iliac vein and is diffusely present throughout the common iliac. On the right, the external iliac vein is patent. ??The internal iliac vein is patent. ??There is occlusive thrombus th roughout the entirety of the right common iliac vein extending to the bifurcation. There is occlusive thrombus within the i nfrarenal inferior vena cava which extends across the midline into a lumbar collateral. ??There is focal stenosis of the infrarenal inferior vena cava are, w hich where the thrombus extends to. ??The suprarenal IVC is normal in course and c aliber without intraluminal filling defects. ??The bilateral renal veins are widely patent. Partially visualized within the thorax o r prominent azygos and hemiazygos veins, likely related to venous collaterals. ?? There are prominent venous collaterals along the bilateral paraspinous musculat ure as well as within the ventral thecal sac. The superior mesenteric, splenic, and po rtal veins are patent. ??The hepatic veins are patent. Lymph Nodes: There are no pathologically enlarged lymph nodes. ??There are several prominent pelvic lymph nodes and retroperitoneal lymph nodes, which are likely reactive. Bowel: There is a small hiatal hernia wi th approximately one sixth of the stomach within the thoracic cavity. ??Th e stomach is under distended. ??The duodenum is normal in course and caliber . ??The remainder of the small bowel is within normal limits. ??The ileocecal va lve is within normal limits. ??A normal air-filled and collapsed appendix is pre sent in the right lower quadrant. ?? There is a mild volume of stool throughout the course of the large bowel. ??The sigmoid colon is mildly redundant. Peritoneum and mesentery: No ascites, fr ee air, or loculated fluid collection. Retroperitoneum: There are edematous and inflammatory changes throughout the retroperitoneum and bilateral pelvic charmaine ewalls, left greater than right, with fat stranding. ??These predominantly ton rounding the vascular structures but also extend more diffusely. Abdominal wall: Normal. Reproductive organs: The prostate gland is within normal limits for size. ?? The seminal vesicles are within normal limit s. ??There are bilateral varicoceles. Osseous structures: There is a small rig ht anterior sacral iliac osteophytes. There are subchondral cysts within the i nferior aspects of the bilateral sacroiliac joints, right greater than le ft. ??There are mild arthritic changes of bilateral hip joints. ??There are degene rative changes of visualized spine with endplate sclerosis, anterior osteophyte formation, multilevel Schmorl's node formation; these findings are most prono unced in the thoracic spine. ?? There is disc desiccation with loss of interverte bral disc height and vacuum disc phenomenon. ?? IMPRESSION: 1. 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 Thrombus extends into a prominent left l umbar vein, presumably collateral venous drainage secondary to stenosis of the in frarenal IVC. ??Occlusive thrombus extends into both the left internal and external iliac veins as well. ?? Widely patent bilateral common femoral veins. 2. ??Timing of contrast administration l imits evaluation of venous structures within the visualized lower extremities. 3. ??Prominent collateral venous drainag e including paraspinal veins, venous plexus of the lumbar ventral thecal sac, and engorgement of the azygos / hemiazygos veins. 4. ??Widely patent arterial structures. 5. ??Edematous changes throughout the re troperitoneum extending into the pelvis, likely related to venous congestion due to thrombus. 6. ??Mild hepatic steatosis. Thank you for letting us participate in the care of this patient. ??If you are a health care provider and have any questi ons regarding this report, please contact the number below. ??For patients who have questions please contact the health director long term care that requested your imaging first. ? --------ORIGINAL REPORT -------- EXAMINATION: * ??REQUEST FOR 2ND READ CT ABDOMEN AND PELVIS * ??CT OF THE ABDOMEN AND PELVIS WITH IN TRAVENOUS CONTRAST. CLINICAL HISTORY: 60-year-old male with initially presenting with low back pain right lower extremity is cold and mottle d. ??Request for second interpretation of outside imaging study. * ??[place]ending Institution [facility] [place] ??Date of exam 20210221 * ??I believe a reinterpretation of this exam may alter care of Patient. Yes TECHNIQUE: CT of the abdomen and pelvis with intravenous contrast was performed at [facility] on Jan. ??Helical CT images of the abdomen and pelvis were obtained wit h intravenous contrast. ??Per report, the patient received 100 mL Omnipaque 350 in travenous contrast. ??Multiplanar reformats were performed in the sagittal and coronal planes. ??Oral contrast was not administered. COMPARISON: There is no similar prior ex amination provided for comparison. FINDINGS: Sharepoint Developer Images: Noncontributory. Lower chest: Visualized structures withi n the inferior thorax are within normal limits. Liver: Liver is mildly diffusely hypoatt enuating, consistent with hepatic steatosis. Bile ducts: Normal. Gallbladder: Normal. Pancreas: Normal. Spleen: Normal. Adrenals: Normal. Kidneys: There are bilateral parapelvic cysts, left greater than right. ?? There is no hydroureter. ??The kidneys enhance symmetrically. ??There is nonspecific perinephric fat stranding bilaterally. Urinary Bladder: The urinary bladder is under distended, limiting evaluation. Vasculature: The aorta is normal in course and calibe r. ??The origin the mesenteric and renal arteries are within normal limits. ??Vis ualized aspects of the bilateral lower extremity arterial vasculature is widely patent through the level of the mid superficial femoral arteries and profund us femoris arteries bilaterally. Timing of contrast administration and sc anning limits evaluation of the visualized venous structures within the bilateral lower extremities. ??The bilateral common femoral veins and proxi mal greater saphenous veins appear patent. On the left, there is enlargement of the left external iliac vein with occlusive thrombus within its caudal segment. ??Th rombus extends into the internal iliac vein and is diffusely present throughout the common iliac. On the right, the external iliac vein is patent. ??The internal iliac vein is patent. ??There is occlusive thrombus th roughout the entirety of the right common iliac vein extending to the bifurcation. There is occlusive thrombus within the i nfrarenal inferior vena cava which extends across the midline into a lumbar collateral. ??There is focal stenosis of the infrarenal inferior vena cava are, w hich where the thrombus extends to. ??The suprarenal IVC is normal in course and c aliber without intraluminal filling defects. ??The bilateral renal veins are widely patent. Partially visualized within the thorax o r prominent azygos and hemiazygos veins, likely related to venous collaterals. ?? There are prominent venous collaterals along the bilateral paraspinous musculat ure as well as within the ventral thecal sac. The superior mesenteric, splenic, and po rtal veins are patent. ??The hepatic veins are patent. Lymph Nodes: There are no pathologically enlarged lymph nodes. ??There are several prominent pelvic lymph nodes and retroperitoneal lymph nodes, which are likely reactive. Bowel: There is a small hiatal hernia wi th approximately one sixth of the stomach within the thoracic cavity. ??Th e stomach is under distended. ??The duodenum is normal in course and caliber . ??The remainder of the small bowel is within normal limits. ??The ileocecal va lve is within normal limits. ??A normal air-filled and collapsed appendix is pre sent in the right lower quadrant. ?? There is a mild volume of stool throughout the course of the large bowel. ??The sigmoid colon is mildly redundant. Peritoneum and mesentery: No ascites, fr ee air, or loculated fluid collection. Retroperitoneum: There are edematous and inflammatory changes throughout the retroperitoneum and bilateral pelvic charmaine ewalls, left greater than right, with fat stranding. ??These predominantly ton rounding the vascular structures but also extend more diffusely. Abdominal wall: Normal. Reproductive organs: The prostate gland is within normal limits for size. ?? The seminal vesicles are within normal limit s. ??There are bilateral varicoceles. Osseous structures: There is a small rig ht anterior sacral iliac osteophytes. There are subchondral cysts within the i nferior aspects of the bilateral sacroiliac joints, right greater than le ft. ??There are mild arthritic changes of bilateral hip joints. ??There are degene rative changes of visualized spine with endplate sclerosis, anterior osteophyte formation, multilevel Schmorl's node formation; these findings are most prono unced in the thoracic spine. ?? There is disc desiccation with loss of interverte bral disc height and vacuum disc phenomenon. ?? IMPRESSION: 1. 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 Thrombus extends into a prominent left l umbar vein, presumably collateral venous drainage secondary to stenosis of the in frarenal IVC. ??Occlusive thrombus extends into both the right internal and external iliac veins as well. ?? Widely patent bilateral common femoral veins. 2. ??Timing of contrast administration l imits evaluation of venous structures within the visualized lower extremities. 3. ??Prominent collateral venous drainag e including paraspinal veins, venous plexus of the lumbar ventral thecal sac, and engorgement of the azygos / hemiazygos veins. 4. ??Widely patent arterial structures. 5. ??Edematous changes throughout the re troperitoneum extending into the pelvis, likely related to venous congestion due to thrombus. 6. ??Mild hepatic steatosis. Thank you for letting us participate in the care of this patient. ??If you are a health care provider and have any questi ons regarding this report, please contact the number below. ??For patients who have questions please contact the health director long term care that requested your imaging first. ? Electronically signed by: Steven Painting DO, [facility] ([phone]), at 03/12/2021 8:12 AM Impressions 03/12/2021 8:12 AM EST 1. 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 Thrombus extends into a prominent left l umbar vein, presumably collateral venous drainage secondary to stenosis of the in frarenal IVC. ??Occlusive thrombus extends into both the right internal and external iliac veins as well. ??Widely patent bilateral common femoral veins. 2. ??Timing of contrast administration l imits evaluation of venous structures within the visualized lower extremities. 3. ??Prominent collateral venous drainag e including paraspinal veins, venous plexus of the lumbar ventral thecal sac, and engorgement of the azygos / hemiazygos veins. 4. ??Widely patent arterial structures. 5. ??Edematous changes throughout the re troperitoneum extending into the pelvis, likely related to venous congestion due to thrombus. 6. ??Mild hepatic steatosis. Thank you for letting us participate in the care of this patient. ??If you are a health care provider and have any questi ons regarding this report, please contact the number below. ??For patients who have questions please contact the health director long term care that requested your imaging first. ? Narrative 03/12/2021 8:12 AM EST EXAMINATION: * ??REQUEST FOR 2ND READ CT ABDOMEN AND PELVIS * ??CT OF THE ABDOMEN AND PELVIS WITH IN TRAVENOUS CONTRAST. CLINICAL HISTORY: 60-year-old male with initially presenting with low back pain right lower extremity is cold and mottle d. ??Request for second interpretation of outside imaging study. * ??Sending Institution [facility] [place] * ??Date of exam 20210221 * ??I believe a reinterpretation of this exam may alter care of Patient. Yes TECHNIQUE: CT of the abdomen and pelvis with intravenous contrast was performed at [facility] on Jan. ??Helical CT images of the abdomen and pelvis were obtained wit h intravenous contrast. ??Per report, the patient received 100 mL Omnipaque 350 in travenous contrast. ??Multiplanar reformats were performed in the sagittal and coronal planes. ??Oral contrast was not administered. COMPARISON: There is no similar prior ex amination provided for comparison. FINDINGS: Sharepoint Developer Images: Noncontributory. Lower chest: Visualized structures withi n the inferior thorax are within normal limits. Liver: Liver is mildly diffusely hypoatt enuating, consistent with hepatic steatosis. Bile ducts: Normal. Gallbladder: Normal. Pancreas: Normal. Spleen: Normal. Adrenals: Normal. Kidneys: There are bilateral parapelvic cysts, left greater than right. ??There is no hydroureter. ??The kidneys enhance symmetrically. ??There is nonspecific perinephric fat stranding bilaterally. Urinary Bladder: The urinary bladder is under distended, limiting evaluation. Vasculature: The aorta is normal in course and calibe r. ??The origin the mesenteric and renal arteries are within normal limits. ??Vis ualized aspects of the bilateral lower extremity arterial vasculature is widely patent through the level of the mid superficial femoral arteries and profund us femoris arteries bilaterally. Timing of contrast administration and sc anning limits evaluation of the visualized venous structures within the bilateral lower extremities. ??The bilateral common femoral veins and proxi mal greater saphenous veins appear patent. On the left, there is enlargement of the left external iliac vein with occlusive thrombus within its caudal segment. ??Th rombus extends into the internal iliac vein and is diffusely present throughout the common iliac. On the right, the external iliac vein is patent. ??The internal iliac vein is patent. ??There is occlusive thrombus th roughout the entirety of the right common iliac vein extending to the bifurcation. There is occlusive thrombus within the i nfrarenal inferior vena cava which extends across the midline into a lumbar collateral. ??There is focal stenosis of the infrarenal inferior vena cava are, w hich where the thrombus extends to. ??The suprarenal IVC is normal in course and c aliber without intraluminal filling defects. ??The bilateral renal veins are widely patent. Partially visualized within the thorax o r prominent azygos and hemiazygos veins, likely related to venous collaterals. ?? There are prominent venous collaterals along the bilateral paraspinous musculat ure as well as within the ventral thecal sac. The superior mesenteric, splenic, and po rtal veins are patent. ??The hepatic veins are patent. Lymph Nodes: There are no pathologically enlarged lymph nodes. ??There are several prominent pelvic lymph nodes and retroperitoneal lymph nodes, which are likely reactive. Bowel: There is a small hiatal hernia wi th approximately one sixth of the stomach within the thoracic cavity. ??Th e stomach is under distended. ??The duodenum is normal in course and caliber . ??The remainder of the small bowel is within normal limits. ??The ileocecal va lve is within normal limits. ??A normal air-filled and collapsed appendix is pre sent in the right lower quadrant. ??There is a mild volume of stool throughout the course of the large bowel. ??The sigmoid colon is mildly redundant. Peritoneum and mesentery: No ascites, fr ee air, or loculated fluid collection. Retroperitoneum: There are edematous and inflammatory changes throughout the retroperitoneum and bilateral pelvic charmaine ewalls, left greater than right, with fat stranding. ??These predominantly ton rounding the vascular structures but also extend more diffusely. Abdominal wall: Normal. Reproductive organs: The prostate gland is within normal limits for size. ??The seminal vesicles are within normal limit s. ??There are bilateral varicoceles. Osseous structures: There is a small rig ht anterior sacral iliac osteophytes. There are subchondral cysts within the i nferior aspects of the bilateral sacroiliac joints, right greater than le ft. ??There are mild arthritic changes of bilateral hip joints. ??There are degene rative changes of visualized spine with endplate sclerosis, anterior osteophyte formation, multilevel Schmorl's node formation; these findings are most prono unced in the thoracic spine. ??There is disc desiccation with loss of interverte bral disc height and vacuum disc phenomenon. ?? Procedure Note Steven Painting, - 03/12/2021Formatti ng of this note might be different from the original. EXAMINATION: * REQUEST FOR 2ND READ CT ABDOMEN AND PE LVIS * CT OF THE ABDOMEN AND PELVIS WITH INTR AVENOUS CONTRAST. CLINICAL HISTORY: 60-year-old male with initially presenting with low back pain right lower extremity is cold and mottle d. Request for second interpretation of outside imaging study. * Sending Institution [facility] [place] * Date of exam 20210221 * I believe a reinterpretation of this e xam may alter care of Patient. Yes TECHNIQUE: CT of the abdomen and pelvis with intravenous contrast was performed at [facility] on Jan. Helical CT images of the abdomen and pelvis were obtained wit h intravenous contrast. Per report, the patient received 100 mL Omnipaque 350 in travenous contrast. Multiplanar reformats were performed in the sagittal and coronal planes. Oral contrast was not administered. COMPARISON: There is no similar prior ex amination provided for comparison. FINDINGS: Sharepoint Developer Images: Noncontributory. Lower chest: Visualized structures withi n the inferior thorax are within normal limits. Liver: Liver is mildly diffusely hypoatt enuating, consistent with hepatic steatosis. Bile ducts: Normal. Gallbladder: Normal. Pancreas: Normal. Spleen: Normal. Adrenals: Normal. Kidneys: There are bilateral parapelvic cysts, left greater than right. There is no hydroureter. The kidneys enhance s ymmetrically. There is nonspecific perinephric fat stranding bilaterally. Urinary Bladder: The urinary bladder is under distended, limiting evaluation. Vasculature: The aorta is normal in course and calibe r. The origin the mesenteric and renal arteries are within normal limits. Visua lized aspects of the bilateral lower extremity arterial vasculature is widely patent through the level of the mid superficial femoral arteries and profund us femoris arteries bilaterally. Timing of contrast administration and sc anning limits evaluation of the visualized venous structures within the bilateral lower extremities. The bilateral common femoral veins and proxi mal greater saphenous veins appear patent. On the left, there is enlargement of the left external iliac vein with occlusive thrombus within its caudal segment. Thro mbus extends into the internal iliac vein and is diffusely present throughout the common iliac. On the right, the external iliac vein is patent. The internal iliac vein is patent. There is occlusive thrombus thro ughout the entirety of the right common iliac vein extending to the bifurcation. There is occlusive thrombus within the i nfrarenal inferior vena cava which extends across the midline into a lumbar collateral. There is focal stenosis of the infrarenal inferior vena cava are, w hich where the thrombus extends to. The suprarenal IVC is normal in course and c aliber without intraluminal filling defects. The bilateral renal veins are w idely patent. Partially visualized within the thorax o r prominent azygos and hemiazygos veins, likely related to venous collaterals. Th ere are prominent venous collaterals along the bilateral paraspinous musculat ure as well as within the ventral thecal sac. The superior mesenteric, splenic, and po rtal veins are patent. The hepatic veins are patent. Lymph Nodes: There are no pathologically enlarged lymph nodes. There are several prominent pelvic lymph nodes and retroperitoneal lymph nodes, which are likely reactive. Bowel: There is a small hiatal hernia wi th approximately one sixth of the stomach within the thoracic cavity. The stomach is under distended. The duodenum is normal in course and caliber . The remainder of the small bowel is within normal limits. The ileocecal valv e is within normal limits. A normal air-filled and collapsed appendix is pre sent in the right lower quadrant. There is a mild volume of stool throughout the course of the large bowel. The sigmoid colon is mildly redundant. Peritoneum and mesentery: No ascites, fr ee air, or loculated fluid collection. Retroperitoneum: There are edematous and inflammatory changes throughout the retroperitoneum and bilateral pelvic charmaine ewalls, left greater than right, with fat stranding. These predominantly surro unding the vascular structures but also extend more diffusely. Abdominal wall: Normal. Reproductive organs: The prostate gland is within normal limits for size. The seminal vesicles are within normal limit s. There are bilateral varicoceles. Osseous structures: There is a small rig ht anterior sacral iliac osteophytes. There are subchondral cysts within the i nferior aspects of the bilateral sacroiliac joints, right greater than le ft. There are mild arthritic changes of bilateral hip joints. There are degenera tive changes of visualized spine with endplate sclerosis, anterior osteophyte formation, multilevel Schmorl's node formation; these findings are most prono unced in the thoracic spine. There is disc desiccation with loss of interverte bral disc height and vacuum disc phenomenon. IMPRESSION 1. Focal stenosis of the infrarenal infe rior vena cava with occlusive thrombus throughout the infrarenal inferior vena cava and bilateral common iliac veins. Thrombus extends into a prominent left l umbar vein, presumably collateral venous drainage secondary to stenosis of the in frarenal IVC. Occlusive thrombus extends into both the right internal and external iliac veins as well. Widely patent bilateral common femoral veins. 2. Timing of contrast administration meyer its evaluation of venous structures within the visualized lower extremities. 3. Prominent collateral venous drainage including paraspinal veins, venous plexus of the lumbar ventral thecal sac, and engorgement of the azygos / hemiazygos veins. 4. Widely patent arterial structures. 5. Edematous changes throughout the retr operitoneum extending into the pelvis, likely related to venous congestion due to thrombus. 6. Mild hepatic steatosis. Thank you for letting us participate in the care of this patient. If you are a health care provider and have any questi ons regarding this report, please contact the number below. For patients w ho have questions please contact the health director long term care that requested your imaging first. Electronically signed by: Steven Painting DO, [facility] ([phone]), at 03/12/2021 8:12 AM Camacho Sevilla MD IMG OUTSIDE INTERPRETATION O RDERABLES EKG 12 Lead (03/12/2021 5:17 AM EST) Component Value Ref Range Test Analysis Performed Pathologis t Method Time At Signature Ventricular rate 84 BPM MUSE SYSTEM Atrial Rate 84 BPM MUSE SYSTEM P-R Interval 148 ms MUSE SYSTEM QRS Duration 98 ms MUSE SYSTEM Q-T Interval 400 ms MUSE SYSTEM QTC Calculated 472 ms MUSE SYSTEM (Bezet) Calculated P [place] 28 degrees MUSE SYSTEM Calculated R [place] -6 degrees MUSE SYSTEM Calculated T [place] 55 degrees MUSE SYSTEM INTERPRETATION Normal sinus rhythm MUSE SYSTEM Nonspecific T wave abnormality Abnormal ECG When compared with ECG of 26-FEB-2021 17:47, No significant change was found I personally reviewed the tracing and edited the fellows int erpretation Confirmed by fellow Pato Corcoran ([id number]) on 03/12/2021 10 :37:34 PM Confirmed by MD HUMMEL ARMIN ([id number]) on 03/14/2021 4:28:22 PM Specimen Anatomical Collection Method Collection Time Receive d Time (Source) Location / / Volume Laterality 03/12/2021 5:17 AM 4:28 EST PM EST Camacho Sevilla MD ECG ORDERABLES Performing Organization Address City/State/ZIP Code Phon e Number MUSE SYSTEM (ABNORMAL) BLOOD GAS 2 VENOUS (03/12/2021 5:13 AM EST) Analysis Performed At Patho logist Time Signature pH Luis 7.40 7.32 - [facility] 7.42 [facility] pCO2 Luis 34 (L) 41 - 51 [facility] pO2 Luis 34 25 - 40 [facility] HCO3 Luis 20.5 mmol/L [facility] BE Luis -4.3 mmol/L [facility] Hgb Blood Gas 11.4 (L) 13.7 - [facility] 16.5 g/dL [facility] O2HB Luis 65.1 % [facility] COHB Luis 0.8 % [facility] Comment: Nonsmokers: 0.5-1.5% COHB Smokers: Variable, but usually less than 10% Toxic: 20-30% COHB Lethal: Greater than 60% COHB METHB Luis 0.7 <=1.5 % [facility] Na Whole Blood 135 135 - 145 mmol/L [facility] K Whole Blood 3.4 (L) 3.5 - 5.0 mmol/L [facility] Comment: Please note: Patients with WBC >100,000 may have falsely elevated Potassium levels. Contact the Clinical Chemistry L aboratory if there are any questions. ICa Whole Blood 1.11 (L) 1.15 - 1.33 mmol/L [facility] Comment: Note: ??Total bilirubin higher than 20 m g/dL may lead to falsely low ionized calcium. CL Whole Blood 102 98 - 107 mmol/L [facility] Gluc Whole Bld 135 65 - 199 mg/dL [facility] Comment: Diabetes: >=200 mg/dL plus symp toms Lactate WB 1.4 0.5 - 2.2 mmol/L [facility] BGas Source Venous [facility] Specimen Anatomical Collection Method Collection Time Receive d Time (Source) Location / / Volume Laterality Blood 03/12/2021 5:13 AM 2 5:13 EST AM EST Camacho Sevilla MD CHEMISTRY ORDERABLES Performing Organization Address City/[facility]/[place] [address] Bilirubin, Direct (03/12/2021 5:11 AM EST) P athologist Signature Bili, Direct 0.1 0.0 - 0.3 [facility] mg/dL [facility] Specimen Anatomical Collection Method Collection Time Receive d Time (Source) Location / / Volume Laterality Blood 03/12/2021 5:11 AM 2 5:18 EST AM EST Resulting Agency Comment Spec In Lab Camacho Sevilla MD CHEMISTRY ORDERABLES Performing Organization Address City/[facility]/ZIP Code Phon e Number [address] (ABNORMAL) Differential, Automated (03/12/2021 5:11 AM EST) Patholo gist Method Time Signature Neutrophils % 88.1 % [facility] Neutr Abs (ANC) 11.19 (H) 1.70 - [facility] 6.10 [facility] x10(3)/[facility] LABORATORY Lymphocytes % 6.5 % [facility] Lymphocytes Abs 0.8 (L) 0.9 - 3.2 [facility] x10(3)/[facility] LABORATORY Monocytes % 4.6 % [facility] Monocyte Abs 0.6 0.3 - 0.9 [facility] x10(3)/[facility] LABORATORY Eosinophils % 0.0 % [facility] Eosinophils Abs 0.0 0.0 - 0.4 [facility] x10(3)/[facility] LABORATORY Basophils % 0.2 % [facility] Basophils Abs 0.0 0.0 - 0.1 [facility] x10(3)/[facility] LABORATORY Immature Gran % 0.60 % [facility] Comment: Immature granulocytes(IG's)percentage an d absolute count will include metamyelocytes, myelocytes, and promyelo cytes. Blood smears from CBCs yielding IG's will be scanned manually for concor dance. If this scan disagrees with the automated IG or if promyelocytes are not ed, a manual differential will be performed. Lata Gran Abs 0.08 (H) 0.00 - 0.04 x10(3)/[facility] LABORATORY Specimen Anatomical Collection Method Collection Time Receive d Time (Source) Location / / Volume Laterality Blood 03/12/2021 5:11 AM 5:18 EST AM EST Resulting Agency Comment Spec In Lab Camacho Sevilla MD HEMATOLOGY ORDERABLES Performing Organization Address City/State/[place]IP [place] [address] (ABNORMAL) Hemogram (03/12/2021 5:11 AM EST) Analysis Performed At Patho logist Time Signature WBC 12.7 (H) 4.0 - 9.5 [facility] x10(3)/[facility] LABORATORY RBC 3.74 (L) 4.58 - [facility] 5.54 [facility] x10(6)/[facility] LABORATORY Hemoglobin 10.7 (L) 13.7 - [facility] g/dL [facility] Hematocrit 33.2 (L) 40.5 - [facility] 48.5 % [facility] MCV 88.8 82.9 - [facility]1 [facility] MCH 28.6 27.5 - [facility] 32.1 pg [facility] MCHC 32.2 32.0 - [facility] 35.7 g/dL [facility] Platelets 523 (H) 145 - 357 [facility] x10(3)/[facility] LABORATORY RDWSD 40.6 36.0 - [facility].0 [facility] LAB[facility]ORY RDWCV 12.4 11.4 - [facility] 13.8 % [facility] MPV 8.9 7.6 - 12.9 [facility] LABORATORY nRBC % Auto 0.0 % [facility] nRBC Abs Auto 0.000 0.000 - [facility] x10(3)/[facility] LABORATORY Specimen Anatomical Collection Method Collection Time Receive d Time (Source) Location / / Volume Laterality Blood 03/12/2021 5:11 AM 5:18 EST AM EST Resulting Agency Comment Spec In Lab Camacho Sevilla MD HEMATOLOGY ORDERABLES Performing Organization Address City/State/ZIP [place] [address] (ABNORMAL) Comprehensive metabolic panel (non-fasting) (03/12/2021 5:11 AM EST) P athologist Signature Glucose Lvl 135 65 - 199 [facility] mg/dL [facility] Comment: Diabetes: >=200 mg/dL plus symp toms BUN 17 10 - 20 mg/dL [facility] Creatinine 0.70 (L) 0.80 - 1.50 mg/dL [facility] Sodium 138 135 - 145 mmol/L [facility] Potassium 3.4 (L) 3.5 - 5.0 mmol/L [facility] Comment: Please note: ??Patients with WBC >100,00 0 may have falsely elevated Potassium levels. ??For accurate Potassium quantif ication in these patients send serum separator tube (gold top) for subsequent determinations. ??Contact the Clinical Chemistry Laboratory if there are any qu estions. Chloride 105 98 - 107 mmol/L [facility] CO2 19 (L) 22 - 31 mmol/L [facility] Anion Gap 14 5 - 15 mmol/L [facility] Calcium 7.8 (L) 8.5 - 10.5 mg/dL [facility] Total Protein 6.4 6.1 - 8.0 g/dL [facility] Albumin 3.4 3.2 - 5.2 g/dL [facility] AST 14 0 - 39 unit/L [facility] ALT 13 0 - 55 unit/L [facility] Alk Phos 80 40 - 130 unit/L [facility] Total Bilirubin 0.4 0.2 - 1.3 mg/dL [facility] Estimated GFR 102 >=60 mL/min/1.73 m?? [facility] Comment: This patient? s estimated glomerular filtration rate (eGFR) is between 102 mL/min/1.73 m2 (patients with less muscl e mass per kg body weight) and 118 mL/min/1.73 m2 (patients with more muscl e [...] (Source) Location / / Volume Laterality Blood 03/12/2021 5:11 AM 2 5:18 EST AM EST Resulting Agency Comment Spec In Lab Camacho Sevilla MD CHEMISTRY ORDERABLES Performing Organization Address City/State/[place] [address] Type and Screen Validity (03/12/2021 5:10 AM EST) [employer] Method Time Signature T&S only valid [facility] FREDY DOWNING at [facility] Comment: This Type and Screen result is only valid at the [facility] Specimen Anatomical Collection Method Collection Time Receive d Time (Source) Location / / Volume Laterality Blood 03/12/2021 5:10 AM 2 5:17 EST AM EST Resulting Agency Comment Spec In Lab Camahco Sevilla MD BLOOD BANK ORDERABLES Performing Organization Address City/State/ZIP Code Phon e Number [address] ABORH Recheck Status (03/12/2021 5:10 AM EST) [employer] Method Time Signature ABORH Rec[facility]ck Order Placed [facility] LAB[facility] ABORH Type Complete [facility] LABORATORY Specimen Anatomical Collection Method Collection Time Receive d Time (Source) Location / / Volume Laterality Blood 03/12/2021 5:10 AM 2 5:17 EST AM EST Resulting Agency Comment Spec In Lab Camacho Sevilla MD BLOOD BANK ORDERABLES Performing Organization Address City/State/[place] [address] Antibody screen (03/12/2021 5:10 AM EST) [employer] Method Time Signature Ab Screen Negative [facility] LABORATORY Expires at 03/15/2021 FREDY DOWNING [id number] on: [facility] Specimen Anatomical Collection Method Collection Time Receive d Time (Source) Location / / Volume Laterality Blood 03/12/2021 5:10 AM 2 5:17 EST AM EST Resulting Agency Comment Spec In Lab Camacho Sevilla MD BLOOD BANK ORDERABLES Performing Organization Address City/State/[place] [address] ABO/Rh Typing (03/12/2021 5:10 AM EST) P athologist Signature ABORh Type O Pos [facility] Specimen Anatomical Collection Method Collection Time Receive d Time (Source) Location / / Volume Laterality Blood 03/12/2021 5:10 AM 5:17 EST AM EST Resulting Agency Comment Spec In Lab Camacho Sevilla MD BLOOD BANK ORDERABLES Performing Organization Address City/State/ZIP [place] [address] Film Library- Storage Only CT Abdomen & Pelvis (02/21/2021 12:00 AM EST) Specimen (Source) Anatomical Location Collection Method / Collectio n Time Received Time / Laterality Volume Narrative RAD - 03/12/2021 3:53 AM EST This exam is auto-finalizing. It's purpo se is for storage only. Rosemary Wiley MD IMG FILM LIBRARY ORDERABLES Performing Organization Address City/State/ZIP Code Phon e Number [place], [place] SCAN DOC: IMPLANTABLE DEVICES (03/12/2020 12:00 AM EST) Narrative This result has an attachment that is no t available. 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 of inferior vena cava IVC (inferior vena cava obstruction) Compression of vein DVT, lower extremity, proximal, acute, b ilateral Inguinal hernia without obstruction or g angrene, recurrence not specified, unspecified laterality Abnormality of esophagus Unspecified disorder of esophagus Gastroesophageal reflux disease without esophagitis Esophageal reflux Lung nodule Solitary pulmonary nodule Encounter to establish care Other reasons for seeking consultation documented in this encounter Admitting Diagnoses Diagnosis 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 Maximum daily dose of acetaminophen from all sources not to exceed 4,000 mg. When ordered for pain, acetaminophen should be given even when other ordered pain medications are indicated., Routine Given 03/20/2021 3:19 AM EST 975 mg Given 03/19/2021 9:14 PM EST 975 mg alteplase (Cathflo) injection 10 mg Given 03/15/2021 11:56 AM EST 10 mg 10 mg, INTRA-CATHETER, ONCE, 1 dose, On Thu03/15/21 at 1100, For use in Interventional Radiology (IR) only for procedure with direct provider supervision and verbal order. , Angio/IR (Intra-Procedure), Routine apixaban (Eliquis) tablet 5 mg Given 03/20/2021 9:36 AM EST 5 mg 5 mg, Oral, 2 TIMES DAILY, First dose on Thu03/18/21 at 1800, Until Discontinued, Anticoagulant, Routine, Restricted anticoagulant, choose the most appropriate response: Appoved indication of DVT and/or PE Given 03/19/2021 9:14 PM EST 5 mg Given 03/19/2021 8:43 AM EST 5 mg bisacodyL (Dulcolax) suppository 10 mg Given 03/19/2021 10:50 AM EST 10 mg 10 mg, Rectal, DAILY, First dose (after last modification) on Thu03/13/21 at 1130, Until Discontinued, Routine Given 03/16/2021 9:12 AM EST 10 mg bisacodyL (Dulcolax) suppository 10 mg 10 mg, Rectal, DAILY PRN, Starting on Thu03/16/21 at 1 108, Until Thu03/20/21 at 1712, Constipation, Routine vuoqhzeklz-qygjkgymuesvm-uxllkmyq (Esgic) per Given 03/16/19 6:14 PM 1 tablet tablet 1 tablet EST 1 tablet, Oral, EVERY 4 HOURS PRN, Starting on Thu03/16/21 at 0922, Until Thu03/18/21 at 1727, Headaches, Maximum dose of acetaminophen is 4000 mg from all sources in 24 hours., Routine Given 03/16/2021 3:14 PM EST 1 tablet calcium carbonate (Tums) chewable tablet 500 Given 4:08 AM EST 500 mg mg 500 mg, Oral, DAILY PRN, Starting on 03/16/21 at 1322, Until 03/18/21 at 0731, Heartburn, Routine Given 03/17/2021 7:00 AM EST 500 mg Given 03/16/2021 1:41 PM EST 500 mg calcium carbonate (Tums) chewable tablet Given 03/18/2021 8:08 A M EST 1,000 mg 500-1,000 mg 500-1,000 mg, Oral, EVERY 4 HOURS PRN, Starting on Thu03/18/21 at 0728, Until Thu03/20/21 at 1712, Heartburn, Give 500 mg (1 tablet) for mild to moderate heartburn. Give 1,000 mg (2 tablets) for severe heartburn., Routine ceFAZolin (Ancef) 2 g in dextrose 5% New Bag 03/15/2021 10:37 AM EST 2 g 200 mL/hr 100 mL infusion 2 g, Intravenous, ONCE, 1 dose, On Thu03/15/21 at 1030, Administer over 30 Minutes, Redose every 3 hours if CrCl is greater than 20. Redose every 8 hours if CrCl is less than 20., Angio/IR (Day of Procedure), Indication for (Active or Suspected): Prophylaxis fentaNYL (pf) (50 mcg/mL) multi-dose Given 03/15/2021 1:25 PM ES T 50 mcg injection 25-50 mcg 25-50 mcg, Intravenous, EVERY 3 MIN PRN, Starting on Thu03/15/21 at 0941, Until Thu03/15/21 at 1435, Pain, per unit protocol, - Start dose [...] and verbal order., Angio/IR (Intra-Procedure), Routine Given 03/15/2021 1:17 PM EST 25 mcg Given 03/15/2021 1:11 PM EST 25 mcg heparin (porcine) (1,000 units/mL) Given 03/13/2021 6:19 AM EST 3,000 Units injection 0-8,000 Units 0-8,000 Units, Intravenous, BOLUS PER HEPARIN PROTOCOL, Starting on Thu03/12/21 at 0503, Until Thu03/13/21 at 1036, Per Protocol, START ADJUSTMENT SCHEDULE 6 HOURS AFTER STARTING INFUSION Heparin UFH Level between 0.1 - 0.29 IU/mL: Bolus 3,000 units Heparin UFH Level less than 0.1 IU/mL: Bolus 6,050 units, Routine heparin (porcine) (1,000 units/mL) Given 03/13/2021 11:15 PM EST 6,650 Units injection 0-8,000 Units 0-8,000 Units, Intravenous, BOLUS PER HEPARIN PROTOCOL, Starting on Thu03/13/21 at 2020, Until Thu03/18/21 at 1727, Per Protocol, START ADJUSTMENT SCHEDULE 6 HOURS AFTER STARTING INFUSION Heparin UFH Level between 0.1 - 0.29 IU/mL: Bolus 3,350 units Heparin UFH Level less than 0.1 IU/mL: Bolus 6,650 units, Routine heparin (porcine) (1,000 units/mL) Given 03/15/2021 12:50 PM EST 6,000 Units injection 1,000-10,000 Units 1,000-10,000 Units, Intravenous, ONCE, 1 dose, On Thu03/15/21 at 1030, For use in Interventional Radiology (IR) only for procedure with direct provider supervision and verbal order. , Angio/IR (Intra-Procedure), Routine Given 03/15/2021 12:30 PM EST 2,000 Units Given 03/15/2021 11:54 AM EST 8,000 Units heparin (porcine) 50 Rate/Dose Change 03/13/2021 6:21 1,050 Units/hr 21 mL/hr units/mL in sodium AM EST chloride 0.45% 500 mL infusion 0-5,000 Units/hr (0-100 mL/hr), Intravenous, CONTINUOUS, Starting on Thu03/12/21 at 0506, Until Thu03/13/21 at 1036, Begin infusion at 1,300 units per hr (15 units/kg/hr). MAX INITIAL infusion rate is 1,750 units/hr Target Heparin UFH Level (anti-Xa activity) = 0.3 - 0.7 IU/mL Start adjustment schedule 6 hours after starting infusion. If Heparin UFH Level is: - less than 0.1 IU/mL, administer PRN bolus and increase rate by 350 units per hr (4 units/kg/hr) - 0.1 - 0.29 IU/mL, administer PRN bolus and increase rate by 150 units per hr (2 units/kg/hr) - 0.3 - 0.7 IU/mL, No Change - 0.71 - 0.85 IU/mL, decrease rate by 100 units per hr (1 units/kg/hr) - 0.86 - 1.05 IU/mL, stop infusion for 30 minutes, then decrease rate by 150 units per hr (2 units/kg/hr) - Greater than 1.05 IU/mL, stop infusion for 60 minutes, then decrease rate by 250 units per hour (3 units/kg/hr) Repeat Heparin UFH Level 6 hours after initiating heparin. Then 6 hours after each dose adjustment. When 2 consecutive Heparin UFH Level within target range of 0.3 - 0.7 IU/mL, change Heparin UFH Level to once every 24 hours with A.M. labs while on heparin. RN to order required Heparin UFH Level - Per Protocol, Routine New Bag 03/13/2021 6:01 AM EST 900 Units/hr 18 mL/hr Restarted 03/13/2021 1:31 AM EST 900 Units/hr 18 mL/hr heparin (porcine) 50 units/mL New Bag 03/18/2021 3:24 AM EST 1 ,750 Units/hr 35 mL/hr in sodium chloride 0.45% 500 mL infusion 0-5,000 Units/hr (0-100 mL/hr), Intravenous, CONTINUOUS, Starting on Thu03/13/21 at 2115, Until Thu03/18/21 at 1727, Begin infusion at 1,450 units per hr (15 units/kg/hr). MAX INITIAL infusion rate is 1,750 units/hr Target Heparin UFH Level (anti-Xa activity) = 0.3 - 0.7 IU/mL Start adjustment schedule 6 hours after starting infusion. If Heparin UFH Level is: - less than 0.1 IU/mL, administer PRN bolus and increase rate by 400 units per hr (4 units/kg/hr) - 0.1 - 0.29 IU/mL, administer PRN bolus and increase rate by 200 units per hr (2 units/kg/hr) - 0.3 - 0.7 IU/mL, No Change - 0.71 - 0.85 IU/mL, decrease rate by 100 units per hr (1 units/kg/hr) - 0.86 - 1.05 IU/mL, stop infusion for 30 minutes, then decrease rate by 200 units per hr (2 units/kg/hr) - Greater than 1.05 IU/mL, stop infusion for 60 minutes, then decrease rate by 300 units per hour (3 units/kg/hr) Repeat Heparin UFH Level 6 hours after initiating heparin. Then 6 hours after each dose adjustment. When 2 consecutive Heparin UFH Level within target range of 0.3 - 0.7 IU/mL, change Heparin UFH Level to once every 24 hours with A.M. labs while on heparin. RN to order required Heparin UFH Level - Per Protocol, Routine New Bag 03/17/2021 1:51 PM EST 1,750 Units/hr 35 mL/hr New Bag 03/17/2021 12:53 AM EST 1,750 Units/hr 35 mL/hr HYDROmorphone (Dilaudid) (0.5 mg/0.5 mL) Given 03/12/2021 10:31 AM EST 0.5 mg injection syringe 0.5 mg 0.5 mg, Intravenous, EVERY 2 HOURS PRN, Starting on Thu03/12/21 at 0813, Until Thu03/12/21 at 1039, Pain, STAT Given 03/12/2021 8:26 AM EST 0.5 mg HYDROmorphone (Dilaudid) (1 mg/mL) injection Given 2:05 AM EST 0.2 mg syringe 0.2 mg 0.2 mg, Intravenous, EVERY 4 HOURS PRN, Starting on Thu03/13/21 at 1532, Until Thu03/20/21 at 1712, Pain, mild pain (1-3), May give an additional 0.2 mg in 30 minutes once if pain not relieved. For pain unrelieved by PO oxycodone PRN and other as needed pain medications., Routine HYDROmorphone (Dilaudid) (1 mg/mL) injection Given 12:09 PM EST 0.4 mg syringe 0.4 mg 0.4 mg, Intravenous, EVERY 4 HOURS PRN, Starting on Thu03/13/21 at 1532, Until Thu03/20/21 at 1712, Pain, moderate pain (4-6), May give an additional 0.2 mg in 30 minutes once if pain not relieved. For pain unrelieved by PO oxycodone PRN and other as needed pain medications., Routine HYDROmorphone (Dilaudid) (1 mg/mL) injec tion syringe 0.6 mg 0.6 mg, Intravenous, EVERY 4 HOURS PRN, Starting on Thu03/13/21 at 1532, Until Thu03/20/21 at 1712, Pain, severe pain (7-10), May give an additional 0.2 mg in 30 minutes once if pain not relieved. For pain unrelieved by PO oxycodone PRN and other as needed pain medications., Routine HYDROmorphone (Dilaudid) (2 mg/mL) injection Given 01/2022 6:00 AM EST 0.6 mg solution 0.6 mg 0.6 mg, Intravenous, EVERY 4 HOURS PRN, Starting on Thu03/12/21 at 1024, Until Thu03/13/21 at 1532, Pain, severe pain (7-10), May give an additional 0.2 mg in 30 minutes once if pain not relieved. For pain unrelieved by PO oxycodone PRN and other as needed pain medications., Routine HYDROmorphone (Dilaudid) (2 mg/mL) Given 03/18/2021 12:27 PM EST 0.2 mg multi-dose injection solution 0.2 mg 0.2 mg, Intravenous, EVERY 10 MIN PRN, Starting on Thu03/18/21 at 1129, Until Thu03/18/21 at 1415, Pain, For Mild to Moderate Pain (1-5 out of 10), Hold for respiratory rate less than 10 per minute. Maximum dose 3 mg over one hour including administrations in the OR. If multiple pain medications are ordered, start with HYDROmorphone or morphine and use fentaNYL for breakthrough pain, PACU Recovery, Routine HYDROmorphone (Dilaudid) (2 mg/mL) Given 03/14/2021 10:20 AM EST 0.4 mg multi-dose injection solution 0.4 mg 0.4 mg, Intravenous, EVERY 10 MIN PRN, Starting on Gisella 03/14/21 at 0906, Until Gisella 03/14/21 at 1111, Pain, For Moderate to Severe Pain (6-10 out of 10), Hold for respiratory rate less than 10 per minute. Maximum dose 3 mg over one hour including administrations in the OR. If multiple pain medications are ordered, start with HYDROmorphone or morphine and use fentaNYL for breakthrough pain, PACU Recovery, Routine Given 03/14/2021 10:06 AM EST 0.2 mg Given 03/14/2021 9:52 AM EST 0.4 mg iodixanoL (Visipaque) (320 mg/mL) injection Given 03/02 10:30 AM EST 200 mLs solution 1-400 mL 1-400 mL, Intra-arterial, ONCE, 1 dose, On Thu03/15/21 at 1030, For intra-procedural use by proceduralist., Angio/IR (Intra-Procedure), Routine iohexoL (Omnipaque) (350 mg/mL) solution Given 03/12/2021 8:12 A M EST 150 mLs 0-200 mL 0-200 mL, Intravenous, ONCE PRN, 1 dose, Starting on Thu03/12/21 at 0812, Until Thu03/12/21 at 0812, Per Protocol, Warning Vesicant/Irritant Medication , Radiology Contrast, Routine iohexoL (Omnipaque) (350 mg/mL) solution Given 03/14/2021 12:44 PM EST 110 mLs 0-200 mL 0-200 mL, Intravenous, ONCE PRN, 1 dose, Starting on Thu03/14/21 at 1244, Until Thu03/14/21 at 1244, Per Protocol, Warning Vesicant/Irritant Medication , Radiology Contrast, Routine ketamine (Ketalar) (10 mg/mL) injection 17.2 Given 12/2021 6:30 AM EST 17.2 mg mg 17.2 mg (rounded from 17.24 mg = 0.2 mg/kg/dose ? 86.2 kg), Intravenous, ONCE, 1 dose, On Thu03/12/21 at 0558, STAT lactated Ringers 1,000 mL IV bolus New Bag 03/13/2021 4:57 AM EST Intravenous, ONCE, 1 dose, On Thu03/13/21 at 0530 lactated Ringers 500 mL IV bolus New Bag 03/12/2021 5:12 PM EST Intravenous, ONCE, 1 dose, On Thu03/12/21 at 1800 lactated Ringers 500 mL IV bolus New Bag 03/19/2021 11:01 AM EST Intravenous, ONCE, 1 dose, On Thu03/19/21 at 1145 lactated ringers infusion New Bag 03/12/2021 4:43 PM EST 50 mL/hr 50 mL/hr 50 mL/hr, Intravenous, CONTINUOUS, Starting on Thu03/12/21 at 1730, Until Thu03/12/21 at 1919, Recovery (Recovery-Hospital Unit) lactated ringers infusion Continued Bag 03/12/2021 8:37 PM EST 60 mL/hr 60 mL/hr 60 mL/hr, Intravenous, CONTINUOUS, Starting on Thu03/12/21 at 2115, Until Thu03/12/21 at 2040 levothyroxine (Synthroid) tablet 88 mcg Given 03/20/2021 5:42 AM EST 88 mcg 88 mcg, Oral, EVERY MORNING, First dose on Thu03/13/21 at 0600, Until Discontinued, Routine Given 03/19/2021 5:41 AM EST 88 mcg Given 03/18/2021 5:57 AM EST 88 mcg lidocaine (Lidoderm) 5% Patch Applied 03/18/2021 5:20 PM 3 patches 15- Thigh patch 3 patch EST Anterior (Left) 3 patch, Transdermal, EVERY 24 HOURS, First dose on Thu03/14/21 at 1800, Until Discontinued, Apply patch(es) for 12 hours, and then remove for 12 hours., Routine Patch Applied 03/16/2021 6:13 PM EST 3 patches 14- Abdomen (Right) Patch Applied 03/15/2021 6:05 PM EST 3 patches 13- Abdomen (Left) lidocaine (Lidoderm) topical patch REMOV AL Transdermal, EVERY 24 HOURS, First dose on Thu03/15/21 at 0600, Until Discontinued, Remove lidocaine 5% patch lidocaine (Xylocaine) 1% (10 mg/mL) injection Given 10:57 AM EST 10 mg 10 mg 10 mg, Subcutaneous, ONCE, 1 dose, On Thu03/15/21 at 1030, For use in Interventional Radiology (IR) only for procedure with direct provider supervision and verbal order., Angio/IR (Intra-Procedure), Routine lidocaine (Xylocaine) 1% (10 mg/mL) inje ction 3 mg 3 mg (0.3 mL), Subcutaneous, ONCE PRN, 1 dose, Startin g on Thu03/15/21 at 0937, Until Thu03/20/21 at 1712, for discomfort with PIV ins ertion, Routine magnesium citrate oral liquid 296 mL 296 mL, Oral, DAILY PRN, Starting on Thu03/18/21 at 17 28, Until Thu03/20/21 at 1712, Constipation, Administer if no bow el movement within 48 hrs to achieve 1) one bowel movement at least every 48 hrs and 2) without st raining. If multiple PRN bowel medications ordered, start with polyethylene gly col, then lactulose, then oral bisacodyl, then bisacodyl supposito ry, then magnesium citrate, then tap water enema. Multiple medications may be given concomitantly for constipation. May repeat times 1 in 4 hours., Routine magnesium sulfate 2 g in sterile water New Bag 03/13/2021 3:52 AM EST 2 g 25 mL/hr 50 mL infusion 2 g, Intravenous, EVERY 2 HOURS, 2 doses, First dose on Thu03/13/21 at 0200, Last dose on Thu03/13/21 at 0400, Administer over 120 Minutes New Bag 03/13/2021 1:18 AM EST 2 g 25 mL/hr melatonin tablet 3-6 mg Given 03/13/2021 9:21 PM EST 3 mg 3-6 mg, Oral, NIGHTLY PRN, Starting on Thu03/12/21 at 2204, Until Thu03/14/21 at 1653, insomnia, Routine Given 03/13/2021 3:22 AM EST 3 mg Given 03/12/2021 10:20 PM EST 3 mg melatonin tablet 9 mg Given 03/19/2021 9:18 PM EST 9 mg 9 mg, Oral, NIGHTLY PRN, Starting on Thu03/14/21 at 1653, Until Thu03/20/21 at 1712, insomnia, Routine Given 03/18/2021 9:02 PM EST 9 mg Given 03/18/2021 12:19 AM EST 9 mg midazolam (pf) (Versed) (1 mg/mL) multi-dose Given 1:05 PM EST 0.5 mg injection 0.5-1 mg 0.5-1 mg, Intravenous, EVERY 3 MIN PRN, Starting on Thu03/15/21 at 0941, Until Thu03/15/21 at 1435, Sleep, - Start dose; 1 mg (Reduce [...] and verbal order., Angio/IR (Intra-Procedure), Routine Given 03/15/2021 12:55 PM EST 0.5 mg Given 03/15/2021 12:33 PM EST 0.5 mg ondansetron (pf) (Zofran) (2 mg/mL) inje ction 4 mg 4 mg, Intravenous, EVERY 8 HOURS PRN, St arting on Thu03/12/21 at 1639, Until Thu03/20/21 at 1712, Nausea, May repeat time s one in 30 minutes if ineffective. If multiple antiemetics are ordered, use ondansetron firs t, Recovery (Recovery-Hospital Unit) ondansetron (Zofran) tablet 4 mg 4 mg, Oral, EVERY 8 HOURS PRN, Starting on Thu03/12/21 at 1639, Until Thu03/20/21 at 1712, Nausea, Vomiting, If multipl e antiemetics are ordered, use ondansetron first. PO Preferred. If patient unable to take PO, may give IV if ordered. May repeat times one in 45 minutes if ineffe ctive., Recovery (Recovery-Hospital Unit), Routine oxyCODONE (Roxicodone) tablet 10 mg Given 03/19/2021 10:49 AM EST 10 mg 10 mg, Oral, EVERY 4 HOURS PRN, Starting on Thu03/12/21 at 1644, Until Thu03/20/21 at 1712, Pain, severe pain (7-10), Routine Given 03/14/2021 10:22 AM EST 10 mg oxyCODONE (Roxicodone) tablet 5 mg Given 03/20/2021 5:46 AM EST 5 mg 5 mg, Oral, EVERY 4 HOURS PRN, Starting on Thu03/12/21 at 1644, Until Thu03/20/21 at 1712, Pain, moderate pain (4-6), Routine Given 03/19/2021 10:40 PM EST 5 mg Given 03/16/2021 12:46 AM EST 5 mg pantoprazole EC (Protonix) tablet 20 mg Given 03/17/2021 8:44 AM EST 20 mg 20 mg, Oral, DAILY, First dose on Thu03/13/21 at 0900, Until Discontinued Given 03/16/2021 9:00 AM EST 20 mg Given 03/15/2021 2:50 PM EST 20 mg pantoprazole EC (Protonix) tablet 40 mg Given 03/20/2021 9:36 AM EST 40 mg 40 mg, Oral, DAILY, First dose (after last modification) on Thu03/18/21 at 0900, Until Discontinued Given 03/19/2021 8:43 AM EST 40 mg Given 03/18/2021 8:08 AM EST 40 mg perflutren protein-A microsphers (Optison) Given 03/13/2021 1:10 PM EST 3 mLs (0.22 mg/mL) injection 3 mL 3 mL, Intravenous, ONCE PRN, 1 dose, Starting on Thu03/13/21 at 1332, Until Thu03/13/21 at 1310, for enhancement of sub-optimal echo images, Echo Lab (Intra-Procedure), Routine polyethylene glycoL (Miralax) packet 17 g Given 03/19/2021 8:43 AM EST 17 g 17 g, Oral, DAILY, First dose on Thu03/12/21 at 1745, Until Discontinued, Routine Given 03/16/2021 9:12 AM EST 17 g Given 03/15/2021 2:51 PM EST 17 g potassium bicarbonate (Effer-K) effervescent Given 1:48 AM EST 40 mEq tablet 20-60 mEq 20-60 mEq, Per NG tube, EVERY 4 HOURS PRN, Starting on Thu03/13/21 at 0104, Until Thu03/20/21 at 1712, hypokalemia, For serum potassium: 3.9 - 4 mMol/L = 20 mEq. 3.6 - 3.8 mMol/L = 40 mEq. 3.3 - 3.5 mMol/L = 40 mEq. 2.8 - 3.2 mMol/L = 60 mEq. Less than 2.8 = Call physician, then begin potassium chloride replacement via central or peripheral IV route. See instructions for Potassium Protocol in online policies. Do not crush or chew, tablet is meant for dissolution in liquid prior to consumption. 10 mEq tablets: dissolve in 60 - 90 mL of cold water (flavored tablets) or juice (unflavored tablets) 20 mEq tablets: dissolve in 90 - 120 mL of cold water (flavored tablets) or juice (unflavored tablets), Routine Given 03/13/2021 6:34 AM EST 40 mEq Given 03/13/2021 1:18 AM EST 40 mEq potassium, sodium phosphates (Neutra-Phos) Given 03/14/2021 12:0 2 PM EST 1.5 g 280-160-250 mg oral packet 1.5 g 1.5 g, Oral, ONCE, 1 dose, On Thu03/14/21 at 1030, Take with full glass of water, Routine senna (Senokot) tablet 8.6 mg Given 03/14/2021 12:02 PM EST 8.6 mg 8.6 mg, Oral, 2 TIMES DAILY, First dose on Thu03/12/21 at 2100, Until Discontinued, Routine Given 03/13/2021 8:56 PM EST 8.6 mg Given 03/13/2021 8:15 AM EST 8.6 mg senna-docusate (Pericolace) 8.6-50 mg per Given 2021 9:36 AM EST 2 tablets tablet 2 tablet 2 tablet, Oral, 2 TIMES DAILY, First dose on Thu03/14/21 at 2100, Until Discontinued, Routine Given 03/19/2021 9:14 PM EST 2 tablets Given 03/19/2021 8:43 AM EST 2 tablets sodium chloride 0.9 % (flush) (BD PosiFlush Given 03/19/2021 9:1 5 PM EST 5 mLs Normal Saline 0.9) flush 5 mL 5 mL, Intravenous, 2 TIMES DAILY, First dose on Thu03/12/21 at 2100, Until Discontinued, Recovery (Recovery-Hospital Unit), Routine Given 03/19/2021 8:44 AM EST 5 mLs Given 03/18/2021 9:08 PM EST 5 mLs sodium chloride 0.9 % (flush) (BD PosiFlush Given 03/20/2021 9:37 AM EST 10 mLs Normal Saline 0.9) flush 5 mL 5 mL, Intravenous, 2 TIMES DAILY, First dose on Thu03/15/21 at 1030, Until Discontinued, Routine Given 03/19/2021 9:15 PM EST 5 mLs Given 03/19/2021 8:44 AM EST 5 mLs sodium chloride 0.9 % (flush) (BD PosiFl ush Normal Saline 0.9) flush 5-20 mL 5-20 mL, Intravenous, EVERY 1 MIN PRN, S tarting on Thu03/15/21 at 0937, Until Thu03/20/21 at 1712, flush, Flush pertains t o all indwelling lines. Flush per protocol found in the job aid using the link prov ided on this medication record., Routine documented in this encounter Active and Recently Administered Medications Times are shown in EST. Scheduled Medication Order 03/18/2021 03/19/2021 03/20/2021 acetaminophen (Tylenol) tablet 975 mg 0300 (Not Given - Provider: Cristina Lozano RN - Reason: Patient/family refused)0900 (Not Given - Provider: Rosita Patel RN - Reason: Patient/family refused)1035 (MAR Hold - Provider: Admin Adt - Reason: Transfer to a Procedural area) 0222 (Given - Provider: Cristina Lozano RN)0843 (Given - Provider: Rosita Patel RN)1619 (Given - Provider: Rosita Patel RN - Comment: PT team.)2114 (Given - Provider: Charlene Concepcion RN) 0319 (Given - Provider: Charlene Modi, JOSE ELIAS)0936 (Given - Provider: Carolina Bullard RN) 975 mg, Oral, EVERY 6 HOURS, First dose on Thu03/12/21 at 1730, Until Discontinued, Administer for temperature greater than or equal to 38.2 degrees celsius. Maximum daily dose of acetaminophen from all 141 (APR Unhold - Provider: Admin Adt)1451 (Given - Provider: Angelita Liu RN)2101 (Given - Provider: Cristina Lozano, JOSE ELIAS) sources not to exceed 4,000 mg. When or dered for pain, acetaminophen should be given even when other ordered pain medications are indicated., Routine apixaban (Eliquis) tablet 5 mg 1758 (Given - Provider: Bee Kaplan RN) 0843 (Given - Provider: Rosita Patel RN)2114 (Given - Provider: Charlene Concepcion, JOSE ELIAS) 0936 (Given - Provider: Carolina Bullard RN) 5 mg, Oral, 2 TIMES DAILY, First dose on Thu03/18/21 at 1800, Until Discontinued, Anticoagulant, Routine bisacodyL (Dulcolax) suppository 10 mg 0900 (Not Given - Provider: Rosita Patel RN - Reason: Patient/family refused)1035 (APR Hold - Provider: Admin Adt - Reason: Transfer to a Procedural area)1419 (APR Unhold - Provider: Admin Adt) 1050 (Given - Provider: Sydnie Meredith, JOSE ELIAS) 0900 ( Not Given - Provider: Carolina Bullard RN - Reason: Patient/family refused) 10 mg, Rectal, DAILY, First dose (after last modification) on Thu03/13/21 at 1130, Until Discontinued, Routine lactated Ringers 500 mL IV bolus (COMPLETED) 1101 (New Bag - Provider: Sydnie Meredith RN) Intravenous, ONCE, 1 dose, On Thu03/19/21 at 1145 levothyroxine (Synthroid) tablet 88 mcg 0557 (Given - Provider: Cristina Lozano, JOSE ELIAS)1035 (APR Hold - Provider: Admin Adt - Reason: Transfer to a Procedural area)1419 (APR Unhold - Provider: Admin Adt) 0541 (Given - Provider: Cristina Lozano RN) 0542 (Given - Provider: Charlene Modi, JOSE ELIAS) 88 mcg, Oral, EVERY MORNING, First dose on Thu03/13/21 at 0600, Until Discontinued, Routine lidocaine (Lidoderm) 5% patch 3 patch(Linked Group 1) 1035 (APR Hold - Provider: Admin Adt - Reason: Transfer to a Procedural area)1419 (APR Unhold - Provider: Admin Adt)1720 (Patch Applied - Provider: Bee Kaplan RN - Comment: 2 Left thigh 1 right thigh) 1800 (Not Given - Provider: Rosita bentley RN - Reason: Patient/family refused) 3 patch, Transdermal, EVERY 24 HOURS, Fi rst dose on Thu03/14/21 at 1800, Until Discontinued, Apply patch(es) for 12 hours, and then remove for 12 hours., Routine lidocaine (Lidoderm) topical patch REMOVAL(Linked Grou p 1) 0600 (Patch Not Removed (add comment) - Provider: Cristina Lozano RN - Comment: not applied)1035 (APR Hold - Provider: Admin Adt - Reason: Transfer to a Procedural area)1419 (APR Unhold - Provider: Admin Adt) 0600 (Patch Removed - Provider: Cristina Lozano, JOSE ELIAS) 0600 (Patch Not Removed (add comment) - Provider: Charlene Concepcion RN - Comment: not applied) Transdermal, EVERY 24 HOURS, First dose on Thu03/15/21 at 0600, Until Discontinued, Remove lidocaine 5% patch pantoprazole EC (Protonix) tablet 40 mg 0808 (Given - Provider: Bee Kaplan RN)1035 (APR Hold - Provider: Admin Adt - Reason: Transfer to a Procedural area)1419 (APR Unhold - Provider: Admin Adt) 0843 (Given - Provider: Rosita Patel RN) 0936 (Given - Provider: Carolina Bullard, JOSE ELIAS) 40 mg, Oral, DAILY, First dose (after la st modification) on Thu03/18/21 at 0900, Until Discontinued polyethylene glycoL (Miralax) packet 17 g 0900 (Not Gi luis - Provider: Rosita Patel, JOSE ELIAS - Reason: Patient/family refused)1035 (APR Hold - Provider: Admin Adt - Reason: Transfer to a Procedural area)1419 (APR Unhold - Provider: Admin Adt) 0843 (Given - Provider: Rosita Patel, JOSE ELIAS) 0900 (No t Given - Provider: Carolina Bullard RN - Reason: Patient/family refused) 17 g, Oral, DAILY, First dose on 03/02 at 1745, Until Discontinued, Routine senna-docusate (Pericolace) 8.6-50 mg per tablet 2 tab let 0900 (Not Given - Provider: Rosita Patel RN - Reason: Patient/family refused)1035 (APR Hold - Provider: Admin Adt - Reason: Transfer to a Procedural area)141 (APR Unhold - Provider: Admin Adt)2101 (Given - Provider: Cristina Lozano RN) 08 (Given - Provider: Rosita Patel RN)2113 (Given - Provider: Charlene Modi, JOSE ELIAS) 09 (Given - Provider: Carolina Bullard, JOSE ELIAS) 2 tablet, Oral, 2 TIMES DAILY, First dos e on Thu03/14/21 at 2100, Until Discontinued, Routine sodium chloride 0.9 % (flush) (BD PosiFlush Normal Nir ine 0.9) flush 5 mL 0900 (Given - Provider: Rosita Patel RN)2107 (Given - Provider: Cristina Lozano RN) 08 (Given - Provider: Rosita Patel RN)2114 (Given - Provider: Charlene Concepcion RN) 0900 (Not Given - Provider: Carolina Bullard RN - Reason: Order parameters not met) 5 mL, Intravenous, 2 TIMES DAILY, First dose on Thu03/12/21 at 2100, Until Discontinued, Recovery (Recovery-Hospital Unit), Routine sodium chloride 0.9 % (flush) (BD PosiFlush Normal Nir ine 0.9) flush 5 mL 0900 (Given - Provider: Rosita Patel RN)1035 (APR Hold - Provider: Admin Adt - Reason: Transfer to a Procedural area)141 ([facility] Unhold - Provider: Admin Adt)2107 (Given - Provider: Cristina Lozano RN) 0844 (Given - Provider: Rosita Patel RN)2114 (Given - Provider: Charlene Concepcion RN) 0937 (Given - Provider: Carolina Bullard RN) 5 mL, Intravenous, 2 TIMES DAILY, First dose on Thu03/15/21 at 1030, Until Discontinued, Routine Continuous Medication Order 03/18/2021 03/19/2021 03/20/2021 heparin (porcine) 50 units/mL in sodium chloride 0.45% 500 mL infusion (CANCELED) 0324 (New Bag - Provider: Cristina carmona RN)1035 (APR Hold - Provider: Admin Adt - Reason: Transfer to a Procedural area)1419 (APR Unhold - Provider: Admin Adt)1727 (Stopped - Provider: Bee Kaplan RN) 0-5,000 Units/hr (0-100 mL/hr), Intraven ous, CONTINUOUS, Starting on Thu03/13/21 at 2115, Until Thu03/18/21 at 1727, Begin infusion at 1,450 units per hr (15 units/kg/hr). MAX INITIAL infusion rate is 1 ,750 units/hr Target Heparin UFH Level ( anti-Xa activity) = 0.3 - 0.7 IU/mL Start adjustment schedule 6 hours after starting infusion. If Heparin UFH Level is: - less than 0.1 IU/mL, administer PRN bolu s and increase rate by 400 units per hr (4 units/kg/hr) - 0.1 - 0.29 IU/mL, administer PRN bolus and increase rate by 200 units per hr (2 units/kg/hr) - 0.3 - 0.7 IU/mL, No Change - 0.71 - 0.85 IU/mL, d ecrease rate by 100 units per hr (1 unit s/kg/hr) - 0.86 - 1.05 IU/mL, stop infusion for 30 minutes, then decrease rate by 200 units per hr (2 units/kg/hr) - Greater than 1.05 IU/mL, stop infusion for 60 minutes, then decrease rate by 300 unit s per hour (3 units/kg/hr) Repeat Heparin UFH Level 6 hours after initiating heparin. Then 6 hours after each dose adjustment. When 2 consecutive Heparin UFH Leve l within target range of 0.3 - 0.7 IU/mL , change Heparin UFH Level to once every 24 hours with A.M. labs while on heparin. RN to order required Heparin UFH Level - Per Protocol, Routine PRN Medication Order 03/18/2021 03/19/2021 03/20/2021 bisacodyL (Dulcolax) suppository 10 mg 1035 ([facility] Hold - Provider: Admin Adt - Reason: Transfer to a Procedural area)1419 ([facility] Unhold - Provider: Admin Adt) 10 mg, Rectal, DAILY PRN, Starting on Sa t 03/16/21 at 1108, Until Thu03/20/21 at 1712, Constipation, Routine calcium carbonate (Tums) chewable tablet 500 mg (CANCE LED) 0408 (Given - Provider: Cristina Lozano, RN) 500 mg, Oral, DAILY PRN, Starting on 03/16/21 at 1322, Until Thu03/18/21 at 0731, Heartburn, Routine calcium carbonate (Tums) chewable tablet 500-1,000 mg 0808 (Given - Provider: Bee Kaplan RN)103 ([facility] Hold - Provider: Admin Adt - Reason: Transfer to a Procedural area)141 ([facility] Unhold - Provider: Admin Adt) 500-1,000 mg, Oral, EVERY 4 HOURS PRN, S tarting on Thu03/18/21 at 0728, Until Thu03/20/21 at 1712, Heartburn, Give 500 mg (1 tablet) for mild to moderate heartburn. Give 1,000 mg (2 tablets) for severe heartburn., Routine HYDROmorphone (Dilaudid) (1 mg/mL) injection syringe 0 .2 mg(Linked Group 2) 1035 ([facility] Hold - Provider: Admin Adt - Reason: Transfer to a Procedural area)1209 (See Alternative - Provider: Laura Cartagena RN)141 ([facility] Unhold - Provider: Admin Adt) 0.2 mg, Intravenous, EVERY 4 HOURS PRN, Starting on Thu03/13/21 at 1532, Until Thu03/20/21 at 1712, Pain, mild pain (1-3), May give an additional 0.2 mg in 30 minutes once if pain not relieved. For pain unrelieved by PO oxycodone PRN and other as needed pain med ications., Routine HYDROmorphone (Dilaudid) (1 mg/mL) injection syringe 0 .4 mg(Linked Group 2) 1035 ([facility] Hold - Provider: Admin Adt - Reason: Transfer to a Procedural area)1209 (Given - Provider: Laura Cartagena RN)141 (MAR Unhold - Provider: Admin Adt) 0.4 mg, Intravenous, EVERY 4 HOURS PRN, Starting on Thu03/13/21 at 1532, Until Thu03/20/21 at 1712, Pain, moderate pain (4-6), May give an additional 0.2 mg in 30 minutes once if pain not relieved. For pain unrelieved by PO oxycodone PRN and other as needed pain medications., Routine HYDROmorphone (Dilaudid) (1 mg/mL) injection syringe 0 .6 mg(Linked Group 2) 1035 (APR Hold - Provider: Admin Adt - Reason: Transfer to a Procedural area)1209 (See Alternative - Provider: Laura Cartagena RN)1419 (APR Unhold - Provider: Admin Adt) 0.6 mg, Intravenous, EVERY 4 HOURS PRN, Starting on Thu03/13/21 at 1532, Until Thu03/20/21 at 1712, Pain, severe pain (7-10), May give an additional 0.2 mg in 30 minutes once if pain not relieved. For p ain unrelieved by PO oxycodone PRN and o ther as needed pain medications., Routine HYDROmorphone (Dilaudid) (2 mg/mL) multi -dose injection solution 0.2 mg (CANCELED) 1227 (Given - Provider: Laura Cartagena RN) 0.2 mg, Intravenous, EVERY 10 MIN PRN, S tarting on Thu03/18/21 at 1129, Until Thu03/18/21 at 1415, Pain, For Mild to Moderate Pain (1-5 out of 10), Hold for respiratory rate less than 10 per minute. Max imum dose 3 mg over one hour including a dministrations in the OR. If multiple pain medications are ordered, start with HYDROmorphone or morphine and use fentaNYL for breakthrough pain, PACU Recovery, Routine lidocaine (Xylocaine) 1% (10 mg/mL) injection 3 mg 3 mg (0.3 mL), Subcutaneous, ONCE PRN, 1 dose, Starting on Thu03/12/21 at 1639, Until Thu03/20/21 at 1712, for discomfort with PIV insertion, Recovery (Recovery-Hospital Unit), Routine lidocaine (Xylocaine) 1% (10 mg/mL) injection 3 mg 103 5 (APR Hold - Provider: Admin Adt - Reason: Transfer to a Procedural area)1419 ([facility] Unhold - Provider: Admin Adt) 3 mg (0.3 mL), Subcutaneous, ONCE PRN, 1 dose, Starting on Thu03/15/21 at 0937, Until Thu03/20/21 at 1712, for discomfort with PIV insertion, Routine magnesium citrate oral liquid 296 mL 296 mL, Oral, DAILY PRN, Starting on 03/18/21 at 1728, Until Thu03/20/21 at 1712, Constipation, Administer if no bowel movement within 48 hrs to achieve 1) one bowel movement at least every 48 hrs an d 2) without straining. If multiple PRN bowel medications ordered, start with polyethylene glycol, then lactulose, then oral bisacodyl, then bisacodyl suppository, then magnesium citrate, then tap water enema. Multiple medications may be give n concomitantly for constipation. May repeat times 1 in 4 hours., Routine melatonin tablet 9 mg 0019 (Given - Provider: Hannah Lozano RN)1035 ([facility] Hold - Provider: Admin Adt - Reason: Transfer to a Procedural area)1419 ([facility] Unhold - Provider: Admin Adt)210 (Given - Provider: Cristina Lozano RN) 2117 (Given - Provider: Charlene Concepcion RN) 9 mg, Oral, NIGHTLY PRN, Starting on Gisella 03/14/21 at 1653, Until Thu03/20/21 at 1712, insomnia, Routine ondansetron (pf) (Zofran) (2 mg/mL) injection 4 mg(Linked Group 3) 4 mg, Intravenous, EVERY 8 HOURS PRN, St arting on Thu03/12/21 at 1639, Until Thu03/20/21 at 1712, Nausea, May repeat times one in 30 minutes if ineffective. If multiple antiemetics are ordered, use o ndansetron first, Recovery (Recovery-Hospital Unit) ondansetron (Zofran) tablet 4 mg(Linked Group 3) 4 mg, Oral, EVERY 8 HOURS PRN, Starting on Thu03/12/21 at 1639, Until Thu03/20/21 at 1712, Nausea, Vomiting, If multiple antiemetics are ordered, use ondansetron first. PO Preferred. If patient patsy ble to take PO, may give IV if ordered. May repeat times one in 45 minutes if ineffective., Recovery (Recovery-Hospital Unit), Routine oxyCODONE (Roxicodone) tablet 10 mg(Linked Group 4) 10 35 ([facility] Hold - Provider: Admin Adt - Reason: Transfer to a Procedural area)1419 ([facility] Unhold - Provider: Admin Adt) 1049 (Given - Provider: Sydnie lee RN)2240 (See Alternative - Provider: Charlene Concepcion RN) 0546 (See Alternative - Provider: Charlene Concepcion RN) 10 mg, Oral, EVERY 4 HOURS PRN, Starting on Thu03/12/21 at 1644, Until Thu03/20/21 at 1712, Pain, severe pain (7-10), Routine oxyCODONE (Roxicodone) tablet 5 mg(Linked Group 4) 103 5 ([facility] Hold - Provider: Admin Adt - Reason: Transfer to a Procedural area)1419 ([facility] Unhold - Provider: Admin Adt) 1049 (See Alternative - Provider: Sheila Meredith RN)2240 (Given - Provider: Charelne Concepcion RN) 0546 (Given - Provider: Charlene Concepcion RN) 5 mg, Oral, EVERY 4 HOURS PRN, Starting on Thu03/12/21 at 1644, Until Thu03/20/21 at 1712, Pain, moderate pain (4-6), Routine potassium bicarbonate (Effer-K) effervescent tablet 20 -60 mEq 1035 ([facility] Hold - Provider: Admin Adt - Reason: Transfer to a Procedural area)1419 ([facility] Unhold - Provider: Admin Adt) 20-60 mEq, Per NG tube, EVERY 4 HOURS LA N, Starting on Thu03/13/21 at 0104, Until Thu03/20/21 at 1712, hypokalemia, For serum potassium: 3.9 - 4 mMol/L = 20 mEq. 3.6 - 3.8 mMol/L = 40 mEq. 3.3 - 3.5 mMol/L = 40 mEq. 2.8 - 3.2 mMol /L = 60 mEq. Less than 2.8 = Call physician, then begin potassium chloride replacement via central or peripheral IV route. See instructions for Potassium Protocol in online policies. Do not crush or chew, tablet is meant for dissolution in liquid prior to consumption. 10 mEq tablets: dissolve in 60 - 90 mL of cold water (flavored tablets) or juice (unflavored tablets) 20 mEq tablets: dissolve in 90 - 120 mL of cold water (flavored tablets) or juice (unflavored tablets), Routine sodium chloride 0.9 % (flush) (BD PosiFlush Normal Saline 0.9) f lush 5-20 mL 5-20 mL, Intravenous, EVERY 1 MIN PRN, S tarting on Thu03/12/21 at 1639, Until Thu03/20/21 at 1712, flush, Flush pertains to all indwelling lines. Flush per protocol found in the job aid using the link p rovided on this medication record., Recovery ([facility] Unit), Routine sodium chloride 0.9 % (flush) (BD PosiFlush Normal Nir ine 0.9) flush 5-20 mL 1035 (APR Hold - Provider: Admin Adt - Reason: Transfer to a Procedural area)1419 (APR Unhold - Provider: Admin Adt) 5-20 mL, Intravenous, EVERY 1 MIN PRN, S tarting on Thu03/15/21 at 0937, Until Thu03/20/21 at 1712, flush, Flush pertains to all indwelling lines. Flush per protocol found in the job aid using the link provided on this medication record., Routine Linked Groups Order Group 1: lidocaine (Lidoderm) 5% patch 3 patchJump to med 3 patch, Transdermal, EVERY 24 HOURS, Fi rst dose on Thu03/14/21 at 1800, Until Discontinued
Apply patch(es) for 12 hours, and then remove for 12 hours.
Routine And lidocaine (Lidoderm) topical patch REMOVALJump to med Transdermal, EVERY 24 HOURS, First dose on Thu03/15/21 at 0600, Until Discontinued
Remove lidocaine 5% patch
Group 2: HYDROmorphone (Dilaudid) (1 mg/mL) injection syringe 0.2 mgJump to med 0.2 mg, Intravenous, EVERY 4 HOURS PRN, Starting on Thu03/13/21 at 1532, Until Thu03/20/21 at 1712, Pain, mild pain (1-3)
May give an additional 0.2 mg in 30 minutes once if pain not relieved. For pain unrelieved by PO oxycodone PRN and other as needed pain medications.
Routine Or HYDROmorphone (Dilaudid) (1 mg/mL) injection syringe 0.4 mgJump to med 0.4 mg, Intravenous, EVERY 4 HOURS PRN, Starting on Thu03/13/21 at 1532, Until Thu03/20/21 at 1712, Pain, moderate pain (4-6)
May give an additional 0.2 mg in 30 minutes once if pain not reliev ed. For pain unrelieved by PO oxycodone PRN and other as needed pain medications.
Routine Or HYDROmorphone (Dilaudid) (1 mg/mL) injection syringe 0.6 mgJump to med 0.6 mg, Intravenous, EVERY 4 HOURS PRN, Starting on Thu03/13/21 at 1532, Until Thu03/20/21 at 1712, Pain, severe pain (7-10)
May give an additional 0.2 mg in 30 minutes once if pain not relieved. For pain unrelieve d by PO oxycodone PRN and other as needed pain medications.
Routine Group 3: ondansetron (Zofran) tablet 4 mgJump to med 4 mg, Oral, EVERY 8 HOURS PRN, Starting on Thu03/12/21 at 1639, Until Thu03/20/21 at 1712, Nausea, Vomiting
If multiple antiemetics are ordered, use ondansetron first. PO Preferr ed. If patient unable to take PO, may gi ve IV if ordered. May repeat times one in 45 minutes if ineffective.
Recovery (Recovery-Hospital Unit), Routine Or ondansetron (pf) (Zofran) (2 mg/mL) injection 4 mgJump to med 4 mg, Intravenous, EVERY 8 HOURS PRN, St arting on Thu03/12/21 at 1639, Until Thu03/20/21 at 1712, Nausea
May repeat times one in 30 minutes if ineffective. If multiple antiemetics a re ordered, use ondansetron first
R ecovery (Recovery-Hospital Unit) Group 4: oxyCODONE (Roxicodone) tablet 5 mgJump to med 5 mg, Oral, EVERY 4 HOURS PRN, Starting on Thu03/12/21 at 1644, Until Thu03/20/21 at 1712, Pain, moderate pain (4-6), Routine Or oxyCODONE (Roxicodone) tablet 10 mgJump to med 10 mg, Oral, EVERY 4 HOURS PRN, Starting on Thu03/12/21 at 1644, Until Thu03/20/21 at 1712, Pain, severe pain (7-10), Routine documented in this encounter Care Teams Cryptanalyst Relationship Specialty Start Date End Date None PCP - General 03/12/21 04/25/21 None documented as of this encounter
--- OUTSIDE RECORDS SUMMARY | 2022-01-27 16:03 | XMS_ITS | Encounter Summary ---
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 Procedures EMERGENCY IPI Referral ID Status Reason Start Date Expiration Date Visits Requ ested Visits Authorized [id number] 1 1 Encounter Details Date Type Department Care Team Description 03/18/2021 Anesthesia Event Main Operating Room Yonatan Barrientos MD [facility] [place] [address] [facility] Susie Segura MD [facility] [address] [place] [address] [place] [address] Anesthesia Record Procedure Summary Procedure Name Responsible Anesthesia Start Anesthesia Stop Anesthesiologist Time Time DEE DEE VASQUEZ AND Keiry Maynard MD 03/18/21 1039 03/18/21 1156 SUBCU, LOWER EXTREMITY (WRVU 1.01) (Right: Leg Lower) Events Date Time Event Comment 03/18/2021 1030 1039 AN Verify 1039 Start 1039 An Start Data 1046 An Induction 1048 An Intubation 1049 Anesthesia Ready 1147 Extubation/LMA Out 1147 an stop data 1156 Recovery or ICU Handoff Patient care was transferred to the destination unit staff after review of the patient's medica l history, current anesthetic/surgi emilee status and plan, according to the Provider Handoff Checklist. 1156 Stop Name Total fentaNYL 50 mcg IV Lidocaine 100 mg Propofol 200 mg PHENYLephrine 80 mcg Ondansetron 4 mg ceFAZolin 2 g Lactated Ringers 300 mL Agents Name O2 Air N2O Sevoflurane (et) Blood No blood administrations on file. Lines, Drains, and Airways Type Details Placement Removal Incision 03/12/21; 1226; Right; 03/12/21 1226 by neck; non-laparascopic Mary Dorman RN puncture Incision 03/12/21; 1529; Right, 03/12/21 1529 by lower, medial; leg Mary Dorman RN Incision 03/12/21; 1529; Right, 03/12/21 1529 by lower, lateral; leg Mary Dorman RN Incision 03/15/21; 1100; Left, 03/15/21 1100 by medial; thigh; Lauren Nielsen RN non-laparascopic puncture; Venogram w/ MD Rodríguez and MD Guthrie Incision 03/15/21; 1210; Right; 03/15/21 1210 by neck; non-laparascopic Lauren Nielsen RN puncture; IVC filter removal PIV 03/12/21; median cubital 03/12/21 0000 by 1211 by vein (antecubital Varun Vilchis Wilkins, Diane V, BIOLOGY LABORATORY ASSISTANT fossa), right; RN [id number] catheter system; Anatomical Landmarks; 18 gauge; from OSH; distraction; 03/20/21; 1211 PIV 03/12/21; 1150; cephalic 03/12/21 1150 by 1211 by vein (lateral side of Nilda Tineo CRNA Wilkin s, Diane V, BIOLOGY LABORATORY ASSISTANT arm), left; cfvq-fdi-ybtleu catheter system; Anatomical Landmarks; 14 gauge; 03/20/21; 1211 Incision 03/12/21; 1226; Right; 03/12/21 1226 by 05/03/21 1033 by groin; LDA not present Celia Viera, RN Lauren James, RN upon assessment; 05/03/21; 1033 Drain/Device Site 03/12/21; 1550; Right; 03/12/21 1550 by 1136 by anterior; thigh; Mary Dorman RN Hendee, Dan ielle L, collapsible closed RN device; ; Sterile prep and drape; 19 Fr Kenton drain; 03/18/21; 1136 NPWT 03/14/21; 0859; Right, 03/14/21 0859 by 03/18/21 1113 by lower, lateral; leg; Mary Dorman RN Hendee, Danielle L, 03/18/21; 1113 RN Supraglottic Mask Ventilation: Not 03/18/21 1048 by 03/18/21 1147 by Attempted (0); LMA Type: Susie Segura MD Ja ckson, Sarah F, MD iGe; LMA Size: 4 documented in this encounter Social History Tobacco Use Types Packs/Day Years Used Date Smoking Tobacco: Former Smokeless Tobacco: Never Alcohol Use Standard Drinks/Week Comments Not Currently 0 (1 standard drink = 0.6 oz pure alcoho l) about once a month Sex Assigned at Date Recorded Not on file documented as of this encounter OR Notes Anesthesia Postprocedure Evaluation - Susie Segura MD - 03/18/2021 11:57 AM EST Department of Anesthesiology Post-procedure Note Patient: Zander Waldron Procedure Summary Date: 03/18/21 Room / Location: [facility] OR [address] [place] [address] MAIN OR Anesthesia Start: 1039 Anesthesia Stop: 1156 Procedure: DEBRIDEMENT SKIN AND SUBCU, LOWER EXTREMITY (WRVU 1.01) (Right Leg Lower) Diagnosis: (right leg fasciotomy site) Surgeons: Lukasz Patterson MD Responsible Provider: Keiry Maynard MD Anesthesia Type: general ASA Status: 3 All Anesthesia Providers: Anesthesiologist: Keiry Maynard MD Process Artist: Susie Segura MD Vitals Value Taken Time BP 122/79 03/18/21 1150 Temp Pulse 85 03/18/21 1156 Resp 26 03/18/21 1156 SpO2 100 % 03/18/21 1156 Pain Level Vitals shown include unvalidated device data. Patient Location: PACU/[facility] Level of Consciousness: Awake and Alert Pain Management: Satisfactory Analgesia PONV: None Cardiovascular Status: At Baseline Respiratory Status: At Baseline Postoperative Fluid Status: Intravascular EUvolemia Possible Anesthetic Complications: NONE apparent at time of evaluation Final Primary Anesthesia Type: General (The anesthetic type performed was the same as planned.) Comments: Doing well at handoff to PACU. Awake, alert, no concerns at this time. Anesthesia Preprocedure Evaluation - Keiry Maynard MD - 03/18/2021 10:04 AM EST Pre-Anesthesia Evaluation for: Zander Waldron a 60 y.o. male. Procedure(s): DEBRIDEMENT SKIN AND SUBCU, LOWER EXTREMITY (WRVU 1.01) Patient Active Problem List Diagnosis ??? IVC (inferior vena cava obstruction) ??? Diverticular disease of colon ??? Acquired hypothyroidism ??? Acute bilateral deep vein thrombosis (DVT) of iliac veins of lower extremities ??? DVT, lower extremity, proximal, acute, bilateral ??? Gastroesophageal reflux disease without esophagitis ??? IVC thrombosis ??? TMJ dysfunction History reviewed. No pertinent past medical history. Past Surgical History: Procedure Laterality Date ??? PRO COLONOSCOPY, BIOPSY N/A 05/07/2020 COLONOSCOPY FLEXIBLE, WITH BX (WRVU 3.66) performed by Rc Carrasquillo MD at [facility] ENDOSCOPY ??? PRO COLONOSCOPY, DIAGNOSTIC N/A 03/11/2021 COLONOSCOPY, DIAGNOSTIC performed by Titi Stroud MD at [facility] ENDOSCOPY ??? PRO COLONOSCOPY, FLEX, W/DIR SUBMUC INJECT N/A 05/07/2020 COLONOSCOPY WITH DIRECTED SUBMUCOSAL INJ (WRVU 3.66) performed by Rc Carrasquillo MD at [facility] ENDOSCOPY ??? PRO COLONOSCOPY, REMV LESN, SNARE N/A 12/11/2016 COLONOSCOPY, POLYPECTOMY, REMOVAL LESION BY SNARE (WRVU 4.67) performed by Jewels Wilkerson MD at [facility] ENDOSCOPY ??? PRO COLONOSCOPY, REMV LESN, SNARE N/A 05/07/2020 COLONOSCOPY, POLYPECTOMY, REMOVAL LESION BY SNARE (WRVU 4.67) performed by Rc Carrasquillo MD at [facility] ENDOSCOPY ? ? PRO DEBRIDEMENT MUSCLE AND FASCIA 20 SQ CM/< Right 03/14/2021 DEBRIDEMENT SKIN, SUBCU, MUSCLE, LOWER EXTREMITY (WRVU 2.7) performed by Deonte De Los Santos MD at [facility] MAIN OR ??? PRO DECOMPRESS ANT/LAT+POST LEG CMPART Right 03/12/2021 FASCIOTOMY, LOWER LEG, ALL COMPARTMENTS -TIFFANY (WRVU 7.82) [facility] ??? PRO HEMORRHOIDECTOMY, INT/EXT, COMPLX N/A 10/28/2016 HEMORRHOIDECTOMY, INTERNAL & EXTERNAL, COMPLEX (WRVU 6.73) performed by Matt Sullivan MDat [facility] OSC ? ? PRO INSERT VENA CAVA FILTER W/WO VASCULAR ACCESS AND RAD S&I N/A 03/12/2021 INSERT INTRAVASC VENA CAVA FILTER, ENDOVASCR APPR, WHEN PERFORMED (WRVU 4.71) performed by Steven Rodríguez MD at [facility] MAIN OR ??? PRO REMV VEIN CLOT CAVA-ILIAC, LEG INCIS Right 03/12/2021 THROMBECTOMY, VENA CAVA, ILIAC, FEMOROPOPLITEAL VEIN BY LEG INCISION (WRVU 13.37) performed by Steven Rodríguez MD at [facility] MAIN OR ??? PRO UPPER GI ENDOSCOPY, BIOPSY N/A 03/11/2021 EGD WITH BIOPSY (WRVU 2.49) performed by Titi Stroud MD at [facility] ENDOSCOPY ??? PRO UPPER GI ENDOSCOPY, DIAGNOSTIC N/A 05/07/2020 EGD, UPPER GI ENDOSCOPY performed by Rc Carrasquillo MD at [facility] ENDOSCOPY Social History Tobacco Use ??? Smoking status: Former Smoker ??? Smokeless tobacco: Never Used Substance Use Topics ??? Alcohol use: Not Currently Comment: about once a month Social History Substance and Sexual Activity Drug Use No No Known Allergies Medications: MAR and/or home medications have been reviewed. Physical Exam: Preprocedure Vitals Current as of 03/18/21 1004 BP: 108/78 Pulse: Resp: 18 SpO2: 95 Temp: 36.9 ??C (98.4 ??F) Height: 174 cm (5' 8.5) (03/13/21) Weight: 95.3 kg (210 lb) (03/13/21) BMI: 31.46 IBW: 69.6 kg (153 lb 5.6 oz) Last edited 03/18/21 0739 by WM Airway Assessment: Mallampati: I TM distance: >3 FB Neck ROM: full Cardiovascular Assessment: system normal Pulmonary Assessment: unlabored breathing Dental Assessment: Comment: No loose dentition Misc Assessment: IV access: Peripheral line Last Filed Perioperative Cognitive Screening None Anesthesia Plan: ASA 3 general, with a(n) intravenous induction 60 y.o. male s/p IVC and R iliac vein thrombectomy scheduled for RLE fasciotomy washout, possible closure, possible vac change. ?? 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 Tolerated previous fasciotomy washout with LMA (igel 4) ?? TTE: LVEF 60-70%, no WMA, PASP 26mmHg, no valve abnormalities, moderate aortic root dilation ?? Allergies reviewed Labs reviewed ?? NPO Status: --- Appropriate ?? Anesthetic Plan: GA w/ ETT/LMA Standard ASA monitoring PIV access Region - Other Informed Consent: Anesthetic plan and risks discussed with patient. Plan discussed with resident. Anesthesia Screening Susie Segura MD 03/18/2021 documented in this encounter Plan of Treatment Not on filedocumented as of this encounter Visit Diagnoses Not on filedocumented in this encounter Administered Medications Inactive Administered Medications - up to 3 most recent administrations Medication Order MAR Action Action Date Dose Rate Site ceFAZolin (Ancef) 1 g in dextrose Given 03/18/2021 10:49 AM EST 2 g 5% 50 mL infusion Intravenous, PRN, Starting on Thu03/18/21 at 1049, Until Thu03/18/21 at 1156, Administer over 30 Minutes, Anesthesia Intra-op fentaNYL (pf) (50 mcg/mL) multi-dose Given 03/18/2021 11:[address] 50 mcg injection Intravenous, PRN, Starting on Thu03/18/21 at 1101, Until Thu03/18/21 at 1156, Anesthesia Intra-op, Routine lactated ringers infusion New Bag 03/18/2021 10:39 AM EST Intravenous, CONTINUOUS PRN, Starting on Thu03/18/21 at 1039, Until Thu03/18/21 at 1156, Anesthesia Intra-op lidocaine (pf) (Xylocaine) (20 mg/mL) 2% Given 03/18/2021 10:46 AM EST 100 mg injection syringe Intravenous, PRN, Starting on Thu03/18/21 at 1046, Until Thu03/18/21 at 1156, Anesthesia Intra-op, Routine ondansetron (pf) (Zofran) (2 mg/mL) inje ction Given 03/18/2021 11:16 AM EST 4 mg Intravenous, PRN, Starting on Thu03/18/21 at 1116, Until Thu03/18/21 at 1156, Anesthesia Intra-op, Routine PHENYLephrine in NS (PF) (AMY-SYNEPHRINE) Given 03/18/2021 10:51 AM EST 80 mcg 0.8 mg/10 mL (80 mcg/mL) multi-dose injection Syrg Intravenous, PRN, Starting on Thu03/18/21 at 1051, Until Thu03/18/21 at 1156, Anesthesia Intra-op, Routine propofoL (Diprivan) 10 mg/mL bolus injection Given 10:46 AM EST 200 mg (Anesthesia) Intravenous, PRN, Starting on Thu03/18/21 at 1046, Until Thu03/18/21 at 1156, Anesthesia Intra-op documented in this encounter Care Teams Floor Specialist Relationship Specialty Start Date End Date None PCP - General 03/12/21 04/25/21 None documented as of this encounter
--- OUTSIDE RECORDS SUMMARY | 2022-01-27 16:04 | XMS_ITS | Encounter Summary ---
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 Procedures EMERGENCY IPI Referral ID Status Reason Start Date Expiration Date Visits Requ ested Visits Authorized [id number] 1 1 Encounter Details Date Type Department Care Team Description 03/18/2021 Surgery Main Operating Room Lukasz Patterson DE BRIDEMENT SKIN AND Phuong Patel MD SUBCU, LOWER EXTREMITY Hospital [facility] (WRVU 1.01) [facility] [address] [place] [address] [place] [address] [phone] (Wo rk) Social History Tobacco Use Types Packs/Day Years Used Date Smoking Tobacco: Former Smokeless Tobacco: Never Alcohol Use Standard Drinks/Week Comments Not Currently 0 (1 standard drink = 0.6 oz pure alcoho l) about once a month Sex Assigned at Date Recorded Not on file documented as of this encounter Last Filed Vital Signs Vital Sign Reading Time Taken Comments Blood Pressure 120/74 03/18/2021 12:00 PM EST Pulse 83 03/18/2021 12:00 PM EST Temperature 36.7 ??C (98.1 ??F) 03/18/2021 11:50 AM EST Respiratory Rate 16 03/18/2021 12:00 PM EST Oxygen Saturation 95% 03/18/2021 12:00 PM EST Inhaled Oxygen Concentration - - [...] Left common iliac vein stent placement (Express [id number], post-dilatedto 12mm); Left common and external iliac vein stent placement (Wallstent [id number]); US guided right internal jugular vein access; [...] DVT on 02/21 and was discharged on Eliqu. He took it as prescribed howeverstopped it [...] for infrarenal IVC stenosis - predilated with England 14 mm balloon. IVC and R CIV stented with Venous WallStent 20 x 80 mm. Extended distally into R EIVA with Wallstent 20 x 80 mm. Postdilated with England 16 mm balloon. Completion angiogram with brisk [...] Left common iliac vein stent placement (Express [id number], post-dilated to 12mm), Left common and external iliac vein stent placement (Wallstent [id number]). IVC venogram revealed suprarenal IVC filter in place without clot burden within filter. IVC filter removal. Patient was re- admitted for post-operative monitoring. On 03/16/21, patient was transferred to the floor. On 03/18/20, patient underwent removal af L medial thigh LIZETTE drain and lateral fasciotomy incision closure. In surgery, wound vac with black sponge removed revealing healthy muscle and granulation tissue. Bronson and rubber band removed. Lateral fasciotomy incision [...] PM Twan Serna MD Vascular Surgery at [facility] Arrive at: [facility] Supervisor Area [phone] 04/26/2021 8:00 AM Avila Bai [place] Vascular Lab at [facility] Arrive at: [facility] Supervisor Area [phone] 04/26/2021 10:15 AM Marlene Rodríguez MD Vascular Surgery at [facility] Arrive at: [facility] Supervisor Area [phone] 06/07/2021 10:00 AM Natacha Velásquez MD Hematology and Oncology at [facility] Arrive at: [facility] Super[facility] Area [phone] 06/28/2021 11:00 AM Natacha Velásquez MD Hematology and Oncology at [facility] Arrive at: [facility] Supervisor Area [phone] Future Orders Complete By Expires Duplex Study for DVT, Bilat legs [VAS40 Custom] 04/19/2021 10/19/2021 Process Instructions: There is no in-house vascular metallurgical laboratory assistant available on weeknights (5pm-8am), weekends, or holidays. IF THIS IS A REQUEST FOR AN EMERGENT STUDY DURING THOSE HOURS, please have the senior provider responsible for the patient page the Vascular Surgery Fellow/Senior Resident interventional radiology technologist to discuss options. Scheduling Instructions: Questions: Indication for study/signs & symptoms: s/p thrombectomy and stenting of IVC, R CIV and R EIV Question to be answered: Patency? New/worsening DVT? Preferred location?: [facility] Clin[facility] Duplex Study IVC/Iliac, Comp [VAS55 Custom] 04/19/2021 10/19/2021 Process Instructions: There is no in-house vascular metallurgical laboratory assistant available on weeknights (5pm-8am), weekends, or holidays. IF THIS IS A REQUEST FOR AN EMERGENT STUDY DURING THOSE HOURS, please have the senior provider responsible for the patient page the Vascular Surgery Fellow/Senior Resident interventional radiology technologist to discuss options. Scheduling Instructions: Questions: Indication for study/signs & symptoms: s/p thrombectomy and stenting of IVC, R CIV and R EIV Question to be answered: Patency? New/worsening DVT? Preferred location?: [facility] Referral to Gastroenterology [REF25 Custom] As directed Process Instructions: If requesting a colonoscopy please use [id number] AMB REFERRAL TO COLONOSCOPY PROCEDURE. This referral [...] is greater than 50, please refer to [facility] (or a division other than [facility]). Scheduling Instructions: Questions: Are you seeking Vascular Access?: No My question or request is: Inguinal Hernias Referral to Home Health - at DISCHARGE [[id number] CPT(R)] As directed Process Instructions: Scheduling Instructions: Comments: DOCUMENTATION FOR VNA SERVICES (INCLUDING THOSE PATIENTS WITH MEDICARE COVERAGE REQUIRING HOME VNA SERVICES AND/OR HOSPICE SERVICES) PATIENT'S LOCATION: Amilcar Pate [address] [facility] [address] (home) Cell: Telephone Information: Manager Furniture's Name: Jun In discussion with the attending physician, it is certified that this patient is under their care and that they, or a Nurse Practitioner,Clinical Nurse specialist or Physician Graphic Pre Press Trades Worker who is working directly with them, had a face to face encounter that meets the physician face to face encounter requirements with this patient on 03/20/2021 (MD please enter DC date here) The encounter [...] for managing ADL's. HOME HEALTH CARE AGENCY: [facility] & [facility] [employer] PHONE: [phone] FAX: [phone] Start of care: Within 24 to 48 [...] noted Questions: Agency name and contact information: [facility] Patient location post discharge: home What [...] management of your inguinal hernia. Please call [phone] and ask to speak with the general surgery team if you do not hear regarding this appointment in 2 weeks from discharge. Additionally, you had lung findings that require follow-up CT imaging in 6-12 weeks by your primary care provider. A referral was placed to primary care at [facility] given your transition between providers.You should call [phone] if you do not hear regarding this referral. If you establish care with a different primary care provider in the interim, they may follow-up on your CT findings. For any problems or questions please call [phone] For issues on weeknights after 5pm and weekends please call [phone] and ask for the Vascular Fellow interventional radiology technologist. TARAN Pineda 03/20/2021 documented in this encounter Discharge Instructions Discharge InstructionsLauren Nielsen RN - 03/15/2021 11:14 AM EST [facility] Vascular and Interventional Radiology Discharge Instructions For [...] is during regular office hours, please call [phone]. If it is after regular office hours, oron weekends or holidays, please call [phone] and ask to speak to the Intramural Director on callfor Interventional Radiology. You have received [...] management of your inguinal hernia. Please call [phone] and ask to speak with the general surgery team if you do not hear regarding this appointment in 2 weeks from discharge. Additionally, you had lung findings that require follow-up CT imaging in 6-12 weeks by your primary care provider. A referral was placed to primary care at [facility] given your transition between providers.You should call [phone] if you do not hear regarding this referral. If you establish care with a different primary care provider in the interim, they may follow-up on your CT findings. For any problems or questions please call [phone] For issues on weeknights after 5pm and weekends please call [phone] and ask for the Vascular Fellow interventional radiology technologist. documented in this encounter Medications at Time [...] VNA called. See Omero Bullard RN Devi Bai PT - 03/20/2021 10:29 AM EST 03/20/21 1025 Evaluation & Treatment Document Type contact Total Minutes, Physical Therapy 0 Comment, Session Not Performed Met with pt, issued exercise handouts, pt had already ambulated a full lap on the unit. Plan for d/c today with home services. Pt feeling much more confident about discharge. Hector Rosado - 03/20/2021 10:11 AM EST [employer] Laboratory Assistant Encounter Note Patient Name: Amilcar Pate : [id number] MR#: [id number] Admit Date: 03/12/2021 4:45 AM Hospital Day [...] on 03/12/2021 with PMH hypothyroidism??and??GERD??who presented??to the [facility] ED in transfer from [facility] with a mottled, cool RLE and was transferred to [facility] on a heparin gtt. The patient previously had a COVID infection on 02/26 and developedbilateral iliofemoral DVT on 02/21 for which he was started on Eliquis. His Eliquis was held for an EGD with biopsy on 03/11 at [facility]. On arrival to [facility], he was noted to have a five-hour [...] 3.66) performed by Rc Carrasquillo MD at [facility] ??? PRO COLONOSCOPY, DIAGNOSTIC N/A 03/11/2021 COLONOSCOPY, DIAGNOSTIC performed by Titi Stroud MD at [facility] ??? PRO COLONOSCOPY, FLEX, W/DIR SUBMUC INJECT N/A 05/07/2020 COLONOSCOPY WITH DIRECTED SUBMUCOSAL INJ (WRVU 3.66) performed by Rc Carrasquillo MD at [facility] ??? PRO COLONOSCOPY, REMV LESN, SNARE N/A 12/11/2016 COLONOSCOPY, POLYPECTOMY, REMOVAL LESION BY SNARE (WRVU 4.67) performed by Jewels Wilkerson MD at [facility] ??? PRO COLONOSCOPY, REMV LESN, SNARE N/A 05/07/2020 COLONOSCOPY, POLYPECTOMY, REMOVAL LESION BY SNARE (WRVU 4.67) performed by Rc Carrasquillo MD at [facility] ? ? PRO DEBRIDEMENT MUSCLE AND FASCIA 20 SQ CM/< Right 03/14/2021 DEBRIDEMENT SKIN, SUBCU, MUSCLE, LOWER EXTREMITY (WRVU 2.7) performed by Deonte De Los Santos MD at [facility] ? ? PRO DEBRIDEMENT SUBCUTANEOUS TISSUE 20 SQCM/< Right 03/18/2021 DEBRIDEMENT SKIN AND SUBCU, LOWER EXTREMITY (WRVU 1.01) performed by Lukasz Patterson MD at [facility] ??? PRO DECOMPRESS ANT/LAT+POST LEG CMPART Right 03/12/2021 FASCIOTOMY, LOWER LEG, ALL COMPARTMENTS -TIFFANY (WRVU 7.82) [facility] ??? PRO HEMORRHOIDECTOMY, INT/EXT, COMPLX N/A 10/28/2016 HEMORRHOIDECTOMY, INTERNAL & EXTERNAL, COMPLEX (WRVU 6.73) performed by Matt Sullivan MDat [facility] ? ? PRO INSERT VENA CAVA FILTER W/WO VASCULAR ACCESS AND RAD S&I N/A 03/12/2021 INSERT INTRAVASC VENA CAVA FILTER, ENDOVASCR APPR, WHEN PERFORMED (WRVU 4.71) performed by Marlene Rodríguez MD at [facility] ??? PRO REMV VEIN CLOT CAVA-ILIAC, LEG INCIS Right 03/12/2021 THROMBECTOMY, VENA CAVA, ILIAC, FEMOROPOPLITEAL VEIN BY LEG INCISION (WRVU 13.37) performed by Marlene Rodríguez MD at [facility] ??? PRO UPPER GI ENDOSCOPY, BIOPSY N/A 03/11/2021 EGD WITH BIOPSY (WRVU 2.49) performed by Titi Stroud MD at [facility] ??? PRO UPPER GI ENDOSCOPY, DIAGNOSTIC N/A 05/07/2020 EGD, UPPER GI ENDOSCOPY performed by Rc Carrasquillo MD at [facility] Social History: Lives with His [...] Therapy: (P) 58 DEVI KOROMA, PT Pager: [phone] Physical Therapy Inpatient Rehabilitation Department Hector Elkins - 03/19/2021 2:49 PM EST [employer] Laboratory Assistant Encounter Note Patient Name: Amilcar Pate : [id number] MR#: [id number] Admit Date: 03/12/2021 4:45 AM Hospital Day [...] spiritual support and listening and encouraging presence. [employer] Laboratory Assistant services accepted. Conversation to build trusting relationship. Provided pastoral presence. Provided pastoral presence. Provided spiritual support. Follow-up: yes Time in Direct Care:30 Mins Hector Elkins 03/19/2021 Heather Stroud, OT - 03/19/2021 11:22 AM EST Occupational Therapy Evaluation Patient profile: Amilcar Pate is a 60 y.o. male admitted on 03/12/2021 with PMH hypothyroidism and GERD who presented to the [facility] ED in transfer from [facility] with a mottled, cool RLE and was transferred to [facility] on a heparin gtt. The patient previously had a COVID infection on 02/26 and developed bilateral iliofemoral DVT on 02/21 for which he was started on Eliquis. His Eliquis was held for an EGD with biopsy on 03/11 at [facility]. On arrival to [facility], he was noted to have a five-hour [...] 3.66) performed by Rc Carrasquillo MD at [facility] ??? PRO COLONOSCOPY, DIAGNOSTIC N/A 03/11/2021 COLONOSCOPY, DIAGNOSTIC performed by Titi Stroud MD at [facility] ??? PRO COLONOSCOPY, FLEX, W/DIR SUBMUC INJECT N/A 05/07/2020 COLONOSCOPY WITH DIRECTED SUBMUCOSAL INJ (WRVU 3.66) performed by Rc Carrasquillo MD at [facility] ??? PRO COLONOSCOPY, REMV LESN, SNARE N/A 12/11/2016 COLONOSCOPY, POLYPECTOMY, REMOVAL LESION BY SNARE (WRVU 4.67) performed by Jewels Wilkerson MD at [facility] ??? PRO COLONOSCOPY, REMV LESN, SNARE N/A 05/07/2020 COLONOSCOPY, POLYPECTOMY, REMOVAL LESION BY SNARE (WRVU 4.67) performed by Rc Carrasquillo MD at [facility] ? ? PRO DEBRIDEMENT MUSCLE AND FASCIA 20 SQ CM/< Right 03/14/2021 DEBRIDEMENT SKIN, SUBCU, MUSCLE, LOWER EXTREMITY (WRVU 2.7) performed by Deonte De Los Santos MD at [facility] ? ? PRO DEBRIDEMENT SUBCUTANEOUS TISSUE 20 SQCM/< Right 03/18/2021 DEBRIDEMENT SKIN AND SUBCU, LOWER EXTREMITY (WRVU 1.01) performed by Lukasz Patterson MD at [facility] ??? PRO DECOMPRESS ANT/LAT+POST LEG CMPART Right 03/12/2021 FASCIOTOMY, LOWER LEG, ALL COMPARTMENTS -TIFFANY (WRVU 7.82) [facility] ??? PRO HEMORRHOIDECTOMY, INT/EXT, COMPLX N/A 10/28/2016 HEMORRHOIDECTOMY, INTERNAL & EXTERNAL, COMPLEX (WRVU 6.73) performed by Matt Sullivan MDat [facility] ? ? PRO INSERT VENA CAVA FILTER W/WO VASCULAR ACCESS AND RAD S&I N/A 03/12/2021 INSERT INTRAVASC VENA CAVA FILTER, ENDOVASCR APPR, WHEN PERFORMED (WRVU 4.71) performed by Marlene Rodríguez MD at [facility] ??? PRO REMV VEIN CLOT CAVA-ILIAC, LEG INCIS Right 03/12/2021 THROMBECTOMY, VENA CAVA, ILIAC, FEMOROPOPLITEAL VEIN BY LEG INCISION (WRVU 13.37) performed by Marlene Rodríguez MD at [facility] ??? PRO UPPER GI ENDOSCOPY, BIOPSY N/A 03/11/2021 EGD WITH BIOPSY (WRVU 2.49) performed by Titi Stroud MD at [facility] ??? PRO UPPER GI ENDOSCOPY, DIAGNOSTIC N/A 05/07/2020 EGD, UPPER GI ENDOSCOPY performed by Rc Carrasquillo MD at [facility] Social History: Patient lives with [...] Discharge planning. Total Minutes, Occupational Therapy: 35 2016 OT Evaluation Code Rationale: ?? Diagnosis & [...] instrument andmeasurable assessment of functional outcome. Pager: [phone] Heather Stroud OT 03/19/2021 Occupational Therapy Rehabilitation [...] 390* 333 Last 3 Lytes Recent Labs 03/19/21 0528 03/18/21 0543 03/17/21 0539 NA 139 136 [...] g Oral Daily Cristina Lozano RN - 03/19/2021 5:07 AM EST OUTCOME [...] DP/PT pulse signals on doppler AP Amilcar L Pate is a 60 y.o. male status [...] g Oral Daily Cristina Wright RN - 03/18/2021 6:19 AM EST OUTCOME [...] Hector Rosado - 03/17/2021 1:28 PM EST [employer] Laboratory Assistant Encounter Note Patient Name: Amilcar Pate : [id number] MR#: [id number] Admit Date: 03/12/2021 4:45 AM Hospital Day 5 days Narrative:Visited to introduce and assess acceptance of [employer] Laboratory Assistant services. Patient was awake, alert, oriented and [...] spiritual support and listening and encouraging presence. [employer] Laboratory Assistant services accepted. Conversation to build trusting relationship. [...] obstruction Relevant PMH: PMH hypothyroidism and GERD [facility] ED in transfer from [facility] on 03/12 early AM. The patient previously had a COVID infection on 02/26 and developed bilateral iliofemoral DVT on 02/21 for which he was started on Eliquis. His Eliquis was held for an EGD with biopsy on 03/11 at [facility]. This morning, he presented to [facility] with a mottled, cool RLE and was transferred to [facility] on a heparin gtt. On arrival to [facility], he was noted to have a five-hour [...] with updates Consults: PT [] OT [] HARD METALS ENGRAVER HAND [] Psych [] Action List Q4 VS [...] adjusted, non skid socks, RN assist Delilah Sanchez MD - 03/16/2021 8:08 AM EST Vascular [...] 3 wbc, hgb, hct plt Recent Labs 03/16/21 0309 03/15/21 0041 03/14/21 0035 WBC 9.3 9.4 11.7* HGB 8.6* 8.9* 8.7* HCT 26.0* 27.8* 26.8* PLATELET 292 359* 311 Last 3 Lytes Recent Labs 03/16/21 0309 03/15/21 0041 03/14/21 0035 NA 137 135 135 [...] to procedure. Will defer PT eval today. JANETH Bridges Physical Therapy Inpatient Rehab Estuardo Urrutia PT Pager [phone] John Baron MD - 03/15/2021 9:09 AM [...] Norma Mcmillan APRN Vascular Surgery Fellow pager [phone] 03/15/2021 ASA: 2 Mal: 3 Cr Lab [...] OT - 03/15/2021 9:05 AM EST 03/15/21 09 Evaluation & Treatment Document Type contact Total Minutes, Occupational Therapy 15 Comment, Session Not Performed met w pt to initiate OT evaluation; gathered social history; evaluation interrupted by transport to go to IR; will follow up w OT eval as available/appropriate; social history includes: pt lives in [place], [place] in a 2 and a half story home [address]; bedroom and bathroom on floor w tub shower; baseline independent and worked; lives w pt and volunteers Chani Longo RN - 03/14/2021 4:57 PM EST Illness Severity [x] Stable [] Watcher [] Unstable Patient Summary Reason for admission: IVC obstruction Relevant PMH: PMH hypothyroidism and GERD [facility] ED in transfer from [facility] on 03/12 early AM. The patient previously had a COVID infection on 02/26 and developed bilateral iliofemoral DVT on 02/21 for which he was started on Eliquis. His Eliquis was held for an EGD with biopsy on 03/11 at [facility]. This morning, he presented to [facility] with a mottled, cool RLE and was transferred to [facility] on a heparin gtt. On arrival to [facility], he was noted to have a five-hour [...] venogram. Remains on heparin gtt, next UFH [id number]. WCM Neuro: WDL ex. Headache Cardiac:WDL NSR [...] with updates Consults: PT [] OT [] HARD METALS ENGRAVER HAND [] Psych [] Action List Q2 virals [...] glasses on, RN assist, nonskid socks Lauren Paez RN - 03/14/2021 4:44 PM EST [facility] N[facility] DATABASE Name: AMILCAR PATE Date of : 1960 AGE: 60 y.o. Address: [address] [place] [address] (home) Mobile: Telephone Information: Referring Provider: Rosemary [...] 3.66) performed by Rc Carrasquillo MD at [facility] ??? PRO COLONOSCOPY, DIAGNOSTIC N/A 03/11/2021 COLONOSCOPY, DIAGNOSTIC performed by Titi Stroud MD at [facility] ??? PRO COLONOSCOPY, FLEX, W/DIR SUBMUC INJECT N/A 05/07/2020 COLONOSCOPY WITH DIRECTED SUBMUCOSAL INJ (WRVU 3.66) performed by Rc Carrasquillo MD at [facility] ??? PRO COLONOSCOPY, REMV LESN, SNARE N/A 12/11/2016 COLONOSCOPY, POLYPECTOMY, REMOVAL LESION BY SNARE (WRVU 4.67) performed by Jewels Wilkerson MD at [facility] ??? PRO COLONOSCOPY, REMV LESN, SNARE N/A 05/07/2020 COLONOSCOPY, POLYPECTOMY, REMOVAL LESION BY SNARE (WRVU 4.67) performed by Rc Carrasquillo MD at [facility] ??? PRO DECOMPRESS ANT/LAT+POST LEG CMPART Right 03/12/2021 FASCIOTOMY, LOWER LEG, ALL COMPARTMENTS -TIFFANY (WRVU 7.82) performed [facility] ??? PRO HEMORRHOIDECTOMY, INT/EXT, COMPLX N/A 10/28/2016 HEMORRHOIDECTOMY, INTERNAL & EXTERNAL, COMPLEX (WRVU 6.73) performed by Matt Sullivan MDat [facility] ? ? PRO INSERT VENA CAVA FILTER W/WO VASCULAR ACCESS AND RAD S&I N/A 03/12/2021 INSERT INTRAVASC VENA CAVA FILTER, ENDOVASCR APPR, WHEN PERFORMED (WRVU 4.71) performed by Marlene Rodríguez MD at [facility] ??? PRO REMV VEIN CLOT CAVA-ILIAC, LEG INCIS Right 03/12/2021 THROMBECTOMY, VENA CAVA, ILIAC, FEMOROPOPLITEAL VEIN BY LEG INCISION (WRVU 13.37) performed by Marlene Rodríguez MD at [facility] ??? PRO UPPER GI ENDOSCOPY, BIOPSY N/A 03/11/2021 EGD WITH BIOPSY (WRVU 2.49) performed by Titi Stroud MD at [facility] ??? PRO UPPER GI ENDOSCOPY, DIAGNOSTIC N/A 05/07/2020 EGD, UPPER GI ENDOSCOPY performed by Rc Carrasquillo MD at [facility] Date/Procedure Meds Given/Comments 03/15/21 LLE [...] Delilah Sanchez MD Vascular Surgery Fellow pager [phone] 03/14/2021 Active Hospital Problems Diagnosis ??? IVC [...] of increasing of pain and tenderness in WIN, notified. PLAN MOVING FORWARD: Discharge planning Q2 [...] team Sachi Ford Vascular Surgery Fellow pager [phone] 03/13/2021 Active Hospital Problems Diagnosis ??? IVC [...] RLE fasciotomy sites NEURO: grossly intact A&P: Amilcar Pate is a 60 y.o. male [...] and Physical Patient Name: Amilcar Pate MR: [id number] : [id number] CC: 60 y.o. Male HISTORY OF PRESENT ILLNESS: Amilcar Pate is a 60 y.o. male with PMH hypothyroidism and GERD who presented to the [facility] ED in transfer from [facility] on 03/12 early AM. The patient previously had a COVID infection on 02/26 and developed bilateral iliofemoral DVT on 02/21 for which he was started on Eliquis. His Eliquis was held for an EGD with biopsy on 03/11 at [facility]. This morning, he presented to [facility] with a mottled, cool RLE andwas transferred to [facility] on a heparin gtt. On arrival to [facility], he was noted to have a five-hour [...] 3.66) performed by Rc Carrasquillo MD at [facility] ??? PRO COLONOSCOPY, DIAGNOSTIC N/A 03/11/2021 COLONOSCOPY, DIAGNOSTIC performed by Titi Stroud MD at [facility] ??? PRO COLONOSCOPY, FLEX, W/DIR SUBMUC INJECT N/A 05/07/2020 COLONOSCOPY WITH DIRECTED SUBMUCOSAL INJ (WRVU 3.66) performed by Rc Carrasquillo MD at [facility] ??? PRO COLONOSCOPY, REMV LESN, SNARE N/A 12/11/2016 COLONOSCOPY, POLYPECTOMY, REMOVAL LESION BY SNARE (WRVU 4.67) performed by Jewels Wilkerson MD at [facility] ??? PRO COLONOSCOPY, REMV LESN, SNARE N/A 05/07/2020 COLONOSCOPY, POLYPECTOMY, REMOVAL LESION BY SNARE (WRVU 4.67) performed by Rc Carrasquillo MD at [facility] ??? PRO HEMORRHOIDECTOMY, INT/EXT, COMPLX N/A 10/28/2016 HEMORRHOIDECTOMY, INTERNAL & EXTERNAL, COMPLEX (WRVU 6.73) performed by Matt Sullivan MDat [facility] ??? PRO UPPER GI ENDOSCOPY, BIOPSY N/A 03/11/2021 EGD WITH BIOPSY (WRVU 2.49) performed by T[facility] Stroud MD [facility] ENDOSCOPY ??? PRO UPPER GI ENDOSCOPY, DIAGNOSTIC N/A 05/07/2020 EGD, UPPER GI ENDOSCOPY performed by Rc Carrasquillo MD at [facility] ENDOSCOPY ALLERGIES: No Known Allergies MEDICATIONS: [...] drain with serosanguinous drainage. LABORATORY: Recent Labs 03/12/21510 WBC 12.7* HGB 10.7* HCT 33.2* PLATELET 523* Recent Labs 03/12/21510 NA 138 K 3.4* CL 105 CO2 19* BUN 17 CREATININE 0.70* GLUCOSE 135 CALCIUM 7.8* Recent Labs 03/12/21510 AST 14 ALT 13 ALKPHOS 80 BILITOT [...] hypothyroidism and GERD who presented to the [facility] ED in transfer from [facility] with five hours of acute RLE pain [...] Charles MD - 03/12/2021 9:37 AM EST [facility] Department of Surgery Inpatient Consult Note Consultation Requested by: Rosemary Wiley MD HPI: We are seeing Amilcar Pate today at the request of Dr. Rosemary Wiley MD for evaluation and advice about RLE [...] 3.66) performed by Rc Carrasquillo MD at [facility] ENDOSCOPY ??? PRO COLONOSCOPY, DIAGNOSTIC N/A 03/11/2021 COLONOSCOPY, DIAGNOSTIC performed by Titi Stroud MD at [facility] ENDOSCOPY ??? PRO COLONOSCOPY, FLEX, W/DIR SUBMUC INJECT N/A 05/07/2020 COLONOSCOPY WITH DIRECTED SUBMUCOSAL INJ (WRVU 3.66) performed by Rc Carrasquillo MD at [facility] ENDOSCOPY ??? PRO COLONOSCOPY, REMV LESN, SNARE N/A 12/11/2016 COLONOSCOPY, POLYPECTOMY, REMOVAL LESION BY SNARE (WRVU 4.67) performed by Jewels Wilkerson MD at [facility] ENDOSCOPY ??? PRO COLONOSCOPY, REMV LESN, SNARE N/A 05/07/2020 COLONOSCOPY, POLYPECTOMY, REMOVAL LESION BY SNARE (WRVU 4.67) performed by Rc Carrasquillo MD at [facility] ENDOSCOPY ??? PRO HEMORRHOIDECTOMY, INT/EXT, COMPLX N/A 10/28/2016 HEMORRHOIDECTOMY, INTERNAL & EXTERNAL, COMPLEX (WRVU 6.73) performed by Matt Sullivan MDat [facility] OSC ??? PRO UPPER GI ENDOSCOPY, BIOPSY N/A 03/11/2021 EGD WITH BIOPSY (WRVU 2.49) performed by Titi Stroud MD at [facility] ENDOSCOPY ??? PRO UPPER GI ENDOSCOPY, DIAGNOSTIC N/A 05/07/2020 EGD, UPPER GI ENDOSCOPY performed by Rc Carrasquillo MD at [facility] ENDOSCOPY HOME MEDICATIONS: Current Facility-Administered Medications [...] any questions regarding this consult, please page [phone] if you have any further questions. [x] [...] Charles MD - 03/12/2021 5:27 AM EST [facility] Department of Surgery Inpatient Consult Note Consultation [...] 3.66) performed by Rc Carrasquillo MD at [facility] ENDOSCOPY ??? PRO COLONOSCOPY, DIAGNOSTIC N/A 03/11/2021 COLONOSCOPY, DIAGNOSTIC performed by Titi Stroud MD at [facility] ENDOSCOPY ??? PRO COLONOSCOPY, FLEX, W/DIR SUBMUC INJECT N/A 05/07/2020 COLONOSCOPY WITH DIRECTED SUBMUCOSAL INJ (WRVU 3.66) performed by Rc Carrasquillo MD at [facility] ENDOSCOPY ??? PRO COLONOSCOPY, REMV LESN, SNARE N/A 12/11/2016 COLONOSCOPY, POLYPECTOMY, REMOVAL LESION BY SNARE (WRVU 4.67) performed by Jewels Wilkerson MD at [facility] ENDOSCOPY ??? PRO COLONOSCOPY, REMV LESN, SNARE N/A 05/07/2020 COLONOSCOPY, POLYPECTOMY, REMOVAL LESION BY SNARE (WRVU 4.67) performed by Rc Carrasquillo MD at [facility] ENDOSCOPY ??? PRO HEMORRHOIDECTOMY, INT/EXT, COMPLX N/A 10/28/2016 HEMORRHOIDECTOMY, INTERNAL & EXTERNAL, COMPLEX (WRVU 6.73) performed by Matt Sullivan MDat [facility] OSC ??? PRO UPPER GI ENDOSCOPY, BIOPSY N/A 03/11/2021 EGD WITH BIOPSY (WRVU 2.49) performed by Titi Stroud MD at [facility] ENDOSCOPY ??? PRO UPPER GI ENDOSCOPY, DIAGNOSTIC N/A 05/07/2020 EGD, UPPER GI ENDOSCOPY performed by Rc Carrasquillo MD at [facility] ENDOSCOPY HOME MEDICATIONS: Current Facility-Administered Medications [...] any questions regarding this consult, please page [phone] if you have any further questions. [x] [...] Left common iliac vein stent placement (Express [id number], post-dilated to 12mm) - Left common and external iliac vein stent placement (Wallstent [id number]) - US guided right internal jugular vein [...] Left common iliac vein stent placement (Express [id number], post-dilated to 12mm), Left common and external iliac vein stent placement (Wallstent [id number]); - IVC venogram: suprarenal IVC filter in [...] was inserted and upsized to a 5 Yi sheath over a J-wire. A LLE venogram [...] to the proximal common iliac vein. A [place] 5x40mm balloon was used to dilate the struts, and when the balloon was deflated the sheath was advanced into the IVC. An Express [id number] balloon expandable stent was deployed in the [...] upsizedthe sheath to a 10Fr sheath. A [id number] wallstent was deployed in the left common [...] was performed with the above findings. The [employer] IVC filter retrieval systemwas opened and the [...] 3.66) performed by Rc Carrasquillo MD at [facility] ENDOSCOPY ??? PRO COLONOSCOPY, DIAGNOSTIC N/A 03/11/2021 COLONOSCOPY, DIAGNOSTIC performed by Titi Stroud MD at [facility] ENDOSCOPY ??? PRO COLONOSCOPY, FLEX, W/DIR SUBMUC INJECT N/A 05/07/2020 COLONOSCOPY WITH DIRECTED SUBMUCOSAL INJ (WRVU 3.66) performed by Rc Carrasquillo MD at [facility] ENDOSCOPY ??? PRO COLONOSCOPY, REMV LESN, SNARE N/A 12/11/2016 COLONOSCOPY, POLYPECTOMY, REMOVAL LESION BY SNARE (WRVU 4.67) performed by Jewels Wilkerson MD at [facility] ENDOSCOPY ??? PRO COLONOSCOPY, REMV LESN, SNARE N/A 05/07/2020 COLONOSCOPY, POLYPECTOMY, REMOVAL LESION BY SNARE (WRVU 4.67) performed by Rc Carrasquillo MD at [facility] ENDOSCOPY ? ? PRO DEBRIDEMENT MUSCLE AND FASCIA 20 SQ CM/< Right 03/14/2021 DEBRIDEMENT SKIN, SUBCU, MUSCLE, LOWER EXTREMITY (WRVU 2.7) performed by Deonte De Los Santos MD at [facility] MAIN OR ? ? PRO DEBRIDEMENT SUBCUTANEOUS TISSUE 20 SQCM/< Right 03/18/2021 DEBRIDEMENT SKIN AND SUBCU, LOWER EXTREMITY (WRVU 1.01) performed by Lukasz Patterson MD at [facility] MAIN OR ??? PRO DECOMPRESS ANT/LAT+POST LEG CMPART Right 03/12/2021 FASCIOTOMY, LOWER LEG, ALL COMPARTMENTS -TIFFANY (WRVU 7.82) [facility] ??? PRO HEMORRHOIDECTOMY, INT/EXT, COMPLX N/A 10/28/2016 HEMORRHOIDECTOMY, INTERNAL & EXTERNAL, COMPLEX (WRVU 6.73) performed by Matt Sullivan MDat [facility] OSC ? ? PRO INSERT VENA CAVA FILTER W/WO VASCULAR ACCESS AND RAD S&I N/A 03/12/2021 INSERT INTRAVASC VENA CAVA FILTER, ENDOVASCR APPR, WHEN PERFORMED (WRVU 4.71) performed by Marlene Rodríguez MD at [facility] MAIN OR ??? PRO REMV VEIN CLOT CAVA-ILIAC, LEG INCIS Right 03/12/2021 THROMBECTOMY, VENA CAVA, ILIAC, FEMOROPOPLITEAL VEIN BY LEG INCISION (WRVU 13.37) performed by Marlene Rodríguez MD at [facility] MAIN OR ??? PRO UPPER GI ENDOSCOPY, BIOPSY N/A 03/11/2021 EGD WITH BIOPSY (WRVU 2.49) performed by Titi Stroud MD at [facility] ENDOSCOPY ??? PRO UPPER GI ENDOSCOPY, DIAGNOSTIC N/A 05/07/2020 EGD, UPPER GI ENDOSCOPY performed by Rc Carrasquillo MD at [facility] ENDOSCOPY No Known Allergies Social History [...] who have questions please contact the health personal care service provider that requested your imaging first. Venogram Vascular Surgery Final Result XR Chest [...] who have questions please contact the health personal care service provider that requested your imaging first. Electronically signed by: Nancy Casillas MD, [facility] ([phone]), at 03/15/2021 2:[address] Venogram Abdomen [...] who have questions please contact the health personal care service provider that requested your imaging first. Electronically signed by: Teresa Sweet MD, [facility] ([phone]), at 03/14/2021 1:07 PM IR OR VASC [...] who have questions please contact the health personal care service provider that requested your imaging first. Electronically signed by: Steven Painting DO [facility] ([phone]), at 03/12/2021 8:[address] Venogram Abdomen [...] who have questions please contact the health personal care service provider that requested your imaging first. Electronically signed by: Steven Painting DO, [facility] ([phone]), at 03/12/2021 8:38 AM Request For 2nd [...] of outside imaging study. * Sending Institution [facility] * Date of exam 20210221 * I believe a reinterpretation of this exam may alter care of Patient. Yes TECHNIQUE: CT of the abdomen and pelvis with intravenous contrast was performed at [facility] on February 21, 2021. Helical CT images of the abdomen and pelvis were obtained with intravenous contrast. Per report, the patient received 100 mL Omnipaque 350 intravenous contrast. Multiplanar reformats were performed in the sagittal and coronal planes. Oral contrast was not administered. COMPARISON: There is no similar prior examination provided for comparison. FINDINGS: Brazer Assembler Images: Noncontributory. Lower chest: Visualized structures within [...] who have questions please contact the health personal care service provider that requested your imaging first. Electronically signed by: Steven Painting DO, [facility] ([phone]), at 03/12/2021 8:37 AM --------ORIGINAL REPORT -------- EXAMINATION: * REQUEST FOR 2ND READ CT ABDOMEN AND PELVIS * CT OF THE ABDOMEN AND PELVIS WITH INTRAVENOUS CONTRAST. CLINICAL HISTORY: 60-year-old male with initially presenting with low back pain right lower extremity is cold and mottled. Request for second interpretation of outside imaging study. * Sending Institution [facility] * Date of exam 20210221 * I believe a reinterpretation of this exam may alter care of Patient. Yes TECHNIQUE: CT of the abdomen and pelvis with intravenous contrast was performed at [facility] on February 21, 2021. Helical CT images of the abdomen and pelvis were obtained with intravenous contrast. Per report, the patient received 100 mL Omnipaque 350 intravenous contrast. Multiplanar reformats were performed in the sagittal and coronal planes. Oral contrast was not administered. COMPARISON: There is no similar prior examination provided for comparison. FINDINGS: Brazer Assembler Images: Noncontributory. Lower chest: Visualized structures within [...] who have questions please contact the health personal care service provider that requested your imaging first. Electronically signed by: Steven Painting DO, [facility] ([phone]), at 03/12/2021 8:12 AM Final 1. Focal [...] who have questions please contact the health personal care service provider that requested your imaging first. Electronically signed by: Steven Painting DO, [facility] ([phone]), at 03/12/2021 8:12 AM Film Library- Storage [...] patient. Camacho Sevilla MD 03/28/21 1006 Enid Shipman RN - 03/12/2021 10:[address] Humera Akins Anesthesiology at pt's bedside, consent. Dr Akins Anesthesiology called Dr Annie Wiley Vascular Surgery regarding pain management, aware Dr Annie Wiley requested this screen writer to hold pain medications for ongoing right leg assessment. Enid Shipman RN - 03/12/2021 8:[address] [...] pt's son engaged in care discussion. Enid Shipman RN - 03/12/2021 8:08 AM EST Pt [...] who have questions please contact the health personal care service provider that requested your imaging first. Electronically signed by: Steven Painting DO, [facility] ([phone]), at 03/12/2021 8:[address] Angiogram Chest [...] who have questions please contact the health personal care service provider that requested your imaging first. Electronically signed by: Steven Painting DO, [facility] ([phone]), at 03/12/2021 8:[address] Venogram Abdomen [...] who have questions please contact the health personal care service provider that requested your imaging first. Electronically signed by: Steven Painting DO, [facility] ([phone]), at 03/12/2021 8:38 AM MD Jia Han [...] & Follow-up Care: Contact information for follow-up [facility] [address] [place] [address] Transportation: family or friend will provide - will come to get him Functional status prior to admission: Independent Home Environment: Others in the home: spouse. . Accessibility Concerns: Karlie Pate ([phone]). Current Functional Ability: Assistive Person and Equipment DME used at home: none DME Needed at Discharge: N/A - wound vac no longer needed Patient is insured through: Primary Insurance: MVP Payor: MVP / Plan: MVP [place] / Product Type: *No Product type* / Secondary Insurance: N/A Prescription Coverage: Yes Preferred Pharmacy: [facility] [address] [place] [address] - [address] [place] [address] RO[address] [place] [address] ROAD [address] [facility] [id number] This plan was formulated with input from patient and team. All are in agreement with plan. Italia FELTON, RN Phone: [phone] Pager: [phone] Plan of Care - Evangelista-Charlene Modi RN - 03/20/2021 1:38 AM EST OUTCOME EVALUATION NOTE: OUTCOME SUMMARY: 2239-C/O 6/10 headache and right leg incisional pain, given Oxycodone 5 mg po and Tylenol with relief. Had large BM and voiding adequate amount. 2299-Seen by interventional radiology technologist c/o swelling on the left leg with [...] Amador MD - 03/18/2021 12:03 PM EST [facility] Operative Note Patient Name: Amilcar Pate : [id number] MR#: [id number] Case Date: 03/18/2021 Surgeon: Surgeon(s) and Role: [...] home: spouse. . Accessibility Concerns: Karlie Pate [phone]). Current Functional Ability: Assistive Person and Equipment DME used at home: none DME Needed at Discharge: Other DME Needs: Wound Vac Provider: VINCE Patient is insured through: Primary Insurance: MVP Payor: MVP / Plan: [place] / Product Type: *No Product type* / Secondary Insurance: N/A Prescription Coverage: Yes Preferred Pharmacy: [facility] [address] [place] [address] [address] [place] [address] [address] [facility] [address] Plan for discharge is: Home w/ Services Home Health Services: Registered Nurse, Physical Therapy Agency Referrals & Follow-up Care: [facility] PHONE: [phone] FAX: [phone] Transportation: family or friend will provide Barriers [...] of Discharge: 03/22/2021 Italia FELTON RN Phone: [phone] Pager: [phone] Plan of Care - Rosita Patel RN [...] home: spouse. . Accessibility Concerns: Karlie Pate [phone]). Current Functional Ability: Assistive Person and Equipment DME used at home: none DME Needed at Discharge: Other DME Needs: Wound Vac Provider: VINCE Patient is insured through: Primary Insurance: MVP Payor: MVP / Plan: [place] / Product Type: *No Product type* / Secondary Insurance: N/A Prescription Coverage: Yes Preferred Pharmacy: [facility] [address] [place] [address] - [address] [place] [address] Last Physical Therapy Recommendation: with Last Occupational [...] where referrals are placed. Provided patient with [facility] Star Quality Rating for Home care hand out. Patient requests referral to [facility] PHONE: [phone] FAX: [phone]. Expected date of discharge: 03/18/2021. Referral routed to the Extractor Operator Helper for matching with agency/vendor and to provide [...] indicated. Anticipated Date of Discharge: 03/18/2021 Italia FELTON, RN Phone: [phone] Pager: [phone] Plan of Care - Lilibeth Wilks RN [...] Amador MD - 03/14/2021 12:21 PM EST [facility] Operative Note Patient Name: Amilcar Pate : [id number] MR#: [id number] Case Date: 03/14/2021 Surgeon: Surgeon(s) and Role: [...] Operative Note Patient Name: Amilcar Pate : [id number] MR#: [id number] Case Date: 03/14/2021 Surgeon: Surgeon(s) and Role: [...] Bundle used? N/A Consult Note - Areli Glover [facility] - 03/13/2021 10:06 AM EST TelePharmacy Home Medication List Update for Medication Reconciliation [...] be reconciled bythe provider. [facility] Pharmacist at [phone] for any questions. Areli Glover RPH Op Note - Sachi Ford MD - 03/12/2021 4:52 PM EST [facility] Operative Note Patient Name: Amilcar Pate : [id number] MR#: [id number] Case Date: 03/12/2021 Pre-procedure Dx: Right leg [...] endotracheal anesthesia Fluids: 1400 mL crystalloid Heparin: 42700 units Protamine: None Fluoro Time: 43.1 min Contrast: 197 mL EBL: 500 mL UOP: 800 mL Indications for the Procedure: Amilcar Pate is a 60 year old man recently diagnosed with [id number] was recently diagnosed with a DVT and [...] for infrarenal IVC stenosis - predilated with [place] 14 mm balloon IVC and R CIV stented with Venous WallStent 20 x 80 mm Extended distally into R EIVA with Wallstent 20 x 80 mm Postdilated with [place] 16 mm balloon Completion angiogram with brisk [...] IVC, right CIV and right EIV per office service coordinator'sspecifications. There was return of acute appearing, unorganized pale clot. Repeat venogram showed recanalization of the IVC and right iliac veins but was also notable for an IVC stenosis. This was predilated with a 14 mm [place] balloon. A Venous WallStent 20 x 80 mm was positioned across the area of stenosis in the infrarenal IVC and deployed. This was extended distally with a second WallStent into the right external iliac vein. The stents were postdilated with a 16 mm [place] balloon. Completion venog jeannie was completed with [...] ICU Sachi Ford Vascular Surgery Fellow pager [phone] 03/12/2021 Associated attestation - Marlene Rodríguez MD [...] No, need to discuss ( Karlie Pate ([phone])) If AD's have not been completed Karlie Pate ([phone]) would be surrogate decision maker per [place] surrogate decision making law. (Only good for 180 days) Any patient receiving care at [facility] must abide by [place] law. The hierarchy for surrogate decision making [...] (i) The agent with financial power of trust and estates attorney or a conservator appointed in accordance with RSA 464-A. (j) The guardian of the patient???s estate. Current Coping/Education/Information Needs: Advanced Directive Current Functional Ability: Independent Functional Status Prior to Admission: Independent Home Environment: Others in the home: spouse. . Accessibility Concerns: Karlie Pate ([phone]). Current DME: none Home Address listed as: [address] [place] [address] Social & Family Supports: All names listed below confirmed with patient as current and correct Extended Emergency Contact Information Primary Emergency Contact: Karlie Pate Address: [address] [place], [place] [address] [place] [address] Mobile Relation: Spouse Secondary Emergency Contact: [facility] Mobile Relation: Other Current Care Provided by: [...] Specific Information: none Health/Prescription Coverage: Primary Insurance: P Payor: P / Plan: [facility] [place] / Product Type: *No Product type* / Secondary Insurance: N/A Prescription Coverage: Yes Preferred Pharmacy: [facility] [place], [place] - [address] [facility] [address] Status: Patient is a : unable to [...] assist with transition of care planning. [facility] ED Triage - Varun Vilchis RN - 03/12/2021 5:02 AM EST Hospital Transfer from [facility] brought by EMS, history of clots in legs, had colonoscopy andendoscopy in [facility] yesterday, Eliquis was stopped for 3 days, [...] Stated Reason for Visit: Hospital Transfer from [facility] brought by EMS, case of right leg ischemia, had colonoscopy and endoscopy yesterday in [facility] and so his Eliquis were stopped for [...] are in the results section. DEBRIDEMENT SKIN, Routine 03/14/2021 7:22 SUBCU, MUSCLE, [...] EST procedure are in the results section. RAPID COVID-19 PCR STAT 03/12/2021 10:40 Resul [...] Component Value Ref Test Analysis Performed At [facility] Method Time Signature VB Text Department: Vascular Surgery Lab VASCUBASE Report Patient: [id number] (AMILCAR PATE) CPT: 42582 Referring Physician: MARLENE RODRÍGUEZ ?? Indications: Patient [...] (ABNORMAL) Differential, Automated (03/19/2021 5:28 AM EST) [facility] gist Method Time Signature Neutrophils % 66.1 % [facility] Neutr Abs (ANC) 5.44 1.70 - [facility] 6.10 [facility] x10(3)/[facility] LABORATORY Lymphocytes % 18.0 % [facility] Lymphocytes Abs 1.5 0.9 - 3.2 [facility] x10(3)/[facility] LABORATORY Monocytes % 12.0 % [facility] Monocyte Abs 1.0 (H) 0.3 - 0.9 [facility] x10(3)/[facility] LABORATORY Eosinophils % 2.3 % [facility] Eosinophils Abs 0.2 0.0 - 0.4 [facility] x10(3)/[facility] LABORATORY Basophils % 0.5 % [facility] Basophils Abs 0.0 0.0 - 0.1 [facility] x10(3)/[facility] LABORATORY Immature Gran % 1.10 % [facility] Comment: Immature granulocytes(IG's)percentage an d absolute count will include metamyelocytes, myelocytes, and promyelo cytes. Blood smears from CBCs yielding IG's will be scanned manually for miguel a wu. If this scan disagrees with the automated IG or if promyelocytes are not ed, a manual differential will be performed. Lata Gran Abs 0.09 (H) 0.00 - 0.04 x10(3)/[facility] LABORATORY Specimen Anatomical Collection Method Collection Time Receive d Time (Source) Location / / Volume Laterality Blood 03/19/2021 5:28 AM 5:43 EST AM EST Resulting Agency Comment Spec In Lab Cristina Amador MD HEMATOLOGY ORDERABLES Performing Organization Address City/State/ZIP [place] [address] (ABNORMAL) Hemogram (03/19/2021 5:28 AM EST) Analysis Performed At Patho logist Time Signature WBC 8.2 4.0 - 9.5 [facility] x10(3)/[facility] LABORATORY RBC 3.07 (L) 4.58 - [facility] 5.54 [facility] x10(6)/[facility] LABORATORY Hemoglobin 8.9 (L) 13.7 - [facility] 16[facility] g/dL [facility] Hematocrit 27.9 (L) 40.5 - [facility] 48.[facility] % [facility] MCV 90.9 82.9 - [facility] 93.1 [facility] LABORATORY MCH 29.0 27.5 - [facility] 32.1 pg [facility] MCHC 31.9 (L) 32.0 - [facility] 35.7 g/dL [facility] Platelets 403 (H) 145 - 357 [facility] x10(3)/[facility] LABORATORY RDWSD 43.8 36.0 - [facility] 45.0 [facility] LAB[facility]ATORY RDWCV 13.3 11.4 - [facility] 13.8 % [facility] MPV 9.3 7.6 - 12.9 [facility] LABORATORY nRBC % Auto 0.0 % [facility] nRBC Abs Auto 0.000 0.000 - [facility] 0.000 [facility] x10(3)/[facility] LABORATORY Specimen Anatomical Collection Method Collection Time Receive d Time (Source) Location / / Volume Laterality Blood 03/19/2021 5:28 AM 2 5:43 EST AM EST Resulting Agency Comment Spec In Lab Cristina Amador MD HEMATOLOGY ORDERABLES Performing Organization Address City/[facility]/ZIP Code Phon e Number [address] Phosphorus (03/19/2021 5:28 AM EST) P athologist Signature Phosphorus 4.0 2.5 - 4.5 [facility] mg/dL [facility] LABORATORY Specimen Anatomical Collection Method Collection Time Receive d Time (Source) Location / / Volume Laterality Blood 03/19/2021 5:28 AM 2 5:43 EST AM EST Resulting Agency Comment Spec In Lab Marlene Rodríguez MD CHEMISTRY ORDERABLES Performing Organization Address City/[facility]/ZIP Code Phon e Number [address] Magnesium (03/19/2021 5:28 AM EST) athologist Signature Magnesium 0.91 0.69 - 1.07 [facility]L [facility] Specimen Anatomical Collection Method Collection Time Receive d Time (Source) Location / / Volume Laterality Blood 03/19/2021 5:28 AM 2 5:43 EST AM EST Resulting Agency Comment Spec In Lab Marlene Rodríguez MD CHEMISTRY ORDERABLES Performing Organization Address City/[facility] [place] [address] (ABNORMAL) Basic Metabolic Panel (non-fasting) (03/19/2021 5:28 AM EST) athologist Signature Glucose Lvl 117 65 - 199 [facility] mg/dL [facility] LABORATORY Comment: Diabetes: >=200 mg/dL plus symp toms BUN 12 10 - 20 mg/dL [facility] LABORATORY Creatinine 0.63 (L) 0.80 - 1.50 mg/dL [facility] LABORATORY Sodium 139 135 - 145 mmol/L [facility] LABORATORY Potassium 3.7 3.5 - 5.0 mmol/L [facility] LABORATORY Comment: Please note: ??Patients with WBC >100,00 0 may have falsely elevated Potassium levels. ??For accurate Potassium quantif ication in these patients send serum separator tube (gold top) for subsequent determinations. ??Contact the Clinical Chemistry Laboratory if there are any qu estions. Chloride 103 98 - 107 mmol/L [facility] LABORATORY CO2 23 22 - 31 mmol/L [facility] LABOR[facility]ORY Anion Gap 13 5 - 15 mmol/L [facility] LABORATORY Calcium 8.9 8.5 - 10.5 mg/dL [facility] LABORATORY Estimated GFR 106 >=60 mL/min/1.73 m?? [facility] LABORATORY Comment: This patient? s [...] Organization Address City/State/ZIP [place] [address] (ABNORMAL) Differential, Automated (03/18/2021 5:43 AM EST) [facility] gist Method Time Signature Neutrophils % 66.5 % [facility] LABORATORY Neutr Abs (ANC) 6.74 (H) 1.70 - [facility] 6.10 [place] [address]000(3)/[facility] L LABORATORY Lymphocytes % 19.8 % [facility] LABORATORY Lymphocytes Abs 2.0 0.9 - 3.2 [facility] x10(3)/[facility] LABORATORY Monocytes % 10.4 % [facility] LABORATORY Monocyte Abs 1.0 (H) 0.3 - 0.9 [facility] x10(3)/[facility] LABORATORY Eosinophils % 2.3 % [facility] LABORATORY Eosinophils Abs 0.2 0.0 - 0.4 [facility] x10(3)/[facility] LABORATORY Basophils % 0.4 % [facility] LABORATORY Basophils Abs 0.0 0.0 - 0.1 [facility] x10(3)/[facility] LABORATORY Immature Gran % 0.60 % [facility] LABORATORY Comment: Immature granulocytes(IG's)percentage an d absolute count will include metamyelocytes, myelocytes, and promyelo cytes. Blood smears from CBCs yielding IG's will be scanned manually for concor dance. If this scan disagrees with the automated IG or if promyelocytes are not ed, a manual differential will be performed. Lata Gran Abs 0.06 (H) 0.00 - 0.04 x10(3)/[facility] LABORATORY Specimen Anatomical Collection Method Collection Time Receive d Time (Source) Location / / Volume Laterality Blood 03/18/2021 5:43 AM 6:14 EST AM EST Resulting Agency Comment Spec In Lab Cristina Amador MD HEMATOLOGY ORDERABLES Performing Organization Address City/State/ZIP [place] [address] (ABNORMAL) Hemogram (03/18/2021 5:43 AM EST) Analysis Performed At Patho logist Time Signature WBC 10.1 (H) 4.0 - 9.5 [facility] x10(3)/[facility] LABORATORY RBC 3.22 (L) 4.58 - [facility] 5.54 [facility] x10(6)/[facility] LABORATORY Hemoglobin 9.3 (L) 13.7 - [facility] 16.5 g/dL [facility]OR[facility] Hematocrit 28.4 (L) 40.5 - [facility] 48.5 % [facility]ORAT[facility] MCV 88.2 82.9 - [facility] 93.1 [facility] LABORATORY MCH 28.9 27.5 - [facility] 32.1 pg [facility]ORAT[facility] MCHC 32.7 32.0 - [facility] 35.7 g/dL [facility] Platelets 390 (H) 145 - 357 [facility] x10(3)/[facility] LABORATORY RDWSD 41.8 36.0 - [facility] 45.0 [facility] LABORATORY RDWCV 13.1 11.4 - [facility] 13.8 % [facility]ORAT[facility] MPV 9.9 7.6 - 12.9 [facility] LABORATORY nRBC % Auto 0.0 % [facility] LABORATORY nRBC Abs Auto 0.000 0.000 - [facility] 0.000 [facility] x10(3)/[facility] LABORATORY Specimen Anatomical Collection Method Collection Time Receive d Time (Source) Location / / Volume Laterality Blood 03/18/2021 5:43 AM 2 6:14 EST AM EST Resulting Agency Comment Spec In Lab Cristina Amador MD HEMATOLOGY ORDERABLES Performing Organization Address City/[facility]/ZIP Code Phon e Number [address] Phosphorus (03/18/2021 5:43 AM EST) P athologist Signature Phosphorus 4.0 2.5 - 4.5 [facility] mg/dL [facility] LABORATORY Specimen Anatomical Collection Method Collection Time Receive d Time (Source) Location / / Volume Laterality Blood 03/18/2021 5:43 AM 2 6:14 EST AM EST Resulting Agency Comment Spec In Lab Marlene Rodríguez MD CHEMISTRY ORDERABLES Performing Organization Address City/[facility] Phon e Number [address] Magnesium (03/18/2021 5:43 AM EST) P athologist Signature Magnesium 0.87 0.69 - 1.07 [facility] mmol/L [facility]ORATORY Specimen Anatomical Collection Method Collection Time Receive d Time (Source) Location / / Volume Laterality Blood 03/18/2021 5:43 AM 6:14 EST AM EST Resulting Agency Comment Spec In Lab Marlene Rodríguez MD CHEMISTRY ORDERABLES Performing Organization Address City/State/ZIP [place] [address] (ABNORMAL) Basic Metabolic Panel (non-fasting) (03/18/2021 5:43 AM EST) P athologist Signature Glucose Lvl 122 65 - 199 [facility] mg/dL [facility] Comment: Diabetes: >=200 mg/dL plus symp toms BUN 11 10 - 20 mg/dL [facility] LABORATORY Creatinine 0.60 (L) 0.80 - 1.50 mg/dL [facility] LABORATORY Sodium 136 135 - 145 mmol/L [facility] LABORATORY Potassium 3.7 3.5 - 5.0 mmol/L [facility] LABORATORY Comment: Please note: ??Patients with WBC >100,00 0 may have falsely elevated Potassium levels. ??For accurate Potassium quantif ication in these patients send serum separator tube (gold top) for subsequent determinations. ??Contact the Clinical Chemistry Laboratory if there are any qu estions. Chloride 103 98 - 107 mmol/L [facility] LABORATORY CO2 21 (L) 22 - 31 mmol/L [facility] LABORATORY Anion Gap 12 5 - 15 mmol/L [facility] LABORATORY Calcium 9.2 8.5 - 10.5 mg/dL [facility] LABORATORY Estimated GFR 109 >=60 mL/min/1.73 m?? [facility] LABORATORY Comment: This patient? s [...] Rodríguez MD CHEMISTRY ORDERABLES Performing Organization Address City/[facility]/ZIP Code Phon e Number [address] Heparin (unfractionated) Level (03/18/2021 5:43 AM EST) P athologist Signature Heparin UFH 0.43 IU/mL [facility] LABORATORY Comment: Heparin (anti-Xa) levels should be [...] Rodríguez MD HEMATOLOGY ORDERABLES Performing Organization Address [facility]/ZIP [facility] [place] [place] Phon e Number [address] (ABNORMAL) Differential, Automated (03/17/2021 5:39 AM EST) Patholo gist Method Time Signature Neutrophils % 69.1 % [facility] LABORATORY Neutr Abs (ANC) 6.64 (H) 1.70 - [facility] 6.10 [facility] x10(3)/[facility] LABORATORY Lymphocytes % 17.9 % [facility] LABORATORY Lymphocytes Abs 1.7 0.9 - 3.2 [facility] x10(3)/[facility] LABORATORY Monocytes % 10.2 % [facility] LABORATORY Monocyte Abs 1.0 (H) 0.3 - 0.9 [facility] x10(3)/[facility] LABORATORY Eosinophils % 2.2 % [facility] LABORATORY Eosinophils Abs 0.2 0.0 - 0.4 [facility] x10(3)/[facility] LABORATORY Basophils % 0.3 % [facility] LABORATORY Basophils Abs 0.0 0.0 - 0.1 [facility] x10(3)/[facility] LABORATORY Immature Gran % 0.30 % [facility] LABORATORY Comment: Immature granulocytes(IG's)percentage an d absolute count will include metamyelocytes, myelocytes, and promyelo cytes. Blood smears from CBCs yielding IG's will be scanned manually for concor dance. If this scan disagrees with the automated IG or if promyelocytes are not ed, a manual differential will be performed. Lata Gran Abs 0.03 0.00 - 0.04 x10(3)/[facility] LABORATORY Specimen Anatomical Collection Method Collection Time Receive d Time (Source) Location / / Volume Laterality Blood 03/17/2021 5:39 AM 5:59 EST AM EST Resulting Agency Comment Spec In Lab Cristina Amador MD HEMATOLOGY ORDERABLES Performing Organization Address City/State/ZIP [place] [address] (ABNORMAL) Hemogram (03/17/2021 5:39 AM EST) Analysis Performed At Patho logist Time Signature WBC 9.6 (H) 4.0 - 9.5 [facility] x10(3)/[facility] LABORATORY RBC 3.00 (L) 4.58 - [facility] 5.54 [facility] x10(6)/[facility] LABORATORY Hemoglobin 8.8 (L) 13.7 - [facility] 16.5 g/dL [facility] Hematocrit 26.6 (L) 40.5 - [facility] 48.5 % [facility] MCV 88.7 82.9 - [facility] 93.1 [facility] LABORATORY MCH 29.3 27.5 - [facility]RAV[facility] 32.1 pg [facility] MCHC 33.1 32.0 - [facility]RA[facility] 35.7 g/dL [facility] Platelets 333 145 - 357 [facility] x10(3)/[facility] LABORATORY RDWSD 42.0 36.0 - [facility] 45.0 [facility] LABORATORY RDWCV 13.1 11.4 - [facility] 13.8 % [facility] MPV 9.5 7.6 - 12.9 [facility] LABORATORY nRBC % Auto 0.0 % [facility] LABORATORY nRBC Abs Auto 0.000 0.000 - [facility] 0.000 [facility] x10(3)/[facility] LABORATORY Specimen Anatomical Collection Method Collection Time Receive d Time (Source) Location / / Volume Laterality Blood 03/17/2021 5:39 AM 2 5:59 EST AM EST Resulting Agency Comment Spec In Lab Cristina Amador MD HEMATOLOGY ORDERABLES Performing Organization Address City/[facility]/ZIP Code Phon e Number [address] Phosphorus (03/17/2021 5:39 AM EST) P athologist Signature Phosphorus 4.2 2.5 - 4.5 [facility] Specimen Anatomical Collection Method Collection Time Receive d Time (Source) Location / / Volume Laterality Blood 03/17/2021 5:39 AM 2 5:59 EST AM EST Resulting Agency Comment Spec In Lab Marlene Rodríguez MD CHEMISTRY ORDERABLES Performing Organization Address City/[facility]/ZIP Code Phon e Number [address] Magnesium (03/17/2021 5:39 AM EST) athologist Signature Magnesium 0.90 0.69 - 1.07 [facility] mmol/L [facility]ORATORY Specimen Anatomical Collection Method Collection Time Receive d Time (Source) Location / / Volume Laterality Blood 03/17/2021 5:39 AM 2 5:59 EST AM EST Resulting Agency Comment Spec In Lab Marlene Rodríguez MD CHEMISTRY ORDERABLES Performing Organization Address City/[facility]/ZIP Code Phon e Number [address] Heparin (unfractionated) Level (03/17/2021 5:39 AM EST) athologist Signature Heparin UFH 0.39 IU/mL [facility] LABORATORY Comment: Heparin (anti-Xa) levels should be [...] Organization Address City/State/ZIP [place] [address] (ABNORMAL) Basic Metabolic Panel (non-fasting) (03/17/2021 5:39 AM EST) athologist Signature Glucose Lvl 130 65 - 199 [facility] mg/dL [facility] Comment: Diabetes: >=200 mg/dL plus symp toms BUN 10 10 - 20 mg/dL [facility] LABORATORY Creatinine 0.63 (L) 0.80 - 1.50 mg/dL [facility] LABORATORY Sodium 136 135 - 145 mmol/L [facility] LABOR[facility] Potassium 3.8 3.5 - 5.0 mmol/L [facility]OR[facility] Comment: Please note: ??Patients with WBC >100,00 0 may have falsely elevated Potassium levels. ??For accurate Potassium quantif ication in these patients send serum separator tube (gold top) for subsequent determinations. ??Contact the Clinical Chemistry Laboratory if there are any qu estions. Chloride 104 98 - 107 mmol/L [facility] LABORATORY CO2 24 22 - 31 mmol/L [facility] LABORATORY Anion Gap 8 5 - 15 mmol/L [facility] LABORATORY Calcium 9.1 8.5 - 10.5 mg/dL [facility] LABOR[facility] Estimated GFR 106 >=60 mL/min/1.73 m?? [facility] Comment: This patient? s [...] Organization Address City/State/ZIP [place] [address] Urinalysis with reflex Culture (03/16/2021 10:39 PM EST) [facility] Method Time Signature Glucose UA Negative Negative [facility] Protein UA Negative Negative [facility] mg/dL [facility] Bilirubin UA Negative Negative [facility] mg/dL [facility] Comment: Clinical correlation required for positi ve Urine Bilirubin results as false positive may occur with some drugs and d rug related products. If a false positive is suspected a serum total bili shahid should be considered if clinically indicated. Urobilinogen UA Normal Normal mg/dL [facility] LABORATORY pH UA 7.5 5.0 - 8.0 [facility] LABORATORY Blood UA Negative Negative mg/dL [facility] Ketones UA Negative Negative mg/dL [facility] Nitrite UA Negative Negative [facility] Leukocytes UA Negative Negative [facility] LABORATORY Appearance UA Clear Clear [facility]ORAT[facility] Spec [place] UA 1.007 1.005 - 1.030 [facility] LABORATORY Color UA Yellow Yellow [facility] LABORATORY Culture Reflexed No [facility] LABORATORY Specimen Anatomical Collection Method Collection Time Receive d Time (Source) Location / / Volume Laterality Clean Catch 03/16/2021 10:39 03/16/2021 Urine PM EST 11:04 PM EST Resulting Agency Comment Spec In Lab Marlene Rodríguez MD URINE ORDERABLES Performing Organization Address City/State/ZIP [place] [address] XR Chest One View [...] who have questions please contact the health personal care service provider that requested your imaging first. ? Electronically signed by: Lalo Martinez, [facility] ([phone]), at 03/16/2021 10:29 PM Narrative 03/16/2021 10:29 [...] ho have questions please contact the health personal care service provider that requested your imaging first. Electronically signed by: Lalo Martinez, [facility] ([phone]), at 03/16/2021 10:29 PM Marlene Rodríguez MD IMG DX ORDERABLES Blood culture (03/16/2021 9:06 PM EST) [facility] Method Time Signature Blood Culture No growth [facility] DOWNING at 5 days. [facility]OR[facility] Specimen Anatomical Collection Method Collection Time Receive d Time (Source) Location / / Volume Laterality Blood STRUCTURE OF RIGHT 03/16/2021 9:06 PM 9:53 HAND / Unknown EST PM EST Resulting Agency Comment Spec In Lab Marlene Rodríguez MD MICROBIOLOGY - BLOOD ORDERAB LES Performing Organization Address City/[facility]/ZIP Code Phon e Number [address] Blood culture (03/16/2021 9:06 PM EST) Patholo gist Method Time Signature Blood Culture No growth [facility] at 5 days. [facility] Specimen Anatomical Collection Method Collection Time Receive d Time (Source) Location / / Volume Laterality Blood STRUCTURE OF LEFT 03/16/2021 9:06 PM 03/02 9:52 HAND / Unknown EST PM EST Resulting Agency Comment Spec In Lab Marlene Rodríguez MD MICROBIOLOGY - BLOOD ORDERAB LES Performing Organization Address City/[facility] [place] [address] Heparin (unfractionated) Level (03/16/2021 3:09 AM EST) P athologist Signature Heparin UFH 0.50 IU/mL [facility] LABORATORY Comment: Heparin (anti-Xa) levels should be [...] Rodríguez MD HEMATOLOGY ORDERABLES Performing Organization Address City/[facility]/ZIP Code Phon e Number [address] (ABNORMAL) Differential, Automated (03/16/2021 3:09 AM EST) Patholo gist Method Time Signature Neutrophils % 75.9 % [facility] LABORATORY Neutr Abs (ANC) 7.08 (H) 1.70 - [facility] 6.10 [facility] x10(3)/[facility] LABORATORY Lymphocytes % 13.6 % [facility] LABORATORY Lymphocytes Abs 1.3 0.9 - 3.2 [facility] x10(3)/[facility] LABORATORY Monocytes % 7.7 % [facility] LABORATORY Monocyte Abs 0.7 0.3 - 0.9 [facility] x10(3)/[facility] LABORATORY Eosinophils % 1.9 % [facility] LABORATORY Eosinophils Abs 0.2 0.0 - 0.4 [facility] x10(3)/[facility] LABORATORY Basophils % 0.2 % [facility]ORATORY Basophils Abs 0.0 0.0 - 0.1 [facility] x10(3)/[facility] LABORATORY Immature Gran % 0.70 % [facility]ORATORY Comment: Immature granulocytes(IG's)percentage an d absolute count will include metamyelocytes, myelocytes, and promyelo cytes. Blood smears from CBCs yielding IG's will be scanned manually for concor dance. If this scan disagrees with the automated IG or if promyelocytes are not ed, a manual differential will be performed. Lata Gran Abs 0.07 (H) 0.00 - 0.04 x10(3)/[facility] LABORATORY Specimen Anatomical Collection Method Collection Time Receive d Time (Source) Location / / Volume Laterality Blood 03/16/2021 3:09 AM 3:13 EST AM EST Resulting Agency Comment Spec In Lab Cristina Amador MD HEMATOLOGY ORDERABLES Performing Organization Address City/State/ZIP [place] [address] (ABNORMAL) Hemogram (03/16/2021 3:09 AM EST) Analysis Performed At [facility] logist Time Signature WBC 9.3 4.0 - 9.5 [facility] x10(3)/[facility] LABORATORY RBC 2.92 (L) 4.58 - [facility] 5.54 [facility] x10(6)/[facility] LABORATORY Hemoglobin 8.6 (L) 13.7 - [facility]RA[facility] 16.5 g/dL [facility] Hematocrit 26.0 (L) 40.5 - [facility] 48.5 % [facility] MCV 89.0 82.9 - [facility] 93.1 [facility] LABORATORY MCH 29.5 27.5 - [facility]RAV[facility] 32.1 pg [facility] MCHC 33.1 32.0 - [facility]RAV[facility] 35.7 g/dL [facility] Platelets 292 145 - 357 [facility] x10(3)/[facility] LABORATORY RDWSD 41.7 36.0 - [facility] 45.0 [facility] LABORATORY RDWCV 12.8 11.4 - [facility] 13.8 % [facility] MPV 9.4 7.6 - 12.9 [facility] LABORATORY nRBC % Auto 0.0 % [facility] LABORATORY nRBC Abs Auto 0.000 0.000 - [facility] 0.000 [facility] x10(3)/[facility] LABORATORY Specimen Anatomical Collection Method Collection Time Receive d Time (Source) Location / / Volume Laterality Blood 03/16/2021 3:09 AM 2 3:13 EST AM EST Resulting Agency Comment Spec In Lab Cristina Amador MD HEMATOLOGY ORDERABLES Performing Organization Address City/State/ZIP [place] [address] Phosphorus (03/16/2021 3:09 AM EST) P athologist Signature Phosphorus 3.4 2.5 - 4.5 [facility] mg/dL [facility] Specimen Anatomical Collection Method Collection Time Receive d Time (Source) Location / / Volume Laterality Blood 03/16/2021 3:09 AM 2 3:13 EST AM EST Resulting Agency Comment Spec In Lab Marlene Rodríguez MD CHEMISTRY ORDERABLES Performing Organization Address City/State/ZIP [place] [address] Magnesium (03/16/2021 3:09 AM EST) athologist Signature Magnesium 0.86 0.69 - 1.07 [facility] mmol/L [facility] Specimen Anatomical Collection Method Collection Time Receive d Time (Source) Location / / Volume Laterality Blood 03/16/2021 3:09 AM 3:13 EST AM EST Resulting Agency Comment Spec In Lab Marlene Rodríguez MD CHEMISTRY ORDERABLES Performing Organization Address City/State/ZIP Code Phon e Number [address] (ABNORMAL) Basic Metabolic Panel (non-fasting) (03/16/2021 3:09 AM EST) athologist Signature Glucose Lvl 118 65 - 199 [facility] mg/dL [facility] Comment: Diabetes: >=200 mg/dL plus symp toms BUN 13 10 - 20 mg/dL [facility] LABORATORY Creatinine 0.61 (L) 0.80 - 1.50 mg/dL [facility] LABORATORY Sodium 137 135 - 145 mmol/L [facility] LABORATORY Potassium 4.2 3.5 - 5.0 mmol/L [facility]OR[facility] Comment: Please note: ??Patients with WBC >100,00 0 may have falsely elevated Potassium levels. ??For accurate Potassium quantif ication in these patients send serum separator tube (gold top) for subsequent determinations. ??Contact the Clinical Chemistry Laboratory if there are any qu estions. Chloride 103 98 - 107 mmol/L [facility] CO2 25 22 - 31 mmol/L [facility] Anion Gap 9 5 - 15 mmol/L [facility] Calcium 8.6 8.5 - 10.5 mg/dL [facility] Estimated GFR 108 >=60 mL/min/1.73 m?? [facility] Comment: This patient? s [...] Rodríguez MD CHEMISTRY ORDERABLES Performing Organization Address City/[facility]/[place] [address] Heparin (unfractionated) Level (03/15/2021 8:58 PM EST) athologist Signature Heparin UFH 0.62 IU/mL [facility]ATORY Comment: Heparin (anti-Xa) levels should be [...] / Volume Laterality Blood 03/15/2021 8:58 PM 2 9:02 EST PM EST Resulting Agency Comment Spec In Lab Marlene Rodríguez MD HEMATOLOGY ORDERABLES Performing Organization Address City/[facility]/[place] [address] VS Venogram Vascular Surgery [...] Left common iliac vein stent placement (Express [id number], post-dilated to 12mm) - Left common and external iliac vein st ent placement (Wallstent [id number]) - US guided right internal jugular vein [...] co mmon iliac vein stent placement (Express [id number], post-dilated to 12mm), Left com mon and external iliac vein stent placement (Wallstent [id number]); - IVC venogram: suprarenal IVC filter in [...] the proximal commo n iliac vein. A [place] 5x40mm balloon was used to dilate the [...] sheath to a 1 0Fr sheath. A [id number] wallstent was deployed in the left common [...] was performed with the above findings. The [employer] IVC filter retrieval system was opened a [...] who have questions please contact the health personal care service provider that requested your imaging first. ? Electronically signed by: Marlene Rodríguez MD, [facility] ([phone]), at 03/19/2021 1:46 PM Procedure Note Marlene [...] Left common iliac vein stent placement (Express [id number], post-dilated to 12mm) - Left common and external iliac vein st ent placement (Wallstent [id number]) - US guided right internal jugular vein [...] co mmon iliac vein stent placement (Express [id number], post-dilated to 12mm), Left com mon and external iliac vein stent placement (Wallstent [id number]); - IVC venogram: suprarenal IVC filter in [...] the proximal commo n iliac vein. A [place] 5x40mm balloon was used to dilate the [...] sheath to a 1 0Fr sheath. A [id number] wallstent was deployed in the left common [...] was performed with the above findings. The [employer] IVC filter retrieval system was opened a [...] ho have questions please contact the health personal care service provider that requested your imaging first. Marlene Rodríguez MD IMG IR ORDERABLES Heparin (unfractionated) Level (03/15/2021 1:20 AM EST) athologist Signature Heparin UFH 0.47 IU/mL [facility]ORATORY Comment: Heparin (anti-Xa) levels should be [...] / Volume Laterality Blood 03/15/2021 1:20 AM 2 1:27 EST AM EST Resulting Agency Comment Spec In Lab Marlene Rodríguez MD HEMATOLOGY ORDERABLES Performing Organization Address City/State/ZIP [place] [address] (ABNORMAL) Differential, Automated (03/15/2021 12:41 AM EST) [facility] Signature Neutrophils % 75.9 % [facility] Neutr Abs (ANC) 7.15 (H) 1.70 - [facility] 6.10 [facility] x10(3)/[facility] LABORATORY Lymphocytes % 14.3 % [facility] Lymphocytes Abs 1.4 0.9 - 3.2 [facility] x10(3)/[facility] LABORATORY Monocytes % 7.8 % [facility] Monocyte Abs 0.7 0.3 - 0.9 [facility] x10(3)/[facility] LABORATORY Eosinophils % 1.4 % [facility] Eosinophils Abs 0.1 0.0 - 0.4 [facility] x10(3)/[facility] LABORATORY Basophils % 0.3 % [facility] Basophils Abs 0.0 0.0 - 0.1 [facility] x10(3)/[facility] LABORATORY Immature Gran % 0.30 % [facility] Comment: Immature granulocytes(IG's)percentage an d absolute count will include metamyelocytes, myelocytes, and promyelo cytes. Blood smears from CBCs yielding IG's will be scanned manually for concor dance. If this scan disagrees with the automated IG or if promyelocytes are not ed, a manual differential will be performed. Lata Gran Abs 0.03 0.00 - 0.04 x10(3)/[facility] Specimen Anatomical Collection Method Collection Time Receive d Time (Source) Location / / Volume Laterality Blood 03/15/2021 12:41 03/15/2021 AM EST 12:51 AM EST Resulting Agency Comment Spec In Lab Cristina Amador MD HEMATOLOGY ORDERABLES Performing Organization Address City/State/ZIP [place] [address] (ABNORMAL) Hemogram (03/15/2021 12:41 AM EST) Analysis Performed At Patho logist Time Signature WBC 9.4 4.0 - 9.5 [facility] x10(3)/[facility] LABORATORY RBC 3.11 (L) 4.58 - [facility] 5.54 [facility] x10(6)/[facility] LABORATORY Hemoglobin 8.9 (L) 13.7 - [facility] 16[facility] g/dL [facility] Hematocrit 27.8 (L) 40.5 - [facility] 48.5 % [facility] MCV 89.4 82.9 - [facility] 93.1 [facility] LABORATORY MCH 28.6 27.5 - [facility] 32.1 pg [facility] MCHC 32.0 32.0 - [facility] [place] 35.7 g/dL [facility] Platelets 359 (H) 145 - 357 [facility] x10(3)/[facility] LABORATORY RDWSD 42.1 36.0 - [facility] 45.0 [facility] LABORATORY RDWCV 12.9 11.4 - [facility] 13.8 % [facility] MPV 9.6 7.6 - 12.9 [facility] LABORATORY nRBC % Auto 0.0 % [facility] nRBC Abs Auto 0.000 0.000 - [facility] 0.000 [facility] x10(3)/[facility] LABORATORY Specimen Anatomical Collection Method Collection Time Receive d Time (Source) Location / / Volume Laterality Blood 03/15/2021 12:41 03/15/2021 AM EST 12:51 AM EST Resulting Agency Comment Spec In Lab Cristina Amador MD HEMATOLOGY ORDERABLES Performing Organization Address City/[facility]/ZIP Code Phon e Number [address] Phosphorus (03/15/2021 12:41 AM EST) P athologist Signature Phosphorus 3.1 2.5 - 4.5 [facility] CHANG mg/dL [facility] Specimen Anatomical Collection Method Collection Time Receive d Time (Source) Location / / Volume Laterality Blood 03/15/2021 12:41 03/15/2021 AM EST 12:51 AM EST Resulting Agency Comment Spec In Lab Marlene Rodríguez MD CHEMISTRY ORDERABLES Performing Organization Address City/[facility]/ZIP Code Phon e Number [address] Magnesium (03/15/2021 12:41 AM EST) P athologist Signature Magnesium 0.91 0.69 - 1.07 [facility] CH[facility] mmol/L [facility] Specimen Anatomical Collection Method Collection Time Receive d Time (Source) Location / / Volume Laterality Blood 03/15/2021 12:41 03/15/2021 AM EST 12:51 AM EST Resulting Agency Comment Spec In Lab Marlene Rodríguez MD CHEMISTRY ORDERABLES Performing Organization Address City/State/ZIP [place] [address] (ABNORMAL) Basic Metabolic Panel (non-fasting) (03/15/2021 12:41 AM EST) P athologist Signature Glucose Lvl 152 65 - 199 [facility] mg/dL [facility] Comment: Diabetes: >=200 mg/dL plus symp toms BUN 10 10 - 20 mg/dL [facility] Creatinine 0.62 (L) 0.80 - 1.50 mg/dL [facility] Sodium 135 135 - 145 mmol/L [facility] Potassium 3.8 3.5 - 5.0 mmol/L [facility] Comment: Please note: ??Patients with WBC >100,00 0 may have falsely elevated Potassium levels. ??For accurate Potassium quantif ication in these patients send serum separator tube (gold top) for subsequent determinations. ??Contact the Clinical Chemistry Laboratory if there are any qu estions. Chloride 101 98 - 107 mmol/L [facility] CO2 25 22 - 31 mmol/L [facility] Anion Gap 9 5 - 15 mmol/L [facility] Calcium 8.3 (L) 8.5 - 10.5 mg/dL [facility] Comment: result rechecked- Estimated GFR 107 >=60 mL/min/1.73 m?? [facility] Comment: This patient? s [...] Organization Address City/State/ZIP Code Phon e Number [place] [id number] LAB[address]ORY Drive XR Chest One View [...] who have questions please contact the health personal care service provider that requested your imaging first. ? Narrative [...] ho have questions please contact the health personal care service provider that requested your imaging first. Electronically signed by: Lalo Cloud, [facility] ([phone]), at 03/15/2021 2:01 AM Marlene Rdoríguez MD IMG DX ORDERABLES EKG 12 Lead (03/15/2021 12:26 AM EST) Component Value Ref Range Test Analysis Performed Pathologis t Method Time At Signature Ventricular rate 84 BPM MUSE SYSTEM Atrial Rate 84 BPM MUSE SYSTEM P-R Interval 150 ms MUSE SYSTEM QRS Duration 98 ms MUSE SYSTEM Q-T Interval 376 ms MUSE SYSTEM QTC Calculated 444 ms MUSE SYSTEM (Bezet) Calculated P [place] 30 degrees MUSE SYSTEM Calculated R [place] -5 degrees MUSE SYSTEM Calculated T [place] 30 degrees MUSE SYSTEM INTERPRETATION Normal sinus rhythm MUSE SYSTEM Nonspecific T wave abnormality Abnormal ECG When compared with ECG of 12-MAR-2021 05:17, No significant change was found I personally reviewed the tracing and edited the fellows int erpretation Confirmed by fellow Pato Corcoran ([id number]) on 03/15/2021 1: 59:35 PM Confirmed by Marilin Mclean ([id number]) on 03/16/2021 12:30:59 PM Specimen Anatomical Collection Method Collection Time Receive d Time (Source) Location / / Volume Laterality 03/15/2021 12:26 03/16/2021 AM EST 12:30 PM EST Marlene Rodríguez MD ECG ORDERABLES Performing Organization Address City/[facility]/ZIP Code Phon e Number MUSE SYSTEM Green Tube HOLD (03/14/2021 5:47 PM EST) athologist Signature Green Hold Sample in [facility] LABORATORY Specimen Anatomical Collection Method Collection Time Receive d Time (Source) Location / / Volume Laterality Blood No Charge / 03/14/2021 5:47 PM 5:47 Unknown EST PM EST Marlene Rodríguez MD CHEMISTRY ORDERABLES Performing Organization Address City/[facility]/ZIP [place] [address] Heparin (unfractionated) Level (03/14/2021 5:30 PM EST) athologist Signature Heparin UFH 0.48 IU/mL [facility] LABORATORY Comment: Heparin (anti-Xa) levels should be [...] Organization Address City/State/[place] [address] (ABNORMAL) CK (03/14/2021 1:05 PM EST) athologist Signature CK, Total 5,550 (H) 0 - 200 [facility] unit/L [facility] Specimen Anatomical Collection Method Collection Time Receive d Time (Source) Location / / Volume Laterality Blood 03/14/2021 1:05 PM 2 1:33 EST PM EST Resulting Agency Comment Spec In Lab Marlene Rodríguez MD CHEMISTRY ORDERABLES Performing Organization Address City/State/[place] [address] Venogram Abdomen & [...] who have questions please contact the health personal care service provider that requested your imaging first. ? Electronically signed by: Teresa Sweet MD , [facility] ([phone]), at 03/14/2021 1:07 PM Narrative 03/14/2021 1:07 [...] ho have questions please contact the health personal care service provider that requested your imaging first. Marlene Rodríguez MD IMG CT ORDERABLES Heparin (unfractionated) Level (03/14/2021 10:40 AM EST) P athologist Signature Heparin UFH 0.40 IU/mL [facility]ORY Comment: Heparin (anti-Xa) levels should be [...] Rodríguez MD HEMATOLOGY ORDERABLES Performing Organization Address [facility]/ZIP [facility] [place] [place] [address] Heparin (unfractionated) Level (03/14/2021 4:25 AM EST) P athologist Signature Heparin UFH 0.77 IU/mL [facility]ORY Comment: Heparin (anti-Xa) levels should be [...] / Volume Laterality Blood 03/14/2021 4:25 AM 4:30 EST AM EST Resulting Agency Comment Spec In Lab Marlene Rodríguez MD HEMATOLOGY ORDERABLES Performing Organization Address City/State/[place] [address] (ABNORMAL) CK (03/14/2021 4:25 AM EST) athologist Signature CK, Total 7,495 (H) 0 - 200 [facility] LABORATORY Comment: result rechecked-KS Specimen Anatomical Collection Method Collection Time Receive d Time (Source) Location / / Volume Laterality Blood 03/14/2021 4:25 AM 2 4:30 EST AM EST Resulting Agency Comment Spec In Lab Marlene Rodríguez MD CHEMISTRY ORDERABLES Performing Organization Address City/State/[place] [address] Blue Tube HOLD (03/14/2021 3:35 AM EST) athologist Signature Blue Hold Sample in [facility] LABORATORY Specimen Anatomical Collection Method Collection Time Receive d Time (Source) Location / / Volume Laterality Blood No Charge / 03/14/2021 3:35 AM 2 4:03 Unknown EST AM EST Sachi Ford MD HEMATOLOGY ORDERABLES Performing Organization Address City/State/[place] [address] (ABNORMAL) CK (03/14/2021 2:50 AM EST) athologist Signature CK, Total 7,620 (H) 0 - 200 [facility] LABORATORY Specimen Anatomical Collection Method Collection Time Receive d Time (Source) Location / / Volume Laterality Blood 03/14/2021 2:50 AM 2 2:56 EST AM EST Resulting Agency Comment Spec In Lab Marlene Rodríguez MD CHEMISTRY ORDERABLES Performing Organization Address City/[facility]/[place] [address] (ABNORMAL) CK (03/14/2021 12:35 AM EST) athologist Signature CK, Total 8,075 (H) 0 - 200 [facility] LABORATORY Specimen Anatomical Collection Method Collection Time Receive d Time (Source) Location / / Volume Laterality Blood Venous Draw / 03/14/2021 12:35 03/14/2021 Unknown AM EST 12:44 AM EST Resulting Agency Comment Spec In Lab Ruben Medrano Jr., MD CHEMISTRY ORDERABLES Performing Organization Address City/State/ZIP [place] [address] (ABNORMAL) Differential, Automated (03/14/2021 12:35 AM EST) [facility] Method Time Signature Neutrophils % 79.2 % [facility] Neutr Abs (ANC) 9.29 (H) 1.70 - [facility] 6.10 [facility] x10(3)/[facility] LABORATORY Lymphocytes % 10.1 % [facility] Lymphocytes Abs 1.2 0.9 - 3.2 [facility] x10(3)/[facility] LABORATORY Monocytes % 9.3 % [facility] Monocyte Abs 1.1 (H) 0.3 - 0.9 [facility] x10(3)/[facility] LABORATORY Eosinophils % 0.8 % [facility] Eosinophils Abs 0.1 0.0 - 0.4 [facility] x10(3)/[facility] LABORATORY Basophils % 0.3 % [facility] Basophils Abs 0.0 0.0 - 0.1 [facility] x10(3)/[facility] LABORATORY Immature Gran % 0.30 % [facility] Comment: Immature granulocytes(IG's)percentage an d absolute count will include metamyelocytes, myelocytes, and promyelo cytes. Blood smears from CBCs yielding IG's will be scanned manually for concor dance. If this scan disagrees with the automated IG or if promyelocytes are not ed, a manual differential will be performed. Lata Gran Abs 0.04 0.00 - 0.04 x10(3)/[facility] Specimen Anatomical Collection Method Collection Time Receive d Time (Source) Location / / Volume Laterality Blood 03/14/2021 12:35 03/14/2021 AM EST 12:41 AM EST Resulting Agency Comment Spec In Lab Sachi Ford MD HEMATOLOGY ORDERABLES Performing Organization Address City/State/ZIP [place] [address] (ABNORMAL) Hemogram (03/14/2021 12:35 AM EST) Analysis Performed At Patho logist Time Signature WBC 11.7 (H) 4.0 - 9.5 [facility] LABORATORY RBC 3.03 (L) 4.58 - [facility] 5.54 [facility] x10(6)/[facility] LABORATORY Hemoglobin 8.7 (L) 13.7 - [facility] 16.5 g/dL [facility] Hematocrit 26.8 (L) 40.5 - [facility] 48.5 % [facility] MCV 88.4 82.9 - [facility] 93.1 [facility] LABORATORY MCH 28.7 27.5 - [facility] 32.1 pg [facility] MCHC 32.5 32.0 - [facility] 35.7 g/dL [facility] Platelets 311 145 - 357 [facility] x10(3)/[facility] LABORATORY RDWSD 40.9 36.0 - [facility] 45.0 [facility]ATORY RDWCV 12.6 11.4 - [facility] 13.8 % [facility] MPV 9.3 7.6 - 12.9 [facility] LABORATORY nRBC % Auto 0.0 % [facility] nRBC Abs Auto 0.000 0.000 - [facility] 0.000 [facility] x10(3)/[facility] LABORATORY Specimen Anatomical Collection Method Collection Time Receive d Time (Source) Location / / Volume Laterality Blood 03/14/2021 12:35 03/14/2021 AM EST 12:41 AM EST Resulting Agency Comment Spec In Lab Sachi Ford MD HEMATOLOGY ORDERABLES Performing Organization Address City/State/ZIP [place] [address] (ABNORMAL) Phosphorus (03/14/2021 12:35 AM EST) athologist Signature Phosphorus 2.0 (L) 2.5 - 4.5 [facility] Specimen Anatomical Collection Method Collection Time Receive d Time (Source) Location / / Volume Laterality Blood 03/14/2021 12:35 03/14/2021 AM EST 12:41 AM EST Resulting Agency Comment Spec In Lab Marlene Rodríguez MD CHEMISTRY ORDERABLES Performing Organization Address City/[facility]/ZIP Code Phon e Number [address] Magnesium (03/14/2021 12:35 AM EST) athologist Signature Magnesium 0.87 0.69 - 1.07 [facility] mmol/L [facility] Specimen Anatomical Collection Method Collection Time Receive d Time (Source) Location / / Volume Laterality Blood 03/14/2021 12:35 03/14/2021 AM EST 12:41 AM EST Resulting Agency Comment Spec In Lab Marlene Rodríguez MD CHEMISTRY ORDERABLES Performing Organization Address City/State/[place] [address] (ABNORMAL) Basic Metabolic Panel (non-fasting) (03/14/2021 12:35 AM EST) athologist Signature Glucose Lvl 141 65 - 199 [facility] mg/dL [facility] Comment: Diabetes: >=200 mg/dL plus symp toms BUN 12 10 - 20 mg/dL [facility] Creatinine 0.60 (L) 0.80 - 1.50 mg/dL [facility] Sodium 135 135 - 145 mmol/L [facility] Potassium 3.7 3.5 - 5.0 mmol/L [facility] Comment: Please note: ??Patients with WBC >100,00 0 may have falsely elevated Potassium levels. ??For accurate Potassium quantif ication in these patients send serum separator tube (gold top) for subsequent determinations. ??Contact the Clinical Chemistry Laboratory if there are any qu estions. Chloride 103 98 - 107 mmol/L [facility] CO2 23 22 - 31 mmol/L [facility] Anion Gap 9 5 - 15 mmol/L [facility] Calcium 7.7 (L) 8.5 - 10.5 mg/dL [facility] Estimated GFR 109 >=60 mL/min/1.73 m?? [facility] Comment: This patient? s [...] Organization Address City/State/ZIP [place] [address] (ABNORMAL) Differential, Automated (03/13/2021 9:01 PM EST) [facility] gist Method Time Signature Neutrophils % 71.7 % [facility] Neutr Abs (ANC) 6.70 (H) 1.70 - [facility] 6.10 [facility] x10(3)/[facility] LABORATORY Lymphocytes % 13.5 % [facility] Lymphocytes Abs 1.3 0.9 - 3.2 [facility] x10(3)/[facility] LABORATORY Monocytes % 12.3 % [facility] Monocyte Abs 1.2 (H) 0.3 - 0.9 [facility] x10(3)/[facility] LABORATORY Eosinophils % 1.3 % [facility] Eosinophils Abs 0.1 0.0 - 0.4 [facility] x10(3)/[facility] LABORATORY Basophils % 0.2 % [facility] Basophils Abs 0.0 0.0 - 0.1 [facility] x10(3)/[facility] LABORATORY Immature Gran % 1.00 % [facility] Comment: Immature granulocytes(IG's)percentage an d absolute count will include metamyelocytes, myelocytes, and promyelo cytes. Blood smears from CBCs yielding IG's will be scanned manually for concor dance. If this scan disagrees with the automated IG or if promyelocytes are not ed, a manual differential will be performed. Lata Gran Abs 0.09 (H) 0.00 - 0.04 x10(3)/[facility] LABORATORY Specimen Anatomical Collection Method Collection Time Receive d Time (Source) Location / / Volume Laterality Blood 03/13/2021 9:01 PM 9:06 EST PM EST Resulting Agency Comment Spec In Lab Ruben Medrano Jr., MD HEMATOLOGY ORDERABLES Performing Organization Address City/State/ZIP [place] [address] (ABNORMAL) Hemogram (03/13/2021 9:01 PM EST) Analysis Performed At Patho logist Time Signature WBC 9.3 4.0 - 9.5 [facility] x10(3)/[facility] LABORATORY RBC 3.10 (L) 4.58 - [facility] 5.[facility] x10(6)/[facility] LABORATORY Hemoglobin 9.0 (L) 13.7 - [facility] 16.5 g/dL [facility] Hematocrit 27.8 (L) 40.5 - [facility] 48.5 % [facility] MCV 89.7 82.9 - [facility] 93.1 fL [facility] MCH 29.0 27.5 - [facility] 32.1 pg [facility] MCHC 32.4 32.0 - [facility] 35.[facility] g/dL [facility] Platelets 314 145 - 357 [facility] x10(3)/[facility] LABORATORY RDWSD 41.8 36.0 - [facility] CHANG 45.0 [facility] LABORATORY RDWCV 12.7 11.4 - [facility] 13.8 % [facility] MPV 9.0 7.6 - 12.9 [facility] LABORATORY nRBC % Auto 0.0 % [facility] nRBC Abs Auto 0.000 0.000 - [facility] 0.000 [facility] x10(3)/[facility] LABORATORY Specimen Anatomical Collection Method Collection Time Receive d Time (Source) Location / / Volume Laterality Blood 03/13/2021 9:01 PM 2 9:06 EST PM EST Resulting Agency Comment Spec In Lab Ruben Medrano Jr., MD HEMATOLOGY ORDERABLES Performing Organization Address City/[facility]/ZIP [place] [address] Heparin (unfractionated) Level (03/13/2021 9:01 PM EST) P athologist Signature Heparin UFH <0.04 IU/mL [facility] LABORATORY Comment: Heparin (anti-Xa) levels should be [...] Rodríguez MD HEMATOLOGY ORDERABLES Performing Organization Address City/[facility]/ZIP [place] [address] (ABNORMAL) CK (03/13/2021 5:41 PM EST) athologist Signature CK, Total 10,050 (H) 0 - 200 [facility] unit/L [facility] Specimen Anatomical Collection Method Collection Time Receive d Time (Source) Location / / Volume Laterality Blood 03/13/2021 5:41 PM 6:00 EST PM EST Resulting Agency Comment Spec In Lab Marlene Rodríguez MD CHEMISTRY ORDERABLES Performing Organization Address City/State/ZIP Code Phon e Number [address] (ABNORMAL) Basic Metabolic Panel (non-fasting) (03/13/2021 5:41 PM EST) athologist [facility] Glucose Lvl 122 65 - 199 [facility] mg/dL [facility] Comment: Diabetes: >=200 mg/dL plus symp toms BUN 11 10 - 20 mg/dL [facility] Creatinine 0.68 (L) 0.80 - 1.50 mg/dL [facility] Sodium 138 135 - 145 mmol/L [facility] Potassium 3.9 3.5 - 5.0 mmol/L [facility] Comment: Please note: ??Patients with WBC >100,00 0 may have falsely elevated Potassium levels. ??For accurate Potassium quantif ication in these patients send serum separator tube (gold top) for subsequent determinations. ??Contact the Clinical Chemistry Laboratory if there are any qu estions. Chloride 104 98 - 107 mmol/L [facility] CO2 24 22 - 31 mmol/L [facility] Anion Gap 10 5 - 15 mmol/L [facility] Calcium 8.0 (L) 8.5 - 10.5 mg/dL [facility] Estimated GFR 103 >=60 mL/min/1.73 m?? [facility] Comment: This patient? s [...] / Volume Laterality Blood 03/13/2021 5:41 PM 6:00 EST PM EST Resulting Agency Comment Spec In Lab Martine Gerardo DO CHEMISTRY ORDERABLES Performing Organization Address City/State/[place] [address] ECHOCARDIOGRAM COMPLETE W CONTRAST (03/13/2021 1:32 PM EST) P athologist Signature EF 65 [facility] Anatomical Region Laterality Modality Other Specimen (Source) Anatomical Location Collection Method / Collectio n Time Received Time / Laterality Volume 03/13/2021 Narrative 03/13/2021 2:16 PM EST Procedure: ?Transthoracic Echocardiogram Patient: ?PATE AMILCAR Torrez ?(Age): 1960(60y) Med Rec#: ? [id number] ?Sex: ?M ? Site Loc: ? [facility] ?Ht / Wt: ??174(cm)/96(kg) Pt. Loc: ?ICU ? BSA: ?2.1 Study Date: ?? 03/13/2021 ?Pt. Type: Inpatient Tape: ? Referring: OLIVA Referring: LUIS PURCELLICHARDJ Reading: Yoshi Bolivar ([id number]) [employer] Cashier: Humera Gomez Diagnosis: *Acute embolism and thrombosis [...] Vmax ?0.68 ? m/sec ? MV deceleration uprw538.66 ? m sec ? MV A-wave Vmax [...] ? 03/13/2021 14:15:42 Images reviewed and interpretation verif ied [facility] Cardiac Ultrasound Laboratory Procedure Note Yoshi Bolivar MD - 03/13/2021Formatti ng of this note might be different from the original. Procedure: Transthoracic Echocardiogram Patient: RIO Torrez (Age): (60y) Med Rec#: [id number] Sex: M Site Loc: [facility] Ht / Wt: 174(cm)/96(kg) Pt. Loc: ICU BSA: 2.1 Study Date: 03/13/2021 Pt. Type: Inpatie nt Tape: Referring: [email or web address] Referring: LUIS MDRICHARDJ Reading: Yoshi Bolivar ([id number]) [employer] Cashier: Humera Gomez Diagnosis: *Acute embolism and thrombosis [...] MV E-wave Vmax 0.68 m/sec MV deceleration ttek163.66 msec MV A-wave Vmax 0.85 m/sec MV [...] :42 Images reviewed and interpretation verif ied [facility] Cardiac Ultrasound Laboratory Marlene Rodríguez MD ECHO ORDERABLES (ABNORMAL) CK (03/13/2021 11:40 AM EST) athologist Signature CK, Total 10,859 (H) 0 - 200 [facility] unit/[facility] LABORATORY Specimen Anatomical Collection Method Collection Time Receive d Time (Source) Location / / Volume Laterality Blood 03/13/2021 11:40 03/13/2021 AM EST 12:42 PM EST Resulting Agency Comment Spec In Lab Marlene Rodríguez MD CHEMISTRY ORDERABLES Performing Organization Address City/State/ZIP [place] [address] (ABNORMAL) Differential, Automated (03/13/2021 5:40 AM EST) Patholo gist Method Time Signature Neutrophils % 71.4 % [facility] Neutr Abs (ANC) 5.54 1.70 - [facility] 6.10 [facility] x10(3)/[facility] LABORATORY Lymphocytes % 11.3 % [facility] Lymphocytes Abs 0.9 0.9 - 3.2 [facility] x10(3)/[facility] LABORATORY Monocytes % 15.3 % [facility] Monocyte Abs 1.2 (H) 0.3 - 0.9 [facility] x10(3)/[facility] LABORATORY Eosinophils % 1.2 % [facility] Eosinophils Abs 0.1 0.0 - 0.4 [facility] x10(3)/[facility] LABORATORY Basophils % 0.3 % [facility] Basophils Abs 0.0 0.0 - 0.1 [facility] x10(3)/[facility] LABORATORY Immature Gran % 0.50 % [facility] Comment: Immature granulocytes(IG's)percentage an d absolute count will include metamyelocytes, myelocytes, and promyelo cytes. Blood smears from CBCs yielding IG's will be scanned manually for concor dance. If this scan disagrees with the automated IG or if promyelocytes are not ed, a manual differential will be performed. Lata Gran Abs 0.04 0.00 - 0.04 x10(3)/[facility] LABOR[facility]ORY Specimen Anatomical Collection Method Collection Time Receive d Time (Source) Location / / Volume Laterality Blood 03/13/2021 5:40 AM 5:56 EST AM EST Resulting Agency Comment Spec In Lab Kamron Charles MD HEMATOLOGY ORDERABLES Performing Organization Address City/State/[place] [address] (ABNORMAL) Hemogram (03/13/2021 5:40 AM EST) Analysis Performed At Patho logist Time Signature WBC 7.8 4.0 - 9.5 [facility] x10(3)/[facility] LABORATORY RBC 3.09 (L) 4.58 - [facility] 5.54 [facility] x10(6)/[facility] LABORATORY Hemoglobin 8.8 (L) 13.7 - [facility] 16.5 g/dL [facility] Hematocrit 27.6 (L) 40.5 - [facility] 48.5 % [facility] MCV 89.3 82.9 - [facility] 93.1 [facility] LABORATORY MCH 28.5 27.5 - [facility] 32.1 pg [facility] MCHC 31.9 (L) 32.0 - [facility] 35.7 g/dL [facility] Platelets 294 145 - 357 [facility] x10(3)/[facility] LABORATORY RDWSD 42.4 36.0 - [facility] 45.0 [facility] LABORATORY RDWCV 13.0 11.4 - [facility] 13.8 % [facility] MPV 8.8 7.6 - 12.9 [facility] LABORATORY nRBC % Auto 0.0 % [facility] nRBC Abs Auto 0.000 0.000 - [facility] 0.000 [facility] x10(3)/[facility] LABORATORY Specimen Anatomical Collection Method Collection Time Receive d Time (Source) Location / / Volume Laterality Blood 03/13/2021 5:40 AM 2 5:56 EST AM EST Resulting Agency Comment Spec In Lab Kamron Charles MD HEMATOLOGY ORDERABLES Performing Organization Address City/State/[place] [address] Heparin (unfractionated) Level (03/13/2021 5:40 AM EST) athologist Signature Heparin UFH 0.27 IU/mL [facility] LABORATORY Comment: Heparin (anti-Xa) levels should be [...] Organization Address City/State/ZIP [place] [address] (ABNORMAL) CK (03/13/2021 5:40 AM EST) athologist Signature CK, Total 9,271 (H) 0 - 200 [facility] unit/L [facility] Specimen Anatomical Collection Method Collection Time Receive d Time (Source) Location / / Volume Laterality Blood 03/13/2021 5:40 AM 2 5:56 EST AM EST Resulting Agency Comment Spec In Lab Martine Terri Gerardo DO CHEMISTRY ORDERABLES Performing Organization Address City/State/ZIP Code Phon e Number [address] Phosphorus (03/13/2021 5:40 AM EST) athologist [facility] Phosphorus 2.5 2.5 - 4.5 [facility] mg/dL [facility] Specimen Anatomical Collection Method Collection Time Receive d Time (Source) Location / / Volume Laterality Blood 03/13/2021 5:40 AM 2 5:56 EST AM EST Resulting Agency Comment Spec In Lab Martine Terri Gerardo DO CHEMISTRY ORDERABLES Performing Organization Address City/State/ZIP Code Phon e Number [address] (ABNORMAL) Basic Metabolic Panel (non-fasting) (03/13/2021 5:40 AM EST) athologist [facility] Glucose Lvl 126 65 - 199 [facility] mg/dL [facility] Comment: Diabetes: >=200 mg/dL plus symp toms BUN 10 10 - 20 mg/dL [facility] Creatinine 0.61 (L) 0.80 - 1.50 mg/dL [facility] Sodium 136 135 - 145 mmol/L [facility] Potassium 3.8 3.5 - 5.0 mmol/L [facility] Comment: Please note: ??Patients with WBC >100,00 0 may have falsely elevated Potassium levels. ??For accurate Potassium quantif ication in these patients send serum separator tube (gold top) for subsequent determinations. ??Contact the Clinical Chemistry Laboratory if there are any qu estions. Chloride 105 98 - 107 mmol/L [facility] CO2 23 22 - 31 mmol/L [facility] Anion Gap 8 5 - 15 mmol/L [facility] Calcium 7.8 (L) 8.5 - 10.5 mg/dL [facility] Estimated GFR 108 >=60 mL/min/1.73 m?? [facility] Comment: This patient? s [...] Organization Address City/State/ZIP Code Phon e Number [address] Magnesium (03/13/2021 5:40 AM EST) P athologist Signature Magnesium 1.03 0.69 - 1.07 [facility] mmol/L [facility] Comment: result rechecked-SW Specimen Anatomical Collection Method Collection Time Receive d Time (Source) Location / / Volume Laterality Blood 03/13/2021 5:40 AM 2 5:56 EST AM EST Resulting Agency Comment Spec In Lab Martine Gerardo DO CHEMISTRY ORDERABLES Performing Organization Address City/State/[place] [address] (ABNORMAL) Blood Gas Arterial (03/13/2021 5:35 AM EST) P athologist Signature pH Art 7.41 7.35 - 7.45 [facility] Comment: Sample contains one or more air bubbles which may result in falsely elevated pO2, decreased pCO2 and increased pH. pCO2 Art 40 35 - [address] [facility] Comment: Sample contains one or more air bubbles which may result in falsely elevated pO2, decreased pCO2 and increased pH. pO2 Art 74 (L) 85 - 104 mmHg [facility] Comment: Sample contains one or more air bubbles which may result in falsely elevated pO2, decreased pCO2 and increased pH. HCO3 Art 25.0 20.0 - 26.0 mmol/L [facility] BE Art 0.4 -3.0 - 3.0 mmol/L [facility] Hgb Blood Gas 9.9 (L) 13.7 - 16.5 g/dL [facility] O2HB Art 93.8 (L) 94.0 - 97.0 % [facility] COHB Art 0.7 % [facility] Comment: Nonsmokers: ??0.5-1.5% COHB Smokers: ??Variable, but usually less th an 10% Toxic: 20 - 30% COHB Lethal: ??Greater than 60% COHB METHB Art 0.3 <=1.5 % [facility] Na Whole Blood 133 (L) 135 - 145 mmol/L [facility] K Whole Blood 3.7 3.5 - 5.0 mmol/L [facility] Comment: Please note: ??Patients with WBC >100,00 0 may have falsely elevated Potassium levels. ??Contact the Clinical Chemistry Laboratory if there are any questions. ICa Whole Blood 1.09 (L) 1.15 - 1.33 mmol/L [facility] Comment: Note: ??Total bilirubin higher than 20 m g/dL may lead to falsely low ionized calcium. CL Whole Blood 104 98 - 107 mmol/L [facility] Gluc Whole Bld 128 65 - 199 mg/dL [facility] Comment: Diabetes: >=200 mg/dL plus symp toms. Lactate WB 1.2 0.5 - 2.2 mmol/L [facility] Specimen Anatomical Collection Method Collection Time Receive d Time (Source) Location / / Volume Laterality Blood Arterial Draw / 03/13/2021 5:35 AM 2021 5:55 Unknown EST AM EST Resulting Agency Comment Spec In Lab Kamron Charles MD CHEMISTRY ORDERABLES Performing Organization Address City/State/ZIP [place] [address] (ABNORMAL) Differential, Automated (03/13/2021 12:00 AM EST) [facility] Method Time Signature Neutrophils % 73.8 % [facility] Neutr Abs (ANC) 6.83 (H) 1.70 - [facility] 6.10 [facility] x10(3)/[facility] LABORATORY Lymphocytes % 12.5 % [facility] Lymphocytes Abs 1.2 0.9 - 3.2 [facility] x10(3)/[facility] LABORATORY Monocytes % 12.9 % [facility] Monocyte Abs 1.2 (H) 0.3 - 0.9 [facility] x10(3)/[facility] LABORATORY Eosinophils % 0.1 % [facility] Eosinophils Abs 0.0 0.0 - 0.4 [facility] x10(3)/[facility] LABORATORY Basophils % 0.3 % [facility] Basophils Abs 0.0 0.0 - 0.1 [facility] x10(3)/[facility] LABORATORY Immature Gran % 0.40 % [facility] Comment: Immature granulocytes(IG's)percentage an d absolute count will include metamyelocytes, myelocytes, and promyelo cytes. Blood smears from CBCs yielding IG's will be scanned manually for concor dance. If this scan disagrees with the automated IG or if promyelocytes are not ed, a manual differential will be performed. Lata Gran Abs 0.04 0.00 - 0.04 x10(3)/[facility] Specimen (Source) Anatomical Collection Method Collection Time Re ceived Time Location / / Volume Laterality Blood 03/13/2021 03/13/2021 12:2 4 AM EST Resulting Agency Comment Spec In Lab Kamron Charles MD HEMATOLOGY ORDERABLES Performing Organization Address City/[facility]/ZIP [place] [address] (ABNORMAL) Hemogram (03/13/2021 12:00 AM EST) Analysis Performed At Patho logist Time Signature WBC 9.3 4.0 - 9.5 [facility] x10(3)/[facility] LABORATORY RBC 3.21 (L) 4.58 - [facility] CHANG 5.54 [facility] x10(6)/[facility] LABORATORY Hemoglobin 9.3 (L) 13.7 - [facility] 16.5 g/dL [facility] Hematocrit 28.4 (L) 40.5 - [facility] CHANG 48.5 % [facility] MCV 88.5 82.9 - [facility] 93.1 [facility] LABORATORY MCH 29.0 27.5 - [facility] CHANG 32.1 pg [facility] MCHC 32.7 32.0 - [facility] 35.[facility] g/dL [facility] Platelets 298 145 - 357 [facility] x10(3)/[facility] LABORATORY RDWSD 42.0 36.0 - [facility] 45.0 [facility] LABORATORY RDWCV 12.9 11.4 - [facility] CHANG 13.8 % [facility] MPV 9.0 7.6 - 12.9 [facility] LABORATORY nRBC % Auto 0.0 % [facility] nRBC Abs Auto 0.000 0.000 - [facility] CHANG 0.000 [facility] x10(3)/[facility] LABORATORY Specimen (Source) Anatomical Collection Method Collection Time Re ceived Time Location / / Volume Laterality Blood 03/13/2021 03/13/2021 12:2 4 AM EST Resulting Agency Comment Spec In Lab Kamron Charles MD HEMATOLOGY ORDERABLES Performing Organization Address City/State/[place] [address] Heparin (unfractionated) Level (03/13/2021 12:00 AM EST) athologist [facility] Heparin UFH 0.94 IU/mL [facility] LABORATORY Comment: Heparin (anti-Xa) levels should be [...] Organization Address City/State/ZIP Code Phon e Number [address] (ABNORMAL) CK (03/13/2021 12:00 AM EST) athologist [facility] CK, Total 7,740 (H) 0 - 200 [facility] unit/L [facility] Specimen (Source) Anatomical Collection Method Collection Time Re ceived Time Location / / Volume Laterality Blood 03/13/2021 03/13/2021 12:2 4 AM EST Resulting Agency Comment Spec In Lab Martine Gerardo DO CHEMISTRY ORDERABLES Performing Organization Address City/State/ZIP Code Phon e Number [address] Phosphorus (03/13/2021 12:00 AM EST) athologist [facility] Phosphorus 3.1 2.5 - 4.5 [facility] Specimen (Source) Anatomical Collection Method Collection Time Re ceived Time Location / / Volume Laterality Blood 03/13/2021 03/13/2021 12:2 4 AM EST Resulting Agency Comment Spec In Lab Martine Terri Gerardo DO CHEMISTRY ORDERABLES Performing Organization Address City/State/ZIP [place] [address] (ABNORMAL) Basic Metabolic Panel (non-fasting) (03/13/2021 12:00 AM EST) P athologist Signature Glucose Lvl 161 65 - 199 [facility] mg/dL [facility] Comment: Diabetes: >=200 mg/dL plus symp toms BUN 15 10 - 20 mg/dL [facility] Creatinine 0.73 (L) 0.80 - 1.50 mg/dL [facility] Sodium 132 (L) 135 - 145 mmol/L [facility] Potassium 3.4 (L) 3.5 - 5.0 mmol/L [facility] Comment: Please note: ??Patients with WBC >100,00 0 may have falsely elevated Potassium levels. ??For accurate Potassium quantif ication in these patients send serum separator tube (gold top) for subsequent determinations. ??Contact the Clinical Chemistry Laboratory if there are any qu estions. Chloride 101 98 - 107 mmol/L [facility] CO2 23 22 - 31 mmol/L [facility] Anion Gap 8 5 - 15 mmol/L [facility] Calcium 7.8 (L) 8.5 - 10.5 mg/dL [facility] Estimated GFR 100 >=60 mL/min/1.73 m?? [facility] Comment: This patient? s [...] Organization Address City/State/ZIP Code Phon e Number [address] (ABNORMAL) Magnesium (03/13/2021 12:00 AM EST) P athologist Signature Magnesium 0.68 (L) 0.69 - 1.07 [facility] mmol/L [facility] Specimen (Source) Anatomical Collection Method Collection Time Re ceived Time Location / / Volume Laterality Blood 03/13/2021 03/13/2021 12:2 4 AM EST Resulting Agency Comment Spec In Lab Martine Terri Gerardo DO CHEMISTRY ORDERABLES Performing Organization Address City/[facility]/[place] [address] (ABNORMAL) Blood Gas Arterial (03/12/2021 11:47 PM EST) Analysis Performed At Patho logist Time Signature pH Art 7.40 7.35 - [place]ANG 7.45 [facility] pCO2 Art 37 35 - 45 [facility] mmHg [facility] pO2 Art 76 (L) 85 - 104 [facility] mmHg [facility] HCO3 Art 22.6 20.0 - [employer] 26.0 [facility] mmol/L [facility] BE Art -2.2 -3.0 - 3.0 [facility] mmol/L [facility] Hgb Blood Gas 10.0 (L) 13.7 - [place] [employer] 16.5 g/dL [facility] O2HB Art 94.2 94.0 - [place] 97.0 % [facility] COHB Art 0.8 % [facility] Comment: Nonsmokers: ??0.5-1.5% COHB Smokers: ??Variable, but usually less th an 10% Toxic: 20 - 30% COHB Lethal: ??Greater than 60% COHB METHB Art 0.3 <=1.5 % [facility] Na Whole Blood 132 (L) 135 - 145 mmol/L [facility] K Whole Blood 3.3 (L) 3.5 - 5.0 mmol/L [facility] Comment: Please note: ??Patients with WBC >100,00 0 may have falsely elevated Potassium levels. ??Contact the Clinical Chemistry Laboratory if there are any questions. ICa Whole Blood 1.06 (L) 1.15 - 1.33 mmol/L [facility] Comment: Note: ??Total bilirubin higher than 20 m g/dL may lead to falsely low ionized calcium. CL Whole Blood 103 98 - 107 mmol/L [facility] Gluc Whole Bld 172 65 - 199 mg/dL [facility] Comment: Diabetes: >=200 mg/dL plus symp toms. Lactate WB 0.9 0.5 - 2.2 mmol/L [facility] Specimen Anatomical Collection Method Collection Time Receive d Time (Source) Location / / Volume Laterality Blood Arterial Draw / 03/12/2021 11:47 03/13/19 22 Unknown PM EST 12:24 AM EST Resulting Agency Comment Spec In Lab Martine Gerardo DO CHEMISTRY ORDERABLES Performing Organization Address City/State/ZIP [place] [address] (ABNORMAL) BLOOD GAS 2 ARTERIAL (03/12/2021 5:23 PM EST) Analysis Performed At Patho logist Time Signature pH Art 7.36 7.35 - [facility] 7.45 [facility] pCO2 Art 34 (L) 35 - 45 [facility] LABORATORY pO2 Art 75 (L) 85 - 104 [facility] LABORATORY HCO3 Art 19.0 (L) 20.0 - [facility] 26.0 [facility] [facility] [place] mmol/L [facility] BE Art -6.4 (L) -3.0 - 3.0 [facility] mmol/L [facility] Hgb Blood Gas 11.3 (L) 13.7 - [facility] 16.5 g/dL [facility] O2HB Art 92.6 (L) 94.0 - [facility] 97.0 % [facility] COHB Art 0.3 % [facility] Comment: Nonsmokers: 0.5-1.5% COHB Smokers: Variable, but usually less than 10% Toxic: 20-30% COHB Lethal: Greater than 60% COHB METHB Art 0.6 <=1.5 % [facility] Na Whole Blood 134 (L) 135 - 145 mmol/L [facility] K Whole Blood 3.7 3.5 - 5.0 mmol/L [facility] Comment: Please note: Patients with WBC >100,000 may have falsely elevated Potassium levels. Contact the Clinical Chemistry L aboratory if there are any questions. ICa Whole Blood 1.09 (L) 1.15 - 1.33 mmol/L [facility] Comment: Note: ??Total bilirubin higher than 20 m g/dL may lead to falsely low ionized calcium. CL Whole Blood 105 98 - 107 mmol/L [facility] Gluc Whole Bld 145 65 - 199 mg/dL [facility] Comment: Diabetes: >=200 mg/dL plus symp toms. Lactate WB 1.3 0.5 - 2.2 mmol/L [facility] FIO2 Art 21 % [facility] PF Ratio Art 357 [facility] Specimen Anatomical Collection Method Collection Time Receive d Time (Source) Location / / Volume Laterality Blood 03/12/2021 5:23 PM 2 5:23 EST PM EST Martine Gerardo DO CHEMISTRY ORDERABLES Performing Organization Address City/State/Z[place] [address] (ABNORMAL) CK (03/12/2021 4:51 PM EST) P athologist Signature CK, Total 5,625 (H) 0 - 200 [facility] Comment: result rechecked-cher Specimen Anatomical Collection Method Collection Time Receive d Time (Source) Location / / Volume Laterality Blood Venous Draw / 03/12/2021 4:51 PM 03/12/19 22 5:16 Unknown EST PM EST Resulting Agency Comment Spec In Lab Kamron Charles MD CHEMISTRY ORDERABLES Performing Organization Address City/State/ZIP Code Phon e Number [place] [id number]OSP[address] LAB[address]ORY [address] (ABNORMAL) Differential, Automated (03/12/2021 4:51 PM EST) [facility] Method Time Signature Neutrophils % 77.7 % [facility] Neutr Abs (ANC) 11.01 (H) 1.70 - [facility] 6.10 [facility] [place] x10(3)/[facility] LABORATORY Lymphocytes % 12.9 % [facility] Lymphocytes Abs 1.8 0.9 - 3.2 [facility] x10(3)/[facility] LABORATORY Monocytes % 8.8 % [facility] Monocyte Abs 1.2 (H) 0.3 - 0.9 [facility] x10(3)/[facility] LABORATORY Eosinophils % 0.1 % [facility] Eosinophils Abs 0.0 0.0 - 0.4 [facility] x10(3)/[facility] LABORATORY Basophils % 0.1 % [facility] Basophils Abs 0.0 0.0 - 0.1 [facility] x10(3)/[facility] LABORATORY Immature Gran % 0.40 % [facility] Comment: Immature granulocytes(IG's)percentage an d absolute count will include metamyelocytes, myelocytes, and promyelo cytes. Blood smears from CBCs yielding IG's will be scanned manually for concor dance. If this scan disagrees with the automated IG or if promyelocytes are not ed, a manual differential will be performed. Lata Gran Abs 0.06 (H) 0.00 - 0.04 x10(3)/[facility] LABORATORY Specimen Anatomical Collection Method Collection Time Receive d Time (Source) Location / / Volume Laterality Blood 03/12/2021 4:51 PM 2 5:16 EST PM EST Resulting Agency Comment Spec In Lab Kamron Charles MD HEMATOLOGY ORDERABLES Performing Organization Address City/State/ZIP [place] [address] (ABNORMAL) Hemogram (03/12/2021 4:51 PM EST) Analysis Performed At Patho logist Time Signature WBC 14.2 (H) 4.0 - 9.5 [facility] x10(3)/[facility] LABORATORY RBC 3.63 (L) 4.58 - [facility] [place] x10(6)/[facility] LABORATORY Hemoglobin 10.6 (L) 13.7 - [facility] 16.[facility] g/dL [facility] Hematocrit 32.7 (L) 40.5 - [facility] 48.5 % [facility] MCV 90.1 82.9 - [facility] 93.1 [facility] MCH 29.2 27.5 - [facility] 32.1 pg [facility] MCHC 32.4 32.0 - [facility] 35.7 g/dL [facility] Platelets 409 (H) 145 - 357 [facility] x10(3)/[facility] LABORATORY RDWSD 43.0 36.0 - [facility] 45.0 [facility] LABORATORY RDWCV 12.9 11.4 - [facility] CHANG 13.8 % [facility] MPV 9.2 7.6 - 12.9 [facility] LABORATORY nRBC % Auto 0.0 % [facility] nRBC Abs Auto 0.000 0.000 - [facility] CHANG 0.000 [facility] [place] x10(3)/[facility] LABORATORY Specimen Anatomical Collection Method Collection Time Receive d Time (Source) Location / / Volume Laterality Blood 03/12/2021 4:51 PM 2 5:16 EST PM EST Resulting Agency Comment Spec In Lab Kamron Charles MD HEMATOLOGY ORDERABLES Performing Organization Address City/State/ZIP [place] [address] (ABNORMAL) Prothrombin Time (03/12/2021 4:51 PM EST) P athologist Signature PT 20.6 (H) 9.4 - 12.5 [facility] LABORATORY INR 1.8 [facility] Comment: An INR <2.0 indicates adequate [...] Gerardo DO HEMATOLOGY ORDERABLES Performing Organization Address City/State/ZIP [place] [address] (ABNORMAL) APTT (03/12/2021 4:51 PM EST) athologist Signature PTT >160 25 - 37 [facility] (Critical) [facility]ORATORY Comment: Critical Result called by ?? [...] In Lab Martine Terri A Atchinson DO HEMATOLOGY ORDERABLES Performing Organization Address City/State/[place] [address] Phosphorus (03/12/2021 4:51 PM EST) athologist Signature Phosphorus 3.6 2.5 - 4.5 [facility] mg/dL [facility] Specimen Anatomical Collection Method Collection Time Receive d Time (Source) Location / / Volume Laterality Blood 03/12/2021 4:51 PM 2 5:16 EST PM EST Resulting Agency Comment Spec In Lab Martine Murray Sreekanth Gerardo DO CHEMISTRY ORDERABLES Performing Organization Address City/State/ZIP Code Phon e Number [address] Magnesium (03/12/2021 4:51 PM EST) athologist Signature Magnesium 0.76 0.69 - 1.07 [facility] mmol/L [facility] Specimen Anatomical Collection Method Collection Time Receive d Time (Source) Location / / Volume Laterality Blood 03/12/2021 4:51 PM 2 5:16 EST PM EST Resulting Agency Comment Spec In Lab Martine Stack Humaira AVILES CHEMISTRY ORDERABLES Performing Organization Address City/[facility]/[place]IP [place] [address] (ABNORMAL) Basic Metabolic Panel (non-fasting) (03/12/2021 4:51 PM EST) athologist Signature Glucose Lvl 149 65 - 199 [facility] mg/dL [facility] Comment: Diabetes: >=200 mg/dL plus symp toms BUN 15 10 - 20 mg/dL [facility] Creatinine 0.78 (L) 0.80 - 1.50 mg/dL [facility] Sodium 138 135 - 145 mmol/L [facility] Potassium 4.3 3.5 - 5.0 mmol/L [facility] Comment: Please note: ??Patients with WBC >100,00 0 may have falsely elevated Potassium levels. ??For accurate Potassium quantif ication in these patients send serum separator tube (gold top) for subsequent determinations. ??Contact the Clinical Chemistry Laboratory if there are any qu estions. Chloride 107 98 - 107 mmol/L [facility] CO2 17 (L) 22 - 31 mmol/L [facility] Anion Gap 14 5 - 15 mmol/L [facility] Calcium 8.0 (L) 8.5 - 10.5 mg/dL [facility] Estimated GFR 97 >=60 mL/min/1.73 m?? [facility] Comment: This patient? s [...] Organization Address City/State/ZIP [place] [address] (ABNORMAL) Heparin (unfractionated) Level (03/12/2021 4:51 PM EST) [facility] Method Time Signature Heparin UFH >2.00 IU/mL [facility] (Critical) [facility] Comment: Critical Result called by ?? [...] Wiley MD HEMATOLOGY ORDERABLES Performing Organization Address City/[facility]/[place] [address] Prepare RBC (03/12/2021 4:40 PM EST) athologist Signature Dispensed? No [facility] Specimen Anatomical Collection Method Collection Time Receive d Time (Source) Location / / Volume Laterality Blood 03/12/2021 4:40 PM 2 4:39 EST PM EST Nilda Tinoe CRNA BLOOD BANK ORDERABLES Performing Organization Address City/[facility]/[place] [address] (ABNORMAL) CK (03/12/2021 3:27 PM EST) P athologist Signature CK, Total 2,740 (H) 0 - 200 [facility] unit/L [facility] Specimen Anatomical Collection Method Collection Time Receive d Time (Source) Location / / Volume Laterality Blood 03/12/2021 3:27 PM 2 3:35 EST PM EST Resulting Agency Comment Spec In Lab Martine Gerardo DO CHEMISTRY ORDERABLES Performing Organization Address City/[facility]/[place] [address] (ABNORMAL) BLOOD GAS 2 ARTERIAL (03/12/2021 12:09 PM EST) Analysis Performed At Patho logist Time Signature pH Art 7.40 7.35 - [facility] 7.45 [facility] pCO2 Art 38 35 - 45 [facility] mmHg [facility] pO2 Art 248 (H) 85 - 104 [facility] LABORATORY HCO3 Art 23.2 20.0 - [facility] 26.0 [facility] [place] mmol/L [facility] BE Art -1.7 -3.0 - 3.0 [facility] mmol/L [facility] Hgb Blood Gas 11.4 (L) 13.7 - [facility] 16.5 g/dL [facility] O2HB Art 98.8 (H) 94.0 - [facility] 97.0 % [facility] COHB Art 0.3 % [facility] Comment: Nonsmokers: 0.5-1.5% COHB Smokers: Variable, but usually less than 10% Toxic: 20-30% COHB Lethal: Greater than 60% COHB METHB Art 0.3 <=1.5 % [facility] Na Whole Blood 136 135 - 145 mmol/L [facility] K Whole Blood 4.0 3.5 - 5.0 mmol/L [facility] Comment: Please note: Patients with WBC >100,000 may have falsely elevated Potassium levels. Contact the Clinical Chemistry L aboratory if there are any questions. ICa Whole Blood 1.10 (L) 1.15 - 1.33 mmol/L [facility] Comment: Note: ??Total bilirubin higher than 20 m g/dL may lead to falsely low ionized calcium. CL Whole Blood 105 98 - 107 mmol/L [facility] Gluc Whole Bld 116 65 - 199 mg/dL [facility] Comment: Diabetes: >=200 mg/dL plus symp toms. Lactate WB 0.7 0.5 - 2.2 mmol/L [facility] FIO2 Art 66 % [facility] Flow Art 0.6 LPM [facility] PF Ratio Art 376 [facility] Temp Art 36.9 Celsius [facility] Specimen Anatomical Collection Method Collection Time Receive d Time (Source) Location / / Volume Laterality Blood 03/12/2021 12:09 03/12/2021 PM EST 12:09 PM EST Rosemary Wiley MD CHEMISTRY ORDERABLES Performing Organization Address City/[facility]/ZIP [place] [address] IR OR VASC Aniogram Image Storage Only (03/12/2021 12:08 PM EST) Specimen (Source) Anatomical Location Collection Method / Collectio n Time Received Time / Laterality Volume Narrative DH RAD - 03/12/2021 12:08 PM EST This exam is auto-finalizing. It's purpo se is for storage only. Marlene Rodríguez MD IMG FILM LIBRARY ORDERABLES Performing Organization Address City/[facility]/ZIP Code Phon e Number [place], [place] COVID-19 PCR (03/12/2021 10:40 AM EST) [facility] gist Method Time Signature SARS-CoV-2 Not Detected Not Detected [facility] RNA PCR [facility] Comment: This result should be interpreted [...] using the Simplexa COVID-19 Direct Assay by [employer] mayo as authorized by the FDA issued Emergency Use Authorization (EUA). This assay is intended for In-vitro Diagnostic (IVD) use with nasopharyngeal swabs collected from individuals meeting the CDC criteria for testing. Th e assay is performed based on the instructions for use and additional guid ance provided by the FDA. Testing is performed in the Microbiology Laboratory within the Department of Pathology and Laboratory Medicine at [facility], certified under the Clinical Laboratory Improvement Amendmen [...] clinical management guidance information are available at [facility] CDC Coronavirus Disease 2019 (COVID-19) webpage under Information fo r Healthcare Professionals (https://www.cdc.gov/coronavirus/2019-nc ov/hcp/index.html). Additional information about this and ot her EUA tests can be found in provider and patient fact sheets at the following FDA website: https://www.fda.gov/medical-devices/deesidjexzf-heomoqi-1361-agwqm-91-yrfwrxumw- wjp-mvbibqbtrcklgt-smllbfm-devices/ihtqb-yytnyabeaqc-pduq SARS-CoV-2 Source [employer]MOM[employer]ER TESTER Swab [facility] Specimen (Source) Anatomical Collection Method Collection Time Re ceived Time Location / / Volume Laterality Nasopharyngeal Swab 03/12/2021 10:40 03/02 AM EST 12:37 PM EST Comment: Symptoms->Surveillance Resulting Agency Comment Spec In Lab Reinaldo Merino MD MICROBIOLOGY - GENERAL ORDER LARRY Performing Organization Address City/State/ZIP [place] [address] Prepare RBC (03/12/2021 10:15 AM EST) P athologist Signature Dispensed? Yes [facility] Specimen Anatomical Collection Method Collection Time Receive d Time (Source) Location / / Volume Laterality Blood 03/12/2021 10:15 03/12/2021 AM EST 10:12 AM EST Nilda Tineo CRNA BLOOD BANK ORDERABLES Performing Organization Address City/State/ZIP Code Phon e Number [place] [phone] HOSPITAL LABORATORY Drive Duplex for DVT, Leg, Unilat (03/12/2021 8:49 AM EST) Component Value Ref Test Analysis Performed At [facility] Range Method Time Signature VB Text Department: Vascular Surgery Lab VASCUBASE Report Patient: [id number] (AMILCAR PATE) CPT: 07880 Referring Physician: REINALDO MERINO ?? Phone: Indications: [...] who have questions please contact the health personal care service provider that requested your imaging first. ? Electronically signed by: Steven Painting DO, [facility] ([phone]), at 03/12/2021 8:38 AM Narrative 03/12/2021 8:38 [...] the thorax is provided for comparison. FINDINGS: Brazer Assembler Images: Noncontributory. CTA OF THE CHEST: Pulmonary [...] who have questions please contact the health personal care service provider that requested your imaging first. ? Electronically signed by: Steven Painting DO, [facility] ([phone]), at 03/12/2021 8:38 AM Narrative 03/12/2021 8:38 [...] the thorax is provided for comparison. FINDINGS: Brazer Assembler Images: Noncontributory. CTA OF THE CHEST: Pulmonary [...] Agency Comment Unexpected Finding Camacho Sevilla MD [facility] CT ORDERABLES Request For 2nd Read CT [...] of outside imaging study. * ??Sending Institution [facility] * ??Date of exam [id number] * ??I believe a reinterpretation of this exam may alter care of Patient. Yes TECHNIQUE: CT of the abdomen and pelvis with intravenous contrast was performed at [facility] on Jan. ??Helical CT images of the abdomen and pelvis were obtained wit h intravenous contrast. ??Per report, the patient received 100 mL Omnipaque 350 in travenous contrast. ??Multiplanar reformats were performed in the sagittal and coronal planes. ??Oral contrast was not administered. COMPARISON: There is no similar prior ex amination provided for comparison. FINDINGS: Brazer Assembler Images: Noncontributory. Lower chest: Visualized structures withi [...] who have questions please contact the health personal care service provider that requested your imaging first. ? Electronically signed by: Steven Painting DO, [facility] ([phone]), at 03/12/2021 8:37 AM --------ORIGINAL REPORT -------- EXAMINATION: * ??REQUEST FOR 2ND READ CT ABDOMEN AND PELVIS * ??CT OF THE ABDOMEN AND PELVIS WITH IN TRAVENOUS CONTRAST. CLINICAL HISTORY: 60-year-old male with initially presenting with low back pain right lower extremity is cold and mottle d. ??Request for second interpretation of outside imaging study. * ??Sending Institution [facility] * ??Date of exam 20210221 * ??I believe a reinterpretation of this exam may alter care of Patient. Yes TECHNIQUE: CT of the abdomen and pelvis with intravenous contrast was performed at [facility] on Jan. ??Helical CT images of the abdomen and pelvis were obtained wit h intravenous contrast. ??Per report, the patient received 100 mL Omnipaque 350 in travenous contrast. ??Multiplanar reformats were performed in the sagittal and coronal planes. ??Oral contrast was not administered. COMPARISON: There is no similar prior ex amination provided for comparison. FINDINGS: Brazer Assembler Images: Noncontributory. Lower chest: Visualized structures withi [...] who have questions please contact the health personal care service provider that requested your imaging first. ? Electronically signed by: Steven Painting DO, [facility] ([phone]), at 03/12/2021 8:12 AM Impressions 03/12/2021 8:12 [...] who have questions please contact the health personal care service provider that requested your imaging first. ? Narrative 03/12/2021 8:12 AM EST EXAMINATION: * ??REQUEST FOR 2ND READ CT ABDOMEN AND PELVIS * ??CT OF THE ABDOMEN AND PELVIS WITH IN TRAVENOUS CONTRAST. CLINICAL HISTORY: 60-year-old male with initially presenting with low back pain right lower extremity is cold and mottle d. ??Request for second interpretation of outside imaging study. * ??Sending Institution [facility] * ??Date of exam [id number] * ??I believe a reinterpretation of this exam may alter care of Patient. Yes TECHNIQUE: CT of the abdomen and pelvis with intravenous contrast was performed at [facility] on Jan. ??Helical CT images of the abdomen and pelvis were obtained wit h intravenous contrast. ??Per report, the patient received 100 mL Omnipaque 350 in travenous contrast. ??Multiplanar reformats were performed in the sagittal and coronal planes. ??Oral contrast was not administered. COMPARISON: There is no similar prior ex amination provided for comparison. FINDINGS: Brazer Assembler Images: Noncontributory. Lower chest: Visualized structures withi [...] disc phenomenon. ?? Procedure Note Steven Painting, DO - 03/12/2021Formatti ng of this note might [...] of outside imaging study. * Sending Institution [facility] * Date of exam [id number] * I believe a reinterpretation of this e xam may alter care of Patient. Yes TECHNIQUE: CT of the abdomen and pelvis with intravenous contrast was performed at [facility] on Jan. Helical CT images of the abdomen and pelvis were obtained wit h intravenous contrast. Per report, the patient received 100 mL Omnipaque 350 in travenous contrast. Multiplanar reformats were performed in the sagittal and coronal planes. Oral contrast was not administered. COMPARISON: There is no similar prior ex amination provided for comparison. FINDINGS: Brazer Assembler Images: Noncontributory. Lower chest: Visualized structures withi [...] ho have questions please contact the health personal care service provider that requested your imaging first. Electronically signed by: Steven Painting DO, [facility] ([phone]), at 03/12/2021 8:12 AM Camacho Sevilla MD [...] 472 ms MUSE SYSTEM (Bezet) Calculated P [place] 28 degrees MUSE SYSTEM Calculated R [place] -6 degrees MUSE SYSTEM Calculated T [place] 55 degrees MUSE SYSTEM INTERPRETATION Normal sinus rhythm MUSE SYSTEM Nonspecific T wave abnormality Abnormal ECG When compared with ECG of 26-FEB-2021 17:47, No significant change was found I personally reviewed the tracing and edited the fellows int erpretation Confirmed by fellow Pato Corcoran ([id number]) on 03/12/2021 10 :37:34 PM Confirmed by [...] Time Signature pH Luis 7.40 7.32 - [facility] 7.42 [facility] pCO2 Luis 34 (L) 41 - 51 [facility] LABORATORY pO2 Luis 34 25 - 40 [facility] LABORATORY HCO3 Luis 20.5 mmol/L [facility] BE Luis -4.3 mmol/L [facility] Hgb Blood Gas 11.4 (L) 13.7 - [facility] 16.5 g/dL [facility] O2HB Luis 65.1 % [facility] COHB Luis 0.8 % [facility] Comment: Nonsmokers: 0.5-1.5% COHB Smokers: Variable, but usually less than 10% Toxic: 20-30% COHB Lethal: Greater than 60% COHB METHB Luis 0.7 <=1.5 % [facility] Na Whole Blood 135 135 - 145 mmol/L [facility] K Whole Blood 3.4 (L) 3.5 - 5.0 mmol/L [facility] Comment: Please note: Patients with WBC >100,000 may have falsely elevated Potassium levels. Contact the Clinical Chemistry L aboratory if there are any questions. ICa Whole Blood 1.11 (L) 1.15 - 1.33 mmol/L [facility] Comment: Note: ??Total bilirubin higher than 20 m g/dL may lead to falsely low ionized calcium. CL Whole Blood 102 98 - 107 mmol/L [facility] Gluc Whole Bld 135 65 - 199 mg/dL [facility] Comment: Diabetes: >=200 mg/dL plus symp toms Lactate WB 1.4 0.5 - 2.2 mmol/L [facility] BGas Source Venous [facility] Specimen Anatomical Collection Method Collection Time Receive d Time (Source) Location / / Volume Laterality Blood 03/12/2021 5:13 AM 2 5:13 EST AM EST Camacho Seivlla MD CHEMISTRY ORDERABLES Performing Organization Address City/[facility]/ZIP Code Phon e Number [address] Bilirubin, Direct (03/12/2021 5:11 AM EST) P athologist Signature Bili, Direct 0.1 0.0 - 0.3 [facility] mg/dL [facility] Specimen Anatomical Collection Method Collection Time Receive d Time (Source) Location / / Volume Laterality Blood 03/12/2021 5:11 AM 2 5:18 EST AM EST Resulting Agency Comment Spec In Lab Camacho Sevilla MD CHEMISTRY ORDERABLES Performing Organization Address City/[facility]/ZIP Code Phon e Number [address] (ABNORMAL) Differential, Automated (03/12/2021 5:11 AM EST) Patholo gist Method Time Signature Neutrophils % 88.1 % [facility] LABORATORY Neutr Abs (ANC) 11.19 (H) 1.70 - [facility] 6.10 [facility] x10(3)/[facility] L LABORATORY Lymphocytes % 6.5 % [facility] LABORATORY Lymphocytes Abs 0.8 (L) 0.9 - 3.2 [facility] x10(3)/[facility] LABORATORY Monocytes % 4.6 % [facility] LABORATORY Monocyte Abs 0.6 0.3 - 0.9 [facility] x10(3)/[facility] LABORATORY Eosinophils % 0.0 % [facility] LABORATORY Eosinophils Abs 0.0 0.0 - 0.4 [facility] x10(3)/[facility] LABORATORY Basophils % 0.2 % [facility] LABORATORY Basophils Abs 0.0 0.0 - 0.1 [facility] x10(3)/[facility] LABORATORY Immature Gran % 0.60 % [facility] LABORATORY Comment: Immature granulocytes(IG's)percentage an d absolute count will include metamyelocytes, myelocytes, and promyelo cytes. Blood smears from CBCs yielding IG's will be scanned manually for concor dance. If this scan disagrees with the automated IG or if promyelocytes are not ed, a manual differential will be performed. Lata Gran Abs 0.08 (H) 0.00 - 0.04 x10(3)/[facility] LABORATORY Specimen Anatomical Collection Method Collection Time Receive d Time (Source) Location / / Volume Laterality Blood 03/12/2021 5:11 AM 5:18 EST AM EST Resulting Agency Comment Spec In Lab Camacho Sevilla MD HEMATOLOGY ORDERABLES Performing Organization Address City/State/ZIP [place] [address] (ABNORMAL) Hemogram (03/12/2021 5:11 AM EST) Analysis Performed At Patho logist Time Signature WBC 12.7 (H) 4.0 - 9.5 [facility] x10(3)/[facility] LABORATORY RBC 3.74 (L) 4.58 - [facility] 5.54 [facility] x10(6)/[facility] LABORATORY Hemoglobin 10.7 (L) 13.7 - [facility] 16.5 g/dL [facility] LABORATORY Hematocrit 33.2 (L) 40.5 - [facility] 48.5 % [facility] MCV 88.8 82.9 - [facility] 93.1 [facility] LABORATORY MCH 28.6 27.5 - [facility] CHANG 32.1 pg [facility] LABORATORY MCHC 32.2 32.0 - [facility] 35.7 g/dL [facility] LABORATORY Platelets 523 (H) 145 - 357 [facility] x10(3)/[facility] LABORATORY RDWSD 40.6 36.0 - [facility] 45.0 [facility] LABORATORY RDWCV 12.4 11.4 - [facility] 13.8 % [facility] LABORATORY MPV 8.9 7.6 - 12.9 [facility] LABORATORY nRBC % Auto 0.0 % [facility] LABORATORY nRBC Abs Auto 0.000 0.000 - [facility] 0.000 [facility] x10(3)/[facility] LABORATORY Specimen Anatomical Collection Method Collection Time Receive d Time (Source) Location / / Volume Laterality Blood 03/12/2021 5:11 AM 5:18 EST AM EST Resulting Agency Comment Spec In Lab Camacho Sevilla MD HEMATOLOGY ORDERABLES Performing Organization Address City/State/ZIP [place] [address] (ABNORMAL) Comprehensive metabolic panel (non-fasting) (03/12/2021 5:11 AM EST) P athologist Signature Glucose Lvl 135 65 - 199 [facility] mg/dL [facility] LABORATORY Comment: Diabetes: >=200 mg/dL plus symp toms BUN 17 10 - 20 mg/dL [facility] LABORATORY Creatinine 0.70 (L) 0.80 - 1.50 mg/dL [facility] LABORATORY Sodium 138 135 - 145 mmol/L [facility] LABORATORY Potassium 3.4 (L) 3.5 - 5.0 mmol/L [facility] LABORATORY Comment: Please note: ??Patients with WBC >100,00 0 may have falsely elevated Potassium levels. ??For accurate Potassium quantif ication in these patients send serum separator tube (gold top) for subsequent determinations. ??Contact the Clinical Chemistry Laboratory if there are any qu estions. Chloride 105 98 - 107 mmol/L [facility] LABORATORY CO2 19 (L) 22 - 31 mmol/L [facility] LABORATORY Anion Gap 14 5 - 15 mmol/L [facility] LABORATORY Calcium 7.8 (L) 8.5 - 10.5 mg/dL [facility] LABORATORY Total Protein 6.4 6.1 - 8.0 g/dL [facility] Albumin 3.4 3.2 - 5.2 g/dL [facility] LABORATORY AST 14 0 - 39 unit/L [facility] LABORATORY ALT 13 0 - 55 unit/L [facility] LABOR[facility] Alk Phos 80 40 - 130 unit/L [facility] LABORATORY Total Bilirubin 0.4 0.2 - 1.3 mg/dL [facility] LABORATORY Estimated GFR 102 >=60 mL/min/1.73 m?? [facility] LABORATORY Comment: This patient? s [...] Organization Address City/State/ZIP [place] [address] Type and Screen Validity (03/12/2021 5:10 AM EST) [facility] Method Time Signature T&S only valid [facility] at [facility] Comment: This Type and Screen result is only valid at the [facility] Specimen Anatomical Collection Method Collection Time Receive d Time (Source) Location / / Volume Laterality Blood 03/12/2021 5:10 AM 2 5:17 EST AM EST Resulting Agency Comment Spec In Lab Camacho Sevilla MD BLOOD BANK ORDERABLES Performing Organization Address City/State/ZIP Code Phon e Number [address] ABORH Recheck Status (03/12/2021 5:10 AM EST) [facility] Method Time Signature ABORH Recheck Order Placed [facility] LABORATORY ABORH Type Complete [facility] LABORATORY Specimen Anatomical Collection Method Collection Time Receive d Time (Source) Location / / Volume Laterality Blood 03/12/2021 5:10 AM 2 5:17 EST AM EST Resulting Agency Comment Spec In Lab Camacho Sevilla MD BLOOD BANK ORDERABLES Performing Organization Address City/State/ZIP Code Phon e Number [address] Antibody screen (03/12/2021 5:10 AM EST) [facility] Method Time Signature Ab Screen Negative [facility] LABORATORY Expires at 03/15/2021 PHU[facility] CHANG [id number] on: [facility] LABORATORY Specimen Anatomical Collection Method Collection Time Receive d Time (Source) Location / / Volume Laterality Blood 03/12/2021 5:10 AM 2 5:17 EST AM EST Resulting Agency Comment Spec In Lab Camacho Sevilla MD BLOOD BANK ORDERABLES Performing Organization Address City/State/ZIP Code Phon e Number [address] ABO/Rh Typing (03/12/2021 5:10 AM EST) P athologist Signature ABORh Type O Pos [facility] LABORATORY Specimen Anatomical Collection Method Collection Time Receive d Time (Source) Location / / Volume Laterality Blood 03/12/2021 5:10 AM 2 5:17 EST AM EST Resulting Agency Comment Spec In Lab Camacho Sevilla MD BLOOD BANK ORDERABLES Performing Organization Address City/State/ZIP [place] [address] Film Library- Storage Only CT Abdomen & Pelvis (02/21/2021 12:00 AM EST) Specimen (Source) Anatomical Location Collection Method / Collectio n Time Received Time / Laterality Volume Narrative RAD - 03/12/2021 3:53 AM EST This exam is auto-finalizing. It's purpo se is for storage only. Roesmary Wiley MD IMG FILM LIBRARY ORDERABLES Performing Organization Address City/State/ZIP Code Phon e Number [place], [place] SCAN DOC: IMPLANTABLE DEVICES (03/12/2020 12:00 AM EST) Narrative This result has an attachment that is no t available. Unknown MEDIA MGR SCAN EXT ORDR/RSLT documented in this encounter Visit Diagnoses Not on filedocumented in this encounter Admitting Diagnoses Diagnosis IVC [...] Given 03/19/2021 9:14 PM EST 975 mg apixaban (Eliquis) tablet 5 mg Given 03/20/2021 [...] 10 mg, Rectal, DAILY PRN, Starting on 03/16/21 at 1 108, Until Thu03/20/21 at 1712, Constipation, Routine calcium carbonate (Tums) chewable tablet Given 03/18/2021 8:08 A M EST 1,000 mg 500-1,000 mg 500-1,000 mg, Oral, EVERY 4 HOURS PRN, Starting on Thu03/18/21 at 0728, Until Thu03/20/21 at 1712, Heartburn, Give 500 mg (1 tablet) for mild to moderate heartburn. Give 1,000 mg (2 tablets) for severe heartburn., Routine HYDROmorphone (Dilaudid) (1 mg/mL) injection Given 2:05 [...] and other as needed pain medications., Routine levothyroxine (Synthroid) tablet 88 mcg Given 03/20/2021 [...] 5% patch lidocaine (Xylocaine) 1% (10 mg/mL) inje ction 3 mg 3 mg (0.3 mL), Subcutaneous, ONCE PRN, 1 dose, Startin g on Thu03/15/21 at 0937, Until Thu03/20/21 at 1712, for discomfort with PIV ins ertion, Routine magnesium citrate oral liquid 296 mL 296 mL, Oral, DAILY PRN, Starting on Thu03/18/21 at 17 28, Until Thu03/20/21 at 171, Constipation, Administer if no bow el movement [...] 4 hours., Routine melatonin tablet 9 mg Given 03/19/2021 9:18 PM EST 9 mg 9 mg, Oral, NIGHTLY PRN, Starting on Gisella 03/14/21 at 1653, Until Thu03/20/21 at 1712, insomnia, Routine Given 03/18/2021 9:02 PM EST 9 mg Given 03/18/2021 12:19 AM EST 9 mg ondansetron (pf) (Zofran) (2 mg/mL) inje [...] EST 5 mg pantoprazole EC (Protonix) tablet 40 mg Given 03/20/2021 9:36 AM EST 40 mg 40 mg, Oral, DAILY, First dose (after last modification) on Thu03/18/21 at 0900, Until Discontinued Given 03/19/2021 8:43 AM EST 40 mg Given 03/18/2021 8:08 AM EST 40 mg polyethylene glycoL (Miralax) packet 17 g Given [...] Given 03/13/2021 1:18 AM EST 40 mEq senna-docusate (Pericolace) 8.6-50 mg per Given 2021 [...] Cristina Lozano RN)0843 (Given - Provider: Rosita Patel, JOSE ELIAS)1619 (Given - Provider: Rosita Patel RN - Comment: PT team.)2113 (Given - Provider: Charlene Concepcion RN) 031 (Given - Provider: Charlene Modi RN)0936 (Given - Provider: Carolina Bullard RN) 975 mg, Oral, EVERY 6 HOURS, First dose on Thu03/12/21 at 1730, Until Discontinued, Administer for temperature greater than or equal to 38.2 degrees celsius. Maximum daily dose of acetaminophen from all 1419 (MAR Unhold - Provider: Admin Adt)1451 (Given - Provider: Angelita Liu RN)210 (Given - Provider: Cristina Lozano RN) sources not to exceed 4,000 mg. When or dered for pain, acetaminophen should be given even when other ordered pain medications are indicated., Routine apixaban (Eliquis) tablet 5 mg 1758 (Given - Provider: Bee Kaplan RN) 0843 (Given - Provider: Rosita Patel, JOSE ELIAS)2114 (Given - Provider: Charlene Concepcion RN) 0936 (Given - Provider: Carolina Bullard RN) 5 mg, Oral, 2 TIMES DAILY, First dose on Thu03/18/21 at 1800, Until Discontinued, Anticoagulant, Routine bisacodyL (Dulcolax) suppository 10 mg 0900 (Not Given - Provider: Rosita Patel RN - Reason: Patient/family refused)1035 (APR Hold - Provider: Admin Adt - Reason: Transfer to a Procedural area)1419 (MAR Unhold - Provider: Admin Adt) 1050 (Given [...] - Reason: Transfer to a Procedural area)1419 (MAR Unhold - Provider: Admin Adt) 0541 (Given [...] Adt) 0600 (Patch Removed - Provider: Cristina Lozano RN) 0600 (Patch Not Removed (add comment) - [...] (Given - Provider: Rosita Patel, JOSE ELIAS) 0936 (Given - Provider: Carolina Bullard RN) 40 mg, Oral, DAILY, First dose (after la st modification) on Thu03/18/21 at 0900, Until Discontinued polyethylene glycoL (Miralax) packet 17 g 0900 (Not Gi luis - Provider: Rosita Patel RN - Reason: Patient/family refused)1035 (APR Hold - Provider: Admin Adt - Reason: Transfer to a Procedural area)1419 (APR Unhold - Provider: Admin Adt) 0843 (Given - Provider: Rosita Patel RN) 09 (No t Given - Provider: Carolina Bullard [...] Rosita Patel RN)2113 (Given - Provider: Charlene Modi RN) 0936 (Given - Provider: Carolina Bullard RN) 2 tablet, Oral, 2 TIMES DAILY, First dos e on Thu03/14/21 at 2100, Until Discontinued, Routine sodium chloride 0.9 % (flush) (BD PosiFlush Normal Nir ine 0.9) flush 5 mL 0900 (Given - Provider: Rosita Patel RN)2107 (Given - Provider: Cristina Lozano RN) 08 (Given - Provider: Rosita Patel RN)2114 (Given - Provider: Charlene Concepcion, JOSE ELIAS) 09 (Not Given - Provider: Carolina Bullard RN [...] Procedural area)141 (APR Unhold - Provider: Admin Adt)2107 (Given - [...] 03/20/2021 bisacodyL (Dulcolax) suppository 10 mg 1035 ([facility] Hold - Provider: Admin Adt - Reason: Transfer to a Procedural area)1419 ([facility] Unhold - Provider: Admin Adt) 10 mg, Rectal, DAILY PRN, Starting on Sa t 03/16/21 at 1108, Until Thu03/20/21 at 1712, Constipation, Routine calcium carbonate (Tums) chewable tablet 500 mg (CANCE LED) 0408 (Given - Provider: Cristina Lozano, JOSE ELIAS) 500 mg, Oral, DAILY PRN, Starting on 03/16/21 at 1322, Until 03/18/21 at 0731, Heartburn, Routine calcium carbonate (Tums) chewable tablet 500-1,000 mg 0808 (Given - Provider: Bee Kaplan RN)1035 ([facility] Hold - Provider: Admin Adt - Reason: Transfer to a Procedural area)1419 ([facility] Unhold - Provider: Admin Adt) 500-1,000 mg, Oral, EVERY 4 HOURS PRN, S tarting on Thu03/18/21 at 0728, Until Thu03/20/21 at 1712, Heartburn, Give 500 mg (1 tablet) for mild to moderate heartburn. Give 1,000 mg (2 tablets) for severe heartburn., Routine HYDROmorphone (Dilaudid) (1 mg/mL) injection syringe 0 .2 mg(Linked Group 2) 1035 ([facility] Hold - Provider: Admin Adt - Reason: Transfer to a Procedural area)1209 (See Alternative - Provider: Laura Cartagena RN)1419 ([facility] Unhold - Provider: Admin Adt) [...] syringe 0 .4 mg(Linked Group 2) 1035 (APR Hold - Provider: Admin Adt - Reason: Transfer to a Procedural area)1209 (Given - Provider: Laura Cartagena RN)1419 (APR Unhold - Provider: Admin Adt) 0.4 mg, [...] (See Alternative - Provider: Laura Cartagena RN)1419 ([facility] Unhold - Provider: Admin Adt) 0.6 mg, [...] area)1419 (APR Unhold - Provider: Admin Adt) 3 mg (0.3 mL), Subcutaneous, ONCE PRN, 1 dose, Starting on Thu03/15/21 at 0937, Until Thu03/20/21 at 1712, for discomfort with PIV insertion, Routine magnesium citrate oral liquid 296 mL 296 mL, Oral, DAILY PRN, Starting on Thu03/18/21 at 1728, Until Thu03/20/21 at 1712, Constipation, [...] 0019 (Given - Provider: Hannah Lozano RN)1035 ([facility] Hold - Provider: Admin Adt - Reason: Transfer to a Procedural area)1419 ([facility] Unhold - Provider: Admin Adt)210 (Given - Provider: Cristina Lozano RN) 2118 (Given - Provider: Charlene Concepcion RN) 9 [...] tablet 10 mg(Linked Group 4) 10 35 (APR Hold - Provider: Admin Adt - Reason: Transfer to a Procedural area)1419 (APR Unhold - Provider: Admin Adt) 1049 (Given - Provider: Sydnie lee RN)2240 (See Alternative - Provider: Charlene Concepcion RN) 0546 (See Alternative - Provider: Charlene Concepcion RN) 10 mg, Oral, EVERY 4 HOURS PRN, Starting on Thu03/12/21 at 1644, Until Thu03/20/21 at 1712, Pain, severe pain (7-10), Routine oxyCODONE (Roxicodone) tablet 5 mg(Linked Group 4) 103 5 ([facility] Hold - Provider: Admin Adt - Reason: Transfer to a Procedural area)1419 ([facility] Unhold - Provider: Admin Adt) 1049 (See Alternative - Provider: Sheila Meredith RN)2240 (Given - Provider: Charlene Concepcion RN) 0546 (Given - Provider: Charlene Concepcion RN) 5 mg, Oral, EVERY 4 HOURS PRN, Starting on Thu03/12/21 at 1644, Until Thu03/20/21 at 1712, Pain, moderate pain (4-6), Routine potassium bicarbonate (Effer-K) effervescent tablet 20 -60 mEq 1035 (APR Hold - Provider: Admin Adt - Reason: Transfer to a Procedural area)1419 ([facility] Unhold - Provider: Admin Adt) 20-60 mEq, Per NG tube, EVERY 4 HOURS DE N, Starting on Thu03/13/21 at 0104, Until [...] EVERY 24 HOURS, Fi rst dose on Gisella 03/14/21 at 1800, Until Discontinued
Apply patch(es) for [...] Routine documented in this encounter Care Teams Kitchen Hand Relationship Specialty Start Date End Date None PCP - General 03/12/21 04/25/21 None documented as of this encounter
--- OUTSIDE RECORDS SUMMARY | 2022-01-27 16:05 | XMS_ITS | Encounter Summary ---
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 Procedures EMERGENCY IPI Referral ID Status Reason Start Date Expiration Date Visits Requ ested Visits Authorized [id number] 1 1 Encounter Details Date Type Department Care Team Description 03/14/2021 Anesthesia Event Main Operating Room Heber Aguillon MD [facility] [place] [address] [facility] [place] [address] Anesthesia Record Procedure Summary Procedure Name Responsible Anesthesia Start Anesthesia Stop Anesthesiologist Time Time DEBRIDEMENT PEDRO, Heber Caruso MD 03/14/21 0812 0930 SUBCU, MUSCLE, LOWER EXTREMITY (WRVU 2.7) (Right) Events Date Time Event Comment 03/14/2021 0744 0812 AN Verify 0812 Start 0812 An Start Data 0822 An Induction 0825 An Intubation 0833 Anesthesia Ready 0916 Extubation/LMA Out 0921 an stop data 0930 Recovery or ICU Handoff Patient care was transferred to the destination unit staff after review of the patient's medica l history, current anesthetic/surgi emilee status and plan, according to the Provider Handoff Checklist. 0930 Stop Name Total fentaNYL 100 mcg IV Lidocaine 60 mg Propofol 200 mg PHENYLephrine 80 mcg Ondansetron 4 mg ceFAZolin 2 g heparin (porcine) 50 units/mL in sodium chloride 0.45% 500 mL infusion 0 Units Lactated Ringers 100 mL Agents Name O2 Air N2O Sevoflurane (et) Blood No blood administrations on file. Lines, Drains, and Airways Type Details Placement Removal Incision 03/12/21; 1226; Right; 03/12/21 1226 by neck; non-laparascopic Mary Dorman RN puncture Incision 03/12/21; 1529; Right, 03/12/21 1529 by lower, medial; leg Mary Dorman RN Incision 03/12/21; 1529; Right, 03/12/21 1529 by lower, lateral; leg Mary Dorman RN PIV 03/12/21; median cubital 03/12/21 0000 by 1211 by vein (antecubital Deng, Varun Alarcon C, Karlie De La Torre V, SYSTEMS ARCHITECTURE ANALYST fossa), right; RN [id number] catheter system; Anatomical Landmarks; 18 gauge; from OSH; distraction; 03/20/21; 1211 Urethral Catheter 03/12/21; 1123; Surgery 03/12/21 1123 by 03/16 1040 by longer than 2 hours; Celia Viera RN Trevi no, Chani Stack, RN indwelling catheter with core temperature probe; 14; inserted at this facility (inserted without difficulty, clear yellow return); 1; drainage bag to dependent drainage; urethral catheter removed, tubing intact; 03/16/21; 1040 Arterial Line 03/12/21; 1140; radial 03/12/21 1140 by 03/14/21 1752 by artery, right; 20 gauge; Nilda Tineo CRNA Tre vino, Bess A, RN Anatomical Landmarks; continuous blood pressure monitoring, frequent blood gas measurement; Dr Akins; Sterile Prep, Sterile Gloves; pressure held 10 minutes, gauze and tegaderm applied; catheter intact, no longer indicated; 03/14/21; 1752 PIV 03/12/21; 1150; cephalic 03/12/21 1150 by 1211 by vein (lateral side of Nilda Tineo, Karlie Hoskins V, SYSTEMS ARCHITECTURE ANALYST arm), left; [id number] catheter system; Anatomical Landmarks; 14 gauge; 03/20/21; 1211 Incision 03/12/21; 1226; Right; 03/12/21 1226 by 05/03/21 1033 by groin; LDA not present Celia Viera, RN Lauren James, RN upon assessment; 05/03/21; 1033 Drain/Device Site 03/12/21; 1550; Right; 03/12/21 1550 by 1136 by anterior; thigh; Mary Dorman, Elvis Bishop, collapsible closed RN device; ; Sterile prep and drape; 19 Fr Kenton drain; 03/18/21; 1136 Supraglottic Mask Ventilation: Not 03/14/21 0830 by 03/14/21 0921 by Attempted (0); LMA Type: Susie Segura MD Ja ckson, Sarah F, MD iGel; LMA Size: 4; Inserted by: matt NPWT 03/14/21; 0859; Right, 03/14/21 0859 by 03/18/21 1113 by lower, lateral; leg; Mary Dorman RN Hendee, Danielle L, 03/18/21; 1113 RN documented in this encounter Social History Tobacco Use Types Packs/Day Years Used Date Smoking Tobacco: Former Smokeless Tobacco: Never Alcohol Use Standard Drinks/Week Comments Not Currently 0 (1 standard drink = 0.6 oz pure alcoho l) about once a month Sex Assigned at Date Recorded Not on file documented as of this encounter OR Notes Anesthesia Postprocedure Evaluation - Susie Segura MD - 03/14/2021 9:32 AM EST Department of Anesthesiology Post-procedure Note Patient: Zander Waldron Procedure Summary Date: 03/14/21 Room / Location: [facility] OR [address] [place] [address] MAIN OR Anesthesia Start: 811 Anesthesia Stop: 929 Procedure: DEBRIDEMENT SKIN, SUBCU, MUSCLE, LOWER EXTREMITY (WRVU 2.7) (Right ) Diagnosis: (right leg fasciotomy) Surgeons: Deonte De Los Santos MD Responsible Provider: Cooper Escobedo MD Anesthesia Type: general ASA Status: 3 All Anesthesia Providers: Anesthesiologist: Cooper Escobedo MD Classifier Tender: Susie Segura MD Vitals Value Taken Time BP Temp Pulse 74 03/14/21 0931 Resp 20 03/14/21 0931 SpO2 100 % 03/14/21930 Pain Level Vitals shown include unvalidated device data. Patient Location: PACU/[facility] Level of Consciousness: Awake and Alert Pain Management: Satisfactory Analgesia PONV: None Cardiovascular Status: At Baseline Respiratory Status: At Baseline Postoperative Fluid Status: Intravascular EUvolemia Possible Anesthetic Complications: NONE apparent at time of evaluation Final Primary Anesthesia Type: General (The anesthetic type performed was the same as planned.) Comments: Anesthesia Preprocedure Evaluation - Susie Segura MD - 03/14/2021 7:11 AM EST Pre-Anesthesia Evaluation for: Zander Waldron a 60 y.o. male. Procedure(s): DEBRIDEMENT SKIN, SUBCU, MUSCLE, LOWER EXTREMITY (WRVU 2.7) Patient Active Problem List Diagnosis ??? IVC [...] 3.66) performed by Rc Carrasquillo MD at [facility] ENDOSCOPY ??? PRO COLONOSCOPY, DIAGNOSTIC N/A 03/11/2021 COLONOSCOPY, DIAGNOSTIC performed by Titi Stroud MD at [facility] ENDOSCOPY ??? PRO COLONOSCOPY, FLEX, W/DIR SUBMUC INJECT N/A 05/07/2020 COLONOSCOPY WITH DIRECTED SUBMUCOSAL INJ (WRVU 3.66) performed by Rc Carrasquillo MD at [facility] ENDOSCOPY ??? PRO COLONOSCOPY, REMV LESN, SNARE N/A 12/11/2016 COLONOSCOPY, POLYPECTOMY, REMOVAL LESION BY SNARE (WRVU 4.67) performed by Jewels Wilkerson MD at [facility] ENDOSCOPY ??? PRO COLONOSCOPY, REMV LESN, SNARE N/A 05/07/2020 COLONOSCOPY, POLYPECTOMY, REMOVAL LESION BY SNARE (WRVU 4.67) performed by Rc Carrasquillo MD at [facility] ENDOSCOPY ??? PRO DECOMPRESS ANT/LAT+POST LEG CMPART Right 03/12/2021 FASCIOTOMY, LOWER LEG, ALL COMPARTMENTS -TIFFANY (WRVU 7.82) performed [facility] ??? PRO HEMORRHOIDECTOMY, INT/EXT, COMPLX N/A 10/28/2016 HEMORRHOIDECTOMY, INTERNAL & EXTERNAL, COMPLEX (WRVU 6.73) [facility] ? ? PRO INSERT VENA CAVA FILTER W/WO VASCULAR ACCESS AND RAD S&I N/A 03/12/2021 INSERT INTRAVASC VENA CAVA FILTER, ENDOVASCR APPR, WHEN PERFORMED (WRVU 4.71) performed by Steven Rodríguez MD at [facility] MAIN OR ??? PRO REMV VEIN CLOT CAVA-ILIAC, LEG INCIS Right 03/12/2021 THROMBECTOMY, VENA CAVA, ILIAC, FEMOROPOPLITEAL VEIN BY LEG INCISION (WRVU 13.37) performed by Steven Rodríguez MD at [facility] MAIN OR ??? PRO UPPER GI ENDOSCOPY, BIOPSY N/A 03/11/2021 EGD WITH BIOPSY (WRVU 2.49) performed by Titi Stroud MD at [facility] ENDOSCOPY ??? PRO UPPER GI ENDOSCOPY, DIAGNOSTIC N/A 05/07/2020 EGD, UPPER GI ENDOSCOPY performed by Rc Carrasquillo MD at [facility] ENDOSCOPY Social History Tobacco Use ??? Smoking status: Former Smoker ??? Smokeless tobacco: Never Used Substance Use Topics ??? Alcohol use: Not Currently Comment: about once a month Social History Substance and Sexual Activity Drug Use No No Known Allergies Medications: MAR and/or home medications have been reviewed. Physical Exam: Preprocedure Vitals Current as of 03/14/21 0711 BP: 107/75 Pulse: Resp: 19 SpO2: 94 Temp: 37.5 ??C (99.5 ??F) Height: 174 cm (5' 8.5) (03/13/21) Weight: 95.3 kg (210 lb) (03/13/21) BMI: 31.46 IBW: 69.6 kg (153 lb 5.6 oz) Last edited 03/14/21 0600 by LUZ ELENA Airway Assessment: Mallampati: I TM distance: >3 FB Neck ROM: full Cardiovascular Assessment: system normal Pulmonary Assessment: unlabored breathing Dental Assessment: Misc Assessment: Last Filed Perioperative Cognitive Screening None Anesthesia Plan: ASA 3 general, with a(n) intravenous induction 60 y.o. male 2 days post-op s/p IVC and R iliac vein thrombectomy scheduled for LLE debridement. 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 Anesthesia Screening documented in this encounter Plan of Treatment Not on filedocumented as of this encounter Visit Diagnoses Not on filedocumented in this encounter Administered Medications Inactive Administered Medications - up to 3 most recent administrations Medication Order MAR Action Action Date Dose Rate Site ceFAZolin (Ancef) 1 g in dextrose 5% Given 03/14/2021 8:30 AM ES T 2 g 50 mL infusion Intravenous, PRN, Starting on Gisella 03/14/21 at 0830, Until Gisella 03/14/21 at 0930, Administer over 30 Minutes, Anesthesia Intra-op fentaNYL (pf) (50 mcg/mL) multi-dose Given 03/14/2021 8:22 AM ES T 100 mcg injection Intravenous, PRN, Starting on Gisella 03/14/21 at 0822, Until Gisella 03/14/21 at 0930, Anesthesia Intra-op, Routine lactated ringers infusion New Bag 03/14/2021 8:12 AM EST Intravenous, CONTINUOUS PRN, Starting on Gisella 03/14/21 at 0812, Until Gisella 03/14/21 at 0930, Anesthesia Intra-op lidocaine (pf) (Xylocaine) (20 mg/mL) 2% Given 03/14/2021 8:22 A M EST 60 mg injection syringe Intravenous, PRN, Starting on Gisella 03/14/21 at 0822, Until Gisella 03/14/21 at 0930, Anesthesia Intra-op, Routine ondansetron (pf) (Zofran) (2 mg/mL) inje ction Given 03/14/2021 8:57 AM EST 4 mg Intravenous, PRN, Starting on Gisella 03/14/21 at 0857, Until Gisella 03/14/21 at 0930, Anesthesia Intra-op, Routine PHENYLephrine in NS (PF) (AMY-SYNEPHRINE) 0.8 Given 8:29 AM EST 80 mcg mg/10 mL (80 mcg/mL) multi-dose injection Syrg Intravenous, PRN, Starting on Gisella 03/14/21 at 0829, Until Gisella 03/14/21 at 0930, Anesthesia Intra-op, Routine propofoL (Diprivan) 10 mg/mL bolus injection Given 8:22 AM EST 200 mg (Anesthesia) Intravenous, PRN, Starting on Gisella 03/14/21 at 0822, Until Gisella 03/14/21 at 0930, Anesthesia Intra-op documented in this encounter Care Teams Cut Off Saw Set Up Operator Relationship Specialty Start Date End Date None PCP - General 03/12/21 04/25/21 None documented as of this encounter
--- OUTSIDE RECORDS SUMMARY | 2022-01-27 16:05 | XMS_ITS | Encounter Summary ---
:1960 Author Organization [facility] [place] [address] Care Team Providers Name Role Phone None [...] Expiration Date Visits Requ ested Visits Authorized [id number] 1 1 Encounter Details Date Type Department Care Team Description 03/14/2021 Surgery Main Operating Room Rosa De Los Santos se, MD DEBRIDEMENT SKIN, [facility], MUSCLE, [facility] DR EXTREMITY (WRVU 2.7) [facility] [place] [address] [place] [address] [phone] Social History Tobacco Use Types Packs/Day Years Used Date Smoking Tobacco: Former Smokeless Tobacco: Never Alcohol Use Standard Drinks/Week Comments Not Currently 0 (1 standard drink = 0.6 oz pure alcoho l) about once a month Sex Assigned at Date Recorded Not on file documented as of this encounter Last Filed Vital Signs Vital Sign Reading Time Taken Comments Blood Pressure 107/75 03/14/2021 6:00 AM EST Pulse 83 03/13/2021 10:00 PM EST Temperature 37.5 ??C (99.5 ??F) 03/14/2021 6:00 AM EST Respiratory Rate 19 03/14/2021 6:00 AM EST Oxygen Saturation 94% 03/14/2021 6:00 AM EST Inhaled Oxygen Concentration - - [...] Left common iliac vein stent placement (Express [id number], post-dilatedto 12mm); Left common and external iliac vein stent placement (Wallstent [id number]); US guided right internal jugular vein access; [...] for infrarenal IVC stenosis - predilated with [place] 14 mm balloon. IVC and R CIV stented with Venous WallStent 20 x 80 mm. Extended distally into R EIVA with Wallstent 20 x 80 mm. Postdilated with [place] 16 mm balloon. Completion angiogram with brisk [...] Left common iliac vein stent placement (Express [id number], post-dilated to 12mm), Left common and external iliac vein stent placement (Wallstent [id number]). IVC venogram revealed suprarenal IVC filter in place without clot burden within filter. IVC filter removal. Patient was re- admitted for post-operative monitoring. On 03/16/21, patient was transferred to the floor. On 03/18/20, patient underwent removal af L medial thigh LIZETTE drain and lateral fasciotomy incision closure. In surgery, wound vac with black sponge removed revealing healthy muscle and granulation tissue. Wallace and rubber band removed. Lateral fasciotomy incision [...] PM Twan Serna MD Vascular Surgery at [facility] Arrive at: Chief Inspector Area [phone] 04/26/2021 8:00 AM Avila Bai [place] Vascular Lab at [facility] Arrive at: Chief Inspector Area [phone] 04/26/2021 10:15 AM Marlene Rodríguez MD Vascular Surgery at [facility] Arrive at: Chief Inspector Area [phone] 06/07/2021 10:00 AM Natacha Velásquez MD Hematology and Oncology at [facility] Arrive at: Chief Inspector Area [phone] 06/28/2021 11:00 AM Natacha Velásquez MD Hematology and Oncology at [facility] Arrive at: Chief Inspector Area [phone] Future Orders Complete By Expires Duplex Study for DVT, Bilat legs [VAS40 Custom] 04/19/2021 10/19/2021 Process Instructions: There is no in-house vascular slab off mill tender available on weeknights (5pm-8am), weekends, or holidays. IF THIS IS A REQUEST FOR AN EMERGENT STUDY DURING THOSE HOURS, please have the senior provider responsible for the patient page the Vascular Surgery Fellow/Senior Resident client application support engineer to discuss options. Scheduling Instructions: Questions: Indication for study/signs & symptoms: s/p thrombectomy and stenting of IVC, R CIV and R EIV Question to be answered: Patency? New/worsening DVT? Preferred location?: [facility] Clinics Duplex Study IVC/Iliac, Comp [VAS55 Custom] 04/19/2021 10/19/2021 Process Instructions: There is no in-house vascular slab off mill tender available on weeknights (5pm-8am), weekends, or holidays. IF THIS IS A REQUEST FOR AN EMERGENT STUDY DURING THOSE HOURS, please have the senior provider responsible for the patient page the Vascular Surgery Fellow/Senior Resident client application support engineer to discuss options. Scheduling Instructions: Questions: Indication for study/signs & symptoms: s/p thrombectomy and stenting of IVC, R CIV and R EIV Question to be answered: Patency? New/worsening DVT? Preferred location?: [facility] Referral to Gastroenterology [REF25 Custom] As directed Process Instructions: If requesting a colonoscopy please use [id number] AMB REFERRAL TO COLONOSCOPY PROCEDURE. This referral [...] Due to the OR limitations at the [facility], if you are considering surgery for thispatient, and their BMI is greater than 50, please refer to [facility] (or a division other than [facility]). Scheduling Instructions: Questions: Are you seeking Vascular Access?: No My question or request is: Inguinal Hernias Referral to Home Health - at DISCHARGE [OGV0958 CPT(R)] As directed Process Instructions: Scheduling Instructions: Comments: DOCUMENTATION FOR VNA SERVICES (INCLUDING THOSE PATIENTS WITH MEDICARE COVERAGE REQUIRING HOME VNA SERVICES AND/OR HOSPICE SERVICES) PATIENT'S LOCATION: Amilcar Pate [address] [facility] [address] (home) Cell: Telephone Information: Escort Patients's Name: Jun In discussion with the attending physician, it is certified that this patient is under their care and that they, or a Nurse Practitioner,Clinical Nurse specialist or Physician Licensed Direct Entry Midwife who is working directly with them, had [...] for managing ADL's. HOME HEALTH CARE AGENCY: [facility] [employer] PHONE: [phone] FAX: [phone] Start of care: Within 24 to 48 [...] noted Questions: [facility] post [facility]: [facility] What services [...] management of your inguinal hernia. Please call [phone] and ask to speak with the general surgery team if you do not hear regarding this appointment in 2 weeks from discharge. Additionally, you had lung findings that require follow-up CT imaging in 6-12 weeks by your primary care provider. A referral was placed to primary care at [facility] given your transition between providers.You should call [phone] if you do not hear regarding this referral. If you establish care with a different primary care provider in the interim, they may follow-up on your CT findings. For any problems or questions please call [phone] For issues on weeknights after 5pm and weekends please call [phone] and ask for the Vascular Fellow client application support engineer. TARAN Pineda 03/20/2021 documented in this encounter Discharge Instructions Discharge InstructionsLauren Nielsen RN - 03/15/2021 11:14 AM EST [facility] Vascular and Interventional Radiology Discharge Instructions For [...] is during regular office hours, please call [phone]. If it is after regular office hours, oron weekends or holidays, please call [phone] and ask to speak to the Screen Printing Supervisor on callfor Interventional Radiology. You have received [...] management of your inguinal hernia. Please call [phone] and ask to speak with the general surgery team if you do not hear regarding this appointment in 2 weeks from discharge. Additionally, you had lung findings that require follow-up CT imaging in 6-12 weeks by your primary care provider. A referral was placed to primary care at [facility] given your transition between providers.You should call [phone] if you do not hear regarding this referral. If you establish care with a different primary care provider in the interim, they may follow-up on your CT findings. For any problems or questions please call [phone] For issues on weeknights after 5pm and weekends please call [phone] and ask for the Vascular Fellow client application support engineer. documented in this encounter Medications at Time [...] E entrance via w/c. VNA called. See Ed H. Dongsun Aleah RN Devi Bai PT - 03/20/2021 10:29 AM EST 03/20/21 1025 Evaluation & Treatment Document Type contact Total Minutes, Physical Therapy 0 Comment, Session Not Performed Met with pt, issued exercise handouts, pt had already ambulated a full lap on the unit. Plan for d/c today with home services. Pt feeling much more confident about discharge. Hector Rosado - 03/20/2021 10:11 AM EST Graduate Student Encounter Note Patient Name: Amilcar Pate : [id number] MR#: [id number] Admit Date: 03/12/2021 4:45 AM Hospital Day [...] on 03/12/2021 with PMH hypothyroidism??and??GERD??who presented??to the [facility] ED in transfer from [facility] with a mottled, cool RLE and was transferred to [facility] on a heparin gtt. The patient previously had a COVID infection on 02/26 and developedbilateral iliofemoral DVT on 02/21 for which he was started on Eliquis. His Eliquis was held for an EGD with biopsy on 03/11 at [facility]. On arrival to [facility], he was noted to have a five-hour [...] 3.66) performed by Rc Carrasquillo MD at [facility] ??? PRO COLONOSCOPY, DIAGNOSTIC N/A 03/11/2021 COLONOSCOPY, DIAGNOSTIC performed by Titi Stroud MD at [facility] ??? PRO COLONOSCOPY, FLEX, W/DIR SUBMUC INJECT N/A 05/07/2020 COLONOSCOPY WITH DIRECTED SUBMUCOSAL INJ (WRVU 3.66) performed by Rc Carrasquillo MD at [facility] ??? PRO COLONOSCOPY, REMV LESN, SNARE N/A 12/11/2016 COLONOSCOPY, POLYPECTOMY, REMOVAL LESION BY SNARE (WRVU 4.67) performed by Jewels Wilkerson MD at [facility] ??? PRO COLONOSCOPY, REMV LESN, SNARE N/A 05/07/2020 COLONOSCOPY, POLYPECTOMY, REMOVAL LESION BY SNARE (WRVU 4.67) performed by Rc Carrasquillo MD at [facility] ? ? PRO DEBRIDEMENT MUSCLE AND FASCIA 20 SQ CM/< Right 03/14/2021 DEBRIDEMENT SKIN, SUBCU, MUSCLE, LOWER EXTREMITY (WRVU 2.7) performed by Deonte De Los Santos MD at [facility] ? ? PRO DEBRIDEMENT SUBCUTANEOUS TISSUE 20 SQCM/< Right 03/18/2021 DEBRIDEMENT SKIN AND SUBCU, LOWER EXTREMITY (WRVU 1.01) performed by Lukasz Patterson MD at [facility] ??? PRO DECOMPRESS ANT/LAT+POST LEG CMPART Right 03/12/2021 FASCIOTOMY, LOWER LEG, ALL COMPARTMENTS -TIFFANY (WRVU 7.82) performed [facility] ??? PRO HEMORRHOIDECTOMY, INT/EXT, COMPLX N/A 10/28/2016 HEMORRHOIDECTOMY, INTERNAL & EXTERNAL, COMPLEX (WRVU 6.73) performed by Matt Sullivan MDat [facility] ? ? PRO INSERT VENA CAVA FILTER W/WO VASCULAR ACCESS AND RAD S&I N/A 03/12/2021 INSERT INTRAVASC VENA CAVA FILTER, ENDOVASCR APPR, WHEN PERFORMED (WRVU 4.71) performed by Marlene Rodríguez MD at [facility] ??? PRO REMV VEIN CLOT CAVA-ILIAC, LEG INCIS Right 03/12/2021 THROMBECTOMY, VENA CAVA, ILIAC, FEMOROPOPLITEAL VEIN BY LEG INCISION (WRVU 13.37) performed by Marlene Rodríguez MD at [facility] ??? PRO UPPER GI ENDOSCOPY, BIOPSY N/A 03/11/2021 EGD WITH BIOPSY (WRVU 2.49) performed by Titi Stroud MD at [facility] ??? PRO UPPER GI ENDOSCOPY, DIAGNOSTIC N/A 05/07/2020 EGD, UPPER GI ENDOSCOPY performed by cR Carrasquillo MD at [facility] Social History: Lives with His [...] Therapy: (P) 58 DEVI KOROMA, PT Pager: [phone] Physical Therapy Inpatient Rehabilitation Department Hector Elkins - 03/19/2021 2:49 PM EST Graduate Student Encounter Note Patient Name: Amilcar Pate : [id number] MR#: [id number] Admit Date: 03/12/2021 4:45 AM Hospital Day [...] spiritual support and listening and encouraging presence. Graduate Student services accepted. Conversation to build trusting relationship. Provided pastoral presence. Provided pastoral presence. Provided spiritual support. Follow-up: yes Time in Direct Care:30 Mins Hector Elkins 03/19/2021 Heather Stroud OT - 03/19/2021 11:22 AM EST Occupational Therapy Evaluation Patient profile: Amilcar Pate is a 60 y.o. male admitted on 03/12/2021 with PMH hypothyroidism and GERD who presented to the [facility] ED in transfer from [facility] with a mottled, cool RLE and was transferred to [facility] on a heparin gtt. The patient previously had a COVID infection on 02/26 and developed bilateral iliofemoral DVT on 02/21 for which he was started on Eliquis. His Eliquis was held for an EGD with biopsy on 03/11 at [facility]. On arrival to [facility], he was noted to have a five-hour [...] 3.66) performed by Rc Carrasquillo MD at [facility] ??? PRO COLONOSCOPY, DIAGNOSTIC N/A 03/11/2021 COLONOSCOPY, DIAGNOSTIC performed by Titi Stroud MD at [facility] ??? PRO COLONOSCOPY, FLEX, W/DIR SUBMUC INJECT N/A 05/07/2020 COLONOSCOPY WITH DIRECTED SUBMUCOSAL INJ (WRVU 3.66) performed by Rc Carrasquillo MD at [facility] ??? PRO COLONOSCOPY, REMV LESN, SNARE N/A 12/11/2016 COLONOSCOPY, POLYPECTOMY, REMOVAL LESION BY SNARE (WRVU 4.67) performed by Jewels Wilkerson MD at [facility] ??? PRO COLONOSCOPY, REMV LESN, SNARE N/A 05/07/2020 COLONOSCOPY, POLYPECTOMY, REMOVAL LESION BY SNARE (WRVU 4.67) performed by Rc Carrasquillo MD at [facility] ? ? PRO DEBRIDEMENT MUSCLE AND FASCIA 20 SQ CM/< Right 03/14/2021 DEBRIDEMENT SKIN, SUBCU, MUSCLE, LOWER EXTREMITY (WRVU 2.7) performed by Deonte De Los Santos MD at [facility] ? ? PRO DEBRIDEMENT SUBCUTANEOUS TISSUE 20 SQCM/< Right 03/18/2021 DEBRIDEMENT SKIN AND SUBCU, LOWER EXTREMITY (WRVU 1.01) performed by Lukasz Patterson MD at [facility] ??? PRO DECOMPRESS ANT/LAT+POST LEG CMPART Right 03/12/2021 FASCIOTOMY, LOWER LEG, ALL COMPARTMENTS -TIFFANY (WRVU 7.82) performed by [facility] ??? PRO HEMORRHOIDECTOMY, INT/EXT, COMPLX N/A 10/28/2016 HEMORRHOIDECTOMY, INTERNAL & EXTERNAL, COMPLEX (WRVU 6.73) performed by Matt Sullivan MDat [facility] ? ? PRO INSERT VENA CAVA FILTER W/WO VASCULAR ACCESS AND RAD S&I N/A 03/12/2021 INSERT INTRAVASC VENA CAVA FILTER, ENDOVASCR APPR, WHEN PERFORMED (WRVU 4.71) performed by Marlene Rodríguez MD at [facility] ??? PRO REMV VEIN CLOT CAVA-ILIAC, LEG INCIS Right 03/12/2021 THROMBECTOMY, VENA CAVA, ILIAC, FEMOROPOPLITEAL VEIN BY LEG INCISION (WRVU 13.37) performed by Marlene Rodríguez MD at [facility] ??? PRO UPPER GI ENDOSCOPY, BIOPSY N/A 03/11/2021 EGD WITH BIOPSY (WRVU 2.49) performed by Titi Stroud MD at [facility] ??? PRO UPPER GI ENDOSCOPY, DIAGNOSTIC N/A 05/07/2020 EGD, UPPER GI ENDOSCOPY performed by Rc Carrasquillo MD at [facility] Social History: Patient lives with [...] instrument andmeasurable assessment of functional outcome. Pager: [phone] Heather Stroud OT 03/19/2021 Occupational Therapy Rehabilitation [...] ??C (99 ??F)] Heart Rate: -- Resp: [-] BP: (108-142)/(76-88) SpO2: [93 %-97 %] Heart [...] for heartburn Bowel meds Continue therapeutic heparin ip Bilateral lower extremity SCDs, jose compression PT/OT, [...] Hector Rosado - 03/17/2021 1:28 PM EST Graduate Student Encounter Note Patient Name: Amilcar Pate : [id number] MR#: [id number] Admit Date: 03/12/2021 4:45 AM Hospital Day 5 days Narrative:Visited to introduce and assess acceptance of Graduate Student services. Patient was awake, alert, oriented and [...] spiritual support and listening and encouraging presence. Graduate Student services accepted. Conversation to build trusting relationship. [...] obstruction Relevant PMH: PMH hypothyroidism and GERD [facility] ED in transfer from [facility] on 03/12 early AM. The patient previously had a COVID infection on 02/26 and developed bilateral iliofemoral DVT on 02/21 for which he was started on Eliquis. His Eliquis was held for an EGD with biopsy on 03/11 at [facility]. This morning, he presented to [facility] with a mottled, cool RLE and was transferred to [facility] on a heparin gtt. On arrival to [facility], he was noted to have a five-hour [...] with updates Consults: PT [] OT [] MACHINE REPAIRMAN [] Psych [] Action List Q4 VS [...] Therapy Inpatient Rehab Estuardo Urrutia PT Pager [phone] John Baron MD - 03/15/2021 9:09 AM [...] Norma Mcmillan APRN Vascular Surgery Fellow pager [phone] 03/15/2021 ASA: 2 Mal: 3 Cr Lab [...] available/appropriate; social history includes: pt lives in [place], [place] in a 2 and a half story home [address]; bedroom and bathroom on floor w tub shower; baseline independent and worked; lives w pt and volunteers Chani Longo RN - 03/14/2021 4:57 PM EST Illness Severity [x] Stable [] Watcher [] Unstable Patient Summary Reason for admission: IVC obstruction Relevant PMH: PMH hypothyroidism and GERD [facility] ED in transfer from [facility] on 03/12 early AM. The patient previously had a COVID infection on 02/26 and developed bilateral iliofemoral DVT on 02/21 for which he was started on Eliquis. His Eliquis was held for an EGD with biopsy on 03/11 at [facility]. This morning, he presented to [facility] with a mottled, cool RLE and was transferred to [facility] on a heparin gtt. On arrival to [facility], he was noted to have a five-hour [...] venogram. Remains on heparin gtt, next UFH [id number]. WCM Neuro: WDL ex. Headache Cardiac:WDL NSR [...] with updates Consults: PT [] OT [] MACHINE REPAIRMAN [] Psych [] Action List Q2 virals [...] of : 1960 AGE: 60 y.o. Address: [address] [place] [phone] (home) Mobile: Telephone Information: Referring Provider: Rosemary [...] 3.66) performed by Rc Carrasquillo MD at [facility] ??? PRO COLONOSCOPY, DIAGNOSTIC N/A 03/11/2021 COLONOSCOPY, DIAGNOSTIC performed by Titi Stroud MD at [facility] ??? PRO COLONOSCOPY, FLEX, W/DIR SUBMUC INJECT N/A 05/07/2020 COLONOSCOPY WITH DIRECTED SUBMUCOSAL INJ (WRVU 3.66) performed by Rc Carrasquillo MD at [facility] ??? PRO COLONOSCOPY, REMV LESN, SNARE N/A 12/11/2016 COLONOSCOPY, POLYPECTOMY, REMOVAL LESION BY SNARE (WRVU 4.67) performed by Jewels Wilkerson MD at [facility] ??? PRO COLONOSCOPY, REMV LESN, SNARE N/A 05/07/2020 COLONOSCOPY, POLYPECTOMY, REMOVAL LESION BY SNARE (WRVU 4.67) performed by Rc Carrasquillo MD at [facility] ??? PRO DECOMPRESS ANT/LAT+POST LEG CMPART Right 03/12/2021 FASCIOTOMY, LOWER LEG, ALL COMPARTMENTS -TIFFANY (WRVU 7.82) performed by [facility] ??? PRO HEMORRHOIDECTOMY, INT/EXT, COMPLX N/A 10/28/2016 HEMORRHOIDECTOMY, INTERNAL & EXTERNAL, COMPLEX (WRVU 6.73) performed by Matt Sullivan MDat [facility] ? ? PRO INSERT VENA CAVA FILTER W/WO VASCULAR ACCESS AND RAD S&I N/A 03/12/2021 INSERT INTRAVASC VENA CAVA FILTER, ENDOVASCR APPR, WHEN PERFORMED (WRVU 4.71) performed by Marlene Rodríguez MD at [facility] ??? PRO REMV VEIN CLOT CAVA-ILIAC, LEG INCIS Right 03/12/2021 THROMBECTOMY, VENA CAVA, ILIAC, FEMOROPOPLITEAL VEIN BY LEG INCISION (WRVU 13.37) performed by Marlene Rodríguez MD at [facility] ??? PRO UPPER GI ENDOSCOPY, BIOPSY N/A 03/11/2021 EGD WITH BIOPSY (WRVU 2.49) performed by Titi Stroud MD at [facility] ??? PRO UPPER GI ENDOSCOPY, DIAGNOSTIC N/A 05/07/2020 EGD, UPPER GI ENDOSCOPY performed by Rc Carrasquillo MD at [facility] Date/Procedure Meds Given/Comments 03/15/21 LLE [...] Delilah Sanchez MD Vascular Surgery Fellow pager [phone] 03/14/2021 Active Hospital Problems Diagnosis ??? IVC [...] of increasing of pain and tenderness in MD WIN notified. PLAN MOVING FORWARD: Discharge planning Q2 [...] team Sachi Ford Vascular Surgery Fellow pager [phone] 03/13/2021 Active Hospital Problems Diagnosis ??? IVC [...] and Physical Patient Name: Amilcar Pate MR: [id number] : [id number] CC: 60 y.o. Male HISTORY OF PRESENT ILLNESS: Amilcar Pate is a 60 y.o. male with PMH hypothyroidism and GERD who presented to the [facility] ED in transfer from [facility] on 03/12 early AM. The patient previously had a COVID infection on 02/26 and developed bilateral iliofemoral DVT on 02/21 for which he was started on Eliquis. His Eliquis was held for an EGD with biopsy on 03/11 at [facility]. This morning, he presented to [facility] with a mottled, cool RLE andwas transferred to [facility] on a heparin gtt. On arrival to [facility], he was noted to have a five-hour [...] 3.66) performed by Rc Carrasquillo MD at [facility] ??? PRO COLONOSCOPY, DIAGNOSTIC N/A 03/11/2021 COLONOSCOPY, DIAGNOSTIC performed by Titi Stroud MD at [facility] ??? PRO COLONOSCOPY, FLEX, W/DIR SUBMUC INJECT N/A 05/07/2020 COLONOSCOPY WITH DIRECTED SUBMUCOSAL INJ (WRVU 3.66) performed by Rc Carrasquillo MD at [facility] ??? PRO COLONOSCOPY, REMV LESN, SNARE N/A 12/11/2016 COLONOSCOPY, POLYPECTOMY, REMOVAL LESION BY SNARE (WRVU 4.67) performed by Jewels Wilkerson MD at [facility] ??? PRO COLONOSCOPY, REMV LESN, SNARE N/A 05/07/2020 COLONOSCOPY, POLYPECTOMY, REMOVAL LESION BY SNARE (WRVU 4.67) performed by Rc Carrasquillo MD at [facility] ??? PRO HEMORRHOIDECTOMY, INT/EXT, COMPLX N/A 10/28/2016 HEMORRHOIDECTOMY, INTERNAL & EXTERNAL, COMPLEX (WRVU 6.73) performed by Matt Sullivan MDat [facility] ??? PRO UPPER GI ENDOSCOPY, BIOPSY N/A 03/11/2021 EGD WITH BIOPSY (WRVU 2.49) performed by Titi Stroud MD at [facility] ??? PRO UPPER GI ENDOSCOPY, DIAGNOSTIC N/A 05/07/2020 EGD, UPPER GI ENDOSCOPY performed by Rc Carrasquillo MD at [facility] ALLERGIES: No Known Allergies MEDICATIONS: [...] hypothyroidism and GERD who presented to the [facility] ED in transfer from [facility] with five hours of acute RLE pain [...] Charles MD - 03/12/2021 9:37 AM EST [facility] Department of Surgery Inpatient Consult Note [...] 3.66) performed by Rc Carrasquillo MD at [facility] ??? PRO COLONOSCOPY, DIAGNOSTIC N/A 03/11/2021 COLONOSCOPY, DIAGNOSTIC performed by Titi Stroud MD at [facility] ??? PRO COLONOSCOPY, FLEX, W/DIR SUBMUC INJECT N/A 05/07/2020 COLONOSCOPY WITH DIRECTED SUBMUCOSAL INJ (WRVU 3.66) performed by Rc Carrasquillo MD at [facility] ??? PRO COLONOSCOPY, REMV LESN, SNARE N/A 12/11/2016 COLONOSCOPY, POLYPECTOMY, REMOVAL LESION BY SNARE (WRVU 4.67) performed by Jewels Wilkerson MD at [facility] ??? PRO COLONOSCOPY, REMV LESN, SNARE N/A 05/07/2020 COLONOSCOPY, POLYPECTOMY, REMOVAL LESION BY SNARE (WRVU 4.67) performed by Rc Carrasquillo MD at [facility] ??? PRO HEMORRHOIDECTOMY, INT/EXT, COMPLX N/A 10/28/2016 HEMORRHOIDECTOMY, INTERNAL & EXTERNAL, COMPLEX (WRVU 6.73) performed by Matt Sullivan [facility] ??? PRO UPPER GI ENDOSCOPY, BIOPSY N/A 03/11/2021 EGD WITH BIOPSY (WRVU 2.49) performed by Titi Stroud MD at [facility] ??? PRO UPPER GI ENDOSCOPY, DIAGNOSTIC N/A 05/07/2020 EGD, UPPER GI ENDOSCOPY performed by Rc Carrasquillo MD at [facility] HOME MEDICATIONS: Current Facility-Administered Medications [...] PRN Titi Stroud MD 1 mg at 03/11/21 165 ??? [DISCONTINUED] diphenhydrAMINE (Benadryl) (50 mg/mL) injection [...] any questions regarding this consult, please page [phone] if you have any further questions. [x] [...] Charles MD - 03/12/2021 5:27 AM EST [facility] Department of Surgery Inpatient Consult Note [...] 3.66) performed by Rc Carrasquillo MD at [facility] ??? PRO COLONOSCOPY, DIAGNOSTIC N/A 03/11/2021 COLONOSCOPY, DIAGNOSTIC performed by Titi Stroud MD at [facility] ??? PRO COLONOSCOPY, FLEX, W/DIR SUBMUC INJECT N/A 05/07/2020 COLONOSCOPY WITH DIRECTED SUBMUCOSAL INJ (WRVU 3.66) performed by Rc Carrasquillo MD at [facility] ??? PRO COLONOSCOPY, REMV LESN, SNARE N/A 12/11/2016 COLONOSCOPY, POLYPECTOMY, REMOVAL LESION BY SNARE (WRVU 4.67) performed by Jewels Wilkerson MD at [facility] ??? PRO COLONOSCOPY, REMV LESN, SNARE N/A 05/07/2020 COLONOSCOPY, POLYPECTOMY, REMOVAL LESION BY SNARE (WRVU 4.67) performed by Rc Carrasquillo MD at [facility] ??? PRO HEMORRHOIDECTOMY, INT/EXT, COMPLX N/A 10/28/2016 HEMORRHOIDECTOMY, INTERNAL & EXTERNAL, COMPLEX (WRVU 6.73) performed by Matt Sullivan MDat [facility] ??? PRO UPPER GI ENDOSCOPY, BIOPSY N/A 03/11/2021 EGD WITH BIOPSY (WRVU 2.49) performed by Titi Stroud MD at [facility] ??? PRO UPPER GI ENDOSCOPY, DIAGNOSTIC N/A 05/07/2020 EGD, UPPER GI ENDOSCOPY performed by Rc Carrasquillo MD at [facility] HOME MEDICATIONS: Current Facility-Administered Medications [...] Titi Stroud MD 50 mcg at 03/11/21 1659 ??? [DISCONTINUED] midazolam (pf) (Versed) (1 mg/mL) multi-dose injection Once PRN Titi Stroud MD 1 mg at 03/11/21 165 ??? [DISCONTINUED] diphenhydrAMINE (Benadryl) (50 mg/mL) injection [...] any questions regarding this consult, please page [phone] if you have any further questions. [x] [...] Left common iliac vein stent placement (Express [id number], post-dilated to 12mm) - Left common and external iliac vein stent placement (Wallstent [id number]) - US guided right internal jugular vein [...] Left common iliac vein stent placement (Express [id number], post-dilated to 12mm), Left common and external iliac vein stent placement (Wallstent [id number]); - IVC venogram: suprarenal IVC filter in [...] was inserted and upsized to a 5 Sami sheath over a J-wire. A LLE venogram [...] to the proximal common iliac vein. A [place] 5x40mm balloon was used to dilate the struts, and when the balloon was deflated the sheath was advanced into the IVC. An Express [id number] balloon expandable stent was deployed in the [...] upsizedthe sheath to a 10Fr sheath. A 26u25mm wallstent was deployed in the left common [...] was performed with the above findings. The [employer] IVC filter retrieval systemwas opened and the [...] 3.66) performed by Rc Carrasquillo MD at [facility] ??? PRO COLONOSCOPY, DIAGNOSTIC N/A 03/11/2021 COLONOSCOPY, DIAGNOSTIC performed by Titi Stroud MD at [facility] ??? PRO COLONOSCOPY, FLEX, W/DIR SUBMUC INJECT N/A 05/07/2020 COLONOSCOPY WITH DIRECTED SUBMUCOSAL INJ (WRVU 3.66) performed by Rc Carrasquillo MD at [facility] ??? PRO COLONOSCOPY, REMV LESN, SNARE N/A 12/11/2016 COLONOSCOPY, POLYPECTOMY, REMOVAL LESION BY SNARE (WRVU 4.67) performed by Jewels Wilkerson MD at [facility] ??? PRO COLONOSCOPY, REMV LESN, SNARE N/A 05/07/2020 COLONOSCOPY, POLYPECTOMY, REMOVAL LESION BY SNARE (WRVU 4.67) performed by Rc Carrasquillo MD at [facility] ? ? PRO DEBRIDEMENT MUSCLE AND FASCIA 20 SQ CM/< Right 03/14/2021 DEBRIDEMENT SKIN, SUBCU, MUSCLE, LOWER EXTREMITY (WRVU 2.7) performed by Deonte De Los Santos MD at [facility] ? ? PRO DEBRIDEMENT SUBCUTANEOUS TISSUE 20 SQCM/< Right 03/18/2021 DEBRIDEMENT SKIN AND SUBCU, LOWER EXTREMITY (WRVU 1.01) performed by Lukasz Patterson MD at [facility] ??? PRO DECOMPRESS ANT/LAT+POST LEG CMPART Right 03/12/2021 FASCIOTOMY, LOWER LEG, ALL COMPARTMENTS -TIFFANY (WRVU 7.82) [facility] ??? PRO HEMORRHOIDECTOMY, INT/EXT, COMPLX N/A 10/28/2016 HEMORRHOIDECTOMY, INTERNAL & EXTERNAL, COMPLEX (WRVU 6.73) performed by Matt Sullivan MDat [facility] ? ? PRO INSERT VENA CAVA FILTER W/WO VASCULAR ACCESS AND RAD S&I N/A 03/12/2021 INSERT INTRAVASC VENA CAVA FILTER, ENDOVASCR APPR, WHEN PERFORMED (WRVU 4.71) performed by Marlene Rodríguez MD at [facility] ??? PRO REMV VEIN CLOT CAVA-ILIAC, LEG INCIS Right 03/12/2021 THROMBECTOMY, VENA CAVA, ILIAC, FEMOROPOPLITEAL VEIN BY LEG INCISION (WRVU 13.37) performed by Marlene Rodríguez MD at [facility] ??? PRO UPPER GI ENDOSCOPY, BIOPSY N/A 03/11/2021 EGD WITH BIOPSY (WRVU 2.49) performed by Titi Stroud MD at [facility] ??? PRO UPPER GI ENDOSCOPY, DIAGNOSTIC N/A 05/07/2020 EGD, UPPER GI ENDOSCOPY performed by Rc Carrasquillo MD at [facility] No Known Allergies Social History [...] who have questions please contact the health manager career that requested your imaging first. Venogram Vascular [...] who have questions please contact the health manager career that requested your imaging first. Venogram Abdomen & Pelvis Final Result 1. [...] who have questions please contact the health manager career that requested your imaging first. OR VASC Aniogram Image Storage Only Final [...] who have questions please contact the health manager career that requested your imaging first. Venogram Abdomen & Pelvis Final Result Abnormal [...] who have questions please contact the health manager career that requested your imaging first. Request For 2nd Read CT Abdomen & [...] of outside imaging study. * Sending Institution [facility] * Date of exam [id number] * I [...] similar prior examination provided for comparison. FINDINGS: [place] Images: Noncontributory. Lower chest: Visualized structures within [...] who have questions please contact the health manager career that requested your imaging first. --------ORIGINAL REPORT -------- EXAMINATION: * REQUEST FOR 2ND READ CT ABDOMEN AND PELVIS * CT OF THE ABDOMEN AND PELVIS WITH INTRAVENOUS CONTRAST. CLINICAL HISTORY: 60-year-old male with initially presenting with low back pain right lower extremity is cold and mottled. Request for second interpretation of outside imaging study. * Sending Institution [facility] * Date of exam [id number] * I [...] similar prior examination provided for comparison. FINDINGS: [place] Images: Noncontributory. Lower chest: Visualized structures within [...] who have questions please contact the health manager career that requested your imaging first. Final 1. Focal stenosis of the infrarenal [...] who have questions please contact the health manager career that requested your imaging first. Film Library- Storage Only CT Abdomen & [...] RN - 03/12/2021 10:[address] Humear Akins Anesthesiology at pt's bedside, consent. Dr Akins Anesthesiology called Dr Annie Wiley Vascular Surgery regarding pain management, aware Dr Annie Wiley requested this lead technical writer to hold pain medications for ongoing [...] who have questions please contact the health manager career that requested your imaging first. Angiogram Chest for Pulmonary Embolus w Contrast [...] who have questions please contact the health manager career that requested your imaging first. Venogram Abdomen & Pelvis (Exam End: 03/12/2021 [...] who have questions please contact the health manager career that requested your imaging first. Jia Han Miguel A, MD Resident 03/12/21 [...] & Follow-up Care: Contact information for follow-up [facility] [address] [place] [address] Transportation: family or friend will provide - will come to get him Functional status prior to admission: Independent Home Environment: Others in the home: spouse. . Accessibility Concerns: Karlie Pate ([phone]). Current Functional Ability: Assistive Person and Equipment DME used at home: none DME Needed at Discharge: N/A - wound vac no longer needed Patient is insured through: Primary Insurance: MVP Payor: MVP / Plan: MVP [place] / Product Type: *No Product type* / Secondary Insurance: N/A Prescription Coverage: Yes Preferred Pharmacy: [facility] [address] [place] [address] [address] [place] [address] UN[address]1 [facility] [id number] This plan was formulated with input from patient and team. All are in agreement with plan. Italia FELTON, RN Phone: [phone] Pager: [phone] Plan of Care - Evangelista-Charlene Modi RN - 03/20/2021 1:38 AM EST OUTCOME EVALUATION NOTE: OUTCOME SUMMARY: 2239-C/O 6/10 headache and right leg incisional pain, given Oxycodone 5 mg po and Tylenol with relief. Had large BM and voiding adequate amount. 2299-Seen by client application support engineer c/o swelling on the left leg with [...] Amador MD - 03/18/2021 12:03 PM EST [facility] Operative Note Patient Name: Amilcar Pate : [id number] MR#: [id number] Case Date: 03/18/2021 Surgeon: Surgeon(s) and Role: [...] home: spouse. . Accessibility Concerns: Karlie Pate [phone]). Current Functional Ability: Assistive Person and Equipment DME used at home: none DME Needed at Discharge: Other DME Needs: Wound Vac Provider: VINCE Patient is insured through: Primary Insurance: MVP Payor: MVP / Plan: [place] / Product Type: *No Product type* / Secondary Insurance: N/A Prescription Coverage: Yes Preferred Pharmacy: [email or web address] [address] [place] [address] [address] [place] [address] [address]1 [facility] [id number] Plan for discharge is: Home w/ Services Home Health Services: Registered Nurse, Physical Therapy Agency Referrals & Follow-up Care: [facility] PHONE: [phone] FAX: [phone] Transportation: family or friend will provide Barriers [...] of Discharge: 03/22/2021 Italia FELTON RN Phone: [phone] Pager: [phone] Plan of Care - Rosita Patel RN [...] home: spouse. . Accessibility Concerns: Karlie Pate [phone])([phone]). Current Functional Ability: Assistive Person and Equipment DME used at home: none DME Needed at Discharge: Other DME Needs: Wound Vac Provider: [facility] Patient is insured through: Primary Insurance: MVP Payor: MVP / Plan: [place] / Product Type: *No Product type* / Secondary Insurance: N/A Prescription Coverage: Yes Preferred Pharmacy: [facility] [address] [place] [address] - [address] [place] [address] ROAD [address] [place] [address] Last Physical Therapy Recommendation: with Last Occupational [...] where referrals are placed. Provided patient with [facility] Star Quality Rating for Home care hand out. Patient requests referral to [facility] PHONE: [phone] FAX: [phone]. Expected date of discharge: 03/18/2021. Referral routed to the Dramatic Agent for matching with agency/vendor and to provide [...] of Discharge: 03/18/2021 Italia FELTON, RN Phone: [phone] Pager: [phone] Plan of Care - Lilibeth Wilks RN [...] Amador MD - 03/14/2021 12:21 PM EST [facility] Operative Note Patient Name: Amilcar Pate : [id number] MR#: [id number] Case Date: 03/14/2021 Surgeon: Surgeon(s) and Role: [...] Operative Note Patient Name: Amilcar Pate : [id number] MR#: [id number] Case Date: 03/14/2021 Surgeon: Surgeon(s) and Role: [...] used? N/A Consult Note - Areli Glover [facility] - 03/13/2021 10:06 AM EST TelePharmacy Home [...] contact the TelePharmacy Medication Reconciliation Pharmacist at [phone] for any questions. Areli Glover RPH Op Note - Sachi Ford MD - 03/12/2021 4:52 PM EST [facility] Operative Note Patient Name: Amilcar Pate : [id number] MR#: [id number] Case Date: 03/12/2021 Pre-procedure Dx: Right leg [...] endotracheal anesthesia Fluids: 1400 mL crystalloid Heparin: 96031 units Protamine: None Fluoro Time: 43.1 min Contrast: 197 mL EBL: 500 mL UOP: 800 mL Indications for the Procedure: Amilcar Pate is a 60 year old man recently diagnosed with [id number] was recently diagnosed with a DVT and [...] for infrarenal IVC stenosis - predilated with [place] 14 mm balloon IVC and R CIV stented with Venous WallStent 20 x 80 mm Extended distally into R EIVA with Wallstent 20 x 80 mm Postdilated with [place] 16 mm balloon Completion angiogram with brisk [...] IVC, right CIV and right EIV per carcass splitter'sspecifications. There was return of acute appearing, unorganized pale clot. Repeat venogram showed recanalization of the IVC and right iliac veins but was also notable for an IVC stenosis. This was predilated with a 14 mm [place] balloon. A Venous WallStent 20 x 80 mm was positioned across the area of stenosis in the infrarenal IVC and deployed. This was extended distally with a second WallStent into the right external iliac vein. The stents were postdilated with a 16 mm [place] balloon. Completion venog jeannie was completed with [...] ICU Sachi Ford Vascular Surgery Fellow pager [phone] 03/12/2021 Associated attestation - Marlene Rodríguez MD [...] No, need to discuss ( Karlie Pate ([phone])) If AD's have not been completed Karlie Pate ([phone]) would be surrogate decision maker per CT surrogate decision making law. (Only good for 180 days) Any patient receiving care at [facility] must abide by [place] law. The hierarchy for surrogate decision making [...] (i) The agent with financial power of global president or a conservator appointed in accordance with RSA 464-A. (j) The guardian of the patient???s estate. Current Coping/Education/Information Needs: Advanced Directive Current Functional Ability: Independent Functional Status Prior to Admission: Independent Home Environment: Others in the home: spouse. . Accessibility Concerns: Karlie Pate ([phone]). Current DME: none Home Address listed as: [address] [address] Social & Family Supports: All names listed below confirmed with patient as current and correct Extended Emergency Contact Information Primary Emergency Contact: Karlie Pate Address: [address] [place] [id number] [place] [address] Mobile Relation: Spouse Secondary Emergency Contact: Steven Greenwood [facility] Mobile Relation: Other Current Care Provided [...] Primary Insurance: P Payor: P / Plan: [facility] [place] / Product Type: *No Product type* / Secondary Insurance: N/A Prescription Coverage: Yes Preferred Pharmacy: [email or web address] [address] [facility] [place] - [address] [place] [place] [address] [facility] [id number] Status: Patient is a : unable to [...] 03/12/2021 5:02 AM EST Hospital Transfer from [facility] brought by EMS, history of clots in legs, had colonoscopy andendoscopy in [facility] yesterday, Eliquis was stopped for 3 days, [...] Stated Reason for Visit: Hospital Transfer from [facility] brought by EMS, case of right leg ischemia, had colonoscopy and endoscopy yesterday in [facility] and so his Eliquis were stopped for [...] n the results section. DEBRIDEMENT SKIN AND Routine 03/18/2021 9:38 SUBCU, [...] Component Value Ref Test Analysis Performed At [employer] Range Method Time Signature VB Text Department: Vascular Surgery Lab VASCUBASE Report Patient: [id number] (AMILCAR PATE) CPT: 06100 Referring Physician: MARLENE RODRÍGUEZ ?? Indications: Patient [...] (ABNORMAL) Differential, Automated (03/19/2021 5:28 AM EST) [facility] gist Method Time Signature Neutrophils % 66.1 % [facility] Neutr Abs (ANC) 5.44 1.70 - [facility] 6.10 [facility] x10(3)/[facility] LABORATORY Lymphocytes % 18.0 % [facility] Lymphocytes Abs 1.5 0.9 - 3.2 [facility] x10(3)/[facility] LABORATORY Monocytes % 12.0 % [facility] Monocyte Abs 1.0 (H) 0.3 - 0.9 [facility] x10(3)/[facility] LABORATORY Eosinophils % 2.3 % [facility] Eosinophils Abs 0.2 0.0 - 0.4 [facility] x10(3)/[facility] LABORATORY Basophils % 0.5 % [facility] Basophils Abs 0.0 0.0 - 0.1 [facility] x10(3)/[facility] LABORATORY Immature Gran % 1.10 % [facility] Comment: Immature granulocytes(IG's)percentage an d absolute count will include metamyelocytes, myelocytes, and promyelo cytes. Blood smears from CBCs yielding IG's will be scanned manually for concor dance. If this scan disagrees with the automated IG or if promyelocytes are not ed, a manual differential will be performed. Lata Gran Abs 0.09 (H) 0.00 - 0.04 x10(3)/[facility] LABORATORY Specimen Anatomical Collection Method Collection Time Receive d Time (Source) Location / / Volume Laterality Blood 03/19/2021 5:28 AM 5:43 EST AM EST Resulting Agency Comment Spec In Lab Crsitina Amador MD HEMATOLOGY ORDERABLES Performing Organization Address City/State/[place] [address] (ABNORMAL) Hemogram (03/19/2021 5:28 AM EST) Analysis Performed At Patho logist Time Signature WBC 8.2 4.0 - 9.5 [facility] x10(3)/[facility] LABORATORY RBC 3.07 (L) 4.58 - [facility] 5.54 [facility] x10(6)/[facility] LABORATORY Hemoglobin 8.9 (L) 13.7 - [facility] 16.5 g/dL [facility] Hematocrit 27.9 (L) 40.5 - [facility] 48.5 % [facility] MCV 90.9 82.9 - [facility] 93.1 [facility] LABORATORY MCH 29.0 27.5 - [facility] 32.1 pg [facility] MCHC 31.9 (L) 32.0 - [facility] 35.7 g/dL [facility] Platelets 403 (H) 145 - 357 [facility] x10(3)/[facility] LABORATORY RDWSD 43.8 36.0 - [facility] 45.0 [facility] LABORATORY RDWCV 13.3 11.4 - [facility] 13.8 % [facility]ATORY MPV 9.3 7.6 - 12.9 [facility] LABORATORY nRBC % Auto 0.0 % [facility] nRBC Abs Auto 0.000 0.000 - [facility] 0.000 [facility] x10(3)/[facility] LABORATORY Specimen Anatomical Collection Method Collection Time Receive d Time (Source) Location / / Volume Laterality Blood 03/19/2021 5:28 AM 2 5:43 EST AM EST Resulting Agency Comment Spec In Lab Cristina Amador MD HEMATOLOGY ORDERABLES Performing Organization Address City/[facility]/ZIP Code Phon e Number [address] Phosphorus (03/19/2021 5:28 AM EST) P athologist Signature Phosphorus 4.0 2.5 - 4.5 [facility] mg/dL [facility] Specimen Anatomical Collection Method Collection Time Receive d Time (Source) Location / / Volume Laterality Blood 03/19/2021 5:28 AM 2 5:43 EST AM EST Resulting Agency Comment Spec In Lab Marlene Rodríguez MD CHEMISTRY ORDERABLES Performing Organization Address City/[facility]/[place] [address] Magnesium (03/19/2021 5:28 AM EST) P athologist Signature Magnesium 0.91 0.69 - 1.07 [facility] mmol/L [facility] Specimen Anatomical Collection Method Collection Time Receive d Time (Source) Location / / Volume Laterality Blood 03/19/2021 5:28 AM 2 5:43 EST AM EST Resulting Agency Comment Spec In Lab Marlene Rodríguez MD CHEMISTRY ORDERABLES Performing Organization Address City/[facility] [place] [address] (ABNORMAL) Basic Metabolic Panel (non-fasting) (03/19/2021 5:28 AM EST) P athologist Signature Glucose Lvl 117 65 - 199 [facility] mg/dL [facility] Comment: Diabetes: >=200 mg/dL plus symp toms BUN 12 10 - 20 mg/dL [facility] Creatinine 0.63 (L) 0.80 - 1.50 mg/dL [facility] Sodium 139 135 - 145 mmol/L [facility] Potassium 3.7 3.5 - 5.0 mmol/L [facility] Comment: Please note: ??Patients with WBC >100,00 0 may have falsely elevated Potassium levels. ??For accurate Potassium quantif ication in these patients send serum separator tube (gold top) for subsequent determinations. ??Contact the Clinical Chemistry Laboratory if there are any qu estions. Chloride 103 98 - 107 mmol/L [facility] CO2 23 22 - 31 mmol/L [facility] Anion Gap 13 5 - 15 mmol/L [facility] Calcium 8.9 8.5 - 10.5 mg/dL [facility] Estimated GFR 106 >=60 mL/min/1.73 m?? [facility] Comment: This patient? s estimated [...] Organization Address City/State/[place] [address] (ABNORMAL) Differential, Automated (03/18/2021 5:43 AM EST) [facility] gist Method Time Signature Neutrophils % 66.5 % [facility] Neutr Abs (ANC) 6.74 (H) 1.70 - [facility] 6.10 [facility] x10(3)/[facility] L LABORATORY Lymphocytes % 19.8 % [facility] Lymphocytes Abs 2.0 0.9 - 3.2 [facility] x10(3)/[facility] LABORATORY Monocytes % 10.4 % [facility] Monocyte Abs 1.0 (H) 0.3 - 0.9 [facility] x10(3)/[facility] LABORATORY Eosinophils % 2.3 % [facility] Eosinophils Abs 0.2 0.0 - 0.4 [facility] x10(3)/[facility] LABORATORY Basophils % 0.4 % [facility] Basophils Abs 0.0 0.0 - 0.1 [facility] x10(3)/[facility] LABORATORY Immature Gran % 0.60 % [facility] Comment: Immature granulocytes(IG's)percentage an d absolute count will include metamyelocytes, myelocytes, and promyelo cytes. Blood smears from CBCs yielding IG's will be scanned manually for concor dance. If this scan disagrees with the automated IG or if promyelocytes are not ed, a manual differential will be performed. Lata Gran Abs 0.06 (H) 0.00 - 0.04 x10(3)/[facility] LABORATORY Specimen Anatomical Collection Method Collection Time Receive d Time (Source) Location / / Volume Laterality Blood 03/18/2021 5:43 AM 6:14 EST AM EST Resulting Agency Comment Spec In Lab Cristina Amador MD HEMATOLOGY ORDERABLES Performing Organization Address City/State/[place] [address] (ABNORMAL) Hemogram (03/18/2021 5:43 AM EST) Analysis Performed At Patho logist Time Signature WBC 10.1 (H) 4.0 - 9.5 [facility] x10(3)/[facility] LABORATORY RBC 3.22 (L) 4.58 - [facility] 5.54 [facility] x10(6)/[facility] LABORATORY Hemoglobin 9.3 (L) 13.7 - [facility] 16.5 g/dL [facility] Hematocrit 28.4 (L) 40.5 - [facility] 48.5 % [facility] MCV 88.2 82.9 - [facility] 93.1 [facility] LABORATORY MCH 28.9 27.5 - [facility] 32.1 pg [facility] MCHC 32.7 32.0 - [facility] 35.7 g/dL [facility] Platelets 390 (H) 145 - 357 [facility] x10(3)/[facility] LABORATORY RDWSD 41.8 36.0 - [facility] 45.0 [facility] LABORATORY RDWCV 13.1 11.4 - [facility] 13.8 % [facility] LAB[facility] MPV 9.9 7.6 - 12.9 [facility] LABORATORY nRBC % Auto 0.0 % [facility] LABORATORY nRBC Abs Auto 0.000 0.000 - FREDY CHANG 0.000 [facility] x10(3)/[facility] LABORATORY Specimen Anatomical Collection Method Collection Time Receive d Time (Source) Location / / Volume Laterality Blood 03/18/2021 5:43 AM 2 6:14 EST AM EST Resulting Agency Comment Spec In Lab Cristina Amador MD HEMATOLOGY ORDERABLES Performing Organization Address City/[facility]/[place] [address] Phosphorus (03/18/2021 5:43 AM EST) P athologist Signature Phosphorus 4.0 2.5 - 4.5 [facility]dL [facility] LABORATORY Specimen Anatomical Collection Method Collection Time Receive d Time (Source) Location / / Volume Laterality Blood 03/18/2021 5:43 AM 2 6:14 EST AM EST Resulting Agency Comment Spec In Lab Marlene Rodríguez MD CHEMISTRY ORDERABLES Performing Organization Address City/[facility]/[place] [address] Magnesium (03/18/2021 5:43 AM EST) P athologist Signature Magnesium 0.87 0.69 - 1.07 [facility] mmol/L [facility] LABORATORY Specimen Anatomical Collection Method Collection Time Receive d Time (Source) Location / / Volume Laterality Blood 03/18/2021 5:43 AM 6:14 EST AM EST Resulting Agency Comment Spec In Lab Marlene Rodríguez MD CHEMISTRY ORDERABLES Performing Organization Address City/State/[place] [address] (ABNORMAL) Basic Metabolic Panel (non-fasting) (03/18/2021 5:43 AM EST) athologist Signature Glucose Lvl 122 65 - 199 [facility] mg/dL [facility] LABORATORY Comment: Diabetes: >=200 mg/dL plus symp toms BUN 11 10 - 20 mg/dL [facility] LABORATORY Creatinine 0.60 (L) 0.80 - 1.50 mg/dL [facility] LABORATORY Sodium 136 135 - 145 mmol/L [facility] LABORATORY Potassium 3.7 3.5 - 5.0 mmol/L [facility] LABORATORY Comment: Please note: ??Patients with WBC >100,00 0 may have falsely elevated Potassium levels. ??For accurate Potassium quantif ication in these patients send serum separator tube (gold top) for subsequent determinations. ??Contact the Clinical Chemistry Laboratory if there are any qu estions. Chloride 103 98 - 107 mmol/L [facility] LABORATORY CO2 21 (L) 22 - 31 mmol/L [facility] LABORATORY Anion Gap 12 5 - 15 mmol/L [facility] LABORATORY Calcium 9.2 8.5 - 10.5 mg/dL [facility] LABORATORY Estimated GFR 109 >=60 mL/min/1.73 m?? [facility] LABORATORY Comment: This patient? s estimated [...] Rodríguez MD CHEMISTRY ORDERABLES Performing Organization Address City/[facility] Phon e Number [address] Heparin (unfractionated) Level (03/18/2021 5:43 AM EST) athologist Signature Heparin UFH 0.43 IU/mL [facility] LABORATORY Comment: Heparin (anti-Xa) levels should be [...] MD HEMATOLOGY ORDERABLES Performing Organization Address City/[facility]/ZIP [facility] Phon e Number [address] (ABNORMAL) Differential, Automated (03/17/2021 5:39 AM EST) Patholo gist Method Time Signature Neutrophils % 69.1 % [facility] LABORATORY Neutr Abs (ANC) 6.64 (H) 1.70 - [facility] 6.10 [facility] x10(3)/[facility] LABORATORY Lymphocytes % 17.9 % [facility] LABORATORY Lymphocytes Abs 1.7 0.9 - 3.2 [facility] x10(3)/[facility] LABORATORY Monocytes % 10.2 % [facility] LABORATORY Monocyte Abs 1.0 (H) 0.3 - 0.9 [facility] x10(3)/[facility] LABORATORY Eosinophils % 2.2 % [facility] LABORATORY Eosinophils Abs 0.2 0.0 - 0.4 [facility] x10(3)/[facility] LABORATORY Basophils % 0.3 % [facility] LABORATORY Basophils Abs 0.0 0.0 - 0.1 [facility] x10(3)/[facility] LABORATORY Immature Gran % 0.30 % [facility] LABORATORY Comment: Immature granulocytes(IG's)percentage an d absolute count will include metamyelocytes, myelocytes, and promyelo cytes. Blood smears from CBCs yielding IG's will be scanned manually for concor dance. If this scan disagrees with the automated IG or if promyelocytes are not ed, a manual differential will be performed. Lata Gran Abs 0.03 0.00 - 0.04 x10(3)/[facility] LABORATORY Specimen Anatomical Collection Method Collection Time Receive d Time (Source) Location / / Volume Laterality Blood 03/17/2021 5:39 AM 5:59 EST AM EST Resulting Agency Comment Spec In Lab Cristina Amador MD HEMATOLOGY ORDERABLES Performing Organization Address City/State/[place] [address] (ABNORMAL) Hemogram (03/17/2021 5:39 AM EST) Analysis Performed At Patho logist Time Signature WBC 9.6 (H) 4.0 - 9.5 [facility] x10(3)/[facility] LABORATORY RBC 3.00 (L) 4.58 - [facility] 5.54 [facility] x10(6)/[facility] LABORATORY Hemoglobin 8.8 (L) 13.7 - FREDY GRAVESCHANG 16.5 g/dL [facility] LABORATORY Hematocrit 26.6 (L) 40.5 - FREDY GRAVESCHANG 48.5 % [facility] LABORATORY MCV 88.7 82.9 - FREDY GRAVESCHANG 93.1 [facility] LABORATORY MCH 29.3 27.5 - FREDY GRAVESCHANG 32.1 pg [facility] LABORATORY MCHC 33.1 32.0 - FREDY GRAVESCHANG 35.7 g/dL [facility] LABORATORY Platelets 333 145 - 357 [facility] x10(3)/[facility] LABORATORY RDWSD 42.0 36.0 - FREDY CHANG 45.0 [facility] LABORATORY RDWCV 13.1 11.4 - [facility] 13.8 % [facility] LABORATORY MPV 9.5 7.6 - 12.9 [facility] LABORATORY nRBC % Auto 0.0 % [facility] LABORATORY nRBC Abs Auto 0.000 0.000 - FREDY GRAVESCHANG 0.000 [facility] x10(3)/[facility] LABORATORY Specimen Anatomical Collection Method Collection Time Receive d Time (Source) Location / / Volume Laterality Blood 03/17/2021 5:39 AM 2 5:59 EST AM EST Resulting Agency Comment Spec In Lab Cristina Amador MD HEMATOLOGY ORDERABLES Performing Organization Address City/[facility]/ZIP Code Phon e Number [address] Phosphorus (03/17/2021 5:39 AM EST) P athologist Signature Phosphorus 4.2 2.5 - 4.5 [facility] CHANG mg/dL [facility] LABORATORY Specimen Anatomical Collection Method Collection Time Receive d Time (Source) Location / / Volume Laterality Blood 03/17/2021 5:39 AM 2 5:59 EST AM EST Resulting Agency Comment Spec In Lab Marlene Rodríguez MD CHEMISTRY ORDERABLES Performing Organization Address City/State/ZIP Code Phon e Number [address] Magnesium (03/17/2021 5:39 AM EST) athologist Signature Magnesium 0.90 0.69 - 1.07 [facility] mmol/L [facility] LABORATORY Specimen Anatomical Collection Method Collection Time Receive d Time (Source) Location / / Volume Laterality Blood 03/17/2021 5:39 AM 2 5:59 EST AM EST Resulting Agency Comment Spec In Lab Marlene Rodríguez MD CHEMISTRY ORDERABLES Performing Organization Address City/[facility]/[place] [address] Heparin (unfractionated) Level (03/17/2021 5:39 AM EST) athologist Signature Heparin UFH 0.39 IU/mL [facility] LABORATORY Comment: Heparin (anti-Xa) levels should be [...] Organization Address City/State/[place] [address] (ABNORMAL) Basic Metabolic Panel (non-fasting) (03/17/2021 5:39 AM EST) athologist Signature Glucose Lvl 130 65 - 199 [facility] mg/dL [facility] LABORATORY Comment: Diabetes: >=200 mg/dL plus symp toms BUN 10 10 - 20 mg/dL [facility] LABORATORY Creatinine 0.63 (L) 0.80 - 1.50 mg/dL [facility] LABORATORY Sodium 136 135 - 145 mmol/L [facility] LABORATORY Potassium 3.8 3.5 - 5.0 mmol/L [facility] LABORATORY Comment: Please note: ??Patients with WBC >100,00 0 may have falsely elevated Potassium levels. ??For accurate Potassium quantif ication in these patients send serum separator tube (gold top) for subsequent determinations. ??Contact the Clinical Chemistry Laboratory if there are any qu estions. Chloride 104 98 - 107 mmol/L [facility] LABORATORY CO2 24 22 - 31 mmol/L [facility] LABORATORY Anion Gap 8 5 - 15 mmol/L [facility] LABORATORY Calcium 9.1 8.5 - 10.5 mg/dL [facility] LABORATORY Estimated GFR 106 >=60 mL/min/1.73 m?? [facility] LABORATORY Comment: This patient? s estimated [...] Organization Address City/State/[place] [address] Urinalysis with reflex Culture (03/16/2021 10:39 PM EST) Patholo gist Method Time Signature Glucose UA Negative Negative [facility] mg/dL [facility] LABORATORY Protein UA Negative Negative [facility] mg/dL [facility] LABORATORY Bilirubin UA Negative Negative [facility] mg/dL [facility] LABORATORY Comment: Clinical correlation required for positi ve Urine Bilirubin results as false positive may occur with some drugs and d rug related products. If a false positive is suspected a serum total bili shahid should be considered if clinically indicated. Urobilinogen UA Normal Normal mg/dL [facility] LABORATORY pH UA 7.5 5.0 - 8.0 [facility] LABORATORY Blood UA Negative Negative mg/dL [facility] LABORATORY Ketones UA Negative Negative mg/dL [facility] LABORATORY Nitrite UA Negative Negative [facility] LABORATORY Leukocytes UA Negative Negative [facility] LABORATORY Appearance UA Clear Clear [facility] LABORATORY Spec [place] UA 1.007 1.005 - 1.030 [facility] LABORATORY Color UA Yellow Yellow [facility] LABORATORY Culture Reflexed No [facility] LABORATORY Specimen Anatomical Collection Method Collection Time Receive d Time (Source) Location / / Volume Laterality Clean Catch 03/16/2021 10:39 03/16/2021 Urine PM EST 11:04 PM EST Resulting Agency Comment Spec In Lab Marlene Rodríguez MD URINE ORDERABLES Performing Organization Address City/State/[place] [address] XR Chest One View [...] who have questions please contact the health manager career that requested your imaging first. ? Narrative 03/16/2021 10:29 PM EST EXAMINATION: XR [...] ho have questions please contact the health manager career that requested your imaging first. Marlene Rodríguez MD IMG DX ORDERABLES Blood culture (03/16/2021 9:06 PM EST) [facility] Method Time Signature Blood Culture No growth FREDY DOWNING at 5 days. [facility] LABORATORY Specimen Anatomical Collection Method Collection Time Receive d Time (Source) Location / / Volume Laterality Blood STRUCTURE OF RIGHT 03/16/2021 9:06 PM 9:53 HAND / Unknown EST PM EST Resulting Agency Comment Spec In Lab Marlene Rodríguez MD MICROBIOLOGY - BLOOD ORDERAB LES Performing Organization Address City/State/ZIP Code Phon e Number [address] Blood culture (03/16/2021 9:06 PM EST) Patholo gist Method Time Signature Blood Culture No growth [facility] at 5 days. [facility] LABORATORY Specimen Anatomical Collection Method Collection Time Receive d Time (Source) Location / / Volume Laterality Blood STRUCTURE OF LEFT 03/16/2021 9:06 PM 03/02 9:52 HAND / Unknown EST PM EST Resulting Agency Comment Spec In Lab Marlene Rodríguez MD MICROBIOLOGY - BLOOD ORDERAB LES Performing Organization Address City/[facility]/[place] [address] Heparin (unfractionated) Level (03/16/2021 3:09 AM EST) P athologist Signature Heparin UFH 0.50 IU/mL [facility] LABORATORY Comment: Heparin (anti-Xa) levels should be [...] MD HEMATOLOGY ORDERABLES Performing Organization Address City/[facility]/ZIP Code Phon e Number [address] (ABNORMAL) Differential, Automated (03/16/2021 3:09 AM EST) Patholo gist Method Time Signature Neutrophils % 75.9 % [facility] LABORATORY Neutr Abs (ANC) 7.08 (H) 1.70 - [facility] 6.10 [facility] x10(3)/[facility] LABORATORY Lymphocytes % 13.6 % [facility] LABORATORY Lymphocytes Abs 1.3 0.9 - 3.2 [facility] x10(3)/[facility] LABORATORY Monocytes % 7.7 % [facility] LABORATORY Monocyte Abs 0.7 0.3 - 0.9 [facility] x10(3)/[facility] LABORATORY Eosinophils % 1.9 % [facility] LABORATORY Eosinophils Abs 0.2 0.0 - 0.4 [facility] x10(3)/[facility] LABORATORY Basophils % 0.2 % [facility] LABORATORY Basophils Abs 0.0 0.0 - 0.1 [facility] x10(3)/[facility] LABORATORY Immature Gran % 0.70 % [facility] LABORATORY Comment: Immature granulocytes(IG's)percentage an d absolute count will include metamyelocytes, myelocytes, and promyelo cytes. Blood smears from CBCs yielding IG's will be scanned manually for concor dance. If this scan disagrees with the automated IG or if promyelocytes are not ed, a manual differential will be performed. Lata Gran Abs 0.07 (H) 0.00 - 0.04 x10(3)/[facility] LABORATORY Specimen Anatomical Collection Method Collection Time Receive d Time (Source) Location / / Volume Laterality Blood 03/16/2021 3:09 AM 3:13 EST AM EST Resulting Agency Comment Spec In Lab Cristina Amador MD HEMATOLOGY ORDERABLES Performing Organization Address City/State/[place] [address] (ABNORMAL) Hemogram (03/16/2021 3:09 AM EST) Analysis Performed At [facility] logist Time Signature WBC 9.3 4.0 - 9.5 [facility] x10(3)/[facility] LABORATORY RBC 2.92 (L) 4.58 - FREDY GRAVESCHANG 5.54 [facility] x10(6)/[facility] LABORATORY Hemoglobin 8.6 (L) 13.7 - FREDY CHANG 16.5 g/dL [facility] LABORATORY Hematocrit 26.0 (L) 40.5 - FREDY MARTÍNEZCOCK 48.5 % [facility] LABORATORY MCV 89.0 82.9 - [facility] 93.1 [facility] LABORATORY MCH 29.5 27.5 - FREDY CHANG 32.1 pg [facility] LABORATORY MCHC 33.1 32.0 - FREDY GRAVESCHANG 35.7 g/dL [facility] LABORATORY Platelets 292 145 - 357 [facility] x10(3)/[facility] LABORATORY RDWSD 41.7 36.0 - [facility] 45.0 [facility] LABORATORY RDWCV 12.8 11.4 - [facility] 13.8 % [facility] LABORATORY MPV 9.4 7.6 - 12.9 [facility] LABORATORY nRBC % Auto 0.0 % [facility] LABORATORY nRBC Abs Auto 0.000 0.000 - [facility] 0.000 [facility] x10(3)/[facility] LABORATORY Specimen Anatomical Collection Method Collection Time Receive d Time (Source) Location / / Volume Laterality Blood 03/16/2021 3:09 AM 2 3:13 EST AM EST Resulting Agency Comment Spec In Lab Cristina Amador MD HEMATOLOGY ORDERABLES Performing Organization Address City/State/[place] [address] Phosphorus (03/16/2021 3:09 AM EST) P athologist Signature Phosphorus 3.4 2.5 - 4.5 [facility] mg/dL [facility] LABORATORY Specimen Anatomical Collection Method Collection Time Receive d Time (Source) Location / / Volume Laterality Blood 03/16/2021 3:09 AM 2 3:13 EST AM EST Resulting Agency Comment Spec In Lab Marlene Rodríguez MD CHEMISTRY ORDERABLES Performing Organization Address City/State/ZIP Code Phon e Number [place] [id number] [facility] LABORATORY Drive Magnesium (03/16/2021 3:09 AM EST) athologist Signature Magnesium 0.86 0.69 - 1.07 [facility] mmol/L [facility] LABORATORY Specimen Anatomical Collection Method Collection Time Receive d Time (Source) Location / / Volume Laterality Blood 03/16/2021 3:09 AM 3:13 EST AM EST Resulting Agency Comment Spec In Lab Marlene Rodríguez MD CHEMISTRY ORDERABLES Performing Organization Address City/State/ZIP Code Phon e Number [address] (ABNORMAL) Basic Metabolic Panel (non-fasting) (03/16/2021 3:09 AM EST) athologist Signature Glucose Lvl 118 65 - 199 [facility] mg/dL [facility] LABORATORY Comment: Diabetes: >=200 mg/dL plus symp toms BUN 13 10 - 20 mg/dL [facility] LABORATORY Creatinine 0.61 (L) 0.80 - 1.50 mg/dL [facility] LABORATORY Sodium 137 135 - 145 mmol/L [facility] LABORATORY Potassium 4.2 3.5 - 5.0 mmol/L [facility] LABORATORY Comment: Please note: ??Patients with WBC >100,00 0 may have falsely elevated Potassium levels. ??For accurate Potassium quantif ication in these patients send serum separator tube (gold top) for subsequent determinations. ??Contact the Clinical Chemistry Laboratory if there are any qu estions. Chloride 103 98 - 107 mmol/L [facility] LABORATORY CO2 25 22 - 31 mmol/L [facility] LABORATORY Anion Gap 9 5 - 15 mmol/L [facility] LABORATORY Calcium 8.6 8.5 - 10.5 mg/dL [facility] LABORATORY Estimated GFR 108 >=60 mL/min/1.73 m?? [facility] LABORATORY Comment: This patient? s estimated [...] Rodríguez MD CHEMISTRY ORDERABLES Performing Organization Address City/[facility]/ZIP [facility] [address] Heparin (unfractionated) Level (03/15/2021 8:58 PM EST) athologist Signature Heparin UFH 0.62 IU/mL [facility] LABORATORY Comment: Heparin (anti-Xa) levels should be [...] MD HEMATOLOGY ORDERABLES Performing Organization Address City/[facility]/[place] [address] VS Venogram Vascular Surgery [...] Left common iliac vein stent placement (Express [id number], post-dilated to 12mm) - Left common and external iliac vein st ent placement (Wallstent [id number]) - US guided right internal jugular vein [...] co mmon iliac vein stent placement (Express [id number], post-dilated to 12mm), Left com mon and external iliac vein stent placement (Wallstent [id number]); - IVC venogram: suprarenal IVC filter in [...] the proximal commo n iliac vein. A [place] 5x40mm balloon was used to dilate the [...] sheath to a 1 0Fr sheath. A [id number] wallstent was deployed in the left common [...] was performed with the above findings. The [employer] IVC filter retrieval system was opened a [...] who have questions please contact the health manager career that requested your imaging first. ? Procedure Note Marlene Rodríguez MD - 03/19/2021Format [...] Left common iliac vein stent placement (Express [id number], post-dilated to 12mm) - Left common and external iliac vein st ent placement (Wallstent [id number]) - US guided right internal jugular vein [...] co mmon iliac vein stent placement (Express [id number], post-dilated to 12mm), Left com mon and external iliac vein stent placement (Wallstent [id number]); - IVC venogram: suprarenal IVC filter in [...] the proximal commo n iliac vein. A [place] 5x40mm balloon was used to dilate the [...] sheath to a 1 0Fr sheath. A [id number] wallstent was deployed in the left common [...] was performed with the above findings. The [employer] IVC filter retrieval system was opened a [...] ho have questions please contact the health manager career that requested your imaging first. Marlene Rodríguez MD IMG IR ORDERABLES Heparin (unfractionated) Level (03/15/2021 1:20 AM EST) P athologist Signature Heparin UFH 0.47 IU/mL [facility] LABORATORY Comment: Heparin (anti-Xa) levels should be [...] Organization Address City/State/[place] [address] (ABNORMAL) Differential, Automated (03/15/2021 12:41 AM EST) Patholo gist Method Time Signature Neutrophils % 75.9 % [facility] LABORATORY Neutr Abs (ANC) 7.15 (H) 1.70 - [facility] 6.10 [facility] x10(3)/[facility] L LABORATORY Lymphocytes % 14.3 % [facility] LABORATORY Lymphocytes Abs 1.4 0.9 - 3.2 [facility] x10(3)/[facility] LABORATORY Monocytes % 7.8 % [facility] LABORATORY Monocyte Abs 0.7 0.3 - 0.9 [facility] x10(3)/[facility] LABORATORY Eosinophils % 1.4 % [facility] LABORATORY Eosinophils Abs 0.1 0.0 - 0.4 [facility] x10(3)/[facility] LABORATORY Basophils % 0.3 % [facility] LABORATORY Basophils Abs 0.0 0.0 - 0.1 [facility] x10(3)/[facility] LABORATORY Immature Gran % 0.30 % [facility] LABORATORY Comment: Immature granulocytes(IG's)percentage an d absolute count will include metamyelocytes, myelocytes, and promyelo cytes. Blood smears from CBCs yielding IG's will be scanned manually for concor dance. If this scan disagrees with the automated IG or if promyelocytes are not ed, a manual differential will be performed. Lata Gran Abs 0.03 0.00 - 0.04 x10(3)/[facility] LABORATORY Specimen Anatomical Collection Method Collection Time Receive d Time (Source) Location / / Volume Laterality Blood 03/15/2021 12:41 03/15/2021 AM EST 12:51 AM EST Resulting Agency Comment Spec In Lab Cristina Amador MD HEMATOLOGY ORDERABLES Performing Organization Address City/State/[place] [address] (ABNORMAL) Hemogram (03/15/2021 12:41 AM EST) Analysis Performed At Patho logist Time Signature WBC 9.4 4.0 - 9.5 [facility] x10(3)/[facility] LABORATORY RBC 3.11 (L) 4.58 - [facility] 5.54 [facility] x10(6)/[facility] LABORATORY Hemoglobin 8.9 (L) 13.7 - [facility] 16.5 g/dL [facility] LABORATORY Hematocrit 27.8 (L) 40.5 - [facility] 48.5 % [facility] MCV 89.4 82.9 - FREDY GRAVESCHANG 93.1 [facility] LABORATORY MCH 28.6 27.5 - FREDY GRAVESCHANG 32.1 pg [facility] LABORATORY MCHC 32.0 32.0 - FREDY MARTÍNEZCOCK 35.7 g/dL [facility] LABORATORY Platelets 359 (H) 145 - 357 [facility] x[facility](3[facility] LABORATORY RDWSD 42.1 36.0 - FREDY MARTÍNEZCOCK 45.0 [facility] LABORATORY RDWCV 12.9 11.4 - FREDY MARTÍNEZCOCK 13.8 % [facility] LABORATORY MPV 9.6 7.6 - 12.9 FREDY DOWNING [facility] LABORATORY nRBC % Auto 0.0 % [facility] LABORATORY nRBC Abs Auto 0.000 0.000 - FREDY MARTÍNEZCOCK 0.000 [facility] x10(3)/[facility] LABORATORY Specimen Anatomical Collection Method Collection Time Receive d Time (Source) Location / / Volume Laterality Blood 03/15/2021 12:41 03/15/2021 AM EST 12:51 AM EST Resulting Agency Comment Spec In Lab Cristina Amador MD HEMATOLOGY ORDERABLES Performing Organization Address City/State/ZIP Code Phon e Number [address] Phosphorus (03/15/2021 12:41 AM EST) P athologist Signature Phosphorus 3.1 2.5 - 4.5 FREDY CHANG mg/dL [facility] LABORATORY Specimen Anatomical Collection Method Collection Time Receive d Time (Source) Location / / Volume Laterality Blood 03/15/2021 12:41 03/15/2021 AM EST 12:51 AM EST Resulting Agency Comment Spec In Lab Marlene Rodríguez MD CHEMISTRY ORDERABLES Performing Organization Address City/State/ZIP Code Phon e Number [address] Magnesium (03/15/2021 12:41 AM EST) P athologist Signature Magnesium 0.91 0.69 - 1.07 [facility] CHANG mmol/L [facility] LABORATORY Specimen Anatomical Collection Method Collection Time Receive d Time (Source) Location / / Volume Laterality Blood 03/15/2021 12:41 03/15/2021 AM EST 12:51 AM EST Resulting Agency Comment Spec In Lab Marlene Rodríguez MD CHEMISTRY ORDERABLES Performing Organization Address City/State/[place] [address] (ABNORMAL) Basic Metabolic Panel (non-fasting) (03/15/2021 12:41 AM EST) P athologist Signature Glucose Lvl 152 65 - 199 [facility] mg/dL [facility] LABORATORY Comment: Diabetes: >=200 mg/dL plus symp toms BUN 10 10 - 20 mg/dL [facility] LABORATORY Creatinine 0.62 (L) 0.80 - 1.50 mg/dL [facility] LABORATORY Sodium 135 135 - 145 mmol/L [facility] LABORATORY Potassium 3.8 3.5 - 5.0 mmol/L [facility] LABORATORY Comment: Please note: ??Patients with WBC >100,00 0 may have falsely elevated Potassium levels. ??For accurate Potassium quantif ication in these patients send serum separator tube (gold top) for subsequent determinations. ??Contact the Clinical Chemistry Laboratory if there are any qu estions. Chloride 101 98 - 107 mmol/L [facility] LABORATORY CO2 25 22 - 31 mmol/L [facility] LABORATORY Anion Gap 9 5 - 15 mmol/L [facility] LABORATORY Calcium 8.3 (L) 8.5 - 10.5 mg/dL [facility] LABORATORY Comment: result rechecked- Estimated GFR 107 >=60 mL/min/1.73 m?? [facility] LABORATORY Comment: This patient? s estimated [...] Organization Address City/State/[place] [address] XR Chest One View [...] who have questions please contact the health manager career that requested your imaging first. ? Narrative [...] ho have questions please contact the health manager career that requested your imaging first. Marlene Rodríguez [...] 444 ms MUSE SYSTEM (Bezet) Calculated P [place] 30 degrees MUSE SYSTEM Calculated R [place] -5 degrees MUSE SYSTEM Calculated T [place] 30 degrees MUSE SYSTEM INTERPRETATION Normal sinus rhythm MUSE SYSTEM Nonspecific T wave abnormality Abnormal ECG When compared with ECG of 12-MAR-2021 05:17, No significant change was found I personally reviewed the tracing and edited the fellows int erpretation Confirmed by fellow Pato Corcoran ([id number]) on 03/15/2021 1: 59:35 PM Confirmed by Marilin Mclean ([id number]) on 03/16/2021 12:30:59 PM Specimen Anatomical Collection Method Collection Time Receive d Time (Source) Location / / Volume Laterality 03/15/2021 12:26 03/16/2021 AM EST 12:30 PM EST Marlene Rodríguez MD ECG ORDERABLES Performing Organization Address City/[facility]/ZIP Code Phon e Number MUSE SYSTEM Green Tube HOLD (03/14/2021 5:47 PM EST) athologist Signature Green Hold Sample in [facility] LABORATORY Specimen Anatomical Collection Method Collection Time Receive d Time (Source) Location / / Volume Laterality Blood No Charge / 03/14/2021 5:47 PM 5:47 Unknown EST PM EST Marlene Rodríguez MD CHEMISTRY ORDERABLES Performing Organization Address City/[facility]/[place] [address] Heparin (unfractionated) Level (03/14/2021 5:30 PM EST) athologist Signature Heparin UFH 0.48 IU/mL [facility] LABORATORY Comment: Heparin (anti-Xa) levels should be [...] Organization Address City/State/[place] [address] (ABNORMAL) CK (03/14/2021 1:05 PM EST) P athologist Signature CK, Total 5,550 (H) 0 - 200 [facility] unit/L [facility] LABORATORY Specimen Anatomical Collection Method Collection Time Receive d Time (Source) Location / / Volume Laterality Blood 03/14/2021 1:05 PM 2 1:33 EST PM EST Resulting Agency Comment Spec In Lab Marlene Rodríguez MD CHEMISTRY ORDERABLES Performing Organization Address City/State/[place] [address] Venogram Abdomen & [...] who have questions please contact the health manager career that requested your imaging first. ? Narrative 03/14/2021 1:07 PM EST EXAMINATION: CT [...] ho have questions please contact the health manager career that requested your imaging first. Marlene Rodríguez MD IMG CT ORDERABLES Heparin (unfractionated) Level (03/14/2021 10:40 AM EST) P athologist Signature Heparin UFH 0.40 IU/mL [facility] LABORATORY Comment: Heparin (anti-Xa) levels should be [...] Rodríguez MD HEMATOLOGY ORDERABLES Performing Organization Address City/State/[facility] [place] [address] Heparin (unfractionated) Level (03/14/2021 4:25 AM EST) P athologist Signature Heparin UFH 0.77 IU/mL [facility] LABORATORY Comment: Heparin (anti-Xa) levels should be [...] Organization Address City/State/[place] [address] (ABNORMAL) CK (03/14/2021 4:25 AM EST) P athologist Signature CK, Total 7,495 (H) 0 - 200 [facility] LABORATORY Comment: result rechecked-KS Specimen Anatomical Collection Method Collection Time Receive d Time (Source) Location / / Volume Laterality Blood 03/14/2021 4:25 AM 2 4:30 EST AM EST Resulting Agency Comment Spec In Lab Marlene Rodríguez MD CHEMISTRY ORDERABLES Performing Organization Address City/[facility]/[place] [address] Blue Tube HOLD (03/14/2021 3:35 AM EST) athologist Signature Blue Hold Sample in [facility] LABORATORY Specimen Anatomical Collection Method Collection Time Receive d Time (Source) Location / / Volume Laterality Blood No Charge / 03/14/2021 3:35 AM 2 4:03 Unknown EST AM EST Sachi Ford MD HEMATOLOGY ORDERABLES Performing Organization Address City/[facility]/[place] [address] (ABNORMAL) CK (03/14/2021 2:50 AM EST) athologist Signature CK, Total 7,620 (H) 0 - 200 [facility] LABORATORY Specimen Anatomical Collection Method Collection Time Receive d Time (Source) Location / / Volume Laterality Blood 03/14/2021 2:50 AM 2 2:56 EST AM EST Resulting Agency Comment Spec In Lab Marlene Rodríguez MD CHEMISTRY ORDERABLES Performing Organization Address City/[facility]/[place] [address] (ABNORMAL) CK (03/14/2021 12:35 AM EST) athologist Signature CK, Total 8,075 (H) 0 - 200 [facility] LABORATORY Specimen Anatomical Collection Method Collection Time Receive d Time (Source) Location / / Volume Laterality Blood Venous Draw / 03/14/2021 12:35 03/14/2021 Unknown AM EST 12:44 AM EST Resulting Agency Comment Spec In Lab Ruben Medrano Jr., MD CHEMISTRY ORDERABLES Performing Organization Address City/State/[place] [address] (ABNORMAL) Differential, Automated (03/14/2021 12:35 AM EST) [facility] Method Time Signature Neutrophils % 79.2 % [facility] LABORATORY Neutr Abs (ANC) 9.29 (H) 1.70 - [facility] 6.10 [facility] x10(3)/[facility] LABORATORY Lymphocytes % 10.1 % [facility] LABORATORY Lymphocytes Abs 1.2 0.9 - 3.2 [facility] x10(3)/[facility] LABORATORY Monocytes % 9.3 % [facility] LABORATORY Monocyte Abs 1.1 (H) 0.3 - 0.9 [facility] x10(3)/[facility] LABORATORY Eosinophils % 0.8 % [facility] LABORATORY Eosinophils Abs 0.1 0.0 - 0.4 [facility] x10(3)/[facility] LABORATORY Basophils % 0.3 % [facility] LABORATORY Basophils Abs 0.0 0.0 - 0.1 [facility] x10(3)/[facility] LABORATORY Immature Gran % 0.30 % [facility] LABORATORY Comment: Immature granulocytes(IG's)percentage an d [...] Organization Address City/State/[place] [address] (ABNORMAL) Hemogram (03/14/2021 12:35 AM EST) Analysis Performed At Patho logist Time Signature WBC 11.7 (H) 4.0 - 9.5 [facility] x10(3[facility] LABORATORY RBC 3.03 (L) 4.58 - [place] CH[facility] 5.54 [facility] x10(6)/[facility] LABORATORY Hemoglobin 8.7 (L) 13.7 - [facility].5 g/dL [facility] LABORATORY Hematocrit 26.8 (L) 40.5 - [facility] 48.5 % [facility] LABORATORY MCV 88.4 82.9 - [facility] 93.1 [facility] LABORATORY MCH 28.7 27.5 - [place] [facility] 32.1 pg [facility] LABORATORY MCHC 32.5 32.0 - [facility] 35.7 g/dL [facility] LABORATORY Platelets 311 145 - 357 [facility] x10(3)/[facility] LABORATORY RDWSD 40.9 36.0 - [facility] 45.0 [facility] LABORATORY RDWCV 12.6 11.4 - [facility] 13.8 % [facility] LABORATORY MPV 9.3 7.6 - 12.9 [facility] LABORATORY nRBC % Auto 0.0 % [facility] LABORATORY nRBC Abs Auto 0.000 0.000 - [place] [facility] 0.000 [facility] x10(3)/[facility] LABORATORY Specimen Anatomical Collection Method Collection Time Receive d Time (Source) Location / / Volume Laterality Blood 03/14/2021 12:35 03/14/2021 AM EST 12:41 AM EST Resulting Agency Comment Spec In Lab Sachi Ford MD HEMATOLOGY ORDERABLES Performing Organization Address City/State/[place] [address] (ABNORMAL) Phosphorus (03/14/2021 12:35 AM EST) athologist Signature Phosphorus 2.0 (L) 2.5 - 4.5 [facility] mg/dL [facility] LABORATORY Specimen Anatomical Collection Method Collection Time Receive d Time (Source) Location / / Volume Laterality Blood 03/14/2021 12:35 03/14/2021 AM EST 12:41 AM EST Resulting Agency Comment Spec In Lab Marlene Rodríguez MD CHEMISTRY ORDERABLES Performing Organization Address City/[facility]/ZIP Code Phon e Number [address] Magnesium (03/14/2021 12:35 AM EST) athologist Signature Magnesium 0.87 0.69 - 1.07 [facility]L [facility] LABORATORY Specimen Anatomical Collection Method Collection Time Receive d Time (Source) Location / / Volume Laterality Blood 03/14/2021 12:35 03/14/2021 AM EST 12:41 AM EST Resulting Agency Comment Spec In Lab Marlene Rodríguez MD CHEMISTRY ORDERABLES Performing Organization Address City/[facility] Code Phon e Number [address] (ABNORMAL) Basic Metabolic Panel (non-fasting) (03/14/2021 12:35 AM EST) athologist Signature Glucose Lvl 141 65 - 199 [facility] mg/dL [facility] LABORATORY Comment: Diabetes: >=200 mg/dL plus symp toms BUN 12 10 - 20 mg/dL [facility] LABORATORY Creatinine 0.60 (L) 0.80 - 1.50 mg/dL [facility] LABORATORY Sodium 135 135 - 145 mmol/L [facility] LABORATORY Potassium 3.7 3.5 - 5.0 mmol/L [facility] LABORATORY Comment: Please note: ??Patients with WBC >100,00 0 may have falsely elevated Potassium levels. ??For accurate Potassium quantif ication in these patients send serum separator tube (gold top) for subsequent determinations. ??Contact the Clinical Chemistry Laboratory if there are any qu estions. Chloride 103 98 - 107 mmol/L [facility] LABORATORY CO2 23 22 - 31 mmol/L [facility] LABORATORY Anion Gap 9 5 - 15 mmol/L [facility] LABORATORY Calcium 7.7 (L) 8.5 - 10.5 mg/dL [facility] LABORATORY Estimated GFR 109 >=60 mL/min/1.73 m?? [facility] LABORATORY Comment: This patient? s estimated [...] Organization Address City/State/[place] [address] (ABNORMAL) Differential, Automated (03/13/2021 9:01 PM EST) [facility] gist Method Time Signature Neutrophils % 71.7 % [facility] LABORATORY Neutr Abs (ANC) 6.70 (H) 1.70 - [facility] 6.10 [facility] x10(3)/[facility] L LABORATORY Lymphocytes % 13.5 % [facility] LABORATORY Lymphocytes Abs 1.3 0.9 - 3.2 [facility] x10(3)/[facility] LABORATORY Monocytes % 12.3 % [facility] LABORATORY Monocyte Abs 1.2 (H) 0.3 - 0.9 [facility] x10(3)/[facility] LABORATORY Eosinophils % 1.3 % [facility] LABORATORY Eosinophils Abs 0.1 0.0 - 0.4 [facility] x10(3)/[facility] LABORATORY Basophils % 0.2 % [facility] LABORATORY Basophils Abs 0.0 0.0 - 0.1 [facility] x10(3)/[facility] LABORATORY Immature Gran % 1.00 % [facility] LABORATORY Comment: Immature granulocytes(IG's)percentage an d absolute count will include metamyelocytes, myelocytes, and promyelo cytes. Blood smears from CBCs yielding IG's will be scanned manually for concor dance. If this scan disagrees with the automated IG or if promyelocytes are not ed, a manual differential will be performed. Lata Gran Abs 0.09 (H) 0.00 - 0.04 x10(3)/[facility] LABORATORY Specimen Anatomical Collection Method Collection Time Receive d Time (Source) Location / / Volume Laterality Blood 03/13/2021 9:01 PM 9:06 EST PM EST Resulting Agency Comment Spec In Lab Ruben Medrano Jr., MD HEMATOLOGY ORDERABLES Performing Organization Address City/State/[place] [address] (ABNORMAL) Hemogram (03/13/2021 9:01 PM EST) Analysis Performed At Patho logist Time Signature WBC 9.3 4.0 - 9.5 [facility] x10(3)/[facility] LABORATORY RBC 3.10 (L) 4.58 - [facility] 5.54 [facility] x10(6)/[facility] LABORATORY Hemoglobin 9.0 (L) 13.7 - [facility] 16.5 g/dL [facility] LABORATORY Hematocrit 27.8 (L) 40.5 - [facility] 48.5 % [facility] LABORATORY MCV 89.7 82.9 - [facility] 93.1 fL [facility] LABORATORY MCH 29.0 27.5 - [facility] 32.1 pg [facility] LABORATORY MCHC 32.4 32.0 - [facility] 35.7 g/dL [facility] LABORATORY Platelets 314 145 - 357 [facility] x10(3)/[facility] LABORATORY RDWSD 41.8 36.0 - [facility] CHANG 45.0 [facility] LABORATORY RDWCV 12.7 11.4 - [facility] 13.8 % [facility] LABORATORY MPV 9.0 7.6 - 12.9 [facility] LABORATORY nRBC % Auto 0.0 % [facility] LABORATORY nRBC Abs Auto 0.000 0.000 - [facility] 0.000 [facility] x10(3)/[facility] LABORATORY Specimen Anatomical Collection Method Collection Time Receive d Time (Source) Location / / Volume Laterality Blood 03/13/2021 9:01 PM 2 9:06 EST PM EST Resulting Agency Comment Spec In Lab Ruben Medrano Jr., MD HEMATOLOGY ORDERABLES Performing Organization Address City/[facility]/[place] [address] Heparin (unfractionated) Level (03/13/2021 9:01 PM EST) athologist Signature Heparin UFH <0.04 IU/mL [facility] LABORATORY Comment: Heparin (anti-Xa) levels should be [...] Organization Address City/State/[place] [address] [facility] [address] Drive (ABNORMAL) CK (03/13/2021 5:41 PM EST) athologist [facility] CK, Total 10,050 (H) 0 - 200 [facility] unit/L [facility] LABORATORY Specimen Anatomical Collection Method Collection Time Receive d Time (Source) Location / / Volume Laterality Blood 03/13/2021 5:41 PM 6:00 EST PM EST Resulting Agency Comment Spec In Lab Marlene Rodríguez MD CHEMISTRY ORDERABLES Performing Organization Address City/State/ZIP Code Phon e Number [address] (ABNORMAL) Basic Metabolic Panel (non-fasting) (03/13/2021 5:41 PM EST) athologist [facility] Glucose Lvl 122 65 - 199 [facility] mg/dL [facility] LABORATORY Comment: Diabetes: >=200 mg/dL plus symp toms BUN 11 10 - 20 mg/dL [facility] LABORATORY Creatinine 0.68 (L) 0.80 - 1.50 mg/dL [facility] LABORATORY Sodium 138 135 - 145 mmol/L [facility] LABORATORY Potassium 3.9 3.5 - 5.0 mmol/L [facility] LABORATORY Comment: Please note: ??Patients with WBC >100,00 0 may have falsely elevated Potassium levels. ??For accurate Potassium quantif ication in these patients send serum separator tube (gold top) for subsequent determinations. ??Contact the Clinical Chemistry Laboratory if there are any qu estions. Chloride 104 98 - 107 mmol/L [facility] LABORATORY CO2 24 22 - 31 mmol/L [facility] LABORATORY Anion Gap 10 5 - 15 mmol/L [facility] LABORATORY Calcium 8.0 (L) 8.5 - 10.5 mg/dL [facility] LABORATORY Estimated GFR 103 >=60 mL/min/1.73 m?? [facility] LABORATORY Comment: This patient? s estimated [...] Organization Address City/State/[place] [address] ECHOCARDIOGRAM COMPLETE W CONTRAST (03/13/2021 1:32 PM EST) P athologist Signature EF 65 [facility] Anatomical Region Laterality Modality Other Specimen (Source) Anatomical Location Collection Method / Collectio n Time Received Time / Laterality Volume 03/13/2021 Narrative 03/13/2021 2:16 PM EST Procedure: ?Transthoracic Echocardiogram Patient: ?RIO Torrez ?(Age): 1960(60y) Med Rec#: ? [id number] ?Sex: ?M ? [place] Loc: ? [facility] [place] ?Ht / Wt: ??174(cm)/96(kg) Pt. Loc: ?ICU ? BSA: ?2.1 Study Date: ?? 03/13/2021 ?Pt. Type: Inpatient Tape: ? Referring: OLIVA Referring: LUIS PURCLELICHARDJ Reading: Yoshi Bolivar ([id number]) Breeder Hen Service Technician: Humera Gomez Diagnosis: *Acute embolism and thrombosis [...] Vmax ?0.68 ? m/sec ? MV deceleration slsw222.66 ? m sec ? MV A-wave Vmax [...] ? 03/13/2021 14:15:42 Images reviewed and interpretation ver ied [facility] Cardiac Ultrasound Laboratory Procedure Note Yoshi Bolivar MD - 03/13/2021Formatti ng of this note might be different from the original. Procedure: Transthoracic Echocardiogram Patient: RIO Torrez (Age): (60y) Med Rec#: [id number] Sex: M [place] Loc: [facility] [place] Ht / Wt: 174(cm)/96(kg) Pt. Loc: ICU BSA: 2.1 Study Date: 03/13/2021 Pt. Type: Inpatie nt Tape: Referring: [email or web address] Referring: LUIS MDRICHARDJ Reading: Yoshi Bolivar ([id number]) Breeder Hen Service Technician: Humera Gomez Diagnosis: *Acute embolism and thrombosis [...] MV E-wave Vmax 0.68 m/sec MV deceleration fsua248.66 msec MV A-wave Vmax 0.85 m/sec MV [...] :42 Images reviewed and interpretation verif ied [facility] Cardiac Ultrasound Laboratory Marlene Rodríguez MD ECHO ORDERABLES (ABNORMAL) CK (03/13/2021 11:40 AM EST) athologist Signature CK, Total 10,859 (H) 0 - 200 [facility] unit/L [facility] LABORATORY Specimen Anatomical Collection Method Collection Time Receive d Time (Source) Location / / Volume Laterality Blood 03/13/2021 11:40 03/13/2021 AM EST 12:42 PM EST Resulting Agency Comment Spec In Lab Marlene Rodríguez MD CHEMISTRY ORDERABLES Performing Organization Address City/State/[place] [address] (ABNORMAL) Differential, Automated (03/13/2021 5:40 AM EST) Patholo gist Method Time Signature Neutrophils % 71.4 % [facility] LABORATORY Neutr Abs (ANC) 5.54 1.70 - [facility] 6.10 [facility] x10(3)/[facility] LABORATORY Lymphocytes % 11.3 % [facility] LABORATORY Lymphocytes Abs 0.9 0.9 - 3.2 [facility] x10(3)/[facility] LABORATORY Monocytes % 15.3 % [facility] LABORATORY Monocyte Abs 1.2 (H) 0.3 - 0.9 [facility] x10(3)/[facility] LABORATORY Eosinophils % 1.2 % [facility] LABORATORY Eosinophils Abs 0.1 0.0 - 0.4 [facility] x10(3)/[facility] LABORATORY Basophils % 0.3 % [facility] LABORATORY Basophils Abs 0.0 0.0 - 0.1 [facility] x10(3)/[facility] LABORATORY Immature Gran % 0.50 % [facility] LABORATORY Comment: Immature granulocytes(IG's)percentage an d absolute count will include metamyelocytes, myelocytes, and promyelo cytes. Blood smears from CBCs yielding IG's will be scanned manually for concor dance. If this scan disagrees with the automated IG or if promyelocytes are not ed, a manual differential will be performed. Lata Gran Abs 0.04 0.00 - 0.04 x10(3)/[facility] LABORATORY Specimen Anatomical Collection Method Collection Time Receive d Time (Source) Location / / Volume Laterality Blood 03/13/2021 5:40 AM 5:56 EST AM EST Resulting Agency Comment Spec In Lab Kamron Charles MD HEMATOLOGY ORDERABLES Performing Organization Address City/State/[place] [address] (ABNORMAL) Hemogram (03/13/2021 5:40 AM EST) Analysis Performed At Patho logist Time Signature WBC 7.8 4.0 - 9.5 [facility] x10(3)/[facility] LABORATORY RBC 3.09 (L) 4.58 - [facility] 5.54 [facility] x10(6)/[facility] LABORATORY Hemoglobin 8.8 (L) 13.7 - [facility] 16.5 g/dL [facility] LABORATORY Hematocrit 27.6 (L) 40.5 - [facility] 48.5 % [facility] LABORATORY MCV 89.3 82.9 - [facility] 93.1 [facility] LABORATORY MCH 28.5 27.5 - [facility] 32.1 pg [facility] LABORATORY MCHC 31.9 (L) 32.0 - [facility] 35.7 g/dL [facility] LABORATORY Platelets 294 145 - 357 [facility] x10(3)/[facility] LABORATORY RDWSD 42.4 36.0 - [facility] 45.0 [facility] RDWCV 13.0 11.4 - [facility] 13.8 % [facility] LABORATORY MPV 8.8 7.6 - 12.9 [facility] LABORATORY nRBC % Auto 0.0 % [facility] LABORATORY nRBC Abs Auto 0.000 0.000 - [facility] 0.000 [facility] x10(3)/[facility] LABORATORY Specimen Anatomical Collection Method Collection Time Receive d Time (Source) Location / / Volume Laterality Blood 03/13/2021 5:40 AM 2 5:56 EST AM EST Resulting Agency Comment Spec In Lab Kamron Charles MD HEMATOLOGY ORDERABLES Performing Organization Address City/State/[place] [address] Heparin (unfractionated) Level (03/13/2021 5:40 AM EST) athologist Signature Heparin UFH 0.27 IU/mL [facility] LABORATORY Comment: Heparin (anti-Xa) levels should be [...] Organization Address City/State/[place] [address] (ABNORMAL) CK (03/13/2021 5:40 AM EST) P athologist Signature CK, Total 9,271 (H) 0 - 200 [facility] unit/L [facility] LABORATORY Specimen Anatomical Collection Method Collection Time Receive d Time (Source) Location / / Volume Laterality Blood 03/13/2021 5:40 AM 2 5:56 EST AM EST Resulting Agency Comment Spec In Lab Martine Terri Gerardo DO CHEMISTRY ORDERABLES Performing Organization Address City/[facility]/ZIP Code Phon e Number [address] Phosphorus (03/13/2021 5:40 AM EST) athologist [facility] Phosphorus 2.5 2.5 - 4.5 [facility] mg/dL [facility] LABORATORY Specimen Anatomical Collection Method Collection Time Receive d Time (Source) Location / / Volume Laterality Blood 03/13/2021 5:40 AM 2 5:56 EST AM EST Resulting Agency Comment Spec In Lab Martine Terri Gerardo DO CHEMISTRY ORDERABLES Performing Organization Address City/State/[place] [address] (ABNORMAL) Basic Metabolic Panel (non-fasting) (03/13/2021 5:40 AM EST) athologist [facility] Glucose Lvl 126 65 - 199 [facility] mg/dL [facility] LABORATORY Comment: Diabetes: >=200 mg/dL plus symp toms BUN 10 10 - 20 mg/dL [facility] LABORATORY Creatinine 0.61 (L) 0.80 - 1.50 mg/dL [facility] LABORATORY Sodium 136 135 - 145 mmol/L [facility] LABORATORY Potassium 3.8 3.5 - 5.0 mmol/L [facility] LABORATORY Comment: Please note: ??Patients with WBC >100,00 0 may have falsely elevated Potassium levels. ??For accurate Potassium quantif ication in these patients send serum separator tube (gold top) for subsequent determinations. ??Contact the Clinical Chemistry Laboratory if there are any qu estions. Chloride 105 98 - 107 mmol/L [facility] LABORATORY CO2 23 22 - 31 mmol/L [facility] LABORATORY Anion Gap 8 5 - 15 mmol/L [facility] LABORATORY Calcium 7.8 (L) 8.5 - 10.5 mg/dL [facility] LABORATORY Estimated GFR 108 >=60 mL/min/1.73 m?? [facility] LABORATORY Comment: This patient? s estimated [...] Organization Address City/State/ZIP Code Phon e Number [address] Magnesium (03/13/2021 5:40 AM EST) P athologist Signature Magnesium 1.03 0.69 - 1.07 [facility]/L [facility] LABORATORY Comment: result rechecked-SW Specimen Anatomical Collection Method Collection Time Receive d Time (Source) Location / / Volume Laterality Blood 03/13/2021 5:40 AM 2 5:56 EST AM EST Resulting Agency Comment Spec In Lab Martine Gerardo DO CHEMISTRY ORDERABLES Performing Organization Address City/State/[place] [address] (ABNORMAL) Blood Gas Arterial (03/13/2021 5:35 AM EST) athologist Signature pH Art 7.41 7.35 - 7.45 [facility] LABORATORY Comment: Sample contains one or more air bubbles which may result in falsely elevated pO2, decreased pCO2 and increased pH. pCO2 Art 40 35 - 45 mmHg [facility] LABORATORY Comment: Sample contains one or more air bubbles which may result in falsely elevated pO2, decreased pCO2 and increased pH. pO2 Art 74 (L) 85 - 104 mmHg [facility] LABORATORY Comment: Sample contains one or more air bubbles which may result in falsely elevated pO2, decreased pCO2 and increased pH. HCO3 Art 25.0 20.0 - 26.0 mmol/L [facility] LABORATORY BE Art 0.4 -3.0 - 3.0 mmol/L [facility] LABORATORY Hgb Blood Gas 9.9 (L) 13.7 - 16.5 g/dL [facility] LABORATORY O2HB Art 93.8 (L) 94.0 - 97.0 % [facility] LABORATORY COHB Art 0.7 % [facility] LABORATORY Comment: Nonsmokers: ??0.5-1.5% COHB Smokers: ??Variable, but usually less th an 10% Toxic: 20 - 30% COHB Lethal: ??Greater than 60% COHB METHB Art 0.3 <=1.5 % [facility] LABORATORY Na Whole Blood 133 (L) 135 - 145 mmol/L [facility] LABORATORY K Whole Blood 3.7 3.5 - 5.0 mmol/L [facility] LABORATORY Comment: Please note: ??Patients with WBC >100,00 0 may have falsely elevated Potassium levels. ??Contact the Clinical Chemistry Laboratory if there are any questions. ICa Whole Blood 1.09 (L) 1.15 - 1.33 mmol/L [facility] LABORATORY Comment: Note: ??Total bilirubin higher than 20 m g/dL may lead to falsely low ionized calcium. CL Whole Blood 104 98 - 107 mmol/L [facility] LABORATORY Gluc Whole Bld 128 65 - 199 mg/dL [facility] LABORATORY Comment: Diabetes: >=200 mg/dL plus [...] Organization Address City/State/[place] [address] (ABNORMAL) Differential, Automated (03/13/2021 12:00 AM EST) [facility] Method Time Signature Neutrophils % 73.8 % [facility] LABORATORY Neutr Abs (ANC) 6.83 (H) 1.70 - [facility] 6.10 [facility] x10(3)/[facility] LABORATORY Lymphocytes % 12.5 % [facility] LABORATORY Lymphocytes Abs 1.2 0.9 - 3.2 [facility] x10(3)[facility] LABORATORY Monocytes % 12.9 % [facility] LABORATORY Monocyte Abs 1.2 (H) 0.3 - 0.9 [facility] x10(3)/[facility] LABORATORY Eosinophils % 0.1 % [facility] LABORATORY Eosinophils Abs 0.0 0.0 - 0.4 [facility] x10(3)[facility] LABORATORY Basophils % 0.3 % [facility] LABORATORY Basophils Abs 0.0 0.0 - 0.1 [facility] x10(3)[facility] LABORATORY Immature Gran % 0.40 % [facility] LABORATORY Comment: Immature granulocytes(IG's)percentage an d absolute count will include metamyelocytes, myelocytes, and promyelo cytes. Blood smears from CBCs yielding IG's will be scanned manually for concor dance. If this scan disagrees with the automated IG or if promyelocytes are not ed, a manual differential will be performed. Lata Gran Abs 0.04 0.00 - 0.04 x10(3)/[facility] LABORATORY Specimen (Source) Anatomical Collection Method Collection Time Re ceived Time Location / / Volume Laterality Blood 03/13/2021 03/13/2021 12:2 4 AM EST Resulting Agency Comment Spec In Lab Kamron Charles MD HEMATOLOGY ORDERABLES Performing Organization Address City/[facility]/[place] [address] (ABNORMAL) Hemogram (03/13/2021 12:00 AM EST) Analysis Performed At Patho logist Time Signature WBC 9.3 4.0 - 9.5 [facility] x10(3)/[facility] LABORATORY RBC 3.21 (L) 4.58 - [facility] 5.54 [facility] x10(6)/[facility] LABORATORY Hemoglobin 9.3 (L) 13.7 - [facility] 16.5 g/dL [facility] LABORATORY Hematocrit 28.4 (L) 40.5 - [facility] 48.5 % [facility] LAB[facility]ATORY MCV 88.5 82.9 - [facility] 93.1 [facility] LABORATORY MCH 29.0 27.5 - [facility] 32.1 pg [facility] LABORATORY MCHC 32.7 32.0 - [facility] 35.7 g/dL [facility] LABORATORY Platelets 298 145 - 357 [facility] x10(3)/[facility] LABORATORY RDWSD 42.0 36.0 - [facility] 45.0 [facility] LABORATORY RDWCV 12.9 11.4 - [facility] 13.8 % [facility] LABORATORY MPV 9.0 7.6 - 12.9 [facility] LABORATORY nRBC % Auto 0.0 % [facility] LABORATORY nRBC Abs Auto 0.000 0.000 - [facility] CHANG 0.000 [facility] x10(3)/[facility] LABORATORY Specimen (Source) Anatomical Collection Method Collection Time Re ceived Time Location / / Volume Laterality Blood 03/13/2021 03/13/2021 12:2 4 AM EST Resulting Agency Comment Spec In Lab Kamron Charles MD HEMATOLOGY ORDERABLES Performing Organization Address City/State/[place] [address] Heparin (unfractionated) Level (03/13/2021 12:00 AM EST) athologist [facility] Heparin UFH 0.94 IU/mL [facility] LABORATORY Comment: Heparin (anti-Xa) levels should be [...] Wiley MD HEMATOLOGY ORDERABLES Performing Organization Address City/[facility]/ZIP Code Phon e Number [address] (ABNORMAL) CK (03/13/2021 12:00 AM EST) athologist [facility] CK, Total 7,740 (H) 0 - 200 [facility] unit/L [facility] LABORATORY Specimen (Source) Anatomical Collection Method Collection Time Re ceived Time Location / / Volume Laterality Blood 03/13/2021 03/13/2021 12:2 4 AM EST Resulting Agency Comment Spec In Lab Martine Gerardo DO CHEMISTRY ORDERABLES Performing Organization Address City/State/[place] [address] Phosphorus (03/13/2021 12:00 AM EST) athologist Signature Phosphorus 3.1 2.5 - 4.5 [facility] mg/dL [facility] LABORATORY Specimen (Source) Anatomical Collection Method Collection Time Re ceived Time Location / / Volume Laterality Blood 03/13/2021 03/13/2021 12:2 4 AM EST Resulting Agency Comment Spec In Lab Martine Terri Gerardo DO CHEMISTRY ORDERABLES Performing Organization Address City/State/[place] [address] (ABNORMAL) Basic Metabolic Panel (non-fasting) (03/13/2021 12:00 AM EST) P athologist Signature Glucose Lvl 161 65 - 199 [facility] mg/dL [facility] LABORATORY Comment: Diabetes: >=200 mg/dL plus symp toms BUN 15 10 - 20 mg/dL [facility] LABORATORY Creatinine 0.73 (L) 0.80 - 1.50 mg/dL [facility] LABORATORY Sodium 132 (L) 135 - 145 mmol/L [facility] LABORATORY Potassium 3.4 (L) 3.5 - 5.0 mmol/L [facility] LABORATORY Comment: Please note: ??Patients with WBC >100,00 0 may have falsely elevated Potassium levels. ??For accurate Potassium quantif ication in these patients send serum separator tube (gold top) for subsequent determinations. ??Contact the Clinical Chemistry Laboratory if there are any qu estions. Chloride 101 98 - 107 mmol/L [facility] LABORATORY CO2 23 22 - 31 mmol/L [facility] LABORATORY Anion Gap 8 5 - 15 mmol/L [facility] LABORATORY Calcium 7.8 (L) 8.5 - 10.5 mg/dL [facility] LABORATORY Estimated GFR 100 >=60 mL/min/1.73 m?? [facility] LABORATORY Comment: This patient? s estimated [...] Organization Address City/State/ZIP Code Phon e Number [address] (ABNORMAL) Magnesium (03/13/2021 12:00 AM EST) P athologist Signature Magnesium 0.68 (L) 0.69 - 1.07 [facility] mmol/L [facility] LABORATORY Specimen (Source) Anatomical Collection Method Collection Time Re ceived Time Location / / Volume Laterality Blood 03/13/2021 03/13/2021 12:2 4 AM EST Resulting Agency Comment Spec In Lab Martine Terri Gerardo DO CHEMISTRY ORDERABLES Performing Organization Address City/State/[place] [address] (ABNORMAL) Blood Gas Arterial (03/12/2021 11:47 PM EST) Analysis Performed At Patho logist Time Signature pH Art 7.40 7.35 - [facility] CHANG 7.45 [facility] LABORATORY pCO2 Art 37 35 - 45 [facility] CHANG mmHg [facility] LABORATORY pO2 Art 76 (L) 85 - 104 [facility] mmHg [facility] LABORATORY HCO3 Art 22.6 20.0 - [facility] [place] 26.0 [facility] mmol/L [facility] LABORATORY BE Art -2.2 -3.0 - 3.0 [facility] mmol/L [facility] LABORATORY Hgb Blood Gas 10.0 (L) 13.7 - [facility] [place] 16.5 g/dL [facility] LABORATORY O2HB Art 94.2 94.0 - [facility] 97.0 % [facility] LABORATORY COHB Art 0.8 % [facility] LABORATORY Comment: Nonsmokers: ??0.5-1.5% COHB Smokers: ??Variable, but usually less th an 10% Toxic: 20 - 30% COHB Lethal: ??Greater than 60% COHB METHB Art 0.3 <=1.5 % [facility] LABORATORY Na Whole Blood 132 (L) 135 - 145 mmol/L [facility] LABORATORY K Whole Blood 3.3 (L) 3.5 - 5.0 mmol/L [facility] LABORATORY Comment: Please note: ??Patients with WBC >100,00 0 may have falsely elevated Potassium levels. ??Contact the Clinical Chemistry Laboratory if there are any questions. ICa Whole Blood 1.06 (L) 1.15 - 1.33 mmol/L [facility] LABORATORY Comment: Note: ??Total bilirubin higher than 20 m g/dL may lead to falsely low ionized calcium. CL Whole Blood 103 98 - 107 mmol/L [facility] LABORATORY Gluc Whole Bld 172 65 - 199 mg/dL [facility] LABORATORY Comment: Diabetes: >=200 mg/dL plus [...] Organization Address City/State/[place] [address] (ABNORMAL) BLOOD GAS 2 ARTERIAL (03/12/2021 5:23 PM EST) Analysis Performed At Patho logist Time Signature pH Art 7.36 7.35 - [facility] 7.45 [facility] LABORATORY pCO2 Art 34 (L) 35 - 45 [facility] mmHg [facility] LABORATORY pO2 Art 75 (L) 85 - 104 [facility] LABORATORY HCO3 Art 19.0 (L) 20.0 - [facility] 26.0 [facility] mmol/[facility] LABORATORY BE Art -6.4 (L) -3.0 - 3.0 [facility] mmol/L [facility] LABORATORY Hgb Blood Gas 11.3 (L) 13.7 - [facility] 16.5 g/dL [facility] O2HB Art 92.6 (L) 94.0 - [facility] 97.0 % [facility] LABORATORY COHB Art 0.3 % [facility] LABORATORY Comment: Nonsmokers: 0.5-1.5% COHB Smokers: Variable, but usually less than 10% Toxic: 20-30% COHB Lethal: Greater than 60% COHB METHB Art 0.6 <=1.5 % [facility] LABORATORY Na Whole Blood 134 (L) 135 - 145 mmol/L [facility] LABORATORY K Whole Blood 3.7 3.5 - 5.0 mmol/L [facility] LABORATORY Comment: Please note: Patients with WBC >100,000 may have falsely elevated Potassium levels. Contact the Clinical Chemistry L aboratory if there are any questions. ICa Whole Blood 1.09 (L) 1.15 - 1.33 mmol/L [facility] LABORATORY Comment: Note: ??Total bilirubin higher than 20 m g/dL may lead to falsely low ionized calcium. CL Whole Blood 105 98 - 107 mmol/L [facility] LABORATORY Gluc Whole Bld 145 65 - 199 mg/dL [facility] LABORATORY Comment: Diabetes: >=200 mg/dL plus symp toms. Lactate WB 1.3 0.5 - 2.2 mmol/L [facility] LABORATORY FIO2 Art 21 % [facility] LABORATORY PF Ratio Art 357 [facility] LABORATORY Specimen Anatomical Collection Method Collection Time Receive d Time (Source) Location / / Volume Laterality Blood 03/12/2021 5:23 PM 5:23 EST PM EST Martine Gerardo DO CHEMISTRY ORDERABLES Performing Organization Address City/State/[place] [address] (ABNORMAL) CK (03/12/2021 4:51 PM EST) P athologist Signature CK, Total 5,625 (H) 0 - 200 [facility] LABORATORY Comment: result rechecked-cher Specimen Anatomical Collection Method Collection Time Receive d Time (Source) Location / / Volume Laterality Blood Venous Draw / 03/12/2021 4:51 PM 03/12/19 22 5:16 Unknown EST PM EST Resulting Agency Comment Spec In Lab Kamron Charles MD CHEMISTRY ORDERABLES Performing Organization Address City/State/[place] [address] [facility] LAB[address] Drive (ABNORMAL) Differential, Automated (03/12/2021 4:51 PM EST) Patholo gist Method Time Signature Neutrophils % 77.7 % [facility] LABORATORY Neutr Abs (ANC) 11.01 (H) 1.70 - [facility] 6.10 [facility] x10(3)/[facility] LABORATORY Lymphocytes % 12.9 % [facility] LABORATORY Lymphocytes Abs 1.8 0.9 - 3.2 [facility] x10(3)/[facility] LABORATORY Monocytes % 8.8 % [facility] LABORATORY Monocyte Abs 1.2 (H) 0.3 - 0.9 [facility] x10(3)/[facility] LABORATORY Eosinophils % 0.1 % [facility] LABORATORY Eosinophils Abs 0.0 0.0 - 0.4 [facility] x10(3)/[facility] LABORATORY Basophils % 0.1 % [facility] LABORATORY Basophils Abs 0.0 0.0 - 0.1 [facility] x10(3)/[facility] LABORATORY Immature Gran % 0.40 % [facility] LABORATORY Comment: Immature granulocytes(IG's)percentage an d absolute count will include metamyelocytes, myelocytes, and promyelo cytes. Blood smears from CBCs yielding IG's will be scanned manually for concor dance. If this scan disagrees with the automated IG or if promyelocytes are not ed, a manual differential will be performed. Lata Gran Abs 0.06 (H) 0.00 - 0.04 x10(3)/[facility] LABORATORY Specimen Anatomical Collection Method Collection Time Receive d Time (Source) Location / / Volume Laterality Blood 03/12/2021 4:51 PM 2 5:16 EST PM EST Resulting Agency Comment Spec In Lab Kamron Charles MD HEMATOLOGY ORDERABLES Performing Organization Address City/State/[place] [address] (ABNORMAL) Hemogram (03/12/2021 4:51 PM EST) Analysis Performed At Patho logist Time Signature WBC 14.2 (H) 4.0 - 9.5 [facility] x10(3)/[facility] LABORATORY RBC 3.63 (L) 4.58 - [facility] 5[facility]54 [facility] x10(6)/[facility] LABORATORY Hemoglobin 10.6 (L) 13.7 - [facility] 16.5 g/dL [facility] LABORATORY Hematocrit 32.7 (L) 40.5 - [facility] 48.5 % [facility] LABORATORY MCV 90.1 82.9 - [facility] 93.1 [facility] LABORATORY MCH 29.2 27.5 - [facility] 32.1 pg [facility] LABORATORY MCHC 32.4 32.0 - [facility] 35.[facility] g/dL [facility] LABORATORY Platelets 409 (H) 145 - 357 [facility] x10(3)/[facility] LABORATORY RDWSD 43.0 36.0 - [facility] 45.0 [facility] LABORATORY RDWCV 12.9 11.4 - [facility] 13.8 % [facility] LABORATORY MPV 9.2 7.6 - 12.9 [facility] LABORATORY nRBC % Auto 0.0 % [facility] LABORATORY nRBC Abs Auto 0.000 0.000 - [facility] 0.000 [facility] x10(3)/[facility] LABORATORY Specimen Anatomical Collection Method Collection Time Receive d Time (Source) Location / / Volume Laterality Blood 03/12/2021 4:51 PM 2 5:16 EST PM EST Resulting Agency Comment Spec In Lab Kamron Charles MD HEMATOLOGY ORDERABLES Performing Organization Address City/State/[place] [address] (ABNORMAL) Prothrombin Time (03/12/2021 4:51 PM EST) P athologist Signature PT 20.6 (H) 9.4 - 12.5 [facility] LABORATORY INR 1.8 [facility] LABORATORY Comment: An INR <2.0 indicates [...] Organization Address City/State/[place] [address] (ABNORMAL) APTT (03/12/2021 4:51 PM EST) P athologist Signature PTT >160 25 - 37 [facility] (Critical) [facility] LABORATORY Comment: Critical Result called by ?? [...] Organization Address City/State/ZIP Code Phon e Number [address] Phosphorus (03/12/2021 4:51 PM EST) athologist Signature Phosphorus 3.6 2.5 - 4.5 [facility]dL [facility] LABORATORY Specimen Anatomical Collection Method Collection Time Receive d Time (Source) Location / / Volume Laterality Blood 03/12/2021 4:51 PM 2 5:16 EST PM EST Resulting Agency Comment Spec In Lab Martine Terri Gerardo DO CHEMISTRY ORDERABLES Performing Organization Address City/[facility]/ZIP Code Phon e Number [address] Magnesium (03/12/2021 4:51 PM EST) athologist Signature Magnesium 0.76 0.69 - 1.07 [facility] mmol/L [facility] LABORATORY Specimen Anatomical Collection Method Collection Time Receive d Time (Source) Location / / Volume Laterality Blood 03/12/2021 4:51 PM 2 5:16 EST PM EST Resulting Agency Comment Spec In Lab Martine Aragonduy Gerardo DO CHEMISTRY ORDERABLES Performing Organization Address City/[facility]/[place] [address] (ABNORMAL) Basic Metabolic Panel (non-fasting) (03/12/2021 4:51 PM EST) athologist Signature Glucose Lvl 149 65 - 199 [facility] mg/dL [facility] LABORATORY Comment: Diabetes: >=200 mg/dL plus symp toms BUN 15 10 - 20 mg/dL [facility] LABORATORY Creatinine 0.78 (L) 0.80 - 1.50 mg/dL [facility] LABORATORY Sodium 138 135 - 145 mmol/L [facility] LABORATORY Potassium 4.3 3.5 - 5.0 mmol/L [facility] LABORATORY Comment: Please note: ??Patients with WBC >100,00 0 may have falsely elevated Potassium levels. ??For accurate Potassium quantif ication in these patients send serum separator tube (gold top) for subsequent determinations. ??Contact the Clinical Chemistry Laboratory if there are any qu estions. Chloride 107 98 - 107 mmol/L [facility] LABORATORY CO2 17 (L) 22 - 31 mmol/L [facility] LABORATORY Anion Gap 14 5 - 15 mmol/L [facility] LABORATORY Calcium 8.0 (L) 8.5 - 10.5 mg/dL [facility] LABORATORY Estimated GFR 97 >=60 mL/min/1.73 m?? [facility] LABORATORY Comment: This patient? s estimated [...] Organization Address City/State/[place] [address] (ABNORMAL) Heparin (unfractionated) Level (03/12/2021 4:51 PM EST) [facility] Method Time Signature Heparin UFH >2.00 IU/mL [facility] Level (Critical) [facility] LABORATORY Comment: Critical Result called by [...] Wiley MD HEMATOLOGY ORDERABLES Performing Organization Address City/[facility]/[place] [address] Prepare RBC (03/12/2021 4:40 PM EST) athologist Signature Dispensed? No [facility] LABORATORY Specimen Anatomical Collection Method Collection Time Receive d Time (Source) Location / / Volume Laterality Blood 03/12/2021 4:40 PM 2 4:39 EST PM EST Nilda Tineo CRNA BLOOD BANK ORDERABLES Performing Organization Address City/[facility]/[place] [address] (ABNORMAL) CK (03/12/2021 3:27 PM EST) P athologist Signature CK, Total 2,740 (H) 0 - 200 [facility] unit/L [facility] LABORATORY Specimen Anatomical Collection Method Collection Time Receive d Time (Source) Location / / Volume Laterality Blood 03/12/2021 3:27 PM 2 3:35 EST PM EST Resulting Agency Comment Spec In Lab Martine Gerardo DO CHEMISTRY ORDERABLES Performing Organization Address City/[facility]/[place] [address] (ABNORMAL) BLOOD GAS 2 ARTERIAL (03/12/2021 12:09 PM EST) Analysis Performed At Patho logist Time Signature pH Art 7.40 7.35 - [facility] 7.45 [facility] LABORATORY pCO2 Art 38 35 - 45 [facility] mmHg [facility] LABORATORY pO2 Art 248 (H) 85 - 104 [facility] mmHg [facility] LABORATORY HCO3 Art 23.2 20.0 - [facility] 26.0 [facility] mmol/L [facility] LABORATORY BE Art -1.7 -3.0 - 3.0 [facility] mmol/L [facility] LABORATORY Hgb Blood Gas 11.4 (L) 13.7 - [facility] 16.5 g/dL [facility] LABORATORY O2HB Art 98.8 (H) 94.0 - [facility] 97.0 % [facility] LABORATORY COHB Art 0.3 % [facility] LABORATORY Comment: Nonsmokers: 0.5-1.5% COHB Smokers: Variable, but usually less than 10% Toxic: 20-30% COHB Lethal: Greater than 60% COHB METHB Art 0.3 <=1.5 % [facility] Na Whole Blood 136 135 - 145 mmol/L [facility] K Whole Blood 4.0 3.5 - 5.0 mmol/L [facility] Comment: Please note: Patients with WBC >100,000 may have falsely elevated Potassium levels. Contact the Clinical Chemistry L aboratory if there are any questions. ICa Whole Blood 1.10 (L) 1.15 - 1.33 mmol/L [facility] Comment: Note: ??Total bilirubin higher than 20 m g/dL may lead to falsely low ionized calcium. CL Whole Blood 105 98 - 107 mmol/L [facility] Gluc Whole Bld 116 65 - 199 mg/dL [facility] Comment: Diabetes: >=200 mg/dL plus symp toms. Lactate WB 0.7 0.5 - 2.2 mmol/L [facility] FIO2 Art 66 % [facility] Flow Art 0.6 LPM [facility] PF Ratio Art 376 [facility] Temp Art 36.9 Celsius [facility] Specimen Anatomical Collection Method Collection Time Receive d Time (Source) Location / / Volume Laterality Blood 03/12/2021 12:09 03/12/2021 PM EST 12:09 PM EST Rosemary Wiley MD CHEMISTRY ORDERABLES Performing Organization Address City/[facility]/[place] [address] IR OR VASC Aniogram Image Storage Only (03/12/2021 12:08 PM EST) Specimen (Source) Anatomical Location Collection Method / Collectio n Time Received Time / Laterality Volume Narrative RAD - 03/12/2021 12:08 PM EST This exam is auto-finalizing. It's purpo se is for storage only. Marlene Rodríguez MD IMG FILM LIBRARY ORDERABLES Performing Organization Address City/[facility] Code Phon e Number [place], [place] COVID-19 PCR (03/12/2021 10:40 AM EST) [facility] gist Method Time Signature SARS-CoV-2 Not Detected Not Detected [facility] RNA PCR [facility] Comment: [...] using the Simplexa COVID-19 Direct Assay by [employer] as authorized by the FDA issued Emergency [...] Department of Pathology and Laboratory Medicine at [facility], certified under the Clinical Laboratory Improvement [...] clinical management guidance information are available at [facility] CDC Coronavirus Disease 2019 (COVID-19) webpage under Information fo r Healthcare Professionals (https://www.cdc.gov/coronavirus/2019-nc ov/hcp/index.html). Additional information about this and ot her EUA tests can be found in provider and patient fact sheets at the following FDA website: https://www.fda.gov/medical-devices/phdbtharfxu-hyzgtou-1390-rvuxq-90-gbutpclho- cny-qgowudehuqmhjm-cozlewe-devices/szqlj-tvbgqglqtyn-lzsp SARS-CoV-2 Source VISITOR SERVICES COORDINATOR Swab [facility] Specimen (Source) Anatomical Collection Method Collection Time Re ceived Time Location / / Volume Laterality Nasopharyngeal Swab 03/12/2021 10:40 03/02 AM EST 12:37 PM EST Comment: Symptoms->Surveillance Resulting Agency Comment Spec In Lab Reinaldo Merino MD MICROBIOLOGY - GENERAL ORDER LARRY Performing Organization Address City/State/[place] [address] Prepare RBC (03/12/2021 10:15 AM EST) athologist Signature Dispensed? Yes [facility] Specimen Anatomical Collection Method Collection Time Receive d Time (Source) Location / / Volume Laterality Blood 03/12/2021 10:15 03/12/2021 AM EST 10:12 AM EST Nilda Tineo CRNA BLOOD BANK ORDERABLES Performing Organization Address City/State/ZIP Code Phon e Number [place] [id number] Duplex for DVT, Leg, Unilat (03/12/2021 8:49 AM EST) Component Value Ref Test Analysis Performed At [facility] Range Method Time Signature VB Text Department: Vascular Surgery Lab VASCUBASE Report Patient: [id number] (AMILCAR PATE) CPT: 01212 Referring Physician: REINALDO MERINO ?? Phone: Indications: [...] who have questions please contact the health manager career that requested your imaging first. ? Narrative [...] the thorax is provided for comparison. FINDINGS: [place] Images: Noncontributory. CTA OF THE CHEST: Pulmonary [...] who have questions please contact the health manager career that requested your imaging first. ? Narrative [...] the thorax is provided for comparison. FINDINGS: [place] Images: Noncontributory. CTA OF THE CHEST: Pulmonary [...] Agency Comment Unexpected Finding Camacho Sevilla MD [facility] ORDERABLES Request For 2nd Read CT [...] of outside imaging study. * ??Sending Institution [facility] * ??Date of exam [id number] * ??I [...] prior ex amination provided for comparison. FINDINGS: [place] Images: Noncontributory. Lower chest: Visualized structures withi [...] who have questions please contact the health manager career that requested your imaging first. ? --------ORIGINAL REPORT -------- EXAMINATION: * ??REQUEST FOR 2ND READ CT ABDOMEN AND PELVIS * ??CT OF THE ABDOMEN AND PELVIS WITH IN TRAVENOUS CONTRAST. CLINICAL HISTORY: 60-year-old male with initially presenting with low back pain right lower extremity is cold and mottle d. ??Request for second interpretation of outside imaging study. * ??Sending Institution [facility] * ??Date of exam [id number] * ??I [...] prior ex amination provided for comparison. FINDINGS: [place] Images: Noncontributory. Lower chest: Visualized structures withi [...] who have questions please contact the health manager career that requested your imaging first. ? Impressions 03/12/2021 8:12 AM EST 1. ??Focal [...] who have questions please contact the health manager career that requested your imaging first. ? Narrative 03/12/2021 8:12 AM EST EXAMINATION: * ??REQUEST FOR 2ND READ CT ABDOMEN AND PELVIS * ??CT OF THE ABDOMEN AND PELVIS WITH IN TRAVENOUS CONTRAST. CLINICAL HISTORY: 60-year-old male with initially presenting with low back pain right lower extremity is cold and mottle d. ??Request for second interpretation of outside imaging study. * ??Sending Institution [facility] * ??Date of exam 20210221 * ??I [...] prior ex amination provided for comparison. FINDINGS: [place] Images: Noncontributory. Lower chest: Visualized structures withi [...] of outside imaging study. * Sending Institution [facility] * Date of exam [id number] * I [...] prior ex amination provided for comparison. FINDINGS: [place] Images: Noncontributory. Lower chest: Visualized structures withi [...] ho have questions please contact the health manager career that requested your imaging first. Camacho Sevilla MD IMG OUTSIDE INTERPRETATION O [...] 472 ms MUSE SYSTEM (Bezet) Calculated P [place] 28 degrees MUSE SYSTEM Calculated R [place] -6 degrees MUSE SYSTEM Calculated T [place] 55 degrees MUSE SYSTEM INTERPRETATION Normal sinus rhythm MUSE SYSTEM Nonspecific T wave abnormality Abnormal ECG When compared with ECG of 26-FEB-2021 17:47, No significant change was found I personally reviewed the tracing and edited the fellows int erpretation Confirmed by fellow Pato Corcoran ([id number]) on 03/12/2021 10 :37:34 PM Confirmed by [...] Time Signature pH Luis 7.40 7.32 - [facility] 7.42 [facility] pCO2 Luis 34 (L) 41 - 51 [facility] pO2 Luis 34 25 - 40 [facility] HCO3 Luis 20.5 mmol/L [facility] BE Luis -4.3 mmol/L [facility] Hgb Blood Gas 11.4 (L) 13.7 - [facility] 16.5 g/dL [facility] O2HB Luis 65.1 % [facility] COHB Luis 0.8 % [facility] Comment: Nonsmokers: 0.5-1.5% COHB Smokers: Variable, but usually less than 10% Toxic: 20-30% COHB Lethal: Greater than 60% COHB METHB Luis 0.7 <=1.5 % [facility] Na Whole Blood 135 135 - 145 mmol/L [facility] K Whole Blood 3.4 (L) 3.5 - 5.0 mmol/L [facility] Comment: Please note: Patients with WBC >100,000 may have falsely elevated Potassium levels. Contact the Clinical Chemistry L aboratory if there are any questions. ICa Whole Blood 1.11 (L) 1.15 - 1.33 mmol/L [facility] Comment: Note: ??Total bilirubin higher than 20 m g/dL may lead to falsely low ionized calcium. CL Whole Blood 102 98 - 107 mmol/L [facility] Gluc Whole Bld 135 65 - 199 mg/dL [facility] Comment: Diabetes: >=200 mg/dL plus symp toms Lactate WB 1.4 0.5 - 2.2 mmol/L [facility] BGas Source Venous [facility] Specimen Anatomical Collection Method Collection Time Receive d Time (Source) Location / / Volume Laterality Blood 03/12/2021 5:13 AM 2 5:13 EST AM EST Camacho Sevilla MD CHEMISTRY ORDERABLES Performing Organization Address City/[facility]/ZIP Code Phon e Number [address] Bilirubin, Direct (03/12/2021 5:11 AM EST) P athologist Signature Bili, Direct 0.1 0.0 - 0.3 [facility] mg/dL [facility] Specimen Anatomical Collection Method Collection Time Receive d Time (Source) Location / / Volume Laterality Blood 03/12/2021 5:11 AM 2 5:18 EST AM EST Resulting Agency Comment Spec In Lab Camacho Sevilla MD CHEMISTRY ORDERABLES Performing Organization Address City/State/[place] [address] (ABNORMAL) Differential, Automated (03/12/2021 5:11 AM EST) Patholo gist Method Time Signature Neutrophils % 88.1 % [facility] Neutr Abs (ANC) 11.19 (H) 1.70 - [facility] 6.10 [facility] x10(3)/[facility] L LABORATORY Lymphocytes % 6.5 % [facility] Lymphocytes Abs 0.8 (L) 0.9 - 3.2 [facility] x10(3)/[facility] LABORATORY Monocytes % 4.6 % [facility] Monocyte Abs 0.6 0.3 - 0.9 [facility] x10(3)/[facility] LABORATORY Eosinophils % 0.0 % [facility] Eosinophils Abs 0.0 0.0 - 0.4 [facility] x10(3)/[facility] LABORATORY Basophils % 0.2 % [facility] Basophils Abs 0.0 0.0 - 0.1 [facility] x10(3)/[facility] LABORATORY Immature Gran % 0.60 % [facility] Comment: Immature granulocytes(IG's)percentage an d absolute count will include metamyelocytes, myelocytes, and promyelo cytes. Blood smears from CBCs yielding IG's will be scanned manually for concor dance. If this scan disagrees with the automated IG or if promyelocytes are not ed, a manual differential will be performed. Lata Gran Abs 0.08 (H) 0.00 - 0.04 x10(3)/[facility] LABORATORY Specimen Anatomical Collection Method Collection Time Receive d Time (Source) Location / / Volume Laterality Blood 03/12/2021 5:11 AM 5:18 EST AM EST Resulting Agency Comment Spec In Lab Camacho Sevilla MD HEMATOLOGY ORDERABLES Performing Organization Address City/State/[place] [address] (ABNORMAL) Hemogram (03/12/2021 5:11 AM EST) Analysis Performed At Patho logist Time Signature WBC 12.7 (H) 4.0 - 9.5 [facility] x10(3)/[facility] LABORATORY RBC 3.74 (L) 4.58 - [facility] 5.54 [facility] x10(6)/[facility] LABORATORY Hemoglobin 10.7 (L) 13.7 - [facility] 16.5 g/dL [facility] Hematocrit 33.2 (L) 40.5 - [facility] 48.5 % [facility] MCV 88.8 82.9 - [facility] 93.1 [facility]ORY MCH 28.6 27.5 - [facility] 32.1 pg [facility] MCHC 32.2 32.0 - [facility] 35.7 g/dL [facility] Platelets 523 (H) 145 - 357 [facility] x10(3)/[facility] LABORATORY RDWSD 40.6 36.0 - [facility] 45.0 [facility] LABORATORY RDWCV 12.4 11.4 - [facility] 13.8 % [facility] MPV 8.9 7.6 - 12.9 [facility] LABORATORY nRBC % Auto 0.0 % [facility] nRBC Abs Auto 0.000 0.000 - [facility] 0.000 [facility] x10(3)/[facility] LABORATORY Specimen Anatomical Collection Method Collection Time Receive d Time (Source) Location / / Volume Laterality Blood 03/12/2021 5:11 AM 5:18 EST AM EST Resulting Agency Comment Spec In Lab Camacho Sevilla MD HEMATOLOGY ORDERABLES Performing Organization Address City/State/[place] [address] (ABNORMAL) Comprehensive metabolic panel (non-fasting) (03/12/2021 5:11 AM EST) P athologist Signature Glucose Lvl 135 65 - 199 [facility] mg/dL [facility] Comment: Diabetes: >=200 mg/dL plus symp toms BUN 17 10 - 20 mg/dL [facility] Creatinine 0.70 (L) 0.80 - 1.50 mg/dL [facility] Sodium 138 135 - 145 mmol/L [facility] Potassium 3.4 (L) 3.5 - 5.0 mmol/L [facility] Comment: Please note: ??Patients with WBC >100,00 0 may have falsely elevated Potassium levels. ??For accurate Potassium quantif ication in these patients send serum separator tube (gold top) for subsequent determinations. ??Contact the Clinical Chemistry Laboratory if there are any qu estions. Chloride 105 98 - 107 mmol/L [facility] CO2 19 (L) 22 - 31 mmol/L [facility] Anion Gap 14 5 - 15 mmol/L [facility] Calcium 7.8 (L) 8.5 - 10.5 mg/dL [facility] Total Protein 6.4 6.1 - 8.0 g/dL [facility] Albumin 3.4 3.2 - 5.2 g/dL [facility] AST 14 0 - 39 unit/L [facility] ALT 13 0 - 55 unit/L [facility] Alk Phos 80 40 - 130 unit/L [facility] Total Bilirubin 0.4 0.2 - 1.3 mg/dL [facility] Estimated GFR 102 >=60 mL/min/1.73 m?? [facility] Comment: This patient? s estimated [...] Organization Address City/State/[place] [address] Type and Screen Validity (03/12/2021 5:10 AM EST) [facility] gist Method Time Signature T&S only valid [facility] FREDY DOWNING at [facility] Comment: This Type and Screen result is only valid at the [facility] Specimen Anatomical Collection Method Collection Time Receive d Time (Source) Location / / Volume Laterality Blood 03/12/2021 5:10 AM 2 5:17 EST AM EST Resulting Agency Comment Spec In Lab Camacho Sevilla MD BLOOD BANK ORDERABLES Performing Organization Address City/State/ZIP Code Phon e Number [address] ABORH Recheck Status (03/12/2021 5:10 AM EST) [facility] Method Time Signature ABORH Recheck Order Placed [facility] ABORH Type Complete [facility] LABORATORY Specimen Anatomical Collection Method Collection Time Receive d Time (Source) Location / / Volume Laterality Blood 03/12/2021 5:10 AM 2 5:17 EST AM EST Resulting Agency Comment Spec In Lab Camacho Sevilla MD BLOOD BANK ORDERABLES Performing Organization Address City/State/[place] [address] Antibody screen (03/12/2021 5:10 AM EST) [facility] Method Time Signature Ab Screen Negative [facility] LABORATORY Expires at 03/15/2021 FREDY DOWNING [id number] on: [facility] Specimen Anatomical Collection Method Collection Time Receive d Time (Source) Location / / Volume Laterality Blood 03/12/2021 5:10 AM 2 5:17 EST AM EST Resulting Agency Comment Spec In Lab Camacho Sevilla MD BLOOD BANK ORDERABLES Performing Organization Address City/[facility]/[place] [address] ABO/Rh Typing (03/12/2021 5:10 AM EST) P athologist Signature ABORh Type O Pos [facility] Specimen Anatomical Collection Method Collection Time Receive d Time (Source) Location / / Volume Laterality Blood 03/12/2021 5:10 AM 5:17 EST AM EST Resulting Agency Comment Spec In Lab Camacho Sevilla MD BLOOD BANK ORDERABLES Performing Organization Address City/State/[place] [address] Film Library- Storage Only CT Abdomen & Pelvis (02/21/2021 12:00 AM EST) Specimen (Source) Anatomical Location Collection Method / Collectio n Time Received Time / Laterality Volume Narrative SHAYNE - 03/12/2021 3:53 AM EST This exam is auto-finalizing. It's purpo se is for storage only. Rosemary Wiley MD IMG FILM LIBRARY ORDERABLES Performing Organization Address City/State/ZIP Code Phon e Number [place], [place] SCAN DOC: IMPLANTABLE DEVICES (03/12/2020 12:00 [...] on Thu03/13/21 at 1532, Until Thu03/20/21 at 171, Pain, severe pain (7-10), May give an [...] on Thu03/15/21 at 0937, Until Thu03/20/21 at 171, for discomfort with PIV ins ertion, Routine [...] team.)2113 (Given - Provider: Charlene Concepcion RN) 0319 (Given - Provider: Charlene Modi RN)0936 (Given [...] RN)2114 (Given - Provider: Charlene Concepcion RN) 0936 [...] Admin Adt) 1050 (Given - Provider: Sydnie Meredith RN) 0900 ( Not Given - Provider: Carolina [...] (Given - Provider: Cristina Lozano, JOSE ELIAS)1035 (MAR Hold - Provider: Admin Adt - [...] Patel RN) 0936 (Given - Provider: Carolina Bullard [...] Normal Nir ine 0.9) flush 5 mL 09 (Given - Provider: Rosita Patel RN)2107 (Given - Provider: Cristina Lozano RN) 08 (Given - Provider: Rosita Patel RN)2114 (Given - Provider: Charlene Concepcion RN) 09 (Not Given - Provider: Carolina Bullard [...] Lozano RN) 0844 (Given - Provider: Rosita P Jorge, RN)2115 (Given - Provider: Charlene Concepcion RN) 0937 [...] 03/20/2021 bisacodyL (Dulcolax) suppository 10 mg 1035 ([facility] Hold - Provider: Admin Adt - Reason: Transfer to a Procedural area)1419 ([facility] Unhold - Provider: Admin Adt) 10 mg, [...] 0808 (Given - Provider: Bee Kaplan RN)1035 ([facility] Hold - Provider: Admin Adt - Reason: Transfer to a Procedural area)1419 ([facility] Unhold - Provider: Admin Adt) 500-1,000 mg, Oral, EVERY 4 HOURS PRN, S tarting on Thu03/18/21 at 0728, Until Thu03/20/21 at 1712, Heartburn, Give 500 mg (1 tablet) for mild to moderate heartburn. Give 1,000 mg (2 tablets) for severe heartburn., Routine HYDROmorphone (Dilaudid) (1 mg/mL) injection syringe 0 .2 mg(Linked Group 2) 1035 ([facility] Hold - Provider: Admin Adt - Reason: Transfer to a Procedural area)1209 (See Alternative - Provider: Laura Cartagena RN)1419 ([facility] Unhold - Provider: Admin Adt) 0.2 mg, [...] 0019 (Given - Provider: Hannah Lozano RN)1035 ([facility] Hold - Provider: Admin Adt - Reason: Transfer to a Procedural area)1419 ([facility] Unhold - Provider: Admin Adt)210 (Given - Provider: Cristina Lozano RN) 211 (Given - Provider: Charlene Concepcion RN) 9 [...] - Reason: Transfer to a Procedural area)1419 ([facility] Unhold - Provider: Admin Adt) 1049 (Given - Provider: Sydnie lee RN)2240 (See Alternative - Provider: Charlene Concepcion RN) 0546 (See Alternative - Provider: Charlene Concepcion RN) 10 mg, Oral, EVERY 4 HOURS PRN, Starting on Thu03/12/21 at 1644, Until Thu03/20/21 at 1712, Pain, severe pain (7-10), Routine oxyCODONE (Roxicodone) tablet 5 mg(Linked Group 4) 103 5 ([facility] Hold - Provider: Admin Adt - Reason: Transfer to a Procedural area)1419 ([facility] Unhold - Provider: Admin Adt) 1049 (See Alternative - Provider: Sheila Meredith RN)2240 (Given - Provider: Charlene Concepcion RN) 0546 (Given - Provider: Charlene Concepcion RN) 5 mg, Oral, EVERY 4 HOURS PRN, Starting on Thu03/12/21 at 1644, Until Thu03/20/21 at 1712, Pain, moderate pain (4-6), Routine potassium bicarbonate (Effer-K) effervescent tablet 20 -60 mEq 1035 ([facility] Hold - Provider: Admin Adt - Reason: Transfer to a Procedural area)1419 ([facility] Unhold - Provider: Admin Adt) 20-60 mEq, Per NG tube, EVERY 4 HOURS WI N, Starting on Thu03/13/21 at 0104, Until [...] Routine documented in this encounter Care Teams Sound Editor Relationship Specialty Start Date End Date None PCP - General 03/12/21 04/25/21 None documented as of this encounter
--- OUTSIDE RECORDS SUMMARY | 2022-01-27 16:05 | XMS_ITS | Encounter Summary ---
:1960 Author Organization [facility] Address [address] [place] [address] Care Team Providers Name Role Phone None Primary Care Provider Unavailable Encounter Details Date Type Department Care Team Description 03/12/2021 Ancillary Procedure [place] [address] Social History Tobacco Use Types Packs/Day [...] Name Priority Date/Time Associated Diagnosis Comme nts IR OR VASC Routine 03/12/2021 12:08 PM Results for this ANGIOGRAM IMAGE EST procedure ar e in STORAGE ONLY the results section. documented in this encounter Results IR OR VASC Aniogram Image Storage Only (03/12/2021 12:08 PM EST) Specimen (Source) Anatomical Location Collection Method / Collectio n Time Received Time / Laterality Volume Narrative RAD - 03/12/2021 12:08 PM EST This exam is auto-finalizing. It's purpo se is for storage only. Steven Rodríguez MD IMG FILM LIBRARY ORDERABLES Performing Organization Address City/State/ZIP Code Phon e Number [facility] SHAYNE [place], [place] documented in this encounter Visit Diagnoses Not on filedocumented in this encounter Care Teams Intern Retail Relationship Specialty Start Date End Date None PCP - General 03/12/21 04/25/21 None documented as of this encounter
--- OUTSIDE RECORDS SUMMARY | 2022-01-27 16:05 | XMS_ITS | Encounter Summary ---
:1960 [place] [address] Care Team Providers Name Role Phone None [...] Expiration Date Visits Requ ested Visits Authorized [id number] 1 1 Encounter Details Date Type Department Care Team Description 03/12/2021 Surgery Main Operating Room Marlene Rodríguez TH ROMBECTOMY, VENA CAVA, Phuong Villa MD ILIAC, FEMOROPOPLITEAL [facility] VEIN BY LEG INCISION ([facility] 13.37) [facility] [place] [address] [place] [address] [phone] Social History Tobacco Use Types Packs/Day Years Used Date Smoking Tobacco: Former Smokeless Tobacco: Never Alcohol Use Standard Drinks/Week Comments Not Currently 0 (1 standard drink = 0.6 oz pure alcoho l) about once a month Sex Assigned at Date Recorded Not on file documented as of this encounter Last Filed Vital Signs Vital Sign Reading Time Taken Comments Blood Pressure 118/75 03/12/2021 7:00 AM EST Pulse 81 03/12/2021 6:00 PM EST Temperature 37.9 ??C (100.2 ??F) 03/12/2021 7:00 PM EST Respiratory Rate 13 03/12/2021 6:00 PM EST Oxygen Saturation 98% 03/12/2021 6:00 PM EST Inhaled Oxygen Concentration - - Weight 101.7 kg (224 lb 3.3 oz) 03/12/2021 5:00 PM EST Height - - Body Mass Index 31.47 03/13/2021 4:57 PM [...] Left common iliac vein stent placement (Express [id number], post-dilatedto 12mm); Left common and external iliac vein stent placement (Wallstent [id number]); US guided right internal jugular vein access; [...] DVT on 02/21 and was discharged on . He took it as prescribed howeverstopped it [...] for infrarenal IVC stenosis - predilated with [place] 14 mm balloon. IVC and R CIV stented with Venous WallStent 20 x 80 mm. Extended distally into R EIVA with Wallstent 20 x 80 mm. Postdilated with [place] 16 mm balloon. Completion angiogram with brisk [...] Left common iliac vein stent placement (Express [id number], post-dilated to 12mm), Left common and external iliac vein stent placement (Wallstent [id number]). IVC venogram revealed suprarenal IVC filter in place without clot burden within filter. IVC filter removal. Patient was re- admitted for post-operative monitoring. On 03/16/21, patient was transferred to the floor. On 03/18/20, patient underwent removal af L medial thigh LIZETTE drain and lateral fasciotomy incision closure. In surgery, wound vac with black sponge removed revealing healthy muscle and granulation tissue. [place] and rubber band removed. Lateral fasciotomy incision [...] PM Twan Serna MD Vascular Surgery at [facility] Arrive at: Billing Services Manager Area [phone] 04/26/2021 8:00 AM Avila Bai [place] Vascular Lab at [facility] Arrive at: Billing Services Manager Area [phone] 04/26/2021 10:15 AM Marlene Rodríguez MD Vascular Surgery at [facility] Arrive at: Billing Services Manager Area [phone] 06/07/2021 10:00 AM Natacha Velásquez MD Hematology and Oncology at [facility] Arrive at: Billing Services Manager Area [phone] 06/28/2021 11:00 AM Natacha Velásquez MD Hematology and Oncology at [facility] Arrive at: Billing Services Manager Area [phone] Future Orders Complete By Expires Duplex Study for DVT, Bilat legs [VAS40 Custom] 04/19/2021 10/19/2021 Process Instructions: There is no in-house vascular bundle tier and labeler available on weeknights (5pm-8am), weekends, or holidays. IF THIS IS A REQUEST FOR AN EMERGENT STUDY DURING THOSE HOURS, please have the senior provider responsible for the patient page the Vascular Surgery Fellow/Senior Resident construction equipment mechanic helper to discuss options. Scheduling Instructions: Questions: Indication for study/signs & symptoms: s/p thrombectomy and stenting of IVC, R CIV and R EIV Question to be answered: Patency? New/worsening DVT? Preferred location?: [facility] Clinics Duplex Study IVC/Iliac, Comp [VAS55 Custom] 04/19/2021 10/19/2021 Process Instructions: There is no in-house vascular bundle tier and labeler available on weeknights (5pm-8am), weekends, or holidays. IF THIS IS A REQUEST FOR AN EMERGENT STUDY DURING THOSE HOURS, please have the senior provider responsible for the patient page the Vascular Surgery Fellow/Senior Resident construction equipment mechanic helper to discuss options. Scheduling Instructions: Questions: Indication for study/signs & symptoms: s/p thrombectomy and stenting of IVC, R CIV and R EIV Question to be answered: Patency? New/worsening DVT? Preferred location?: [facility] Referral to Gastroenterology [REF25 Custom] As directed Process Instructions: If requesting a colonoscopy please use [id number] AMB REFERRAL TO COLONOSCOPY PROCEDURE. This referral [...] Due to the OR limitations at the [facility], if you are considering surgery for thispatient, and their BMI is greater than 50, please refer to [facility] (or a division other than [facility]). Scheduling Instructions: Questions: Are you seeking Vascular Access?: No My question or request is: Inguinal Hernias Referral to Home Health - at DISCHARGE [CLA4149 CPT(R)] As directed Process Instructions: Scheduling Instructions: Comments: DOCUMENTATION FOR VNA SERVICES (INCLUDING THOSE PATIENTS WITH MEDICARE COVERAGE REQUIRING HOME VNA SERVICES AND/OR HOSPICE SERVICES) PATIENT'S LOCATION: Amilcar Pate [address] [facility] [address] (home) Cell: Telephone Information: Leach Tank Tender's Name: Jun In discussion with the attending physician, it is certified that this patient is under their care and that they, or a Nurse Practitioner,Clinical Nurse specialist or Physician Silica Spray Mixer who is working directly with them, had [...] for managing ADL's. HOME HEALTH CARE AGENCY: [facility] [employer] PHONE: [phone] FAX: [phone] Start of care: Within 24 to 48 [...] noted Questions: Agency name and contact information: [facility] Patient location post discharge: home What [...] management of your inguinal hernia. Please call [phone] and ask to speak with the general surgery team if you do not hear regarding this appointment in 2 weeks from discharge. Additionally, you had lung findings that require follow-up CT imaging in 6-12 weeks by your primary care provider. A referral was placed to primary care at [facility] given your transition between providers.You should call [phone] if you do not hear regarding this referral. If you establish care with a different primary care provider in the interim, they may follow-up on your CT findings. For any problems or questions please call [phone] For issues on weeknights after 5pm and weekends please call [phone] and ask for the Vascular Fellow construction equipment mechanic helper. TARAN Pineda 03/20/2021 documented in this encounter Discharge Instructions Discharge InstructionsLauren Nielsen RN - 03/15/2021 11:14 AM EST [facility] Vascular and Interventional Radiology Discharge Instructions For [...] is during regular office hours, please call [phone]. If it is after regular office hours, oron weekends or holidays, please call [phone] and ask to speak to the Cigar Head Pegger on callfor Interventional Radiology. You have received [...] management of your inguinal hernia. Please call [phone] and ask to speak with the general surgery team if you do not hear regarding this appointment in 2 weeks from discharge. Additionally, you had lung findings that require follow-up CT imaging in 6-12 weeks by your primary care provider. A referral was placed to primary care at [facility] given your transition between providers.You should call [phone] if you do not hear regarding this referral. If you establish care with a different primary care provider in the interim, they may follow-up on your CT findings. For any problems or questions please call [phone] For issues on weeknights after 5pm and weekends please call [phone] and ask for the Vascular Fellow construction equipment mechanic helper. documented in this encounter Medications at Time [...] VNA called. See Omero Bullard RN Devi Bai, PT - 03/20/2021 10:29 AM EST 03/20/21 1025 Evaluation & Treatment Document Type contact Total Minutes, Physical Therapy 0 Comment, Session Not Performed Met with pt, issued exercise handouts, pt had already ambulated a full lap on the unit. Plan for d/c today with home services. Pt feeling much more confident about discharge. Hector Rosado - 03/20/2021 10:11 AM EST Senior It Project Manager Encounter Note Patient Name: Amilcar Pate : [id number] MR#: [id number] Admit Date: 03/12/2021 4:45 AM Hospital Day [...] on 03/12/2021 with PMH hypothyroidism??and??GERD??who presented??to the [facility] ED in transfer from [facility] with a mottled, cool RLE and was transferred to [facility] on a heparin gtt. The patient previously had a COVID infection on 02/26 and developedbilateral iliofemoral DVT on 02/21 for which he was started on Eliquis. His Eliquis was held for an EGD with biopsy on 03/[address] [facility]. On arrival to [facility], he was noted to have [...] 3.66) performed by Rc Carrasquillo MD at [facility] ??? PRO COLONOSCOPY, DIAGNOSTIC N/A 03/11/2021 COLONOSCOPY, DIAGNOSTIC performed by Titi Stroud MD at [facility] ??? PRO COLONOSCOPY, FLEX, W/DIR SUBMUC INJECT N/A 05/07/2020 COLONOSCOPY WITH DIRECTED SUBMUCOSAL INJ (WRVU 3.66) performed by Rc Carrasquillo MD at [facility] ??? PRO COLONOSCOPY, REMV LESN, SNARE N/A 12/11/2016 COLONOSCOPY, POLYPECTOMY, REMOVAL LESION BY SNARE (WRVU 4.67) performed by Jewels Wilkerson MD at [facility] ??? PRO COLONOSCOPY, REMV LESN, SNARE N/A 05/07/2020 COLONOSCOPY, POLYPECTOMY, REMOVAL LESION BY SNARE (WRVU 4.67) performed by Rc Carrasquillo MD at [facility] ? ? PRO DEBRIDEMENT MUSCLE AND FASCIA 20 SQ CM/< Right 03/14/2021 DEBRIDEMENT SKIN, SUBCU, MUSCLE, LOWER EXTREMITY (WRVU 2.7) performed by Deonte De Los Santos MD at [facility] ? ? PRO DEBRIDEMENT SUBCUTANEOUS TISSUE 20 SQCM/< Right 03/18/2021 DEBRIDEMENT SKIN AND SUBCU, LOWER EXTREMITY (WRVU 1.01) performed by Lukasz Patterson MD at [facility] ??? PRO DECOMPRESS ANT/LAT+POST LEG CMPART Right 03/12/2021 FASCIOTOMY, LOWER LEG, ALL COMPARTMENTS -TIFFANY (WRVU 7.82) [facility] ??? PRO HEMORRHOIDECTOMY, INT/EXT, COMPLX N/A 10/28/2016 HEMORRHOIDECTOMY, INTERNAL & EXTERNAL, COMPLEX (WRVU 6.73) performed by Matt Sullivan MDat [facility] ? ? PRO INSERT VENA CAVA FILTER W/WO VASCULAR ACCESS AND RAD S&I N/A 03/12/2021 INSERT INTRAVASC VENA CAVA FILTER, ENDOVASCR APPR, WHEN PERFORMED (WRVU 4.71) performed by Marlene Rodríguez MD at [facility] ??? PRO REMV VEIN CLOT CAVA-ILIAC, LEG INCIS Right 03/12/2021 THROMBECTOMY, VENA CAVA, ILIAC, FEMOROPOPLITEAL VEIN BY LEG INCISION (WRVU 13.37) performed by Marlene Rodríguez MD at [facility] ??? PRO UPPER GI ENDOSCOPY, BIOPSY N/A 03/11/2021 EGD WITH BIOPSY (WRVU 2.49) performed by Titi Stroud MD at [facility] ??? PRO UPPER GI ENDOSCOPY, DIAGNOSTIC N/A 05/07/2020 EGD, UPPER GI ENDOSCOPY performed by Rc Carrasquillo MD at [facility] Social History: Lives with His Home [...] Therapy: (P) 58 DEVI KOROMA, PT Pager: [phone] Physical Therapy Inpatient Rehabilitation Department Hector Elkins - 03/19/2021 2:49 PM EST Senior It Project Manager Encounter Note Patient Name: Amilcar Pate : [id number] MR#: [id number] Admit Date: 03/12/2021 4:45 AM Hospital Day [...] spiritual support and listening and encouraging presence. Senior It Project Manager services accepted. Conversation to build trusting relationship. Provided pastoral presence. Provided pastoral presence. Provided spiritual support. Follow-up: yes Time in Direct Care:30 Mins Hector Elkins 03/19/2021 Heather Stroud, OT - 03/19/2021 11:22 AM EST Occupational Therapy Evaluation Patient profile: Amilcar Pate is a 60 y.o. male admitted on 03/12/2021 with PMH hypothyroidism and GERD who presented to the [facility] ED in transfer from [facility] with a mottled, cool RLE and was transferred to [facility] on a heparin gtt. The patient previously had a COVID infection on 02/26 and developed bilateral iliofemoral DVT on 02/21 for which he was started on Eliquis. His Eliquis was held for an EGD with biopsy on 03/[address] [facility]. On arrival to [facility], he was noted to have [...] 3.66) performed by Rc Carrasquillo MD at [facility] ??? PRO COLONOSCOPY, DIAGNOSTIC N/A 03/11/2021 COLONOSCOPY, DIAGNOSTIC performed by Titi Stroud MD at [facility] ??? PRO COLONOSCOPY, FLEX, W/DIR SUBMUC INJECT N/A 05/07/2020 COLONOSCOPY WITH DIRECTED SUBMUCOSAL INJ (WRVU 3.66) performed by Rc Carrasquillo MD at [facility] ??? PRO COLONOSCOPY, REMV LESN, SNARE N/A 12/11/2016 COLONOSCOPY, POLYPECTOMY, REMOVAL LESION BY SNARE (WRVU 4.67) performed by Jewels Wilkerson MD at [facility] ??? PRO COLONOSCOPY, REMV LESN, SNARE N/A 05/07/2020 COLONOSCOPY, POLYPECTOMY, REMOVAL LESION BY SNARE (WRVU 4.67) performed by Rc Carrasquillo MD at [facility] ? ? PRO DEBRIDEMENT MUSCLE AND FASCIA 20 SQ CM/< Right 03/14/2021 DEBRIDEMENT SKIN, SUBCU, MUSCLE, LOWER EXTREMITY (WRVU 2.7) performed by Deonte De Los Santos MD at [facility] ? ? PRO DEBRIDEMENT SUBCUTANEOUS TISSUE 20 SQCM/< Right 03/18/2021 DEBRIDEMENT SKIN AND SUBCU, LOWER EXTREMITY (WRVU 1.01) performed by Lukasz Patterson MD at [facility] ??? PRO DECOMPRESS ANT/LAT+POST LEG CMPART Right 03/12/2021 FASCIOTOMY, LOWER LEG, ALL COMPARTMENTS -TIFFANY (WRVU 7.82) [facility] ??? PRO HEMORRHOIDECTOMY, INT/EXT, COMPLX N/A 10/28/2016 HEMORRHOIDECTOMY, INTERNAL & EXTERNAL, COMPLEX (WRVU 6.73) performed by Matt Sullivan MDat [facility] ? ? PRO INSERT VENA CAVA FILTER W/WO VASCULAR ACCESS AND RAD S&I N/A 03/12/2021 INSERT INTRAVASC VENA CAVA FILTER, ENDOVASCR APPR, WHEN PERFORMED (WRVU 4.71) performed by Marlene Rodríguez MD at [facility] ??? PRO REMV VEIN CLOT CAVA-ILIAC, LEG INCIS Right 03/12/2021 THROMBECTOMY, VENA CAVA, ILIAC, FEMOROPOPLITEAL VEIN BY LEG INCISION (WRVU 13.37) performed by Marlene Rodríguez MD at [facility] ??? PRO UPPER GI ENDOSCOPY, BIOPSY N/A 03/11/2021 EGD WITH BIOPSY (WRVU 2.49) performed by Titi Stroud MD at [facility] ??? PRO UPPER GI ENDOSCOPY, DIAGNOSTIC N/A 05/07/2020 EGD, UPPER GI ENDOSCOPY performed by Rc Carrasquillo MD at [facility] Social History: Patient lives with his [...] instrument andmeasurable assessment of functional outcome. Pager: [phone] Heather Stroud OT 03/19/2021 Occupational Therapy Rehabilitation [...] no BMs this shift. Neurovascular checks unchanged. ILZETTE drain with small amount of serous drainage, [...] Hector Rosado - 03/17/2021 1:28 PM EST Senior It Project Manager Encounter Note Patient Name: Amilcar Pate : [id number] MR#: [id number] Admit Date: 03/12/2021 4:45 AM Hospital Day 5 days Narrative:Visited to introduce and assess acceptance of Senior It Project Manager services. Patient was awake, alert, oriented and [...] spiritual support and listening and encouraging presence. Senior It Project Manager services accepted. Conversation to build trusting relationship. [...] 0.63* 0.61* 0.62* Assessment & Plan Amilcar Paet is a 60 y.o. male s/p IVC [...] obstruction Relevant PMH: PMH hypothyroidism and GERD [facility] ED in transfer from [facility] on 03/12 early AM. The patient previously had a COVID infection on 02/26 and developed bilateral iliofemoral DVT on 02/21 for which he was started on Eliquis. His Eliquis was held for an EGD with biopsy on 03/[address] [facility]. This morning, he presented to [facility] with a mottled, cool RLE and was transferred to [facility] on a heparin gtt. On arrival to [facility], he was noted to have [...] with updates Consults: PT [] OT [] RADIO SURVEY WORKER [] Psych [] Action List Q4 VS [...] Therapy Inpatient Rehab Estuardo Urrutia PT Pager [phone] John Baron MD - 03/15/2021 9:09 AM [...] Norma Mcmillan APRN Vascular Surgery Fellow pager [phone] 03/15/2021 ASA: 2 Mal: 3 Cr Lab [...] available/appropriate; social history includes: pt lives in [place], [place] in a 2 and a half story home [address]; bedroom and bathroom on floor w tub shower; baseline independent and worked; lives w pt and volunteers Chani Longo RN - 03/14/2021 4:57 PM EST Illness Severity [x] Stable [] Watcher [] Unstable Patient Summary Reason for admission: IVC obstruction Relevant PMH: PMH hypothyroidism and GERD [facility] ED in transfer from [facility] on 03/12 early AM. The patient previously had a COVID infection on 02/26 and developed bilateral iliofemoral DVT on 02/21 for which he was started on Eliquis. His Eliquis was held for an EGD with biopsy on 03/[address] [facility]. This morning, he presented to [facility] with a mottled, cool RLE and was transferred to [facility] on a heparin gtt. On arrival to [facility], he was noted to have [...] venogram. Remains on heparin gtt, next UFH [id number]. WCM Neuro: WDL ex. Headache Cardiac:WDL NSR [...] with updates Consults: PT [] OT [] RADIO SURVEY WORKER [] Psych [] Action List Q2 virals [...] of : 1960 AGE: 60 y.o. Address: [address] [place] [address] (home) Mobile: Telephone Information: Referring Provider: Rosemary [...] 3.66) performed by Rc Carrasquillo MD at [facility] ??? PRO COLONOSCOPY, DIAGNOSTIC N/A 03/11/2021 COLONOSCOPY, DIAGNOSTIC performed by Titi Stroud MD at [facility] ??? PRO COLONOSCOPY, FLEX, W/DIR SUBMUC INJECT N/A 05/07/2020 COLONOSCOPY WITH DIRECTED SUBMUCOSAL INJ (WRVU 3.66) performed by Rc Carrasquillo MD at [facility] ??? PRO COLONOSCOPY, REMV LESN, SNARE N/A 12/11/2016 COLONOSCOPY, POLYPECTOMY, REMOVAL LESION BY SNARE (WRVU 4.67) performed by Jewels Wilkerson MD at [facility] ??? PRO COLONOSCOPY, REMV LESN, SNARE N/A 05/07/2020 COLONOSCOPY, POLYPECTOMY, REMOVAL LESION BY SNARE (WRVU 4.67) performed by Rc Carrasquillo MD at [facility] ??? PRO DECOMPRESS ANT/LAT+POST LEG CMPART Right 03/12/2021 FASCIOTOMY, LOWER LEG, ALL COMPARTMENTS -TIFFANY (WRVU 7.82) [facility] ??? PRO HEMORRHOIDECTOMY, INT/EXT, COMPLX N/A 10/28/2016 HEMORRHOIDECTOMY, INTERNAL & EXTERNAL, COMPLEX (WRVU 6.73) performed by Matt Sullivan MDat [facility] ? ? PRO INSERT VENA CAVA FILTER W/WO VASCULAR ACCESS AND RAD S&I N/A 03/12/2021 INSERT INTRAVASC VENA CAVA FILTER, ENDOVASCR APPR, WHEN PERFORMED (WRVU 4.71) performed by Marlene Rodríguez MD at [facility] ??? PRO REMV VEIN CLOT CAVA-ILIAC, LEG INCIS Right 03/12/2021 THROMBECTOMY, VENA CAVA, ILIAC, FEMOROPOPLITEAL VEIN BY LEG INCISION (WRVU 13.37) performed by Marlene Rodríguez MD at [facility] ??? PRO UPPER GI ENDOSCOPY, BIOPSY N/A 03/11/2021 EGD WITH BIOPSY (WRVU 2.49) performed by Titi Stroud MD at [facility] ??? PRO UPPER GI ENDOSCOPY, DIAGNOSTIC N/A 05/07/2020 EGD, UPPER GI ENDOSCOPY performed by Rc Carrasquillo MD at [facility] Date/Procedure Meds Given/Comments 03/15/21 LLE venogram [...] hct plt Recent Labs 03/14/21 0035 03/13/21 21003/13/21 0540 WBC 11.7* 9.3 7.8 HGB 8.7* [...] Delilah Sanchez MD Vascular Surgery Fellow pager [phone] 03/14/2021 Active Hospital Problems Diagnosis ??? IVC [...] Intake 5569 ml Output 3540 ml Net 202 ml Temp: [36.7 ??C (98 ??F)-37.9 ??C [...] team Sachi Ford Vascular Surgery Fellow pager [phone] 03/13/2021 Active Hospital Problems Diagnosis ??? IVC [...] and Physical Patient Name: Amilcar Pate MR: [id number] : [id number] CC: 60 y.o. Male HISTORY OF PRESENT ILLNESS: Amilcar Pate is a 60 y.o. male with PMH hypothyroidism and GERD who presented to the [facility] ED in transfer from [facility] on 03/12 early AM. The patient previously had a COVID infection on 02/26 and developed bilateral iliofemoral DVT on 02/21 for which he was started on Eliquis. His Eliquis was held for an EGD with biopsy on 03/[address] [facility]. This morning, he presented to [facility] with a mottled, cool RLE andwas transferred to [facility] on a heparin gtt. On arrival to [facility], he was noted to have [...] 3.66) performed by Rc Carrasquillo MD at [facility] ??? PRO COLONOSCOPY, DIAGNOSTIC N/A 03/11/2021 COLONOSCOPY, DIAGNOSTIC performed by Titi Stroud MD at [facility] ??? PRO COLONOSCOPY, FLEX, W/DIR SUBMUC INJECT N/A 05/07/2020 COLONOSCOPY WITH DIRECTED SUBMUCOSAL INJ (WRVU 3.66) performed by Rc Carrasquillo MD at [facility] ??? PRO COLONOSCOPY, REMV LESN, SNARE N/A 12/11/2016 COLONOSCOPY, POLYPECTOMY, REMOVAL LESION BY SNARE (WRVU 4.67) performed by Jewels Wilkerson MD at [facility] ??? PRO COLONOSCOPY, REMV LESN, SNARE N/A 05/07/2020 COLONOSCOPY, POLYPECTOMY, REMOVAL LESION BY SNARE (WRVU 4.67) performed by Rc Carrasquillo MD at [facility] ??? PRO HEMORRHOIDECTOMY, INT/EXT, COMPLX N/A 10/28/2016 HEMORRHOIDECTOMY, INTERNAL & EXTERNAL, COMPLEX (WRVU 6.73) performed by Matt Sullivan MDat [facility] ??? PRO UPPER GI ENDOSCOPY, BIOPSY N/A 03/11/2021 EGD WITH BIOPSY (WRVU 2.49) performed by Titi Stroud MD at [facility] ??? PRO UPPER GI ENDOSCOPY, DIAGNOSTIC N/A 05/07/2020 EGD, UPPER GI ENDOSCOPY performed by Rc Carrasquillo MD at [facility] ALLERGIES: No Known Allergies MEDICATIONS: Medications [...] hypothyroidism and GERD who presented to the [facility] ED in transfer from [facility] with five hours of acute RLE pain [...] procedures: 35 minutes Oleg Torrez MD PhD #[id number] Madhuri Charles MD - 03/12/2021 9:37 AM EST [facility] Department of Surgery Inpatient Consult Note Consultation [...] 3.66) performed by Rc Carrasquillo MD at [facility] ??? PRO COLONOSCOPY, DIAGNOSTIC N/A 03/11/2021 COLONOSCOPY, DIAGNOSTIC performed by Titi Stroud MD at [facility] ??? PRO COLONOSCOPY, FLEX, W/DIR SUBMUC INJECT N/A 05/07/2020 COLONOSCOPY WITH DIRECTED SUBMUCOSAL INJ (WRVU 3.66) performed by Rc Carrasquillo MD at [facility] ??? PRO COLONOSCOPY, REMV LESN, SNARE N/A 12/11/2016 COLONOSCOPY, POLYPECTOMY, REMOVAL LESION BY SNARE (WRVU 4.67) performed by Jewels Wilkerson MD at [facility] ??? PRO COLONOSCOPY, REMV LESN, SNARE N/A 05/07/2020 COLONOSCOPY, POLYPECTOMY, REMOVAL LESION BY SNARE (WRVU 4.67) performed by Rc Carrasquillo MD at [facility] ??? PRO HEMORRHOIDECTOMY, INT/EXT, COMPLX N/A 10/28/2016 HEMORRHOIDECTOMY, INTERNAL & EXTERNAL, COMPLEX (WRVU 6.73) performed by [facility] ??? PRO UPPER GI ENDOSCOPY, BIOPSY N/A 03/11/2021 EGD WITH BIOPSY (WRVU 2.49) performed by Titi Stroud MD at [facility] [facility] ??? PRO UPPER GI ENDOSCOPY, DIAGNOSTIC N/A 05/07/2020 EGD, UPPER GI ENDOSCOPY performed by Rc Carrasquillo MD at [facility] HOME MEDICATIONS: Current Facility-Administered Medications on [...] any questions regarding this consult, please page [phone] if you have any further questions. [x] [...] Charles MD - 03/12/2021 5:27 AM EST [facility] Department of Surgery Inpatient Consult Note Consultation [...] 3.66) performed by Rc Carrasquillo MD at [facility] ??? PRO COLONOSCOPY, DIAGNOSTIC N/A 03/11/2021 COLONOSCOPY, DIAGNOSTIC performed by Ttii Stroud MD at [facility] ??? PRO COLONOSCOPY, FLEX, W/DIR SUBMUC INJECT N/A 05/07/2020 COLONOSCOPY WITH DIRECTED SUBMUCOSAL INJ (WRVU 3.66) performed by Rc Carrasquillo MD at [facility] ??? PRO COLONOSCOPY, REMV LESN, SNARE N/A 12/11/2016 COLONOSCOPY, POLYPECTOMY, REMOVAL LESION BY SNARE (WRVU 4.67) performed by Jewels Wilkerson MD at [facility] ??? PRO COLONOSCOPY, REMV LESN, SNARE N/A 05/07/2020 COLONOSCOPY, POLYPECTOMY, REMOVAL LESION BY SNARE (WRVU 4.67) performed by Rc Carrasquillo MD at [facility] ??? PRO HEMORRHOIDECTOMY, INT/EXT, COMPLX N/A 10/28/2016 HEMORRHOIDECTOMY, INTERNAL & EXTERNAL, COMPLEX (WRVU 6.73) performed by Matt Sullivan MDat [facility] ??? PRO UPPER GI ENDOSCOPY, BIOPSY N/A 03/11/2021 EGD WITH BIOPSY (WRVU 2.49) performed by Titi Stroud MD at [facility] ??? PRO UPPER GI ENDOSCOPY, DIAGNOSTIC N/A 05/07/2020 EGD, UPPER GI ENDOSCOPY performed by Rc Carrasquillo MD at [facility] HOME MEDICATIONS: Current Facility-Administered Medications on File Prior to Encounter Medication Dose Route Frequency Provider Last Rate Last Admin ??? [DISCONTINUED] lactated ringers infusion 100 mL/hr Intravenous Continuous Titi Stroud MD 100 mL/hr at 03/11/21 1520 100 mL/hr at 03/11/21 1520 ??? [DISCONTINUED] benzocaine (Hurricane One) 20% spray (restricted to mikel- procedural use) Once PRNTiti Stroud MD 1 spray at 03/11/21 163 ??? [DISCONTINUED] fentaNYL (pf) (50 mcg/mL) multi-dose [...] any questions regarding this consult, please page [phone] if you have any further questions. [x] [...] Left common iliac vein stent placement (Express [id number], post-dilated to 12mm) - Left common and external iliac vein stent placement (Wallstent [id number]) - US guided right internal jugular vein [...] Left common iliac vein stent placement (Express [id number], post-dilated to 12mm), Left common and external iliac vein stent placement (Wallstent [id number]); - IVC venogram: suprarenal IVC filter in [...] was inserted and upsized to a 5 Sammarinese sheath over a J-wire. A LLE venogram [...] to the proximal common iliac vein. A Quanah 5x40mm balloon was used to dilate the struts, and when the balloon was deflated the sheath was advanced into the IVC. An Express [id number] balloon expandable stent was deployed in the [...] upsizedthe sheath to a 10Fr sheath. A [id number] wallstent was deployed in the left common [...] was performed with the above findings. The Tranz IVC filter retrieval systemwas opened and the [...] 3.66) performed by Rc Carrasquillo MD at [facility] ??? PRO COLONOSCOPY, DIAGNOSTIC N/A 03/11/2021 COLONOSCOPY, DIAGNOSTIC performed by Titi Stroud MD at [facility] ??? PRO COLONOSCOPY, FLEX, W/DIR SUBMUC INJECT N/A 05/07/2020 COLONOSCOPY WITH DIRECTED SUBMUCOSAL INJ (WRVU 3.66) performed by Rc Carrasquillo MD at [facility] ??? PRO COLONOSCOPY, REMV LESN, SNARE N/A 12/11/2016 COLONOSCOPY, POLYPECTOMY, REMOVAL LESION BY SNARE (WRVU 4.67) performed by Jewels Wilkerson MD at [facility] ??? PRO COLONOSCOPY, REMV LESN, SNARE N/A 05/07/2020 COLONOSCOPY, POLYPECTOMY, REMOVAL LESION BY SNARE (WRVU 4.67) performed by Rc Carrasquillo MD at [facility] ? ? PRO DEBRIDEMENT MUSCLE AND FASCIA 20 SQ CM/< Right 03/14/2021 DEBRIDEMENT SKIN, SUBCU, MUSCLE, LOWER EXTREMITY (WRVU 2.7) performed by Deonte De Los Santos MD at [facility] ? ? PRO DEBRIDEMENT SUBCUTANEOUS TISSUE 20 SQCM/< Right 03/18/2021 DEBRIDEMENT SKIN AND SUBCU, LOWER EXTREMITY (WRVU 1.01) performed by Lukasz Patterson MD at [facility] ??? PRO DECOMPRESS ANT/LAT+POST LEG CMPART Right 03/12/2021 FASCIOTOMY, LOWER LEG, ALL COMPARTMENTS -TIFFANY (WRVU 7.82) [facility] ??? PRO HEMORRHOIDECTOMY, INT/EXT, COMPLX N/A 10/28/2016 HEMORRHOIDECTOMY, INTERNAL & EXTERNAL, COMPLEX (WRVU 6.73) performed by Matt Sullivan MDat [facility] ? ? PRO INSERT VENA CAVA FILTER W/WO VASCULAR ACCESS AND RAD S&I N/A 03/12/2021 INSERT INTRAVASC VENA CAVA FILTER, ENDOVASCR APPR, WHEN PERFORMED (WRVU 4.71) performed by Marlene Rodríguez MD at [facility] ??? PRO REMV VEIN CLOT CAVA-ILIAC, LEG INCIS Right 03/12/2021 THROMBECTOMY, VENA CAVA, ILIAC, FEMOROPOPLITEAL VEIN BY LEG INCISION (WRVU 13.37) performed by Marlene Rodríguez MD at [facility] ??? PRO UPPER GI ENDOSCOPY, BIOPSY N/A 03/11/2021 EGD WITH BIOPSY (WRVU 2.49) performed by Titi Stroud MD at [facility] ??? PRO UPPER GI ENDOSCOPY, DIAGNOSTIC N/A 05/07/2020 EGD, UPPER GI ENDOSCOPY performed by Rc Carrasquillo MD at [facility] No Known Allergies Social History Socioeconomic [...] who have questions please contact the health lpn care manager that requested your imaging first. Venogram Vascular [...] who have questions please contact the health lpn care manager that requested your imaging first. Venogram Abdomen [...] who have questions please contact the health lpn care manager that requested your imaging first. OR VASC [...] who have questions please contact the health lpn care manager that requested your imaging first. Venogram Abdomen [...] who have questions please contact the health lpn care manager that requested your imaging first. Request For [...] of outside imaging study. * Sending Institution [facility] * Date of exam 20210221 * I believe a reinterpretation of this exam may alter care of Patient. Yes TECHNIQUE: CT of the abdomen and pelvis with intravenous contrast was performed at [facility] on February 21, 2021. Helical CT images of the abdomen and pelvis were obtained with intravenous contrast. Per report, the patient received 100 mL Omnipaque 350 intravenous contrast. Multiplanar reformats were performed in the sagittal and coronal planes. Oral contrast was not administered. COMPARISON: There is no similar prior examination provided for comparison. FINDINGS: Coremaker Floor Images: Noncontributory. Lower chest: Visualized structures within [...] who have questions please contact the health lpn care manager that requested your imaging first. --------ORIGINAL REPORT -------- EXAMINATION: * REQUEST FOR 2ND READ CT ABDOMEN AND PELVIS * CT OF THE ABDOMEN AND PELVIS WITH INTRAVENOUS CONTRAST. CLINICAL HISTORY: 60-year-old male with initially presenting with low back pain right lower extremity is cold and mottled. Request for second interpretation of outside imaging study. * Sending Institution [facility] * Date of exam 20210221 * I believe a reinterpretation of this exam may alter care of Patient. Yes TECHNIQUE: CT of the abdomen and pelvis with intravenous contrast was performed at [facility] on February 21, 2021. Helical CT images of the abdomen and pelvis were obtained with intravenous contrast. Per report, the patient received 100 mL Omnipaque 350 intravenous contrast. Multiplanar reformats were performed in the sagittal and coronal planes. Oral contrast was not administered. COMPARISON: There is no similar prior examination provided for comparison. FINDINGS: Coremaker Floor Images: Noncontributory. Lower chest: Visualized structures within [...] who have questions please contact the health lpn care manager that requested your imaging first. Final 1. [...] who have questions please contact the health lpn care manager that requested your imaging first. Film Library- [...] management, aware Dr Annie Wiley requested this administrative underwriter to hold pain medications for ongoing right [...] who have questions please contact the health lpn care manager that requested your imaging first. Angiogram Chest [...] who have questions please contact the health lpn care manager that requested your imaging first. Venogram Abdomen [...] who have questions please contact the health lpn care manager that requested your imaging first. Jia Han [...] & Follow-up Care: Contact information for follow-up [facility] [address] [place] [address] Transportation: family or friend will provide - will come to get him Functional status prior to admission: Independent Home Environment: Others in the home: spouse. . Accessibility Concerns: Karlie Paet ([phone]). Current Functional Ability: Assistive Person and Equipment DME used at home: none DME Needed at Discharge: N/A - wound vac no longer needed Patient is insured through: Primary Insurance: MVP Payor: MVP / Plan: MVP [place] / Product Type: *No Product type* / Secondary Insurance: N/A Prescription Coverage: Yes Preferred Pharmacy: [facility] [address] [place] [address] [place] - [address] [place] [address] [address] [place] [address] RO[address] [facility] [id number] This plan was formulated with input from patient and team. All are in agreement with plan. Italia FELTON RN Phone: [phone] Pager: [phone] Plan of Care - Charlene Concepcion RN - 03/20/2021 1:38 AM EST OUTCOME EVALUATION NOTE: OUTCOME SUMMARY: 2239-C/O 6/10 headache and right leg incisional pain, given Oxycodone 5 mg po and Tylenol with relief. Had large BM and voiding adequate amount. 2299-Seen by construction equipment mechanic helper c/o swelling on the left leg with [...] Amador MD - 03/18/2021 12:[address] [facility] Operative Note Patient Name: Amilcar Pate : [id number] MR#: [id number] Case Date: 03/18/2021 Surgeon: Surgeon(s) and Role: [...] home: spouse. . Accessibility Concerns: Karlie Pate [phone]). Current Functional Ability: Assistive Person and Equipment DME used at home: none DME Needed at Discharge: Other DME Needs: Wound Vac Provider: VINCE Patient is insured through: Primary Insurance: MVP Payor: MVP / Plan: [place] / Product Type: *No Product type* / Secondary Insurance: N/A Prescription Coverage: Yes Preferred Pharmacy: [facility] [address] [place] [address] [address] [place] [address] [address] [facility] [address] Plan for discharge is: Home w/ Services Home Health Services: Registered Nurse, Physical Therapy Agency Referrals & Follow-up Care: [facility] PHONE: [phone] FAX: [phone] Transportation: family or friend will provide Barriers [...] of Discharge: 03/22/2021 Italia FELTON RN Phone: [phone] Pager: [phone] Plan of Care - Rosita Patel RN [...] home: spouse. . Accessibility Concerns: Karlie Pate ([phone]). Current Functional Ability: Assistive Person and Equipment DME used at home: none DME Needed at Discharge: Other DME Needs: Wound Vac Provider: VINCE Patient is insured through: Primary Insurance: MVP Payor: MVP / Plan: [place] / Product Type: *No Product type* / Secondary Insurance: N/A Prescription Coverage: Yes Preferred Pharmacy: [facility] [address] [facility], [place] - [address] [place] [address] RO[address] [place] [address] Last Physical Therapy Recommendation: with Last Occupational [...] are placed. Provided patient with [facility] Star Quality Rating for Home care hand out. Patient requests referral to [facility] PHONE: [phone] FAX: [phone]. Expected date of discharge: 03/18/2021. Referral routed to the Public Relations Analyst for matching with agency/vendor and to provide [...] dressing change while under sedation ?? Norma Mcmilaln APRN Care Management will continue to follow and assist with discharge planning and coordination of care as indicated. Anticipated Date of Discharge: 03/18/2021 Italia FELTON RN Phone: [phone] Pager: [phone] Plan of Care - Lilibeth Wilks RN [...] bowel meds given. PLAN MOVING FORWARD: Monitor [facility] Pain management Q2 neurovascular checks INDIVIDUALIZED FALL [...] Amador MD - 03/14/2021 12:[address] [facility] Operative Note Patient Name: Amilcar Pate : [id number] MR#: [id number] Case Date: 03/14/2021 Surgeon: Surgeon(s) and Role: [...] Operative Note Patient Name: Amilcar Pate : [id number] MR#: [id number] Case Date: 03/14/2021 Surgeon: Surgeon(s) and Role: [...] used? N/A Consult Note - Areli Glover [facility] - 03/13/2021 10:06 AM EST [...] be reconciled bythe provider. [facility] Reconciliation Pharmacist at [phone] for any questions. Areli Glover RPH Op Note - Sachi Ford MD - 03/12/2021 4:[address] [facility] Operative Note Patient Name: Amilcar Pate : [id number] MR#: [id number] Case Date: 03/12/2021 Pre-procedure Dx: Right leg [...] endotracheal anesthesia Fluids: 1400 mL crystalloid Heparin: 93166 units Protamine: None Fluoro Time: 43.1 min Contrast: 197 mL EBL: 500 mL UOP: 800 mL Indications for the Procedure: Amilcar Paet is a 60 year old man recently diagnosed with [id number] was recently diagnosed with a DVT and [...] for infrarenal IVC stenosis - predilated with [place] 14 mm balloon IVC and R CIV stented with Venous WallStent 20 x 80 mm Extended distally into R EIVA with Wallstent 20 x 80 mm Postdilated with [place] 16 mm balloon Completion angiogram with brisk [...] IVC, right CIV and right EIV per gas distribution and emergency clerk'sspecifications. There was return of acute appearing, unorganized pale clot. Repeat venogram showed recanalization of the IVC and right iliac veins but was also notable for an IVC stenosis. This was predilated with a 14 mm [place] balloon. A Venous WallStent 20 x 80 mm was positioned across the area of stenosis in the infrarenal IVC and deployed. This was extended distally with a second WallStent into the right external iliac vein. The stents were postdilated with a 16 mm [place] balloon. Completion venog jeannie was completed with [...] ICU Sachi Ford Vascular Surgery Fellow pager [phone] 03/12/2021 Associated attestation - Marlene Rodríguez MD [...] No, need to discuss ( Karlie Pate ([phone])) If AD's have not been completed Karlie Pate ([phone]) would be surrogate decision maker per [place] surrogate decision making law. (Only good for 180 days) Any patient receiving care at [facility] must abide by [place] law. The hierarchy for surrogate decision making [...] (i) The agent with financial power of collections attorney or a conservator appointed in accordance with RSA 464-A. (j) The guardian of the patient???s estate. Current Coping/Education/Information Needs: Advanced Directive Current Functional Ability: Independent Functional Status Prior to Admission: Independent Home Environment: Others in the home: spouse. . Accessibility Concerns: Karlie Pate ([phone]). Current DME: none Home Address listed as: [address] [place] [address] Social & Family Supports: All names listed below confirmed with patient as current and correct Extended Emergency Contact Information Primary Emergency Contact: Karlie Pate Address: [address] [place] [id number] [place] [address] Mobile Relation: Spouse Secondary Emergency Contact: Steven Greenwood [facility] Mobile Relation: Other Current Care [...] Primary Insurance: P Payor: P / Plan: [facility] [place] / Product Type: *No Product type* / Secondary Insurance: N/A Prescription Coverage: Yes Preferred Pharmacy: [facility] - [place], [place] - [address] [place] [address] [place] Status: Patient is a : unable to [...] care planning. Neelima SOTO ED Triage - Deng, Varun Lehman RN - 03/12/2021 5:02 AM EST Hospital Transfer from [facility] brought by EMS, history of clots in legs, had colonoscopy andendoscopy in [facility] yesterday, Eliquis was stopped for [...] Stated Reason for Visit: Hospital Transfer from [facility] brought by EMS, case of right leg ischemia, had colonoscopy and endoscopy yesterday in [facility] and so his Eliquis were [...] Component Value Ref Test Analysis Performed At [facility] Method Time Signature VB Text Department: Vascular Surgery Lab VASCUBASE Report Patient: [id number] (AMILCAR PATE) CPT: 89599 Referring Physician: MARLENE RODRÍGUEZ ?? Indications: Patient [...] lab databas e for comparison. Notification: Dr. Rodríugez was informed of these preliminary f indings. [...] (ABNORMAL) Differential, Automated (03/19/2021 5:28 AM EST) [facility] gist Method Time Signature Neutrophils % 66.1 % [facility] Neutr Abs (ANC) 5.44 1.70 - [facility] 6.10 [facility] x10(3)/[facility] LABORATORY Lymphocytes % 18.0 % [facility] Lymphocytes Abs 1.5 0.9 - 3.2 [facility] x10(3)/[facility] LABORATORY Monocytes % 12.0 % [facility] Monocyte Abs 1.0 (H) 0.3 - 0.9 [facility] x10(3)/[facility] LABORATORY Eosinophils % 2.3 % [facility] Eosinophils Abs 0.2 0.0 - 0.4 [facility] x10(3)/[facility] LABORATORY Basophils % 0.5 % [facility] Basophils Abs 0.0 0.0 - 0.1 [facility] x10(3)/[facility] LABORATORY Immature Gran % 1.10 % [facility] Comment: Immature granulocytes(IG's)percentage an d absolute count will include metamyelocytes, myelocytes, and promyelo cytes. Blood smears from CBCs yielding IG's will be scanned manually for concor dance. If this scan disagrees with the automated IG or if promyelocytes are not ed, a manual differential will be performed. Lata Gran Abs 0.09 (H) 0.00 - 0.04 x10(3)/[facility] LABORATORY Specimen Anatomical Collection Method Collection Time Receive d Time (Source) Location / / Volume Laterality Blood 03/19/2021 5:28 AM 5:43 EST AM EST Resulting Agency Comment Spec In Lab Cristina Amador MD HEMATOLOGY ORDERABLES Performing Organization Address City/State/[place] [address] (ABNORMAL) Hemogram (03/19/2021 5:28 AM EST) Analysis Performed At Patho logist Time Signature WBC 8.2 4.0 - 9.5 [facility] x10(3)/[facility] LABORATORY RBC 3.07 (L) 4.58 - [facility] 5.54 [facility] x10(6)/[facility] LABORATORY Hemoglobin 8.9 (L) 13.7 - [facility] 16[facility] g/dL [facility] Hematocrit 27.9 (L) 40.5 - [facility] 48.5 % [facility] MCV 90.9 82.9 - [facility] 93.1 [facility] LABORATORY MCH 29.0 27.5 - [facility] 32.1 pg [facility] LAB[facility]ORY MCHC 31.9 (L) 32.0 - [facility] 35.7 g/dL [facility] LAB[facility]ORY Platelets 403 (H) 145 - 357 [facility] x10(3)/[facility] LABORATORY RDWSD 43.8 36.0 - [facility] 45.0 [facility] LABORATORY RDWCV 13.3 11.4 - [facility] 13.8 % [facility] LABORATORY MPV 9.3 7.6 - 12.9 [facility] LABORATORY nRBC % Auto 0.0 % [facility] nRBC Abs Auto 0.000 0.000 - [place] 0.000 [facility] x10(3)/[facility] LABORATORY Specimen Anatomical Collection Method Collection Time Receive d Time (Source) Location / / Volume Laterality Blood 03/19/2021 5:28 AM 2 5:43 EST AM EST Resulting Agency Comment Spec In Lab Cristina Amador MD HEMATOLOGY ORDERABLES Performing Organization Address City/[facility]/ZIP Code Phon e Number [address] Phosphorus (03/19/2021 5:28 AM EST) P athologist Signature Phosphorus 4.0 2.5 - 4.5 [facility] mg/dL [facility] LABORATORY Specimen Anatomical Collection Method Collection Time Receive d Time (Source) Location / / Volume Laterality Blood 03/19/2021 5:28 AM 2 5:43 EST AM EST Resulting Agency Comment Spec In Lab Marlene Rodríguez MD CHEMISTRY ORDERABLES Performing Organization Address City/[facility]/ZIP Code Phon e Number [address] Magnesium (03/19/2021 5:28 AM EST) P athologist Signature Magnesium 0.91 0.69 - 1.07 [facility] mmol/L [facility] LABORATORY Specimen Anatomical Collection Method Collection Time Receive d Time (Source) Location / / Volume Laterality Blood 03/19/2021 5:28 AM 2 5:43 EST AM EST Resulting Agency Comment Spec In Lab Marlene Rodríguez MD CHEMISTRY ORDERABLES Performing Organization Address City/[facility]/ZIP Code Phon e Number [address] (ABNORMAL) Basic Metabolic Panel (non-fasting) (03/19/2021 5:28 AM EST) P athologist Signature Glucose Lvl 117 65 - 199 [facility] mg/dL [facility] LABORATORY Comment: Diabetes: >=200 mg/dL plus symp toms BUN 12 10 - 20 mg/dL [facility] Creatinine 0.63 (L) 0.80 - 1.50 mg/dL [facility] Sodium 139 135 - 145 mmol/L [facility] LAB[facility]ORY Potassium 3.7 3.5 - 5.0 mmol/L [facility] Comment: Please note: ??Patients with WBC >100,00 0 may have falsely elevated Potassium levels. ??For accurate Potassium quantif ication in these patients send serum separator tube (gold top) for subsequent determinations. ??Contact the Clinical Chemistry Laboratory if there are any qu estions. Chloride 103 98 - 107 mmol/L [facility] CO2 23 22 - 31 mmol/L [facility] Anion Gap 13 5 - 15 mmol/L [facility] Calcium 8.9 8.5 - 10.5 mg/dL [facility] LABOR[facility]ORY Estimated GFR 106 >=60 [...] Organization Address City/State/[place] [address] (ABNORMAL) Differential, Automated (03/18/2021 5:43 AM EST) Patholo gist Method Time Signature Neutrophils % 66.5 % [facility] Neutr Abs (ANC) 6.74 (H) 1.70 - [facility] 6.10 [facility] x10(3)/[facility] LABORATORY Lymphocytes % 19.8 % [facility] Lymphocytes Abs 2.0 0.9 - 3.2 [facility] x10(3)/[facility] [facility] LABORATORY Monocytes % 10.4 % [facility] LABORATORY Monocyte Abs 1.0 (H) 0.3 - 0.9 [facility] x10(3)/[facility] LABORATORY Eosinophils % 2.3 % [facility] LABORATORY Eosinophils Abs 0.2 0.0 - 0.4 [facility] x10(3)/[facility] LABORATORY Basophils % 0.4 % [facility] LABORATORY Basophils Abs 0.0 0.0 - 0.1 [facility] x10(3)/[facility] LABORATORY Immature Gran % 0.60 % [facility] LABORATORY Comment: Immature granulocytes(IG's)percentage an d absolute count will include metamyelocytes, myelocytes, and promyelo cytes. Blood smears from CBCs yielding IG's will be scanned manually for concor dance. If this scan disagrees with the automated IG or if promyelocytes are not ed, a manual differential will be performed. Lata Gran Abs 0.06 (H) 0.00 - 0.04 x10(3)/[facility] LABORATORY Specimen Anatomical Collection Method Collection Time Receive d Time (Source) Location / / Volume Laterality Blood 03/18/2021 5:43 AM 6:14 EST AM EST Resulting Agency Comment Spec In Lab Cristina Amador MD HEMATOLOGY ORDERABLES Performing Organization Address City/State/ZIP [place] [address] (ABNORMAL) Hemogram (03/18/2021 5:43 AM EST) Analysis Performed At [facility] logist Time Signature WBC 10.1 (H) 4.0 - 9.5 [facility] x10(3)/[facility] LABORATORY RBC 3.22 (L) 4.58 - [facility] 5.54 [facility] x10(6)/[facility] LABORATORY Hemoglobin 9.3 (L) 13.7 - [facility] 16.[facility] g/dL [facility] LABORATORY Hematocrit 28.4 (L) 40.5 - [facility] 48.[facility] % [facility] LABORATORY MCV 88.2 82.9 - [facility] 93.1 [facility] LABORATORY MCH 28.9 27.5 - [facility] 32.1 pg [facility] LABORATORY MCHC 32.7 32.0 - [facility] 35.7 g/dL [facility] LABORATORY Platelets 390 (H) 145 - 357 [facility] x10(3)/[facility] LABORATORY RDWSD 41.8 36.0 - [facility] 45.0 [facility] LABORATORY RDWCV 13.1 11.4 - [facility] 13.8 % [facility] LABORATORY MPV 9.9 7.6 - 12.9 [facility] LABORATORY nRBC % Auto 0.0 % [facility] LABORATORY nRBC Abs Auto 0.000 0.000 - [facility] 0.000 [facility] x10(3)/[facility] LABORATORY Specimen Anatomical Collection Method Collection Time Receive d Time (Source) Location / / Volume Laterality Blood 03/18/2021 5:43 AM 2 6:14 EST AM EST Resulting Agency Comment Spec In Lab Cristina Amador MD HEMATOLOGY ORDERABLES Performing Organization Address City/State/[place] [address] Phosphorus (03/18/2021 5:43 AM EST) P athologist Signature Phosphorus 4.0 2.5 - 4.5 [facility] mg/dL [facility] LABORATORY Specimen Anatomical Collection Method Collection Time Receive d Time (Source) Location / / Volume Laterality Blood 03/18/2021 5:43 AM 2 6:14 EST AM EST Resulting Agency Comment Spec In Lab Marlene Rodríguez MD CHEMISTRY ORDERABLES Performing Organization Address City/State/ZIP Code Phon e Number [address] Magnesium (03/18/2021 5:43 AM EST) P athologist Signature Magnesium 0.87 0.69 - 1.07 [facility] mmol/L [facility] LABORATORY Specimen Anatomical Collection Method Collection Time Receive d Time (Source) Location / / Volume Laterality Blood 03/18/2021 5:43 AM 6:14 EST AM EST Resulting Agency Comment Spec In Lab Marlene Rodríguez MD CHEMISTRY ORDERABLES Performing Organization Address City/[facility]/ZIP Code Phon e Number [address] (ABNORMAL) Basic Metabolic Panel (non-fasting) (03/18/2021 5:43 AM EST) athologist Signature Glucose Lvl 122 65 - 199 [facility] mg/dL [facility] LABORATORY Comment: Diabetes: >=200 mg/dL plus symp toms BUN 11 10 - 20 mg/dL [facility] LABORATORY Creatinine 0.60 (L) 0.80 - 1.50 mg/dL [facility] LABORATORY Sodium 136 135 - 145 mmol/L [facility] LABORATORY Potassium 3.7 3.5 - 5.0 mmol/L [facility] LABORATORY Comment: Please note: ??Patients with WBC >100,00 0 may have falsely elevated Potassium levels. ??For accurate Potassium quantif ication in these patients send serum separator tube (gold top) for subsequent determinations. ??Contact the Clinical Chemistry Laboratory if there are any qu estions. Chloride 103 98 - 107 mmol/L [facility] LABORATORY CO2 21 (L) 22 - 31 mmol/L [facility] LABORATORY Anion Gap 12 5 - 15 mmol/L [facility] LABORATORY Calcium 9.2 8.5 - 10.5 mg/dL [facility] LABORATORY Estimated GFR 109 >=60 mL/min/1.73 m?? [facility] LAB[facility]ORY Comment: This patient? s [...] MD CHEMISTRY ORDERABLES Performing Organization Address City/State/ZIP [facility] [place] [address] Heparin (unfractionated) Level (03/18/2021 5:43 AM EST) athologist Signature Heparin UFH 0.43 IU/mL [facility] LABORATORY Comment: Heparin (anti-Xa) levels should [...] Organization Address City/State/ZIP Code Phon e Number [place] [id number] HOSPITAL LABORATORY Drive (ABNORMAL) Differential, Automated (03/17/2021 5:39 AM EST) [facility] Method Time Signature Neutrophils % 69.1 % [facility] LABORATORY Neutr Abs (ANC) 6.64 (H) 1.70 - [facility] 6.10 [facility] x10(3)/[facility] LABORATORY Lymphocytes % 17.9 % [facility] LABORATORY Lymphocytes Abs 1.7 0.9 - 3.2 [facility] x10(3)/[facility] LABORATORY Monocytes % 10.2 % [facility] LABORATORY Monocyte Abs 1.0 (H) 0.3 - 0.9 [facility] x10(3)/[facility] LABORATORY Eosinophils % 2.2 % [facility] LABORATORY Eosinophils Abs 0.2 0.0 - 0.4 [facility] x10(3)/[facility] LABORATORY Basophils % 0.3 % [facility] LABORATORY Basophils Abs 0.0 0.0 - 0.1 [facility] x10(3)/[facility] LABORATORY Immature Gran % 0.30 % [facility] [...] 0.03 0.00 - 0.04 x10(3)/[facility] LABORATORY Specimen Anatomical Collection Method Collection Time Receive d Time (Source) Location / / Volume Laterality Blood 03/17/2021 5:39 AM 5:59 EST AM EST Resulting Agency Comment Spec In Lab Cristina Amador MD HEMATOLOGY ORDERABLES Performing Organization Address City/[facility]/[place] [address] (ABNORMAL) Hemogram (03/17/2021 5:39 AM EST) Analysis Performed At Patho logist Time Signature WBC 9.6 (H) 4.0 - 9.5 [facility] x10(3)/[facility] LABORATORY RBC 3.00 (L) 4.58 - [facility] 5.54 [facility] x10(6)/[facility] LABORATORY Hemoglobin 8.8 (L) 13.7 - [facility] 16.[facility] g/dL [facility] LABORATORY Hematocrit 26.6 (L) 40.5 - [facility] 48.5 % [facility] LABORATORY MCV 88.7 82.9 - [facility] 93.1 [facility] LABORATORY MCH 29.3 27.5 - [facility] 32.1 pg [facility] LABORATORY MCHC 33.1 32.0 - [facility] 35.7 g/dL [facility] LABORATORY Platelets 333 145 - 357 [facility] x10(3)/[facility] LABORATORY RDWSD 42.0 36.0 - [facility] 45.0 [facility] LABORATORY RDWCV 13.1 11.4 - [facility] 13.8 % [facility] LABORATORY MPV 9.5 7.6 - 12.9 [facility] LABORATORY nRBC % Auto 0.0 % [facility] LABORATORY nRBC Abs Auto 0.000 0.000 - [facility] 0.000 [facility] x10(3)/[facility] LABORATORY Specimen Anatomical Collection Method Collection Time Receive d Time (Source) Location / / Volume Laterality Blood 03/17/2021 5:39 AM 2 5:59 EST AM EST Resulting Agency Comment Spec In Lab Cristina Amador MD HEMATOLOGY ORDERABLES Performing Organization Address City/State/[place] [address] Phosphorus (03/17/2021 5:39 AM EST) P athologist Signature Phosphorus 4.2 2.5 - 4.5 [facility] mg/dL [facility] LABORATORY Specimen Anatomical Collection Method Collection Time Receive d Time (Source) Location / / Volume Laterality Blood 03/17/2021 5:39 AM 2 5:59 EST AM EST Resulting Agency Comment Spec In Lab Marlene Rodríguez MD CHEMISTRY ORDERABLES Performing Organization Address City/[facility]/ZIP Code Phon e Number [address] Magnesium (03/17/2021 5:39 AM EST) P athologist Signature Magnesium 0.90 0.69 - 1.07 [facility] mmol/L [facility] LABORATORY Specimen Anatomical Collection Method Collection Time Receive d Time (Source) Location / / Volume Laterality Blood 03/17/2021 5:39 AM 2 5:59 EST AM EST Resulting Agency Comment Spec In Lab Marlene Rodríguez MD CHEMISTRY ORDERABLES Performing Organization Address [facility] Phon e Number [address] Heparin (unfractionated) Level (03/17/2021 5:39 AM EST) athologist Signature Heparin UFH 0.39 IU/mL [facility] LABORATORY Comment: Heparin (anti-Xa) levels should [...] Rodríguez MD HEMATOLOGY ORDERABLES Performing Organization Address City/[facility]/ZIP [place] [address] (ABNORMAL) Basic Metabolic Panel (non-fasting) (03/17/2021 5:39 AM EST) P athologist Signature Glucose Lvl 130 65 - 199 [facility] mg/dL [facility] LABORATORY Comment: Diabetes: >=200 mg/dL plus symp toms BUN 10 10 - 20 mg/dL [facility] LABORATORY Creatinine 0.63 (L) 0.80 - 1.50 mg/dL [facility] LABORATORY Sodium 136 135 - 145 mmol/L [facility] LABORATORY Potassium 3.8 3.5 - 5.0 mmol/L [facility] LABORATORY Comment: Please note: ??Patients with WBC >100,00 0 may have falsely elevated Potassium levels. ??For accurate Potassium quantif ication in these patients send serum separator tube (gold top) for subsequent determinations. ??Contact the Clinical Chemistry Laboratory if there are any qu estions. Chloride 104 98 - 107 mmol/L [facility] LABORATORY CO2 24 22 - 31 mmol/L [facility] LABORATORY Anion Gap 8 5 - 15 mmol/L [facility] LABORATORY Calcium 9.1 8.5 - 10.5 mg/dL [facility] LABORATORY Estimated GFR 106 >=60 [...] Organization Address City/State/[place] [address] Urinalysis with reflex Culture (03/16/2021 10:39 PM EST) [facility] gist Method Time Signature Glucose UA Negative Negative [facility] LABORATORY Protein UA Negative Negative [facility] mg/dL [facility] LABORATORY Bilirubin UA Negative Negative [facility]/dL [facility] LABORATORY Comment: Clinical correlation required for positi ve Urine Bilirubin results as false positive may occur with some drugs and d rug related products. If a false positive is suspected a serum total bili shahid should be considered if clinically indicated. Urobilinogen UA Normal Normal mg/dL [facility] LABORATORY pH UA 7.5 5.0 - 8.0 [facility] LABORATORY Blood UA Negative Negative mg/dL [facility] LABORATORY Ketones UA Negative Negative mg/dL [facility] LABORATORY Nitrite UA Negative Negative [facility] LABORATORY Leukocytes UA Negative Negative [facility] LABORATORY Appearance UA Clear Clear [facility] LABORATORY Spec [place] UA 1.007 1.005 - 1.030 [facility] LABORATORY Color UA Yellow Yellow [facility] LABORATORY Culture Reflexed No [facility] LABORATORY Specimen Anatomical Collection Method Collection Time Receive d Time (Source) Location / / Volume Laterality Clean Catch 03/16/2021 10:39 03/16/2021 Urine PM EST 11:04 PM EST Resulting Agency Comment Spec In Lab Marlene Rodríguez MD URINE ORDERABLES Performing Organization Address City/State/[place] [address] XR Chest One View [...] who have questions please contact the health lpn care manager that requested your imaging first. ? Narrative [...] ho have questions please contact the health lpn care manager that requested your imaging first. Marlene Rodríguez MD IMG DX ORDERABLES Blood culture (03/16/2021 9:06 PM EST) [facility] Method Time Signature Blood Culture No growth [facility] at 5 days. [facility] LABORATORY Specimen Anatomical Collection Method Collection Time Receive d Time (Source) Location / / Volume Laterality Blood STRUCTURE OF RIGHT 03/16/2021 9:06 PM 9:53 HAND / Unknown EST PM EST Resulting Agency Comment Spec In Lab Marlene Rodríguez MD MICROBIOLOGY - BLOOD ORDERAB LES Performing Organization Address City/State/ZIP [place] [address] Blood culture (03/16/2021 9:06 PM EST) [facility] Method Time Signature Blood Culture No growth [facility] at 5 days. [facility] LABORATORY Specimen Anatomical Collection Method Collection Time Receive d Time (Source) Location / / Volume Laterality Blood STRUCTURE OF LEFT 03/16/2021 9:06 PM 03/02 9:52 HAND / Unknown EST PM EST Resulting Agency Comment Spec In Lab Marlene Rodríguez MD MICROBIOLOGY - BLOOD ORDERAB LES Performing Organization Address City/[facility]/[place] [address] Heparin (unfractionated) Level (03/16/2021 3:09 AM EST) P athologist Signature Heparin UFH 0.50 IU/mL [facility] LABORATORY Comment: Heparin (anti-Xa) levels should [...] Organization Address City/State/[place] [address] (ABNORMAL) Differential, Automated (03/16/2021 3:09 AM EST) [facility] Method Time Signature Neutrophils % 75.9 % [facility] LABORATORY Neutr Abs (ANC) 7.08 (H) 1.70 - [facility] 6.10 [facility] x10(3)/[facility] LABORATORY Lymphocytes % 13.6 % [facility] LABORATORY Lymphocytes Abs 1.3 0.9 - 3.2 [facility] x10(3)/[facility] LABORATORY Monocytes % 7.7 % [facility] LABORATORY Monocyte Abs 0.7 0.3 - 0.9 [facility] x10(3)/[facility] LABORATORY Eosinophils % 1.9 % [facility] LABORATORY Eosinophils Abs 0.2 0.0 - 0.4 [facility] x10(3)/[facility] LABORATORY Basophils % 0.2 % [facility] LABORATORY Basophils Abs 0.0 0.0 - 0.1 [facility] x10(3)/[facility] LABORATORY Immature Gran % 0.70 % [facility] LABORATORY Comment: Immature granulocytes(IG's)percentage an d absolute count will include metamyelocytes, myelocytes, and promyelo cytes. Blood smears from CBCs yielding IG's will be scanned manually for concor dance. If this scan disagrees with the automated IG or if promyelocytes are not ed, a manual differential will be performed. Lata Gran Abs 0.07 (H) 0.00 - 0.04 x10(3)/[facility] LABORATORY Specimen Anatomical Collection Method Collection Time Receive d Time (Source) Location / / Volume Laterality Blood 03/16/2021 3:09 AM 2 3:13 EST AM EST Resulting Agency Comment Spec In Lab Cristina Amador MD HEMATOLOGY ORDERABLES Performing Organization Address City/State/[place] [address] (ABNORMAL) Hemogram (03/16/2021 3:09 AM EST) Analysis Performed At Patho logist Time Signature WBC 9.3 4.0 - 9.5 [facility](3[facility] LABORATORY RBC 2.92 (L) 4.58 - [facility] 5.54 [facility] x10(6)/[facility] LABORATORY Hemoglobin 8.6 (L) 13.7 - [facility] 16.5 g/dL [facility] LABORATORY Hematocrit 26.0 (L) 40.5 - [facility] 48.5 % [facility] LABORATORY MCV 89.0 82.9 - [facility] CHANG 93.1 [facility] LABORATORY MCH 29.5 27.5 - [facility] 32.1 pg [facility] LABORATORY MCHC 33.1 32.0 - [facility] 35.7 g/dL [facility] LABORATORY Platelets 292 145 - 357 [facility] x10(3)/[facility] LABORATORY RDWSD 41.7 36.0 - [facility] 45.0 [facility] LABORATORY RDWCV 12.8 11.4 - [facility] CHANG 13.8 % [facility] LABORATORY MPV 9.4 7.6 - 12.9 [facility] LABORATORY nRBC % Auto 0.0 % [facility] LABORATORY nRBC Abs Auto 0.000 0.000 - [facility] 0.000 [facility] x10(3)/[facility] LABORATORY Specimen Anatomical Collection Method Collection Time Receive d Time (Source) Location / / Volume Laterality Blood 03/16/2021 3:09 AM 3:13 EST AM EST Resulting Agency Comment Spec In Lab Cristina Amador MD HEMATOLOGY ORDERABLES Performing Organization Address City/State/[place] [address] Phosphorus (03/16/2021 3:09 AM EST) P athologist Signature Phosphorus 3.4 2.5 - 4.5 [facility] CHANG mg/dL [facility] LABORATORY Specimen Anatomical Collection Method Collection Time Receive d Time (Source) Location / / Volume Laterality Blood 03/16/2021 3:09 AM 2 3:13 EST AM EST Resulting Agency Comment Spec In Lab Marelne Rodríguez MD CHEMISTRY ORDERABLES Performing Organization Address City/[facility]/ZIP Code Phon e Number [address] Magnesium (03/16/2021 3:09 AM EST) athologist Signature Magnesium 0.86 0.69 - 1.07 [facility] mmol/L [facility] LABORATORY Specimen Anatomical Collection Method Collection Time Receive d Time (Source) Location / / Volume Laterality Blood 03/16/2021 3:09 AM 2 3:13 EST AM EST Resulting Agency Comment Spec In Lab Marlene Rodríguez MD CHEMISTRY ORDERABLES Performing Organization Address City/[facility] [place] [address] (ABNORMAL) Basic Metabolic Panel (non-fasting) (03/16/2021 3:09 AM EST) athologist Signature Glucose Lvl 118 65 - 199 [facility] mg/dL [facility] LABORATORY Comment: Diabetes: >=200 mg/dL plus symp toms BUN 13 10 - 20 mg/dL [facility] LABORATORY Creatinine 0.61 (L) 0.80 - 1.50 mg/dL [facility] LABORATORY Sodium 137 135 - 145 mmol/L [facility] LABORATORY Potassium 4.2 3.5 - 5.0 mmol/L [facility] LABORATORY Comment: Please note: ??Patients with WBC >100,00 0 may have falsely elevated Potassium levels. ??For accurate Potassium quantif ication in these patients send serum separator tube (gold top) for subsequent determinations. ??Contact the Clinical Chemistry Laboratory if there are any qu estions. Chloride 103 98 - 107 mmol/L [facility] LABORATORY CO2 25 22 - 31 mmol/L [facility] LABORATORY Anion Gap 9 5 - 15 mmol/L [facility] LABORATORY Calcium 8.6 8.5 - 10.5 mg/dL [facility] LABORATORY Estimated GFR 108 >=60 mL/min/1.73 m?? [facility] [...] Organization Address City/State/[place] [address] Heparin (unfractionated) Level (03/15/2021 8:58 PM EST) P athologist Signature Heparin UFH 0.62 IU/mL [facility] LABORATORY Comment: Heparin (anti-Xa) levels should [...] Organization Address City/State/ZIP Code Phon e Number [place] [id number] HOSPITAL LABORATORY Drive VS Venogram Vascular Surgery [...] Left common iliac vein stent placement (Express [id number], post-dilated to 12mm) - Left common and external iliac vein st ent placement (Wallstent [id number]) - US guided right internal jugular vein [...] co mmon iliac vein stent placement (Express [id number], post-dilated to 12mm), Left com mon and external iliac vein stent placement (Wallstent [id number]); - IVC venogram: suprarenal IVC filter in [...] the proximal commo n iliac vein. A Quanah 5x40mm balloon was used to dilate the [...] sheath to a 1 0Fr sheath. A [id number] wallstent was deployed in the left common [...] was performed with the above findings. The Tranz IVC filter retrieval system was opened a [...] who have questions please contact the health lpn care manager that requested your imaging first. ? Electronically signed by: Marlene Rodríguez MD, [facility] ([phone]), at 03/19/2021 1:46 PM Procedure Note Marlene [...] Left common iliac vein stent placement (Express [id number], post-dilated to 12mm) - Left common and external iliac vein st ent placement (Wallstent [id number]) - US guided right internal jugular vein [...] co mmon iliac vein stent placement (Express [id number], post-dilated to 12mm), Left com mon and external iliac vein stent placement (Wallstent [id number]); - IVC venogram: suprarenal IVC filter in [...] the proximal commo n iliac vein. A Quanah 5x40mm balloon was used to dilate the [...] sheath to a 1 0Fr sheath. A [id number] wallstent was deployed in the left common [...] performed with the above findings. The Cook Cuponzote IVC filter retrieval system was opened a [...] ho have questions please contact the health lpn care manager that requested your imaging first. Marlene Rodríguez MD IMG IR ORDERABLES Heparin (unfractionated) Level (03/15/2021 1:20 AM EST) athologist Signature Heparin UFH 0.47 IU/mL [facility] LABORATORY Comment: Heparin (anti-Xa) levels should [...] Organization Address City/State/[place] [address] (ABNORMAL) Differential, Automated (03/15/2021 12:41 AM EST) [facility] gist Method Time Signature Neutrophils % 75.9 % [facility] LABORATORY Neutr Abs (ANC) 7.15 (H) 1.70 - [facility] 6.10 [facility] x10(3)/[facility] LABORATORY Lymphocytes % 14.3 % [facility] LABORATORY Lymphocytes Abs 1.4 0.9 - 3.2 [facility] x10(3)/[facility] LABORATORY Monocytes % 7.8 % [facility] LABORATORY Monocyte Abs 0.7 0.3 - 0.9 [facility] x10(3)/[facility] LABORATORY Eosinophils % 1.4 % [facility] LABORATORY Eosinophils Abs 0.1 0.0 - 0.4 [facility] x10(3)/[facility] LABORATORY Basophils % 0.3 % [facility] LABORATORY Basophils Abs 0.0 0.0 - 0.1 [facility] x10(3)/[facility] LABORATORY Immature Gran % 0.30 % [facility] [...] Lata Gran Abs 0.03 0.00 - 0.04 x10(3)/[facility] LABORATORY Specimen Anatomical Collection Method Collection Time Receive d Time (Source) Location / / Volume Laterality Blood 03/15/2021 12:41 03/15/2021 AM EST 12:51 AM EST Resulting Agency Comment Spec In Lab Cristina Amador MD HEMATOLOGY ORDERABLES Performing Organization Address City/State/[place] [address] (ABNORMAL) Hemogram (03/15/2021 12:41 AM EST) Analysis Performed At [facility] logist Time Signature WBC 9.4 4.0 - 9.5 [facility] x10(3)/[facility] LABORATORY RBC 3.11 (L) 4.58 - [facility] 5.54 [facility] x10(6)/[facility] LABORATORY Hemoglobin 8.9 (L) 13.7 - [place] 16.5 g/dL [facility] LABORATORY Hematocrit 27.8 (L) 40.5 - [place] 48.5 % [facility] LABORATORY MCV 89.4 82.9 - [place] 93.1 [facility] LABORATORY MCH 28.6 27.5 - [place] 32.1 pg [facility] LABORATORY MCHC 32.0 32.0 - [place] 35.7 g/dL [facility] LABORATORY Platelets 359 (H) 145 - 357 [facility] x10(3)/[facility] LABORATORY RDWSD 42.1 36.0 - [place] 45.0 [facility] LABORATORY RDWCV 12.9 11.4 - [place] 13.8 % [facility] LABORATORY MPV 9.6 7.6 - 12.9 [facility] LABORATORY nRBC % Auto 0.0 % [facility] LABORATORY nRBC Abs Auto 0.000 0.000 - [place] 0.000 [facility] x10(3)/[facility] LABORATORY Specimen Anatomical Collection Method Collection Time Receive d Time (Source) Location / / Volume Laterality Blood 03/15/2021 12:41 03/15/2021 AM EST 12:51 AM EST Resulting Agency Comment Spec In Lab Cristina Amador MD HEMATOLOGY ORDERABLES Performing Organization Address City/State/ZIP Code Phon e Number [address] Phosphorus (03/15/2021 12:41 AM EST) P athologist Signature Phosphorus 3.1 2.5 - 4.5 [facility] CHANG mg/dL [facility] LABORATORY Specimen Anatomical Collection Method Collection Time Receive d Time (Source) Location / / Volume Laterality Blood 03/15/2021 12:41 03/15/2021 AM EST 12:51 AM EST Resulting Agency Comment Spec In Lab Marlene Rodríguez MD CHEMISTRY ORDERABLES Performing Organization Address City/State/ZIP Code Phon e Number [address] Magnesium (03/15/2021 12:41 AM EST) athologist Signature Magnesium 0.91 0.69 - 1.07 [facility] mmol/L [facility] LABORATORY Specimen Anatomical Collection Method Collection Time Receive d Time (Source) Location / / Volume Laterality Blood 03/15/2021 12:41 03/15/2021 AM EST 12:51 AM EST Resulting Agency Comment Spec In Lab Marlene Rodríguez MD CHEMISTRY ORDERABLES Performing Organization Address City/State/[place] [address] (ABNORMAL) Basic Metabolic Panel (non-fasting) (03/15/2021 12:41 AM EST) athologist Signature Glucose Lvl 152 65 - 199 [facility] mg/dL [facility] LABORATORY Comment: Diabetes: >=200 mg/dL plus symp toms BUN 10 10 - 20 mg/dL [facility] LABORATORY Creatinine 0.62 (L) 0.80 - 1.50 mg/dL [facility] LABORATORY Sodium 135 135 - 145 mmol/L [facility] LABORATORY Potassium 3.8 3.5 - 5.0 mmol/L [facility] LABORATORY Comment: Please note: ??Patients with WBC >100,00 0 may have falsely elevated Potassium levels. ??For accurate Potassium quantif ication in these patients send serum separator tube (gold top) for subsequent determinations. ??Contact the Clinical Chemistry Laboratory if there are any qu estions. Chloride 101 98 - 107 mmol/L [facility] LABORATORY CO2 25 22 - 31 mmol/L [facility] LABORATORY Anion Gap 9 5 - 15 mmol/L [facility] LABORATORY Calcium 8.3 (L) 8.5 - 10.5 mg/dL [facility] LABORATORY Comment: result rechecked-gh Estimated GFR 107 >=60 mL/min/1.73 m?? [facility] [...] Organization Address City/State/ZIP Code Phon e Number [place] [id number] [facility] LABORATORY Drive XR Chest One View (03/15/2021 [...] who have questions please contact the health lpn care manager that requested your imaging first. ? Narrative [...] ho have questions please contact the health lpn care manager that requested your imaging first. Marlene Rodríguez [...] 444 ms MUSE SYSTEM (Bezet) Calculated P [place] 30 degrees MUSE SYSTEM Calculated R [place] -5 degrees MUSE SYSTEM Calculated T [place] 30 degrees MUSE SYSTEM INTERPRETATION Normal sinus rhythm MUSE SYSTEM Nonspecific T wave abnormality Abnormal ECG When compared with ECG of 12-MAR-2021 05:17, No significant change was found I personally reviewed the tracing and edited the fellows int erpretation Confirmed by fellow Pato Corcoran ([id number]) on 03/15/2021 1: 59:35 PM Confirmed by [...] P athologist Signature Green Hold Sample in [facility] LABORATORY Specimen Anatomical Collection Method Collection Time Receive d Time (Source) Location / / Volume Laterality Blood No Charge / 03/14/2021 5:47 PM 5:47 Unknown EST PM EST Marlene Rodríguez MD CHEMISTRY ORDERABLES Performing Organization Address City/State/[place] [address] Heparin (unfractionated) Level (03/14/2021 5:30 PM EST) P athologist Signature Heparin UFH 0.48 IU/mL [facility] LABORATORY Comment: Heparin (anti-Xa) levels should [...] Rodríguez MD HEMATOLOGY ORDERABLES Performing Organization Address City/[facility]/ZIP [place] [address] (ABNORMAL) CK (03/14/2021 1:05 PM EST) athologist Signature CK, Total 5,550 (H) 0 - 200 [facility] unit/L [facility] LABORATORY Specimen Anatomical Collection Method Collection Time Receive d Time (Source) Location / / Volume Laterality Blood 03/14/2021 1:05 PM 2 1:33 EST PM EST Resulting Agency Comment Spec In Lab Marlene Rodríguez MD CHEMISTRY ORDERABLES Performing Organization Address City/[facility]/ZIP [place] [address] Venogram Abdomen & [...] who have questions please contact the health lpn care manager that requested your imaging first. ? Narrative [...] ho have questions please contact the health lpn care manager that requested your imaging first. Marlene Rodríguez MD IMG CT ORDERABLES Heparin (unfractionated) Level (03/14/2021 10:40 AM EST) athologist Signature Heparin UFH 0.40 IU/mL [facility] LABORATORY Comment: Heparin (anti-Xa) levels should [...] Organization Address City/State/[place] [address] Heparin (unfractionated) Level (03/14/2021 4:25 AM EST) athologist Signature Heparin UFH 0.77 IU/mL [facility] LABORATORY Comment: Heparin (anti-Xa) levels should [...] Rodríguez MD HEMATOLOGY ORDERABLES Performing Organization Address City/[facility]/ZIP [place] [address] (ABNORMAL) CK (03/14/2021 4:25 AM EST) P athologist Signature CK, Total 7,495 (H) 0 - 200 [facility] LABORATORY Comment: result rechecked-KS Specimen Anatomical Collection Method Collection Time Receive d Time (Source) Location / / Volume Laterality Blood 03/14/2021 4:25 AM 2 4:30 EST AM EST Resulting Agency Comment Spec In Lab Marlene oRdríguez MD CHEMISTRY ORDERABLES Performing Organization Address City/[facility]/ZIP [place] [address] Blue Tube HOLD (03/14/2021 3:35 AM EST) P athologist Signature Blue Hold Sample in [facility] LABORATORY Specimen Anatomical Collection Method Collection Time Receive d Time (Source) Location / / Volume Laterality Blood No Charge / 03/14/2021 3:35 AM 2 4:03 Unknown EST AM EST Sachi Ford MD HEMATOLOGY ORDERABLES Performing Organization Address City/[facility]/ZIP [place] [address] (ABNORMAL) CK (03/14/2021 2:50 AM EST) P athologist Signature CK, Total 7,620 (H) 0 - 200 [facility] LABORATORY Specimen Anatomical Collection Method Collection Time Receive d Time (Source) Location / / Volume Laterality Blood 03/14/2021 2:50 AM 2 2:56 EST AM EST Resulting Agency Comment Spec In Lab Marlene Rodríguez MD CHEMISTRY ORDERABLES Performing Organization Address City/[facility]/[place] [address] [facility] LABORATORY Drive (ABNORMAL) CK (03/14/2021 12:35 AM EST) P athologist Signature CK, Total 8,075 (H) 0 - 200 [facility] LABORATORY Specimen Anatomical Collection Method Collection Time Receive d Time (Source) Location / / Volume Laterality Blood Venous Draw / 03/14/2021 12:35 03/14/2021 Unknown AM EST 12:44 AM EST Resulting Agency Comment Spec In Lab Ruben Medrano Jr., MD CHEMISTRY ORDERABLES Performing Organization Address City/State/ZIP Code Phon e Number [address] (ABNORMAL) Differential, Automated (03/14/2021 12:35 AM EST) Patholo gist Method Time Signature Neutrophils % 79.2 % [facility] LABORATORY Neutr Abs (ANC) 9.29 (H) 1.70 - [facility] 6.10 [facility] x10(3)/[facility] LABORATORY Lymphocytes % 10.1 % [facility] LABORATORY Lymphocytes Abs 1.2 0.9 - 3.2 [facility] x10(3)/[facility] LABORATORY Monocytes % 9.3 % [facility] LABORATORY Monocyte Abs 1.1 (H) 0.3 - 0.9 [facility] x10(3)/[facility] LABORATORY Eosinophils % 0.8 % [facility] LABORATORY Eosinophils Abs 0.1 0.0 - 0.4 [facility] x10(3)/[facility] LABORATORY Basophils % 0.3 % [facility] LABORATORY Basophils Abs 0.0 0.0 - 0.1 [facility] x10(3)/[facility] LABORATORY Immature Gran % 0.30 % [facility] [...] Lata Gran Abs 0.04 0.00 - 0.04 x10(3)/[facility] LABORATORY Specimen Anatomical Collection Method Collection Time Receive d Time (Source) Location / / Volume Laterality Blood 03/14/2021 12:35 03/14/2021 AM EST 12:41 AM EST Resulting Agency Comment Spec In Lab Sachi Ford MD HEMATOLOGY ORDERABLES Performing Organization Address City/State/[place] [address] (ABNORMAL) Hemogram (03/14/2021 12:35 AM EST) Analysis Performed At Patho logist Time Signature WBC 11.7 (H) 4.0 - 9.5 [facility] x10(3)/[facility] LABORATORY RBC 3.03 (L) 4.58 - [facility] 5.54 [facility] x10(6)/[facility] LABORATORY Hemoglobin 8.7 (L) 13.7 - [facility] 16.5 g/dL [facility] LABORATORY Hematocrit 26.8 (L) 40.5 - [facility] 48.5 % [facility] LABORATORY MCV 88.4 82.9 - [facility] 93.1 [facility] LABORATORY MCH 28.7 27.5 - [facility] 32.1 pg [facility] LABORATORY MCHC 32.5 32.0 - [facility] 35.7 g/dL [facility] LABORATORY Platelets 311 145 - 357 [facility] x10(3)/[facility] LABORATORY RDWSD 40.9 36.0 - [facility] 45.0 [facility] LABORATORY RDWCV 12.6 11.4 - [facility] 13.8 % [facility] LABORATORY MPV 9.3 7.6 - 12.9 [facility] LABORATORY nRBC % Auto 0.0 % [facility] LABORATORY nRBC Abs Auto 0.000 0.000 - [facility] 0.000 [facility] x10(3)/[facility] LABORATORY Specimen Anatomical Collection Method Collection Time Receive d Time (Source) Location / / Volume Laterality Blood 03/14/2021 12:35 03/14/2021 AM EST 12:41 AM EST Resulting Agency Comment Spec In Lab Sachi Ford MD HEMATOLOGY ORDERABLES Performing Organization Address City/[facility]/ZIP Code Phon e Number [address] (ABNORMAL) Phosphorus (03/14/2021 12:35 AM EST) P athologist Signature Phosphorus 2.0 (L) 2.5 - 4.5 [facility] mg/dL [facility] LABORATORY Specimen Anatomical Collection Method Collection Time Receive d Time (Source) Location / / Volume Laterality Blood 03/14/2021 12:35 03/14/2021 AM EST 12:41 AM EST Resulting Agency Comment Spec In Lab Marlene Rodríguez MD CHEMISTRY ORDERABLES Performing Organization Address City/[facility]/ZIP Code Phon e Number [address] Magnesium (03/14/2021 12:35 AM EST) P athologist Signature Magnesium 0.87 0.69 - 1.07 [facility] mmol/L [facility] LABORATORY Specimen Anatomical Collection Method Collection Time Receive d Time (Source) Location / / Volume Laterality Blood 03/14/2021 12:35 03/14/2021 AM EST 12:41 AM EST Resulting Agency Comment Spec In Lab Marlene Rodríguez MD CHEMISTRY ORDERABLES Performing Organization Address City/[facility]/ZIP [facility] [place] [address] (ABNORMAL) Basic Metabolic Panel (non-fasting) (03/14/2021 12:35 AM EST) P athologist Signature Glucose Lvl 141 65 - 199 [facility] mg/dL [facility] LABORATORY Comment: Diabetes: >=200 mg/dL plus symp toms BUN 12 10 - 20 mg/dL [facility] LABORATORY Creatinine 0.60 (L) 0.80 - 1.50 mg/dL [facility] LABORATORY Sodium 135 135 - 145 mmol/L [facility] LABORATORY Potassium 3.7 3.5 - 5.0 mmol/L [facility] LABORATORY Comment: Please note: ??Patients with WBC >100,00 0 may have falsely elevated Potassium levels. ??For accurate Potassium quantif ication in these patients send serum separator tube (gold top) for subsequent determinations. ??Contact the Clinical Chemistry Laboratory if there are any qu estions. Chloride 103 98 - 107 mmol/L [facility] LABORATORY CO2 23 22 - 31 mmol/L [facility] LABORATORY Anion Gap 9 5 - 15 mmol/L [facility] LABORATORY Calcium 7.7 (L) 8.5 - 10.5 mg/dL [facility] LABORATORY Estimated GFR 109 >=60 mL/min/1.73 m?? [facility] [...] Organization Address City/State/[place] [address] (ABNORMAL) Differential, Automated (03/13/2021 9:01 PM EST) [facility] Method Time Signature Neutrophils % 71.7 % [facility] LABORATORY Neutr Abs (ANC) 6.70 (H) 1.70 - [facility] 6.10 [facility] x10(3)/[facility] LABORATORY Lymphocytes % 13.5 % [facility] LABORATORY Lymphocytes Abs 1.3 0.9 - 3.2 [facility] x10(3)/[facility] LABORATORY Monocytes % 12.3 % [facility] LABORATORY Monocyte Abs 1.2 (H) 0.3 - 0.9 [facility] x10(3)/[facility] LABORATORY Eosinophils % 1.3 % [facility] LABORATORY Eosinophils Abs 0.1 0.0 - 0.4 [facility] x10(3)/[facility] LABORATORY Basophils % 0.2 % [facility] LABORATORY Basophils Abs 0.0 0.0 - 0.1 [facility] x10(3)/[facility] LABORATORY Immature Gran % 1.00 % [facility] LABORATORY Comment: Immature granulocytes(IG's)percentage an d absolute count will include metamyelocytes, myelocytes, and promyelo cytes. Blood smears from CBCs yielding IG's will be scanned manually for concor dance. If this scan disagrees with the automated IG or if promyelocytes are not ed, a manual differential will be performed. Lata Gran Abs 0.09 (H) 0.00 - 0.04 x10(3)/[facility] LABORATORY Specimen Anatomical Collection Method Collection Time Receive d Time (Source) Location / / Volume Laterality Blood 03/13/2021 9:01 PM 9:06 EST PM EST Resulting Agency Comment Spec In Lab Ruben Medrano Jr., MD HEMATOLOGY ORDERABLES Performing Organization Address City/State/[place] [address] (ABNORMAL) Hemogram (03/13/2021 9:01 PM EST) Analysis Performed At Patho logist Time Signature WBC 9.3 4.0 - 9.5 [facility] x10(3)/[facility] LABORATORY RBC 3.10 (L) 4.58 - [facility] 5.54 [facility] x10(6)/[facility] LABORATORY Hemoglobin 9.0 (L) 13.7 - [facility] 16.5 g/dL [facility] LABORATORY Hematocrit 27.8 (L) 40.5 - [facility] 48.5 % [facility] LABORATORY MCV 89.7 82.9 - [place] 93.1 [facility] LABORATORY MCH 29.0 27.5 - [place] 32.1 pg [facility] LABORATORY MCHC 32.4 32.0 - [place] 35.7 g/dL [facility] LABORATORY Platelets 314 145 - 357 [facility] x10(3)/[facility] LABORATORY RDWSD 41.8 36.0 - [facility] CHANG 45.0 [facility] LABORATORY RDWCV 12.7 11.4 - [facility] CHANG 13.8 % [facility] LABORATORY MPV 9.0 7.6 - 12.9 [facility] LABORATORY nRBC % Auto 0.0 % [facility] nRBC Abs Auto 0.000 0.000 - [facility] 0.000 [facility] x10(3)/[facility] LABORATORY Specimen Anatomical Collection Method Collection Time Receive d Time (Source) Location / / Volume Laterality Blood 03/13/2021 9:01 PM 9:06 EST PM EST Resulting Agency Comment Spec In Lab Ruben Medrano Jr., MD HEMATOLOGY ORDERABLES Performing Organization Address City/State/[place] [address] Heparin (unfractionated) Level (03/13/2021 9:01 PM EST) P athologist Signature Heparin UFH <0.04 IU/mL [facility] LABORATORY Comment: Heparin (anti-Xa) levels should [...] Rodríguez MD HEMATOLOGY ORDERABLES Performing Organization Address City/[facility]/ZIP Code Phon e Number [address] (ABNORMAL) CK (03/13/2021 5:41 PM EST) athologist Signature CK, Total 10,050 (H) 0 - 200 [facility] unit/L [facility] LABORATORY Specimen Anatomical Collection Method Collection Time Receive d Time (Source) Location / / Volume Laterality Blood 03/13/2021 5:41 PM 2 6:00 EST PM EST Resulting Agency Comment Spec In Lab Marlene Rodríguez MD CHEMISTRY ORDERABLES Performing Organization Address City/[facility] [place] [address] (ABNORMAL) Basic Metabolic Panel (non-fasting) (03/13/2021 5:41 PM EST) athologist Signature Glucose Lvl 122 65 - 199 [facility] mg/dL [facility] LABORATORY Comment: Diabetes: >=200 mg/dL plus symp toms BUN 11 10 - 20 mg/dL [facility] LABORATORY Creatinine 0.68 (L) 0.80 - 1.50 mg/dL [facility] LABORATORY Sodium 138 135 - 145 mmol/L [facility] LABORATORY Potassium 3.9 3.5 - 5.0 mmol/L [facility] LABORATORY Comment: Please note: ??Patients with WBC >100,00 0 may have falsely elevated Potassium levels. ??For accurate Potassium quantif ication in these patients send serum separator tube (gold top) for subsequent determinations. ??Contact the Clinical Chemistry Laboratory if there are any qu estions. Chloride 104 98 - 107 mmol/L [facility] LABORATORY CO2 24 22 - 31 mmol/L [facility] LABORATORY Anion Gap 10 5 - 15 mmol/L [facility] LABORATORY Calcium 8.0 (L) 8.5 - 10.5 mg/dL [facility] LABORATORY Estimated GFR 103 >=60 mL/min/1.73 m?? [facility] [...] Organization Address City/State/[place] [address] ECHOCARDIOGRAM COMPLETE W CONTRAST (03/13/2021 1:32 PM EST) P athologist Signature EF 65 [facility] Anatomical Region Laterality Modality Other Specimen (Source) Anatomical Location Collection Method / Collectio n Time Received Time / Laterality Volume 03/13/2021 Narrative 03/13/2021 2:16 PM EST Procedure: ?Transthoracic Echocardiogram Patient: ?RIO Torrez ?(Age): 1960(60y) Med Rec#: ? [id number] ?Sex: ?M ? Site Loc: ? [facility] ?Ht / Wt: ??174(cm)/96(kg) Pt. Loc: ?ICU ? BSA: ?2.1 Study Date: ?? 03/13/2021 ?Pt. Type: Inpatient Tape: ? [facility] Referring: LUIS PURCELLICHARDJ Reading: Yoshi Bolivar ([id number]) Mobile Manager: Humera Gomez Diagnosis: *Acute embolism and thrombosis [...] Vmax ?0.68 ? m/sec ? MV deceleration [id number] ? m sec ? MV A-wave Vmax [...] ? 03/13/2021 14:15:42 Images reviewed and interpretation [facility] Cardiac Ultrasound Laboratory Procedure Note Yoshi Bolivar MD - 03/13/2021Formatti ng of this note might be different from the original. Procedure: Transthoracic Echocardiogram Patient: RIO Torrez (Age): (60y) Med Rec#: [id number] Sex: M Site Loc: [facility] Ht / Wt: 174(cm)/96(kg) Pt. Loc: ICU BSA: 2.1 Study Date: 03/13/2021 Pt. Type: Inpatie nt Tape: Referring: OLIVA Referring: LUIS PURCELLICHARDJ Reading: Yoshi Bolivar ([id number]) Mobile Manager: Humera Gomez Diagnosis: *Acute embolism and thrombosis [...] MV E-wave Vmax 0.68 m/sec MV deceleration [id number] msec MV A-wave Vmax 0.85 m/sec MV [...] :42 Images reviewed and interpretation verif ied [facility] Cardiac Ultrasound Laboratory Marlene Rodríguez MD ECHO ORDERABLES (ABNORMAL) CK (03/13/2021 11:40 AM EST) P athologist Signature CK, Total 10,859 (H) 0 - 200 [facility] unit/L [facility] LABORATORY Specimen Anatomical Collection Method Collection Time Receive d Time (Source) Location / / Volume Laterality Blood 03/13/2021 11:40 03/13/2021 AM EST 12:42 PM EST Resulting Agency Comment Spec In Lab Marlene Rodríguez MD CHEMISTRY ORDERABLES Performing Organization Address City/State/[place] [address] (ABNORMAL) Differential, Automated (03/13/2021 5:40 AM EST) Patholo gist Method Time Signature Neutrophils % 71.4 % [facility] LABORATORY Neutr Abs (ANC) 5.54 1.70 - [facility] 6.10 [facility] x10(3)/[facility] LABORATORY Lymphocytes % 11.3 % [facility] LABORATORY Lymphocytes Abs 0.9 0.9 - 3.2 [facility] x10(3)/[facility] LABORATORY Monocytes % 15.3 % [facility] LABORATORY Monocyte Abs 1.2 (H) 0.3 - 0.9 [facility] x10(3)/[facility] LABORATORY Eosinophils % 1.2 % [facility] LABORATORY Eosinophils Abs 0.1 0.0 - 0.4 [facility] x10(3)/[facility] LABORATORY Basophils % 0.3 % [facility] LABORATORY Basophils Abs 0.0 0.0 - 0.1 [facility] x10(3)/[facility] LABORATORY Immature Gran % 0.50 % [facility] LABORATORY Comment: Immature granulocytes(IG's)percentage an d absolute count will include metamyelocytes, myelocytes, and promyelo cytes. Blood smears from CBCs yielding IG's will be scanned manually for concor dance. If this scan disagrees with the automated IG or if promyelocytes are not ed, a manual differential will be performed. Lata Gran Abs 0.04 0.00 - 0.04 x10(3)/[facility] LABORATORY Specimen Anatomical Collection Method Collection Time Receive d Time (Source) Location / / Volume Laterality Blood 03/13/2021 5:40 AM 5:56 EST AM EST Resulting Agency Comment Spec In Lab Kamron Charles MD HEMATOLOGY ORDERABLES Performing Organization Address City/State/[place] [address] (ABNORMAL) Hemogram (03/13/2021 5:40 AM EST) Analysis Performed At Patho logist Time Signature WBC 7.8 4.0 - 9.5 [facility] x10(3)/[facility] LABORATORY RBC 3.09 (L) 4.58 - [facility] 5.54 [facility] x10(6)/[facility] LABORATORY Hemoglobin 8.8 (L) 13.7 - [facility] 16.5 g/dL [facility] LABORATORY Hematocrit 27.6 (L) 40.5 - [facility] 48[facility] % [facility] LABORATORY MCV 89.3 82.9 - [facility] 93.1 fL [facility] LABORATORY MCH 28.5 27.5 - [facility] 32.1 pg [facility] LABORATORY MCHC 31.9 (L) 32.0 - [place] 35.7 g/dL [facility] LABORATORY Platelets 294 145 - 357 [facility] x10(3)/[facility] LABORATORY RDWSD 42.4 36.0 - [facility] CHANG 45.0 [facility] LABORATORY RDWCV 13.0 11.4 - [facility] 13.8 % [facility] LABORATORY MPV 8.8 7.6 - 12.9 [facility] LABORATORY nRBC % Auto 0.0 % [facility] LABORATORY nRBC Abs Auto 0.000 0.000 - [facility] CHANG 0.000 [facility] x10(3)/[facility] LABORATORY Specimen Anatomical Collection Method Collection Time Receive d Time (Source) Location / / Volume Laterality Blood 03/13/2021 5:40 AM 2 5:56 EST AM EST Resulting Agency Comment Spec In Lab Kamron Charles MD HEMATOLOGY ORDERABLES Performing Organization Address City/State/[place] [address] Heparin (unfractionated) Level (03/13/2021 5:40 AM EST) P athologist Signature Heparin UFH 0.27 IU/mL [facility] LABORATORY Comment: Heparin (anti-Xa) levels should [...] Organization Address City/State/ZIP [place] [address] (ABNORMAL) CK (03/13/2021 5:40 AM EST) athologist Signature CK, Total 9,271 (H) 0 - 200 [facility] unit/L [facility] LABORATORY Specimen Anatomical Collection Method Collection Time Receive d Time (Source) Location / / Volume Laterality Blood 03/13/2021 5:40 AM 2 5:56 EST AM EST Resulting Agency Comment Spec In Lab Martine Gerardo DO CHEMISTRY ORDERABLES Performing Organization Address City/[facility]/ZIP Code Phon e Number [address] Phosphorus (03/13/2021 5:40 AM EST) athologist Signature Phosphorus 2.5 2.5 - 4.5 [facility] LABORATORY Specimen Anatomical Collection Method Collection Time Receive d Time (Source) Location / / Volume Laterality Blood 03/13/2021 5:40 AM 2 5:56 EST AM EST Resulting Agency Comment Spec In Lab Martine Terri Gerardo DO CHEMISTRY ORDERABLES Performing Organization Address City/State/ZIP [place] [address] (ABNORMAL) Basic Metabolic Panel (non-fasting) (03/13/2021 5:40 AM EST) athologist Signature Glucose Lvl 126 65 - 199 [facility] mg/dL [facility] LABORATORY Comment: Diabetes: >=200 mg/dL plus symp toms BUN 10 10 - 20 mg/dL [facility] LABORATORY Creatinine 0.61 (L) 0.80 - 1.50 mg/dL [facility] LABORATORY Sodium 136 135 - 145 mmol/L [facility] LABORATORY Potassium 3.8 3.5 - 5.0 mmol/L [facility] LABORATORY Comment: Please note: ??Patients with WBC >100,00 0 may have falsely elevated Potassium levels. ??For accurate Potassium quantif ication in these patients send serum separator tube (gold top) for subsequent determinations. ??Contact the Clinical Chemistry Laboratory if there are any qu estions. Chloride 105 98 - 107 mmol/L [facility] LABORATORY CO2 23 22 - 31 mmol/L [facility] LABORATORY Anion Gap 8 5 - 15 mmol/L [facility] LABORATORY Calcium 7.8 (L) 8.5 - 10.5 mg/dL [facility] LABORATORY Estimated GFR 108 >=60 mL/min/1.73 m?? [facility] [...] Organization Address City/State/[place] [address] Magnesium (03/13/2021 5:40 AM EST) P athologist Signature Magnesium 1.03 0.69 - 1.07 [facility]/L [facility] LABORATORY Comment: result rechecked-SW Specimen Anatomical Collection Method Collection Time Receive d Time (Source) Location / / Volume Laterality Blood 03/13/2021 5:40 AM 2 5:56 EST AM EST Resulting Agency Comment Spec In Lab Martine Terri A Humaira DO CHEMISTRY ORDERABLES Performing Organization Address City/State/[place] [address] (ABNORMAL) Blood Gas Arterial (03/13/2021 5:35 AM EST) P athologist Signature pH Art 7.41 7.35 - 7.45 [facility] LABORATORY Comment: Sample contains one or more air bubbles which may result in falsely elevated pO2, decreased pCO2 and increased pH. pCO2 Art 40 35 - 45 mmHg [facility] LABORATORY Comment: Sample [...] BE Art 0.4 -3.0 - 3.0 mmol/L [facility] LABORATORY Hgb Blood Gas 9.9 (L) 13.7 - 16.5 g/dL [facility] LABORATORY O2HB Art 93.8 (L) 94.0 - 97.0 % [facility] LABORATORY COHB Art 0.7 % [facility] LABORATORY Comment: Nonsmokers: ??0.5-1.5% COHB Smokers: ??Variable, but usually less th an 10% Toxic: 20 - 30% COHB Lethal: ??Greater than 60% COHB METHB Art 0.3 <=1.5 % [facility] LABORATORY Na Whole Blood 133 (L) 135 - 145 mmol/L [facility] LABORATORY K Whole Blood 3.7 3.5 - 5.0 mmol/L [facility] LABORATORY Comment: Please note: ??Patients with WBC >100,00 0 may have falsely elevated Potassium levels. ??Contact the Clinical Chemistry Laboratory if there are any questions. ICa Whole Blood 1.09 (L) 1.15 - 1.33 mmol/L [facility] LABORATORY Comment: Note: ??Total bilirubin higher than 20 m g/dL may lead to falsely low ionized calcium. CL Whole Blood 104 98 - 107 mmol/L [facility] LABORATORY Gluc Whole Bld 128 65 - 199 mg/dL [facility] LABORATORY Comment: Diabetes: >=200 mg/dL plus symp toms. Lactate WB 1.2 0.5 - 2.2 mmol/L [facility] LABORATORY Specimen Anatomical Collection Method Collection Time Receive d Time (Source) Location / / Volume Laterality Blood Arterial Draw / 03/13/2021 5:35 AM 2021 5:55 Unknown EST AM EST Resulting Agency Comment Spec In Lab Kamron Charles MD CHEMISTRY ORDERABLES Performing Organization Address City/State/ZIP [place] [address] (ABNORMAL) Differential, Automated (03/13/2021 12:00 AM EST) [facility] gist Method Time Signature Neutrophils % 73.8 % [facility] LABORATORY Neutr Abs (ANC) 6.83 (H) 1.70 - [facility] 6.10 [facility] x10(3)[facility] LABORATORY Lymphocytes % 12.5 % [facility] LABORATORY Lymphocytes Abs 1.2 0.9 - 3.2 [facility] x10(3)[facility] LABORATORY Monocytes % 12.9 % [facility] LABORATORY Monocyte Abs 1.2 (H) 0.3 - 0.9 [facility] x10(3)[facility] LABORATORY Eosinophils % 0.1 % [facility] LABORATORY Eosinophils Abs 0.0 0.0 - 0.4 [facility] x10(3)[facility] LABORATORY Basophils % 0.3 % [facility] LABORATORY Basophils Abs 0.0 0.0 - 0.1 [facility] x10(3)[facility] LABORATORY Immature Gran % 0.40 % [facility] LABORATORY Comment: Immature granulocytes(IG's)percentage an d absolute count will include metamyelocytes, myelocytes, and promyelo cytes. Blood smears from CBCs yielding IG's will be scanned manually for concor dance. If this scan disagrees with the automated IG or if promyelocytes are not ed, a manual differential will be performed. Lata Gran Abs 0.04 0.00 - 0.04 x10(3)/[facility] LABORATORY Specimen (Source) Anatomical Collection Method Collection Time Re ceived Time Location / / Volume Laterality Blood 03/13/2021 03/13/2021 12:2 4 AM EST Resulting Agency Comment Spec In Lab Kamron Charles MD HEMATOLOGY ORDERABLES Performing Organization Address City/State/[place] [address] (ABNORMAL) Hemogram (03/13/2021 12:00 AM EST) Analysis Performed At Patho logist Time Signature WBC 9.3 4.0 - 9.5 [facility] x10(3)/[facility] LABORATORY RBC 3.21 (L) 4.58 - [facility] 5.54 [facility] x10(6)/[facility] LABORATORY Hemoglobin 9.3 (L) 13.7 - [facility] 16.5 g/dL [facility] LABORATORY Hematocrit 28.4 (L) 40.5 - [facility] 48.5 % [facility] LABORATORY MCV 88.5 82.9 - [facility] 93.1 [facility] LABORATORY MCH 29.0 27.5 - [facility] 32.1 pg [facility] LABORATORY MCHC 32.7 32.0 - [facility] 35.7 g/dL [facility] LABORATORY Platelets 298 145 - 357 [facility] x10(3)/[facility] LABORATORY RDWSD 42.0 36.0 - [facility] 45.0 [facility] LABORATORY RDWCV 12.9 11.4 - [facility] 13.8 % [facility] LABORATORY MPV 9.0 7.6 - 12.9 [facility] LABORATORY nRBC % Auto 0.0 % [facility] LABORATORY nRBC Abs Auto 0.000 0.000 - [facility] 0.000 [facility] x10(3)/[facility] LABORATORY Specimen (Source) Anatomical Collection Method Collection Time Re ceived Time Location / / Volume Laterality Blood 03/13/2021 03/13/2021 12:2 4 AM EST Resulting Agency Comment Spec In Lab Kamron Charles MD HEMATOLOGY ORDERABLES Performing Organization Address City/State/ZIP Code Phon e Number [place] [id number] [address] Heparin (unfractionated) Level (03/13/2021 12:00 AM EST) athologist Signature Heparin UFH 0.94 IU/mL [facility] LABORATORY Comment: Heparin (anti-Xa) levels should [...] Organization Address City/State/ZIP Code Phon e Number [place] [phone] Drive (ABNORMAL) CK (03/13/2021 12:00 AM EST) athologist Signature CK, Total 7,740 (H) 0 - 200 [facility] unit/L [facility] LABORATORY Specimen (Source) Anatomical Collection Method Collection Time Re ceived Time Location / / Volume Laterality Blood 03/13/2021 03/13/2021 12:2 4 AM EST Resulting Agency Comment Spec In Lab Martine Terri A Atchinson DO CHEMISTRY ORDERABLES Performing Organization Address City/State/ZIP Code Phon e Number [address] Phosphorus (03/13/2021 12:00 AM EST) athologist Signature Phosphorus 3.1 2.5 - 4.5 [facility] LABORATORY Specimen (Source) Anatomical Collection Method Collection Time Re ceived Time Location / / Volume Laterality Blood 03/13/2021 03/13/2021 12:2 4 AM EST Resulting Agency Comment Spec In Lab Martine Terri Gerardo DO CHEMISTRY ORDERABLES Performing Organization Address City/State/ZIP Code Phon e Number [address] (ABNORMAL) Basic Metabolic Panel (non-fasting) (03/13/2021 12:00 AM EST) athologist Signature Glucose Lvl 161 65 - 199 [facility] mg/dL [facility] LABORATORY Comment: Diabetes: >=200 mg/dL plus symp toms BUN 15 10 - 20 mg/dL [facility] LABORATORY Creatinine 0.73 (L) 0.80 - 1.50 mg/dL [facility] LABORATORY Sodium 132 (L) 135 - 145 mmol/L [facility] LABORATORY Potassium 3.4 (L) 3.5 - 5.0 mmol/L [facility] LABORATORY Comment: Please note: ??Patients with WBC >100,00 0 may have falsely elevated Potassium levels. ??For accurate Potassium quantif ication in these patients send serum separator tube (gold top) for subsequent determinations. ??Contact the Clinical Chemistry Laboratory if there are any qu estions. Chloride 101 98 - 107 mmol/L [facility] LABORATORY CO2 23 22 - 31 mmol/L [facility] LABORATORY Anion Gap 8 5 - 15 mmol/L [facility] LABORATORY Calcium 7.8 (L) 8.5 - 10.5 mg/dL [facility] LABORATORY Estimated GFR 100 >=60 mL/min/1.73 m?? [facility] [...] Organization Address City/State/ZIP [place] [address] (ABNORMAL) Magnesium (03/13/2021 12:00 AM EST) P athologist Signature Magnesium 0.68 (L) 0.69 - 1.07 [facility] mmol/L [facility] LABORATORY Specimen (Source) Anatomical Collection Method Collection Time Re ceived Time Location / / Volume Laterality Blood 03/13/2021 03/13/2021 12:2 4 AM EST Resulting Agency Comment Spec In Lab Martine Gerardo DO CHEMISTRY ORDERABLES Performing Organization Address City/State/ZIP [place] [address] (ABNORMAL) Blood Gas Arterial (03/12/2021 11:47 PM EST) Analysis Performed At Patho logist Time Signature pH Art 7.40 7.35 - [facility] 7.45 [facility] LABORATORY pCO2 Art 37 35 - 45 [facility] mmHg [facility] LABORATORY pO2 Art 76 (L) 85 - 104 [facility] LABORATORY HCO3 Art 22.6 20.0 - [facility] 26.0 [facility] LABORATORY BE Art -2.2 -3.0 - 3.0 [facility] mmol/L [facility] LABORATORY Hgb Blood Gas 10.0 (L) 13.7 - [facility] 16.5 g/dL [facility] LABORATORY O2HB Art 94.2 94.0 - [facility] 97.0 % [facility] LABORATORY COHB Art 0.8 % [facility] LABORATORY Comment: Nonsmokers: ??0.5-1.5% COHB Smokers: ??Variable, but usually less th an 10% Toxic: 20 - 30% COHB Lethal: ??Greater than 60% COHB METHB Art 0.3 <=1.5 % [facility] LABORATORY Na Whole Blood 132 (L) 135 - 145 mmol/L [facility] LABORATORY K Whole Blood 3.3 (L) 3.5 - 5.0 mmol/L [facility] LABORATORY Comment: Please note: ??Patients with WBC >100,00 0 may have falsely elevated Potassium levels. ??Contact the Clinical Chemistry Laboratory if there are any questions. ICa Whole Blood 1.06 (L) 1.15 - 1.33 mmol/L [facility] LABORATORY Comment: Note: ??Total bilirubin higher than 20 m g/dL may lead to falsely low ionized calcium. CL Whole Blood 103 98 - 107 mmol/L [facility] LABORATORY Gluc Whole Bld 172 65 - 199 mg/dL [facility] LABORATORY Comment: Diabetes: >=200 mg/dL plus symp toms. Lactate WB 0.9 0.5 - 2.2 mmol/L [facility] LABORATORY Specimen Anatomical Collection Method Collection Time Receive d Time (Source) Location / / Volume Laterality Blood Arterial Draw / 03/12/2021 11:47 03/13/19 22 Unknown PM EST 12:24 AM EST Resulting Agency Comment Spec In Lab Martine Gerardo DO CHEMISTRY ORDERABLES Performing Organization Address City/State/[place] [address] (ABNORMAL) BLOOD GAS 2 ARTERIAL (03/12/2021 5:23 PM EST) Analysis Performed At Patho logist Time Signature pH Art 7.36 7.35 - [facility] 7.45 [facility] LABORATORY pCO2 Art 34 (L) 35 - 45 [facility] LABORATORY pO2 Art 75 (L) 85 - 104 [facility] LABORATORY HCO3 Art 19.0 (L) 20.0 - [facility] 26.0 [facility] mmol/L [facility] LABORATORY BE Art -6.4 (L) -3.0 - 3.0 [facility] mmol/L [facility] LABORATORY Hgb Blood Gas 11.3 (L) 13.7 - [facility] 16.5 g/dL [facility] O2HB Art 92.6 (L) 94.0 - [facility] 97.0 % [facility] COHB Art 0.3 % [facility] LABORATORY Comment: Nonsmokers: 0.5-1.5% COHB Smokers: Variable, but usually less than 10% Toxic: 20-30% COHB Lethal: Greater than 60% COHB METHB Art 0.6 <=1.5 % [facility] LABORATORY Na Whole Blood 134 (L) 135 - 145 mmol/L [facility] LABORATORY K Whole Blood 3.7 3.5 - 5.0 mmol/L [facility] LABORATORY Comment: Please note: Patients with WBC >100,000 may have falsely elevated Potassium levels. Contact the Clinical Chemistry L aboratory if there are any questions. ICa Whole Blood 1.09 (L) 1.15 - 1.33 mmol/L [facility] LABORATORY Comment: Note: ??Total bilirubin higher than 20 m g/dL may lead to falsely low ionized calcium. CL Whole Blood 105 98 - 107 mmol/L [facility] LABORATORY Gluc Whole Bld 145 65 - 199 mg/dL [facility] LABORATORY Comment: Diabetes: >=200 mg/dL plus symp toms. Lactate WB 1.3 0.5 - 2.2 mmol/L [facility] LABORATORY FIO2 Art 21 % [facility] LABORATORY PF Ratio Art 357 [facility] LABORATORY Specimen Anatomical Collection Method Collection Time Receive d Time (Source) Location / / Volume Laterality Blood 03/12/2021 5:23 PM 2 5:23 EST PM EST Martine Gerardo DO CHEMISTRY ORDERABLES Performing Organization Address City/State/ZIP Code Phon e Number [address] (ABNORMAL) CK (03/12/2021 4:51 PM EST) P athologist Signature CK, Total 5,625 (H) 0 - 200 [facility] LABORATORY Comment: result rechecked-cher Specimen Anatomical Collection Method Collection Time Receive d Time (Source) Location / / Volume Laterality Blood Venous Draw / 03/12/2021 4:51 PM 03/12/19 22 5:16 Unknown EST PM EST Resulting Agency Comment Spec In Lab Karmon Charles MD CHEMISTRY ORDERABLES Performing Organization Address City/[facility]/ZIP Code Phon e Number [address] (ABNORMAL) Differential, Automated (03/12/2021 4:51 PM EST) Patholo gist Method Time Signature Neutrophils % 77.7 % [facility] LABORATORY Neutr Abs (ANC) 11.01 (H) 1.70 - [facility] 6.10 [facility] x10(3)/[facility] LABORATORY Lymphocytes % 12.9 % [facility] LABORATORY Lymphocytes Abs 1.8 0.9 - 3.2 [facility] x10(3)/[facility] LABORATORY Monocytes % 8.8 % [facility] LABORATORY Monocyte Abs 1.2 (H) 0.3 - 0.9 [facility] CENTER x10(3)/[facility] LABORATORY Eosinophils % 0.1 % [facility] LABORATORY Eosinophils Abs 0.0 0.0 - 0.4 [facility] x10(3)/[facility] LABORATORY Basophils % 0.1 % [facility] LABORATORY Basophils Abs 0.0 0.0 - 0.1 [facility] x10(3)/[facility] LABORATORY Immature Gran % 0.40 % [facility] LABORATORY Comment: Immature granulocytes(IG's)percentage an d absolute count will include metamyelocytes, myelocytes, and promyelo cytes. Blood smears from CBCs yielding IG's will be scanned manually for miguel a wu. If this scan disagrees with the automated IG or if promyelocytes are not ed, a manual differential will be performed. Lata Gran Abs 0.06 (H) 0.00 - 0.04 x10(3)/[facility] LABORATORY Specimen Anatomical Collection Method Collection Time Receive d Time (Source) Location / / Volume Laterality Blood 03/12/2021 4:51 PM 5:16 EST PM EST Resulting Agency Comment Spec In Lab Kamron Charles MD HEMATOLOGY ORDERABLES Performing Organization Address City/State/ZIP Code Phon e Number [place] [phone] HOSPITAL LAB[address]ATORY Drive (ABNORMAL) Hemogram (03/12/2021 4:51 PM EST) Analysis Performed At Patho logist Time Signature WBC 14.2 (H) 4.0 - 9.5 [facility] x10(3)/[facility] LABORATORY RBC 3.63 (L) 4.58 - [facility] 5[facility]54 [facility] x10(6)/[facility] LABORATORY Hemoglobin 10.6 (L) 13.7 - [facility] 16[facility] g/dL [facility] LABORATORY Hematocrit 32.7 (L) 40.5 - [facility] 48.5 % [facility] LABORATORY MCV 90.1 82.9 - [facility] 93.1 [facility] LABORATORY MCH 29.2 27.5 - [facility] CHANG 32.1 pg [facility] LABORATORY MCHC 32.4 32.0 - [facility] 35.7 g/dL [facility] LABORATORY Platelets 409 (H) 145 - 357 [facility] x10(3)/[facility] LABORATORY RDWSD 43.0 36.0 - [facility] 45.0 [facility] LABORATORY RDWCV 12.9 11.4 - [facility] 13.8 % [facility] LABORATORY MPV 9.2 7.6 - 12.9 [facility] LABORATORY nRBC % Auto 0.0 % [facility] LABORATORY nRBC Abs Auto 0.000 0.000 - [place] 0.000 [facility] x10(3)/[facility] LABORATORY Specimen Anatomical Collection Method Collection Time Receive d Time (Source) Location / / Volume Laterality Blood 03/12/2021 4:51 PM 2 5:16 EST PM EST Resulting Agency Comment Spec In Lab Kamron Charles MD HEMATOLOGY ORDERABLES Performing Organization Address City/[facility]/ZIP [place] [address] (ABNORMAL) Prothrombin Time (03/12/2021 4:51 PM EST) athologist Signature PT 20.6 (H) 9.4 - 12.5 [facility] LABORATORY INR 1.8 [facility] LABORATORY Comment: An INR <2.0 indicates [...] Gerardo DO HEMATOLOGY ORDERABLES Performing Organization Address City/[facility]/ZIP Code Phon e Number [place] [phone]OS[address] LAB[address]ORY Drive (ABNORMAL) APTT (03/12/2021 4:51 PM EST) P athologist Signature PTT >160 25 - 37 [facility] (Critical) [facility] LABORATORY Comment: Critical Result called by [...] Spec In Lab Martine Stack Mounikagifty AVILES HEMATOLOGY ORDERABLES Performing Organization Address City/[facility]/ZIP Code Phon e Number [address] Phosphorus (03/12/2021 4:51 PM EST) athologist Signature Phosphorus 3.6 2.5 - 4.5 [facility] mg/dL [facility] LABORATORY Specimen Anatomical Collection Method Collection Time Receive d Time (Source) Location / / Volume Laterality Blood 03/12/2021 4:51 PM 2 5:16 EST PM EST Resulting Agency Comment Spec In Lab Martine Stack [place]oun[place]if[place] AV[place]ES CHEMISTRY ORDERABLES Performing Organization Address City/[facility]/ZIP [place] [address] Magnesium (03/12/2021 4:51 PM EST) athologist Signature Magnesium 0.76 0.69 - 1.07 [facility] mmol/L [facility] LABORATORY Specimen Anatomical Collection Method Collection Time Receive d Time (Source) Location / / Volume Laterality Blood 03/12/2021 4:51 PM 2 5:16 EST PM EST Resulting Agency Comment Spec In Lab Martine Stack [place] CHEMISTRY ORDERABLES Performing Organization Address City/[facility]/ZIP [facility] [place] [address] (ABNORMAL) Basic Metabolic Panel (non-fasting) (03/12/2021 4:51 PM EST) athologist Signature Glucose Lvl 149 65 - 199 [facility] mg/dL [facility] LABORATORY Comment: Diabetes: >=200 mg/dL plus symp toms BUN 15 10 - 20 mg/dL [facility] LABORATORY Creatinine 0.78 (L) 0.80 - 1.50 mg/dL [facility] LABORATORY Sodium 138 135 - 145 mmol/L [facility] LABORATORY Potassium 4.3 3.5 - 5.0 mmol/L [facility] LABORATORY Comment: Please note: ??Patients with WBC >100,00 0 may have falsely elevated Potassium levels. ??For accurate Potassium quantif ication in these patients send serum separator tube (gold top) for subsequent determinations. ??Contact the Clinical Chemistry Laboratory if there are any qu estions. Chloride 107 98 - 107 mmol/L [facility] LABORATORY CO2 17 (L) 22 - 31 mmol/L [facility] LABORATORY Anion Gap 14 5 - 15 mmol/L [facility] LABORATORY Calcium 8.0 (L) 8.5 - 10.5 mg/dL [facility] LABORATORY Estimated GFR 97 >=60 mL/min/1.73 m?? [facility] [...] Organization Address City/State/[place] [address] (ABNORMAL) Heparin (unfractionated) Level (03/12/2021 4:51 PM EST) [facility] gist Method Time Signature Heparin UFH >2.00 IU/mL [facility] (Critical) [facility] LABORATORY Comment: Critical Result called by ?? [...] Organization Address City/State/ZIP [place] [address] Prepare RBC (03/12/2021 4:40 PM EST) P athologist Signature Dispensed? No [facility] LABORATORY Specimen Anatomical Collection Method Collection Time Receive d Time (Source) Location / / Volume Laterality Blood 03/12/2021 4:40 PM 2 4:39 EST PM EST Nilda Tineo CRNA BLOOD BANK ORDERABLES Performing Organization Address City/State/ZIP [place] [address] (ABNORMAL) CK (03/12/2021 3:27 PM EST) P athologist Signature CK, Total 2,740 (H) 0 - 200 [facility] unit/L [facility] LABORATORY Specimen Anatomical Collection Method Collection Time Receive d Time (Source) Location / / Volume Laterality Blood 03/12/2021 3:27 PM 2 3:35 EST PM EST Resulting Agency Comment Spec In Lab Martinedeep Murray Sreekanth Gerardo DO CHEMISTRY ORDERABLES Performing Organization Address City/State/[place] [address] (ABNORMAL) BLOOD GAS 2 ARTERIAL (03/12/2021 12:09 PM EST) Analysis Performed At Patho logist Time Signature pH Art 7.40 7.35 - [facility] 7.45 [facility] LABORATORY pCO2 Art 38 35 - 45 [facility] mmHg [facility] LABORATORY pO2 Art 248 (H) 85 - 104 [facility] LABORATORY HCO3 Art 23.2 20.0 - [facility] 26.0 [facility] mmol/L [facility] LABORATORY BE Art -1.7 -3.0 - 3.0 [facility] mmol/L [facility] LABORATORY Hgb Blood Gas 11.4 (L) 13.7 - [facility] 16.5 g/dL [facility] LABORATORY O2HB Art 98.8 (H) 94.0 - [facility] 97.0 % [facility] LABORATORY COHB Art 0.3 % [facility] LABORATORY Comment: Nonsmokers: 0.5-1.5% COHB Smokers: Variable, but usually less than 10% Toxic: 20-30% COHB Lethal: Greater than 60% COHB METHB Art 0.3 <=1.5 % [facility] LABORATORY Na Whole Blood 136 135 - 145 mmol/L [facility] LABORATORY K Whole Blood 4.0 3.5 - 5.0 mmol/L [facility] LABORATORY Comment: Please note: Patients with WBC >100,000 may have falsely elevated Potassium levels. Contact the Clinical Chemistry L aboratory if there are any questions. ICa Whole Blood 1.10 (L) 1.15 - 1.33 mmol/L [facility] LABORATORY Comment: Note: ??Total bilirubin higher than 20 m g/dL may lead to falsely low ionized calcium. CL Whole Blood 105 98 - 107 mmol/L [facility] LABORATORY Gluc Whole Bld 116 65 - 199 mg/dL [facility] LABORATORY Comment: Diabetes: >=200 mg/dL plus symp toms. Lactate WB 0.7 0.5 - 2.2 mmol/L [facility] LABORATORY FIO2 Art 66 % [facility] LABORATORY Flow Art 0.6 LPM [facility] LABORATORY PF Ratio Art 376 [facility] LABORATORY Temp Art 36.9 Celsius [facility] LABORATORY Specimen Anatomical Collection Method Collection Time Receive d Time (Source) Location / / Volume Laterality Blood 03/12/2021 12:09 03/12/2021 PM EST 12:09 PM EST Rosemary Wiley MD CHEMISTRY ORDERABLES Performing Organization Address City/[facility]/[place] [address] IR OR VASC Aniogram Image Storage Only (03/12/2021 12:08 PM EST) Specimen (Source) Anatomical Location Collection Method / Collectio n Time Received Time / Laterality Volume Narrative RAD - 03/12/2021 12:08 PM EST This exam is auto-finalizing. It's purpo se is for storage only. Marlene Rodríguez MD IMG FILM LIBRARY ORDERABLES Performing Organization Address City/[facility]/ZIP Code Phon e Number [place], [place] COVID-19 PCR (03/12/2021 10:40 AM EST) [facility] Method Time Signature SARS-CoV-2 Not Detected Not Detected [facility] RNA PCR [facility] LABORATORY Comment: This result should be interpreted [...] using the Simplexa COVID-19 Direct Assay by [employer] Societyanjelica huber as authorized by the FDA issued Emergency Use Authorization (EUA). This assay is intended for In-vitro Diagnostic (IVD) use with nasopharyngeal swabs collected from individuals meeting the CDC criteria for testing. assay is performed based on the instructions for use and additional guid ancmony provided by the FDA. Testing is performed in the Microbiology Laboratory within the Department of Pathology and Laboratory Medicine at [facility], certified under the Clinical Laboratory Improvement [...] clinical management guidance information are available at [facility] CDC Coronavirus Disease 2019 (COVID-19) webpage under Information fo r Healthcare Professionals (https://www.cdc.gov/coronavirus/2019-nc ov/hcp/index.html). Additional information about this and ot her EUA tests can be found in provider and patient fact sheets at the following FDA website: https://www.fda.gov/medical-devices/shzqiudjdjf-xdyzusr-8131-ikpvn-17-tjxpovief- umz-eaxzgwzqtbsbif-ampddyg-devices/ccfhh-yajzjpmdyvd-dmaa SARS-CoV-2 Source FILM OR TAPE LIBRARIAN Swab [facility] LABORATORY Specimen (Source) Anatomical Collection Method Collection Time Re ceived Time Location / / Volume Laterality Nasopharyngeal Swab 03/12/2021 10:40 03/02 AM EST 12:37 PM EST Comment: Symptoms->Surveillance Resulting Agency Comment Spec In Lab Reinaldo Merino MD MICROBIOLOGY - GENERAL ORDER LARRY Performing Organization Address City/State/[place] [address] Prepare RBC (03/12/2021 10:15 AM EST) P athologist Signature Dispensed? Yes [facility] LABORATORY Specimen Anatomical Collection Method Collection Time Receive d Time (Source) Location / / Volume Laterality Blood 03/12/2021 10:15 03/12/2021 AM EST 10:12 AM EST Nilda Tineo CRNA BLOOD BANK ORDERABLES Performing Organization Address City/State/[place] [address] Duplex for DVT, Leg, Unilat (03/12/2021 8:49 AM EST) Component Value Ref Test Analysis Performed At Patholo gist Range Method Time Signature VB Text Department: Vascular Surgery Lab VASCUBASE Report Patient: [id number] (AMILCAR PATE) CPT: 07488 Referring Physician: REINALDO MERINO ?? Phone: Indications: [...] who have questions please contact the health lpn care manager that requested your imaging first. ? Narrative [...] the thorax is provided for comparison. FINDINGS: Coremaker Floor Images: Noncontributory. CTA OF THE CHEST: Pulmonary [...] who have questions please contact the health lpn care manager that requested your imaging first. ? Narrative [...] the thorax is provided for comparison. FINDINGS: Coremaker Floor Images: Noncontributory. CTA OF THE CHEST: Pulmonary [...] Agency Comment Unexpected Finding Camacho Sevilla MD [facility] ORDERABLES Request For 2nd Read CT [...] of outside imaging study. * ??Sending Institution [facility] * ??Date of exam [id number] * ??I believe a reinterpretation of this exam may alter care of Patient. Yes TECHNIQUE: CT of the abdomen and pelvis with intravenous contrast was performed at [facility] on Jan. ??Helical CT images of the abdomen and pelvis were obtained wit h intravenous contrast. ??Per report, the patient received 100 mL Omnipaque 350 in travenous contrast. ??Multiplanar reformats were performed in the sagittal and coronal planes. ??Oral contrast was not administered. COMPARISON: There is no similar prior ex amination provided for comparison. FINDINGS: Coremaker Floor Images: Noncontributory. Lower chest: Visualized structures withi [...] who have questions please contact the health lpn care manager that requested your imaging first. ? --------ORIGINAL REPORT -------- EXAMINATION: * ??REQUEST FOR 2ND READ CT ABDOMEN AND PELVIS * ??CT OF THE ABDOMEN AND PELVIS WITH IN TRAVENOUS CONTRAST. CLINICAL HISTORY: 60-year-old male with initially presenting with low back pain right lower extremity is cold and mottle d. ??Request for second interpretation of outside imaging study. * ??Sending Institution [facility] * ??Date of exam 20210221 * ??I believe a reinterpretation of this exam may alter care of Patient. Yes TECHNIQUE: CT of the abdomen and pelvis with intravenous contrast was performed at [facility] on Jan. ??Helical CT images of the abdomen and pelvis were obtained wit h intravenous contrast. ??Per report, the patient received 100 mL Omnipaque 350 in travenous contrast. ??Multiplanar reformats were performed in the sagittal and coronal planes. ??Oral contrast was not administered. COMPARISON: There is no similar prior ex amination provided for comparison. FINDINGS: Coremaker Floor Images: Noncontributory. Lower chest: Visualized structures withi [...] who have questions please contact the health lpn care manager that requested your imaging first. ? Impressions [...] who have questions please contact the health lpn care manager that requested your imaging first. ? Narrative 03/12/2021 8:12 AM EST EXAMINATION: * ??REQUEST FOR 2ND READ CT ABDOMEN AND PELVIS * ??CT OF THE ABDOMEN AND PELVIS WITH IN TRAVENOUS CONTRAST. CLINICAL HISTORY: 60-year-old male with initially presenting with low back pain right lower extremity is cold and mottle d. ??Request for second interpretation of outside imaging study. * ??Sending Institution [facility] * ??Date of exam [id number] * ??I believe a reinterpretation of this exam may alter care of Patient. Yes TECHNIQUE: CT of the abdomen and pelvis with intravenous contrast was performed at [facility] on Jan. ??Helical CT images of the abdomen and pelvis were obtained wit h intravenous contrast. ??Per report, the patient received 100 mL Omnipaque 350 in travenous contrast. ??Multiplanar reformats were performed in the sagittal and coronal planes. ??Oral contrast was not administered. COMPARISON: There is no similar prior ex amination provided for comparison. FINDINGS: Coremaker Floor Images: Noncontributory. Lower chest: Visualized structures withi [...] of outside imaging study. * Sending Institution [facility] * Date of exam [id number] * I believe a reinterpretation of this e xam may alter care of Patient. Yes TECHNIQUE: CT of the abdomen and pelvis with intravenous contrast was performed at [facility] on Jan. Helical CT images of the abdomen and pelvis were obtained wit h intravenous contrast. Per report, the patient received 100 mL Omnipaque 350 in travenous contrast. Multiplanar reformats were performed in the sagittal and coronal planes. Oral contrast was not administered. COMPARISON: There is no similar prior ex amination provided for comparison. FINDINGS: Coremaker Floor Images: Noncontributory. Lower chest: Visualized structures withi [...] ho have questions please contact the health lpn care manager that requested your imaging first. Camacho Sevilla [...] 472 ms MUSE SYSTEM (Bezet) Calculated P [place] 28 degrees MUSE SYSTEM Calculated R [place] -6 degrees MUSE SYSTEM Calculated T [place] 55 degrees MUSE SYSTEM INTERPRETATION Normal sinus rhythm MUSE SYSTEM Nonspecific T wave abnormality Abnormal ECG When compared with ECG of 26-FEB-2021 17:47, No significant change was found I personally reviewed the tracing and edited the fellows int erpretation Confirmed by fellow Pato Corcoran ([id number]) on 03/12/2021 10 :37:34 PM Confirmed by [...] Time Signature pH Luis 7.40 7.32 - [facility] 7.42 [facility] LABORATORY pCO2 Luis 34 (L) 41 - 51 [facility] LABORATORY pO2 Luis 34 25 - 40 [facility] LABORATORY HCO3 Luis 20.5 mmol/L [facility] LABORATORY BE Luis -4.3 mmol/L [facility] LABORATORY Hgb Blood Gas 11.4 (L) 13.7 - [facility] 16.5 g/dL [facility] LABORATORY O2HB Luis 65.1 % [facility] LABORATORY COHB Luis 0.8 % [facility] LABORATORY Comment: Nonsmokers: 0.5-1.5% COHB Smokers: Variable, but usually less than 10% Toxic: 20-30% COHB Lethal: Greater than 60% COHB METHB Luis 0.7 <=1.5 % [facility] LABORATORY Na Whole Blood 135 135 - 145 mmol/L [facility] LABORATORY K Whole Blood 3.4 (L) 3.5 - 5.0 mmol/L [facility] LABORATORY Comment: Please note: Patients with WBC >100,000 may have falsely elevated Potassium levels. Contact the Clinical Chemistry L aboratory if there are any questions. ICa Whole Blood 1.11 (L) 1.15 - 1.33 mmol/L [facility] LABORATORY Comment: Note: ??Total bilirubin higher than 20 m g/dL may lead to falsely low ionized calcium. CL Whole Blood 102 98 - 107 mmol/L [facility] LABORATORY Gluc Whole Bld 135 65 - 199 mg/dL [facility] LABORATORY Comment: Diabetes: >=200 mg/dL plus symp toms Lactate WB 1.4 0.5 - 2.2 mmol/L [facility] LABORATORY BGas Source Venous [facility] LABORATORY Specimen Anatomical Collection Method Collection Time Receive d Time (Source) Location / / Volume Laterality Blood 03/12/2021 5:13 AM 2 5:13 EST AM EST Camacho Sevilla MD CHEMISTRY ORDERABLES Performing Organization Address City/[facility]/ZIP [place] [address] Bilirubin, Direct (03/12/2021 5:11 AM EST) P athologist Signature Bili, Direct 0.1 0.0 - 0.3 [facility] mg/dL [facility] LABORATORY Specimen Anatomical Collection Method Collection Time Receive d Time (Source) Location / / Volume Laterality Blood 03/12/2021 5:11 AM 2 5:18 EST AM EST Resulting Agency Comment Spec In Lab Camacho Sevilla MD CHEMISTRY ORDERABLES Performing Organization Address City/[facility]/ZIP Code Phon e Number [address] (ABNORMAL) Differential, Automated (03/12/2021 5:11 AM EST) Patholo gist Method Time Signature Neutrophils % 88.1 % [facility] LABORATORY Neutr Abs (ANC) 11.19 (H) 1.70 - [facility] 6.10 [facility] x10(3)/[facility] LABORATORY Lymphocytes % 6.5 % [facility] LABORATORY Lymphocytes Abs 0.8 (L) 0.9 - 3.2 [facility] x10(3)/[facility] LABORATORY Monocytes % 4.6 % [facility] LABORATORY Monocyte Abs 0.6 0.3 - 0.9 [facility] x10(3)/[facility] LABORATORY Eosinophils % 0.0 % [facility] LABORATORY Eosinophils Abs 0.0 0.0 - 0.4 [facility] x10(3)/[facility] LABORATORY Basophils % 0.2 % [facility] LABORATORY Basophils Abs 0.0 0.0 - 0.1 [facility] x10(3)/[facility] LABORATORY Immature Gran % 0.60 % [facility] LABORATORY Comment: Immature granulocytes(IG's)percentage an d absolute count will include metamyelocytes, myelocytes, and promyelo cytes. Blood smears from CBCs yielding IG's will be scanned manually for concor dance. If this scan disagrees with the automated IG or if promyelocytes are not ed, a manual differential will be performed. Lata Gran Abs 0.08 (H) 0.00 - 0.04 x10(3)/[facility] LABORATORY Specimen Anatomical Collection Method Collection Time Receive d Time (Source) Location / / Volume Laterality Blood 03/12/2021 5:11 AM 5:18 EST AM EST Resulting Agency Comment Spec In Lab Camacho Sevilla MD HEMATOLOGY ORDERABLES Performing Organization Address City/State/[place] [address] (ABNORMAL) Hemogram (03/12/2021 5:11 AM EST) Analysis Performed At Patho logist Time Signature WBC 12.7 (H) 4.0 - 9.5 [facility] x10(3)/[facility] LABORATORY RBC 3.74 (L) 4.58 - [facility] 5.54 [facility] x10(6)/[facility] LABORATORY Hemoglobin 10.7 (L) 13.7 - [facility] 16.[facility] g/dL [facility] LABORATORY Hematocrit 33.2 (L) 40.5 - [facility] 48.5 % [facility] LABORATORY MCV 88.8 82.9 - [facility]1 [facility] LABORATORY MCH 28.6 27.5 - [facility] 32.1 pg [facility] LABORATORY MCHC 32.2 32.0 - [facility] 35.7 g/dL [facility] LABORATORY Platelets 523 (H) 145 - 357 [facility] x10(3)/[facility] LABORATORY RDWSD 40.6 36.0 - [facility] LABORATORY RDWCV 12.4 11.4 - [facility] 13.8 % [facility] LABORATORY MPV 8.9 7.6 - 12.9 [facility] LABORATORY nRBC % Auto 0.0 % [facility] LABORATORY nRBC Abs Auto 0.000 0.000 - [facility] x10(3)/[facility] LABORATORY Specimen Anatomical Collection Method Collection Time Receive d Time (Source) Location / / Volume Laterality Blood 03/12/2021 5:11 AM 5:18 EST AM EST Resulting Agency Comment Spec In Lab Camacho Sevilla MD HEMATOLOGY ORDERABLES Performing Organization Address City/State/[place] [address] (ABNORMAL) Comprehensive metabolic panel (non-fasting) (03/12/2021 5:11 AM EST) P athologist Signature Glucose Lvl 135 65 - 199 [facility] mg/dL [facility] LABORATORY Comment: Diabetes: >=200 mg/dL plus symp toms BUN 17 10 - 20 mg/dL [facility] LABORATORY Creatinine 0.70 (L) 0.80 - 1.50 mg/dL [facility] LABORATORY Sodium 138 135 - 145 mmol/L [facility] LABORATORY Potassium 3.4 (L) 3.5 - 5.0 mmol/L [facility] LABORATORY Comment: Please note: ??Patients with WBC >100,00 0 may have falsely elevated Potassium levels. ??For accurate Potassium quantif ication in these patients send serum separator tube (gold top) for subsequent determinations. ??Contact the Clinical Chemistry Laboratory if there are any qu estions. Chloride 105 98 - 107 mmol/L [facility] LABORATORY CO2 19 (L) 22 - 31 mmol/L [facility] LABORATORY Anion Gap 14 5 - 15 mmol/L [facility] LABORATORY Calcium 7.8 (L) 8.5 - 10.5 mg/dL [facility] LABORATORY Total Protein 6.4 6.1 - 8.0 g/dL [facility] LABORATORY Albumin 3.4 3.2 - 5.2 g/dL [facility] LABORATORY AST 14 0 - 39 unit/L [facility] LABORATORY ALT 13 0 - 55 unit/L [facility] LABORATORY Alk Phos 80 40 - 130 unit/L [facility] LABORATORY Total Bilirubin 0.4 0.2 - 1.3 mg/dL [facility] LABORATORY Estimated GFR 102 >=60 mL/min/1.73 m?? [facility] [...] Organization Address City/State/[place] [address] Type and Screen Validity (03/12/2021 5:10 AM EST) [facility] Method Time Signature T&S only valid [facility] [place] at [facility] LABORATORY Comment: This Type and Screen result is only valid at the [facility] Hospital Specimen Anatomical Collection Method Collection Time Receive d Time (Source) Location / / Volume Laterality Blood 03/12/2021 5:10 AM 2 5:17 EST AM EST Resulting Agency Comment Spec In Lab Camacho Sevilla MD BLOOD BANK ORDERABLES Performing Organization Address City/State/ZIP Code Phon e Number [address] ABORH Recheck Status (03/12/2021 5:10 AM EST) [facility] Method [place] Signature ABORH Recheck Order Placed [facility] ANDREW K [facility] LABORATORY ABORH Type Complete [facility] LABORATORY Specimen Anatomical Collection Method Collection Time Receive d Time (Source) Location / / Volume Laterality Blood 03/12/2021 5:10 AM 2 5:17 EST AM EST Resulting Agency Comment Spec In Lab Camacho Sevilla MD BLOOD BANK ORDERABLES Performing Organization Address City/State/ZIP [place] [address] Antibody screen (03/12/2021 5:10 AM EST) [facility] Method [place] Signature Ab Screen Negative [facility] LABORATORY Expires at 03/15/2021 [place] [id number] on: [facility] LABORATORY Specimen Anatomical Collection Method Collection Time Receive d Time (Source) Location / / Volume Laterality Blood 03/12/2021 5:10 AM 2 5:17 EST AM EST Resulting Agency Comment Spec In Lab Camacho Sevilla MD BLOOD BANK ORDERABLES Performing Organization Address City/State/ZIP [place] [address] ABO/Rh Typing (03/12/2021 5:10 AM EST) P athologist Signature ABORh Type O Pos [facility] LABORATORY Specimen Anatomical Collection Method Collection Time Receive d Time (Source) Location / / Volume Laterality Blood 03/12/2021 5:10 AM 5:17 EST AM EST Resulting Agency Comment Spec In Lab Camacho Sevilla MD BLOOD BANK ORDERABLES Performing Organization Address City/State/[place] [address] Film Library- Storage Only CT Abdomen & Pelvis (02/21/2021 12:00 AM EST) Specimen (Source) Anatomical Location Collection Method / Collectio n Time Received Time / Laterality Volume Narrative [facility] - 03/12/2021 3:53 AM EST This exam is auto-finalizing. It's purpo se is for storage only. Rosemary Wiley MD IMG FILM LIBRARY ORDERABLES Performing Organization Address City/[facility]/ZIP Code Phon e Number [place], [place] SCAN DOC: IMPLANTABLE DEVICES (03/12/2020 12:00 [...] mg (2 tablets) for severe heartburn., Routine gelatin adsorbable (Gelfoam) sponge Given 03/12/2021 12:26 PM EST 1 each ONCE PRN, Starting on Thu03/12/21 at 1332, Until Thu03/12/21 at 1648, Intra-Operative (Intra-Procedure) HYDROmorphone (Dilaudid) (1 mg/mL) injection Given 2:05 [...] and other as needed pain medications., Routine iodixanoL (Visipaque) (320 Given 03/12/2021 3:38 PM 197 mLs 19- Surgical Site mg/mL) injection solution EST ONCE PRN, Starting on Thu03/12/21 at 1538, Until Thu03/12/21 at 1648, Intra-Operative (Intra-Procedure), Routine levothyroxine (Synthroid) tablet 88 mcg Given [...] Oral, DAILY PRN, Starting on 03/18/21 at 17 28, Until Thu03/20/21 at 1712, [...] prov ided on this medication record., Routine thrombin (Bovine) Given 03/12/2021 12:26 PM 20,000 Units 19- Surgical Site (Thrombinar) kit EST ONCE PRN, Starting on Thu03/12/21 at 1226, Until Thu03/12/21 at 1648, Intra-Operative (Intra-Procedure) documented in this encounter Active and Recently [...] Angelita Liu RN)2101 (Given - Provider: Cristina Lozano RN) sources not to exceed 4,000 mg. When or dered for pain, acetaminophen should be given even when other ordered pain medications are indicated., Routine apixaban (Eliquis) tablet 5 mg 1758 (Given - Provider: Bee Kaplan RN) 0843 (Given - Provider: Rosita Patel RN)211 (Given - Provider: Charlene Concepcion RN) 0936 [...] (COMPLETED) 1101 (New Bag - Provider: Sydnie Meredith, JOSE ELIAS) Intravenous, ONCE, 1 dose, On Thu03/19/21 at 1145 levothyroxine (Synthroid) tablet 88 mcg 0557 (Given - Provider: Cristina Lozano RN)1035 (APR Hold - Provider: Admin Adt - Reason: Transfer to a Procedural area)1419 (APR Unhold - Provider: Admin Adt) 0541 (Given - Provider: Cristina Lozano RN) 0542 (Given - Provider: Charlene Modi RN) 88 mcg, Oral, EVERY MORNING, First dose [...] - Reason: Transfer to a Procedural area)141 ([facility] Unhold - Provider: Admin Adt) 0600 (Patch [...] - Reason: Transfer to a Procedural area)141 ([facility] Unhold - Provider: Admin Adt) 08 (Given - Provider: Rosita Patel, JOSE ELIAS) 0936 (Given - Provider: Carolina Bullard RN) 40 mg, Oral, DAILY, First dose (after la st modification) on Thu03/18/21 at 0900, Until Discontinued polyethylene glycoL (Miralax) packet 17 g 0900 (Not Gi luis - Provider: Rosita Patel RN - Reason: Patient/family refused)1035 ([facility] Hold - Provider: Admin Adt - Reason: Transfer to a Procedural area)141 ([facility] Unhold - Provider: Admin Adt) 0843 (Given - Provider: Rosita Patel, JOSE ELIAS) 0900 (No t Given - Provider: Carolina Bullard RN - Reason: Patient/family refused) 17 g, Oral, DAILY, First dose on 03/02 at 1745, Until Discontinued, Routine senna-docusate (Pericolace) 8.6-50 mg per tablet 2 tab let 0900 (Not Given - Provider: Rosita Patel RN - Reason: Patient/family refused)1035 ([facility] Hold - Provider: Admin Adt - Reason: Transfer to a Procedural area)141 ([facility] Unhold - Provider: Admin Adt)2101 (Given - Provider: Cristina Lozano, JOSE ELIAS) 0843 (Given - Provider: Rosita Patel, JOSE ELIAS)2113 (Given - Provider: Charlene Modi, JOSE ELIAS) 0936 (Given - Provider: Carolina Bullard RN) 2 tablet, Oral, 2 TIMES DAILY, First dos e on Gisella 03/14/21 at 2100, Until Discontinued, Routine sodium chloride 0.9 % (flush) (BD PosiFlush Normal Nir ine 0.9) flush 5 mL 0900 (Given - Provider: Rosita Patel RN)2107 (Given - Provider: Cristina Lozano RN) 0844 [...] 0900 (Given - Provider: Rosita Patel RN)1035 (MAR Hold - Provider: Admin Adt - Reason: Transfer to a Procedural area)141 (MAR Unhold - Provider: Admin Adt)2107 (Given - [...] (New Bag - Provider: Cristina carmona RN)1035 (MAR Hold - Provider: Admin Adt - Reason: Transfer to a Procedural area)1419 (MAR Unhold - Provider: Admin Adt)172 (Stopped - Provider: Bee Kaplan RN) 0-5,000 [...] 03/20/2021 bisacodyL (Dulcolax) suppository 10 mg 1035 (APR Hold - Provider: Admin Adt - Reason: Transfer to a Procedural area)1419 ([facility] Unhold - Provider: Admin Adt) 10 mg, Rectal, DAILY PRN, Starting on Sa t 03/16/21 at 1108, Until 03/20/21 at 1712, Constipation, Routine calcium carbonate (Tums) chewable tablet 500 mg (CANCE LED) 0408 (Given - Provider: Cristina Lozano RN) 500 mg, Oral, DAILY PRN, Starting on 03/16/21 at 1322, Until 03/18/21 at 0731, Heartburn, Routine calcium carbonate (Tums) chewable tablet 500-1,000 mg 0808 (Given - Provider: Bee Kaplan RN)1035 ([facility] Hold - Provider: Admin Adt - Reason: Transfer to a Procedural area)1419 ([facility] Unhold - Provider: Admin Adt) 500-1,000 mg, Oral, EVERY 4 HOURS PRN, S tarting on Thu03/18/21 at 0728, Until Thu03/20/21 at 1712, Heartburn, Give 500 mg (1 tablet) for mild to moderate heartburn. Give 1,000 mg (2 tablets) for severe heartburn., Routine HYDROmorphone (Dilaudid) (1 mg/mL) injection syringe 0 .2 mg(Linked Group 2) 1035 ([facility] Hold - Provider: Admin Adt - Reason: Transfer to a Procedural area)1209 (See Alternative - Provider: Laura Cartagena RN)1419 ([facility] Unhold - Provider: Admin Adt) [...] syringe 0 .4 mg(Linked Group 2) 1035 ([facility] Hold - Provider: Admin Adt - Reason: Transfer to a Procedural area)1209 (Given - Provider: Laura Cartagena RN)1419 ([facility] Unhold - Provider: Admin Adt) 0.4 mg, [...] syringe 0 .6 mg(Linked Group 2) 1035 ([facility] Hold - Provider: Admin Adt - Reason: Transfer to a Procedural area)1209 (See Alternative - Provider: Laura Cartagena RN)1419 ([facility] Unhold - Provider: Admin Adt) [...] mg (CANCELED) 1227 (Given - Provider: Laura Zhou V RN) 0.2 mg, Intravenous, EVERY 10 MIN [...] area)1419 (MAR Unhold - Provider: Admin Adt) 3 mg [...] 0019 (Given - Provider: Hannah Lozano RN)1035 (APR Hold - Provider: Admin Adt - Reason: Transfer to a Procedural area)141 (APR Unhold - Provider: Admin Adt)2101 (Given - Provider: Cristina Lozano RN) 2117 (Given - Provider: Charlene Concepcion RN) 9 mg, Oral, NIGHTLY PRN, Starting on Gisella 03/14/21 at 1653, Until 03/20/21 at 1712, insomnia, Routine ondansetron (pf) (Zofran) [...] Procedural area)141 (APR Unhold - Provider: Admin Adt) 1049 (Given - Provider: Sydnie lee RN)2240 (See Alternative - Provider: Charlene Concepcion RN) 0546 (See Alternative - Provider: Charlene Concepcion RN) 10 mg, Oral, EVERY 4 HOURS PRN, Starting on Thu03/12/21 at 1644, Until Thu03/20/21 at 1712, Pain, severe pain (7-10), Routine oxyCODONE (Roxicodone) tablet 5 mg(Linked Group 4) 103 5 (APR Hold - Provider: Admin Adt - Reason: Transfer to a Procedural area)1419 ([facility] Unhold - Provider: Admin Adt) [...] area)1419 (APR Unhold - Provider: Admin Adt) 20-60 mEq, Per NG tube, EVERY 4 HOURS [place] N, Starting on Thu03/13/21 at 0104, Until [...] Routine documented in this encounter Care Teams Billing Services Manager Relationship Specialty Start Date End Date None PCP - General 03/12/21 04/25/21 None documented as of this encounter
--- OUTSIDE RECORDS SUMMARY | 2022-01-27 16:05 | XMS_ITS | Encounter Summary ---
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 Procedures EMERGENCY IPI Referral ID Status Reason Start Date Expiration Date Visits Requ ested Visits Authorized [id number] 1 1 Encounter Details Date Type Department Care Team Description 03/12/2021 Anesthesia Event Main Operating Room Maddie Lloyd ch, MD [facility] [place] [address] [facility] Nilda Tineo CRNA [facility] [place] [address] [place] [address] Anesthesia Record Procedure Summary Procedure Name Responsible Anesthesia Start Anesthesia Stop Anesthesiologist Time Time THROMBECTOMY, VENA CAVA, Maddie Peace MD 03/12/21 1102 0 03/12/21 1622 ILIAC, FEMOROPOPLITEAL VEIN BY LEG INCISION (WRVU 13.37) (Right: Groin) Events Date Time Event Comment 03/12/2021 1028 1102 AN Verify 1102 Start 1102 An Start Data 1137 An Induction 1139 An Intubation 1150 Quick Note Cell saver set u p, ready 1159 Anesthesia Ready 1216 Quick Note COVID nasal swab sent to lab 1229 Skin Incision Right medial thi gh 1231 Quick Note Right IJ central cordis placed by vascular fellow 1255 Quick Note A-line disconnec tahir at surgeon's request and transducer attac hed to venous line in pt's right groin for approx 5 minutes 1313 Break/Relief In I assumed care f or Break Relief before which we: 1. Identifie d the patient 2. Identified the responsible provider(s) 3. Reviewed the pertinent medica l history 4. Discussed the surgical plan an d course 5. Reviewed intra-op anesthesia manag ement and issues during anesthesia 6. Se t expectations for the relief (and/or post-pro cedure) period 7. Allowed opportunity for questions and acknowledgement of understanding Birgit Wallace, SENIOR RECRUITMENT CONSULTANT 1329 an too now No blood return on a-line. Flushes without difficulty. [facility] team notified - they will provide ACT samples 1344 Break/Relief Out 1531 Quick Note CK sent to lab P SR 1537 Quick Note Right IJ cordis removed from neck by Dr Rodríguez 1605 Extubation/LMA Out 1614 an stop data 1620 Recovery or ICU Handoff Patient care was transferred to the destination unit staff after review of the patient's medica l history, current anesthetic/surgi emilee status and plan, according to the Provider Handoff Checklist. 1622 Stop Name Total fentaNYL 250 mcg Propofol 150 mg Rocuronium 200 mg Ondansetron 4 mg heparin (porcine) 50 units/mL in sodium chloride 0.45% 500 mL infusion 0 Units ceFAZolin 4 g Heparin 10,000 Units Sugammadex 200 mg Lactated Ringers 600 mL Sodium Chloride 0.9% 800 mL Albumin (human) 5% 500 mL Agents Name O2 Air N2O Sevoflurane [...] 03/12/21 0000 by 1211 by vein (antecubital fossa), Varun Vilchis, Karlie Fernando V, right; [id number] RN [employer]URE [employer]UCER catheter system; Anatomical Landmarks; 18 gauge; from OSH; distraction; 03/20/21; 1211 PIV 03/12/21; median cubital 03/12/21 0000 by 0800 by vein (antecubital fossa), Varun Vilchis C oughlin, Steven, RN left; [id number] RN catheter system; Anatomical Landmarks; 18 gauge; outside hospital; distraction; 03/13/21; 0800 Urethral Catheter 03/12/21; 1123; Surgery 03/12/21 1123 by 03/16 1040 by longer than 2 hours; Celia Viera RN Trevi no, Bess A, RN indwelling catheter with core temperature probe; [...] catheter intact, no longer indicated; 03/14/21; 1752 ETT ETT Type: Cuffed, Oral; 03/12/21 1141 by 2 1608 by ETT Size: 8 mm; Nilda Shelby CRNA Peter, L ori M, CRNA Blade: 4; Notes: Asleep, Pre-O2, Stylette; Attempts: 1; Laryngoscopy Grade: 1; ETT Placement Verified By: Auscultation, Capnometry, Visual; Secured at Teeth: 24 cm; Inserted by: Nilda Tineo CRNA PIV 03/12/21; 1150; cephalic 03/12/21 1150 by 1211 by vein (lateral side of Nilda Tineo, Karlie Hoskins V, arm), left; FURNITURE REPRODUCER [id number] catheter system; Anatomical Landmarks; 14 gauge; 03/20/21; 1211 Incision 03/12/21; 1226; Right; 03/12/21 1226 by 05/03/21 1033 by groin; LDA not present Celia Viera, RN Lauren James, JOSE ELIAS upon assessment; 05/03/21; 1033 Drain/Device Site 03/12/21; 1550; Right; 03/12/21 1550 by 1136 by anterior; thigh; Mary Dorman, Elvis Bishop, collapsible closed RN device; ; Sterile prep and drape; 19 Fr Kenton drain; 03/18/21; 1136 documented in this encounter Social History Tobacco Use Types Packs/Day Years Used Date Smoking Tobacco: Former Smokeless Tobacco: Never Alcohol Use Standard Drinks/Week Comments Not Currently 0 (1 standard drink = 0.6 oz pure alcoho l) about once a month Sex Assigned at Date Recorded Not on file documented as of this encounter OR Notes Anesthesia Postprocedure Evaluation - Maddie Peace MD - 03/12/2021 4:29 PM EST Department of Anesthesiology Post-procedure Note Patient: Zander Waldron Procedure Summary Date: 03/12/21 Room / Location: [address] MAIN OR Anesthesia Start: 110 Anesthesia Stop: Procedures: THROMBECTOMY, VENA CAVA, ILIAC, FEMOROPOPLITEAL VEIN BY LEG INCISION (WRVU 13.37) (Right Groin) FASCIOTOMY, LOWER LEG, ALL COMPARTMENTS -TIFFANY (WRVU 7.82) (Right Leg Lower) INSERT INTRAVASC VENA CAVA FILTER, ENDOVASCR APPR, WHEN PERFORMED (WRVU 4.71) (N/A Trunk) Diagnosis: (phlegmasia) Surgeons: Steven Rodríguez MD Responsible Provider: Maddie Peace MD Anesthesia Type: general ASA Status: 4 - Emergent All Anesthesia Providers: Anesthesiologist: Humera Akins MD; Maddie Peace MD SENIOR RECRUITMENT CONSULTANT: Nilda Tineo CRNA Vitals Value Taken Time BP Temp Pulse Resp SpO2 Pain Level Patient Location: ICU Level of Consciousness: Awake and Alert Pain Management: Satisfactory Analgesia PONV: None Cardiovascular Status: At Baseline Respiratory Status: At Baseline Postoperative Fluid Status: Intravascular EUvolemia Possible Anesthetic Complications: NONE apparent at time of evaluation Final Primary Anesthesia Type: General (The anesthetic type performed was the same as planned.) Comments: Anesthesia Preprocedure Evaluation - Humera Akins MD - 03/12/2021 10:20 AM EST Pre-Anesthesia Evaluation for: Zander Waldron a 60 y.o. male. Procedure(s): THROMBECTOMY, VENA CAVA, ILIAC, FEMOROPOPLITEAL VEIN BY LEG INCISION (WRVU 13.37) FASCIOTOMY, LOWER LEG, ALL COMPARTMENTS -TIFFANY (WRVU 7.82) INSERT INTRAVASC VENA CAVA FILTER, ENDOVASCR APPR, WHEN PERFORMED (WRVU 4.71) Patient Active Problem List Diagnosis ??? IVC [...] 3.66) performed by Rc Carrasquillo MD at [facility] END[facility] ??? PRO COLONOSCOPY, DIAGNOSTIC N/A 03/11/2021 COLONOSCOPY, DIAGNOSTIC performed by Titi Stroud MD at [facility] ??? PRO COLONOSCOPY, FLEX, W/DIR SUBMUC INJECT N/A 05/07/2020 COLONOSCOPY WITH DIRECTED SUBMUCOSAL INJ (WRVU 3.66) performed by Rc Carrasquillo MD at [facility] ??? PRO COLONOSCOPY, REMV LESN, SNARE N/A 12/11/2016 COLONOSCOPY, POLYPECTOMY, REMOVAL LESION BY SNARE (WRVU 4.67) performed by Jewels Wilkerson MD at [facility] ??? PRO COLONOSCOPY, REMV LESN, SNARE N/A 05/07/2020 COLONOSCOPY, POLYPECTOMY, REMOVAL LESION BY SNARE (WRVU 4.67) performed by Rc Carrasquillo MD at [facility] ??? PRO HEMORRHOIDECTOMY, INT/EXT, COMPLX N/A 10/28/2016 HEMORRHOIDECTOMY, INTERNAL & EXTERNAL, COMPLEX (WRVU 6.73) performed by Matt Sullivan MDat [facility] ??? PRO UPPER GI ENDOSCOPY, BIOPSY N/A 03/11/2021 EGD WITH BIOPSY (WRVU 2.49) performed by Titi Stroud MD at [facility] ??? PRO UPPER GI ENDOSCOPY, DIAGNOSTIC N/A 05/07/2020 EGD, UPPER GI ENDOSCOPY performed by Rc Carrasquillo MD at [facility] Social History Tobacco Use ??? Smoking status: Former Smoker ??? Smokeless tobacco: Never Used Substance Use Topics ??? Alcohol use: Not Currently Comment: about once a month Social History Substance and Sexual Activity Drug Use No No Known Allergies Medications: MAR and/or home medications have been reviewed. Physical Exam: Preprocedure Vitals Current as of 03/12/21 1020 BP: 118/75 Pulse: 83 Resp: 16 SpO2: 96 Temp: 37.1 ??C (98.8 ??F) Height: Weight: 86.2 kg (190 lb) (03/12/21) BMI: IBW: Last edited 03/12/21 0700 by RV Currently displaying vitals information from multiple entries within 90 minutes of most recent vitals. Airway Assessment: Mallampati: I TM distance: >3 FB Neck ROM: full Cardiovascular Assessment: system normal Pulmonary Assessment: unlabored breathing pulmonary exam normal Dental Assessment: Misc Assessment: Patient is wearing No contact(s). IV access: Peripheral line Last Filed Perioperative Cognitive Screening None Anesthesia Plan: ASA 4 emergent general, with a(n) intravenous induction 60 yo male for right lower extremity thrombectomy , hx of IVC thrombosis in 01/2021. was off of his anticoagulation for colonoscopy earlier this week. Now presenting with vascular insufficiency of RLE.GERD well controlled. NPO>8h. Plan [place]. Region - Intrathoracic Cardiac Informed Consent: Anesthetic plan and risks discussed with patient. Use of blood products discussed with patient who. Plan discussed with SENIOR RECRUITMENT CONSULTANT. Anesthesia Screening documented in this encounter Plan of Treatment Not on filedocumented as of this encounter Visit Diagnoses Not on filedocumented in this encounter Administered Medications Inactive Administered Medications - up to 3 most recent administrations Medication Order MAR Action Action Date Dose Rate Site albumin (human) 5% 250 mL New Bag 03/12/2021 3:10 PM EST intravenous solution Intravenous, CONTINUOUS PRN, Starting on Thu03/12/21 at 1435, Until Thu03/13/21 at 0803, Anesthesia Intra-op, Routine New Bag 03/12/2021 2:55 PM EST New Bag 03/12/2021 2:35 PM EST ceFAZolin (Ancef) 1 g in dextrose 5% 50 mL Given 03/12/2021 3:56 PM EST 2 g infusion Intravenous, PRN, Starting on Thu03/12/21 at 1159, Until Thu03/13/21 at 0803, Administer over 30 Minutes, Anesthesia Intra-op Given 03/12/2021 11:59 AM EST 2 g fentaNYL (pf) (50 mcg/mL) multi-dose Given 03/12/2021 3:54 PM ES T 50 mcg injection Intravenous, PRN, Starting on Thu03/12/21 at 1121, Until Thu03/13/21 at 0803, Anesthesia Intra-op, Routine Given 03/12/2021 3:25 PM EST 50 mcg Given 03/12/2021 11:21 AM EST 50 mcg heparin (porcine) (1,000 units/mL) Given 03/12/2021 1:20 PM EST 10,000 Units injection Intravenous, PRN, Starting on Thu03/12/21 at 1320, Until Thu03/13/21 at 0803, Anesthesia Intra-op, Routine lactated ringers infusion New Bag 03/12/2021 11:08 AM EST Intravenous, CONTINUOUS PRN, Starting on Thu03/12/21 at 1108, Until Thu03/13/21 at 0803, Anesthesia Intra-op ondansetron (pf) (Zofran) (2 mg/mL) inje ction Given 03/12/2021 3:43 PM EST 4 mg Intravenous, PRN, Starting on Thu03/12/21 at 1543, Until Thu03/13/21 at 0803, Anesthesia Intra-op, Routine propofoL (Diprivan) 10 mg/mL bolus injection Given 12/2021 11:38 AM EST 150 mg (Anesthesia) Intravenous, PRN, Starting on Thu03/12/21 at 1138, Until Thu03/13/21 at 0803, Anesthesia Intra-op rocuronium (Zemuron) (10 mg/mL) multi-dose Given 03/12/2021 2:01 PM EST 30 mg injection Intravenous, PRN, Starting on Thu03/12/21 at 1139, Until Thu03/13/21 at 0803, Anesthesia Intra-op, Routine Given 03/12/2021 1:48 PM EST 20 mg Given 03/12/2021 12:55 PM EST 50 mg sodium chloride 0.9% infusion New Bag 03/12/2021 11:08 AM EST Intravenous, CONTINUOUS PRN, Starting on Thu03/12/21 at 1108, Until Thu03/13/21 at 0803, Anesthesia Intra-op sugammadex (Bridion) 100 mg/mL injection Given 03/12/2021 4:01 PM EST 200 mg Intravenous, PRN, Starting on Thu03/12/21 at 1601, Until Thu03/13/21 at 0803, Anesthesia Intra-op, Routine documented in this encounter Care Teams Patrol Deputy Sheriff Relationship Specialty Start Date End Date None PCP - General 03/12/21 04/25/21 None documented as of this encounter
--- OUTSIDE RECORDS SUMMARY | 2022-01-27 16:06 | XMS_ITS | Encounter Summary ---
:1960 Author Organization [facility] [place] [address] Care Team Providers Name Role Phone Unavailable Primary Care Provider Unavailable Encounter Details Date Type Department Care Team Description 04/12/2020 Telephone Gastroenterology at [facility] [place] [address] Social History Tobacco Use Types Packs/Day Years Used Date Smoking Tobacco: Former Smokeless Tobacco: Never Alcohol Use Standard Drinks/Week Comments Yes 0 (1 standard drink = 0.6 oz pure alcoho l) rarely Sex Assigned at Date Recorded Not on file documented as of this encounter Miscellaneous Notes Telephone Encounter - Lauren Villaseñor - 04/12/2020 9:15 AM EST Zander Waldron [id number] Diagnosis/Indication: Diverticulosis and Gastro-esophageal reflux disease without esophagitis 1. Have you ever had a/an Upper Endoscopy & Colonoscopy before? Yes: Date 12/11/2016 colo If yes, did you have any problems with the procedure? No What type of sedation was used: IV Conscious Sedation 2. Do you take any Blood Thinners? No 3. Do you have a Pacemaker or Defibrillator device? No 4. Are you a diabetic? No 5. Do you have any Allergies to Eggs, Latex or Medications? No 6. Do you take any Oral Iron Supplements (Including multi-vitamins)? No 7. Do you have a history of three or more abdominal surgeries? No 8. Have you had a problem with sedation or anesthesia? No 9. Do you have a c-pap machine or oxygen tank? Neither 10. Do you take prescription narcotic pain medications, including suboxone or methodone? No 11. Do you have a preference regarding the gender of your provider? Yes: Male 12. Is there any other information you would like to give us to aid in scheduling? Yes: THURSDAY 13. Say to patient: You must have a responsible alliance party who will drive you to your procedure, stay on campus for the entire duration of your procedure, and drive you home from your procedure? *Please Verify the height and weight, and adjust if height and/or weight have changed* Estimated body mass index is 30.53 kg/m?? as calculated from the following: Height as of 11/24/16: 177.8 cm (5' 10). Weight as of 11/24/16: 96.5 kg (212 lb 12.8 oz). *Delete if not needed* Height: 5'10 Weight: 210 BMI: 30.1 Age:59 y.o. documented in this encounter Plan of Treatment Not on filedocumented as of this encounter Visit Diagnoses Not on filedocumented in this encounter
--- OUTSIDE RECORDS SUMMARY | 2022-01-27 16:06 | XMS_ITS | Encounter Summary ---
:1960 Author Organization [facility] [place] [address] Care Team Providers Name Role Phone Brooks Duarte MD Primary Care Provider [phone] Encounter Details Date Type Department Care Team Description 02/27/2021 Telephone Gastroenterology at [facility] [place] [address] Social History Tobacco Use Types Packs/Day Years Used Date Smoking Tobacco: Former Smokeless Tobacco: Never Alcohol Use Standard Drinks/Week Comments Yes 0 (1 standard drink = 0.6 oz pure alcoho l) about once a month Sex Assigned at Date Recorded Not on file documented as of this encounter Miscellaneous Notes Telephone Encounter - Jana Jones - 02/27/2021 9:27 AM EST Zander Waldron [id number] Diagnosis/Indication: 1. Have you ever had a/an Upper Endoscopy & Colonoscopy before? Yes: Date 2020 If yes, did you have any problems with the procedure? No What type of sedation was used: None 2. Do you take any blood thinners or have you been diagnosed with a bleeding disorder that increasesyour risk of bleeding with procedures? Yes: Type: eliquis 3. Do you have a Pacemaker or [...] sedation or anesthesia? No 9. Do you use a c-pap machine or oxygen tank? Neither 10. Do you take prescription narcotic pain medications, including suboxone or methodone? No 11. Do you have a preference regarding the gender of your provider? No Preference 12. Is there any other information you would like to us to note for the provider and nursing team who will perform your case? No 13. Say to patient: You must have a responsible republican who will drive you to your procedure, stay on campus for the entire duration of your procedure, and drive you home from your procedure? *Please Verify the height and weight, and adjust if height and/or weight have changed* Estimated body mass index is 32.07 kg/m?? as calculated from the following: Height as of 02/26/21: 174 cm (5' 8.5). Weight as of 02/26/21: 97.1 kg (214 lb). Age:60 y.o. documented in this encounter Plan of Treatment Not on filedocumented as of this encounter Visit Diagnoses Not on filedocumented in this encounter Care Teams Forest Law And Policy Professor Relationship Specialty Start Date End Date Brooks Duarte MD PCP - General Family Medicine 05/07/20 03/11/21 [address] [place] [address] documented as of this encounter
--- OUTSIDE RECORDS SUMMARY | 2022-01-27 16:06 | XMS_ITS | Encounter Summary ---
:1960 Author Organization [facility] [place] [address] Care Team Providers Name Role Phone Unavailable Primary Care Provider Unavailable Encounter Details Date Type Department Care Team Description 04/16/2020 Telephone Gastroenterology at [facility] [place] [address] Social History Tobacco Use Types Packs/Day [...]
--- OUTSIDE RECORDS SUMMARY | 2022-01-27 16:06 | XMS_ITS | Encounter Summary ---
:1960 Author Organization [facility] [place] [address] Care Team Providers Name Role Phone Unavailable Primary Care Provider Unavailable Encounter Details Date Type Department Care Team Description 10/29/2016 Telephone Surgical Intensive Care Unit Eld erDilip IV, MD - [facility] [place] [address] [place] [address] [phone] Social History Tobacco Use Types Packs/Day Years Used Date Smoking Tobacco: Never Assessed Sex Assigned at Date Recorded Not on file documented as of this encounter Miscellaneous Notes Telephone Encounter - Dilip Bowles IV - 10/29/2016 6:02 PM EDT Spoke with patient at 1758 regarding his difficulty urinating. He is s/p hemorrhoid resection 10/[address] Sullivan. He was urinating without issue this morning, but had two spells of feeling the urge to urinate and not being able to void. After a time, he was able to urinate without difficulty by raising one leg. He denies hematuria, dysuria, burning while urinating, fevers, chills, nausea, vomiting. We spoke regarding fevers, pain, bleeding and and nausea/vomiting that would warrant an earlier evaluation that his scheduled follow up 11/24. The patient is currently urinating without pain or difficulty. Dilip Bowles MD PGY-2 General Surgery Pager [phone] Team pager [phone] documented in this encounter Plan of Treatment Not on filedocumented as of this encounter Visit Diagnoses Not on filedocumented in this encounter
--- OUTSIDE RECORDS SUMMARY | 2022-01-27 16:06 | XMS_ITS | Encounter Summary ---
:1960 Author Organization [facility] [place] [address] Care Team Providers Name Role Phone Unavailable Primary Care Provider Unavailable Encounter Details Date Type Department Care Team Description 04/06/2020 Telephone Gastroenterology at [facility] [place] [address] Social History Tobacco Use Types Packs/Day Years [...]
--- OUTSIDE RECORDS SUMMARY | 2022-01-27 16:06 | XMS_ITS | Encounter Summary ---
:1960 Author Organization [facility] Address [address] [place] [address] Care Team Providers Name Role Phone Brooks Duarte MD Primary Care Provider [phone] Reason for Visit Auth/Cert Specialty Diagnoses / Procedures Referred By Contact Refer red To Contact Diagnoses Diverticulosis of intestine GERD (gastroesophageal reflux disease) Diverticulosis of intestine, part unspecified, without perforation or abscess without bleeding Diverticulosis and Gastro-esophageal reflux disease without esophagitis Procedures PRO UPPER GI ENDOSCOPY, DIAGNOSTIC PRO COLONOSCOPY, DIAGNOSTIC PRO UPPER GI ENDOSCOPY, BIOPSY PRO UP GI ENDOSCOPY, REMV TUMOR, SNARE PRO COLONOSCOPY, BIOPSY PRO COLONOSCOPY, REMV LESN, SNARE EGD, UPPER GI ENDOSCOPY COLONOSCOPY, DIAGNOSTIC Referral ID Status Reason Start Date Expiration Date Visits Requ ested Visits Authorized [id number] 1 1 Encounter Details Date Type Department Care Team Description 05/07/2020 Surgery Gastroenterology at [facility] [place] [place] Rc Carrasquillo, EGD, UPPER GI [facility] Izzy [place] [address] [facility] [phone] GASTROENTEROLOGY DEPT. [place], [place] [address] Social History Tobacco Use Types Packs/Day Years Used Date Smoking Tobacco: Former Smokeless Tobacco: Never Alcohol Use Standard Drinks/Week Comments Yes 0 (1 standard drink = 0.6 oz pure alcoho l) about once a month Sex Assigned at Date Recorded Not on file documented as of this encounter Last Filed Vital Signs Vital Sign Reading Time Taken Comments Blood Pressure 119/71 05/07/2020 11:15 AM EST Pulse 66 05/07/2020 11:15 AM EST Temperature 36.6 ??C (97.9 ??F) 05/07/2020 9:35 AM EST Respiratory Rate 19 05/07/2020 11:15 AM EST Oxygen Saturation 98% 05/07/2020 11:15 AM EST Inhaled Oxygen Concentration - - Weight 96.2 kg (212 lb) 05/07/2020 9:35 AM EST Height 177.8 cm (5' 10) 05/07/2020 9:35 AM EST Body Mass Index 30.42 05/07/2020 9:35 AM EST documented in this encounter Discharge Instructions Discharge InstructionsTiti Richardson RN - 05/07/2020 12:07 PM EST Colonoscopy: What to Expect at Home Your Recovery Your doctor will talk to you about when you will need your next colonoscopy. Your doctor can help you decide how often you need to be checked. This will depend on the results of your test and your riskfor colorectal cancer. After the test, you may be bloated or have gas pains. You may need to pass gas. If a biopsy was doneor a polyp was removed, you may have streaks of blood in your stool (feces) for a few days. Problemssuch as heavy rectal bleeding may not occur until several weeks after the test. This isn't common. But it can happen after polyps are removed. This care sheet gives you a general idea about how long it will take for you to recover. But each person recovers at a different pace. Follow the steps below to get better as quickly as possible. How can you care for yourself at home? Activity Rest when you feel tired. ?? You can do your normal activities when it feels okay to do so. Diet ?? Follow your doctor's directions for eating. ?? Unless your doctor has told you not to, drink plenty of fluids. This helps to replace the fluidsthat were lost during the colon prep. ?? Do not drink alcohol. Medicines ?? Your doctor will tell you if and when you can restart your medicines. He or she will also give you instructions about taking any new medicines. ?? If you take blood thinners, such as warfarin (Coumadin), clopidogrel (Plavix), or aspirin, be sure to talk to your doctor. He or she will tell you if and when to start taking those medicines again.Make sure that you understand exactly what your doctor wants you to do. ?? If polyps were removed or a biopsy was done during the test, your doctor may tell you not to take aspirin or other anti-inflammatory medicines for a few days. These include ibuprofen (Advil, Motrin) and naproxen (Aleve). Other instructions ?? For your safety, do not drive or operate machinery until the medicine wears off and you can think clearly. Your doctor may tell you not to drive or operate machinery until the day after your test. ?? Do not sign legal documents or make major decisions until the medicine wears off and you can think clearly. The anesthesia can make it hard for you to fully understand what you are agreeing to. Additional Information for Sedation Patients For patients who received sedation: ?? You may have received medications before and/or during your procedure which effects your judgement and reaction time. ?? Do not drive, operate machinery, drink alcoholic beverages or make important decisions for 24 hours. ?? Be careful on stairs as you may be unsteady on your feet. ?? You may eat a regular diet as tolerated. ?? Do not smoke if you are alone. ?? IV site: Slight redness or tenderness is normal, you can use a warm compress if you would like. If tenderness and/or redness increase or if foul drainage occurs, please contact your Doctor. Please call [phone] before 8pm Mon-Fri with problems, questions or concerns. If you call after 8pm or on weekends, call the Hospital at [phone] and ask to speak to the [employer] title one kindergarten teacher and the coke crusher operator will contact that person for you. When should you call for help? Call [phone] anytime you think you may need emergency care. For example, call if: ?? You passed out (lost consciousness). ?? You pass maroon or bloody stools. ?? You have trouble breathing. Call your doctor now or seek immediate medical care if: ?? You have pain that does not get better after you take pain medicine. ?? You are sick to your stomach or cannot drink fluids. ?? You have new or worse belly pain. ?? You have blood in your stools. ?? You have a fever. ?? You cannot pass stools or gas. Watch closely for changes in your health, and be sure to contact your doctor if you have any problems. Where can you learn more? [facility] View your After Visit Summary and more online at [email or web address] If you would like to provide feedback about your hospital experience, please call the Office of Patient and Family Relations at . If you have received this After Visit Summary in error, please immediately return it in person to the department, or notify the [facility] Privacy Office by calling toll free at between the hours of 8AM and 5PM to arrange for our retrieval of the documents at no cost to you. Content Version: 12.2 ?? 6185-2110 [employer]. Care instructions adapted under license by [facility]. If you have questions about a medical condition or this instruction, always ask your healthcare professional. [employer] disclaims any warranty or liability for your use of this information.Upper GI Endoscopy: What to Expect at Home Your Recovery You will be able to go home after your doctor or nurse checks to make sure you are not having any problems. You may have to stay overnight if you had treatment during the test. You may have a sore throat for a day or two after the test. This care sheet gives you a general idea about what to expect after the test. How can you care for yourself at home? Activity Rest when you feel tired. ?? You can do your normal activities when it feels okay to do so. Diet ?? Follow your doctor's directions for eating. ?? Unless your doctor has told you not to, drink plenty of fluids. This helps to replace the fluidsthat were lost during the prep. ?? Do not drink alcohol. Medicines ?? Your doctor will tell you if and when you can restart your medicines. He or she will also give you instructions about taking any new medicines. ?? If you take blood thinners, such as warfarin (Coumadin), clopidogrel (Plavix), or aspirin, be sure to talk to your doctor. He or she will tell you if and when to start taking those medicines again.Make sure that you understand exactly what your doctor wants you to do. ?? If polyps were removed or a biopsy was done during the test, your doctor may tell you not to take aspirin or other anti-inflammatory medicines for a few days. These include ibuprofen (Advil, Motrin) and naproxen (Aleve). ?? If you have a sore throat the day after the procedure, use an zedg-ags-pjofoft spray to numb yourthroat. Sucking on throat lozenges and gargling with warm salt water may also help relieve your symptoms. Other instructions ?? For your safety, do not drive or operate machinery until the medicine wears off and you can think clearly. Your doctor may tell you not to drive or operate machinery until the day after your test. ?? Do not sign legal documents or make major decisions until the medicine wears off and you can think clearly. The anesthesia can make it hard for you to fully understand what you are agreeing to. Additional Information for Sedation Patients For patients who received sedation: ?? You may have received medications before and/or during your procedure which effects your judgement and reaction time. ?? Do not drive, operate machinery, drink alcoholic beverages or make important decisions for 24 hours. ?? Be careful on stairs as you may be unsteady on your feet. ?? You may eat a regular diet as tolerated. ?? Do not smoke if you are alone. ?? IV site: Slight redness or tenderness is normal, you can use a warm compress if you would like. If tenderness and/or redness increase or if foul drainage occurs, please contact your Doctor. Please call [phone] before 8pm Mon-Fri with problems, questions or concerns. If you call after 8pm or on weekends, call the Hospital at [phone] and ask to speak to the [employer] title one kindergarten teacher and the coke crusher operator will contact that person for you. When should you call for help? Call [phone] anytime you think you may need emergency care. For example, call if: ?? You passed out (lost consciousness). ?? You pass maroon or bloody stools. ?? You have trouble breathing. Call your doctor now or seek immediate medical care if: ?? You have pain that does not get better after you take pain medicine. ?? You are sick to your stomach or cannot drink fluids. ?? You have new or worse belly pain. ?? You have blood in your stools. ?? You have a fever. ?? You cannot pass stools or gas. Watch closely for changes in your health, and be sure to contact your doctor if you have any problems. Where can you learn more? [facility] View your After Visit Summary and more online at [email or web address] If you would like to provide feedback about your hospital experience, please call the Office of Patient and Family Relations at . If you have received this After Visit Summary in error, please immediately return it in person to the department, or notify the [facility] Privacy Office by calling toll free at between the hours of 8AM and 5PM to arrange for our retrieval of the documents at no cost to you. Content Version: 12.2 ?? 2842-4741 [employer]. Care instructions adapted under license by [facility]. If you have questions about a medical condition or this instruction, always ask your healthcare professional. [employer] disclaims any warranty or liability for your use of this information. Patient InstructionsGoRc galan MD - 05/07/2020 12:03 PM EST Please see Recommendations in the Provation procedure report which is documented in the procedural note in [facility]. documented in this encounter Medications at Time of Discharge Medication Sig Dispensed Refills Start Date End Date levothyroxine (SYNTHROID) Take 88 mcg by 0 88 mcg Tablet mouth daily. omeprazole (PRILOSEC) 20 Take 20 mg by mouth 0 mg Capsule, Delayed daily. Release(E.C.) ibuprofen (ADVIL;MOTRIN) Take 200 mg by 0 03/13/2021 200 mg Tablet mouth every 6 hours as needed for Pain. oxyCODONE (ROXICODONE) 5 Take 1 tablet by 30 tablet 0 10/2803/13/2021 mg Tablet mouth every 4 hours as needed for Pain. documented as of this encounter H&P Notes Rc Carrasquillo MD - 05/07/2020 10:26 AM EST Gastroenterology and Hepatology Pre-Procedure History and Physical Exam Procedure: EGD: Colonoscopy: Indication: Reflux symptoms and globus sensation. Polyp and hemorrhoids. EXAM: HEENT: Airway examined, oropharynx clear Mallampati Score: 2 LUNGS: Clear to auscultation HEART: Regular rate and rhythm, normal S1, S2 ABDOMEN: Normal bowel sounds, soft, non tender, non distended, A/P Proceed with the planned endoscopic procedure. ASA 1 - Normal health patient Sedation Plan: moderate (conscious sedation) Risks and benefits of the procedure explained to the patient. Consent signed. documented in this encounter Miscellaneous Notes Op Note - Rc Carrasquillo MD - 05/07/2020 10:49 AM EST [facility] [place] [place] Operative Note Patient Name: Zander Waldron : [id number] MR#: [id number] Case Date: 05/07/2020 Surgeon: Surgeon(s) and Role: * Rc Carrasquillo MD - Primary Preoperative diagnosis: Diverticulosis of intestine, part unspecified, without perforation or abscess without bleeding Diverticulosis and Gastro-esophageal reflux disease without esophagitis Postoperative diagnosis: * No post-op diagnosis entered * Procedure(s) (LRB): EGD, UPPER GI ENDOSCOPY (N/A) COLONOSCOPY, POLYPECTOMY, REMOVAL LESION BY SNARE (WRVU 4.67) (N/A) COLONOSCOPY FLEXIBLE, WITH BX (WRVU 3.66) (N/A) COLONOSCOPY WITH DIRECTED SUBMUCOSAL INJ (WRVU 3.66) (N/A) Full procedure note is documented under the Procedure section of [facility]. documented in this encounter Plan of Treatment Not on filedocumented as of this encounter Procedures Procedure Name Priority Date/Time Associated Diagnosis Comme nts SPECIMEN TO Routine 05/07/2020 11:54 Results for this PATHOLOGY AM EST procedure are i n the results section. SPECIMEN TO Routine 05/07/2020 11:54 Results for this PATHOLOGY AM EST procedure are i n the results section. SPECIMEN TO Routine 05/07/2020 11:54 Results for this PATHOLOGY AM EST procedure are i n the results section. COLONOSCOPY WITH 05/07/2020 10:38 Diverticulosis of DIRECTED SUBMUCOSAL AM EST intestine, part INJ (WRVU 3.66) unspecified, without perforation or abscess without bleeding Diverticulosis and Gastro-esophageal reflux disease without esophagitis COLONOSCOPY 05/07/2020 10:38 Diverticulosis of FLEXIBLE, WITH BX AM EST intestine, part (WRVU 3.66) unspecified, without perforation or abscess without bleeding Diverticulosis and Gastro-esophageal reflux disease without esophagitis COLONOSCOPY, 05/07/2020 10:38 Diverticulosis of POLYPECTOMY, REMOVAL AM EST intestine, part LESION BY SNARE unspecified, without (WRVU 4.67) perforation or abscess without bleeding Diverticulosis and Gastro-esophageal reflux disease without esophagitis EGD, UPPER GI 05/07/2020 10:38 Diverticulosis of ENDOSCOPY AM EST intestine, part unspecified, without perforation or abscess without bleeding Diverticulosis and Gastro-esophageal reflux disease without esophagitis COLONOSCOPY Routine 05/07/2020 9:25 Results for this AM EST procedure are i n the results section. UPPER GI ENDOSCOPY Routine 05/07/2020 9:24 Result s for this AM EST procedure are i n the results section. SURGICAL PATHOLOGY Routine 05/07/2020 1:00 Result s for this REPORT AM EST procedure are i n the results section. documented in this encounter Results Specimen to Pathology (05/07/2020 11:54 AM EST) Specimen Anatomical Collection Method Collection Time Receive d Time (Source) Location / / Volume Laterality AP Specimen 05/07/2020 11:54 05/07/2020 AM EST 11:54 AM EST Narrative [facility] - 05/07/2020 11:54 AM EST Specimen requisition ordered. ??Separate Pathology report to follow Rc Carrasquillo MD PATHOLOGY/CYTOLOGY ORDERABLE S Performing Organization Address City/State/[place] [address] Specimen to Pathology (05/07/2020 11:54 AM EST) Specimen Anatomical Collection Method Collection Time Receive d Time (Source) Location / / Volume Laterality AP Specimen 05/07/2020 11:54 05/07/2020 AM EST 11:54 AM EST Narrative [facility] [place] 05/07/2020 11:54 AM EST Specimen requisition ordered. ??Separate Pathology report to follow Rc Carrasquillo MD PATHOLOGY/CYTOLOGY ORDERABLE S Performing Organization Address City/State/[place] [address] Specimen to Pathology (05/07/2020 11:54 AM EST) Specimen Anatomical Collection Method Collection Time Receive d Time (Source) Location / / Volume Laterality AP Specimen 05/07/2020 11:54 05/07/2020 AM EST 11:54 AM EST Narrative [facility] - 05/07/2020 11:54 AM EST Specimen requisition ordered. ??Separate Pathology report to follow Rc Carrasquillo MD PATHOLOGY/CYTOLOGY ORDERABLE S Performing Organization Address City/[facility] [place] [address] COLONOSCOPY (05/07/2020 9:25 AM EST) [facility] Method Time Signature COLONOSCOPY [facility] Endoscopy Procedure Date: 05/07/2020 9:25 AM ? Patient Name: Zander Waldron ? N: [id number] ? Date of : 1960 ? Age: 59 ? Order #: [id number] ? Instrument Name: [id number] ? Procedure: ? Colonoscopy Indications: ? High risk colon cancer surveillance : ? Personal history of colonic p olyps, ? Incidental - Hematochezia Providers: ? Rc Carrasquillo MD, Elham Weinberg ? Dilip Huitron MD: ?Brooks Duarte MD, Jewels Braswell ? MD Rock Medicines: ? Midazolam 2 mg IV, Fentanyl 100 ? micrograms IV Complications: ? No immediate complications. Procedure: ? Pre-Anesthesia Assessment: ? - Prior to the procedure, a H istory ? and Physical was performed, a nd ? patient medications, allergie s and ? sensitivities were reviewed. The ? patient's tolerance of previo us ? anesthesia was reviewed. ? - The risks and benefits of t he ? procedure and the sedation op tions ? and risks were discussed with the ? patient. All questions were a nswered ? and informed consent was obta ined. ? - ASA Grade Assessment: I - A normal, ? healthy patient. ? The procedure, indications, b enefits, ? risks and alternatives were e xplained ? to the patient. Specifically ? discussed were potential ? complications including, but not ? limited to, bleeding, perfora tion, ? infection, missing a cancer, and ? adverse medication reactions. The ? patient was placed in the lef t ? lateral decubitus position, a nd a ? digital rectal exam was perfo rmed. ? The Colonoscope was inserted in the ? anus and under direct visuali zation, ? advanced to the terminal ileu m. ? Careful inspection was made a s the ? colonoscope was withdrawn. Th e ? patient tolerated the procedu re well. ? The quality of the bowel prep aration ? was excellent. The quality of the ? bowel preparation was evaluat ed using ? the BBPS ([place] Bowel Prepar ation ? Scale) with scores of: Right Colon = ? 3, Transverse Colon = 3 and L eft ? Colon = 3 (entire mucosa seen well ? with no residual staining, sm all ? fragments of stool or opaque liquid). ? The total BBPS score equals 9 . The ? total duration of the procedu re was ? 40 minutes. ? Findings: ? The perianal and digital rectal examinations were ? normal. ? The terminal ileum appeared normal. ? A few diverticula were found in the proximal sigmoid ? colon. ? A 6 mm polyp was found in the sigmoid colon within a ? small diverticulum. The polyp was sessile. The polyp ? was removed with a cold snare but there appeared to ? be residual polyp within the diverticulum which was ? removed with a piecemeal technique using a cold ? forceps. Resection and retrieval were complete. Area ? was tattooed with an injection of 2 mL of Spot ? (carbon black)-1 ml proximal and 1 ml distal to the ? site. ? A 12 mm polyp was found in the distal rectum at scar ? from prior surgical polypectomy. The polyp was ? sessile. The polyp was removed with a hot snare in ? two pieces. Resection was complete, and retrieval was ? complete. The edge of the resection site was then ? treated with Soft coag current (80w, effect 5) using ? the snare tip. ? Moderate Sedation: ? I was present during the intraservice time as ? documented by the sedation RN. Impression: ?- The examined portion of the ileu m ? was normal. ? - Diverticulosis in the proxi mal ? sigmoid colon. ? - 6 mm polyp was found in the sigmoid ? colon within a small divertic ulum. ? Resected piecemeal with cold snare ? followed by forceps. Tattooed . ? - One recurrent 12 mm polyp i n the ? distal rectum at scar from pr ior ? surgical polypectomy, removed with a ? hot snare as above. Recommendation: ?- Await pathology results. ? - Repeat colonoscopy in 1 nancy martin for ? surveillance pending patholog y. ? Attending Participation: ? I personally performed the entire procedure. ? Rc Carrasquilol MD 05/07/2020 12:17:44 PM This report has been signed electronically. Number of Addenda: 0 Note Initiated On: 05/07/2020 9:25 AM Specimen (Source) Anatomical Collection Method Collection Time Re ceived Time Location / / Volume Laterality 05/07/2020 9:25 AM EST Jewels Wilkerson MD GENERAL SURGICAL ORDERABLES Performing Organization Address City/State/ZIP Code Phon e Number PROVATION UPPER GI ENDOSCOPY (05/07/2020 9:24 AM EST) Component Value Ref Test Analysis Performed At [facility] Range Method Time Signature UPPER GI [facility]ATION ENDOSCOPY Endoscopy Procedure Date: 05/07/2020 9:24 AM ? Patient Name: Zander Waldron ? N: [id number] ? Date of : 1960 ? Age: 59 ? Order #: [id number] ? Instrument Name: [id number] ? Procedure: ? Upper GI endoscopy Indications: ? Suspected esophageal reflux, Globus ? sensation Providers: ? Rc Carrasquillo MD, Elham Weinberg ? Dilip Huitron MD: ?Brooks Duarte MD Medicines: ? Midazolam 4 mg IV, Fentanyl 150 ? micrograms IV Complications: ? No immediate complications. Procedure: ? Pre-Anesthesia Assessment: ? - Prior to the procedure, a H istory ? and Physical was performed, a nd ? patient medications, allergie s and ? sensitivities were reviewed. The ? patient's tolerance of previo us ? anesthesia was reviewed. ? - The risks and benefits of t he ? procedure and the sedation op tions ? and risks were discussed with the ? patient. All questions were a nswered ? and informed consent was obta ined. ? - ASA Grade Assessment: I - A normal, ? healthy patient. ? The procedure, indications, b enefits, ? risks and alternatives were e xplained ? to the patient. Specifically ? discussed were potential ? complications including, but not ? limited to, bleeding, perfora tion, ? infection, missing a cancer, and ? adverse medication reactions. The ? Endoscope was introduced thro ugh the ? mouth, and advanced to the se cond ? part of duodenum. The patient ? tolerated the procedure well. The ? patient tolerated the procedu re well. ? Findings: ? The Z-line was found 37 cm from the incisors. ? A non-obstructing Schatzki ring was found at the ? gastroesophageal junction. ? A 3 cm hiatal hernia was present. ? Otherwise normal stomach including retroflex view of ? cardia and fundus. ? The examined duodenum was normal. ? Moderate Sedation: ? I was present during the intraservice time as ? documented by the sedation RN. Impression: ?- Non-obstructing Schatzki ring. ? - 3 cm hiatal hernia. ? - Normal examined duodenum. ? - No specimens collected. Recommendation: ?- Observe patient's clinical course. ? - Reassurance. ? - May use acid camelia as nee ded for ? reflux symptoms. ? Attending Participation: ? I personally performed the entire procedure. ? Rc Carrasquillo MD 05/07/2020 10:57:03 AM This report has been signed electronically. Number of Addenda: 0 Note Initiated On: 05/07/2020 9:24 AM Specimen (Source) Anatomical Collection Method Collection Time Re ceived Time Location / / Volume Laterality 05/07/2020 9:24 AM EST Brooks Duarte MD GENERAL SURGICAL ORDERABLES Performing Organization Address City/State/ZIP Code Phon e Number [facility] Surgical Pathology Report (05/07/2020 1:00 AM EST) Component Value Ref Test Analysis Performed At [facility] gist Range Method Time Signature Surgical [id number] ? Location: 4T; EA07; A [facility] Pathology CHANG Report The signing pathologist has (i) examined the relevant preparation(s) for the [facility] specimen(s) and (ii) rendered or confirmed the diagnosis(es) . [facility] . ?Surgic al Pathology DIAGNOSIS A - Sigmoid colon, ??polypectomy: - ??Inflammatory polyp. B - Area in diverticula, ?? biopsy: - ??Fragments of hyperplastic polyp. - Fragments of colonic mucosa, negative for diagnostic abnor mality. C - Rectum, ??polypectomy: - ??Fragments of traditional serrated adenoma. [id number] Electronically signed by: ??Emeka Neri MD Verified: ??05/10/2020 ?Pathologist Performed at: ??-[facility] [place], [place] Dept. of Pathology, [place], [place] SPECIMEN(S) SUBMITTED A - sigmoid colon polyp (45-50cm) within ?diverticula, e xcision (1) B - area in diverticula (that polyp was removed), biopsy (Mu ltiple) C - Rectal polyps, excision (2) CLINICAL INFORMATION 59-year-old M, history of polyps SPECIMEN PROCESSING A - Labeled/Fixative: Sigmoi d colon polyp (45-50 cm) within diverticula, formalin. Quantity/Size: Three, 0.3-0.5 cm. Tissue Description: Soft, child-pink tissues. Sections/Processing: Submitted en toto ??in 1 cassette labeled A1. B - Labeled/Fixative: Area in diverticula (that polyp was removed), formalin. Quantity/Size: Multiple, 0.1-0.2 cm. Tissue Description: Soft, child-pink tissues. Sections/Processing: Submitted en toto ??in 3 cassettes labeled B1-B3. C - Labeled/Fixative: Rectal polyps, formalin. Quantity/Size: ??Three, 0.2-1.1 cm. Tissue Description: Soft brown-pink polypoid tissue fragment s. Sections/Processing: Entirely submitted in 2 cassettes as follows: ?C1: ??Intact fragments ?C2: ??Largest fragment, inked and trisected ??arabella Specimen (Source) Anatomical Collection Method Collection Time Re ceived Time Location / / Volume Laterality 05/07/2020 1:00 AM EST Rc Carrasquillo MD PATHOLOGY/CYTOLOGY ORDERABLE S Performing Organization Address City/State/[place] [address] documented in this encounter Visit Diagnoses Not on filedocumented in this encounter Administered Medications Inactive Administered Medications - up to 3 most recent administrations Medication Order MAR Action Action Date Dose Rate Site benzocaine (Hurricane One) Given 05/07/2020 10:45 AM EST 1 spray Mucosal spray 20% (restricted to mikel-procedural use) ONCE PRN, Starting on Thu05/07/20 at 1045, Until Thu05/07/20 at 1443, Intra-Operative (Intra-Procedure) fentaNYL (pf) (50 mcg/mL) multi-dose Given 05/07/2020 11:[address] 50 mcg injection ONCE PRN, Starting on Thu05/07/20 at 1041, Until Thu05/07/20 at 1443, Intra-Operative (Intra-Procedure), Routine Given 05/07/2020 11:03 AM EST 50 mcg Given 05/07/2020 10:48 AM EST 50 mcg lactated ringers infusion New Bag 05/07/2020 9:59 AM EST 100 mL/hr 100 mL/hr 100 mL/hr, Intravenous, CONTINUOUS, Starting on Thu05/07/20 at 1015, Until Thu05/07/20 at 1233, Endoscopy (Day of Procedure) midazolam (pf) (Versed) (1 mg/mL) multi-dose Given 11:31 AM EST 1 mg injection ONCE PRN, Starting on Thu05/07/20 at 1041, Until Thu05/07/20 at 1443, Intra-Operative (Intra-Procedure), Routine Given 05/07/2020 11:03 AM EST 1 mg Given 05/07/2020 10:48 AM EST 1 mg documented in this encounter Active and Recently Administered Medications Times are shown in EST. Continuous Medication Order 05/05/2020 05/06/2020 05/07/2020 lactated ringers infusion (CANCELED) 0959 (New Bag - Provider: Nataliya Morse RN) 100 mL/hr, at 100 mL/hr, Intravenous, CO NTINUOUS, Starting Thu05/07/20 at 1015, Until Thu05/07/20 at 1233, Endo (Day of Procedure) PRN Medication Order 05/05/2020 05/06/2020 05/07/2020 benzocaine (Hurricane One) Mucosal spray 20% (restricted to mikel-procedural use) (CANCELED) 1045 (Given - Provid er: Elham Huitron RN) ONCE PRN, Starting 05/07/20 at 1045, U ntil 05/07/20 at 1443, Intra-Operative (Intra-Procedure) fentaNYL (pf) (50 mcg/mL) multi-dose injection (CANCELED) 1041 (Given - Provider: Elham Huitron RN)1045 (Given - Provider: Elham Huitron RN)1048 (Given - Provider: Elham Huitron RN)1103 (Given - Provider: Elham Huitron, RN)1132 (Given - Provider: Elham Huitron RN) ONCE PRN, Starting Thu05/07/20 at 1041, U ntil 05/07/20 at 1443, Intra-Operative (Intra-Procedure), Routine midazolam (pf) (Versed) (1 mg/mL) multi-dose injection (CANCELED ) 1041 (Given - Provider: Elham Huitron RN)1045 (Given - Provider: Elham Huitron RN)1048 (Given - Provider: Elham Huitron RN)1103 (Given - Provider: Elham Huitron, RN)1131 (Given - Provider: Elham Huitron, RN) ONCE PRN, Starting Thu05/07/20 at 1041, U ntil 05/07/20 at 1443, Intra-Operative (Intra-Procedure), Routine documented in this encounter Care Teams Machine Molder Relationship Specialty Start Date End Date Brooks Duarte MD PCP - General Family Medicine 05/07/20 03/11/21 [address] [place] [address] documented as of this encounter
--- OUTSIDE RECORDS SUMMARY | 2022-01-27 16:06 | XMS_ITS | Encounter Summary ---
:1960 Author Organization [facility] [address] Care Team Providers Name Role Phone Unavailable Primary Care Provider Unavailable Encounter Details Date Type Department Care Team Description 11/24/2016 Office Visit General Surgery at [facility] [place]oids[place] [facility] [place] [facility] [place] [facility] [place] [phone] Social History Tobacco Use Types Packs/Day Years Used Date Smoking Tobacco: Former Smokeless Tobacco: Never Sex Assigned at Date Recorded Not on file documented as of this encounter Last Filed Vital Signs Vital Sign Reading Time Taken Comments Blood Pressure 122/77 11/24/2016 9:37 AM EDT Pulse 76 11/24/2016 9:37 AM EDT Temperature 36.6 ??C (97.9 ??F) 11/24/2016 9:37 AM EDT Respiratory Rate 12 11/24/2016 9:37 AM EDT Oxygen Saturation 100% 11/24/2016 9:37 AM EDT Inhaled Oxygen Concentration - - Weight 96.5 kg (212 lb 12.8 oz) 11/24/2016 9:37 AM EDT Height 177.8 cm (5' 10) 11/24/2016 9:37 AM EDT Body Mass Index 30.53 11/24/2016 9:37 AM EDT documented in this encounter Progress Notes Matt Sullivan MD - 11/24/2016 9:30 AM EDT Patient returns for follow up after hemorrhoidectomy. At this point, the patient reports no pain or drainage from the wounds. He did have a polyp at the same time which was excised and was a serrated adenoma. A/P s/p hemorrhoidectomy and polypectomy. I advised the patient to follow up with his primary care doctor to seek a colonoscopy. He had one when he turned [age], and based on the pathology of the polyphe definitely needs the rest of his colon evaluated and he???ll follow up as necessary in the future. documented in this encounter Plan of Treatment Not on filedocumented as of this encounter Visit Diagnoses Diagnosis Grade II hemorrhoids Unspecified hemorrhoids with other compl ication Rectal polyp Anal and rectal polyp documented in this encounter
--- OUTSIDE RECORDS SUMMARY | 2022-01-27 16:06 | XMS_ITS | Encounter Summary ---
:1960 Author Organization [facility] [place] [address] Care Team Providers Name Role Phone Brooks Duarte MD Primary Care Provider [phone] Encounter Details Date Type Department Care Team Description 03/07/2021 Telephone Gastroenterology at [facility] [place] [phone] Social History Tobacco Use Types Packs/Day Years Used Date Smoking Tobacco: Former Smokeless Tobacco: Never Alcohol Use Standard Drinks/Week Comments Yes 0 (1 standard drink = 0.6 oz pure alcoho l) about once a month Sex Assigned at Date Recorded Not on file documented as of this encounter Miscellaneous Notes Telephone Encounter - Sonia Medel - 03/07/2021 11:14 AM EST Detailed message left on patients mobile # with time change for procedure 03/11. Attempted home # disconnected after a few rings. documented in this encounter Plan of Treatment Not on filedocumented as of this encounter Visit Diagnoses Not on filedocumented in this encounter Care Teams Director Of Patient Financial Services Relationship Specialty Start Date End Date Brooks Duarte MD PCP - General Family Medicine 05/07/20 03/11/21 [address] [place] [address] documented as of this encounter
--- OUTSIDE RECORDS SUMMARY | 2022-01-27 16:06 | XMS_ITS | Encounter Summary ---
:1960 Author Organization [facility] [place] [address] Care Team Providers Name Role Phone Unavailable Primary Care Provider Unavailable Reason for Visit Auth/Cert Specialty Diagnoses / Procedures Referred By Contact Refer red To Contact Diagnoses S/P HEMORRHOIDECTOMY/ POLYPECTOMY W DR LEMA- SCREENING Procedures PRO COLONOSCOPY, DIAGNOSTIC COLONOSCOPY, DIAGNOSTIC Referral ID Status Reason Start Date Expiration Date Visits Requ ested Visits Authorized [id number] 1 1 Encounter Details Date Type Department Care Team Description 12/11/2016 Hospital Encounter Gastroenterology at [facility] Jewels Wilkerson, [facility] [place] [address] [facility] [phone] [facility] [place], [place] [address] Social History Tobacco Use Types Packs/Day Years Used Date Smoking Tobacco: Former Smokeless Tobacco: Never Alcohol Use Standard Drinks/Week Comments Yes 0 (1 standard drink = 0.6 oz pure alcoho l) rarely Sex Assigned at Date Recorded Not on file documented as of this encounter Last Filed Vital Signs Vital Sign Reading Time Taken Comments Blood Pressure 115/78 12/11/2016 10:38 AM EDT Pulse 63 12/11/2016 10:25 AM EDT Temperature - - Respiratory Rate 20 12/11/2016 10:57 AM EDT Oxygen Saturation 99% 12/11/2016 10:25 AM EDT Inhaled Oxygen Concentration - - Weight - - Height - - Body Mass Index - - documented in this encounter Discharge Instructions Discharge InstructionsBre Ansari RN - 12/11/2016 10:40 AM EDT Colonoscopy and polyp removal What to expect after the procedure You may feel a little more gassy or bloated than usual, this is normal. You should expect the return of normal bowel function in the next 2 to 3 days. Because some polyps were removed, you may see a little blood with the next few bowel movements, this should be a small amount ( less than a few tablespoons) and will resolve on it's own. ACTIVITY Because of the sedation that you received Your judgement and reaction time are effected ?? Go home and rest for the remainder for the day. You may resume your normal activities tomorrow ?? Change from one position to the next slowly because you may lose your balance unexpectedly. ?? Be careful on stairs, as you may be unsteady. ?? Avoid strenuous activity for 48 to 72 hrs FOR THE NEXT 24 HRS ?? DO NOT DRIVE OR OPERATE MACHINERY ?? DO NOT DRINK ALCOHOLIC BEVERAGES ?? DO NOT SIGN LEGAL DOCUMENTS ?? If you are a smoker: DO NOT SMOKE WHILE YOU ARE ALONE Diet ?? Start by eating small portions of foods that ordinarily will not upset your stomach, avoid gas producing foods for the next few days. ?? Be gentle with what you choose to start with ?? Drink plenty of fluids ( unless your doctor has told you not to). ?? A soft diet may be helpful for the next 3 days as this may help to keep the stools soft Medicines Avoid medicines that influence the way your blood clots for the next week. These would include anti-inflammatory medicine, such as ibuprofen( Advil, Motrin) and naproxen ( Aleve). If you need something for discomfort, Tylenol (Acetaminophen) is safe if used as directed. Your Doctor will tell you whento restart your prescribed blood thinners The IV site-- slight tenderness, or redness is normal, you can use warm compresses if you get concerned. If the tenderness +/or redness increases or foul drainage and a red streak occurs, please contact your PCP immediately. When should you call for help? Call 911 anytime you think you may need emergency care. For example If you pass out (loss of consciousness) If you pass maroon or bloody stools If you have severe belly pain Call your healthcare provider or seek immediate medical care if: Your stools are black or tar like Your stools have streaks of blood that is more pronounced with each BM You have belly pain, or your belly is swollen and firm You vomit You have a fever You are very dizzy Watch closely for changes in your health, and be sure to contact your doctor if you have any problems. Your Doctor will let you know when you will need your next colonoscopy. The results of your test andyour risk for colorectal cancer will help your doctor decide how often you need to be checked. Thursday-Thursday Same Day Endo [phone] 7a-8p Otherwise contact [phone] and ask to speak to the staffing program manager medtronics technician Follow up care is a hooker part of your treatment and safety. Be sure to make and go to all appointments, and call your doctor if you are having problems. Discharge instructions reviewed with patient who expresses understanding documented in this encounter Medications at Time [...] documented as of this encounter Progress Notes Walter Hassan RN - 12/11/2016 9:32 AM EDT encouraged pt to take deep breath which he did documented in this encounter H&P Notes Jewels Wilkerson MD - 12/11/2016 9:09 AM EDT Patient Name: Zander Waldron Patient Age: 56 y.o. Birthdate: 1960 Admit date: 12/11/2016 Attending Physician: Jewels Wilkerson MD Complete Adult Pre-Procedural H&P Patient Name: Zander Waldron : [id number] 56 y.o. MR#: [id number] Chief Complaint: History of polyp - serrated adenoma on anoscopy during hemorrhoidectomy Planned Procedure: colonoscopy with interventsion History of Present Illness: HPI Comments: Last colo 2012 - had hemorrhoidectomy with Dr. Lema who found a distal rectal polyp at time of surgery. Removed - path shows sessile serrated adenoma. No bleeding, no abdominal pain,. I have reviewed and updated as necessary the Medical, Surgical, Family, and Social History captured within the EMR. I have reviewed and updated as necessary the patient's allergies and current medication list within the EMR. Review of Systems: Review of Systems Constitutional: Negative for activity change, chills and fever. HENT: Negative for congestion. Gastrointestinal: Negative for blood in stool and constipation. Physical Exam: Vitals: 12/11/16 0819 BP: 127/87 Pulse: 68 Resp: 16 SpO2: 99% Physical Exam Constitutional: He is oriented to person, place, and time. He appears well- developed and well-nourished. HENT: Head: Normocephalic and atraumatic. Mallampati I Eyes: Conjunctivae are normal. Pupils are equal, round, and reactive to light. Neck: Normal range of motion. Neck supple. Cardiovascular: Normal rate and regular rhythm. Pulmonary/Chest: Effort normal. Abdominal: Soft. There is no tenderness. Musculoskeletal: Normal range of motion. Neurological: He is alert and oriented to person, place, and time. Normal neck range of motion. Skin: Skin is warm and dry. Psychiatric: He has a normal mood and affect. Thought content normal. Assessment and Plan: Surveillance colonoscopy with interventions after finding of serrated adenoma at hemorroidectomy. ASA2 Jewels Wilkerson MD 12/11/2016 documented in this encounter Plan of Treatment Not on filedocumented as of this encounter Procedures Procedure Name Priority Date/Time Associated Diagnosis Comme nts SURGICAL PATHOLOGY Routine 12/11/2016 10:27 Resul ts for this REPORT AM EDT procedure are i n the results section. SPECIMEN TO Routine 12/11/2016 10:27 Results for this PATHOLOGY AM EDT procedure are i n the results section. SPECIMEN TO Routine 12/11/2016 10:27 Results for this PATHOLOGY AM EDT procedure are i n the results section. COLONOSCOPY, 12/11/2016 9:09 AM SCREENING- S/P POLYPECTOMY, REMOVAL EDT HEMORRHOIDECTOMY/ LESION BY SNARE POLYPECTOMY W (WRVU 4.67) TOREY 10/28/16- COLONOSCOPY Routine 12/11/2016 8:24 AM Results f or this EDT procedure are i n the results section. documented in this encounter Results Surgical Pathology Report (12/11/2016 10:27 AM EDT) Component Value Ref Test Analysis Performed At [facility] Method Time Signature Surgical [id number] ? Location: 4; [facility]; [facility] Pathology [place] Report The signing pathologist has (i) examined the relevant preparation(s) for the [facility] specimen(s) and (ii) rendered or confirmed the diagnosis(es) . HOSPITAL LABORATORY . ?Surgic al Pathology DIAGNOSIS A - Transverse colon, ?? polypectomy: Sessile serrated adenoma/polyp. B - Distal rectum, ??polypectomy: Ulcer bed/previous biopsy site with benign regenerative rect al epithelium. No adenomatous change is seen. CR-PX Electronically signed by: ??Ryland Lindsay MD Verified: ??12/15/2016 ?Pathologist Performed at: ??-[facility] Dept. of Pathology, [place], [place] CLINICAL INFORMATION Specimen Submitted: A - Transverse colon polyps x 2 B - Distal rectal polyp Clinical History: 56-year-old male with history of sessile serrated adenoma po lyp Clinical Diagnosis: Same SPECIMEN PROCESSING A - Labeled/Fixative: Transverse colon polyps x2, formalin. Quantity/Size: Nine, 0.1-0.6 cm. Tissue Description: Soft child tissue. Sections/Processing: (T2) B - Labeled/Fixative: Distal rectal polyp, formalin. Quantity/Size: Single, 0.3 cm. Tissue Description: Soft child tissue with colonic debris. Sections/Processing: (T1) ??arabella Specimen (Source) Anatomical Collection Method Collection Time Re ceived Time Location / / Volume Laterality 12/11/2016 10:27 AM EDT Jewels Wilkerson MD PATHOLOGY/CYTOLOGY ORDERABLE S Performing Organization Address City/State/ZIP Code Phon e Number [address] Specimen to Pathology (surgical or derm) (12/11/2016 10:27 AM EDT) Specimen Anatomical Collection Method Collection Time Receive d Time (Source) Location / / Volume Laterality AP Specimen 12/11/2016 10:27 12/11/2016 AM EDT 10:27 AM EDT Narrative [facility] - 12/11/2016 10:27 AM EDT Specimen requisition ordered. ??Separate Pathology report to follow Jewels Wilkerson MD PATHOLOGY/CYTOLOGY ORDERABLE S Performing Organization Address City/[facility]/ZIP Code Phon e Number [address] Specimen to Pathology (surgical or derm) (12/11/2016 10:27 AM EDT) Specimen Anatomical Collection Method Collection Time Receive d Time (Source) Location / / Volume Laterality AP Specimen 12/11/2016 10:27 12/11/2016 AM EDT 10:27 AM EDT Narrative [facility] - 12/11/2016 10:27 AM EDT Specimen requisition ordered. ??Separate Pathology report to follow Jewels Wilkerson MD PATHOLOGY/CYTOLOGY ORDERABLE S Performing Organization Address City/[facility]/[place] [address] COLONOSCOPY (12/11/2016 8:24 AM EDT) [facility] Method Time Signature COLONOSCOPY [facility] Endoscopy Procedure Date: 12/11/2016 8:24 AM ? Patient Name: Zander Waldron ? Date of : 1960 ? Age: 56 ? Order #: [id number] ? Instrument Name: - [id number] ? Procedure: ? Colonoscopy Indications: ? High risk colon cancer surveillance : ? Personal history of colonic p olyps Providers: ? Jewels Wilkerson MD, Walter estrada, ? RN, Sherry Cabral Referring MD: ?Noman Ramírez MD Medicines: ? Fentanyl 200 micrograms IV, Midazo montgomery ? 4 mg IV Complications: ? No immediate complications. Procedure: ? Pre-Anesthesia Assessment: ? - Prior to the procedure, a H istory ? and Physical was performed, a nd ? patient medications and aller gies ? were reviewed. The patient is ? competent. The risks and bene fits of ? the procedure and the sedatio n ? options and risks were discus sed with ? the patient. All questions we re ? answered and informed consent was ? obtained. Patient identificat ion and ? proposed procedure were verif ied by ? the physician, the nurse and the ? generator technician in the endoscopy s uite. ? Mental Status Examination: al ert and ? oriented. Airway Examination: normal ? oropharyngeal airway and neck ? mobility. Respiratory Examina tion: ? clear to auscultation. CV ? Examination: normal. Prophyla ctic ? Antibiotics: The patient does not ? require prophylactic antibiot ics. ? Prior Anticoagulants: The pat ient has ? taken no previous anticoagula nt or ? antiplatelet agents. ASA Grad e ? Assessment: II - A patient wi th mild ? systemic disease. After revie wing the ? risks and benefits, the patie nt was ? deemed in satisfactory condit ion to ? undergo the procedure. The an esthesia ? plan was to use moderate sruthi tion / ? analgesia (conscious sedation ). ? Immediately prior to administ ration ? of medications, the patient w as ? re-assessed for adequacy to r eceive ? sedatives. The heart rate, ? respiratory rate, oxygen satu rations, ? blood pressure, adequacy of p ulmonary ? ventilation, and response to care ? were monitored throughout the ? procedure. The physical statu s of the ? patient was re-assessed after the ? procedure. ? The procedure, indications, b enefits, ? [...] zation, ? advanced to the terminal ileu m, with ? identification of the appendi ceal ? orifice and IC valve. Careful ? inspection was made as the ? colonoscope was withdrawn. Th e ? colonoscopy was performed wit marleny ? difficulty. The patient cirilo ated the ? procedure well. The quality o f the ? bowel preparation was good. ? Findings: ? The perianal and digital rectal examinations were ? normal. ? A few small-mouthed diverticula were found in the ? sigmoid colon. ? A 3mm and a 5 mm polyp was found in the transverse ? colon. The both polyps were sessile. The polyp ? smaller polyp was removed with cold biopsy forceps. ? The larger polyp was removed with a hot snare. ? Resection and retrieval were complete. ? A scar was noted in the distal rectum during ? retroflexion. This is consistent with known history ? of transanal excision of a serrated adenoma. This was ? biopsied with a hot snare. ? Verification of patient identification for the ? specimen was done. Estimated blood loss was minimal. ? Moderate Sedation: ? Moderate (conscious) sedation was administered by the ? endoscopy nurse and supervised by the endoscopist. ? The following parameters were monitored: oxygen ? saturation, heart rate, blood pressure, and response ? to care. Total physician intraservice time was per ? endoscopy nurse charting. Impression: ?- Diverticulosis in the sigmoid co asmita. ? - 3mm, 5mm polyps in the brown sverse ? colon - biopsied ? Scar noted in distal rectum - biopsied Recommendation: ?- Repeat colonoscopy in 5 years for ? surveillance. ? - Return to primary care phys ician as ? previously scheduled. ? - Continue present medication s. ? - Await pathology results. ? Procedure Code(s): ?? --- Professional --- ? 36737, Colonoscopy, flexible; with ? removal of tumor(s), polyp(s) , or ? other lesion(s) by snare tech nique CPT copyright 2016 [employer]. All rights reserved. The codes documented in this report are preliminary and upon agent ticketing gate review may be revised to meet current compliance requirements. Attending Participation: ? I was present and participated during the entire ? procedure, including non-hooker portions. ? Jewels Wilkerson MD 12/11/2016 10:31:19 AM Number of Addenda: 0 Note Initiated On: 12/11/2016 8:24 AM Specimen (Source) Anatomical Collection Method Collection Time Re ceived Time Location / / Volume Laterality 12/11/2016 8:24 AM EDT Noman Ramírez MD GENERAL SURGICAL ORDERABLES Performing Organization Address City/State/ZIP Code Phon e Number [employer] documented in this encounter Visit Diagnoses Not on filedocumented in this encounter Administered Medications Inactive Administered Medications - up to 3 most recent administrations Medication Order MAR Action Action Date Dose Rate Site lactated Ringers infusion New Bag 12/11/2016 8:23 AM EDT 100 mL/hr 100 mL/hr 100 mL/hr, Intravenous, CONTINUOUS, Starting on Gisella 12/11/16 at 0845, Until Gisella 12/11/16 at 1326, Endoscopy (Day of Procedure) documented in this encounter Active and Recently Administered Medications Times are shown in EDT. Continuous Medication Order 12/09/2016 12/10/2016 12/11/2016 lactated Ringers infusion 0823 ( New Bag - Provider: Liz Faust RN) 100 mL/hr, at 100 mL/hr, Intravenous, CO NTINUOUS, Starting Gisella 12/11/16 at 0845, Until Gisella 12/11/16 at 1326, Endo (Day of Procedure) PRN Medication Order 12/09/2016 12/10/2016 12/11/2016 fentaNYL 50 mcg/mL multi-dose injection (CANCELED) 0914 (Given - Provider: Walter Hassan RN)0917 (Given - Provider: Walter Hassan RN)0920 (Given - Provider: Walter Hassan RN)0923 (Given - Provider: Walter Hassan, JOSE ELIAS) ONCE PRN, Starting Gisella 1017 at 0920, Until Gisella 12/11/16 at 1326, Intra- Operative (Intra-Procedure), Routine midazolam (PF) (VERSED) 1 mg/mL multi-dose injection (CANCELED) 0914 (Given - Provider: Walter Hassan RN)0917 (Given - Provider: Walter Hassan RN)0920 (Given - Provider: Walter Hassan RN)0923 (Given - Provider: Walter Hassan RN) ONCE PRN, Starting Gisella 1017 at 0914, Until Gisella 1017 at 1326, Intra- Operative (Intra-Procedure), Routine documented in this encounter
--- OUTSIDE RECORDS SUMMARY | 2022-01-27 16:06 | XMS_ITS | Encounter Summary ---
:1960 Author Organization [facility] Address [address] [place] [address] Care Team Providers Name Role Phone Brooks Duarte MD Primary Care Provider [phone] Encounter Details Date Type Department Care Team Description 02/21/2021 Ancillary Procedure [place] [address] Social History Tobacco Use Types Packs/Day [...] Name Priority Date/Time Associated Diagnosis Comme nts FILM LIBRARY STAT 02/21/2021 12:00 AM Results for this STORAGE ONLY CT EST procedure ar e in ABDOMEN AND PELVIS the resul ts section. documented in this encounter Results Film Library- Storage Only CT Abdomen & Pelvis (02/21/2021 12:00 AM EST) Specimen (Source) Anatomical Location Collection Method / Collectio n Time Received Time / Laterality Volume Narrative RAD - 03/12/2021 3:53 AM EST This exam is auto-finalizing. It's purpo se is for storage only. Rosmeary Wiley MD IMG FILM LIBRARY ORDERABLES Performing Organization Address City/State/ZIP Code Phon e Number [facility] [place], [place] documented in this encounter Visit Diagnoses Not on filedocumented in this encounter Care Teams Glueline Worker Relationship Specialty Start Date End Date Brooks Duarte MD PCP - General Family Medicine 05/07/20 03/11/21 [address] [place] [address] documented as of this encounter
--- OUTSIDE RECORDS SUMMARY | 2022-01-27 16:06 | XMS_ITS | Encounter Summary ---
:1960 Author Organization [facility] [place] [address] Care Team Providers Name Role Phone Unavailable Primary Care Provider Unavailable Encounter Details Date Type Department Care Team Description 04/12/2020 Telephone Gastroenterology at [facility] [place] [address] Social History Tobacco Use Types Packs/Day [...]
--- OUTSIDE RECORDS SUMMARY | 2022-01-27 16:06 | XMS_ITS | Encounter Summary ---
:1960 Author Organization [facility] [place] [address] Care Team Providers Name Role Phone Unavailable Primary Care Provider Unavailable Reason for Visit Auth/Cert Specialty Diagnoses / Procedures Referred By Contact Refer red To Contact Diagnoses S/P HEMORRHOIDECTOMY/ POLYPECTOMY W DR LEMA- SCREENING Procedures PRO COLONOSCOPY, DIAGNOSTIC COLONOSCOPY, DIAGNOSTIC Referral ID Status Reason Start Date Expiration Date Visits Requ ested Visits Authorized [id number] 1 1 Encounter Details Date Type Department Care Team Description 12/11/2016 Surgery [place] [facility] Jewels Wilkerson, COLONOSCOPY, [facility] Izzy noriega MD POLYPECTOMY, [place] [address] [facility] LESION BY SNARE ([facility] [place] [phone] DR Pemberton) GENERAL SURGERY [place], [place] [address] Social History Tobacco Use Types Packs/Day Years Used Date Smoking Tobacco: Former Smokeless Tobacco: Never Alcohol Use Standard Drinks/Week Comments Yes 0 (1 standard drink = 0.6 oz pure alcoho l) rarely Sex Assigned at Date Recorded Not on file documented as of this encounter Last Filed Vital Signs Vital Sign Reading Time Taken Comments Blood Pressure 112/70 12/11/2016 10:00 AM EDT Pulse 67 12/11/2016 10:00 AM EDT Temperature - - Respiratory Rate 16 12/11/2016 10:00 AM EDT Oxygen Saturation 96% 12/11/2016 10:00 AM EDT Inhaled Oxygen Concentration - - [...] to be checked. Thursday-Thursday Same Day Endo [phone] [id number]-[id number] Otherwise contact [phone] and ask to speak to the dental office coordinator disaster or damage control specialist Follow up care is a hooker part [...] Pre-Procedural H&P Patient Name: Zander Waldron : [id number] y.o. MR#: [id number] Chief Complaint: History of polyp - serrated [...] Value Ref Test Analysis Performed At [facility] Method Time Signature Surgical [id number] ? Location: 4T; [facility]; [facility] Report The signing pathologist has (i) examined [...] Lindsay MD Verified: ??12/15/2016 ?Pathologist Performed at: ??-[facility] Dept. [place]ology, [place], [place] CLINICAL INFORMATION Specimen Submitted: A - [...] MD PATHOLOGY/CYTOLOGY ORDERABLE S Performing Organization Address City/[facility]/ZIP Code Phon e Number [address] Specimen to Pathology (surgical or derm) (12/11/2016 10:27 AM EDT) Specimen Anatomical Collection Method Collection Time Receive d Time (Source) Location / / Volume Laterality AP Specimen 12/11/2016 10:27 12/11/2016 AM EDT 10:27 AM EDT Narrative [facility] OR - 12/11/2016 10:27 AM EDT Specimen requisition ordered. ??Separate Pathology report to follow Jewels Wilkerson MD PATHOLOGY/CYTOLOGY ORDERABLE S Performing Organization Address City/[facility]/[place] [address] Specimen to Pathology (surgical or derm) (12/11/2016 10:27 AM EDT) Specimen Anatomical Collection Method Collection Time Receive d Time (Source) Location / / Volume Laterality AP Specimen 12/11/2016 10:27 12/11/2016 AM EDT 10:27 AM EDT [facility] 10:27 AM EDT Specimen requisition ordered. ??Separate Pathology report to follow Jewels Wilkerson MD PATHOLOGY/CYTOLOGY ORDERABLE S Performing Organization Address City/[facility]/[place]IP [place] [address] COLONOSCOPY (12/11/2016 8:24 AM EDT) [facility] gist Method Time Signature COLONOSCOPY [facility] PROVATION Endoscopy Procedure Date: 12/11/2016 8:24 AM ? Patient Name: Zander Waldron ? Date of : 1960 ? Age: 56 ? Order #: [id number] ? Instrument Name: -[id number] ? Procedure: ? Colonoscopy Indications: ? High [...] the physician, the nurse and the ? systems testing laboratory technician in the endoscopy s uite. ? [...] withdrawn. Th e ? colonoscopy was performed rodney farmer ? difficulty. The patient cirilo ated the [...] Procedure Code(s): ?? --- Professional --- ? 60530, Colonoscopy, flexible; with ? removal of tumor(s), polyp(s) , or ? other lesion(s) by dwayne richardson CPT copyright 2016 [employer]. All rights reserved. The codes documented in this report are preliminary and upon editor publications review may be revised to meet current compliance requirements. Attending Participation: ? I was present and participated during the entire ? procedure, including non-hokoer portions. ? Jewels Wilkerson MD 12/11/2016 10:31:19 [...] MAR Action Action Date Dose Rate Site fentaNYL 50 mcg/mL multi-dose Given 12/11/2016 9:23 AM EDT 50 mc g injection ONCE PRN, Starting on Gisella 12/11/16 at 0920, Until Gisella 12/11/16 at 1326, Intra-Operative (Intra-Procedure), Routine Given 12/11/2016 9:20 AM EDT 50 mcg Given 12/11/2016 9:17 AM EDT 50 mcg lactated Ringers infusion New Bag 12/11/2016 8:23 AM EDT 100 mL/hr 100 mL/hr 100 mL/hr, Intravenous, CONTINUOUS, Starting on Gisella 12/11/16 at 0845, Until Gisella 12/11/16 at 1326, Endoscopy (Day of Procedure) midazolam (PF) (VERSED) 1 mg/mL multi-dose Given 12/11/2016 9:23 AM EDT 1 mg injection ONCE PRN, Starting on Gisella 12/11/16 at 0914, Until Gisella 12/11/16 at 1326, Intra-Operative (Intra-Procedure), Routine Given 12/11/2016 9:20 AM EDT 1 mg Given 12/11/2016 9:17 AM EDT 1 mg documented in this encounter Active [...] injection (CANCELED) 0914 (Given - Provider: Walter Hsasan, JOSE ELIAS)0917 (Given - Provider: Walter Hassan, RN)09 (Given - Provider: Walter Hassan, JOSE ELIAS)09 (Given - Provider: Walter Hassan, RN) ONCE PRN, Starting Gsiella 10 at 0920, Until Gisella 12/11/16 at 1326, Intra- Operative (Intra-Procedure), Routine midazolam (PF) (VERSED) 1 mg/mL multi-dose injection (CANCELED) 0914 (Given - Provider: Walter Hassan, RN)0917 (Given - Provider: Walter Hassan, JOSE ELIAS)0920 (Given - Provider: Walter Hassan RN)0923 (Given - Provider: Walter Hassan, RN) ONCE PRN, Starting Gisella 12/11/16 at 0914, Until Gisella 12/11/16 at 1326, Intra- Operative (Intra-Procedure), Routine documented in this encounter
--- OUTSIDE RECORDS SUMMARY | 2022-01-27 16:06 | XMS_ITS | Encounter Summary ---
:1960 Author Organization [facility] [place] [address] Care Team Providers Name Role Phone Unavailable Primary Care Provider Unavailable Reason for Visit Auth/Cert Specialty Diagnoses / Procedures Referred By Contact Refer red To Contact Diagnoses Second degree hemorrhoids INTERNAL HEMORRHOIDS Procedures PRO HEMORRHOIDECTOMY, INT/EXT, COMPLX HEMORRHOIDECTOMY, INTERNAL & EXTERNAL, COMPLEX (WRVU 6.73) Referral ID Status Reason Start Date Expiration Date Visits Requ ested Visits Authorized [id number] 1 1 Encounter Details Date Type Department Care Team Description 10/28/2016 Hospital Encounter Outpatient Surgery Seng Lema, [place] Phuong Villa MD [facility] [place] [address] [place] [address] [place] [address] [phone] Social History Tobacco Use Types Packs/Day Years Used Date Smoking Tobacco: Never Assessed Sex Assigned at Date Recorded Not on file documented as of this encounter Last Filed Vital Signs Vital Sign Reading Time Taken Comments Blood Pressure 135/78 10/28/2016 1:34 PM EDT Pulse 79 10/28/2016 2:05 PM EDT Temperature 36.2 ??C (97.2 ??F) 10/28/2016 1:15 PM EDT Respiratory Rate 20 10/28/2016 2:05 PM EDT Oxygen Saturation 96% 10/28/2016 2:05 PM EDT Inhaled Oxygen Concentration - - Weight 97.5 kg (215 lb) 10/28/2016 11:18 AM EDT Height 177.8 cm (5' 10) 10/28/2016 11:18 AM EDT Body Mass Index 30.85 10/28/2016 11:18 AM EDT documented in this encounter Discharge Instructions Discharge InstructionsTiti Holloway RN - 10/28/2016 11:25 AM EDT General Anesthesia Discharge Instructions Go home and rest. You may be sleepy for several hours. Take it easy as sudden position changes may cause nausea and/or dizziness. Use caution on stairs. Do not smoke if you are alone. Follow a light to regular diet as tolerated today. If nausea occurs, start with clear liquids, and progress slowly to a regular diet. Do not drive, operate machinery, drink alcoholic beverages or make any legal decisions after having general anesthesia. The medications given change your reaction time and alter your judgement. IV site -- slight redness is normal, you can use warm compresses. If tenderness and redness increases or foul drainage occurs, please contact your M.D. Patients who have had endotracheal tubes/LMA (tubes used by the anesthesia staff to ensure a safe airway during your operation) may have a sore throat. This is normal and cold liquids or soothing lozengers will help ease this discomfort. Narcotic pain medications can cause constipation, please ask the surgeons office what they recommendfor prevention of this. Some non-pharmaceutical means of constipation prevention include increasing intake of fluids, eating more fruits and vegetables as well as fruit juices. If you are uncomfortable and/or unable to urinate within 8 hours of discharge and it is before 5 pm,call your physician. If it is after 5pm go to the closest emergency room or call the hospital cracking and fanning machine operator at [phone] and ask for physician engine emission technician covering for your physician. Questions or problems after 5pm or on a weekend: Call the [facility] cracking and fanning machine operator at and ask for the physician engine emission technician covering for your doctor. Patient InstructionsWesly Cruz MD - 10/28/2016 1:18 PM EDT Instructions following Hemorrhoidectomy Wound Care: You may have packing in place. You may remove this once you get home or wait for it to expel with your first bowel movement. Sitz baths three times a day and after every bowel movement to keep the area clean (these are soaks in warm water, you may add some epsom salts if you wish). Medications: You should take: 1. Colace 100 mg by mouth twice daily (Over the counter stool softener) 2. Metamucil twice daily (stool instructional assistant to help prevent straining and recurrence of hemorrhoids) Activity: No heavy lifting more than 25 pounds for the next week to prevent straining. Call Doctor for: Please call for pain not controlled by pain medications, persistent nausea and vomiting, or for any fevers greater than 101.3 F. Bloody spotting is normal following this operation but if you are concerned about the amount of bleeding please call. The number for questions is [phone] before 5 PM weekdays and [phone] after 5 PM and weekends. Pain Medication: No driving for 8 hours after any dose of opioid pain medication if one was prescribed for you. You may use ibuprofen (motrin, advil) in addition to this medication if your pain is not totally controlled by the opioid. Follow-up: Follow-up appointment will be scheduled with Dr. LOPEZ in 1-2 weeks. Appointment will be mailed to you. Please call [phone] (clinic number for appointments) to confirm date and time of your appointment if you do not receive your apointment in 1 week. documented in this encounter Medications at Time [...] documented as of this encounter H&P Notes Wesly Cruz MD - 10/28/2016 12:30 PM EDT Colorectal Surgery Preop NAME: Zander Waldron DATE: 10/28/16 SURGEON: MATT LEMA PROCEDURE: Hemorrhoidectomy BRIEF HISTORY: Zander Waldron is a 56 y.o. male with bleeding internal hemorrhoids. The patient reports no interval change. There has been no interval medical illness or hospitalizations. Questions have been addressed. Smoking HX: History Smoking Status ??? Not on file Smokeless Tobacco ??? Not on file PMH: There are no active problems to display for this patient. PSH: No past surgical history on file. MEDS: No current facility-administered medications on file prior to encounter. Current Outpatient Prescriptions on File Prior to Encounter Medication Sig Dispense Refill ??? omeprazole (PRILOSEC) 20 mg Capsule, Delayed Release(E.C.) Take 20 mg by mouth daily. ALL: No Known Allergies Physical Exam Vitals: 10/28/16 1118 BP: (!) 140/92 Pulse: 62 Resp: 18 Temp: 36.1 ??C (97 ??F) Gen: NAD, pleasant, sitting comfortably in bed HEENT: normocephalic, atraumatic, EOMI, sclerae anicteric Neck: supple, trachea midline Card: RRR, no M/R/G appreciated Pulm: CTAB, no wheeze/ronchi/rales appreciated, non-labored breathing on room air Abd: soft, NT, BS+ Ext: warm, dry, no edema Neuro: A&Ox3, CN II-XII grossly intact, nonfocal, conversant LABS: No results found for: NA, K, CL, CO2, BUN, CREATININE CONSENT: Yes/EMR - Yes Assessment/Plan: Zander Waldron is a 56 y.o. male presenting today for planned hemorrhoidectomy due to bleeding internal hemorrhoids. Consent signed and confirmed in chart. Questions addressed. Will proceed with planned surgery. Wesly Cruz MD 10/28/2016 Colorectal Surgery Service Pager [phone] documented in this encounter Miscellaneous Notes Brief Op Note - Wesly Cruz MD - 10/28/2016 1:19 PM EDT Brief Operative Note Patient Name: Zander Waldron : [id number] MR#: [id number] Case Date: 10/28/2016 Surgeon: Surgeon(s) and Role: * Matt Lema MD - Primary * Wesly Cruz MD - Resident-Instrument And Electrical Technician Preoperative diagnosis: INTERNAL HEMORRHOIDS Postoperative diagnosis: Internal hemorrhoids Procedure(s) (LRB): HEMORRHOIDECTOMY, INTERNAL & EXTERNAL, COMPLEX (WRVU 6.73) (N/A) Anesthesia: General Findings: Excision of thrombosed left lateral internal hemorrhoid, right anterior and posterior internal hemorrhoids. Excision of distal rectal polyp. Complications: None Estimated Blood Loss: * No values recorded between 10/28/2016 12:52 PM and 10/28/2016 1:06 PM * Fluids: Intraprocedure Crystalloid Total None PRBCs: none (See Anesthesia Record/Report for Other Blood Products) Urine Output: (no blood products) Drains: None Disposition: awakened from anesthesia, extubated and taken to the recovery room in a stable condition, having suffered no apparent untoward event. Condition: doing well without problems (Please see the Surgical Encounter Summary for any Implant and Specimen details pertinent to this patient.) Infection Bundle used? N/A Op Note - Matt Lema MD - 10/28/2016 1:17 PM EDT [facility] [place] Patient Name: Zander Waldron : [id number] MR#: [id number] Case Date: 10/28/2016 Surgeon: Surgeon(s) and Role: * Matt Lema MD - Primary * Wesly Cruz MD - Resident-Instrument And Electrical Technician Preoperative diagnosis: INTERNAL HEMORRHOIDS Postoperative diagnosis: Internal hemorrhoids Procedure(s) (LRB): HEMORRHOIDECTOMY, INTERNAL & EXTERNAL, COMPLEX (WRVU 6.73) (N/A) Anesthesia: General Estimated Blood Loss: * No values recorded between 10/28/2016 12:52 PM and 10/28/2016 1:06 PM * Specimens removed during surgery: Distal rectal polyp, hemorrhoids Drains: Surgical Closure: Other Than Primary Closure - deep and superficial layers are left completely open during original surgery Disposition: awakened from anesthesia, extubated and taken to the recovery room in a stable condition, having suffered no apparent untoward event. Condition: doing well without problems (Please see the Surgical Encounter Summary for any Implant and Specimen details pertinent to this patient.) HPI/Surgical Indications: rectal bleeding Procedure Description: After patient placed on OR table in prone position, time out was performed and rectal area was prepped with betadine and draped in the usual sterile fashion. Local was infiltrated throughout the area. Inspection with a Gaming bivalve anoscope revealed a polyp arising just at the dentate line travelling proximally 2 cm. There was also a thrombosed external hemorrhoid distal to this. There were minor internal hemorrhoids in the right anterior and right posterior zones. I excised the thrombosed external hemorrhoid with the electrocautery. I used the harmonic scalpel to excise thepolyp with a 1-2 mm margin of normal rectal mucosa. I then excised the other internal hemorrhoids with the harmonic scalpel all using an open technique. Care was taken to avoid underlying sphincter injury. A surgicel and dry dressing was placed and the patient was emerged from anesthesia and taken to the recovery in good condition. Infection Bundle used? N/A Attestation: Case Date: 10/28/2016 I was present and I participated during the entire procedure (does not need to include opening and closing). Matt Lema MD 10/28/2016 documented in this encounter Plan of Treatment Not on filedocumented as of this encounter Procedures Procedure Name Priority Date/Time Associated Diagnosis Comme nts SPECIMEN TO Routine 10/28/2016 12:59 PM Results for this PATHOLOGY EDT procedure are i n the results section. SURGICAL PATHOLOGY Routine 10/28/2016 12:54 PM Re sults for this REPORT EDT procedure are i n the results section. SPECIMEN TO Routine 10/28/2016 12:54 PM Results for this PATHOLOGY EDT procedure are i n the results section. HEMORRHOIDECTOMY, Yes 10/28/2016 12:35 PM Internal hemorrh oids INTERNAL & EDT EXTERNAL, COMPLEX (WRVU 6.73) documented in this encounter Results Specimen to Pathology (surgical or derm) (10/28/2016 12:59 PM EDT) Specimen Anatomical Collection Method Collection Time Receive d Time (Source) Location / / Volume Laterality AP Specimen 10/28/2016 12:59 10/28/2016 PM EDT 12:59 PM EDT Narrative [facility] - 10/28/2016 12:59 PM EDT Specimen requisition ordered. ??Separate Pathology report to follow Matt Lema MD PATHOLOGY/CYTOLOGY ORDERABLE S Performing Organization Address City/State/ZIP Code Phon e Number [place] [id number] Surgical Pathology Report (10/28/2016 12:54 PM EDT) Component Value Ref Test Analysis Performed At [facility] gist Range Method Time Signature Surgical [id number] ? Location: [facility] Report The signing pathologist has (i) examined the relevant preparation(s) for the [facility] specimen(s) and (ii) rendered or confirmed the diagnosis(es) . HOSPITAL LABORATORY . ?Surgic al Pathology DIAGNOSIS A - Bilateral hemorrhoid: Anal squamous and rectal col umnar junctional mucosa with subepithelial vascular dilation and congestion, compatible with hemorrhoid. B - Distal rectum, ??polypectomy: Traditional serrated adenoma. CR-PX Electronically signed by: ??Grey LOPEZ, Love Verified: ??11/04/2016 ?Pathologist CLINICAL INFORMATION Specimen Submitted: A - Bilateral hemorrhoids B - Distal rectal polyp Clinical History: Hemorrhoids Clinical Diagnosis: Same SPECIMEN PROCESSING A - ??Labeled/Fixative: Bilateral hemorrhoids, formalin. Quantity/Size: Four, ranging from 1.0 x 1.0 x 0.6 cm 2.3 x 1 .3 x 1.3 cm. Tissue Description: Intact, polypoid portion of pink-red skin and mucosa with underlying, congested vasculature. Sections/Processing: Inked and serially sectioned. (R1) B - ??Labeled/Fixative: Distal rectal polyp, formalin. Quantity/Size: Single, 2.0 x 1.5 x 1.5 cm. Tissue Description: Soft, red friable polyp. Sections/Processing: Inked and serially sectioned. (T2) ??sn s Specimen (Source) Anatomical Collection Method Collection Time Re ceived Time Location / / Volume Laterality 10/28/2016 12:54 PM EDT Matt Lema MD PATHOLOGY/CYTOLOGY ORDERABLE S Performing Organization Address City/[facility]/ZIP Code Phon e Number [address] Specimen to Pathology (surgical or derm) (10/28/2016 12:54 PM EDT) Specimen Anatomical Collection Method Collection Time Receive d Time (Source) Location / / Volume Laterality AP Specimen 10/28/2016 12:54 10/28/2016 PM EDT 12:54 PM EDT Narrative [facility] - 10/28/2016 12:54 PM EDT Specimen requisition ordered. ??Separate Pathology report to follow Matt Lema MD PATHOLOGY/CYTOLOGY ORDERABLE S Performing Organization Address City/State/[place] [address] documented in this encounter Visit Diagnoses Not on filedocumented in this encounter Administered Medications Inactive Administered Medications - up to 3 most recent administrations Medication Order MAR Action Action Date Dose Rate Site acetaminophen (TYLENOL) 325 mg Given 10/28/2016 2:03 PM EDT 650 mg tablet 1 dose, Starting on Thu10/28/16 at 1401, Until Thu10/28/16 at 1403, MARCELINA BARRERA: cabinet override acetaminophen (TYLENOL) tablet 650 mg 650 mg, Oral, ONCE, 1 dose, On Thu at 1500, Maximum dose of acetaminophen is 4000 mg from all sources in 24 hours., Routine documented in this encounter Active and Recently Administered Medications Times are shown in EDT. Scheduled Medication Order 10/26/2016 10/27/2016 10/28/2016 acetaminophen (TYLENOL) tablet 650 mg 650 mg, Oral, ONCE, 1 dose, Thu10/28/16 at 1500, Maximum dose of acetaminophen is 4000 mg from all sources in 24 hours., Routine Continuous Medication Order 10/26/2016 10/27/2016 10/28/2016 lactated Ringers infusion 1,000 mL (CANCELED) 1220 (New Bag - Provider: Pamella Isabel CRNA) 1,000 mL, at 100 mL/hr, Intravenous, CON TINUOUS, Starting Thu10/28/16 at 1130, Until Thu10/28/16 at 1434, Day of Surgery (Day of Procedure) PRN Medication Order 10/26/2016 10/27/2016 10/28/2016 BUpivacaine (PF) (MARCAINE) 0.25 % (2.5 mg/mL) injection (CANCEL ED) 1306 (Given - Provider: Matt Lema MD - Comment: perirectal) ONCE PRN, Starting Thu10/28/16 at 1306, Until Thu10/28/16 at 1635, Intra- Operative (Intra-Procedure), Routine lidocaine-EPINEPHrine 1 %-1:200,000 injection (CANCELED) 1306 (Given - Provider: Matt Lema MD - Comment: perirectal) ONCE PRN, Starting Thu10/28/16 at 1306, Until Thu10/28/16 at 1635, Intra- Operative (Intra-Procedure), Routine No Frequency Medication Order 10/26/2016 10/27/2016 10/28/2016 acetaminophen (TYLENOL) 325 mg tablet (COMPLETED) 1403 (Given - Provider: Marcelina Barrera, JOSE ELIAS - Comment: prior to ride home) 1 dose, Starting Thu10/28/16 at 1401, Un til Thu10/28/16 at 1403, MARCELINA BARRERA: cabinet override documented in this encounter
--- OUTSIDE RECORDS SUMMARY | 2022-01-27 16:06 | XMS_ITS | Encounter Summary ---
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 Procedures EMERGENCY IPI Referral ID Status Reason Start Date Expiration Date Visits Requ ested Visits Authorized [id number] 1 1 Encounter Details Date Type Department Care Team Description 03/11/2021 Surgery Gastroenterology at [facility] Titi Stroud, EGD WITH BIOPSY ([facility] Izzy noriega MD [address] [place] [address] [facility] [phone] [place], [place] [address] Social History Tobacco Use Types Packs/Day Years Used Date Smoking Tobacco: Former Smokeless Tobacco: Never Alcohol Use Standard Drinks/Week Comments Not Currently 0 (1 standard drink = 0.6 oz pure alcoho l) about once a month Sex Assigned at Date Recorded Not on file documented as of this encounter Last Filed Vital Signs Vital Sign Reading Time Taken Comments Blood Pressure 103/76 03/11/2021 5:00 PM EST Pulse 78 03/11/2021 5:00 PM EST Temperature 36.1 ??C (97 ??F) 03/11/2021 3:09 PM EST Respiratory Rate 19 03/11/2021 5:00 PM EST Oxygen Saturation 94% 03/11/2021 5:00 PM EST Inhaled Oxygen Concentration - - Weight 86.2 kg (190 lb) 03/11/2021 3:09 PM EST Height - - Body Mass Index 28.47 02/26/2021 5:35 PM EST documented in this encounter Discharge Instructions AttachmentsThe following attachments cannot be sent through Care Everywhere.EGD (Upper Endoscopy): Post-op (Macedonian)Colonoscopy: Post-op (Macedonian)documented in this encounter Medications at Time of Discharge Medication Sig Dispensed Refills Start Date End Date apixaban (Eliquis) 5 mg Take 5 mg [...] documented as of this encounter H&P Notes Titi Stroud MD - 03/11/2021 3:39 PM EST Patient Name: Zander Waldron Patient Age: 60 y.o. Birthdate: 1960 Admit date: 03/11/2021 Attending Physician: Titi Stroud MD Gastroenterology and Hepatology Pre-Procedure History and Physical Exam Procedure: EGD: Colonoscopy: Indication: GERD; 1-year follow up traditional serrated adenoma. Recent bilateral DVT of unclear etiology. Patient Active Problem List Diagnosis Code ??? Acquired hypothyroidism E03.9 ??? Acute bilateral deep vein thrombosis (DVT) of iliac veins of lower extremities I82.423 ??? Diverticular disease of colon K57.30 ??? DVT, lower extremity, proximal, acute, bilateral I82.4Y3 ??? Gastroesophageal reflux disease without esophagitis K21.9 ??? 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 ASA 2 - Patient with mild systemic disease with no functional limitations Sedation Plan: moderate (conscious sedation) Risks and benefits of the procedure explained to the patient. Consent signed. documented in this encounter Plan of Treatment Not on filedocumented as of this encounter Procedures Procedure Name Priority Date/Time Associated Comments Diagnosis SURGICAL PATHOLOGY Routine 03/11/2021 5:08 PM Res ults for this REPORT EST procedure are i n the results section. SPECIMEN TO PATHOLOGY Routine 03/11/2021 5:08 PM Results for this EST procedure are i n the results section. COLONOSCOPY, 03/11/2021 4:24 PM follow up high DIAGNOSTIC EST risk, GI issues and hernia issues,GERD- blood clot in pelvis EGD WITH BIOPSY ([facility]U 03/11/2021 4:24 PM follow up hig h 2.49) EST risk, GI issues and hernia issues,GERD- blood clot in pelvis UPPER GI ENDOSCOPY Routine 03/11/2021 4:21 PM Res ults for this EST procedure are i n the results section. COLONOSCOPY Routine 03/11/2021 4:21 PM Results f or this EST procedure are i n the results section. documented in this encounter Results Surgical Pathology Report (03/11/2021 5:08 PM EST) Component Value Ref Test Analysis Performed At [facility] Range Method Time Signature Surgical [id number] ? Location: ; [facility]; [facility] Pathology [facility] Report The signing pathologist has (i) examined the relevant preparation(s) for the [facility] specimen(s) and (ii) rendered or confirmed the diagnosis(es) . [facility]PITAL [facility]ORY . ?Surgic al Pathology DIAGNOSIS A - Z-line, biopsy (Multiple): - ??Gastric fundic mucosa with focal dilated glands, n egative for intestinal metaplasia. Electronically signed by: ?Love Edmonds MD Verified: ??03/15/2021 19:23 ??Pathologist Performed at: ??-[facility] Dept. of Pathology, [place], [place] SPECIMEN(S) SUBMITTED A - Z-line, biopsy (Multiple) CLINICAL INFORMATION 60-year-old male with GERD SPECIMEN PROCESSING A - Labeled/Fixative: Z line, formalin. Quantity/Size: Two, 0.1 and 0.2 cm. Tissue Description: Soft, child-pink tissues. Sections/Processing: Submitted en toto ??in 1 cassette labeled A1. ??pps Specimen (Source) Anatomical Collection Method Collection Time Re ceived Time Location / / Volume Laterality 03/11/2021 5:08 PM EST Titi Stroud MD PATHOLOGY/CYTOLOGY ORDERABLE S Performing Organization Address City/State/[place] [address] Specimen to Pathology (03/11/2021 5:08 PM EST) Specimen Anatomical Collection Method Collection Time Receive d Time (Source) Location / / Volume Laterality AP Specimen 03/11/2021 5:08 PM 2 5:08 EST PM EST Narrative [facility] - 03/11/2021 5:08 PM EST Specimen requisition ordered. ??Separate Pathology report to follow Titi Stroud MD PATHOLOGY/CYTOLOGY ORDERABLE S Performing Organization Address City/[facility]/[place] [address] UPPER GI ENDOSCOPY (03/11/2021 4:21 PM EST) Component Value Ref Test Analysis Performed At [facility] gist Range Method Time Signature UPPER GI [facility] ENDOSCOPY Endoscopy Procedure Date: 03/11/2021 4:21 PM ? Patient Name: Zander Waldron ? Date of : 1960 ? Age: 60 ? Order #: [id number] ? Instrument Name: [id number] ? Procedure: ? Upper GI endoscopy Indications: ? Heartburn Patient Profile: ? 60 yo M with GERD presents for EGD. Providers: ? Fredy Ji, JOSE ELIAS, ? Fabian Barclay MD: ?Brooks Duarte MD Medicines: ? Midazolam 5 mg IV, Fentanyl 200 ? micrograms IV, Benzocaine spr ay Complications: ? No immediate complications. Procedure: ? [...] the physician, the nurse and the ? location and measurement technician in the pre-procedu re area ? in the procedure room. Mental Status ? Examination: alert and orient ed. ? Airway Examination: normal ? oropharyngeal airway and neck ? mobility. Respiratory Examina tion: ? clear to auscultation. CV ? Examination: normal. Prophyla ctic ? Antibiotics: The patient does not ? require prophylactic antibiot ics. ? Prior Anticoagulants: The pat ient has ? taken Eliquis (apixaban), las t dose ? was 2 days prior to procedure . ASA ? Grade Assessment: II - A davian ent with ? mild systemic disease. After ? reviewing the risks and benef its, the ? patient was deemed in satisfa ctory ? condition to undergo the proc edure. ? The anesthesia plan was to us e ? moderate sedation / analgesia ? (conscious sedation). Immedia tely ? prior to administration of ? medications, the patient was ? re-assessed for adequacy to r eceive [...] ? tolerated the procedure well. The ? upper GI endoscopy was accomp lished ? without difficulty. The patie nt ? tolerated the procedure well. ? Findings: ? The Z-line was irregular and was found 35 cm from the ? incisors. Biopsies were taken with a cold forceps for ? histology. ? A 5 cm hiatal hernia was present. ? A few 2 to 5 mm sessile polyps were found in the ? gastric body. ? The examined duodenum was normal. ? Moderate Sedation: ? Moderate (conscious) sedation was administered by the ? endoscopy nurse and supervised by the endoscopist. ? The following parameters were monitored: oxygen ? saturation, heart rate, blood pressure, and response ? to care. ? I was present during the intraservice time as ? documented by the sedation RN. Impression: ?- Z-line irregular, 35 cm from the ? incisors. Biopsied. ? - 5 cm hiatal hernia. ? - A few gastric polyps consis tent ? with benign fundic gland poly ps. ? - Normal examined duodenum. Recommendation: ?- Patient has a contact number ? available for emergencies. Th e signs ? and symptoms of potential del ayed ? complications were discussed with the ? patient. Return to normal act ivities ? tomorrow. Written discharge ? instructions were provided to the ? patient. ? - Await pathology results. ? - Proceed with colonoscopy as planned. ? Attending Participation: ? I personally performed the entire procedure. ? Titi Stroud, 03/11/2021 4:49:41 PM Number of Addenda: 0 Note Initiated On: 03/11/2021 4:21 PM Specimen (Source) Anatomical Collection Method Collection Time Re ceived Time Location / / Volume Laterality 03/11/2021 4:21 PM EST Brooks Duarte MD GENERAL SURGICAL ORDERABLES Performing Organization Address City/State/ZIP Code Phon e Number [facility] COLONOSCOPY (03/11/2021 4:21 PM EST) Component Value Ref Test Analysis Performed At [facility] Method Time Signature COLONOSCOPY [facility] Endoscopy Procedure Date: 03/11/2021 4:21 PM ? Patient Name: Zander Waldron ? N: [id number] ? Date of : 1960 ? Age: 60 ? Order #: [id number] ? Instrument Name: [id number] ? Procedure: ? Colonoscopy Indications: ? High risk colon cancer surveillance : ? Personal history of colonic p olyps Patient Profile: ? 60 yo M presents for surveillance of ? 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 ago and polyp within a divert iculum. ? Recent bilateral DVT of unkno wn ? etiology on apixiban, held 2 days ? prior to procedure. Providers: ? Fredy Ji, RN, ? Fabian Kinney Referring MD: ?Brooks Duarte MD Medicines: ? Midazolam 1 mg IV, Fentanyl 50 ? micrograms IV, Diphenhydramin e 25 mg ? IV, plus residual medication from EGD Complications: ? No immediate complications. Procedure: ? [...] the physician, the nurse and the ? location and measurement technician in the pre-procedu re area ? in the procedure room. Mental Status ? Examination: alert and orient ed. ? Airway Examination: normal ? oropharyngeal airway and neck ? mobility. Respiratory Examina tion: ? clear to auscultation. CV ? Examination: normal. Prophyla ctic ? Antibiotics: The patient does not ? require prophylactic antibiot ics. ? Prior Anticoagulants: The pat ient has ? taken Eliquis (apixaban), las t dose ? was 2 days prior to procedure . ASA ? Grade Assessment: II - A davian ent with ? mild systemic disease. After ? reviewing the risks and benef its, the ? patient was deemed in satisfa ctory ? condition to undergo the proc edure. ? The anesthesia plan was to us e ? moderate sedation / analgesia ? (conscious sedation). Immedia tely ? prior to administration of ? medications, the patient was ? re-assessed for adequacy to r eceive [...] direct visuali zation, ? advanced to the cecum, identi fied by ? appendiceal orifice and ileoc ecal ? valve. Careful inspection was made as ? the colonoscope was withdrawn . The ? colonoscopy was performed wit hout ? difficulty. The patient cirilo ated the ? procedure well. The quality o f the ? bowel preparation was adequat e. ? Findings: ? The perianal and digital rectal examinations were ? normal. ? A few small-mouthed diverticula were found in the ? sigmoid colon and descending colon. ? Tattoo seen in sigmoid colon, at site of piece-meal ? resection of sigmoid colon polyp within a ? diverticulum. It appears the distal and proximal ? tattoo ink ran together into a contiguous area. The ? diverticulum were examined carefully with no residual ? or recurrent polyp tissue identified. ? Rectal scar at site of traditional serrated adenoma ? resection. No recurrent or residual polyp. ? Moderate Sedation: ? Moderate (conscious) sedation was administered by the ? endoscopy nurse and supervised by the endoscopist. ? The following parameters were monitored: oxygen ? saturation, heart rate, blood pressure, and response ? to care. ? I was present during the intraservice time as ? documented by the sedation RN. Impression: ?- Diverticulosis in the sigmoid co asmita ? and in the descending colon. ? - No recurrent polyp at sigmo id colon ? diverticulum or in the rectum . Recommendation: ?- Patient has a contact number ? available for emergencies. Th e signs ? and symptoms of potential del ayed ? complications were discussed with the ? patient. Return to normal act ivities ? tomorrow. Written discharge ? instructions were provided to the ? patient. ? - Repeat colonoscopy in three (3) ? years, March 2024, for cont inued ? surveillance. ? Attending Participation: ? I personally performed the entire procedure. ? Titi Stroud, 03/11/2021 5:22:27 PM Number of Addenda: 0 Note Initiated On: 03/11/2021 4:21 PM Specimen (Source) Anatomical Collection Method Collection Time Re ceived Time Location / / Volume Laterality 03/11/2021 4:21 PM EST Brooks Duarte MD GENERAL SURGICAL ORDERABLES Performing Organization Address City/State/ZIP Code Phon e Number [facility] documented in this encounter Visit Diagnoses Not on filedocumented in this encounter Administered Medications Inactive Administered Medications - up to 3 most recent administrations Medication Order MAR Action Action Date Dose Rate Site benzocaine (Hurricane One) 20% Given 03/11/2021 4:38 PM EST 1 sp ray spray (restricted to mikel-procedural use) ONCE PRN, Starting on Thu03/11/21 at 1638, Until Thu03/11/21 at 1958, Intra-Operative (Intra-Procedure) diphenhydrAMINE (Benadryl) (50 mg/mL) Given 03/11/2021 4:[address] 25 mg injection ONCE PRN, Starting on Thu03/11/21 at 1659, Until Thu03/11/21 at 195, Intra-Operative (Intra-Procedure), Routine fentaNYL (pf) (50 mcg/mL) multi-dose Given 03/11/2021 4:59 PM ES T 50 mcg injection ONCE PRN, Starting on Thu03/11/21 at 1639, Until Thu03/11/21 at 195, Intra-Operative (Intra-Procedure), Routine Given 03/11/2021 4:42 PM EST 50 mcg Given 03/11/2021 4:39 PM EST 50 mcg lactated ringers infusion New Bag 03/11/2021 3:20 PM EST 100 mL/hr 100 mL/hr 100 mL/hr, Intravenous, CONTINUOUS, Starting on Thu03/11/21 at 1530, Until Thu03/11/21 at 1957, Endoscopy (Day of Procedure) midazolam (pf) (Versed) (1 mg/mL) multi-dose Given 03/11/2021 4: 59 PM EST 1 mg injection ONCE PRN, Starting on Thu03/11/21 at 1639, Until Thu03/11/21 at 1957, Intra-Operative (Intra-Procedure), Routine Given 03/11/2021 4:42 PM EST 1 mg Given 03/11/2021 4:39 PM EST 1 mg documented in this encounter Active and Recently Administered Medications Times are shown in EST. Continuous Medication Order 03/09/2021 03/10/2021 03/11/2021 lactated ringers infusion 1520 ( New Bag - Provider: Tali Holt RN) 100 mL/hr, Intravenous, CONTINUOUS, Star ting on Thu03/11/21 at 1530, Until Thu03/11/21 at 195, Endoscopy (Day of Procedure) PRN Medication Order 03/09/2021 03/10/2021 03/11/2021 benzocaine (Hurricane One) 20% spray (re stricted to mikel-procedural use) (CANCELED) 1638 (Given - Provid er: Fredy Valencia RN) ONCE PRN, Starting on Thu03/11/21 at 163 8, Until Thu03/11/21 at 195, Intra- Operative (Intra-Procedure) diphenhydrAMINE (Benadryl) (50 mg/mL) injection (CANCELED) 1659 (Given - Provider: Fredy Valencia RN) ONCE PRN, Starting on Thu03/11/21 at 165 9, Until Thu03/11/21 at 1958, Intra- Operative (Intra-Procedure), Routine fentaNYL (pf) (50 mcg/mL) multi-dose injection (CANCELED) 1633 (Given - Provider: Fredy Valencia RN)1636 (Given - Provider: Fredy Valencia RN)1639 (Given - Provider: Ferdy Valencia RN)1642 (Given - Provider: Fredy Valencia RN)1659 (Given - Provider: Fredy Valencia RN) ONCE PRN, Starting on Thu03/11/21 at 163 9, Until Thu03/11/21 at 1958, Intra- Operative (Intra-Procedure), Routine midazolam (pf) (Versed) (1 mg/mL) multi-dose injection (CANCELED ) 1633 (Given - Provider: Fredy Valencia RN)1636 (Given - Provider: Fredy Valencia RN)1639 (Given - Provider: Fredy Valencia RN)1642 (Given - Provider: Fredy Valencia RN)1659 (Given - Provider: Fredy Valencia RN) ONCE PRN, Starting on Thu03/11/21 at 163 9, Until Thu03/11/21 at 1958, Intra- Operative (Intra-Procedure), Routine documented in this encounter Care Teams Auger Press Operator Relationship Specialty Start Date End Date Brooks Duarte MD PCP - General Family Medicine 05/07/20 03/11/21 [address] [place] [address] documented as of this encounter
--- OUTSIDE RECORDS SUMMARY | 2022-01-27 16:06 | XMS_ITS | Encounter Summary ---
:1960 Author Organization [facility] Address [facility] [place] [address] Care Team Providers Name Role Phone Unavailable Primary Care Provider Unavailable Reason for Visit Auth/Cert Specialty Diagnoses / Procedures Referred By Contact Refer red To Contact Diagnoses Second degree hemorrhoids INTERNAL HEMORRHOIDS Procedures PRO HEMORRHOIDECTOMY, INT/EXT, COMPLX HEMORRHOIDECTOMY, INTERNAL & EXTERNAL, COMPLEX (WRVU 6.73) Referral ID Status Reason Start Date Expiration Date Visits Requ ested Visits Authorized [id number] 1 1 Encounter Details Date Type Department Care Team Description 10/28/2016 Surgery Outpatient Surgery Matt Lema H EMORRHOIDECTOMY, Center Phuong Villa MD INTERNAL & EXTERNAL, [facility] COMPLEX (WRVU 6.73) [facility] [place] [address] [place] [address] [phone] Social History Tobacco Use Types Packs/Day Years Used Date Smoking Tobacco: Never Assessed Sex Assigned at Date Recorded Not on file documented as of this encounter Last Filed Vital Signs Vital Sign Reading Time Taken Comments Blood Pressure 135/78 10/28/2016 1:34 PM EDT Pulse 91 10/28/2016 1:34 PM EDT Temperature 36.2 ??C (97.2 ??F) 10/28/2016 1:15 PM EDT Respiratory Rate 20 10/28/2016 1:34 PM EDT Oxygen Saturation 95% 10/28/2016 1:34 PM EDT Inhaled Oxygen Concentration - - [...] closest emergency room or call the hospital metal machine operator at [phone] and ask for physician aeronautical products sales engineer covering for your physician. Questions or problems after 5pm or on a weekend: Call the [facility] metal machine operator at and ask for the physician aeronautical products sales engineer covering for your doctor. Patient InstructionsWesly Cruz [...] stool softener) 2. Metamucil twice daily (stool line and frame poler to help prevent straining and recurrence of [...] please call. The number for questions is [phone] before 5 PM weekdays and [phone] after 5 PM and weekends. Pain Medication: [...] will be mailed to you. Please call [phone] (clinic number for appointments) to confirm date [...] Cruz MD 10/28/2016 Colorectal Surgery Service Pager [phone] documented in this encounter Miscellaneous Notes Brief Op Note - Wesly Cruz MD - 10/28/2016 1:19 PM EDT Brief Operative Note Patient Name: Zander Waldron : [id number] MR#: [id number] Case Date: 10/28/2016 Surgeon: Surgeon(s) and Role: * Matt Lema MD - Primary * Wesly Cruz MD - Resident-Food Manager Preoperative diagnosis: INTERNAL HEMORRHOIDS Postoperative diagnosis: Internal [...] Lema MD - 10/28/2016 1:17 PM EDT [facility] Operative Note Patient Name: Zander Waldron : [id number] MR#: [id number] Case Date: 10/28/2016 Surgeon: Surgeon(s) and Role: * Matt Lema MD - Primary * Wesly Cruz MD - Resident-Food Manager Preoperative diagnosis: INTERNAL HEMORRHOIDS Postoperative diagnosis: Internal [...] 10/28/2016 PM EDT 12:59 PM EDT Narrative [facility] - 10/28/2016 12:59 PM EDT Specimen requisition ordered. ??Separate Pathology report to follow Matt Lema MD PATHOLOGY/CYTOLOGY ORDERABLE S Performing Organization Address City/State/[place] [address] Surgical Pathology Report (10/28/2016 12:54 PM EDT) Component Value Ref Test Analysis Performed At [facility] gist Range Method Time Signature Surgical [id number] ? Location: [facility] The signing pathologist has (i) examined the relevant preparation(s) for the [facility] specimen(s) and (ii) rendered or confirmed the diagnosis(es) . HOSPITAL LABORATORY . ?Surgic al Pathology DIAGNOSIS A - Bilateral hemorrhoid: Anal squamous and rectal col umnar junctional mucosa with subepithelial vascular dilation and congestion, compatible with hemorrhoid. B - Distal rectum, ??polypectomy: Traditional serrated adenoma. CR-PX Electronically signed by: ??Love Edmonds MD Verified: ??11/04/2016 ?Pathologist CLINICAL INFORMATION Specimen Submitted: [...] Organization Address City/State/[place] [address] Specimen to Pathology (surgical or derm) (10/28/2016 12:54 PM EDT) Specimen Anatomical Collection Method Collection Time Receive d Time (Source) Location / / Volume Laterality AP Specimen 10/28/2016 12:54 10/28/2016 PM EDT 12:54 PM EDT Narrative [facility] - 10/28/2016 12:54 PM EDT Specimen requisition ordered. ??Separate Pathology report to follow Matt Lema MD PATHOLOGY/CYTOLOGY ORDERABLE S Performing Organization Address City/State/[place] [address] documented in this encounter [...] from all sources in 24 hours., Routine BUpivacaine (PF) (MARCAINE) 0.25 % (2.5 Given 10/28/2016 1:06 PM EDT 15 mLs mg/mL) injection ONCE PRN, Starting on e 10/28/16 at 1306, Until Thu10/28/16 at 1635, Intra-Operative (Intra-Procedure), Routine lidocaine-EPINEPHrine 1 %-1:200,000 inje ction Given 10/28/2016 1:06 PM EDT 15 mLs ONCE PRN, Starting on Thu10/28/16 at 1306, Until Thu10/28/16 at 1635, Intra-Operative (Intra-Procedure), Routine documented in this encounter Active and [...] 1220 (New Bag - Provider: Pamella Isabel [facility]) 1,000 mL, at 100 mL/hr, Intravenous, CON TINUOUS, Starting Thu10/28/16 at 1130, Until Thu10/28/16 at 1434, Day of Surgery (Day of Procedure) PRN Medication Order 10/26/2016 10/27/2016 10/28/2016 BUpivacaine (PF) (MARCAINE) 0.25 % (2.5 mg/mL) injection (CANCEL ED) 1306 (Given - Provider: Matt Lema MD - Comment: perirectal) ONCE PRN, Starting e 10/28/16 at 1306, Until Thu10/28/16 at 1635, Intra- Operative (Intra-Procedure), Routine lidocaine-EPINEPHrine 1 %-1:200,000 injection (CANCELED) 1306 (Given - Provider: Matt Lema MD - Comment: perirectal) ONCE PRN, Starting e 10/28/16 at 1306, Until Thu10/28/16 at 1635, Intra- Operative (Intra-Procedure), Routine No Frequency Medication Order 10/26/2016 10/27/2016 10/28/2016 acetaminophen (TYLENOL) 325 mg tablet (COMPLETED) 1403 (Given - Provider: Marcelina Barrera RN - Comment: prior to ride home) 1 dose, Starting Thu10/28/16 at 1401, Un til Thu10/28/16 at 1403, MARCELINA BARRERA: cabinet override documented in this encounter
--- OUTSIDE RECORDS SUMMARY | 2022-01-27 16:06 | XMS_ITS | Encounter Summary ---
:1960 Author Organization [facility] [address] Care Team Providers Name Role Phone Unavailable Primary Care Provider Unavailable Reason for Visit Reason Comments Establish Care Consultation (Routine) - Closed Specialty Diagnoses / Procedures Referred By Contact Refer red To Contact General Surgery Diagnoses HEMORRHOIDS Sandro Beck MD [facility] 4l [facility] [id number] [place] [phone] Fax: Referral ID Status Reason Start Date Expiration Date Visits Requ ested Visits Authorized [id number] Closed 05/01/2016 05/01/2017 1 1 Encounter Details Date Type Department Care Team Description 06/23/2016 Office Visit General Surgery at Matt Sullivan II [place]oids [facility] [place] Dominik [facility] [place] [address] [place] [address] [phone] Social History Tobacco Use Types Packs/Day Years Used Date Smoking Tobacco: Never Assessed Sex Assigned at Date Recorded Not on file documented as of this encounter Last Filed Vital Signs Vital Sign Reading Time Taken Comments Blood Pressure 119/81 06/23/2016 9:59 AM EDT Pulse 72 06/23/2016 9:59 AM EDT Temperature - - Respiratory Rate - - Oxygen Saturation 98% 06/23/2016 9:59 AM EDT Inhaled Oxygen Concentration - - Weight 97.8 kg (215 lb 9.6 oz) 06/23/2016 9:59 AM EDT Height 177.8 cm (5' 10) 06/23/2016 9:59 AM EDT Body Mass Index 30.94 06/23/2016 9:59 AM EDT documented in this encounter Progress Notes Matt Sullivan MD - 06/23/2016 10:00 AM EDT Colorectal Surgery Outpatient Consultation [place] [address] FAX: PCP: Noman Ramírez MD@ [phone] Referring Provider: Sandro Beck HPI: Zander Waldron is a pleasant 55 y.o. male who we were asked to see by Dr. Beck regarding bleeding internal hemorrhoids. He has been in his usual state of health and noticed over the last yearor so bright red rectal bleeding with bowel movements. He has blood on the toilet paper and drippingin the bowl. He notices masses when he wipes which reduce spontaneously, and he never has pushed them back in. The bleeding stops spontaneously. He had a colonoscopy a little over a year ago showing diverticulosis. He saw a surgeon locally who diagnosed internal hemorhoids and applied a rubber band. The patient has some discomfort and no change in his bleeding since then. His surgeon referred him forsurgical evaluation. Chief Complaint Patient presents with ??? Establish Care Past medical history: There is no problem list on file for this patient. Past surgical history: No past surgical history on file. Allergies: Review of patient's allergies indicates no known allergies. Medications: reviewed in the electronic medical record. No current outpatient prescriptions on file prior to visit. No current facility-administered medications on file prior to visit. Social history: Family medical history: Family medical history: No family history on file. Patient reported measures: Pain:1 Physical Health: Fall: Vitals: Blood pressure 119/81, pulse 72, height 177.8 cm (5' 10), weight 97.8 kg (215 lb 9.6 oz), SpO2 98 %. Body mass index is 30.94 kg/(m^2). RECTAL: No external hemorrhoids. Digital shows normal sphincter tone, moderate sized internal hemorrhoids, no masses. Labs: reviewed. Endoscopy: reviewed. Path: reviewed. Imaging: reviewed. A/P Grade II internal hemorrhoids. I reviewed the ASCRS guidelines for treatment with the patient and his . This patient could arguably fall into one of three categories: 1) hasn't maxed out his fiber intake. Although the patient describes a very healthy diet, he hasn't counted grams to see is he get 25-30 grams a day. 2) Grade II failing high fiber, we could argue for repeated rubber band ligation, although the patient was not interested in this or 3)Failed rubber band ligation, with persistent bleeding and I would offer hemorrhoidectomy. I discussed with the patient the risk/benefits of hemorrhoid surgery including bleeding, urinary retention, and significant pain and my use of the harmonic scalpel. The patient wants to re-double his efforts at increasing fiber and will call me in 4-6 weeks if this fails and we would schedule him for surgery at that time. Thank you for this interesting consultation, I do appreciate the opportunity to participate in this patients' care. I personally spent a total of 40 minutes in lgll-oc-tzab consultation with the patient, of which 35 were in patient education and counseling. Matt Sullivan MD, FACS, FASCRS Clinical compounder Division of Colon and Rectal Surgery [facility] documented in this encounter Plan of Treatment Not on filedocumented as of this encounter Visit Diagnoses Diagnosis Grade II hemorrhoids Unspecified hemorrhoids with other compl ication documented in this encounter
--- OUTSIDE RECORDS SUMMARY | 2022-01-27 16:06 | XMS_ITS | Encounter Summary ---
:1960 Author Organization [facility] [place] [address] Care Team Providers Name Role Phone None Primary Care Provider Unavailable Encounter Details Date Type Department Care Team Description 03/12/2021 Telephone Vascular Surgery Madhuri Charles MD [facility] [place] [address] VASCULAR SURGERY [phone] [place], [place] [address] (Wo rk) Social History Tobacco Use Types Packs/Day Years Used Date Smoking Tobacco: Former Smokeless Tobacco: Never Alcohol Use Standard Drinks/Week Comments Not Currently 0 (1 standard drink = 0.6 oz pure alcoho l) about once a month Sex Assigned at Date Recorded Not on file documented as of this encounter Miscellaneous Notes Telephone Encounter - Madhuri Charles MD - 03/12/2021 3:05 AM EST Hx hypothyroid History COVID 02/26 and B/l iliofem DVT (including duplicated IVC), held eliquis for colonoscopy yesterday and now presents with mottled cool RLE with doppler femoral pulse, palpable PT, sensation is intact, motor was not examined. No prior vascular history Recommended heparin gtt, jose wrap from toe to groin, and transfer to [facility] documented in this encounter Plan of Treatment Not on filedocumented as of this encounter Visit Diagnoses Not on filedocumented in this encounter Care Teams Account Information Clerk Relationship Specialty Start Date End Date None PCP - General 03/12/21 04/25/21 None documented as of this encounter
--- OUTSIDE RECORDS SUMMARY | 2022-01-27 16:06 | XMS_ITS | Encounter Summary ---
:1960 Author Organization [facility] Address [facility] [place] [address] Care Team Providers Name Role Phone Brooks Duarte MD Primary Care Provider [phone] Reason for Visit Auth/Cert Specialty Diagnoses [...] Expiration Date Visits Requ ested Visits Authorized [id number] 1 1 Encounter Details Date Type Department Care Team Description 05/07/2020 Hospital Encounter Gastroenterology at [facility] Rc Carrasquillo [facility] [place] [address] [facility] [phone] CENTER GASTROENTEROLOGY DEPT. [place], [place] [address] Social History Tobacco Use Types Packs/Day Years Used Date Smoking Tobacco: Former Smokeless Tobacco: Never Alcohol Use Standard Drinks/Week Comments Yes 0 (1 standard drink = 0.6 oz pure alcoho l) about once a month Sex Assigned at Date Recorded Not on file documented as of this encounter Last Filed Vital Signs Vital Sign Reading Time Taken Comments Blood Pressure 106/83 05/07/2020 12:20 PM EST Pulse 72 05/07/2020 11:55 AM EST Temperature 36.6 ??C (97.9 ??F) 05/07/2020 9:35 AM EST Respiratory Rate 15 05/07/2020 12:20 PM EST Oxygen Saturation 96% 05/07/2020 12:30 PM EST Inhaled Oxygen Concentration - - [...] occurs, please contact your Doctor. Please call [phone] before 8pm Mon-Fri with problems, questions or concerns. If you call after 8pm or on weekends, call the Hospital at [phone] and ask to speak to the [employer] board of education secretary and the nailing machine operator will contact that person for you. When should you call for help? Call [phone] anytime you think you may need emergency [...] Where can you learn more? [facility] View your After Visit Summary and more online at [email or web address] If you would like to provide feedback about your hospital experience, please call the Office of Patient and Family Relations at . If you have received this After Visit Summary in error, please immediately return it in person to the department, or notify the [facility] Privacy Office by calling toll free at between the hours of 8AM and 5PM to arrange for our retrieval of the documents at no cost to you. Content Version: 12.2 ?? 3298-6845 [employer]. Care instructions adapted under license by [facility]. If you have questions about a medical condition or this instruction, always ask your healthcare professional. [employer] disclaims any warranty or liability for your [...] the day after the procedure, use an qwqy-xht-nogghsa spray to numb yourthroat. Sucking on throat [...] occurs, please contact your Doctor. Please call [phone] before 8pm Mon-Fri with problems, questions or concerns. If you call after 8pm or on weekends, call the Hospital at [phone] and ask to speak to the [employer] board of education secretary and the nailing machine operator will contact that person for you. When should you call for help? Call [phone] anytime you think you may need emergency [...] Where can you learn more? [facility] View your After Visit Summary and more online at [email or web address] If you would like to provide feedback about your hospital experience, please call the Office of Patient and Family Relations at . If you have received this After Visit Summary in error, please immediately return it in person to the department, or notify the [facility] Privacy Office by calling toll free at between the hours of 8AM and 5PM to arrange for our retrieval of the documents at no cost to you. Content Version: 12.2 ?? 1417-5820 [employer]. Care instructions adapted under license by [facility]. If you have questions about a medical condition or this instruction, always ask your healthcare professional. [employer] disclaims any warranty or liability for your [...] Carrasquillo MD - 05/07/2020 10:49 AM EST [facility] Operative Note Patient Name: Zander Waldron : [id number] MR#: [id number] Case Date: 05/07/2020 Surgeon: Surgeon(s) and Role: [...] is documented under the Procedure section of [facility]. documented in this encounter Plan of Treatment [...] 05/07/2020 AM EST 11:54 AM EST Narrative [facility] - 05/07/2020 11:54 AM EST Specimen requisition ordered. ??Separate Pathology report to follow Rc Carrasquillo MD PATHOLOGY/CYTOLOGY ORDERABLE S Performing Organization Address City/State/ZIP Code Phon e Number [place] [phone] Specimen to Pathology (05/07/2020 11:54 AM EST) Specimen Anatomical Collection Method Collection Time Receive d Time (Source) Location / / Volume Laterality AP Specimen 05/07/2020 11:54 05/07/2020 AM EST 11:54 AM EST Narrative [facility] OR - 05/07/2020 11:54 AM EST Specimen requisition ordered. ??Separate Pathology report to follow Rc Carrasquillo MD PATHOLOGY/CYTOLOGY ORDERABLE S Performing Organization Address City/[facility]/[place] [address] Specimen to Pathology (05/07/2020 11:54 AM EST) Specimen Anatomical Collection Method Collection Time Receive d Time (Source) Location / / Volume Laterality AP Specimen 05/07/2020 11:54 05/07/2020 AM EST 11:54 AM EST Narrative [facility] - 05/07/2020 11:54 AM EST Specimen requisition ordered. ??Separate Pathology report to follow Rc Carrasquillo MD PATHOLOGY/CYTOLOGY ORDERABLE S Performing Organization Address City/[facility] [place] [address] COLONOSCOPY (05/07/2020 9:25 AM EST) [facility] Method Time Signature COLONOSCOPY [facility] Endoscopy Procedure Date: 05/07/2020 9:25 AM ? Patient Name: Zander Waldron ? N: [id number] ? Date of : 1960 ? Age: 59 ? Order #: [id number] ? Instrument Name: [id number] ? Procedure: ? Colonoscopy Indications: ? High risk colon cancer surveillance : ? Personal history of colonic p olyps, ? Incidental - Hematochezia Providers: ? Rc Carrasquillo MD, Elham Weinberg ? Dilip Huitron Referring : ?Brooks Duarte MD, Jewels Braswell ? MD Rcok Medicines: ? Midazolam 2 mg IV, Fentanyl [...] was evaluat ed using ? the BBPS ([place] Bowel Prepar ation ? Scale) with scores [...] entire procedure. ? Rc Carrasquillo MD 05/07/2020 12:17:44 PM This report has been signed electronically. Number of Addenda: 0 Note Initiated On: 05/07/2020 9:25 AM Specimen (Source) Anatomical Collection Method Collection Time Re ceived Time Location / / Volume Laterality 05/07/2020 9:25 AM EST Jewels Wilkerosn MD GENERAL SURGICAL ORDERABLES Performing Organization Address City/State/ZIP Code Phon e Number [facility] UPPER GI ENDOSCOPY (05/07/2020 9:24 AM EST) Component Value Ref Test Analysis Performed At [facility] Range Method Time Signature UPPER GI [facility] ENDOSCOPY Endoscopy Procedure Date: 05/07/2020 9:24 AM ? Patient Name: Zander Waldron ? N: [id number] ? Date of : 1960 ? Age: 59 ? Order #: [id number] ? Instrument Name: [id number] ? Procedure: ? Upper GI endoscopy Indications: [...] Component Value Ref Test Analysis Performed At [facility] Range Method Time Signature Surgical [id number] ? Location: 4T; EA07; A [facility] Report The signing pathologist has [...] Neri MD Verified: ??05/10/2020 ?Pathologist Performed at: ??-[facility] Dept. of Pathology, [place], [place] SPECIMEN(S) SUBMITTED A - sigmoid colon [...] Organization Address City/State/ZIP Code Phon e Number [place] [phone] documented in this encounter Visit Diagnoses Not on filedocumented in this encounter Administered Medications Inactive Administered Medications - up to 3 most recent administrations Medication Order MAR Action Action Date Dose Rate Site lactated ringers infusion New Bag 05/07/2020 9:59 AM EST 100 mL/hr 100 mL/hr 100 mL/hr, Intravenous, CONTINUOUS, Starting on Thu05/07/20 at 1015, Until Thu05/07/20 at 1233, Endoscopy (Day of Procedure) documented in this [...] er: Elham Huitron RN) ONCE PRN, Starting Thu05/07/20 at 1045, U ntil Thu05/07/20 at 1443, Intra-Operative (Intra-Procedure) fentaNYL (pf) (50 mcg/mL) multi-dose injection (CANCELED) 1041 (Given - Provider: Elham Huitron, RN)1045 (Given - Provider: Elham Huitron, RN)1048 (Given - Provider: Elham Huitron, RN)1103 (Given - Provider: Elham Huitron, RN)1132 (Given - Provider: Elham Huitron, RN) ONCE PRN, Starting 05/07/20 at 1041, U ntil 05/07/20 at 1443, Intra-Operative (Intra-Procedure), Routine midazolam (pf) (Versed) (1 mg/mL) multi-dose injection (CANCELED ) 1041 (Given - Provider: Elham Huitron, RN)1045 (Given - Provider: Elham Huitron, RN)1048 (Given - Provider: Elham Huitron, RN)1103 (Given - Provider: Elham Huitron, RN)1131 (Given - Provider: Elham Huitron, RN) ONCE PRN, Starting 05/07/20 at 1041, U ntil Thu05/07/20 at 1443, Intra-Operative (Intra-Procedure), Routine documented in this encounter Care Teams Therapy Manager Relationship Specialty Start Date End Date Brooks Duarte MD PCP - General Family Medicine 05/07/20 03/11/21 [address] [place] [address] documented as of this encounter
--- OUTSIDE RECORDS SUMMARY | 2022-01-27 16:06 | XMS_ITS | Encounter Summary ---
:1960 Author Organization [place] [address] Care Team Providers Name Role Phone Brooks Duarte MD Primary Care Provider [phone] Reason for Visit Reason Comments Headache Leg Pain recent [facility] hospitalization Back Pain Encounter Details Date Type Department Care Team Description 02/26/2021 Emergency Emergency Department Susie Goodman N onintractable headache, Phuong Villa MD unspecified chronicity [facility] pattern, unspecified [facility] DR headache type [facility] EMERGENCY MEDICINE [place] [id number] [phone] [id number] Social History Tobacco Use Types Packs/Day Years Used Date Smoking Tobacco: Former Smokeless Tobacco: Never Alcohol Use Standard Drinks/Week Comments Yes 0 (1 standard drink = 0.6 oz pure alcoho l) about once a month Sex Assigned at Date Recorded Not on file documented as of this encounter Last Filed Vital Signs Vital Sign Reading Time Taken Comments Blood Pressure 111/76 02/26/2021 8:00 PM EST Pulse 83 02/26/2021 8:30 PM EST Temperature 36.3 ??C (97.4 ??F) 02/26/2021 5:35 PM EST Respiratory Rate 21 02/26/2021 8:30 PM EST Oxygen Saturation 93% 02/26/2021 8:30 PM EST Inhaled Oxygen Concentration - - Weight 97.1 kg (214 lb) 02/26/2021 5:35 PM EST Height 174 cm (5' 8.5) 02/26/2021 5:35 PM EST Body Mass Index 32.07 02/26/2021 5:35 PM EST documented in this encounter Discharge Instructions Discharge InstructionsBailey Garrett MD - 02/26/2021 9:33 PM EST You were seen in the ED today for a headache. Your evaluation was reassuring that you do not have anemergent medical process. For your DVTs, you should remain on the Eliquis and follow-up with your PCP about when to stop this. Typically you need to remain on blood thinners for a couple of months to treat the blood clots. Please take all of your medications as scheduled. You should rest appropriately. You should return to the Emergency Department for reevaluation if you are becoming more ill, have fever over 100.4 F, chest pain, difficulty breathing, loss of consciousness, have worsening pain or develop any new symptoms or concerns. AttachmentsThe following attachments cannot be sent through Care Everywhere. Headache (Mozambican)documented in this encounter Medications at Time of [...] for Pain. documented as of this encounter ED Notes Natty Healy RN - 02/26/2021 8:47 PM EST Pt reports pain relief with treatment here in the ED. Plan of care discussed with patient and . Spoke with family clergy on phone as pt requested. Spoke with patient and at length regarding follow up care for DVT. Pt concerned that he may have cancer and is due for a colonoscopy soon. Educated pt about making appt for colonoscopy and appt with PCP for cont. of care. Pt and verbalize understanding. Emotional support given. Bailey Garrett MD - 02/26/2021 6:55 PM EST Zander Waldron is an 60 y.o. male who presents to the ED with: Chief Complaint Patient presents with ??? Headache ??? Leg Pain recent [facility] hospitalization ??? Back Pain HPI Zander Waldron is a 60 y.o. male with a PMH significant for recent bilateral DVTs, hypothyroidism, GERD, who presents to the Emergency Department for headache. Patient reports headache started lastweek on 02/21 after he was admitted to an outside hospital for bilateral DVTs. He says it started after he was started on the heparin drip for his blood clots. Since then the headache has been intermittent. Reports the headache is located the top of his head. There are no aggravating or relieving factors. He has been taking Tylenol without relief. Reports he does not normally get headaches. Denies nausea or vomiting. He has been eating and drinking well. Denies fever. Denies chest pain, shortness ofbreath, abdominal pain. Denies weakness, aphasia, facial droop. Reports paresthesias in the ulnar nerve distribution to his left upper extremity. Denies neck pain. Reports pain in his hips where his DVT is located. Is currently taking Eliquis. He reports he takes ibuprofen almost daily due to chronic pain. Review of Systems: Pertinent positives and negatives are included in the HPI, otherwise at least ten systems were reviewed and negative. ED Triage Vitals [02/26/21 1735] BP: (!) 165/112 Heart Rate: 82 Resp: 16 Temp: 36.3 ??C (97.4 ??F) Temp src: Temporal SpO2: 99 % O2 Device: RA O2 Flow Rate (L/min): n/a Physical Exam: Physical Exam General: AOx3, no acute distress HENT: head normocephalic, atraumatic Mouth: moist oral mucosa Neck: soft, supple, trachea midline CV: regular rate and rhythm, extremities well-perfused, no lower extremity edema Pulm: lungs clear to auscultation bilaterally, symmetric chest rise, nonlabored breathing Abd: soft, nontender to palpation, nondistended MSK: moves all extremities Skin: Warm, dry, pink Neuro: no focal deficits, cranial nerves II through X intact, strength and sensation intact Psych: appropriate mood and affect ED Course: - Patient was evaluated and discussed with Dr. Goodman - Medications, allergies, past medical history, surgical history, family history, and social historywere reviewed ED Course: ED Course as of 02/26/212306Feb 26, [id number] Patient reported his headache had improved. Was asking about getting his colonoscopy scheduled.Discussed that he should call gastroenterology tomorrow about scheduling this. - Medications and fluids administered: Medications ketorolac (Toradol) (30 mg/mL) injection 15 mg (15 mg Intravenous Given 02/26/211939) prochlorperazine (Compazine) (5 mg/mL) injection 10 mg (10 mg Intravenous Given 02/26/211942) diphenhydrAMINE (Benadryl) (50 mg/mL) injection 50 mg (50 mg Intravenous Given 02/26/211933) magnesium sulfate 1 g in dextrose 5% 100 mL infusion (0 g Intravenous Stopped 02/26/212040) - I have reviewed imaging, which is significant for: CT Head wo Contrast (Generic) Final Result No acute findings. Normal CT of the brain. Ossification of the dura is a frequent normal finding. Thank you for letting us participate in the care of this patient. If you are a health care provider and have any questions regarding this report, please contact the number below. For patients who have questions please contact the health urgent care that requested your imaging first. Electronically signed by: Balbir Aguirre MD, [facility] ([phone]), at 02/26/2021 7:14 PM Assessment and Plan: MDM: 60 y.o. male who presents for headache x1 week after being admitted to an outside hospital for lower extremity DVTs and starting anticoagulation. His vital signs were normal. He was very well-appearing on exam. His neuro exam was normal. He did have some tingling in the ulnar nerve distribution to his left upper extremity. Denied any neck pain, fever, known cancer, or weakness. Since he recentlystarted anticoagulation and does not normally get headaches, a CT head was done which was unremarkable. He was given a migraine cocktail with resolution of his symptoms. He has been taking ibuprofen almost daily for pain and he may be having rebound headaches from this. Patient had multiple questions about his anticoagulation. Discussed that he will need to remain on the Eliquis likely for a couple of months for treatment of the blood clots and that he should follow-up with his PCP for this. Patient was hemodynamically stable and within normal limits while in the ED. The disposition and follow-up plan were discussed. Return precautions were verbally discussed with the patient. The patient expressed understanding that they could come back to the ED at any time. Plan: - Discharge home - Follow up with PCP for continued management of his DVTs - Return precautions were discussed with the pt Bailey Garrett MD Resident 02/26/212312 Associated attestation - Susie Goodman MD - 03/21/2021 11:27 AM EST ED ATTENDING ATTESTATION NOTE The patient was seen in conjunction with the resident physician. I have independently performed the hooker portions of the history and physical exam. I have reviewed the nursing notes, vital signs, and all diagnostic studies personally including labs, imaging studies and EKGs. I have discussed the details of the case with the resident and agree with the assessment and plan as described in the resident note below and amended by me as indicated. Dimitrios Bailon APRN - 02/26/2021 5:32 PM EST Brief Provider Triage Note 60 y.o. male presents to the emergency department with concern for worsening blood clot. Discharged recently from [facility] after evaluation and diagnosis for blood clot in pelvis. Now having increased pain in legs, tingling. Also paresthesias in left arm. Having LBP as well. Also having headache and hyperse nsitivity of scalp. Tylenol not helping. Currently on apixaban. Also think she has IVC filter, was surprised to hear he had one. Not vaccinated against COVID19, does not want to be. Brief focused physical exam notable for alert male, speech clear, NAD, even respirations. BP (!) 165/112 (BP Location (NBP): Left arm, Patient Position: Sitting) Pulse 82 Temp 36.3 ??C (97.4 ??F) (Temporal) Resp 16 Ht 174 cm (5' 8.5) Wt 97.1 kg (214 lb) SpO2 99% BMI 32.07 kg/m?? Plan: labs, U/A with reflex culture and EKG Records requested from [facility] Patient requires further evaluation, diagnosis and management in the emergency department. PPE worn during this encounter: N95 mask and Plastic safety goggles Dimitrios Bailon APRN 02/26/21 7470 documented in this encounter Miscellaneous Notes ED Triage - Rosemary Parra RN - 02/26/2021 5:36 PM EST Pt with recent hospitalization for blood clot in pelvic region, swelling to legs, on thinners, pt now with increase in s/s, now left arm n/t, no CP/SOB, Pt is unvaccinated for COVID and pt defer getting vax, recent COVID- at OSH, increased in headache pain, can't take IBU r/t thinner and tylenol doesn't 'touch pain', headache to front and top of head, no trauma, educated to no visitor policy. HPI (Adult) Stated Reason for Visit: recent d/c from [facility] on 02/24, pain in hip/upper thighs, persistent headache, numbness/tingling to left arm, blood clot in pelvis, went to OSH after swelling from groin to feet,no SOB/CP, VSS, unvax. History Obtained From: patient Precipitating Event(s): none Onset of Symptoms: worsening Duration (Days): 6 documented in this encounter Plan of Treatment Pending Results Name Type Priority Associated Diagnoses Date/Ti me EKG 12 Lead ECG Routine 02/26/2021 5:47 PM EST documented as of this encounter Procedures Procedure Name Priority Date/Time Associated Comments Diagnosis CT HEAD WO CONTRAST STAT 02/26/2021 6:50 PM Re sults for this (GENERIC) EST procedure are i n the results section. HEMOGRAM STAT 02/26/2021 6:25 PM Results f or this EST procedure are i n the results section. DIFFERENTIAL, AUTOMATED STAT 02/26/2021 6:25 PM Results for this EST procedure are i n the results section. GOLD TUBE HOLD STAT 02/26/2021 6:25 PM Results for this EST procedure are i n the results section. HC PARTIAL STAT 02/26/2021 6:25 PM Results f or this THROMBOPLASTIN TIME EST procedur e are in the results section. HC PROTHROMBIN TIME STAT 02/26/2021 6:25 PM Re sults for this EST procedure are i n the results section. HC CBC,PLT & AUTO DIFF STAT 02/26/2021 6:25 PM EST BASIC METABOLIC PANEL STAT 02/26/2021 6:25 PM Results for this (NON-FASTING) EST procedure are in the results section. EKG 12-LEAD Routine 02/26/2021 5:47 PM EST EKG 12-LEAD STAT 02/26/2021 5:47 PM Results f or this EST procedure are i n the results section. documented in this encounter Results CT Head wo Contrast (Generic) (02/26/2021 6:50 PM EST) Anatomical Region Laterality Modality Head Computed Tomography Specimen (Source) Anatomical Collection Method Collection Time Re ceived Time Location / / Volume Laterality 02/26/2021 7:10 PM EST Impressions 02/26/2021 7:14 PM EST No acute findings. Normal CT of the brai n. Ossification of the dura is a frequent normal finding. Thank you for letting us participate in the care of this patient. ??If you are a health care provider and have any questi ons regarding this report, please contact the number below. ??For patients who have questions please contact the health urgent care that requested your imaging first. ? Electronically signed by: Balbir torres MD, [facility] ([phone]), at 02/26/2021 7:14 PM Narrative 02/26/2021 7:14 PM EST EXAMINATION: CT HEAD WO CONTRAST (GENERIC) CLINICAL HISTORY: Headache, chronic, wit h new features TECHNIQUE: CT Head was performed without contrast COMPARISON: None FINDINGS: Calvarium shows no fractures. No destructive lesions are identified. A few ossifications are noted along the fa lx, a 1 normal finding. No intracranial hemorrhage is identified brain volume is normal. Ventricles and cisterns are normal. Midline structures appear normal. Procedure Note Balbir Aguirre MD - 02/26/2021Forma tting of this note might be different from the original. EXAMINATION: CT HEAD WO CONTRAST (GENERI C) CLINICAL HISTORY: Headache, chronic, wit h new features TECHNIQUE: CT Head was performed without contrast COMPARISON: None FINDINGS: Calvarium shows no fractures. No destructive lesions are identified. A few ossifications are noted along the fa lx, a 1 normal finding. No intracranial hemorrhage is identified brain volume is normal. Ventricles and cisterns are normal. Midline structures appear normal. IMPRESSION No acute findings. Normal CT of the brai n. Ossification of the dura is a frequent normal finding. Thank you for letting us participate in the care of this patient. If you are a health care provider and have any questi ons regarding this report, please contact the number below. For patients w ho have questions please contact the health urgent care that requested your imaging first. Electronically signed by: Balbir torres MD, [facility] ([phone]), at 02/26/2021 7:14 PM Susie Goodman MD IMG CT ORDERABLES Gold Tube HOLD (02/26/2021 6:25 PM EST) P athologist Signature Gold Hold Sample in [facility]. [facility] Specimen Anatomical Collection Method Collection Time Receive d Time (Source) Location / / Volume Laterality Blood Venous Draw / 02/26/2021 6:25 PM 02/27/20 6:36 Unknown EST PM EST Dimitrios Jefrymichellea TERMINAL MANAGER CHEMISTRY ORDERABLES Performing Organization Address City/State/[place] [address] (ABNORMAL) Differential, Automated (02/26/2021 6:25 PM EST) [facility] Method Time Signature Neutrophils % 65.8 % [facility] Neutr Abs (ANC) 6.43 (H) 1.70 - [facility] 6.10 [facility] x10(3)/[facility] LABORATORY Lymphocytes % 18.5 % [facility] Lymphocytes Abs 1.8 0.9 - 3.2 [facility] x10(3)/[facility] LABORATORY Monocytes % 13.6 % [facility] Monocyte Abs 1.3 (H) 0.3 - 0.9 [facility] x10(3)/[facility] LABORATORY Eosinophils % 1.3 % [facility] Eosinophils Abs 0.1 0.0 - 0.4 [facility] x10(3)/[facility] LABORATORY Basophils % 0.4 % [facility] Basophils Abs 0.0 0.0 - 0.1 [facility] x10(3)/[facility] LABORATORY Immature Gran % 0.40 % [facility] Comment: Immature granulocytes(IG's)percentage an d absolute count will include metamyelocytes, myelocytes, and promyelo cytes. Blood smears from CBCs yielding IG's will be scanned manually for concor dance. If this scan disagrees with the automated IG or if promyelocytes are not ed, a manual differential will be performed. Lata Gran Abs 0.04 0.00 - 0.04 x10(3)/[facility] MAR Y [facility] Specimen Anatomical Collection Method Collection Time Receive d Time (Source) Location / / Volume Laterality Blood 02/26/2021 6:25 PM 6:34 EST PM EST Resulting Agency Comment Spec In Lab Dimitrios Bailon APRN HEMATOLOGY ORDERABLES Performing Organization Address City/State/[place] [address] (ABNORMAL) Hemogram (02/26/2021 6:25 PM EST) Analysis Performed At Patho logist Time Signature WBC 9.8 (H) 4.0 - 9.5 [facility] x10(3)/[facility] LABORATORY RBC 3.86 (L) 4.58 - [facility] 5.54 [facility] x10(6)/[facility] LABORATORY Hemoglobin 11.5 (L) 13.7 - [facility] 16.5 g/dL [facility] Hematocrit 34.8 (L) 40.5 - [facility].5 % [facility] MCV 90.2 82.9 - [facility] 93.1 [facility]AT[facility] MCH 29.8 27.5 - [facility] 32.[address] [facility] MCHC 33.0 32.0 - [facility] 35.7 g/dL [facility] Platelets 397 (H) 145 - 357 [facility] x10(3)/[facility] LABORATORY RDWSD 42.8 36.0 - [facility] 45.0 [facility] LABORATORY RDWCV 13.0 11.4 - [facility] 13.8 % [facility] MPV 9.1 7.6 - 12.9 [facility] LABORATORY nRBC % Auto 0.0 % [facility] nRBC Abs Auto 0.000 0.000 - [facility] 0.000 [facility] x10(3)/[facility] LABORATORY Specimen Anatomical Collection Method Collection Time Receive d Time (Source) Location / / Volume Laterality Blood 02/26/2021 6:25 PM 6:34 EST PM EST Resulting Agency Comment Spec In Lab Dimitrios Bailon APRN HEMATOLOGY ORDERABLES Performing Organization Address City/State/[place] [address] (ABNORMAL) Prothrombin Time (02/26/2021 6:25 PM EST) P athologist Signature PT 17.2 (H) 9.4 - 12.5 [facility] LABORATORY INR 1.5 [facility] Comment: An INR <2.0 [...] (Source) Location / / Volume Laterality Blood 02/26/2021 6:25 PM 6:34 EST PM EST Resulting Agency Comment Spec In Lab Dimitrios Cappsdcsteven GONZALESN HEMATOLOGY ORDERABLES Performing Organization Address City/[facility]/[place] [address] APTT (02/26/2021 6:25 PM EST) P athologist Signature PTT 35 25 - 37 sec [facility] Comment: The PTT is NOT appropriate for heparin m onitoring. Use the Anti-Xa level for heparin monitoring (HEP UFH) or LMWH mon itoring (HEP LMW). A PTT less than 37 seconds generally indicates adequate hem ostasis. Specimen Anatomical Collection Method Collection Time Receive d Time (Source) Location / / Volume Laterality Blood 02/26/2021 6:25 PM 6:34 EST PM EST Resulting Agency Comment Spec In Lab Dimitrios Bailon APRN HEMATOLOGY ORDERABLES Performing Organization Address City/State/[place] [address] (ABNORMAL) Basic Metabolic Panel (non-fasting) (02/26/2021 6:25 PM EST) P athologist Signature Glucose Lvl 92 65 - 199 [facility] mg/dL [facility] Comment: Diabetes: >=200 mg/dL plus symp toms BUN 12 10 - 20 mg/dL [facility] Creatinine 0.67 (L) 0.80 - 1.50 mg/dL [facility] Sodium 137 135 - 145 mmol/L [facility] Potassium 4.1 3.5 - 5.0 mmol/L [facility] Comment: Please note: ??Patients with WBC >100,00 0 may have falsely elevated Potassium levels. ??For accurate Potassium quantif ication in these patients send serum separator tube (gold top) for subsequent determinations. ??Contact the Clinical Chemistry Laboratory if there are any qu estions. Chloride 99 98 - 107 mmol/L [facility] CO2 27 22 - 31 mmol/L [facility] Anion Gap 11 5 - 15 mmol/L [facility] Calcium 9.3 8.5 - 10.5 mg/dL [facility] Estimated GFR 104 >=60 mL/min/1.73 m?? [facility] Comment: This patient? s estimated glomerular filtration rate (eGFR) is between 104 mL/min/1.73 m2 (patients with less muscl e mass per kg body weight) and 120 mL/min/1.73 m2 (patients with more muscl e [...] (Source) Location / / Volume Laterality Blood 02/26/2021 6:25 PM 6:34 EST PM EST Resulting Agency Comment Spec In Lab Dimitrios Bailon APRN CHEMISTRY ORDERABLES Performing Organization Address City/State/[place] [address] EKG 12 Lead (02/26/2021 5:47 PM EST) [facility] gist Method Time Signature Ventricular rate 84 BPM MUSE SYSTEM Atrial Rate 84 BPM MUSE SYSTEM P-R Interval 150 ms MUSE SYSTEM QRS Duration 88 ms MUSE SYSTEM Q-T Interval 360 ms MUSE SYSTEM QTC Calculated 425 ms MUSE SYSTEM (Bezet) Calculated P [place] 16 degrees MUSE SYSTEM Calculated R [place] -9 degrees MUSE SYSTEM Calculated T [place] 33 degrees MUSE SYSTEM INTERPRETATION Normal sinus rhythm MUSE SYSTEM Normal ECG No previous ECGs available Confirmed by Eleuterio Barros ([id number]) on 02/27/2021 9:28 :20 AM Specimen Anatomical Collection Method Collection Time Receive d Time (Source) Location / / Volume Laterality 02/26/2021 5:47 PM 9:28 EST AM EST Dimitrios Bailon APRN ECG ORDERABLES Performing Organization Address City/State/ZIP Code Phon e Number MUSE SYSTEM documented in this encounter Visit Diagnoses Diagnosis Nonintractable headache, unspecified chr onicity pattern, unspecified headache type documented in this encounter Administered Medications Inactive Administered Medications - up to 3 most recent administrations Medication Order MAR Action Action Date Dose Rate Site diphenhydrAMINE (Benadryl) (50 Given 02/26/2021 7:34 PM EST 50 m g mg/mL) injection 50 mg 50 mg, Intravenous, ONCE, 1 dose, On Thu02/26/21 at 1838, STAT ketorolac (Toradol) (30 mg/mL) injection 15 mg Given 02/26/2021 7:40 PM EST 15 mg 15 mg, Intravenous, ONCE, 1 dose, On Thu02/26/21 at 1838, STAT magnesium sulfate 1 g in dextrose 5% New Bag 02/26/2021 7:41 P M EST 1 g 100 mL/hr 100 mL infusion 1 g, Intravenous, ONCE, 1 dose, On Thu02/26/21 at 1838, Administer over 60 Minutes prochlorperazine (Compazine) (5 mg/mL) Given 02/26/2021 7:43 PM EST 10 mg injection 10 mg 10 mg, Intravenous, ONCE, 1 dose, On Thu02/26/21 at 1838, STAT documented in this encounter Active and Recently Administered Medications Times are shown in EST. Scheduled Medication Order 02/24/2021 02/25/2021 02/26/2021 diphenhydrAMINE (Benadryl) (50 mg/mL) injection 50 mg (COMPLETED ) 1933 (Given - Provider: Natty Healy RN) 50 mg, Intravenous, ONCE, 1 dose, On Thu02/26/21 at 1838, STAT ketorolac (Toradol) (30 mg/mL) injection 15 mg (COMPLETED) 1939 (Given - Provider: Natty Healy RN) 15 mg, Intravenous, ONCE, 1 dose, On Thu02/26/21 at 1838, STAT magnesium sulfate 1 g in dextrose 5% 100 mL infusion (COMPLETED) 1940 (New Bag - Provider: Natty Healy RN)2040 (Stopped - Provider: Natty Healy RN) 1 g, Intravenous, ONCE, 1 dose, On Thu04/29/20 at 1838, Administer over 60 Minutes prochlorperazine (Compazine) (5 mg/mL) injection 10 mg (COMPLETE D) 1942 (Given - Provider: Natty Healy RN) 10 mg, Intravenous, ONCE, 1 dose, On Thu02/26/21 at 1838, STAT documented in this encounter Care Teams [employer] Supervisor Relationship Specialty Start Date End Date Brooks Duarte MD PCP - General Family Medicine 05/07/20 03/11/21 [address] [place] [address] documented as of this encounter
--- OUTSIDE RECORDS SUMMARY | 2022-01-27 16:06 | XMS_ITS | Encounter Summary ---
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 [place] [address] [place] [address] [facility] [place], [place] [address] Social History Tobacco Use Types Packs/Day Years Used Date Smoking Tobacco: Former Smokeless Tobacco: Never Alcohol Use Standard Drinks/Week Comments Not Currently 0 (1 standard drink = 0.6 oz pure alcoho l) about once a month Sex Assigned at Date Recorded Not on file documented as of this encounter Last Filed Vital Signs Vital Sign Reading Time Taken Comments Blood Pressure 103/79 03/11/2021 5:40 PM EST Pulse 76 03/11/2021 5:10 PM EST Temperature 36.1 ??C (97 ??F) 03/11/2021 3:09 PM EST Respiratory Rate 15 03/11/2021 5:40 PM EST Oxygen Saturation 92% 03/11/2021 5:40 PM EST Inhaled Oxygen Concentration - - Weight 86.2 kg (190 lb) 03/11/2021 3:09 PM EST Height - - Body Mass Index 28.47 02/26/2021 5:35 PM EST documented in this encounter Discharge Instructions AttachmentsThe following attachments cannot be sent through Care Everywhere.EGD (Upper Endoscopy): Post-op (Zimbabwean)Colonoscopy: Post-op (Zimbabwean)documented in this encounter Medications at Time of [...] Component Value Ref Test Analysis Performed At [facility] Range Method Time Signature Surgical [id number] ? Location: 4; [facility]; [facility] Report The signing pathologist has (i) examined the relevant preparation(s) for the [facility] specimen(s) and (ii) rendered or confirmed the diagnosis(es) . HOSPITAL LABORATORY . ?Surgic al Pathology DIAGNOSIS A - Z-line, biopsy (Multiple): - ??Gastric fundic mucosa with focal dilated glands, n egative for intestinal metaplasia. Electronically signed by: ?Grey LOPEZ, Love Verified: ??03/15/2021 19:23 ??Pathologist Performed at: ??-[facility] Dept. of Pathology, [place], [place] SPECIMEN(S) SUBMITTED A - Z-line, biopsy [...] MD PATHOLOGY/CYTOLOGY ORDERABLE S Performing Organization Address City/[facility]/[place] [address] Specimen to Pathology (03/11/2021 5:08 PM EST) Specimen Anatomical Collection Method Collection Time Receive d Time (Source) Location / / Volume Laterality AP Specimen 03/11/2021 5:08 PM 5:08 EST PM EST Narrative [facility] - 03/11/2021 5:08 PM EST Specimen requisition ordered. ??Separate Pathology report to follow Titi Stroud MD PATHOLOGY/CYTOLOGY ORDERABLE S Performing Organization Address City/[facility]/[place] [address] UPPER GI ENDOSCOPY (03/11/2021 4:21 PM EST) Component Value Ref Test Analysis Performed At [facility] gist Range Method Time Signature UPPER GI [facility] ENDOSCOPY Endoscopy Procedure Date: 03/11/2021 4:21 PM ? Patient Name: Zander Waldron ? Date of : 1960 ? Age: 60 ? Order #: [id number] ? Instrument Name: [id number] ? Procedure: ? Upper GI endoscopy Indications: ? Heartburn Patient Profile: ? 60 yo M with GERD presents for EGD. Providers: ? Fredy Ji, JOSE ELIAS, ? Fabian Kinney Referring MD: ?Brooks Duarte [...] the physician, the nurse and the ? home appliance technician in the pre-procedu re area ? [...] Component Value Ref Test Analysis Performed At [facility] Method Time Signature COLONOSCOPY [facility] Endoscopy Procedure Date: 03/11/2021 4:21 PM ? Patient Name: Zander Waldron ? N: [id number] ? Date of : 1960 ? Age: 60 ? Order #: [id number] ? Instrument Name: [id number] ? Procedure: ? Colonoscopy Indications: ? High risk colon cancer surveillance : ? Personal history of colonic p olyps Patient Profile: ? 60 yo M presents for surveillance of ? 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 ago and polyp within a divert iculum. ? Recent bilateral DVT of unkno wn ? etiology on apixiban, held 2 days ? prior to procedure. Providers: ? Titi Stroud, Fredy Valencia, RN, ? Fabian Kinney Referring MD: ?Brooks [...] the physician, the nurse and the ? home appliance technician in the pre-procedu re area ? [...] Rate Site lactated ringers infusion New Bag 03/11/2021 3:20 PM EST 100 mL/hr 100 mL/hr 100 mL/hr, Intravenous, CONTINUOUS, Starting on Thu03/11/21 at 1530, Until Thu03/11/21 at 1958, Endoscopy (Day of Procedure) documented in this [...] spray (re stricted to mikel-procedural use) (CANCELED) 163 (Given - Provid er: Fredy Valencia RN) ONCE PRN, Starting on Thu03/11/21 at 163 8, Until Thu03/11/21 at 1957, Intra- Operative (Intra-Procedure) diphenhydrAMINE (Benadryl) (50 mg/mL) injection (CANCELED) 165 (Given - Provider: Fredy Valencia RN) ONCE PRN, Starting on Thu03/11/21 at 165 9, Until Thu03/11/21 at 1957, Intra- Operative (Intra-Procedure), Routine fentaNYL (pf) (50 mcg/mL) multi-dose injection (CANCELED) 1633 (Given - Provider: Fredy Valencia RN)1636 (Given - Provider: Fredy Valencia RN)1639 (Given - Provider: Fredy Valencia RN)1642 (Given - Provider: Fredy Valencia RN)165 (Given - Provider: Fredy Valencia RN) ONCE PRN, Starting on Thu03/11/21 at 163 9, Until Thu03/11/21 at 195, Intra- Operative (Intra-Procedure), Routine midazolam (pf) (Versed) (1 mg/mL) multi-dose injection (CANCELED ) 1633 (Given - Provider: Fredy Valencia RN)1636 (Given - Provider: Fredy Valencia RN)1639 (Given - Provider: Fredy Valencia RN)1642 (Given - Provider: Fredy Valencia RN)1659 (Given - Provider: Fredy Valencia RN) ONCE PRN, Starting on Thu03/11/21 at 163 9, Until Thu03/11/21 at 1957, Intra- Operative (Intra-Procedure), Routine documented in this encounter Care Teams Security Architect Relationship Specialty Start Date End Date Brooks Duarte MD PCP - General Family Medicine 05/07/20 03/11/21 [address] [place] [address] documented as of this encounter
--- OUTSIDE RECORDS SUMMARY | 2022-01-27 16:06 | XMS_ITS | Encounter Summary ---
:1960 Author Organization [facility] [place] [address] Care Team Providers Name Role Phone Unavailable Primary Care Provider Unavailable Reason for Visit Auth/Cert Specialty Diagnoses / Procedures Referred By Contact Refer red To Contact Diagnoses Second degree hemorrhoids INTERNAL HEMORRHOIDS Procedures PRO HEMORRHOIDECTOMY, INT/EXT, COMPLX HEMORRHOIDECTOMY, INTERNAL & EXTERNAL, COMPLEX (WRVU 6.73) Referral ID Status Reason Start Date Expiration Date Visits Requ ested Visits Authorized [id number] 1 1 Encounter Details Date Type Department Care Team Description 10/28/2016 Anesthesia Event Outpatient Surgery Antony Betancur MD [facility] [place] [address] [place] [address] [phone] Anesthesia Record Procedure Summary Procedure Name Responsible Anesthesia Start Anesthesia Stop Time Anesthesiologist Time HEMORRHOIDECTOMYPipe Rebecca E, MD 10/28/16 1235 10/28/16 1313 INTERNAL & EXTERNAL, COMPLEX (WRVU 6.73) (Perineum) Events Date Time Event Comment 10/28/2016 1205 1235 Start 1236 AN Verify 1237 An Start Data 1238 An Induction 1241 An Intubation 1244 Anesthesia Ready 1313 Extubation/LMA Out 1313 an stop data 1313 Recovery or ICU Handoff Patient care was transferred to the destination unit staff after review of the patient's medica l history, current anesthetic/surgi emilee status and plan, according to the Provider Handoff Checklist. 1313 Stop Name Total Midazolam 2 mg fentaNYL 100 mcg IV Lidocaine 60 mg Propofol 200 mg ePHEDrine 10 mg Ondansetron 8 mg Dexamethasone 8 mg Succinylcholine 100 mg Propofol INF 102.38 mg Ketorolac 30 mg lactated Ringers infusion 1,000 mL 0 mL Agents Name O2 Air N2O Sevoflurane (et) Blood No blood administrations on file. Lines, Drains, and Airways Type Details Placement Removal ETT Mask Ventilation: Easy (1); 10/28/16 1246 by Judah rogers, 10/28/16 1313 by ETT Type: Cuffed; ETT Size: TORY Edmonds Heather S, 7.5 mm; Mac Blade: 4; Notes: CRN A Asleep, Cricoid Pressure, Stylette; Attempts: 1; Laryngoscopy Grade: 1; ETT Placement Verified By: Auscultation, Capnometry, Visual; Secured at Teeth: 23 cm; Inserted by: Maame Incision 10/28/16; 1251; perirectal; 10/28/16 1251 by [id number] by 03/01/21; 1144 Enid Ram RN McDevitt, Chelsea A, RN PIV 10/28/16; 1252; metacarpal 10/28/16 1252 by Kelley stevens, 10/28/16 1434 by Nayana, vein (top of hand), left; 20 TORY Edmonds RN gauge; 10/28/16; 1434 documented in this encounter Social History Tobacco Use Types Packs/Day Years Used Date Smoking Tobacco: Never Assessed Sex Assigned at Date Recorded Not on file documented as of this encounter OR Notes Anesthesia Postprocedure Evaluation - Alaina Betancur MD - 10/28/2016 2:29 PM EDT [facility]esthesiology Post-procedure Note Patient: Zander Waldron Procedure Summary Date Anesthesia Start Anesthesia Stop Room / Location 10/28/16 1235 1313 [facility] OR [address] [place] [address] [facility] Procedure Diagnosis Surgeon Responsible Provider HEMORRHOIDECTOMY, INTERNAL & EXTERNAL, COMPLEX (WRVU 6.73) (N/A Perineum) (Internal hemorrhoids) Matt Sullivan MD Evans, Rebecca E, MD All Anesthesia Providers: Anesthesiologist: Alaina Betancur MD RADIO MESSAGE ROUTER: Pamella Isabel CRNA Last (1hr) Vitals: BP 135/78 (10/28/16 1334) Temp Pulse 79 (10/28/16 1405) Resp 20 (10/28/16 1405) SpO2 96 % (10/28/16 1405) Patient Location: PACU/[facility] Level of Consciousness: Awake and Alert Pain Management: Satisfactory Analgesia PONV: None Cardiovascular Status: At Baseline and Hemodynamically Stable Respiratory Status: At Baseline and Room Air Postoperative Fluid Status: Intravascular EUvolemia Possible Anesthetic Complications: NONE apparent at time of evaluation Final Primary Anesthesia Type: General (The anesthetic type performed was the same as planned.) Comments: ALAINA BETANCUR MD Anesthesia Preprocedure Evaluation - Alaina Betancur MD - 10/27/2016 3:56 PM EDT Pre-Anesthesia Evaluation for: Zander Waldron a 56 y.o. male. Procedure(s): HEMORRHOIDECTOMY, INTERNAL & EXTERNAL, COMPLEX (WRVU 6.73) There are no active problems to display for this patient. No past medical history on file. No past surgical history on file. Social History Substance Use Topics ??? Smoking status: Not on file ??? Smokeless tobacco: Not on file ??? Alcohol use Not on file History Drug Use Not on file No Known Allergies Medications: MAR and/or home medications have been reviewed. Physical Exam: There were no vitals filed for this visit. There is no height or weight on file to calculate BMI. Airway Assessment: Mallampati: I TM distance: >3 FB Neck ROM: full Cardiovascular Assessment: Rhythm: regular Rate: normal cardiovascular exam normal Pulmonary Assessment: breath sounds clear to auscultation pulmonary exam normal Dental Assessment: - normal exam Misc Assessment: Patient is wearing No contact(s). IV access: Peripheral line Anesthesia Plan: ASA 2 general, with a(n) intravenous induction Zander Waldron is a 56 y.o. male presenting for internal hemorrhoidectomy. Problem list: Hypothyroidism GERD Labs: No results for input(s): INR in the last 168 hours. No results found for: NA, K, CL, CO2, BUN, CREATININE, GLUCOSE Past anesthesia history: No prior anesthetics in eDH; no history of complications with anesthesia. Last PO intake: Food last evening; water at 08:00. No recent fever, cold, cough, chest pain, shortness of breath, seizure, or weakness. Patient can climb 2 flights of stairs. Plan for general endotracheal anesthesia. Risks and benefits discussed with the patient. All questions answered. Region - Other Informed Consent: Anesthetic plan and risks discussed with patient and spouse. Plan discussed with RADIO MESSAGE ROUTER. PAT Staff Note documented in this encounter Plan of Treatment Not on filedocumented as of this encounter Visit Diagnoses Not on filedocumented in this encounter Administered Medications Inactive Administered Medications - up to 3 most recent administrations Medication Order MAR Action Action Date Dose Rate Site dexamethasone (DECADRON) injection Given 10/28/2016 12:45 PM EDT 8 mg PRN, Starting on Thu10/28/16 at 1245, Until Thu10/28/16 at 1313, Anesthesia Intra-op, Routine ePHEDrine 5 mg/mL multi-dose injection Given 10/28/2016 12:53 PM EDT 10 mg PRN, Starting on Thu10/28/16 at 1253, Until Thu10/28/16 at 1313, Anesthesia Intra-op, Routine fentaNYL 50 mcg/mL multi-dose injection Given 10/28/2016 12:48 PM EDT 100 mcg PRN, Starting on Thu10/28/16 at 1248, Until Thu10/28/16 at 1313, Pain, Anesthesia Intra-op, Routine ketorolac (TORADOL) injection Given 10/28/2016 1:05 PM EDT 30 mg PRN, Starting on Thu10/28/16 at 1305, Until Thu10/28/16 at 1313, Pain, Anesthesia Intra-op, Routine lactated Ringers infusion 1,000 mL New Bag 10/28/2016 12:20 PM EDT 1,000 mL, at 100 mL/hr, Intravenous, CONTINUOUS, Starting on Thu10/28/16 at 1130, Until Thu10/28/16 at 1434, Day of Surgery (Day of Procedure) lidocaine (PF) (XYLOCAINE) 100 mg/5 mL (2 %) Given 12:39 PM EDT 60 mg injection PRN, Starting on Thu10/28/16 at 1239, Until Thu10/28/16 at 1313, Anesthesia Intra-op, Routine midazolam (PF) (VERSED) 1 mg/mL multi-dose Given 10/28/2016 12:3 6 PM EDT 2 mg injection PRN, Starting on Thu10/28/16 at 1236, Until Thu10/28/16 at 1313, Sleep, Anesthesia Intra-op, Routine ondansetron (ZOFRAN) injection Given 10/28/2016 1:05 PM EDT 8 mg PRN, Starting on Thu10/28/16 at 1305, Until Thu10/28/16 at 1313, Nausea, Anesthesia Intra-op, Routine propofol (DIPRIVAN) 10 mg/mL bolus injection Given 12:39 PM EDT 200 mg (Anesthesia) PRN, Starting on Thu10/28/16 at 1239, Until Thu10/28/16 at 1313, Anesthesia Intra-op propofol (DIPRIVAN) infusion New Bag 10/28/2016 12:44 PM 50 mcg/kg/min 29.3 mL/hr CONTINUOUS PRN, Starting on EDT Thu10/28/16 at 1244, Until Thu10/28/16 at 1313, Anesthesia Intra-op, Routine succinylcholine (ANECTINE) injection Given 10/28/2016 12:39 PM EDT 100 mg PRN, Starting on Thu10/28/16 at 1239, Until Thu10/28/16 at 1313, Anesthesia Intra-op, Routine documented in this encounter
--- OUTSIDE RECORDS SUMMARY | 2022-01-27 16:06 | XMS_ITS | Encounter Summary ---
:1960 Author Organization [facility] [place] [address] Care Team Providers Name Role Phone Unavailable Primary Care Provider Unavailable Encounter Details Date Type Department Care Team Description 12/04/2016 Orders Only General Surgery at [facility] Rosemary Jackson, [place] [address] Social History Tobacco Use Types Packs/Day Years Used Date Smoking Tobacco: Former Smokeless Tobacco: Never Sex Assigned at Date Recorded Not on file documented as of this encounter Plan of Treatment Not on filedocumented as of this encounter Visit Diagnoses Not on filedocumented in this encounter
--- OUTSIDE RECORDS SUMMARY | 2022-01-27 16:06 | XMS_ITS | Encounter Summary ---
:1960 Author Organization [facility] Address [address] [place] [address] Care Team Providers Name Role Phone Farhan Moss MD Primary Care Provider Encounter Details Date Type Department Care Team Description 03/12/2021 Ancillary Procedure [place] [address] Social History Tobacco Use Types Packs/Day [...] Name Priority Date/Time Associated Diagnosis Comme nts REQUEST FOR 2ND STAT 03/12/2021 6:27 AM Result s for this READ CT ABDOMEN AND EST procedur e are in PELVIS the results section. documented in this encounter Results Request For 2nd Read CT Abdomen & [...] of outside imaging study. * ??Sending Institution [facility] * ??Date of exam 20210221 * ??I believe a reinterpretation of this exam may alter care of Patient. Yes TECHNIQUE: CT of the abdomen and pelvis with intravenous contrast was performed at [facility] on Jan. ??Helical CT images of the abdomen and pelvis were obtained wit h intravenous contrast. ??Per report, the patient received 100 mL Omnipaque 350 in travenous contrast. ??Multiplanar reformats were performed in the sagittal and coronal planes. ??Oral contrast was not administered. COMPARISON: There is no similar prior ex amination provided for comparison. FINDINGS: Crime Scene Technician Images: Noncontributory. Lower chest: Visualized structures withi [...] who have questions please contact the health daytime caregiver that requested your imaging first. ? Electronically signed by: Steven Painting DO, [facility] ([phone]), at 03/12/2021 8:37 AM --------ORIGINAL REPORT -------- EXAMINATION: * ??REQUEST FOR 2ND READ CT ABDOMEN AND PELVIS * ??CT OF THE ABDOMEN AND PELVIS WITH IN TRAVENOUS CONTRAST. CLINICAL HISTORY: 60-year-old male with initially presenting with low back pain right lower extremity is cold and mottle d. ??Request for second interpretation of outside imaging study. * ??Sending Institution [facility] * ??Date of exam 20210221 * ??I believe a reinterpretation of this exam may alter care of Patient. Yes TECHNIQUE: CT of the abdomen and pelvis with intravenous contrast was performed at [facility] on Jan. ??Helical CT images of the abdomen and pelvis were obtained wit h intravenous contrast. ??Per report, the patient received 100 mL Omnipaque 350 in travenous contrast. ??Multiplanar reformats were performed in the sagittal and coronal planes. ??Oral contrast was not administered. COMPARISON: There is no similar prior ex amination provided for comparison. FINDINGS: Crime Scene Technician Images: Noncontributory. Lower chest: Visualized structures withi [...] who have questions please contact the health daytime caregiver that requested your imaging first. ? Electronically signed by: Steven Painting DO, [facility] ([phone]), at 03/12/2021 8:12 AM Impressions 03/12/2021 8:12 [...] who have questions please contact the health daytime caregiver that requested your imaging first. ? Narrative 03/12/2021 8:12 AM EST EXAMINATION: * ??REQUEST FOR 2ND READ CT ABDOMEN AND PELVIS * ??CT OF THE ABDOMEN AND PELVIS WITH IN TRAVENOUS CONTRAST. CLINICAL HISTORY: 60-year-old male with initially presenting with low back pain right lower extremity is cold and mottle d. ??Request for second interpretation of outside imaging study. * ??Sending Institution [facility] * ??Date of exam 20210221 * ??I believe a reinterpretation of this exam may alter care of Patient. Yes TECHNIQUE: CT of the abdomen and pelvis with intravenous contrast was performed at [facility] on Jan. ??Helical CT images of the abdomen and pelvis were obtained wit h intravenous contrast. ??Per report, the patient received 100 mL Omnipaque 350 in travenous contrast. ??Multiplanar reformats were performed in the sagittal and coronal planes. ??Oral contrast was not administered. COMPARISON: There is no similar prior ex amination provided for comparison. FINDINGS: Crime Scene Technician Images: Noncontributory. Lower chest: Visualized structures withi [...] of outside imaging study. * Sending Institution [facility] * Date of exam 20210221 * I believe a reinterpretation of this e xam may alter care of Patient. Yes TECHNIQUE: CT of the abdomen and pelvis with intravenous contrast was performed at [facility] on Jan. Helical CT images of the abdomen and pelvis were obtained wit h intravenous contrast. Per report, the patient received 100 mL Omnipaque 350 in travenous contrast. Multiplanar reformats were performed in the sagittal and coronal planes. Oral contrast was not administered. COMPARISON: There is no similar prior ex amination provided for comparison. FINDINGS: Crime Scene Technician Images: Noncontributory. Lower chest: Visualized structures withi [...] ho have questions please contact the health daytime caregiver that requested your imaging first. Electronically signed by: Steven Painting DO, [facility] ([phone]), at 03/12/2021 8:12 AM Camacho Sevilla MD IMG OUTSIDE INTERPRETATION O RDERABLES documented in this encounter Visit Diagnoses Not on filedocumented in this encounter Care Teams Set Builder Relationship Specialty Start Date End Date Farhan Moss MD PCP - General Emergency Medicine 04/26/21 [address] [place] [address] documented as of this encounter
--- OUTSIDE RECORDS SUMMARY | 2022-01-27 16:06 | XMS_ITS | Encounter Summary ---
:1960 Author Organization [facility] [place] [address] Care Team Providers Name Role Phone Unavailable Primary Care Provider Unavailable Encounter Details Date Type Department Care Team Description 04/11/2020 Telephone Gastroenterology at [facility] [place] [place] [address] Social History Tobacco Use Types Packs/Day Years Used Date Smoking Tobacco: Former Smokeless Tobacco: Never Alcohol Use Standard Drinks/Week Comments Yes 0 (1 standard drink = 0.6 oz pure alcoho l) rarely Sex Assigned at Date Recorded Not on file documented as of this encounter Miscellaneous Notes Telephone Encounter - Lauren Villaseñor - 04/11/2020 3:49 PM EST Patient called back to give Verbal Permission for us to schedule his EGD/ COLO through his . Her name is Karlie. He wants to have the procedures on a THURSDAY. I have mailed them a Designation of Personal Teacher Associate form so that Karlie can call in for otherappointment needs. I only find the referral for a COLO so the patient is calling his RMD to get a referral sent over. -Lauren documented in this encounter Plan of Treatment Not on filedocumented as of this encounter Visit Diagnoses Not on filedocumented in this encounter
[2022-01-27 20:51] LABS: HCT 40.1 % (40.0-50.0); HGB 12.8 g/dL (13.5-17.5); MCH 27.6 pg (27.0-33.0); MCHC 31.9 % (32.0-36.0); MCV 86 fL (80-95); MPV 10.1 fL (8.0-11.0); Platelet Count 345 10^3/uL (130-400); RBC 4.64 10^6/uL (4.36-5.78); RDW 14.8 % (11.8-14.1); RDW-SD 46.7 fL; WBC 8.45 10^3/uL (4.4-10.8)
[2022-01-27 21:09] LABS: Calculated LDL 189 mg/dL (<100); Cholesterol 271 mg/dL (<200); Glucose 78 mg/dL (74-106); HDL Cholesterol 53 mg/dL (40-60); TSH 4.01 uIU/mL (0.36-3.74); Triglyceride 145 mg/dL (<150)
== END 2022-01-27 15:59 | disposition home or self-care (01) ==
LOC: NCHCN 15:58
PROVIDERS: PCP Internal Medicine; Visit Provider Family Medicine
DX: E03.9 Hypothyroidism, unspecified (principal); I82.493 Acute embolism and thrombosis of other specified deep vein of lower extremity, bilateral; Z00.00 Encounter for general adult medical examination without abnormal findings
CPT/HCPCS: 80061; 82947; 85027; 84443

== ENCOUNTER 2022-06-16 04:58 | Emergency (ER) | payer BC, SELFPAY ==
[2022-06-16] VITALS (30 sets, daily range): BP systolic 109–147; BP diastolic 70–95; PULSE 58–76; RESP 11–18; O2SAT 91–97
--- NOTE | 2022-06-16 05:00 | RT.EKG_ITS ---
APPROVED REPORT Exam: Resting ECG Reason for Exam: dizzy Patient Location: E HR:63 bpm ECG Measurements Heart Rate 63 AXIS MT 180 P 14 QRSd 110 QRS -21 QT 421 T 34 QTc 431 Conclusion Gender not entered, assumed to be male for purpose of ECG interpretation Sinus rhythm...normal P axis, V-rate 60- 99 Probable lateral infarct, old...Q>35mS, abnormal ST-T, V5-6 I aVL. Sinus. Normal axis. No STEMI. I have reviewed and interpreted ECG and agree with software generated interpretation.
[2022-06-16] MEDS: Normal Saline 1,000 ML 1000 ML IV ×2 (05:27→06:49)
[2022-06-16] MEDS: Ondansetron 4 MG/2 ML VIAL IVP (05:27)
[2022-06-16 05:33] LABS: Abs Immature Grans 0.06 10^3/uL (0.0-0.06); Absolute Basophil Count 0.07 10^3/uL (0.0-0.2); Absolute Eosinophil Count 0.16 10^3/uL (0.0-0.7); Absolute Lymphocyte Count 1.62 10^3/uL (1.2-3.4); Absolute Monocyte Count 0.55 10^3/uL (0.1-0.8); Absolute Neutrophil Count 10.58 10^3/uL (1.2-6.7); Basophils % 0.5; Eosinophils % 1.2; HGB 13.3 g/dL (13.5-17.5); Immature Grans % 0.5; Lymphocytes % 12.4; MCH 27.9 pg (27.0-33.0); MCHC 32.4 % (32.0-36.0); MCV 86 fL (80-95); MPV 9.1 fL (8.0-11.0); Monocytes % 4.2; Neutrophils % 81.2; Platelet Count 363 10^3/uL (130-400); RBC 4.76 10^6/uL (4.36-5.78); RDW 13.9 % (11.8-14.1); RDW-SD 44.4 fL; WBC 13.03 10^3/uL (4.4-10.8)
--- NOTE | 2022-06-16 05:47 | ED.GENADUL_ITS ---
Discharge Plan Disposition Patient Disposition: Home Condition: Improving Discharge Details Clinical Impression: Dizziness Primary Care Provider: Noman Ramírez ED Provider: Brooks Khoury Home Meds and New Rx's Prescriptions: New meclizine 25 mg tablet 25 mg PO BID PRN (Reason: dizziness) Qty: 10 0RF Continued levothyroxine 25 MCG tablet 88 mcg PO DAILY@0730 omeprazole 20 MG tablet,delayed release (DR/EC) 20 mg PO DAILY AM ibuprofen 200 MG capsule 400 mg PO PRN PRN cephalexin 250 MG/5 ML suspension for reconstitution 250 mg PO TID 7 Days 0RF mupirocin 22 GM ointment 1 gm Topical TID Qty: 1 0RF Eliquis 5 mg Tablet 5 mg PO BID Discharge Instructions Instructions: Dizziness (ED) Additional Instructions: Please follow-up with neurology team as scheduled. 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 Vitals within normal limits. Patient appears somewhat uncomfortable, keeping his eyes closed with a cold washcloth on his forehead. He admits to nausea and dizziness described as spinning. He has bilateral horizontal nystagmus. No other obvious focal deficits. No meningeal signs. His abdomen is soft and nontender. His distal lower extremity pulses are intact. He has no fever, neck pain or meningismus to suggest meningitis. He has no headache, blurry vision or unilateral numbness or weakness to suggest CVA. He has no abdominal or flank pain to suggest an acute abdominal or genitourinary cause. Suspect vertigo. Also consider gastroenteritis, electrolyte abnormality, COVID, influenza. Will obtain screening labs, FLUVID and give IV Zofran, meclizine, Valium p.o. and fluid bolus and reassess. 0645 -- labs reviewed. White blood cell count 13. Normal electrolytes. Troponin negative. TSH within normal limits. Patient reassessed and he feels somewhat better but still with some nausea and dizziness. We will give additional fluid bolus, another dose of meclizine and dose of IV Compazine and Benadryl and reassess. He continues to deny any headache or abdominal pain. His abdomen is soft and nontender. He again demonstrates no focal deficits. Do not see indication for imaging at this time but will continue to reassess. 6330 -- Case endorsed to Dr. Khoury to reassess after additional meds/fluids. If symptoms not improving, consider imaging of head or abdomen if clinically indicated. 8: 46 although patient symptoms are greatly improving he still has mild vertigi nous symptoms, no further vomiting or nausea. Given age and Eliquis use CT head was ordered which shows possible hypodensities in the left hemisphere, will obtain stat MRI brain. Patient does have extensive metal stenting of his lower extremities placed at [facility] in 2021, he has an MRI safety card which was reviewed with radiology team and he is cleared for MRI. Disposition pending results and reassessment. Consider home with close neuro follow-up given nonfocal examination and improving symptoms 13: 21 patient feeling much better resting comfortably no acute distress. Age- related microvascular changes to brain seen on MRI. No evidence of acute stroke. Patient will be provided with neurology follow-up. Will follow with primary care physician. Home care instructions and return precautions given Medical Records Medical records reviewed: Yes I reviewed the patient's medical records. Lab Data Lab results reviewed: Yes I reviewed the patient's lab results. Labs: Laboratory Tests Range/Units 06/16/22 06/16/22 06/16/22 05:25 05:25 05:25 WBC (4.4-10.8) 10^3/uL 13.03 H RBC (4.36-5.78) 10^6/uL 4.76 Hgb (13.5-17.5) g/dL 13.3 L Hct (40.0-50.0) % 41.0 MCV (80-95) fL 86 MCH (27.0-33.0) pg 27.9 MCHC (32.0-36.0) % 32.4 RDW (11.8-14.1) % 13.9 Plt Count (130-400) 10^3/uL 363 MPV (8.0-11.0) fL 9.1 Immature Gran % 0.5 Neutrophils % 81.2 Lymphocytes % 12.4 Monocytes % 4.2 Eosinophils % 1.2 Basophils % 0.5 Nucleated RBC % (0.0-0.3) % 0.0 Absolute Neutrophils (1.2-6.7) 10^3/uL 10.58 H Absolute Lymphocytes (1.2-3.4) 10^3/uL 1.62 Absolute Monocytes (0.1-0.8) 10^3/uL 0.55 Absolute Eosinophils (0.0-0.7) 10^3/uL 0.16 Absolute Basophils (0.0-0.2) 10^3/uL 0.07 Sodium (136-145) mmol/L 141 Potassium (3.5-5.1) mmol/L 3.6 Chloride (98-107) mmol/L 105 Carbon Dioxide (21.0-32.0) mmol/L 28.2 Anion Gap (3-11) mmol/L 7.8 BUN (7-18) mg/dL 20 H Creatinine (0.70-1.30) mg/dL 1.0 Est GFR (CKD-EPI 2020) (mL/min/1.73m2) 85.10 Glucose (74-106) mg/dL 140 H Calcium (8.5-10.1) mg/dL 8.7 Magnesium (1.8-2.4) mg/dL 2.0 Total Bilirubin (0.2-1.0) mg/dL 0.3 AST (15-37) U/L 14 L ALT (16-63) U/L 22 Alkaline Phosphatase (46-116) U/L 85 Troponin I (<or=60) ng/L < 50 Total Protein (6.4-8.2) g/dL 7.7 Albumin (3.4-5.0) g/dL 3.8 Lipase (16-77) U/L 35 TSH (0.36-3.74) uIU/mL 2.54 COVID-19 Source SARS-CoV-2 (PCR) (Negative) Influenza Type A (PCR) (Negative) Influenza Type B (PCR) (Negative) RSV (PCR) (Negative) Range/Units 06/16/22 05:30 WBC (4.4-10.8) 10^3/uL RBC (4.36-5.78) 10^6/uL Hgb (13.5-17.5) g/dL Hct (40.0-50.0) % MCV (80-95) fL MCH (27.0-33.0) pg MCHC (32.0-36.0) % RDW (11.8-14.1) % Plt Count (130-400) 10^3/uL MPV (8.0-11.0) fL Immature Gran % Neutrophils % Lymphocytes % Monocytes % Eosinophils % Basophils % Nucleated RBC % (0.0-0.3) % Absolute Neutrophils (1.2-6.7) 10^3/uL Absolute Lymphocytes (1.2-3.4) 10^3/uL Absolute Monocytes (0.1-0.8) 10^3/uL Absolute Eosinophils (0.0-0.7) 10^3/uL Absolute Basophils (0.0-0.2) 10^3/uL Sodium (136-145) mmol/L Potassium (3.5-5.1) mmol/L Chloride (98-107) mmol/L Carbon Dioxide (21.0-32.0) mmol/L Anion Gap (3-11) mmol/L BUN (7-18) mg/dL Creatinine (0.70-1.30) mg/dL Est GFR (CKD-EPI 2020) (mL/min/1.73m2) Glucose (74-106) mg/dL Calcium (8.5-10.1) mg/dL Magnesium (1.8-2.4) mg/dL Total Bilirubin (0.2-1.0) mg/dL AST (15-37) U/L ALT (16-63) U/L Alkaline Phosphatase (46-116) U/L Troponin I (<or=60) ng/L Total Protein (6.4-8.2) g/dL Albumin (3.4-5.0) g/dL Lipase (16-77) U/L TSH (0.36-3.74) uIU/mL COVID-19 Source Nasopharynx SARS-CoV-2 (PCR) (Negative) Negative Influenza Type A (PCR) (Negative) Negative Influenza Type B (PCR) (Negative) Negative RSV (PCR) (Negative) Negative ECG Data Attestation: I personally reviewed and interpreted this ECG (s) as follows: Interpretation: Rate of 63, sinus, normal QT. No acute ischemic findings. 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 Vitals within normal limits. Patient appears somewhat uncomfortable, keeping his eyes closed with a cold washcloth on his forehead. He admits to nausea and dizziness described as spinning. He has horizontal nystagmus. No other obvious focal deficits. No meningeal signs. His abdomen is soft and nontender. His distal lower extremity pulses are intact. He has no fever, neck pain or meningismus to suggest meningitis. He has no headache, blurry vision or unilateral numbness or weakness to suggest CVA. He has no abdominal or flank pain to suggest an acute abdominal or genitourinary cause. Suspect vertigo. Also consider gastroenteritis, electrolyte abnormality, COVID, influenza. Will obtain screening labs, FLUVID and give IV Zofran, meclizine, Valium p.o. and fluid bolus and reassess. 0645 -- labs reviewed. White blood cell count 13. Normal electrolytes. Troponin negative. TSH within normal limits. Patient reassessed and he feels somewhat better but still with some nausea and dizziness. We will give additional fluid bolus, another dose of meclizine and dose of IV Compazine and Benadryl and reassess. He continues to deny any headache or abdominal pain. His abdomen is soft and nontender. He again demonstrates no focal deficits. Do not see indication for imaging at this time but will continue to reassess. 0730 -- Case endorsed to Dr. Khoury to re-evaluate dizziness after additional meds/fluids. 8: 46 although patient symptoms are greatly improving he still has mild vertiginous symptoms, no further vomiting or nausea. Given age and Eliquis use CT head was ordered which shows possible hypodensities in the left hemisphere, will obtain stat MRI brain. Patient does have extensive metal stenting of his lower extremities placed at [facility] in 2021, he has an MRI safety card which was reviewed with radiology team and he is cleared for MRI. Disposition pending results and reassessment. Consider home with close neuro follow-up given nonfocal examination and improving symptoms 13: 21 patient feeling much better resting comfortably no acute distress. Age- related microvascular changes to brain seen on MRI. No evidence of acute stroke. Patient will be provided with neurology follow-up. Will follow with primary care physician. Home care instructions and return precautions given HPI <Adele Candelaria, - Last Filed: 06/16/22 23:05> General Mode of arrival: ambulatory . Date/Time Provider Initiated Documentation: 06/16/22 05:11 . Limitations to Documentation: no limitations . Information obtained by: patient . 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 Patient states he ate a leftover Salad before bed last night. He states he had been sitting down after going out for lunch yesterday. He states his vomiting has mainly consisted of food and denies any hematemesis, coffee-ground emesis or bilious vomiting. Patient states he had 1 episode of watery brown diarrhea and denies any hematochezia. Patient denies any abdominal pain at any time. Patient states shortly after the vomiting started he developed dizziness which he describes as a spinning sensation. He states it is worse with any movement, specifically head movement. He denies any headache, blurry vision, chest pain, difficulty breathing, urinary symptoms. states that patient has had 2 similar episodes of vomiting and diarrhea with dizziness occurring over the past 2 weeks. Patient states this episode of vomiting and dizziness is more intense than previous episodes. He states his other episodes resolved after a few hours and he had not sought any medical treatment. Related Data Home Medications Medication Instructions Recorded Confirmed cephalexin 250 mg/5 mL oral 250 mg (5 mL) PO TID 7 days 07/15/17 suspension ibuprofen 200 mg capsule 400 mg PO PRN PRN 07/15/17 06/16/22 levothyroxine 25 mcg tablet 88 mcg PO DAILY@0730 07/15/17 06/16/22 mupirocin 2 % topical ointment 1 gm topical TID #1 tube 07/15/17 omeprazole 20 mg tablet,delayed 20 mg PO DAILY AM 07/15/17 06/16/22 release apixaban 5 mg tablet (Eliquis) 5 mg PO BID 06/16/22 06/16/22 meclizine 25 mg tablet 25 mg PO BID PRN dizziness #10 tabs 06/16/22 Previous Rx's Medication Instructions Recorded cephalexin 250 mg/5 mL oral 250 mg (5 mL) PO TID 7 days 07/15/17 suspension mupirocin 2 % topical ointment 1 gm topical TID #1 tube 07/15/17 meclizine 25 mg tablet 25 mg PO BID PRN dizziness #10 tabs 06/16/22 Allergies Allergy/AdvReac Type Severity Reaction Status Date / Time No Known Allergies Allergy Unverified 06/16/22 05:07 General Stated Complaint: Dizzy/Sync CHARLEY: 3 Review of Systems <Adele Candelaria DO - Last Filed: 06/16/22 23:05> All systems reviewed & are unremarkable except as noted in HPI and below Constitutional Constitutional: Reports as per HPI, Denies chills and Denies fever(s) Eyes Eyes: Denies blurry vision ENT Ears, Nose, Mouth, and Throat: Reports dizziness, Denies sore throat and Denies throat swelling Cardiovascular Cardiovascular: Denies chest pain and Denies dyspnea Respiratory Respiratory: Denies cough and Denies dyspnea Gastrointestinal Gastrointestinal: Denies abdominal pain, Reports diarrhea and Reports vomiting Genitourinary Genitourinary: Denies hematuria and Denies dysuria Musculoskeletal Musculoskeletal: Denies back pain and Denies numbness Integumentary/Breasts Skin/Breast: Denies lesions and Denies rash Neurologic Neurologic: Reports dizziness, Denies localized weakness and Denies numbness Allergic/Immunologic Allergic/Immunologic: Denies throat swelling PFS <DO Aron Cisneros Last Filed: 06/16/22 23:05> All Active Problems (Updated 06/16/22 @ 13:27 by Brooks Khoury MD) Dizziness (Acute) Medical History (Updated 06/16/22 @ 13:27 by Brooks Khoury MD) DVT (deep venous thrombosis) Hypothyroidism Peripheral vascular disease Phlegmasia cerulea dolens Surgical History (Updated 06/16/22 @ 06:26 by Adele Candelaria DO) History of fasciotomy Right leg S/P IVC filter 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 Social History Smoking/Tobacco Use Status: Never Smoking risk assessment performed?: Yes Alcohol Intake: current Alcohol Intake frequency: holidays/special occasions on ly Substance use type: does not use Do you feel safe at home: Yes Do you feel safe in your relationship?: Yes Exam <Adele Candelaria DO - Last Filed: 06/16/22 23:05> Const General: cooperative, uncomfortable and no acute distress Orientation: alert, awake and oriented x3 HENMT Head: normal to inspection Face and sinus: normal facial exam Eyes General: appearance normal, both eyes and all related structures Pupils: PERRL EOM: nystagmus (horizontal) Neck Neck: normal visual inspection and No submandibular swelling Lymphatic: no lymphadenopathy noted Chest Chest: normal inspection of the chest and no tenderness Resp Effort & Inspection: normal respiratory effort and able to speak in complete sentences Auscultation: clear to auscultation bilaterally Cardio Rate: regular rate Rhythm: regular rhythm GI Inspection: normal to inspection Palpation: soft, not firm, not rigid and nontender Auscultation: hypoactive bowel sounds Back/Spine/Pelvis Thoracic/Lumbar Spine: thoracic and lumbar spine normal to inspection Pelvis: no pain with anterior-posterior compression Skin General skin exam: no rashes or lesions noted Neuro General: patient alert, patient awake, patient oriented x3, moves all extremities and no meningeal signs Cranial Nerves: CN's II-XI intact bilaterally and nystagmus (horizontal) horizontal Cognition: normal cognition Speech: speech normal Motor: muscle tone normal throughout and strength 5/5 throughout Sensory Exam: no sensory deficits noted Extrem General: normal to inspection, full ROM, capillary refill normal, no calf tenderness bilaterally and no edema Psych Appearance: grossly normal Mental Status: mental status grossly normal Speech and Movement: speech and movement normal Affect: normal affect Course <Adele Candelaria DO - Last Filed: 06/16/22 23:05> Vital Signs Vital signs: Vital Signs Pulse 67 06/16/22 05:02 Respiratory Rate 18 06/16/22 05:02 Blood Pressure 147/95 H 06/16/22 05:02 Pulse Oximetry 97 06/16/22 05:02 Pulse 67 06/16/22 05:02 Respiratory Rate 18 06/16/22 05:02 Respiratory Effort Normal, Non-Labored 06/16/22 05:34 Respiratory Depth Normal 06/16/22 05:34 Respiratory Pattern Normal 06/16/22 05:34 Blood Pressure 147/95 H 06/16/22 05:02 Blood Pressure Position Sitting 06/16/22 05:02 Pulse Oximetry 97 06/16/22 05:02 Oxygen Delivery Method Room Air 06/16/22 05:02 Oxygen Flow Rate 0 06/16/22 05:02 Lab/Test Results Lab/Test Results: Laboratory Tests Range/Units 06/16/22 05:25 WBC (4.4-10.8) 10^3/uL 13.03 H RBC (4.36-5.78) 10^6/uL 4.76 Hgb (13.5-17.5) g/dL 13.3 L Hct (40.0-50.0) % 41.0 MCV (80-95) fL 86 MCH (27.0-33.0) pg 27.9 MCHC (32.0-36.0) % 32.4 RDW (11.8-14.1) % 13.9 Plt Count (130-400) 10^3/uL 363 MPV (8.0-11.0) fL 9.1 Immature Gran % 0.5 Neutrophils % 81.2 Lymphocytes % 12.4 Monocytes % 4.2 Eosinophils % 1.2 Basophils % 0.5 Nucleated RBC % (0.0-0.3) % 0.0 Absolute Neutrophils (1.2-6.7) 10^3/uL 10.58 H Absolute Lymphocytes (1.2-3.4) 10^3/uL 1.62 Absolute Monocytes (0.1-0.8) 10^3/uL 0.55 Absolute Eosinophils (0.0-0.7) 10^3/uL 0.16 Absolute Basophils (0.0-0.2) 10^3/uL 0.07 Sign Out <Adele Candelaria DO - Last Filed: 06/16/22 23:05> Sign Out Data: Sign Out Comment: Vomiting, diarrhea and dizziness for the past few hours. Screening labs reassuring. Reassess after medications. May need admission for intractable nausea and dizziness. Consider imaging of head or abdomen if no improvement. Last updated by Adele Candelaria DO at 06/16/22 07:31
[2022-06-16 05:48] LABS: ALT 22 U/L (16-63); AST 14 U/L (15-37); Albumin 3.8 g/dL (3.4-5.0); Alkaline Phosphatase 85 U/L (46-116); Anion Gap 7.8 mmol/L (3-11); BUN 20 mg/dL (7-18); Bilirubin, Total 0.3 mg/dL (0.2-1.0); CO2 28.2 mmol/L (21.0-32.0); Calcium 8.7 mg/dL (8.5-10.1); Chloride 105 mmol/L (98-107); Glucose 140 mg/dL (74-106); Lipase 35 U/L (16-77); Potassium 3.6 mmol/L (3.5-5.1); Sodium 141 mmol/L (136-145); Total Protein 7.7 g/dL (6.4-8.2); Troponin I < 50 ng/L (<or=60)
[2022-06-16 05:54] LABS: TSH (W/Ref FT4) 2.54 uIU/mL (0.36-3.74)
[2022-06-16] MEDS: Meclizine 25 MG TAB PO ×2 (05:55→06:50)
[2022-06-16] MEDS: diazePAM 5 MG TAB PO (05:55)
[2022-06-16 06:15] LABS: COVID-19 PCR Negative (Negative); Influenza A PCR Negative (Negative); Influenza B PCR Negative (Negative); RSV PCR Negative (Negative)
[2022-06-16] MEDS: Prochlorperazine 10 MG/2 ML VIAL IVP (06:50)
[2022-06-16] MEDS: diphenhydrAMINE 50 MG/ML VIAL 25 MG IVP (06:50)
[2022-06-16 07:16] LABS: Source Nasopharynx
--- NOTE | 2022-06-16 07:45 | DI.CT_ITS ---
Exam(s) CT HEAD WO EXAM: CT HEAD WO CLINICAL HISTORY: dizzy, on eliquis. TECHNIQUE: Imaging Protocol: Axial computed tomography images with coronal and sagittal reformatted images were created and reviewed COMPARISON: No exams were available for comparison FINDINGS: There are no skull fractures. There is no fluid in the visualized paranasal sinuses. There is no evidence of intracranial hemorrhage, mass effect, or shift of midline structures. There are no extra-axial fluid collections. The ventricles are not enlarged or shifted and there is no blo od within the ventricular system nor within the basal cisterns. There is a small 6 x 4 millimeter hypodensity in the left parietal lobe, possibly lacunar infarct. T here is also subtle asymmetric abnormal hypodensity in the upper left frontal subcortical region, pos sibly ischemic. IMPRESSION: No evidence of intracranial hemorrhage. Left hemisphere hypodensities as described above. Correlation clinical findings recommended. If cli nically indicated follow-up MRI with diffusion imaging can be performed for added sensitivity and spe cificity. RADIATION DOSE DELIVERED: 893.09mGy.cm Total DLP DATA REPOSITORY: All CT scans at this facility are submitted to the National Radiology Data Registry (NRDR) Dose Index Registry (DIR) with the [employer] (A[employer]). RADIATION OPTIMIZATION: All CT scans at this facility use at least one of these dose optimization te chniques: automated exposure control; mA and/or kV adjustment per patient size (includes targeted exa ms where dose is matched to clinical indication); or iterative reconstruction.
--- NOTE | 2022-06-16 08:30 | DI.MRI_ITS ---
Exam(s) MR BRAIN WO EXAM: MR BRAIN WO CLINICAL HISTORY: dizziness, vomiting, abnormal CT head TECHNIQUE: Multiplanar multisequence MRI of the brain was performed. COMPARISON: No exams were available for comparison FINDINGS: CEREBRAL PARENCHYMA: There is no evidence of intracranial hemorrhage, mass effect, or shift of midline structures. There are no extra-axial fluid collections. Ventricles are not enlarged or shifted. There is no significant focal signal abnormality in the cerebellar hemispheres nor within the gi, m idbrain, and thalami. There are few small foci of white matter bright signal abnormalities. On the left side to these carmelina espond to the findings described on the recent CT scan. A few other sub cm foci are in the white mat ter noted on the opposite-right side. However, none of these exhibit evidence of hemorrhage or surro unding edema nor restricted diffusion. There is no significant focal signal abnormality evident on diffusion imaging to suggest acute ischem ic event. PITUITARY GLAND: No mass nor parasellar abnormality. No obvious abnormality in the cavernous sinuses. FLOW VOIDS: The expected flow void are noted. No evidence of obvious aneurysm nor obvious vascular ma lformation. PARANASAL SINUSES: There is mild circumferential mucosal thickening in the left maxillary sinus but n o associated fluid level. ORBITS: No obvious findings. IMPRESSION: Small bilateral white matter foci consistent with chronic small vessel disease with 2 of these on the left side correspond to the findings on today's CT scan. However, there is no evidence of restricte d diffusion to suggest that these are acute ischemic events. Also no evidence of hemorrhage or surro unding edema. Called to ER. DATA REPOSITORY:
--- NOTE | 2022-06-16 08:59 | NUR.NOTE ---
Nursing Note: IVC filter information scanned into patient record.
--- NOTE | 2022-06-16 13:27 | NUR.NOTE ---
Nursing Note: Referral faxed to [facility] Neurology for dizziness/this week or first of next week
== END 2022-06-16 14:15 | disposition home or self-care (01) ==
PROVIDERS: Physician Assistant; Emergency Provider Emergency Medicine; PCP Internal Medicine
DX: R42 Dizziness and giddiness (principal); G93.89 Other specified disorders of brain; R19.7 Diarrhea, unspecified; Z20.822 Contact with and (suspected) exposure to COVID-19
CPT/HCPCS: 80053; 83690; 87637; 93005; 96361; 96374; 96375; 99284; 70450; 70551; 83735; 84443; 84484; 85025; 93010; J0780; J1200; J2405

== ENCOUNTER 2022-07-25 22:43 | Outpatient (REF) | payer BC, SELFPAY ==
[2022-07-25 21:35] LABS: ALT 24 U/L (16-63); AST 18 U/L (15-37)
== END 2022-07-25 22:44 | disposition home or self-care (01) ==
LOC: NCHCN 22:43
PROVIDERS: PCP Family Medicine; Visit Provider Family Medicine
DX: Z51.81 Encounter for therapeutic drug level monitoring (principal); Z79.899 Other long term (current) drug therapy
CPT/HCPCS: 84450; 84460

== ENCOUNTER 2022-09-16 16:19 | Outpatient (REF) | payer BC, SELFPAY ==
[2022-09-16 16:31] LABS: Calculated LDL 185 mg/dL (<100); Cholesterol 258 mg/dL (<200); HDL Cholesterol 49 mg/dL (40-60); Triglyceride 123 mg/dL (<150)
== END 2022-09-16 16:20 | disposition home or self-care (01) ==
LOC: NCHCN 16:19
PROVIDERS: PCP Family Medicine; Visit Provider Family Medicine
DX: Z51.81 Encounter for therapeutic drug level monitoring (principal)
CPT/HCPCS: 80061

== ENCOUNTER → 2023-06-30 15:00 | Outpatient (CLI) | payer BC, SELFPAY ==
--- NOTE | 2023-06-30 | DI.RAD_ITS ---
Exam(s) XR KNEE RT 4V AP,LAT,NILSA,PAT EXAM: XR KNEE RT 4V AP,LAT,NILSA,PAT CLINICAL HISTORY: M25.561 Pain in rt knee, with sunrise. TECHNIQUE: 2D digital imaging was performed. Three views. COMPARISON: No exams were available for comparison FINDINGS: BONES: 2 bony fragments are seen at the lateral border of the patella. The findings could represent an anatomic variant of tripartite patella grade fracture not entirely excluded. No bony destructive lesion is seen. JOINTS: The knee is normally aligned. A small joint effusion is seen. Joint spaces are maintained. SOFT TISSUE: Normal. IMPRESSION: Question of tripartite patella with 2 small of dense bony densities at the lateral aspect of the wilkinson lla. Clinical correlation with the site of tenderness is recommended. DATA REPOSITORY: RADIATION DOSE DELIVERED:
== END ==
PROVIDERS: PCP Family Medicine; Visit Provider Family Medicine
DX: M25.561 Pain in right knee (principal); R93.6 Abnormal findings on diagnostic imaging of limbs
CPT/HCPCS: 73564

== ENCOUNTER 2023-07-14 14:06 | Outpatient (CLI) | payer BC, SELFPAY ==
--- NOTE | 2023-07-14 13:45 | DI.RAD_ITS ---
Exam(s) XR KNEE RT 3V AP,LAT,NILSA EXAM: XR KNEE RT 3V AP,LAT,NILSA CLINICAL HISTORY: RIGHT KNEE PAIN. TECHNIQUE: 2D digital imaging was performed. COMPARISON: CR XR KNEE RT 4V AP,LAT,NILSA,PAT from 06/30/2023 FINDINGS: 3 views The previously described findings in the lateral aspect of the patella are again noted, not associate d with patellar dislocation. 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 No other findings in the other compartments of the right knee. Joint effusion noted. IMPRESSION: No significant change compared to 06/30/2023. DATA REPOSITORY: RADIATION DOSE DELIVERED:
== END 2023-07-14 14:07 | disposition home or self-care (01) ==
LOC: DIORS 14:06
PROVIDERS: PCP Family Medicine; Visit Provider Student in an Organized Health Care Education/Training Program
DX: M25.561 Pain in right knee (principal)
CPT/HCPCS: 73562

== ENCOUNTER 2024-01-14 21:59 | Outpatient (REF) | payer OTHER, SELFPAY ==
[2024-01-14 21:50] LABS: TSH 2.19 uIU/mL (0.36-3.74)
== END 2024-01-14 22:00 | disposition home or self-care (01) ==
LOC: NCHCN 21:59
PROVIDERS: PCP Family Medicine; Visit Provider Family Medicine
DX: E03.9 Hypothyroidism, unspecified (principal)
CPT/HCPCS: 84443

== ENCOUNTER → 2025-01-23 02:20 | Outpatient (CLI) | payer BC, SELFPAY ==
--- NOTE | 2025-01-23 16:24 | DI.RAD_ITS ---
Exam(s) XR SHOULDER LT COMPLETE 2+V EXAM: XR SHOULDER LT COMPLETE 2+V CLINICAL HISTORY: PAIN LT SHOULDER JOINT, M25.512. TECHNIQUE: 2D digital imaging was performed. Four views. COMPARISON: No exams were available for comparison FINDINGS: BONES: No acute fracture is present. No bony destructive lesion is seen. JOINTS: No dislocation present. No significant spurring at the AC joint. Glenohumeral joint is maintained. SOFT TISSUE: Normal. IMPRESSION: Unremarkable radiographs of the left shoulder. DATA REPOSITORY: RADIATION DOSE DELIVERED:
== END ==
PROVIDERS: PCP Family Medicine; Visit Provider Family Medicine
DX: M25.512 Pain in left shoulder (principal)
CPT/HCPCS: 73030

== ENCOUNTER 2025-02-10 07:42 | Outpatient (CLI) | payer BC, SELFPAY ==
[2025-02-10 07:58] LABS: TSH 5.61 uIU/mL (0.55-4.78)
[2025-02-10 08:06] LABS: ALT 18 U/L (10-49); AST 22 U/L (<34); Albumin 4.5 g/dL (3.2-5.0); Alkaline Phosphatase 88 U/L (46-116); Anion Gap 8.2 mmol/L (3-11); BUN 19 mg/dL (9-23); Bilirubin, Total 0.7 mg/dL (0.2-1.2); CO2 28.8 mmol/L (20.0-31.0); Calcium 9.0 mg/dL (8.3-10.6); Chloride 105 mmol/L (98-107); Cholesterol 264 mg/dL (<200); Glucose 94 mg/dL (74-106); HDL Cholesterol 54 mg/dL (>40); Potassium 4.0 mmol/L (3.5-5.1); Sodium 142 mmol/L (136-145); Total Protein 7.9 g/dL (5.7-8.2)
== END 2025-02-10 07:43 | disposition home or self-care (01) ==
LOC: LBO 07:43
PROVIDERS: PCP Family Medicine; Visit Provider Family Medicine
DX: E78.5 Hyperlipidemia, unspecified (principal); Z79.01 Long term (current) use of anticoagulants; E03.9 Hypothyroidism, unspecified
CPT/HCPCS: 36415; 80053; 80061; 84443

== ENCOUNTER → 2025-02-22 00:14 | Outpatient (CLI) | payer BC, SELFPAY ==
[2025-02-22] MEDS: Barium Sulfate 60% W/V 355 ML BTL PO (11:14)
[2025-02-22] MEDS: Simethicone/Sod Bicarb/Cit Ac, 4 gram PACKET 1 PACKET PO (11:15)
[2025-02-22] MEDS: Barium Sulfate 98% W/W 140 ML BTL PO (11:15)
--- NOTE | 2025-02-22 12:00 | DI.RAD_ITS ---
Exam(s) RF BARIUM SWALLOW UGI EXAM: BARIUM SWALLOW UGI CLINICAL HISTORY: hiatal hernia, regurgitation of food K44.9 K21.9 GERD TECHNIQUE: 2D and real-time digital imaging was performed. CONTRAST MATERIAL: Oral barium Oral water soluble contrast was administered. Performed standing and recumbent using air-contrast technique COMPARISON: No exams were available for comparison FINDINGS: Clip On Sunglasses Inspector film reveals aortoiliac stents. No free air. Nonspecific bowel gas pattern. ESOPHAGRAM: The swallowing mechanism is intact. No aspiration. No hypertense upper esophageal sphincter demonstrated and no Zenker's diverticulum. The diameter of the esophagus appears unremarkable. The main finding is distally where there is a sliding-type hiatal hernia measuring approximately 5 x 5 cm. There is no obvious abnormality of the mucosal pattern in the distal esophagus above the hiatal hernia. STOMACH: Hiatal hernia as described above containing significant part of the fundus. Remainder of the stomach appears unremarkable. No obvious masses nor ulcer craters. DUODENUM: Normal appearing C loop. No ulcers evident. No diverticuli. No strictures. Visualized proximal small bowel loops appear unremarkable and there is no evidence of malrotation. IMPRESSION: There is a sliding-type hiatal hernia measuring approximately 5 x 5 cm on this air contrast study. RADIATION DOSE DELIVERED: mario Nazario= 132 mGy
== END ==
LOC: DI 00:15
PROVIDERS: PCP Family Medicine; Visit Provider Surgery
DX: K44.9 Diaphragmatic hernia without obstruction or gangrene (principal); K21.9 Gastro-esophageal reflux disease without esophagitis
CPT/HCPCS: 74221; 74246; J3490

== ENCOUNTER 2025-02-28 06:59 | Day surgery (SDC) | payer BC, SELFPAY ==
--- NOTE | 2025-02-27 20:23 | PDOC.DSDIS_ITS ---
Date of service: 02/28/25 Discharge Plan Disposition Patient Disposition: Home Condition: Good Discharge Details Reason For Visit: EGD and colonoscopy Attending Provider: Brad Arguelles Primary Care Provider: Farhan Moss Home Meds and New Rx's Prescriptions: Continued levothyroxine 100 mcg capsule 100 mcg PO DAILY albuterol sulfate [Ventolin HFA] 90 mcg/actuation HFA aerosol inhaler 1 - 2 puff inhalation .q4-6 PRN meclizine 25 mg tablet 25 mg PO Q6H PRN omeprazole 20 MG tablet,delayed release (DR/EC) 20 mg PO DAILY AM Held Eliquis 5 mg Tablet 5 mg PO BID Hold Instructions: Resume on 03/01/25. Discontinued bisacodyl [Dulcolax (bisacodyl)] 5 mg tablet,delayed release (DR/EC) 5 mg PO ONCE Qty: 4 0RF Rx Instructions: take per colonoscopy instructions polyethylene glycol 3350 17 gram/dose powder 238 g PO ONCE Qty: 238 0RF Rx Instructions: take per colonoscopy instructions Discharge Instructions Instructions: Hiatal hernia, Colon polyps, Diverticulosis Additional Instructions: Zander was good meeting you today, and hope you feel well after the procedure. Things went very smoothly. With regards to the upper endoscopy, generally things appear normal and healthy. As we knew ahead of time, you do have a hiatal hernia. I believe this to be a Hill grade 4 sliding hiatal hernia, and I suspect this is accounting for a majority of your symptoms. I did do some biopsies in your stomach, as well as the area where your esophagus connects onto your stomach to rule out other sources of your symptoms. And as we discussed beforehand, I do think you benefit from consultation with a specialist regarding hiatal hernia repair. I will place a referral to [facility] today, and I would expect a call from them in the next few weeks. The colonoscopy also went very smoothly. I did find, and removed 3 polyps today. All of these were quite small, and I suspect that they are nothing to worry about. I will send them off to the pathologist as I mentioned before, and once we have those results, my office will be in touch regarding recommendations for future colonoscopies. Incidentally, you also have some diverticulosis in your colon. Diverticula are weak spots in the muscular layer that cause the inside lining or mucosa, to pocket her pouch outwards. The pockets are known as diverticula, and the condition of having them is called diverticulosis. Some patients will experience pain and inflammation related to these. We refer to those flareups as diverticulitis. I will attach some general information here about colorectal polyps as well as diverticulosis. If you need anything, or h ave any questions at all, please do not hesitate to call. Otherwise, my office will be in touch once we have the results from the pathologist. 1. If tolerated, consume a soft, low fiber diet for 1-2 days. 2[address] Do not drive, drink alcohol, operate machinery, make critical decisions, or do activities that require coordination or balance for 24 hours. 3. Because air was put into your colon during the procedure, expelling air from your rectum (passing gas or farting) is normal. 4. You may not have a bowel movement for 1-3 days because of the colonoscopy prep. This is normal. 5. You may experience a sore throat for 24 to 48 hours. You may use throat lozenges or gargle with warm salt water to relieve the discomfort. 6. Because air was put into your stomach during the procedure, you may expe rience some belching. 7. Go directly to the emergency room if you notice any of the following: Develop chills (warm to touch), or if you have a thermometer and your temperature is above 101 Difficulty breathing or difficultly swallowing Persistent vomiting Severe abdominal pain, other than gas cramps Severe chest pain Black, tarry stools Any bleeding ? exceeding one tablespoon 8. Call your physician if the site where your intravenous was started becomes red, swollen, painful, and warm to touch. 9. Your physician has reviewed your pre-procedure medications. Please continue to take those medications as previously ordered. You will be given specific information/education regarding any changes to your medications before leaving. Stand Alone Forms: Portal Information Activity:: Activity as Tolerated Diet:: As Tolerated DS: Diagnosis Discharge Diagnosis (1) Encounter for colonoscopy due to history of colonic polyp: Status: Acute Asessment and Plan: Follow-up on polypectomy results
--- NOTE | 2025-02-27 20:24 | ENDO_ITS ---
Date of service: 02/28/25 Time of Service: 08:40 Endoscopy Report DATE OF PROCEDURE: 02/28/25 PRE-OP DIAGNOSIS: GERD with dyspecia and screening colonoscopy POST-OP DIAGNOSIS: other (Hill grade 4 sliding hiatal hernia; colon polyps, sigmoid diverticulosis) PROCEDURE: EGD with biopsies and colonoscopy with polypectomy SURGEON: Brad Arguelles ANESTHESIA TYPE: General:No Airway ESTIMATED BLOOD LOSS: 10 PATHOLOGY: other (Nondirected biopsies of gastric antrum and body to rule out Helicobacter pylori. Biopsies of GE junction to rule out Reaves's esophagus. 0.25 cm flat cecal polyp, 0.25 cm flat polyp at 70 cm, 0.25 cm flat polyp at 35 cm) COMPLICATIONS: None DISPOSITION: same day INDICATIONS: Zander is a 64-year-old male with dyspepsia and GERD symptoms who needs a EGD to assess his hiatal hernia and rule out Reaves's esophagus. He is also due for his next screening colonoscopy. PREP: Miralax/Dulcolax PROCEDURE START TIME: 07:49 PROCEDURE END TIME: 08:18 COLONOSCOPY RETRACTION TIME: 18 FINDINGS: Who grade 4 sliding hiatal hernia with normal-appearing Z-line at 36 cm past the incisors; sigmoid diverticulosis, 0.25 cm flat cecal polyp, 0.25 cm flat polyp at 70 cm, 0.25 cm flat polyp at 35 cm; previous colonoscopic tattoo around 40 cm PROCEDURE DESCRIPTION: After the initiation of anesthesia, and with the assistance of a bite block, I advanced a standard gastroscope through the mouth past the hypopharynx and into the esophagus.? Under the direct vision of the scope, I advanced down the esophagus towards the stomach.? The upper and midesophagus were normal in course and caliber. The Z-line is encountered around 36 cm from the incisors and appears regular. There is evidence of a sliding hiatal hernia, with the diaphragm hiatus appearing around 40 cm past the incisors. I advanced down below the level of the diaphragm hiatus and insufflated the stomach into the rugae were obliterated. I performed retroflexion. Again seen is a sliding hiatal hernia. This is a Hill grade 4. There are few diminutive gastric polyps, but otherwise the gastric mucosa appears normal and healthy. The gastric antrum is spared of any polyps. I can advance down into the duodenum with ease. The duodenum is normal. I brought the camera back up into the stomach and perform some nondirected biopsies of the gastric antrum and body to rule out Helicobacter pylori. These were performed with cold forceps with minimal bleeding. I then brought the camera back up to the Z-line and perform four-quadrant biopsies to rule out Reaves's esophagus. With narrowband imaging, my suspicion for Reaves's is low. I then emptied the stomach completely before removing the gastroscope. We then transition to the look colonoscopic portion of the exam.? The perineum and skin were normal, as was the anal verge.? There was no evidence of external hemorrhoids.? Next, I performed a digital rectal exam.? I did not appreciate any abnormal findings.? Next, I advanced a colonoscope into the rectal vault.? I performed retroflexion.? This appeared normal. Using irrigation, I then advanced the colonoscope beyond the rectal folds and into the sigmoid colon before advancing towards the cecum.? The scope was noted to be in the cecum by identification of the ileocecal valve and appendiceal orifice.? There is a 0.25 cm flat polyp in the cecum. I removed this with cold forceps with minimal bleeding. I then began withdrawing the colonoscope using repeated irrigation as necessary for full evaluation of the colonic mucosa. ?Around 70 cm past the anal verge was another 0.25 cm flat polyp. This was also removed with cold forceps. Beginning around 50 cm past the anal verge is some diverticulosis. There is a previous colonoscopic tattoo around 40 cm past the anus. Several passes were taken across this area. I saw no evidence of any mucosal abnormalities here. There is, however, another 0.25 cm flat polyp around 35 cm past the anus. This was removed with cold forceps. There was minimal bleeding from this site as we ll. Once the scope was withdrawn to the level of the rectum, great care was taken to examine portions of the rectal folds.? Finally, the scope was withdrawn and the patient was brought to the same-day surgery recovery unit as the anesthetic wore off. ?The findings and instructions were shared with the patient prior to discharge.
[2025-02-28 07:17] VITALS: BP 126/88; PULSE 83; RESP 16; TEMP 35.9; O2SAT 97
[2025-02-28] MEDS: Lactated Ringers 1,000 ML 80 ML IV (07:20)
--- NOTE | 2025-02-28 07:26 | W.ANESPRE ---
General Info Date of Service Date Performed: 02/28/25 Height: 5 ft 8 in Weight: 93.9 kg Body Mass Index (BMI): 31.4 Surgical Procedure: Operation Date: 02/28/25 08:20 Proposed Procedure Side Surgeon p Colonoscopy/Gastroscopy Brad Arguelles MD Meds Allergies and Home Medications Allergies Allergy/AdvReac Type Severity Reaction Status Date / Time oxycodone AdvReac Intermediate Headache Verified 02/28/25 07:14 Home Medication ?Medication ?Instructions ?Recorded omeprazole 20 mg tablet,delayed 20 mg PO DAILY AM 07/15/17 release apixaban 5 mg tablet (Eliquis) 5 mg PO BID 06/16/22 albuterol sulfate 90 mcg/actuation 1 - 2 puff inhalation .q4-6 PRN 02/10/25 aerosol inhaler (Ventolin HFA) meclizine 25 mg tablet 25 mg PO Q6H PRN 02/10/25 levothyroxine 100 mcg capsule 100 mcg PO DAILY 02/15/25 Current Visit Medications: Current Medications Generic Name Dose Route Start Last Admin Trade Name Jefferyq PRN Reason Stop Dose Admin Ringer's Solution 1,000 mls @ 80 mls/hr 02/28/25 06:00 02/28/25 07:20 IV 02/28/25 23:59 80 mls/hr INFUSION LAMONTE Administration Sodium Biphosphate/Sodium Phosphate 133 ml 02/28/25 06:00 Na Phosphate Enema-Adult 133 Ml Btl MN 02/28/25 23:59 DIRECTED PRN Sodium Chloride 0 ml 02/28/25 06:00 Normal Saline Flush 10 Ml Syr IV 02/28/25 23:59 PRN PRN Sodium Chloride 0 ml 02/28/25 06:00 Normal Saline 10 Ml Vial IJ 02/28/25 23:59 DIRECTED PRN Sterile Water 0 ml 02/28/25 06:00 Water,Injection,Sterile 10 Ml Vial IJ 02/28/25 23:59 DIRECTED PRN PFSH Active Problems Active Problems: Problem Status Onset Code Encounter for colonoscopy due to history of colonic polyp Acute Z12.11, Z86.0100 Sessile serrated polyp of colon Acute D12.6 Hiatal hernia with gastroesophageal reflux Acute K44.9, K21.9 Diverticulosis of large intestine Acute K57.30 Reactive airway disease Acute J45.909 GERD without esophagitis Acute K21.9 Deep vein thrombosis of lower extremity Acute I82.409 joint terminal attack controller current use of anticoagulant Acute Z79.01 Hyperlipidemia Acute E78.5 Essential hypertension Acute I10 Pain, joint, shoulder, left Acute M25.512 Labyrinthitis Acute H83.09 Amplified musculoskeletal pain, localized Acute M79.18, 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 Fracture of patella, right, closed Acute 06/30/23 S82.001A Medical History Medical History GERD (gastroesophageal reflux disease) Phlegmasia cerulea dolens DVT (deep venous thrombosis) Peripheral vascular disease Hypothyroidism Surgical History Surgical History History of colonoscopy with polypectomy (~03/11/21) history of sessile serrated, colonoscopy every 3 yrs at [facility] History of esophagogastroduodenoscopy (EGD) (~03/11/21) History of tonsillectomy 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 History of fasciotomy Right leg S/P IVC filter Tobacco Smoking/Tobacco Use Status: Never Alcohol Alcohol Intake: current Alcohol intake frequency: holidays/special occasions only Substance Use Substance use type: does not use Vital Signs and Lab Results Vital Signs Most Recent Vital Signs in EMR: Most Recent Vital Signs Temp Pulse Resp BP Pulse Ox 35.9 C L 83 16 126/88 97 02/28/25 07:17 02/28/25 07:17 02/28/25 07:17 02/28/25 07:17 02/28/25 07:17 Lab Results Complete Metabolic Panel: Sodium, (136-145) 142 mmol/L 02/10/25, 07:05 Potassium, (3.5-5.1) 4.0 mmol/L 02/10/25, 07:05 Chloride, (98-107) 105 mmol/L 02/10/25, 07:05 Carbon Dioxide, (20.0-31.0) 28.8 mmol/L 02/10/25, 07:05 BUN, (9-23) 19 mg/dL 02/10/25, 07:05 Creatinine, (0.73-1.18) 0.79 mg/dL 02/10/25, 07:05 Est GFR (CKD-EPI 2020), (mL/min/1.73m2) 98.26 02/10/25, 07:05 Calcium, (8.3-10.6) 9.0 mg/dL 02/10/25, 07:05 Albumin, (3.2-5.0) 4.5 g/dL 02/10/25, 07:05 Glucose, (74-106) 94 mg/dL 02/10/25, 07:05 Liver Function Panel: ALT, (10-49) 18 U/L 02/10/25, 07:05 AST, (<34) 22 U/L 02/10/25, 07:05 Thyroid Panel: TSH, (0.55-4.78) 5.61 uIU/mL H 02/10/25, 07:05 Imaging and Studies Imaging and Studies Study information below may be from another EMR and interpreted by another provider. Please see original notes in EMR for more complete details. EKG Summary: 06/16/22 Conclusion Gender not entered, assumed to be male for purpose of ECG interpretation Sinus rhythm...normal P axis, V-rate 60- 99 Probable lateral infarct, old...Q>35mS, abnormal ST-T, V5-6 I aVL. Anesthesia Assessment and Plan Anesthesia History Personal History: No History of Anesthesia Complications Family History: No Family History of Anesthesia Complications Exercise Tolerance Exercise Tolerance: Metabolic Equivalents>4 Pertinent Negatives Pertinent Negatives: No Symptoms of GERD, No Major Cardiovascular Symptoms or Complaints, No Major Pulmonary Symptoms or Complaints and No History of CVA/TIA Cardiac & Pulmonary Exam Cardiac Exam: Normal S1/S2 Heart Sounds Pulmonary Exam: Clear Bilateral Breath Sounds Implantable Cardiac Device Does patient have a Pacemaker or an ICD?: No Airway Exam Known Difficult Airway: No Mallampati Class: 2 Mouth Opening: Normal (> 3cm) Thyromental Distance: Greater than 3 cm Neck Range of Motion: Full ROM Neck Circumference: Normal Teeth Condition: Normal Dentition ASA Classification ASA Score: ASA 2 Emergency Case?: No NPO Status NPO Status: NPO Clears >2 hours, Solids >8 hours Anesthesia Plan Resuscitation Status: Full Code Anesthesia Technique: General Anesthesia Airway Planned: Natural Airway Monitors Used: Standard Monitors
[2025-02-28 07:27] VITALS: BMI 31.4
--- NOTE | 2025-02-28 07:51 | BOWEL_PTH ---
PATIENT: Zander Waldron LOC: [facility] U#:[id number] AGE/SX: 64/M ROOM: RE02/28/[address]: Brad Arguelles MD : 1960 BED: DIS: 02/28/2025 SPEC #: [id number] RECD: 02/28/25 12:40 STATUS: TREY RE #: [id number] PAPITO: 02/28/25 07:[address]: Brad Arguelles DEPT: Surgical Specimen RECD BY: Shania Bill ENTERED: 02/28/25 12:41 SP TYPE: Bowel OTHR DR: Farhan Moss Tissues: 1 - STOMACH BIOPSY 2 - STOMACH BIOPSY 3 - ESOPHAGUS BIOPSY 4 - BIOPSY BOWEL 5 - BIOPSY BOWEL 6 - BIOPSY BOWEL Procedures: GROSS AND MICRO LEVEL 4 Comments: [id number]
[2025-02-28 08:25] VITALS: BP 102/78; PULSE 71; RESP 14; TEMP 36.6; O2SAT 95
[2025-02-28 08:57] VITALS: BP 117/95; PULSE 81; RESP 16; TEMP 36.4; O2SAT 94
--- NOTE | 2025-02-28 09:31 | W.ANESPOSTOP ---
Postoperative Evaluation Date, Time and Location Date Performed: 02/28/25 Time Performed: 09:27 Patient Location: Day Surgery Unit Vital Signs Most Recent Imported Vital Signs: Most Recent Vital Signs Temp Pulse Resp BP Pulse Ox 36.4 C L 81 16 117/95 H 94 02/28/25 08:57 02/28/25 08:57 02/28/25 08:57 02/28/25 08:57 02/28/25 08:57 Pain Score Most Recent Pain Score: Most Recent Pain Score Pain Level 0 02/28/25 08:57 Assessment Mental Status: Awake (Alert & Oriented to Patient Baseline) Airway and Respiratory Function: Patent airway with normal (patient baseline) respiratory exam Cardiovascular Function: Hemodynamically Stable Hydration Status: Adequately Hydrated Nausea & Vomiting: No Nausea or Vomiting Pain: Pt. Denies Any Pain Peripheral Nerve Block: Patient did not receive a nerve block
== END 2025-02-28 09:28 | disposition home or self-care (01) ==
LOC: SUR 06:59
PROVIDERS: PCP Family Medicine; Visit Provider Surgery
PROC: (CPT 45380; principal; 2025-02-28 08:15)
DX: Z12.11 Encounter for screening for malignant neoplasm of colon (principal); D12.0 Benign neoplasm of cecum; D12.4 Benign neoplasm of descending colon; K44.9 Diaphragmatic hernia without obstruction or gangrene; K57.30 Diverticulosis of large intestine without perforation or abscess without bleeding; K21.9 Gastro-esophageal reflux disease without esophagitis
CPT/HCPCS: 45380; 43239; 88305; J2003; J2704